=== PATIENT | male | born 1935 | race Caucasian/White ===

== ENCOUNTER 2017-04-24 14:58 | Inpatient (IN) ==
[2017-04-24 15:16] VITALS: BMI 31.1
[2017-04-24] MEDS ORDERED: ACETAMINOPHEN 500 MG TABLET PO PRN (16:05)
--- NOTE | 2017-04-24 16:39 | IRU History & Physical Report ---
[facility] IRU Date: [id number] Chief complaint: My arm hurts HPI: Mr. Mahajan underwent left reverse shoulder procedure at [facility] on 04/22/2017. He had severe degenerative arthritis resulting in the need for this procedure. At home he does typically walk with a 4 wheeled walker. However the present time he is nonweightbearing on the left shoulder because the recent surgery. The patient's cognition has transiently declined. He was confused in the immediate postoperative timeframe. When I evaluated him today he was more alert and seemed to be aware of his surroundings. He does have multiple comorbidities at home. He does have diabetes mellitus type 2 on oral agents only. He is monitoring his blood sugars twice daily. He reports that his fasting sugars typically are around 89-100. In addition he has hypertension, history of coronary artery disease status post myocardial infarction, osteoarthritis as well as depression. Patient states that he is very motivated to get back home. He lives with his . At home he is independent with activities. As noted, he does walk with a four-wheel walker which is not going to be feasible at this point because of his left reverse shoulder procedure. He has a ramp getting up into his home. He does have a basement but does not go down the stairs. Patient does have urinary incontinence. He is at risk for skin breakdown in this regard. He is also at risk for cellulitis and skin infection in view of his diabetes mellitus. Because of the reverse shoulder procedure, he will require occupational therapy to be trained how to cleanse himself and avoid skin breakdown. Patient has developed some postoperative anemia. This will need to be monitored as well and may impact his exercise tolerance. Finally, he does have recent use of supplemental oxygen via nasal cannula in the immediate postoperative timeframe. He does have some shortness of breath. The following medical conditions will impact his therapy: 1, dyspnea with activity and acute respiratory failure resulting in need for supplemental oxygen 2. Diabetes mellitus type 2 increasing his risk for skin breakdown 3. Urinary incontinence increasing his risk for skin breakdown. 4. Depression 5. Anemia which may result in further risk of hypotension and require blood transfusion. The following therapies will be needed: 1. Physical therapy: 90 minutes daily, 5 days weekly in order to improve ambulation and safety in 2. Occupational therapy: 90 minutes daily, 5 days weekly in order to teach and ensure safety with upper and lower extremity dressing in view of the reverse shoulder procedure. In addition personal hygiene will be addressed in view of his urinary incontinence in order to prevent skin breakdown. 3. Dietitian: Patient education will be provided with regard to 4. Medical management: He will require physician visit at least 3 days weekly in order to treat acute respiratory failure which has required oxygen therapy, postoperative anemia, diabetes mellitus, depression. 5. 24 hour Rehabilitation Nursing to monitor and address the following: Blood glucose monitoring for diabetes mellitus, oxygen saturations in view of recent anemia and hypoxemia, mental status changes in view of recent confusion which has improved. 6. Care Management to address the following: Home needs including assistive devices, Meals on Wheels etc. if needed. Review of Systems - Constitutional Constitutional: Present: daytime sleepiness, fatigue. Absent: fever(s) - EENMT Eyes: Absent: blurry vision, change in vision, diplopia Ears: Absent: ear discharge, ear pain Balance: Absent: vertigo Mouth/Throat: Absent: pain, sore throat, changes in swallowing - Cardiovascular Cardiovascular: Present: dyspnea on exertion. Absent: chest pain, palpitations Rhythm: Present: regular rhythm Vascular: Absent: intermittent claudication, pallor of an extermity, pedal edema - Respiratory Respiratory: Present: dyspnea. Absent: cough, hemoptysis, wheezing - Gastrointestinal Gastrointestinal: Absent: abdominal pain, change in bowel habits, change in stool character, constipation, diarrhea - Musculoskeletal Musculoskeletal: Present: limited range of motion (left reverse shoulder.) - Neurological Neurological: Present: confusion - Psychiatric Psychiatric: Present: depression. Absent: anxiety PFS Patient Stated Medical History Cerebrovascular Accident Yes: TIA Dementia Yes Transient Ischemic Attacks ( Yes: Age 76 TIA) Hearing Loss Yes Coronary Artery Disease Yes Hypertension Yes Myocardial Infarction Yes: 2015, stent placed Pneumonia Yes Sleep Apnea Yes Diabetes Mellitus Type 2 Yes Gastroesophageal Reflux Yes Disease Ulcer Yes Hx Incontinence Yes Anemia Yes Osteoarthritis Yes Anesthesia Reactions No Blood Transfusions No Chemotherapy No Malignant Hyperthermia No Other No Now No Clinic Medical History (Last Updated 04/24/17 @ 08:57 by AUTUMN Joyner) Anxiety (Chronic Medical) Coronary artery disease (Chronic Medical) Depression (Chronic Medical) Diabetes (Chronic Medical) Heart attack (Chronic Medical) High blood pressure (Chronic Medical) High cholesterol (Chronic Medical) Osteoarthritis (Chronic Medical) 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 Rt VAIBHAV Family History: Family History (Last Reviewed 03/27/17 @ 10:05 by Mateo Xavier MD) Mother Arthritis Sister High blood pressure High cholesterol - Social History Smoking status: Former smoker packs per day: 2 (From age [age]) Packs-years: 62 Substance use type: does not use Alcohol intake frequency: does not drink Current occupational status: retired Current residence: Apartment/Private Home Medications Home Medications Medication Instructions Recorded Confirmed Type Pravastatin Sodium [Pravachol] 40 mg PO HS #0 05/04/10 04/24/17 History raNITIdine HCl [Ranitidine HCl] 300 mg PO HS #0 05/04/10 04/24/17 History Sucralfate 1 gm PO HS #0 07/20/11 04/24/17 History Clopidogrel Bisulfate [Plavix] 75 mg PO DAILY #0 04/13/13 04/24/17 History Metformin HCl 1,000 mg PO BID #0 03/28/16 04/24/17 History Carvedilol 6.25 mg PO BID #0 11/11/16 04/24/17 History Escitalopram Oxalate 20 mg PO DAILY #0 11/11/16 04/24/17 History Quetiapine Fumarate 50 mg PO HS #0 11/11/16 04/24/17 History Acetaminophen [Acetaminophen Extra 500 mg PO Q4HPRN PRN 03/27/17 04/24/17 History Strength] Aspirin *EC* [Ecotrin] 1 tab PO DAILY 03/27/17 04/24/17 History Oxybutynin Chloride [Ditropan Xl] 10 mg PO DAILY 04/22/17 04/24/17 History Allergies Allergy/AdvReac Type Severity Reaction Status Date / Time aspirin AdvReac Unknown Bleeding Verified 04/22/17 15:43 hydrocodone AdvReac Unknown Confusion Verified 04/22/17 15:43 oxycodone AdvReac Unknown Confusion Verified 04/22/17 15:43 Exam Height: 1.85 m Weight: 106.9 kg Body Mass Index: 31.1 - Constitutional Present: no acute distress, cooperative (patient was initially somewhat somnolent but was easily awakened. Seems to be a bit depressed.) - Routine HEENT Exam Head: Present: normocephalic Eye: Present: EOMI, PERRL. Absent: conjunctival icterus, scleral injection ENT: Present: mucous membranes moist - Routine Neck Exam Present: supple, full ROM - Routine Chest/Breast/Axilla Exam Chest wall: Absent: tenderness - Routine Respiratory Exam Present: dyspnea, CTA bilaterally. Absent: accessory muscle use - Routine Cardiovascular Exam Present: RRR, S1, S2, no murmur - Routine Abdominal Exam Present: soft, normoactive bowel sounds, non distended, non tender - Routine Extremities Exam Present: non tender, pulses intact. Absent: edema Comments: Extremity examination demonstrates significant toe deformity which may be a factor in his ambulatory ability. Pulses are good. There is no edema. There is no cyanosis. - Routine Skin Exam Present: intact, dry. 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 He will require retraining and ambulation and transfers as well as addressing both upper and lower extremity. (2) S/p reverse total shoulder arthroplasty Qualifiers: Laterality: left Qualified Code(s): Z96.612 - Presence of left artificial shoulder joint Current visit: Yes Status: Acute See above. (3) Coronary artery disease Qualifiers: Coronary Disease-Associated Artery/Lesion type: [place] artery [place] vs. transplanted heart: [place] heart Associated angina: without angina Qualified Code(s): I25.10 - Atherosclerotic heart disease of [place] coronary artery without angina pectoris Current visit: No Status: Chronic (4) Depression Qualifiers: Depression Type: major depressive disorder Major depression recurrence: recurrent Active/Remission status: in partial remission Qualified Code(s): F33.41 - Major depressive disorder, recurrent, in partial remission Current visit: No Status: Chronic Patient has a diagnosis of depression. This will impact his recovery and will require 24 hour rehab nursing observation and management. (5) Diabetes Qualifiers: Diabetes mellitus type: type 2 Diabetes mellitus complication status: with circulatory complication Diabetes mellitus complication detail: with other circulatory complications Diabetes mellitus terminal manager insulin use: without terminal manager use Qualified Code(s): E11.59 - Type 2 diabetes mellitus with other circulatory complications Current visit: No Status: Chronic Patient monitors his sugars twice daily. He has a history of coronary artery disease likely impacted by the diabetes. He does not know what his A1c is running. However the presence of diabetes will require 24-hour nursing monitoring. In addition he is at risk for skin breakdown due to his incontinence and the diabetes. He will require occupational therapy for training on personal hygiene. (6) Urinary incontinence Qualifiers: Urinary Incontinence type: urinary incontinence without sensory awareness Qualified Code(s): N39.42 - Incontinence without sensory awareness Current visit: Yes Status: Chronic His urinary incontinence will increase his risk for skin breakdown and will require occupational therapy training for prevention of this. (7) Postoperative anemia Current visit: Yes Status: Acute He will require medical management and physician evaluation at least 3 days weekly to monitor his anemia and other medical issues. (8) Acute respiratory failure Qualifiers: Respiratory failure complication: hypoxia Qualified Code(s): J96.01 - Acute respiratory failure with hypoxia Current visit: Yes Status: Acute Patient required oxygen in the postoperative timeframe. Currently he is on room air but this will need to be monitored. DVT Prophylaxis: SCD's, Lovenox Resuscitation Status: Full Code - Course Hospital Course: Carrington Galaviz MD: - Interventions to Obtain Goals Goals Progress/Modifications: Patient's goals will include retraining in upper and lower extremity dressing in view of the reverse shoulder procedure, safety with transfers and ambulation to return him to an independent or modified independent level of functioning at his home with his . Barriers to progress will include pain control as well as the fact that he will not be able to utilize his left shoulder. In addition his depression may or may not be a factor in his progress.
--- NOTE | 2017-04-24 16:59 | IRU 24Hr Post Admit Eval ---
24 Hr Post Admission Physical - Relevant Changes Relevant Changes: No Reviewed: I have reviewed the patient's information and concur with the finding and results of the pre-admission screen. Certification: I certify the patient for rehabilitation. 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 Status: Chronic Code(s): M19.112 - Post-traumatic osteoarthritis, left shoulder; S46.002S - Unspecified injury of muscle(s) and tendon(s) of the rotator cuff of left shoulder, sequela Classification: Present on IRF Admission, IRF Tx That Should Address Diagnosis, Diagnosis Requiring Medical Follow Up (2) S/p reverse total shoulder arthroplasty Status: Acute Qualifiers: Laterality: left Qualified Code(s): Z96.612 - Presence of left artificial shoulder joint Code(s): Z96.619 - Presence of unspecified artificial shoulder joint Classification: Present on IRF Admission, IRF Tx That Should Address Diagnosis, Diagnosis Requiring Medical Follow Up (3) Coronary artery disease Status: Chronic Qualifiers: Coronary Disease-Associated Artery/Lesion type: [place] artery [place] vs. transplanted heart: [place] heart Associated angina: without angina Qualified Code(s): I25.10 - Atherosclerotic heart disease of [place] coronary artery without angina pectoris Code(s): I25.10 - Atherosclerotic heart disease of [place] coronary artery without angina pectoris (4) Depression Status: Chronic Qualifiers: Depression Type: major depressive disorder Major depression recurrence: recurrent Active/Remission status: in partial remission Qualified Code(s): F33.41 - Major depressive disorder, recurrent, in partial remission Code(s): F32.9 - Major depressive disorder, single episode, unspecified Classification: Present on IRF Admission, Diagnosis Requiring Medical Follow Up (5) Diabetes Status: Chronic Qualifiers: Diabetes mellitus type: type 2 Diabetes mellitus complication status: with circulatory complication Diabetes mellitus complication detail: with other circulatory complications Diabetes mellitus retirement insulin use: without retirement use Qualified Code(s): E11.59 - Type 2 diabetes mellitus with other circulatory complications Code(s): E11.9 - Type 2 diabetes mellitus without complications Classification: Present on IRF Admission, IRF Tx That Should Address Diagnosis, Diagnosis Requiring Medical Follow Up (6) Urinary incontinence Status: Chronic Qualifiers: Urinary Incontinence type: urinary incontinence without sensory awareness Qualified Code(s): N39.42 - Incontinence without sensory awareness Code(s): R32 - Unspecified urinary incontinence Classification: Present on IRF Admission, IRF Tx That Should Address Diagnosis, Diagnosis Requiring Medical Follow Up (7) Postoperative anemia Status: Acute Code(s): D64.9 - Anemia, unspecified Classification: Present on IRF Admission, IRF Tx That Should Address Diagnosis, Diagnosis Requiring Medical Follow Up (8) Acute respiratory failure Status: Acute Qualifiers: Respiratory failure complication: hypoxia Qualified Code(s): J96.01 - Acute respiratory failure with hypoxia Code(s): J96.00 - Acute respiratory failure, unspecified whether with hypoxia or hypercapnia Classification: Diagnosis Requiring Medical Follow Up - Prior Functional Status Lives With: Spouse Residence Type: Apartment/Private Home Assitive Devices: Four Wheeled Walker Prior Functional Status: Indep. at home or school, Used assistive device - Current Functional Status Failed Alternative Therapy: Arrived from Acute Care Patient Requirements: The patient requires oversight by rehabilitation physician to manage their rehabilitation treatment plan and multidisciplinary approach to care that can only be provided in an IRF and requires a multidisciplinary approach to care, provided by professional PTs, OTs, STs, dieticians, RTs, rehabilitation nurses and is not available in lesser levels of care. Limitiations Req: Mobility Impairment, ADL Impairment, Respiratory Impairment Physical Therapy Minutes: 90 Occupational Therapy Minutes: 90 Therapy: The patient is to receive therapy at least 5 days a week. ROM Deficit: Left Upper Extremity - Complications/Comorbidities Impact on Functional Outcomes: Patient's recent left reverse shoulder procedure has resulted in decreased ability for ADLs including upper and lower extremity dressing as well as ambulation. Barriers to Discharge: Weakness, Pain Control - Plan to Avoid Complications Plan to Avoid Complications: The patient cannot receive this care in a lesser intensive setting such as Retirement or Outpatient Therapy due to the patient requiring the following : Recent left reverse shoulder procedure resulting in markedly reduced ability for upper and lower extremity dressing as well as ambulation. He has diabetes mellitus type two and chronic urinary incontinence which place him at increased risk for skin breakdown. He will require intensive, individualized plan of care to involve physical therapy 90 minutes daily, 5 days weekly, occupational therapy, 90 minutes daily, 5 days weekly, dietitian, rehabilitation nursing on a 24-hour basis and physician management at least 3 days weekly to address these issues and to return him to his home and prior level of functioning.
[2017-04-24] MEDS: CARVEDILOL 6.25 MG TABLET PO SCH (17:59)
[2017-04-24] MEDS: METFORMIN 1,000 MG TABLET PO SCH (17:59)
--- NOTE | 2017-04-24 18:25 | Progress Note ---
Progress Note: I was going to start enoxeparin but noted the drop in hgb. Will hold off for now. SCD's are ordered.
[2017-04-24] MEDS ORDERED: ENOXAPARIN 40 MG/0.4 ML INJECTION SQ SCH (18:30)
[2017-04-24] MEDS ORDERED: NS FLUSH BAG 500ml IV PRN (19:11)
[2017-04-24] MEDS ORDERED: SALINE FLUSH 10ml SYRINGE IVF PRN (19:11)
[2017-04-24] MEDS: RANITIDINE 300 MG TABLET PO SCH (22:08)
[2017-04-24] MEDS: QUETIAPINE 50 MG TABLET PO SCH (22:09)
[2017-04-24] MEDS: PRAVASTATIN 40 MG TABLET PO SCH (22:09)
[2017-04-24] MEDS: SUCRALFATE 1 GM TABLET PO SCH (22:09)
[2017-04-25] MEDS: TRAMADOL 50 MG TABLET PO PRN ×2 (06:21→12:41)
[2017-04-25] MEDS ORDERED: FUROSEMIDE 20 MG/2 ML INJECTION IVP ONE (08:43)
[2017-04-25] MEDS: CARVEDILOL 6.25 MG TABLET PO SCH ×2 (09:43→18:14)
[2017-04-25] MEDS: METFORMIN 1,000 MG TABLET PO SCH ×2 (09:44→18:15)
[2017-04-25] MEDS: ESCITALOPRAM 20 MG TABLET PO SCH (09:45)
[2017-04-25] MEDS: POLYETHYL GLYCOL 3350 17gm PACKET PO SCH (09:45)
[2017-04-25] MEDS: CLOPIDOGREL 75 MG TABLET PO SCH (09:45)
[2017-04-25] MEDS: ASPIRIN *EC* 81 MG TABLET PO SCH (09:54)
--- NOTE | 2017-04-25 13:55 | IRU Progress Note ---
- Subjective/Serverity of Illness Mr. Mahajan states that he is tolerating therapy well. He arrived yesterday on the unit after a left reverse shoulder procedure. He does have a loose cough. He states he frequently has that. Lungs sound a bit wheezy at the present time. He denies any chest pain. Does have some dyspnea with exertion. He states that his bowels are moving. Nutritionally he states that he is eating adequately. The patient does have history of acute blood loss anemia/postoperative anemia. For that reason I held his Lovenox yesterday. His hemoglobin is actually up today so we will start Lovenox for DVT prophylaxis. Exam Vital Signs: Temperature 98.3 F 04/25/17 08:00 Pulse Rate 66 04/25/17 08:00 Respiratory Rate 20 04/25/17 08:00 Blood Pressure 146/67 H 04/25/17 08:00 Pulse Oximetry 95 04/25/17 08:00 Oxygen Delivery Method Room Air Height: 1.85 m Weight: 106.9 kg Body Mass Index: 31.1 - Constitutional Present: no acute distress Comments: The patient is awake, alert and oriented and in no acute distress. He reports that he frequently has a cough. Pupils are equal. The neck is supple. Chest: Has a few scattered wheezes bilaterally. No crackles noted. Cor: RR with no sunny, click nor murmur Abd: soft with normo-active bowel sounds. There are no masses, no tenderness and no guarding. Extremities: No edema is noted. There are good pulses in both ankles. No cyanosis is present. - Routine HEENT Exam Head: Present: normocephalic Eye: Present: EOMI, PERRL ENT: Present: mucous membranes moist - Routine Neck Exam Present: supple, full ROM - Routine Respiratory Exam Present: dyspnea, wheezes - Routine Cardiovascular Exam Present: RRR, S1, S2, no murmur - Routine Abdominal Exam Present: soft, normoactive bowel sounds, non distended, non tender - Routine Extremities Exam Absent: cyanosis, edema - Routine Skin Exam Present: intact. Absent: erythema - Routine Neurological Exam Present: alert, oriented X3, CN II-XII intact - Routine Psychiatric Exam Present: normal affect, normal thought process Results IRU - Labs Labs: Hemoglobin improved from 8.6-9.3. 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 (2) S/p reverse total shoulder arthroplasty Qualifiers: Laterality: left Qualified Code(s): Z96.612 - Presence of left artificial shoulder joint Current visit: Yes Status: Acute Seems to be stable status post shoulder arthroplasty. (3) Coronary artery disease Qualifiers: Coronary Disease-Associated Artery/Lesion type: [place] artery [place] vs. transplanted heart: [place] heart Associated angina: without angina Qualified Code(s): I25.10 - Atherosclerotic heart disease of [place] coronary artery without angina pectoris Current visit: No Status: Chronic Patient does have history of coronary artery disease. He denies any chest pain. He does have wheezes and some dyspnea however. (4) Depression Qualifiers: Depression Type: major depressive disorder Major depression recurrence: recurrent Active/Remission status: in partial remission Qualified Code(s): F33.41 - Major depressive disorder, recurrent, in partial remission Current visit: No Status: Chronic Patient does have history of depression. He is on Lexapro in this regard. Does tend to fall off to sleep occasionally. (5) Diabetes Qualifiers: Diabetes mellitus type: type 2 Diabetes mellitus complication status: with circulatory complication Diabetes mellitus complication detail: with other circulatory complications Diabetes mellitus prison insulin use: without terminal carman use Qualified Code(s): E11.59 - Type 2 diabetes mellitus with other circulatory complications Current visit: No Status: Chronic Blood sugars are stable at 114, 130, 174. No hypoglycemic spells are noted. He is on oral agents only. (6) Urinary incontinence Qualifiers: Urinary Incontinence type: urinary incontinence without sensory awareness Qualified Code(s): N39.42 - Incontinence without sensory awareness Current visit: Yes Status: Chronic Because the urinary incontinence, he is at risk of skin breakdown. Therapy will address personal hygiene as well. (7) Postoperative anemia Current visit: Yes Status: Acute Patient's hemoglobin did improve. We will start Lovenox at this point. (8) Acute respiratory failure Qualifiers: Respiratory failure complication: hypoxia Qualified Code(s): J96.01 - Acute respiratory failure with hypoxia Current visit: Yes Status: Acute He required oxygen in the immediate postoperative timeframe. Monitoring of saturations is occurring and he seems to be stable on room air at present. However does have a cough. (9) Acute bronchospasm Current visit: Yes Status: Acute Patient states that he is used to breathing treatments in the past. He does have wheezes bilaterally. He is coughing. There is no fever and he is not producing any sputum. We will utilize some albuterol and do a chest X-ray. DVT Prophylaxis: SCD's, Lovenox Resuscitation Status: Full Code - Course Hospital Course: Carrington Galaviz MD: 04/25/17 13:59 Tolerating therapy well. Chest exam shows some wheezes. Oxygen saturations are above 90% on room air however. We will check a chest x-ray, and initiate beta agonist therapy. Hemoglobin improved. Therefore we will start Lovenox for DVT prophylaxis. - Interventions to Obtain Goals PT Treatment Plan: Balance/Proprioception, Functional Activities, Gait Training , Patient/Family Education, Therapeutic Exercise OT Treatment Plan: ADL (Basic Care), Balance Training, Pt./Family Education Goals Progress/Modifications: Please note that the patient's individual plan of care was developed and documented today, requiring review of therapy notes, medical conditions and anticipated functional recovery. Please see separate document.
--- NOTE | 2017-04-25 14:04 | IRU Plan of Care ---
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 Code(s): M19.112 - Post-traumatic osteoarthritis, left shoulder; S46.002S - Unspecified injury of muscle(s) and tendon(s) of the rotator cuff of left shoulder, sequela Status: Chronic Classification: Present on IRF Admission, IRF Tx That Should Address Diagnosis, Diagnosis Requiring Medical Follow Up (2) S/p reverse total shoulder arthroplasty Qualifiers: Laterality: left Qualified Code(s): Z96.612 - Presence of left artificial shoulder joint Code(s): Z96.619 - Presence of unspecified artificial shoulder joint Status: Acute Classification: Present on IRF Admission, IRF Tx That Should Address Diagnosis, Diagnosis Requiring Medical Follow Up (3) Coronary artery disease Qualifiers: Coronary Disease-Associated Artery/Lesion type: [place] artery [place] vs. transplanted heart: [place] heart Associated angina: without angina Qualified Code(s): I25.10 - Atherosclerotic heart disease of [place] coronary artery without angina pectoris Code(s): I25.10 - Atherosclerotic heart disease of [place] coronary artery without angina pectoris Status: Chronic (4) Depression Qualifiers: Depression Type: major depressive disorder Major depression recurrence: recurrent Active/Remission status: in partial remission Qualified Code(s): F33.41 - Major depressive disorder, recurrent, in partial remission Code(s): F32.9 - Major depressive disorder, single episode, unspecified Status : Chronic Classification: Present on IRF Admission, Diagnosis Requiring Medical Follow Up (5) Diabetes Qualifiers: Diabetes mellitus type: type 2 Diabetes mellitus complication status: with circulatory complication Diabetes mellitus complication detail: with other circulatory complications Diabetes mellitus nursing home insulin use: without long term care social worker use Qualified Code(s): E11.59 - Type 2 diabetes mellitus with other circulatory complications Code(s): E11.9 - Type 2 diabetes mellitus without complications Status: Chronic Classification: Present on IRF Admission, IRF Tx That Should Address Diagnosis, Diagnosis Requiring Medical Follow Up (6) Urinary incontinence Qualifiers: Urinary Incontinence type: urinary incontinence without sensory awareness Qualified Code(s): N39.42 - Incontinence without sensory awareness Code(s): R32 - Unspecified urinary incontinence Status: Chronic Classification: Present on IRF Admission, IRF Tx That Should Address Diagnosis, Diagnosis Requiring Medical Follow Up (7) Postoperative anemia Code(s): D64.9 - Anemia, unspecified Status: Acute Classification: Present on IRF Admission, IRF Tx That Should Address Diagnosis, Diagnosis Requiring Medical Follow Up (8) Acute respiratory failure Qualifiers: Respiratory failure complication: hypoxia Qualified Code(s): J96.01 - Acute respiratory failure with hypoxia Code(s): J96.00 - Acute respiratory failure, unspecified whether with hypoxia or hypercapnia Status: Acute Classification: Diagnosis Requiring Medical Follow Up (9) Acute bronchospasm Code(s): J98.01 - Acute bronchospasm Status: Acute Classification: IRF Tx That Should Address Diagnosis, Complications Since IRF Admission - Relevant Changes Relevant Changes: No Reviewed: I have reviewed the patient's information and concur with the finding and results of the pre-admission screen. Certification: I certify the patient for rehabilitation. - Medical Prognosis Medical Prognosis: Good Vital Signs: Last Vital Signs Temp 98.3 F 04/25/17 08:00 Pulse 66 04/25/17 08:00 Resp 20 04/25/17 08:00 BP 146/67 H 04/25/17 08:00 Pulse Ox 95 04/25/17 08:00 - Anticipated Interventions Anticipated Interventions: The patient requires inpatient IRF care for PT, OT, and/or ST for residuals remaining from left reverse shoulder surgery resulting in muscular weakness and strength deficits. ROM Deficit: Left Upper Extremity - FIM Toileting Adaptive Equipment: Grab Bars Number of Incontinent Voids: 1 - Current Functional Status Failed Alternative Therapy: Arrived from Acute Care Patient Requires: The patient requires oversight by rehabilitation physician to manage their rehabilitation treatment plan and multidisciplinary approach to care that can only be provided in an IRF and requires a multidisciplinary approach to care, provided by professional PTs, OTs, STs, dieticians, RTs, rehabilitation nurses and is not available in lesser levels of care. Physical Therapy Minutes: 90 Occupational Therapy Minutes: 90 Therapy: The patient is to receive therapy at least 5 days a week. Plan of Care Comment: No significant modifications from initial plan of care are noted with the exception of the development of wheezes. - Anticipated LOS/Outcomes Anticipated Functional Outcome: It is anticipated Mr. Mahajan will be able to return home with his and be able to perform his activities of daily living including upper and lower extremity dressing and ambulation in a modified independent manner. Anticipated DC Destination: Home, Self Care, Home Health Service Home Safety Plan: The patient will be provided with the development of a Home Safety Plan for return to a home or home-like environment and and to ensure safety post discharge. - Plan to Avoid Complications Barriers to Attaining Goals: Weakness, Endurance, Medical Limitation Plan to Avoid Complications: The patient cannot receive this care in a lesser intensive setting such as [facility] or Outpatient Therapy due to the patient requiring the following : The patient has multiple medical problems including coronary artery disease, recent respiratory failure, recent acute postoperative anemia as well as new development of acute bronchospasm. He will require an individualized intensive program of physical therapy, occupational therapy, 24 rehabilitation nursing monitoring for his oxygen saturations and pulmonary status as well as medical supervision at least 3 days weekly for him to return home and avoid a readmission. .
[2017-04-25] MEDS: ENOXAPARIN 40 MG/0.4 ML INJECTION SQ SCH (14:40)
[2017-04-25] MEDS ORDERED: FUROSEMIDE 20 MG/2 ML INJECTION IVP STA (16:42)
--- NOTE | 2017-04-25 17:01 | Progress Note ---
Progress Note: Patient was noted to suddenly developed shortness of breath and hypoxemia. Oxygen saturations were initially in the 80s. Oxygen was applied by nasal cannula. This got the saturation up to over 90. However subsequently he went down into the 40s by report. Rapid response was called. I did go to evaluate the patient. He is awake, alert. He does feel short of breath. He denies any chest pain. His primary care physician Dr. Lewis has been contacted in this regard. He ordered a chest x-ray, breathing treatment and IV Lasix. In addition a Herman catheter is being placed.
--- NOTE | 2017-04-25 17:19 | Progress Note ---
Progress Note: Pt has had a good diuresis thus far. He is breathing better. There are a few wheezes still present on exam. He states that he feels much better. CXR reviewed and shows RLL fluffy infiltrate. Will defer to Dr. Lewis for further treatment; however, the patient is doing much better at present with sats 99- 100 on face mask at 5 liters.
[2017-04-25] MEDS: ALBUTEROL/IPRATROPIUM 2.5mg-0.5mg/3ml NEB AEROSOL SCH ×2 (17:21→18:59)
[2017-04-25] MEDS: RANITIDINE 300 MG TABLET PO SCH (22:39)
[2017-04-25] MEDS: SUCRALFATE 1 GM TABLET PO SCH (22:39)
[2017-04-25] MEDS: QUETIAPINE 50 MG TABLET PO SCH (22:39)
[2017-04-25] MEDS: PRAVASTATIN 40 MG TABLET PO SCH (22:39)
[2017-04-26] MEDS: ACETAMINOPHEN 500 MG TABLET PO PRN ×3 (04:26→19:16)
[2017-04-26] MEDS: TRAMADOL 50 MG TABLET PO PRN ×2 (06:51→13:30)
[2017-04-26] MEDS: ALBUTEROL/IPRATROPIUM 2.5mg-0.5mg/3ml NEB AEROSOL SCH ×5 (07:43→21:14)
--- NOTE | 2017-04-26 08:11 | XRay Report ---
Indication: SOA PROCEDURE: XR chest 1V: Encounter: Initial Comparison: April 05, 2016 Findings: Severe motion artifact limiting the quality the exam. Poor evaluation of the lung bases. Small areas of consolidation cannot be excluded nor can small pleural effusions. No gross pneumothorax. Upper lung evans are grossly clear and similar to the prior study. Cardiac silhouette remains enlarged. Mediastinal contours are grossly stable. Impression: Motion artifact limiting evaluation of the lung bases. I cannot exclude lower lobe infiltrates or small effusions. Repeat imaging is recommended. .
[2017-04-26] MEDS: METFORMIN 1,000 MG TABLET PO SCH ×2 (08:38→17:55)
[2017-04-26] MEDS: CARVEDILOL 6.25 MG TABLET PO SCH ×2 (08:38→17:55)
[2017-04-26] MEDS: ESCITALOPRAM 20 MG TABLET PO SCH (08:39)
[2017-04-26] MEDS: ASPIRIN *EC* 81 MG TABLET PO SCH (08:39)
[2017-04-26] MEDS: CLOPIDOGREL 75 MG TABLET PO SCH (08:39)
[2017-04-26] MEDS: ENOXAPARIN 40 MG/0.4 ML INJECTION SQ SCH (08:39)
[2017-04-26] MEDS: POLYETHYL GLYCOL 3350 17gm PACKET PO SCH (08:39)
[2017-04-26] MEDS: RANITIDINE 300 MG TABLET PO SCH (22:19)
[2017-04-26] MEDS: SUCRALFATE 1 GM TABLET PO SCH (22:19)
[2017-04-26] MEDS: PRAVASTATIN 40 MG TABLET PO SCH (22:19)
[2017-04-26] MEDS: QUETIAPINE 50 MG TABLET PO SCH (22:19)
[2017-04-27] MEDS: NALOXEGOL 12.5 MG TABLET PO SCH ×2 (05:23→07:13)
[2017-04-27] MEDS: ALBUTEROL/IPRATROPIUM 2.5mg-0.5mg/3ml NEB AEROSOL SCH ×6 (07:14→19:55)
[2017-04-27] MEDS: ESCITALOPRAM 20 MG TABLET PO SCH (09:03)
[2017-04-27] MEDS: METFORMIN 1,000 MG TABLET PO SCH ×2 (09:03→17:59)
[2017-04-27] MEDS: CLOPIDOGREL 75 MG TABLET PO SCH (09:03)
[2017-04-27] MEDS: CARVEDILOL 6.25 MG TABLET PO SCH ×2 (09:04→17:59)
[2017-04-27] MEDS: ASPIRIN *EC* 81 MG TABLET PO SCH (09:04)
[2017-04-27] MEDS: ENOXAPARIN 40 MG/0.4 ML INJECTION SQ SCH (09:04)
[2017-04-27] MEDS: POLYETHYL GLYCOL 3350 17gm PACKET PO SCH (09:05)
[2017-04-27] MEDS: TRAMADOL 50 MG TABLET PO PRN ×2 (10:06→16:13)
[2017-04-27] MEDS: ACETAMINOPHEN 500 MG TABLET PO PRN ×2 (12:27→20:40)
[2017-04-27] MEDS: QUETIAPINE 50 MG TABLET PO SCH (20:41)
[2017-04-27] MEDS: PRAVASTATIN 40 MG TABLET PO SCH (20:41)
[2017-04-27] MEDS: RANITIDINE 300 MG TABLET PO SCH (20:41)
[2017-04-27] MEDS: SUCRALFATE 1 GM TABLET PO SCH (20:41)
[2017-04-28] MEDS: TRAMADOL 50 MG TABLET PO PRN ×3 (00:19→15:52)
[2017-04-28] MEDS: SUCRALFATE 1 GM TABLET PO SCH ×2 (00:47→21:05)
[2017-04-28] MEDS: QUETIAPINE 50 MG TABLET PO SCH ×2 (00:48→21:05)
[2017-04-28] MEDS: RANITIDINE 300 MG TABLET PO SCH ×2 (00:48→21:05)
[2017-04-28] MEDS: PRAVASTATIN 40 MG TABLET PO SCH ×2 (00:48→21:05)
[2017-04-28] MEDS: NALOXEGOL 12.5 MG TABLET PO SCH (06:25)
[2017-04-28] MEDS: ALBUTEROL/IPRATROPIUM 2.5mg-0.5mg/3ml NEB AEROSOL SCH ×6 (07:18→17:35)
[2017-04-28] MEDS: ENOXAPARIN 40 MG/0.4 ML INJECTION SQ SCH (10:53)
[2017-04-28] MEDS: METFORMIN 1,000 MG TABLET PO SCH ×2 (10:53→17:36)
[2017-04-28] MEDS: CARVEDILOL 6.25 MG TABLET PO SCH ×2 (10:54→17:36)
[2017-04-28] MEDS: CLOPIDOGREL 75 MG TABLET PO SCH (10:54)
[2017-04-28] MEDS: ESCITALOPRAM 20 MG TABLET PO SCH (10:54)
[2017-04-28] MEDS: ASPIRIN *EC* 81 MG TABLET PO SCH (10:54)
[2017-04-28] MEDS: ACETAMINOPHEN 500 MG TABLET PO PRN (17:36)
[2017-04-29] MEDS: ALBUTEROL/IPRATROPIUM 2.5mg-0.5mg/3ml NEB AEROSOL SCH ×4 (01:43→19:24)
[2017-04-29] MEDS: NALOXEGOL 12.5 MG TABLET PO SCH (06:05)
[2017-04-29] MEDS: CARVEDILOL 6.25 MG TABLET PO SCH ×2 (08:39→17:47)
[2017-04-29] MEDS: METFORMIN 1,000 MG TABLET PO SCH ×2 (08:39→17:48)
[2017-04-29] MEDS: ESCITALOPRAM 20 MG TABLET PO SCH (08:40)
[2017-04-29] MEDS: TRAMADOL 50 MG TABLET PO PRN (08:40)
[2017-04-29] MEDS: ASPIRIN *EC* 81 MG TABLET PO SCH (08:40)
[2017-04-29] MEDS: ENOXAPARIN 40 MG/0.4 ML INJECTION SQ SCH (08:41)
[2017-04-29] MEDS: CLOPIDOGREL 75 MG TABLET PO SCH (08:45)
--- NOTE | 2017-04-29 10:31 | IRU Progress Note ---
- Subjective/Serverity of Illness Mr. Mahajan was evaluated in his room today. In addition, I visited with physical therapy regarding his situation. He is excessively sleepy this morning for some reason. He reports he did not sleep well last night. He is on Seroquel every night. He did not really want to talk to me much this morning although he is congenial. He states that his left shoulder continues to hurt. He is not supposed to be using a but occasionally does move the left arm. Continues to progress with physical therapy and occupational therapy. Medically he does have history of dyspnea with hypoxemia. Did have some fluid excess last week after blood transfusion. That was successfully treated with oxygen therapy and diuresis. Denies any dyspnea at the present time and denies cough or sputum. Chest x-ray was reviewed and appeared to possibly show some infiltrates. However this time his lungs are clear and he does not have any wheezing nor any evidence of infection. He does have underlying depression as well. He is on Lexapro. This could be a factor in his sleepiness. Exam Vital Signs: Temperature 98.6 F 04/29/17 07:23 Pulse Rate 66 04/29/17 07:23 Respiratory Rate 16 04/29/17 07:23 Blood Pressure 148/70 H 04/29/17 07:23 Pulse Oximetry 92 04/29/17 07:23 Oxygen Delivery Method Room Air Oxygen Flow Rate 1 Height: 1.85 m Weight: 106.9 kg Body Mass Index: 31.1 - Constitutional Present: no acute distress, somnolent (he is sleepy but easily awakened. He is upset that I did awaken him in fact.) Comments: The patient is sleepy but easily awakened. When he is awake he appears to be oriented and complains predominantly of left shoulder pain. Pupils are equal. The neck is supple. Chest: Clear to auscultation bilaterally. Cor: RR with no sunny, click nor murmur Abd: soft with normo-active bowel sounds. There are no masses, no tenderness and no guarding. Extremities: No edema is noted. No cyanosis is present. Left arm is in a sling. - Routine HEENT Exam Head: Present: normocephalic - Routine Neck Exam Present: supple - Routine Respiratory Exam Present: CTA bilaterally - Routine Cardiovascular Exam Present: RRR, S1, S2, no murmur - Routine Abdominal Exam Present: soft, normoactive bowel sounds, non distended, non tender - Routine Extremities Exam Present: no edema - Routine Skin Exam Present: intact - Routine Neurological Exam Present: oriented X3, CN II-XII intact (seems sleepy. Possibly secondary to not sleeping well at night although not certain. No focal neurologic signs.) - Routine Psychiatric Exam Present: normal affect, normal thought process, cooperative, depressed Results IRU - Labs Labs: Reviewed labs. Hemoglobin stable after transfusion. 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 He is progressing with therapy. Somnolence appears to be a barrier to his progress however. (2) S/p reverse total shoulder arthroplasty Qualifiers: Laterality: left Qualified Code(s): Z96.612 - Presence of left artificial shoulder joint Current visit: Yes Status: Acute Clinically he is stable after his arthroplasty. He is learning to find alternative ways to manage ADLs in view of his recent arthroplasty and immobility of the left shoulder. (3) Coronary artery disease Qualifiers: Coronary Disease-Associated Artery/Lesion type: [place] artery [place] vs. 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 I believe his depression probably plays a role in his sleepiness. He is fairly congenial when he awakens however. (5) Diabetes Qualifiers: Diabetes mellitus type: type 2 Diabetes mellitus complication status: with circulatory complication Diabetes mellitus complication detail: with other circulatory complications Diabetes mellitus prison insulin use: without prison use Qualified Code(s): E11.59 - Type 2 diabetes mellitus with other circulatory complications Current visit: No Status: Chronic (6) Urinary incontinence Qualifiers: Urinary Incontinence type: urinary incontinence without sensory awareness Qualified Code(s): N39.42 - Incontinence without sensory awareness Current visit: Yes Status: Chronic (7) Postoperative anemia Current visit: Yes Status: Acute (8) Acute respiratory failure Qualifiers: Respiratory failure complication: hypoxia Qualified Code(s): J96.01 - Acute respiratory failure with hypoxia Current visit: Yes Status: Acute Oxygen saturations are in the low 90s on room air. No cough and no sputum is noted. Follow-up chest x-ray will be indicated closer to the time of dismissal. (9) Acute bronchospasm Current visit: Yes Status: Acute DVT Prophylaxis: SCD's, Lovenox Resuscitation Status: Full Code - Course Hospital Course: Carrington Galaviz MD: 04/25/17 13:59 Tolerating therapy well. Chest exam shows some wheezes. Oxygen saturations are above 90% on room air however. We will check a chest x-ray, and initiate beta agonist therapy. Hemoglobin improved. Therefore we will start Lovenox for DVT prophylaxis. 04/29/17 10:36 Patient's somnolence and left shoulder pain are barriers to progress. He is progressing with therapy. Continue current plan. - Interventions to Obtain Goals PT Treatment Plan: Balance/Proprioception, Functional Activities, Gait Training , Patient/Family Education, Therapeutic Exercise OT Treatment Plan: ADL (Basic Care), Balance Training, Pt./Family Education
--- NOTE | 2017-04-29 10:58 | Progress Note ---
Progress Note: Please see previous note from today. Patient's is present subsequently and requested a family conference. She reviewed with me the fact that the patient had developed more and more dementia over the last several years. In addition he frequently has angry outbursts which have been occurring for a number of years. That was on display this morning as well. She also indicates that he sleeps quite a bit at home as well. He has been on Seroquel at home for some time. She will be able to assist him at home. Their son will also be available to assist him at the time of dismissal. I told her I appreciated her insight and observations. We will continue working with him and hope to contact her tomorrow or the next day with regard to our recommendations regarding dismissal.
[2017-04-29] MEDS: ACETAMINOPHEN 500 MG TABLET PO PRN ×2 (12:33→17:48)
[2017-04-29] MEDS: RANITIDINE 300 MG TABLET PO SCH (21:04)
[2017-04-29] MEDS: PRAVASTATIN 40 MG TABLET PO SCH (21:05)
[2017-04-29] MEDS: SUCRALFATE 1 GM TABLET PO SCH (21:05)
[2017-04-29] MEDS: QUETIAPINE 50 MG TABLET PO SCH (21:05)
[2017-04-30] MEDS: ALBUTEROL/IPRATROPIUM 2.5mg-0.5mg/3ml NEB AEROSOL SCH ×5 (04:00→16:39)
[2017-04-30] MEDS: NALOXEGOL 12.5 MG TABLET PO SCH (06:24)
[2017-04-30] MEDS: ENOXAPARIN 40 MG/0.4 ML INJECTION SQ SCH (08:52)
[2017-04-30] MEDS: ESCITALOPRAM 20 MG TABLET PO SCH (08:52)
[2017-04-30] MEDS: ASPIRIN *EC* 81 MG TABLET PO SCH (08:52)
[2017-04-30] MEDS: METFORMIN 1,000 MG TABLET PO SCH ×2 (08:52→18:06)
[2017-04-30] MEDS: CLOPIDOGREL 75 MG TABLET PO SCH (08:52)
[2017-04-30] MEDS: ACETAMINOPHEN 500 MG TABLET PO PRN ×2 (08:52→20:41)
[2017-04-30] MEDS: CARVEDILOL 6.25 MG TABLET PO SCH ×2 (08:52→18:06)
--- NOTE | 2017-04-30 09:52 | IRU Progress Note ---
- Subjective/Serverity of Illness Mr. Mahajan continues to have episodes of angry outbursts. His states that is fairly normal for him for the last number of years. In addition he does have worsening sundowners apparently. He is on Seroquel at bedtime. We will ask for psychiatry consultation to see if any medication adjustment might be beneficial in this regard. He is confused frequently. His reports worsening dementia over the past several months/years. He is working with therapy but it is slow progress. Does develop dyspnea with activity. When asked directly if he was having shortness of breath he states that he does not. Saturation with exertion is still 95% on room air. He states that he does not have any cough nor sputum. Does not have any chest discomfort. Exam Vital Signs: Temperature 97.8 F 04/29/17 19:42 Pulse Rate 67 04/30/17 08:00 Respiratory Rate 18 04/30/17 08:00 Blood Pressure 103/54 04/30/17 08:00 Pulse Oximetry 93 04/30/17 08:00 Oxygen Delivery Method Room Air Oxygen Flow Rate 1 Height: 1.85 m Weight: 107.8 kg Body Mass Index: 31.1 - Constitutional Present: mild distress Comments: The patient is awake, alert and able to answer questions. He denies problems, yet not walking very far. He states he can dress himself independently; however , OT indicates Mod/max assist for transfers. Pupils are equal. The neck is supple. Chest: Clear to auscultation bilaterally. Cor: RR with no sunny, click nor murmur Abd: soft with normo-active bowel sounds. There are no masses, no tenderness and no guarding. Extremities: No edema is noted. - Routine Neck Exam Present: supple - Routine Respiratory Exam Present: dyspnea, decreased breath sounds, CTA bilaterally - Routine Cardiovascular Exam Present: RRR, S1, S2, no murmur - Routine Abdominal Exam Present: soft, normoactive bowel sounds, non distended, non tender - Routine Extremities Exam Present: no edema - Routine Neurological Exam Present: alert, CN II-XII intact. Absent: oriented X3 - Routine Psychiatric Exam Present: depressed, anxious (Memory issues noted. ). 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 I will check with OT to see how he is doing this regard. It is noted that he requires moderate to maximal assist for transfers however. (3) Coronary artery disease Qualifiers: Coronary Disease-Associated Artery/Lesion type: [place] artery [place] vs. transplanted heart: [place] heart Associated angina: without angina Qualified Code(s): I25.10 - Atherosclerotic heart disease of [place] coronary artery without angina pectoris Current visit: No Status: Chronic He denies any chest discomfort. (4) Depression Qualifiers: Depression Type: major depressive disorder Major depression recurrence: recurrent Active/Remission status: in partial remission Qualified Code(s): F33.41 - Major depressive disorder, recurrent, in partial remission Current visit: No Status: Chronic Has fairly frequent angry outbursts and at times does not cooperate with therapy. He is reportedly having more "sundowners" syndrome and I will ask psychiatry to evaluate him in this regard to see if any medication changes might be appropriate. (5) Diabetes Qualifiers: Diabetes mellitus type: type 2 Diabetes mellitus complication status: with circulatory complication Diabetes mellitus complication detail: with other circulatory complications Diabetes mellitus alf insulin use: without alf use Qualified Code(s): E11.59 - Type 2 diabetes mellitus with other circulatory complications Current visit: No Status: Chronic His blood sugars are being monitored and reviewed. They are stable at this time. (6) Urinary incontinence Qualifiers: Urinary Incontinence type: urinary incontinence without sensory awareness Qualified Code(s): N39.42 - Incontinence without sensory awareness Current visit: Yes Status: Chronic (7) Postoperative anemia Current visit: Yes Status: Acute (8) Acute respiratory failure Qualifiers: Respiratory failure complication: hypoxia Qualified Code(s): J96.01 - Acute respiratory failure with hypoxia Current visit: Yes Status: Resolved Saturations with activity around 95% on room air. However he does get dyspneic with activity. Whether this is related to deconditioning or not is not clear. (9) Acute bronchospasm Current visit: Yes Status: Resolved (10) Dementia Qualifiers: Dementia type: vascular dementia Dementia behavioral disturbance: with behavioral disturbance Qualified Code(s): F01.51 - Vascular dementia with behavioral disturbance Current visit: Yes Status: Chronic According to his the patient has developed worsening memory loss over the past several months and years. He has worsening sundowner syndrome. The patient does display angry outbursts at times and refuses to cooperate with therapy. We will ask psychiatry to see if there is any medication changes that might be appropriate. DVT Prophylaxis: SCD's, Lovenox Resuscitation Status: Full Code - Course Hospital Course: Carrington Galaviz MD: 04/25/17 13:59 Tolerating therapy well. Chest exam shows some wheezes. Oxygen saturations are above 90% on room air however. We will check a chest x-ray, and initiate beta agonist therapy. Hemoglobin improved. Therefore we will start Lovenox for DVT prophylaxis. 04/29/17 10:36 Patient's somnolence and left shoulder pain are barriers to progress. He is progressing with therapy. Continue current plan. 04/30/17 09:57 Progress is slow related to his deconditioning as well as cognitive issues. Pain appears to be controlled Does get dyspneic with activity although saturations are in the mid 90s on room air. Worsening sundowners and angry outbursts noted. We will consult psychiatry. - Interventions to Obtain Goals PT Treatment Plan: Balance/Proprioception, Functional Activities, Gait Training , Patient/Family Education, Therapeutic Exercise OT Treatment Plan: ADL (Basic Care), Balance Training, Pt./Family Education Goals Progress/Modifications: Have discussed the case with the patient's . She states that she will be able to assist him with dressing etc. However he will need to have increased ability to ambulate etc.
--- NOTE | 2017-04-30 12:14 | IRU Team Meeting ---
IRU Team Meeting - Nursing Vital Signs: Vital Signs - 24 hr 04/29/17 13:49 04/29/17 15:06 04/29/17 19:42 Temperature 98.4 F 97.8 F Pulse Rate 67 72 Respiratory Rate 18 16 16 Blood Pressure 139/66 133/88 Pulse Oximetry 93 93 04/30/17 06:59 04/30/17 08:00 04/30/17 10:10 Temperature 98.2 F Pulse Rate 67 Respiratory Rate 24 18 Blood Pressure 103/54 Pulse Oximetry 96 93 04/30/17 11:11 Temperature Pulse Rate Respiratory Rate 20 Blood Pressure Pulse Oximetry 95 Current Medications: Acetaminophen (Tylenol) 500 mg PO Q4H PRN PRN Reason: Pain Last Admin: 04/30/17 08:52 Dose: 500 mg Albuterol/Ipratropium (Duoneb) 3 ml AEROSOL RTQID [facility] Last Admin: 04/29/17 19:24 Dose: Not Given Albuterol/Ipratropium (Duoneb) 3 ml AEROSOL Q6HR [facility] Last Admin: 04/30/17 11:14 Dose: 3 ml Aspirin (Ecotrin) 81 mg PO DAILY [facility] Last Admin: 04/30/17 08:52 Dose: 81 mg Carvedilol (Coreg) 6.25 mg PO BIDWM [facility] Last Admin: 04/30/17 08:52 Dose: 6.25 mg Clopidogrel Bisulfate (Plavix) 75 mg PO DAILY [facility] Last Admin: 04/30/17 08:52 Dose: 75 mg Enoxaparin Sodium (Lovenox) 40 mg SQ DAILY [facility] Last Admin: 04/30/17 08:52 Dose: 40 mg Escitalopram Oxalate (Lexapro) 20 mg PO DAILY [facility] Last Admin: 04/30/17 08:52 Dose: 20 mg Magnesium Hydroxide (Mom) 30 ml PO DAILY PRN PRN Reason: Constipation Last Admin: 04/30/17 11:05 Dose: 30 ml Metformin HCl (Glucophage) 1,000 mg PO BIDWM [facility] Last Admin: 04/30/17 08:52 Dose: 1,000 mg Naloxegol (Movantik) 25 mg PO ACB [facility] Last Admin: 04/30/17 06:24 Dose: 25 mg Oxybutynin Chloride (Ditropan Xl) 10 mg PO DAILY [facility] Last Admin: 04/30/17 08:52 Dose: 10 mg Polyethylene Glycol (Miralax) 17 gm PO DAILY [facility] Last Admin: 04/27/17 09:05 Dose: 17 gm Pravastatin Sodium (Pravachol) 40 mg PO [facility] Last Admin: 04/29/17 21:05 Dose: 40 mg Quetiapine Fumarate (Seroquel) 50 mg PO [facility] Last Admin: 04/29/17 21:05 Dose: 50 mg Ranitidine HCl (Zantac) 300 mg PO [facility] Last Admin: 04/29/17 21:04 Dose: 300 mg Sodium Chloride (Normal Saline) 500 ml IV PRN PRN Sodium Chloride (Iv Flush) 10 - 80 ml IVF PRN PRN PRN Reason: Flushing Last Admin: 04/25/17 14:40 Dose: 10 ml Sucralfate (Carafate) 1 gm PO [facility] Last Admin: 04/29/17 21:05 Dose: 1 gm Tramadol HCl (Ultram) 50 mg PO Q6H PRN PRN Reason: Pain Last Admin: 04/29/17 08:40 Dose: 50 mg Comments: He is having some sundowning and psychiatry is consulted. Had a spell of dyspnea and this responded to diuretic and breathing treatments. He is on ultram and tylenol prn for pain management for this reverse shoulder. notes chronic anger issues, progressive dementia. Today was very angry to staff and cursing. Constipation is still an issue. Hgb 9.3. Dietitian: 2000 consistent carb diet. BGM 98-124, on Metformin bid. Intake was down over the last 1 1/2 days. Confusion plays a role in his intake. Offered no sugar added Abebe Jasso and he accepted. - Physical Therapy Sit to Stand Chair Transfer Ability: Minimal Assistance Stand to Sit Chair Transfer Ability: Minimal Assistance Comments: Walking only 27 ft with CGA. Refuses car transfer. He is variable in his response and cooperating ability. Poor safety awareness. - Occupational Therapy Eating Ability: Modified Independent Upper Body Dressing Ability: Moderate Assistance Lower Body Dressing Ability: Maximal Assistance Lower Body Dressing Comment: He is max assist for toilet transfer. He is fluctuating on his ability. Progress is variable due to cooperation. - Care Plan Anticipated DC Destination: Home, Self Care Interventions/Goals: His progress is variable due to his confusion. customer operations manager has discussed with his . Plans are for him to go home with and grandson. They decline home health. requests outpt PT/OT. Barriers to discharge are his confusion and lack of cooperation. Goals: Safe dismissal and we recommend more assistance at home. Family training is recommended for dressing, etc. Reassess in one week.
--- NOTE | 2017-04-30 18:11 | Neuropsychiatric Consult ---
[facility] HPI Date: 04/30/17 Reason for Consultation: Agitation Start Time: 17:30 Stop Time: 18:00 History of Present Illness: HPI: 81 Y/O CM in rehab after shoulder surgery. Nursing reports pt's mood has been labile and he has had some increasing behaviors and confusion at night. On face to face the pt is pleasant and cooperative. He is oriented x 2. Believes he is in [place]. He states he feels his mood is stable but admits to some memory impairment and states he is some what frustrated by being in the hospital. He states he has been very active and independent all his life and feels that he is not able to do as much any more which is frustrating. He denies any S/I. STRESSORS: Pt states he does not have independence like he used to which is frustrating. PSYCH ROS: Pt denies feeling depressed although he reports he has been treated for depression in the past and is currently on lexapro. Pt states he does have some memory issues and is only oriented x 2. Nursing reports his mood has been very labile and he has had some increasing confusion at night. Denies hx of judith or psychosis. PAST PSYCH: Pt states he has been treated for depression in the past but is a poor historian and not able to give details. [facility] Patient Stated Medical History Cerebrovascular Accident Yes: TIA Dementia Yes Transient Ischemic Attacks ( Yes: Age 76 TIA) Hearing Loss Yes Coronary Artery Disease Yes Hypertension Yes Myocardial Infarction Yes: 2015, stent placed Pneumonia Yes Sleep Apnea Yes Diabetes Mellitus Type 2 Yes Constipation No Gastroesophageal Reflux Yes Disease Ulcer Yes Hx Incontinence Yes Anemia Yes Osteoarthritis Yes Anesthesia Reactions No Blood Transfusions No Chemotherapy No Malignant Hyperthermia No Other No Now No Clinic Medical History (Last Updated 04/30/17 @ 09:58 by Carrington Galaviz MD) Anxiety (Chronic Medical) Coronary artery disease (Chronic Medical) Depression (Chronic Medical) Diabetes (Chronic Medical) Heart attack (Chronic Medical) High blood pressure (Chronic Medical) High cholesterol (Chronic Medical) Osteoarthritis (Chronic Medical) 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 Rt VAIBHAV Family History: Family History (Last Reviewed 03/27/17 @ 10:05 by Mateo Xavier MD) Mother Arthritis Sister High blood pressure High cholesterol - Social History Substance use type: does not use Current residence: Apartment/Private Home Review of Systems - E[employer] Ears: Absent: ear discharge, ear pain Balance: Absent: vertigo Mouth/Throat: Absent: pain, sore throat, changes in swallowing - Cardiovascular Rhythm: Present: regular rhythm Vascular: Absent: intermittent claudication, pallor of an extermity, pedal edema Mental Status Exam Vitals: Last Vital Signs Temp 98.2 F 04/30/17 16:00 Pulse 73 04/30/17 16:00 Resp 18 04/30/17 16:41 BP 154/67 H 04/30/17 16:00 Pulse Ox 95 04/30/17 16:41 Height: 1.85 m Weight: 107.8 kg - Mental Status Exam Muscle Strength/Tone: Normal Dressing: Casual Grooming: Good Attitude: Cooperative Motor Activity: Normal Eye Contact: Fair Speech: Slowed Volume: Normal Rhythm: Appropriate Rhythm Orientation: Disoriented to place, Oriented to person, Oriented to time Mood: Neutral Affect: Relaxed Rate of Thoughts: Delayed Thought Organization: [place] Associations: Illogical Abstract Reasoning: Impaired, concrete Thought Content: Normal Perception/Psychotic: Perception Normal Fund of Knowledge: Poor fund of knowledge Memory: Poor-immediate Homicidal Ideation: None Insight: Fair Judgement: Fair Impulse Control: Poor - Laboratory Result Diagrams: 04/25/17 10:01 04/25/17 04:04 Laboratory Results - last 24 hr 04/29/17 04/30/17 04/30/17 19:45 06:18 11:40 Glucometer 170 109 103 04/30/17 17:08 Glucometer 101 Assessment and Plan (1) Major neurocognitive disorder due to Alzheimer's disease, possible Current visit: Yes Status: Acute (2) Delirium due to another medical condition Problem details: Rule out Current visit: Yes Status: Acute Continue medical management. Agree with use of Lexapro. Will continue Seroquel at this time but will monitor as it may make confusion slightly worse due to anticholinergic properties. Will order an EKG to check QT and if normal can order Haldol 0.5mg PO Q6 hours PRN for agitation due to delirium/ sundowning. Would consider starting Depakote 250mg PO BID if mood lability increases or is unmanageable.
[2017-04-30] MEDS: PRAVASTATIN 40 MG TABLET PO SCH (20:39)
[2017-04-30] MEDS: SUCRALFATE 1 GM TABLET PO SCH (20:39)
[2017-04-30] MEDS: RANITIDINE 300 MG TABLET PO SCH (20:39)
[2017-04-30] MEDS: QUETIAPINE 50 MG TABLET PO SCH (20:40)
[2017-05-01] MEDS: SUCRALFATE 1 GM TABLET PO SCH ×3 (00:08→23:51)
[2017-05-01] MEDS: PRAVASTATIN 40 MG TABLET PO SCH ×3 (00:08→23:52)
[2017-05-01] MEDS: QUETIAPINE 50 MG TABLET PO SCH ×3 (00:08→23:52)
[2017-05-01] MEDS: RANITIDINE 300 MG TABLET PO SCH ×3 (00:08→23:52)
[2017-05-01] MEDS: ALBUTEROL/IPRATROPIUM 2.5mg-0.5mg/3ml NEB AEROSOL SCH ×4 (05:19→20:59)
[2017-05-01] MEDS: NALOXEGOL 12.5 MG TABLET PO SCH (06:31)
[2017-05-01] MEDS ORDERED: BISACODYL 10 MG SUPPOSITORY RECTALLY PRN (07:20)
--- NOTE | 2017-05-01 07:58 | XRay Report ---
Indication: last BM unknown PROCEDURE: XR KUB: Encounter: Initial Comparison: April 17, 2010 Findings: Lung bases are clear. No gross free air on the supine views. Gas throughout small and large bowel. Moderate stool in the right colon. Prior vertebroplasties in the upper lumbar spine. Bowel gas pattern is nonobstructive. Severe degenerative change in the left hip. Right hip replacement. Impression: Nonobstructive bowel gas pattern. Possible mild ileus. .
[2017-05-01] MEDS: TRAMADOL 50 MG TABLET PO PRN (08:48)
[2017-05-01] MEDS: CARVEDILOL 6.25 MG TABLET PO SCH ×2 (08:48→17:43)
[2017-05-01] MEDS: CLOPIDOGREL 75 MG TABLET PO SCH (08:48)
[2017-05-01] MEDS: ESCITALOPRAM 20 MG TABLET PO SCH (08:48)
[2017-05-01] MEDS: ASPIRIN *EC* 81 MG TABLET PO SCH (08:48)
[2017-05-01] MEDS: METFORMIN 1,000 MG TABLET PO SCH ×2 (08:49→17:43)
[2017-05-01] MEDS: ENOXAPARIN 40 MG/0.4 ML INJECTION SQ SCH (08:50)
--- NOTE | 2017-05-01 11:14 | IRU Progress Note ---
- Subjective/Serverity of Illness Patient was evaluated in his room on the acute rehabilitation unit. He states that he is advancing with therapy. He would like to go home. He wondered when that could happen and I told him we were planning to continue to work with him for the time being. He is increasing his ambulatory ability although does have reduced endurance. We appreciate the assistance of Dr. Bennett regarding psychiatry. He feels as though he does have some Alzheimer's dementia with behavior issues and suggested the possibility of Haldol if the QT interval is not prolonged. He made other recommendations as well in the future if needed including Depakote. The patient has a Herman catheter in place which was ordered by Dr. Lewis during a time of diuresis. He does have chronic urinary incontinence however. At this time we will remove the catheter as he does not appear to have evidence of retention. The urine appears to be clear. Exam Vital Signs: Temperature 98.2 F 05/01/17 08:00 Pulse Rate 57 L 05/01/17 08:00 Respiratory Rate 20 05/01/17 08:09 Blood Pressure 124/66 05/01/17 08:00 Pulse Oximetry 95 05/01/17 08:09 Oxygen Delivery Method Room Air Oxygen Flow Rate 1 Height: 1.85 m Weight: 103.7 kg Body Mass Index: 31.1 - Constitutional Present: no acute distress Comments: The patient is awake, alert and oriented at least to person and in no acute distress. Pupils are equal. The neck is supple. Chest: Clear to auscultation bilaterally. Cor: RR with no sunny, click nor murmur Abd: soft with normo-active bowel sounds. There are no masses, no tenderness and no guarding. Extremities: No edema is noted. No cyanosis is present. Left arm in a sling. - Routine HEENT Exam Head: Present: normocephalic Eye: Present: EOMI ENT: Present: mucous membranes moist - Routine Neck Exam Present: supple, full ROM - Routine Respiratory Exam Present: CTA bilaterally - Routine Cardiovascular Exam Present: RRR, S1, S2, no murmur - Routine Abdominal Exam Present: soft, normoactive bowel sounds, non distended, non tender - Routine Extremities Exam Present: no edema. Absent: cyanosis - Routine Skin Exam Present: intact - Routine Neurological Exam Present: alert, CN II-XII intact - Routine Psychiatric Exam Present: depressed, anxious. 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 His cooperation is variable. (3) Coronary artery disease Qualifiers: Coronary Disease-Associated Artery/Lesion type: [place] artery [place] vs. transplanted heart: [place] heart Associated angina: without angina Qualified Code(s): I25.10 - Atherosclerotic heart disease of [place] coronary artery without angina pectoris Current visit: No Status: Chronic Denies any chest pain. (4) Depression Qualifiers: Depression Type: major depressive disorder Major depression recurrence: recurrent Active/Remission status: in partial remission Qualified Code(s): F33.41 - Major depressive disorder, recurrent, in partial remission Current visit: No Status: Chronic Appreciate input of Dr. Bennett. 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 I had considered removing it. However Dr. Lewis has indicated he would like to leave it in for the time being and we will do that. (7) Postoperative anemia Current visit: Yes Status: Acute (8) Acute respiratory failure Qualifiers: Respiratory failure complication: hypoxia Qualified Code(s): J96.01 - Acute respiratory failure with hypoxia Current visit: Yes Status: Resolved (9) Acute bronchospasm Current visit: Yes Status: Resolved (10) Dementia Qualifiers: Dementia type: vascular dementia Dementia behavioral disturbance: with behavioral disturbance Qualified Code(s): F01.51 - Vascular dementia with behavioral disturbance Current visit: Yes Status: Chronic Appreciate Dr. Bennett's input. DVT Prophylaxis: SCD's, Lovenox Resuscitation Status: Full Code - Course Hospital Course: Carrington Galaviz MD: 04/25/17 13:59 Tolerating therapy well. Chest exam shows some wheezes. Oxygen saturations are above 90% on room air however. We will check a chest x-ray, and initiate beta agonist therapy. Hemoglobin improved. Therefore we will start Lovenox for DVT prophylaxis. 04/29/17 10:36 Patient's somnolence and left shoulder pain are barriers to progress. He is progressing with therapy. Continue current plan. 04/30/17 09:57 Progress is slow related to his deconditioning as well as cognitive issues. Pain appears to be controlled Does get dyspneic with activity although saturations are in the mid 90s on room air. Worsening sundowners and angry outbursts noted. We will consult psychiatry. 05/01/17 11:20 Patient's progress is limited by his cooperation at times. Dr. Bennett has evaluated patient and we appreciate his input Continue working with patient over the next several days Dr. Lewis would like to leave the catheter in for now. - Interventions to Obtain Goals PT Treatment Plan: Balance/Proprioception, Functional Activities, Gait Training , Patient/Family Education, Therapeutic Exercise OT Treatment Plan: ADL (Basic Care), Balance Training, Pt./Family Education Goals Progress/Modifications: Patient is making progress but it is slow related to his cooperation ability or not. Appreciate input of Dr. Bennett.
[2017-05-01] MEDS: ACETAMINOPHEN 500 MG TABLET PO PRN (15:29)
[2017-05-02] MEDS: TRAMADOL 50 MG TABLET PO PRN ×3 (02:46→21:29)
[2017-05-02] MEDS: NALOXEGOL 12.5 MG TABLET PO SCH (05:55)
[2017-05-02] MEDS: ALBUTEROL/IPRATROPIUM 2.5mg-0.5mg/3ml NEB AEROSOL SCH ×4 (07:25→20:21)
[2017-05-02] MEDS: ENOXAPARIN 40 MG/0.4 ML INJECTION SQ SCH (08:46)
[2017-05-02] MEDS: ASPIRIN *EC* 81 MG TABLET PO SCH (08:46)
[2017-05-02] MEDS: CLOPIDOGREL 75 MG TABLET PO SCH (08:46)
[2017-05-02] MEDS: METFORMIN 1,000 MG TABLET PO SCH ×2 (08:46→17:53)
[2017-05-02] MEDS: ESCITALOPRAM 20 MG TABLET PO SCH (08:46)
[2017-05-02] MEDS: CARVEDILOL 6.25 MG TABLET PO SCH ×2 (08:46→17:52)
[2017-05-02] MEDS ORDERED: FALL RISK - PHARMACY CONSULT XX PRN (09:45)
[2017-05-02] MEDS: ACETAMINOPHEN 500 MG TABLET PO PRN (10:30)
[2017-05-02] MEDS: PRAVASTATIN 40 MG TABLET PO SCH (21:29)
[2017-05-02] MEDS: QUETIAPINE 50 MG TABLET PO SCH (21:29)
[2017-05-02] MEDS: RANITIDINE 300 MG TABLET PO SCH (21:29)
[2017-05-02] MEDS: SUCRALFATE 1 GM TABLET PO SCH (21:29)
[2017-05-03] MEDS: NALOXEGOL 12.5 MG TABLET PO SCH (06:29)
[2017-05-03] MEDS: CARVEDILOL 6.25 MG TABLET PO SCH ×2 (09:01→17:41)
[2017-05-03] MEDS: ESCITALOPRAM 20 MG TABLET PO SCH (09:01)
[2017-05-03] MEDS: METFORMIN 1,000 MG TABLET PO SCH ×2 (09:01→17:40)
[2017-05-03] MEDS: ASPIRIN *EC* 81 MG TABLET PO SCH (09:01)
[2017-05-03] MEDS: CLOPIDOGREL 75 MG TABLET PO SCH (09:01)
[2017-05-03] MEDS: ALBUTEROL/IPRATROPIUM 2.5mg-0.5mg/3ml NEB AEROSOL SCH ×4 (09:02→20:10)
[2017-05-03] MEDS: ENOXAPARIN 40 MG/0.4 ML INJECTION SQ SCH (09:02)
--- NOTE | 2017-05-03 11:17 | IRU Progress Note ---
- Subjective/Serverity of Illness Mr. Mahajan was evaluated while in his room. He seems to be awake and alert and oriented. Seems to be cooperative today. Continues to have slow progress regarding his ambulatory ability. His transfers are certainly improving. However ambulatory safety and endurance is low. Left shoulder pain is controlled he states. States that he has a good appetite. Denies any GI symptoms at present. He continues to have the Herman catheter in place. This is per Dr. Lewis and I will defer to his judgment as far as removal. Patient was asking when he can get it out. Exam Vital Signs: Temperature 98.1 F 05/03/17 08:00 Pulse Rate 64 05/03/17 08:00 Respiratory Rate 16 05/03/17 09:03 Blood Pressure 134/66 05/03/17 08:00 Pulse Oximetry 97 05/03/17 08:00 Oxygen Delivery Method Room Air Oxygen Flow Rate 1 Height: 1.85 m Weight: 104.3 kg Body Mass Index: 31.1 - Constitutional Present: no acute distress Comments: The patient is awake, alert and oriented and in no acute distress. Pupils are equal. The neck is supple. Chest: Clear to auscultation bilaterally. Cor: RR with no sunny, click nor murmur Abd: soft with normo-active bowel sounds. There are no masses, no tenderness and no guarding. Extremities: No edema is noted. Left shoulder appears to be stable although it was not directly evaluated today. - Routine HEENT Exam Head: Present: normocephalic Eye: Present: EOMI ENT: Present: mucous membranes moist - Routine Neck Exam Present: supple, full ROM - Routine Respiratory Exam Present: accessory muscle use, CTA bilaterally - Routine Cardiovascular Exam Present: RRR, S1, S2, no murmur - Routine Abdominal Exam Present: soft, normoactive bowel sounds, non distended, non tender - Routine Extremities Exam Present: no edema, non tender. Absent: cyanosis - Routine Skin Exam Present: intact. Absent: erythema - Routine Neurological Exam Present: alert, oriented X3, CN II-XII intact - Routine Psychiatric Exam Present: depressed, anxious. 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 Barriers to progress continue to be cooperation as well as endurance. (3) Coronary artery disease Qualifiers: Coronary Disease-Associated Artery/Lesion type: [place] artery [place] vs. transplanted heart: [place] heart Associated angina: without angina Qualified Code(s): I25.10 - Atherosclerotic heart disease of [place] coronary artery without angina pectoris Current visit: No Status: Chronic He denies any chest pain or shortness of breath. (4) Depression Qualifiers: Depression Type: major depressive disorder Major depression recurrence: recurrent Active/Remission status: in partial remission Qualified Code(s): F33.41 - Major depressive disorder, recurrent, in partial remission Current visit: No Status: Chronic Appreciate input of psychiatry. Seems to be more cooperative at present. (5) Diabetes Qualifiers: Diabetes mellitus type: type 2 Diabetes mellitus complication status: with circulatory complication Diabetes mellitus complication detail: with other circulatory complications Diabetes mellitus residential insulin use: without residential use Qualified Code(s): E11.59 - Type 2 diabetes mellitus with other circulatory complications Current visit: No Status: Chronic (6) Urinary incontinence Qualifiers: Urinary Incontinence type: urinary incontinence without sensory awareness Qualified Code(s): N39.42 - Incontinence without sensory awareness Current visit: Yes Status: Chronic Herman catheter remains in place. Removal of to Dr. Lewis. (7) Postoperative anemia Current visit: Yes Status: Acute (8) Acute respiratory failure Qualifiers: Respiratory failure complication: hypoxia Qualified Code(s): J96.01 - Acute respiratory failure with hypoxia Current visit: Yes Status: Resolved (9) Acute bronchospasm Current visit: Yes Status: Resolved (10) Dementia Qualifiers: Dementia type: vascular dementia Dementia behavioral disturbance: with behavioral disturbance Qualified Code(s): F01.51 - Vascular dementia with behavioral disturbance Current visit: Yes Status: Chronic DVT Prophylaxis: SCD's, Lovenox Resuscitation Status: Full Code - Course Hospital Course: Carrington Galaviz MD: 04/25/17 13:59 Tolerating therapy well. Chest exam shows some wheezes. Oxygen saturations are above 90% on room air however. We will check a chest x-ray, and initiate beta agonist therapy. Hemoglobin improved. Therefore we will start Lovenox for DVT prophylaxis. 04/29/17 10:36 Patient's somnolence and left shoulder pain are barriers to progress. He is progressing with therapy. Continue current plan. 04/30/17 09:57 Progress is slow related to his deconditioning as well as cognitive issues. Pain appears to be controlled Does get dyspneic with activity although saturations are in the mid 90s on room air. Worsening sundowners and angry outbursts noted. We will consult psychiatry. 05/01/17 11:20 Patient's progress is limited by his cooperation at times. Dr. Peters has evaluated patient and we appreciate his input Continue working with patient over the next several days Dr. Lewis would like to leave the catheter in for now. 05/03/17 11:18 Seems to be more cooperative at present. Chest exam is clear Herman catheter remains in place Slow progress but he is certainly improving regarding transfers area and Safety concerns remain along with endurance. - Interventions to Obtain Goals PT Treatment Plan: Balance/Proprioception, Functional Activities, Gait Training , Patient/Family Education, Therapeutic Exercise OT Treatment Plan: ADL (Basic Care), Balance Training, Pt./Family Education
[2017-05-03] MEDS: RANITIDINE 300 MG TABLET PO SCH (21:06)
[2017-05-03] MEDS: SUCRALFATE 1 GM TABLET PO SCH (21:06)
[2017-05-03] MEDS: PRAVASTATIN 40 MG TABLET PO SCH (21:06)
[2017-05-03] MEDS: QUETIAPINE 50 MG TABLET PO SCH (21:06)
[2017-05-03] MEDS: TRAMADOL 50 MG TABLET PO PRN (21:06)
[2017-05-04] MEDS: NALOXEGOL 12.5 MG TABLET PO SCH (06:11)
[2017-05-04] MEDS: CARVEDILOL 6.25 MG TABLET PO SCH ×2 (08:36→17:33)
[2017-05-04] MEDS: METFORMIN 1,000 MG TABLET PO SCH ×2 (08:37→17:34)
[2017-05-04] MEDS: ENOXAPARIN 40 MG/0.4 ML INJECTION SQ SCH (08:38)
[2017-05-04] MEDS: ESCITALOPRAM 20 MG TABLET PO SCH (08:38)
[2017-05-04] MEDS: ASPIRIN *EC* 81 MG TABLET PO SCH (08:38)
[2017-05-04] MEDS: CLOPIDOGREL 75 MG TABLET PO SCH (08:39)
[2017-05-04] MEDS: ALBUTEROL/IPRATROPIUM 2.5mg-0.5mg/3ml NEB AEROSOL SCH ×5 (09:42→20:25)
[2017-05-04] MEDS ORDERED: FALL RISK - PHARMACY CONSULT XX ONE (12:26)
[2017-05-04] MEDS: PRAVASTATIN 40 MG TABLET PO SCH (21:33)
[2017-05-04] MEDS: SUCRALFATE 1 GM TABLET PO SCH (21:33)
[2017-05-04] MEDS: QUETIAPINE 50 MG TABLET PO SCH (21:33)
[2017-05-04] MEDS: RANITIDINE 300 MG TABLET PO SCH (21:34)
[2017-05-04] MEDS: TRAMADOL 50 MG TABLET PO PRN (21:34)
[2017-05-05] MEDS: NALOXEGOL 12.5 MG TABLET PO SCH ×2 (04:52→06:33)
[2017-05-05] MEDS: ALBUTEROL/IPRATROPIUM 2.5mg-0.5mg/3ml NEB AEROSOL SCH ×3 (07:26→20:21)
[2017-05-05] MEDS: ENOXAPARIN 40 MG/0.4 ML INJECTION SQ SCH (08:46)
[2017-05-05] MEDS: TRAMADOL 50 MG TABLET PO PRN (08:47)
[2017-05-05] MEDS: CLOPIDOGREL 75 MG TABLET PO SCH (08:47)
[2017-05-05] MEDS: CARVEDILOL 6.25 MG TABLET PO SCH ×2 (08:47→16:58)
[2017-05-05] MEDS: ESCITALOPRAM 20 MG TABLET PO SCH (08:47)
[2017-05-05] MEDS: ASPIRIN *EC* 81 MG TABLET PO SCH (08:47)
[2017-05-05] MEDS: METFORMIN 1,000 MG TABLET PO SCH ×2 (08:47→16:58)
[2017-05-05] MEDS: ACETAMINOPHEN 500 MG TABLET PO PRN (16:58)
[2017-05-05] MEDS: RANITIDINE 300 MG TABLET PO SCH (21:06)
[2017-05-05] MEDS: SUCRALFATE 1 GM TABLET PO SCH (21:06)
[2017-05-05] MEDS: QUETIAPINE 50 MG TABLET PO SCH (21:06)
[2017-05-05] MEDS: PRAVASTATIN 40 MG TABLET PO SCH (21:06)
[2017-05-06] MEDS: NALOXEGOL 12.5 MG TABLET PO SCH (05:50)
[2017-05-06] MEDS: CARVEDILOL 6.25 MG TABLET PO SCH (08:07)
[2017-05-06] MEDS: ESCITALOPRAM 20 MG TABLET PO SCH (08:08)
[2017-05-06] MEDS: METFORMIN 1,000 MG TABLET PO SCH (08:08)
[2017-05-06] MEDS: CLOPIDOGREL 75 MG TABLET PO SCH (08:08)
[2017-05-06] MEDS: ASPIRIN *EC* 81 MG TABLET PO SCH (08:08)
[2017-05-06] MEDS: ENOXAPARIN 40 MG/0.4 ML INJECTION SQ SCH (08:09)
--- NOTE | 2017-05-06 11:07 | IRU Progress Note ---
- Subjective/Serverity of Illness Patient is anxious to get home. His pain is fairly well controlled with tramadol , used as needed. Appetite is fair. He is walking between 40 and 60 feet. He is using a large base quad cane and needs a prescription for that. He states that his breathing is doing well. Denies any cough or sputum and his lungs remain clear. His is with him this morning in the room and we discussed his going home. She is comfortable taking him home and will return this afternoon to do that. I will discuss his home medications with his personal physician Dr. Lewis. Exam Vital Signs: Temperature 98.2 F 05/06/17 07:00 Pulse Rate 65 05/06/17 07:00 Respiratory Rate 18 05/06/17 07:05 Blood Pressure 123/59 05/06/17 07:00 Pulse Oximetry 96 05/06/17 07:05 Oxygen Delivery Method Room Air Oxygen Flow Rate 1 Height: 1.85 m Weight: 104.3 kg Body Mass Index: 31.1 - Constitutional Present: no acute distress Comments: The patient is awake, alert and oriented and in no acute distress. Pupils are equal. The neck is supple. Chest: Clear to auscultation bilaterally. Cor: RR with no sunny, click nor murmur Abd: soft with normo-active bowel sounds. There are no masses, no tenderness and no guarding. Extremities: No edema is noted. - Routine HEENT Exam Head: Present: normocephalic Eye: Present: EOMI ENT: Present: mucous membranes moist - Routine Neck Exam Present: supple, full ROM - Routine Respiratory Exam Present: CTA bilaterally - Routine Cardiovascular Exam Present: RRR, S1, S2, no murmur - Routine Abdominal Exam Present: soft, normoactive bowel sounds, non distended, non tender - Routine Neurological Exam Present: alert, oriented X3, CN II-XII intact - Routine Psychiatric Exam Present: normal affect, cooperative. Absent: good insight, good judgment Results IRU - Labs Labs: Reviewed labs done a couple days ago. Hemoglobin 9.4. 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 He is aware of how to dress safely. He will use a quad cane for the right hand. He is limited on his ambulatory ability predominantly due to right hip osteoarthritis. Pain is controlled with Ultram. (3) Coronary artery disease Qualifiers: Coronary Disease-Associated Artery/Lesion type: [place] artery [place] vs. transplanted heart: [place] heart Associated angina: without angina Qualified Code(s): I25.10 - Atherosclerotic heart disease of [place] coronary artery without angina pectoris Current visit: No Status: Chronic Denies any chest pain or difficulty breathing at present. (4) Depression Qualifiers: Depression Type: major depressive disorder Major depression recurrence: recurrent Active/Remission status: in partial remission Qualified Code(s): F33.41 - Major depressive disorder, recurrent, in partial remission Current visit: No Status: Chronic (5) Diabetes Qualifiers: Diabetes mellitus type: type 2 Diabetes mellitus complication status: with circulatory complication Diabetes mellitus complication detail: with other circulatory complications Diabetes mellitus nursing home insulin use: without nursing home use Qualified Code(s): E11.59 - Type 2 diabetes mellitus with other circulatory complications Current visit: No Status: Chronic Sugars seem to be fairly well controlled. (6) Urinary incontinence Qualifiers: Urinary Incontinence type: urinary incontinence without sensory awareness Qualified Code(s): N39.42 - Incontinence without sensory awareness Current visit: Yes Status: Chronic I will discuss the case with his personal physician regarding removing the Herman catheter. (7) Postoperative anemia Current visit: Yes Status: Acute (8) Acute respiratory failure Qualifiers: Respiratory failure complication: hypoxia Qualified Code(s): J96.01 - Acute respiratory failure with hypoxia Current visit: Yes Status: Resolved (9) Acute bronchospasm Current visit: Yes Status: Resolved (10) Dementia Qualifiers: Dementia type: vascular dementia Dementia behavioral disturbance: with behavioral disturbance Qualified Code(s): F01.51 - Vascular dementia with behavioral disturbance Current visit: Yes Status: Chronic DVT Prophylaxis: SCD's, Lovenox Resuscitation Status: Full Code - Course Hospital Course: Carrington Galaviz MD: 04/25/17 13:59 Tolerating therapy well. Chest exam shows some wheezes. Oxygen saturations are above 90% on room air however. We will check a chest x-ray, and initiate beta agonist therapy. Hemoglobin improved. Therefore we will start Lovenox for DVT prophylaxis. 04/29/17 10:36 Patient's somnolence and left shoulder pain are barriers to progress. He is progressing with therapy. Continue current plan. 04/30/17 09:57 Progress is slow related to his deconditioning as well as cognitive issues. Pain appears to be controlled Does get dyspneic with activity although saturations are in the mid 90s on room air. Worsening sundowners and angry outbursts noted. We will consult psychiatry. 05/01/17 11:20 Patient's progress is limited by his cooperation at times. Dr. Peters has evaluated patient and we appreciate his input Continue working with patient over the next several days Dr. Lewis would like to leave the catheter in for now. 05/03/17 11:18 Seems to be more cooperative at present. Chest exam is clear Herman catheter remains in place Slow progress but he is certainly improving regarding transfers area and Safety concerns remain along with endurance. 05/06/17 11:08 Patient has progressed with physical therapy and occupational therapy. He is able to ambulate between 40 and 80 feet. Ambulatory ability is limited predominantly by right hip osteoarthritis. He has learned how to safely dress and can transfer with only standby assistance. Discussed case with the patient's and she is comfortable taking him home this afternoon. I will discuss the case with his personal physician regarding home medications. - Interventions to Obtain Goals PT Treatment Plan: Balance/Proprioception, Functional Activities, Gait Training , Patient/Family Education, Therapeutic Exercise OT Treatment Plan: ADL (Basic Care), Balance Training, Pt./Family Education
--- NOTE | 2017-05-06 11:17 | Discharge Instructions ---
Discharge Plan - Med Rec/Dispo Referrals/Follow Up: Filiberto Zarate PA [Physician Field Support Technician] - (AUTUMN Coley on 05/20/17 at 1:30 pm for Post-Op follow-up. [phone]. [address] [place] [address]) Jere Lewis, [Family Provider] - Additional Instructions: Please make appt to see Dr. Lewis in 10-14 days. Please make appt to see Dr. Xavier in 10-14 days Prescriptions: New Bisacodyl Supp [Dulcolax] 10 mg RECTALLY DAILY PRN supp PRN Reason: Constipation Milk of Magnesia [Mom] 30 ml PO DAILY PRN udc PRN Reason: Constipation Tramadol [Ultram] 50 mg PO Q6H PRN #30 tablet PRN Reason: Pain Quetiapine [Seroquel] 50 mg PO HS #30 tablet Continue Pravastatin Sodium [Pravachol] 40 mg PO HS #0 Sucralfate 1 gm PO HS #0 Metformin HCl 1,000 mg PO BID #0 Carvedilol 6.25 mg PO BID #0 Aspirin *EC* [Ecotrin] 1 tab PO DAILY Acetaminophen [Acetaminophen Extra Strength] 500 mg PO Q4HPRN PRN PRN Reason: Pain raNITIdine HCl [Ranitidine HCl] 300 mg PO HS #0 Clopidogrel Bisulfate [Plavix] 75 mg PO DAILY #0 Escitalopram Oxalate 20 mg PO DAILY #0 Oxybutynin Chloride [Ditropan Xl] 10 mg PO DAILY PEG 3350 17gm PACKET [Miralax] 17 gm PO DAILY packet Discontinued Quetiapine Fumarate 50 mg PO HS #0 Tramadol [Ultram] 50 - 100 mg PO Q6H PRN tablet PRN Reason: Pain Discharge Instructions/Outpatient Orders: Final Provider Discharge Instructions Location: Determined By Patient - Disposition 01 Discharged Home, Self-Care
--- NOTE | 2017-05-06 11:33 | Discharge Summary ---
Discharge Information Date of admission: 04/24/17 14:58 Anticipated date of discharge: 05/06/17 Attending Physician: Carrington Galaviz MD Primary care physician: Jere Lewis DO Consults: 04/24/17 16:04 Physician Consult [CONS] Routine Consulting Provider: Jere Lewis Reason For Exam: Medical Management Ordering Provider has Notified Investigation Officer: No 04/30/17 09:58 Physician Consult [CONS] Routine Consulting Provider: Lc Bennett Reason For Exam: "Sundowners", dementia, angry outbursts Ordering Provider has Notified Investigation Officer: No - Discharge Diagnosis Discharge Diagnosis: 1. s/p left reverse shoulder procedure 2. DJD left shoulder 3. DJD right hip 4. Dementia 5. ASHD 6. Acute respiratory failure, hypoxemic 7. Acute blood loss anemia 8. DM type II, without long-term use of insulin - Laboratory Labs: 05/04/17 04:26 05/04/17 04:26 History of Present Illness HPI: 05/06/17 11:31 Mr. Mahajan was hospitalized by Dr. Xavier, orthopedist, for severe pain in the left shoulder. Patient underwent reverse total shoulder procedure by Dr. Xavier on the acute inpatient unit. He tolerated the procedure well. However he did have some transient confusion in the postoperative timeframe. In addition he did develop acute hypoxemic respiratory failure resulting in the need for oxygen supplementation. Prior to admission to the hospital he had been fairly independent at home. He had been using a walker at home. After the surgery however he cannot use the left arm because of the recent procedure and for that reason required further training/retraining regarding transfers and ambulation and safety in dressing and mobility. He was felt to be a good candidate for acute rehabilitation. Hospital Course This is a general summary of the patient's hospital course. For more details refer to the complete medical record. Patient underwent left reverse total shoulder procedure by Dr. Xavier on the inpatient unit. Postoperatively he required oxygen supplementation for acute respiratory failure. He was transferred to the inpatient rehabilitation unit. Patient received occupational therapy and physical therapy at least 3 hours daily, 5 days weekly. He required medical management for his respiratory failure, diabetes, fluid excess as well as his dementia and delirium by a physician at least 3 days weekly and was seen 4 days weekly for this. The patient did develop acute blood loss anemia and he was given packed red blood cells. He subsequently developed worsening respiratory symptoms in terms of wheezing and shortness of breath. He required oxygen supplementation and diuresis. A Heramn catheter was placed. He was given breathing treatments as well in the form of DuoNeb. He improved with regard to this treatment. The patient's blood sugars were monitored frequently and his diabetes was felt to be reasonably well controlled. He did have angry outbursts. He was seen in consultation by psychiatry. His Seroquel was increased to 50 mg daily. Subsequently he did improve with regard to physical therapy and occupational therapy. His transfers were with standby assistance. Initially he was transferring with maximum assistance with physical therapy and this improved to contact-guard to standby assistance. His ambulatory ability improved as well and is mainly limited by pain in the right hip. He was instructed on use of a wide based quad cane and was able to utilize this well. His ambulatory distance improved up to 40 feet and sometimes further. His was present for several physical therapy and occupational therapy interactions. She felt comfortable taking him home today. The Herman catheter was removed on the day of dismissal. Dismissal medications are as noted in the chart. At the time of dismissal he is able to eat and drink adequately. His bowels are moving. He is more cooperative. He will follow-up with Dr. Lewis in 10-[address] Xavier or Filiberto Zarate at about the same time frame. (Total time spent with interviewing and examining the patient, discussing the case with the patient's and physical therapy, discussing the case with his personal physician, preparing discharge records etc. was from 11:05 AM until 11: 40 AM - 35 minutes). Discharge Plan - Med Rec/Dispo Referrals/Follow Up: Filiberto Zarate PA [Physician Poly Area Supervisor] - (AUTUMN Coley on 05/20/17 at 1:30 pm for Post-Op follow-up. [phone]. [address] [place] [address]) Jere Lewis DO [Family Provider] - Additional Instructions: Please make appt to see Dr. Lewis in 10-14 days. Please make appt to see Dr. Xavier in 10-14 days Prescriptions: New Bisacodyl Supp [Dulcolax] 10 mg RECTALLY DAILY PRN supp PRN Reason: Constipation Milk of Magnesia [Mom] 30 ml PO DAILY PRN udc PRN Reason: Constipation Tramadol [Ultram] 50 mg PO Q6H PRN #30 tablet PRN Reason: Pain Quetiapine [Seroquel] 50 mg PO HS #30 tablet Continue Pravastatin Sodium [Pravachol] 40 mg PO HS #0 Sucralfate 1 gm PO HS #0 Metformin HCl 1,000 mg PO BID #0 Carvedilol 6.25 mg PO BID #0 Aspirin *EC* [Ecotrin] 1 tab PO DAILY Acetaminophen [Acetaminophen Extra Strength] 500 mg PO Q4HPRN PRN PRN Reason: Pain raNITIdine HCl [Ranitidine HCl] 300 mg PO HS #0 Clopidogrel Bisulfate [Plavix] 75 mg PO DAILY #0 Escitalopram Oxalate 20 mg PO DAILY #0 Oxybutynin Chloride [Ditropan Xl] 10 mg PO DAILY PEG 3350 17gm PACKET [Miralax] 17 gm PO DAILY packet Discontinued Quetiapine Fumarate 50 mg PO HS #0 Tramadol [Ultram] 50 - 100 mg PO Q6H PRN tablet PRN Reason: Pain Discharge Instructions/Outpatient Orders: Final Provider Discharge Instructions Location: Determined By Patient - Disposition 01 Discharged Home, Self-Care
[2017-05-06] MEDS: ALBUTEROL/IPRATROPIUM 2.5mg-0.5mg/3ml NEB AEROSOL SCH ×3 (13:47→17:06)
[2017-05-06 15:46] VITALS: BP 148/59; PULSE 77; RESP 16; TEMP 98.1; O2SAT 97
== END 2017-05-06 16:05 | disposition home or self-care (01) | DRG 559 ==
PROVIDERS: ADMIT Internal Medicine; ATTEND Internal Medicine

== ENCOUNTER 2018-02-04 10:23 | Inpatient (IN) ==
--- NOTE | 2018-02-04 10:49 | Emergency Department Report ---
General Adult HPI - General Chief complaint: Extremity Problem,Nontraumatic Stated complaint: Hip out of place Time Seen by Provider: 02/04/18 10:35 Source: patient, family Mode of arrival: wheelchair Limitations: no limitations - History of Present Illness HPI narrative: 82-year-old male presents to the emergency department with the chief complaints of a possible dislocation of his right hip. Patient was at home when he noted onset of symptoms at approximately 7:00 this morning while getting up off the commode. Patient notes a moderate dull discomfort at site of possible dislocation. No radiation. He states he is unable to bear weight on the affected extremity. He denies striking his head, loss of consciousness, or neck pain. He denies any other injury. No other complaints or associated symptoms. He was at home when his symptoms began. Symptoms have been persistent in nature since onset. - Related Data Home Medications Medication Instructions Recorded Confirmed raNITIdine HCl [Ranitidine HCl] 300 mg PO HS #0 05/04/10 02/04/18 Metformin HCl 1,000 mg PO BID #0 03/28/16 02/04/18 Carvedilol 6.25 mg PO BID #0 11/11/16 02/04/18 Aspirin *EC* [Ecotrin] 81 mg PO DAILY 03/27/17 02/04/18 Oxybutynin Chloride [Ditropan Xl] 10 mg PO DAILY 04/22/17 02/04/18 Clopidogrel Bisulfate [Clopidogrel] 75 mg PO DAILY 02/04/18 02/04/18 Escitalopram [Lexapro] 20 mg PO DAILY 02/04/18 02/04/18 Naproxen Sodium [Aleve] 220 mg PO HS 02/04/18 02/04/18 Sucralfate [Carafate] 1 gm PO HS 02/04/18 02/04/18 Previous Rx's Medication Instructions Recorded Quetiapine [Seroquel] 50 mg PO HS #30 tab 05/06/17 Acetaminophen [Tylenol] 500 - 1,000 mg PO Q8H PRN #100 tab 02/04/18 Allergies Allergy/AdvReac Type Severity Reaction Status Date / Time hydrocodone AdvReac Unknown Confusion Verified 02/04/18 11:06 oxycodone AdvReac Unknown Confusion Verified 02/04/18 11:06 Review of Systems Constitutional: Denies: fever, chills Eyes: Denies: eye pain, vision change ENT: Denies: ear pain, throat pain Cardiovascular: Denies: chest pain, palpitations Respiratory: Denies: cough, dyspnea Gastrointestinal: Denies: abdominal pain, nausea, vomiting, diarrhea Genitourinary: Denies: urgency, dysuria Musculoskeletal: Reports: arthralgia. Denies: back pain Integumentary: Denies: erythema, rash Neurological: Denies: headache, numbness, paresthesias Psychiatric: Denies: anxiety, depression Endocrine: Denies: polydipsia, polyuria Hematological/Lymphatic: Denies: easy bruising, lymphadenopathy Allergic/Immunologic: Denies: facial swelling, urticaria PFSH Patient Stated Medical History Cerebrovascular Accident Yes: TIA Dementia Yes Transient Ischemic Attacks ( Yes: Age 76 TIA) Hearing Loss Yes: wears hearing aids Coronary Artery Disease Yes: s/p stent in 2014 Hypertension Yes Myocardial Infarction Yes: 2014, stent placed Valvular Heart Disease Yes Chronic Obstructive Pulmonary Yes: long history of tobacco abuse Disease (COPD) Pneumonia Yes Sleep Apnea Yes: cpap Diabetes Mellitus Type 2 Yes Constipation No Gastroesophageal Reflux Yes Disease Ulcer Yes Hx Incontinence Yes Anemia Yes Osteoarthritis Yes Other Musculoskeletal Yes: history of dimentia Anesthesia Reactions No Blood Transfusions No Chemotherapy No Malignant Hyperthermia No Other No Now No Clinic Medical History (Last Reviewed 08/13/17 @ 13:13 by Mateo Xavier MD) 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 Rt VAIBHAV Family History: Family History (Last Reviewed 08/13/17 @ 13:13 by Mateo Xavier MD) Mother Arthritis Sister High blood pressure High cholesterol - Social History Smoking status: Former smoker Packs-years: 62 second hand exposure: No Substance use type: does not use Alcohol intake frequency: does not drink Current occupational status: retired Does patient use chewing tobacco?: No Current residence: Apartment/Private Home Physical Exam - Limitations Limitations: no limitations - General General appearance: alert, in no apparent distress - Normal Exams: Head:: Normocephalic without trauma Eyes:: Pupils are PERRLA w/ EOMI, No scleral icterus, irritation, or foreign bodies noted ENMT:: No facial trauma, nasal exudates, pharyngeal erythema, or exudates are noted Dental: No fractured, loose, or missing teeth noted Neck:: Full range of motion, without adenopathy, JVD, bruits or thyromegaly Chest/Respirations:: Clear all evans, with good airflow, and symmetry bilaterally Cardiovascular:: Regular rate and rhythm, without murmur or gallop, Pulses 2+ all extremities, capillary refill, <2 seconds all extremities Abdomen:: Bowel sounds positive, soft, non-tender, non-distended, no hepatosplenomegaly, masses or bruits noted Lymphatic:: No lymphadenopathy, or lymphedema noted Musculoskeletal:: No tenderness (R Hip - decreased range of motion secondary to pain. Skin is intact. Pulses intact. Sensation intact. Capillary refill less than 2. Generalized tenderness to palpation but no other focal bony tenderness in the right lower extremity. + Shortening with external rotation of right lower extremity. No erythema or edema. All other extremities are unremarkable.), or deformity noted, good range of motion, all extremities Integumentary:: No rashes, hives, or bruising noted, hair and nails, without abnormality Neurological:: Patient is alert, and oriented, cranial nerves, motor/sensory/ cerebellar, exams w/o gross deficits, to observation Psychiatric:: Patient exhibits, appropriate attention, emotion and affect Course Vital Signs Temperature 97.6 F 02/04/18 10:28 Pulse Rate 66 02/04/18 10:28 Respiratory Rate 19 02/04/18 10:28 Blood Pressure 195/83 H 02/04/18 10:28 Pulse Oximetry 96 02/04/18 10:28 Temperature 96.0 F L 02/04/18 15:25 Pulse Rate 57 L 02/04/18 17:16 Respiratory Rate 14 02/04/18 17:16 Blood Pressure 128/55 02/04/18 17:10 Pulse Oximetry 96 02/04/18 17:16 Medical Decision Making - [facility] Narrative Medical decision making narrative: Imaging was reviewed in detail with the patient and family and questions are answered. Patient declines offered analgesic pain medication in the emergency department. Dr. Beckham was contacted for reduction of R hip dislocation in the emergency department. Dr. Beckham states that he will take the patient to the operating room for closed reduction of the right hip in the emergency department. Patient and family are in agreement with the current plan of management. Patient is admitted to the service of orthopedics in improved condition. No further orders from accepting physician who is in agreement with the current plan of management. - Differential Diagnosis sprain, strain, fracture, dislocation - Lab Data Result diagrams: 02/04/18 11:33 02/04/18 11:33 Lab Results 02/04/18 02/04/18 Range/Units 11:33 11:33 WBC 6.6 (4.5-11.0) T/MM3 RBC 3.97 L (4.50-5.90) M/MM3 Hgb 9.8 L (13.5-17.5) GM/DL Hct 31.2 L (41-53) % MCV 78.6 L (80-100) UM3 MCH 24.7 L (26-34) UUG MCHC 31.4 (31-37) GM/DL RDW Std Deviation 40.1 (36.9-50.2) FL Plt Count 170 (130-400) T/MM3 MPV 9.8 (9.4-12.4) UM3 Immature Gran % (Auto) 0.3 (0.0-0.5) % Neut % (Auto) 55.1 (33-66) % Lymph % (Auto) 33.1 (23-45) % [place] % (Auto) 8.4 (0-9.0) % Eos % (Auto) 2.9 (0-4) % Baso % (Auto) 0.2 (0-2) % Neut # (Auto) 3.6 (1.8-7.7) T/MM3 Lymph # (Auto) 2.2 (1-4.8) T/MM3 [place] # (Auto) 0.6 (0-0.8) T/MM3 Eos # (Auto) 0.2 (0-0.5) T/MM3 Baso # (Auto) 0.0 (0-0.2) T/MM3 Abs Immat Gran (auto) 0.02 (0.00-0.03) T/MM3 Turbidity < 20 (0-20) Sodium 140 (134-144) MEQ/L Potassium 4.5 (3.6-5) MEQ/L Chloride 104 (98-107) MEQ/L Carbon Dioxide 27 (22-30) MEQ/L Anion Gap 9 (5-15) meq/L BUN 23.0 H (9-20) MG/DL Creatinine 1.1 (0.8-1.5) mg/dL GFR Calculation 64 BUN/Creatinine Ratio 21 (6-26) RATIO Glucose 86 (75-110) MG/DL Calculated Osmolality 272 (261-280) MOSM/KG Calcium 9.3 (8.4-10.2) MG/DL Icterus Index < 2 (0-7) Specimen Hemolysis < 15 (0-25) - Radiology Data Right hip x-ray: + Right hip dislocation without fracture. Disposition Clinical Impression: Dislocation of right hip Qualifiers: Encounter type: initial encounter Qualified Code(s): S73.004A - Unspecified dislocation of right hip, initial encounter Disposition: To [facility] Condition: Stable Time of Disposition: 12:00 (Admit. Dr. Lott ) - Seen By: physician
--- NOTE | 2018-02-04 11:04 | XRay Report ---
Indication: Possible R Hip Dislocation. PROCEDURE: XR pelvis w/ 2 view RT hip: Encounter: Initial Comparison: June 19, 2017 Findings: There is posterior superior dislocation of the femoral component of the right total hip prosthesis. No acute fracture or dislocation seen. Bony demineralization. Moderate osteoarthritis in the left hip. Degenerative change in the lower lumbar spine. Impression: Right femoral component dislocation. .
[2018-02-04] MEDS ORDERED: MIDAZOLAM 2mg/2ml INJECTION IVP ONE (12:05)
[2018-02-04] MEDS ORDERED: FentaNYL 100 MCG/2 ML INJECTION IVP ONE (12:06)
--- NOTE | 2018-02-04 12:33 | Orthopedic History & Physical ---
Orthopedic HPI - HPI Comments Mr. Joyner is an 82 year old male who felt his right prosthetic hip slip out of socket 02/04/18 AM while arising off of the commode. He had his hip replaced years ago by Dr. Xavier. He denies any other associated trauma with this incident including head trauma. He denies paraesthesias. He was unable to bear weight following and thus presented to [facility]. Dr. Fuentes took X-rays which revealed a left hip dislocation. He last ate 02/03/18 PM, but did take his AM meds with a sip of water. He currently denies headache, change in vision , chest pain, shortness of breath, abdominal pain, open sores, dysuria. He does take Plavix for a stent placed in 2014 and is status post a previous TIA. His pain is presently on the right lateral hip, worse with activity, better with rest. Reduction attempt was made in the ER by myself and Dr. Beckham. No sedation, pain management or muscle relaxant was on board at that time. Plans were made for closed reduction in the OR later today. Basic labs were ordered [facility] Patient Stated Medical History Cerebrovascular Accident Yes: TIA Dementia Yes Transient Ischemic Attacks ( Yes: Age 76 TIA) Hearing Loss Yes Coronary Artery Disease Yes Hypertension Yes Myocardial Infarction Yes: 2015, stent placed Pneumonia Yes Sleep Apnea Yes Diabetes Mellitus Type 2 Yes Constipation No Gastroesophageal Reflux Yes Disease Ulcer Yes Hx Incontinence Yes Anemia Yes Osteoarthritis Yes Anesthesia Reactions No Blood Transfusions No Chemotherapy No Malignant Hyperthermia No Other No Now No Clinic Medical History (Last Reviewed 08/13/17 @ 13:13 by Mateo Xavier MD) 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 Rt VAIBHAV Family History: Family History (Last Reviewed 08/13/17 @ 13:13 by Mateo Xavier MD) Mother Arthritis Sister High blood pressure High cholesterol - Social History Smoking status: Former smoker Packs-years: 62 second hand exposure: No Substance use type: does not use Alcohol intake frequency: does not drink Current occupational status: retired Does patient use chewing tobacco?: No Current residence: Apartment/Private Home Review of Systems - Constitutional Constitutional: Absent: fatigue, headache(s) - EENT Eyes: Absent: blurry vision Ears, nose, mouth, throat: Absent: headaches - Cardiovascular Cardiovascular: Absent: chest pain - Respiratory Respiratory: Absent: cough - Gastrointestinal Gastrointestinal: Absent: abdominal pain - Genitourinary Genitourinary General: Absent: weakness - Musculoskeletal Musculoskeletal: Present: deformity (right hip shortened), limited range of motion, muscle weakness, joint pain - Integumentary/Breasts Integumentary: Absent: erythema - Neurological Neurological: Absent: focal weakness, numbness, paralysis/paresis - Psychiatric Psychiatric: Absent: difficulty concentrating - Hematologic/Lymphatic Hematologic/Lymphatic: Present: easy bleeding Medications Home Medications Medication Instructions Recorded Confirmed Type raNITIdine HCl [Ranitidine HCl] 300 mg PO HS #0 05/04/10 02/04/18 History Metformin HCl 1,000 mg PO BID #0 03/28/16 02/04/18 History Carvedilol 6.25 mg PO BID #0 11/11/16 02/04/18 History Aspirin *EC* [Ecotrin] 81 mg PO DAILY 03/27/17 02/04/18 History Oxybutynin Chloride [Ditropan Xl] 10 mg PO DAILY 04/22/17 02/04/18 History Quetiapine [Seroquel] 50 mg PO HS #30 tab 05/06/17 02/04/18 Rx Clopidogrel Bisulfate [Clopidogrel] 75 mg PO DAILY 02/04/18 02/04/18 History Escitalopram [Lexapro] 20 mg PO DAILY 02/04/18 02/04/18 History Naproxen Sodium [Aleve] 220 mg PO HS 02/04/18 02/04/18 History Sucralfate [Carafate] 1 gm PO HS 02/04/18 02/04/18 History Allergies Allergy/AdvReac Type Severity Reaction Status Date / Time hydrocodone AdvReac Unknown Confusion Verified 02/04/18 11:06 oxycodone AdvReac Unknown Confusion Verified 02/04/18 11:06 Exam - Constitutional Vital Signs: Temperature 97.6 F 02/04/18 10:28 Pulse Rate 63 02/04/18 11:24 Respiratory Rate 17 02/04/18 11:24 Blood Pressure 183/82 H 02/04/18 11:24 Pulse Oximetry 98 02/04/18 11:24 General: cooperative, healthy appearing, no acute distress, well developed, well groomed Nutritional Appearance: well nourished Orientation: alert, oriented x3 - Gait Gait: other (cannot bear weight right side) - Psych Mood: normal Affect: normal Attitude: cooperative - RLE General: other (right leg shortened) Postoperative Appearance: surgical incision well healed, extremity compartments are soft and nontender, neurovascullary intact to extremities Hip Palpation: Tender: lateral, buttock Skin: no rashes or lesions noted Hip Range of Motion: limited external and internal rotation Neurological: no deficits Vascular: dorsalis pedis pulse within normal limits, tibialis posterior pulse within normal limits, capillary refill <2 seconds - Respiratory Respiratory Exam: non-labored - Cardiac Cardiovascular exam: pedal pulses intact - Abdominal GI/Abdominal Exam: soft - Labs Result Diagrams: 02/04/18 11:33 02/04/18 11:33 Abnormal lab results 02/04/18 Range/Units 11:33 RBC 3.97 L (4.50-5.90) M/MM3 Hgb 9.8 L (13.5-17.5) GM/DL Hct 31.2 L (41-53) % MCV 78.6 L (80-100) UM3 MCH 24.7 L (26-34) UUG H & H 02/04/18 Range/Units 11:33 Hgb 9.8 L (13.5-17.5) GM/DL Hct 31.2 L (41-53) % - Diagnostic results Hip x-ray: image reviewed Orthopedic Assessment and Plan (1) Hip dislocation, right Status: Acute Qualifiers: Encounter type: initial encounter Qualified Code(s): S73.004A - Unspecified dislocation of right hip, initial encounter Assessment and Plan: NPO consent for closed reduction of right hip later today. Either Dr. Gaming or Dr. Beckham will perform the reduction, whoever is available first. basic labs CBC, BMP pain meds for comfort. It is anticipated the patient may be able to go home after reduction. Hospital Course Summary Disclaimer: The visit summary below is not to be considered part of the above Progress Note.
[2018-02-04] MEDS: SALINE FLUSH 10ml SYRINGE IVF PRN (12:37)
[2018-02-04] MEDS ORDERED: MORPHINE SULFATE 10mg/ml INJECTION IVP PRN (12:42)
[2018-02-04 13:35] VITALS: BMI 28.5
[2018-02-04] MEDS ORDERED: NS 1,000 ML IV SCH (13:45)
--- NOTE | 2018-02-04 14:13 | Anesthesia Preoperative Report ---
Anesthesia Preoperative Record - Date and Time Date: 02/04/18 Preoperative Diagnosis: Hip out of place NPO Since Date: 02/03/18 NPO Since Time: 18:00 Allergies/Adverse Reactions: Allergies Allergy/AdvReac Type Severity Reaction Status Date / Time hydrocodone AdvReac Unknown Confusion Verified 02/04/18 11:06 oxycodone AdvReac Unknown Confusion Verified 02/04/18 11:06 - Vital Signs Vital Signs: Temperature 97.5 F 02/04/18 13:28 Pulse Rate 57 L 02/04/18 13:28 Respiratory Rate 22 02/04/18 13:28 Blood Pressure 184/86 H 02/04/18 13:28 Pulse Oximetry 96 02/04/18 13:28 Height and Weight: Height 1.88 m Weight 100.9 kg Body Mass Index 28.5 - Medications Inpatient Medications: Current Medications Sodium Chloride (Normal Saline) 1,000 mls @ 50 mls/hr IV .Q20H KRISTOFER Last Admin: 02/04/18 13:47 Dose: 50 mls/hr Morphine Sulfate (Morphine Sulfate Inj) 1 - 5 mg IVP Q1H PRN PRN Reason: Pain Home Medications: Home Medications Medication Instructions Recorded Confirmed Type raNITIdine HCl [Ranitidine HCl] 300 mg PO HS #0 05/04/10 02/04/18 History Metformin HCl 1,000 mg PO BID #0 03/28/16 02/04/18 History Carvedilol 6.25 mg PO BID #0 11/11/16 02/04/18 History Aspirin *EC* [Ecotrin] 81 mg PO DAILY 03/27/17 02/04/18 History Oxybutynin Chloride [Ditropan Xl] 10 mg PO DAILY 04/22/17 02/04/18 History Quetiapine [Seroquel] 50 mg PO HS #30 tab 05/06/17 02/04/18 Rx Clopidogrel Bisulfate [Clopidogrel] 75 mg PO DAILY 02/04/18 02/04/18 History Escitalopram [Lexapro] 20 mg PO DAILY 02/04/18 02/04/18 History Naproxen Sodium [Aleve] 220 mg PO HS 02/04/18 02/04/18 History Sucralfate [Carafate] 1 gm PO HS 02/04/18 02/04/18 History Is Patient on Beta Yang?: Yes Beta Yang Last Dose Date/Time: 02/04/18 @ 0800 - Medical History Respiratory: Reports: Chronic Obstructive Pulmonary Disease (COPD) (long history of tobacco abuse), Dyspnea, Pneumonia, Sleep Apnea (cpap) Cardiovascular: Reports: Abnormal EKG, Coronary Artery Disease (s/p stent in 2014), Hypertension, Myocardial Infarction (2015, stent placed ), Valvular Heart Disease Gastrointestional: Reports: Gastroesophageal Reflux Disease, Ulcer Neuro/Musculoskeletal: Reports: Back Problems, Cerebrovascular Accident (TIA ), Muscle Weakness, Other (history of dimentia) Renal/Endocrine: Reports: Diabetes Mellitus Type 2 Other History: DENIES: Anesthesia Reactions, Now, Blood Transfusions, Chemotherapy , Cancer, Hemophilia, Malignant Hyperthermia, Sickle Cell Disease, Other - Surgical History Neurological Surgeries: Reports: Other (lumbar back surgery; vertebroplasty) HEENT Surgeries: Reports: Eye Surgery (Cataract OU) Cardiac Surgeries/Treatments: Reports: Cardiac Catheterization (with stent - ) Respiratory Surgery/Treatments: Reports: CPAP Use, Other (Thoracentesis) Musculoskeletal Surgery/Tx: Reports: Carpal Tunnel Release (Aamir), Joint Surgery , Shoulder Arthroscopy (Aamir RCR), Total Hip Replacement (Right), Total Knee Replacement Anesthesia Reactions: None Hx Family Anesthesia Reaction: No History of Motion Sickness: No - Social History Smoking Status: Former smoker Packs per day: 1.5 Pack-years: 62 Hx Chewing Tobacco Use: No Second Hand Exposure: No Substance Use Type: does not use Alcohol Intake Frequency: does not drink - Pertinent Findings Laboratory: CBC and BMP 02/04/18 11:33 02/04/18 11:33 BMP 02/04/18 11:33 Sodium 140 Potassium 4.5 Chloride 104 Carbon Dioxide 27 BUN 23.0 H Creatinine 1.1 Glucose 86 Calcium 9.3 EKG: Sinus Bradycardia - Physical Exam Respiratory Exam: Present: lungs clear, bilateral breath sounds equal Cardiovascular Exam: Present: regular rate and rhythm - Airway Assessment Mallampati Score: II TMD: 3 Fingerbreadths Neck Extension: fair Teeth: upper dentures, lower dentures Overall Assessment: no airway concerns - ASA ASA Score: 4, E - Plan Anesthesia: General TIVA, General Inhalation Gases - Discussion Discussion: Discussed risks/options/alternatives of anesthesia and questions answered. Patient consents. Nursing pain assessment noted. Attestation Statement: Prior to the delivery of any anesthetic medication, I examined the patient, developed the plan, obtained the patient's consent and discussed the risk and benefits of the procedure with the patient/guardian. - Additional Information Seen by Anesthesia: Yes
[2018-02-04] MEDS ORDERED: MIDAZOLAM 2mg/2ml INJECTION ONE (14:28)
[2018-02-04] MEDS ORDERED: FentaNYL 250 MCG/5 ML INJECTION ONE (14:28)
--- NOTE | 2018-02-04 15:10 | Anesthesia Postoperative Note ---
- Date and Time Date: 02/04/18 Time: 15:09 - Status Patient Participated in Evaluation: Patient Participated in Person Vital Signs: Temperature 97.2 F 02/04/18 15:06 Pulse Rate 63 02/04/18 15:05 Respiratory Rate 18 02/04/18 15:05 Blood Pressure 160/76 H 02/04/18 15:05 Pulse Oximetry 99 02/04/18 15:05 Respiratory Function: Airway Patent, Regular Respirations Cardiovascular Function: Regular Pulse Mental Status: Alert and Oriented Pain Intensity: 0 Hydration: IV Infusing Complications During Recover: None Apparent - Follow-Up Instructions Instructions: Per Surgeon
--- NOTE | 2018-02-04 15:46 | Remote Fluorsocopy Report ---
Indication: REDUCTION PROCEDURE: RF hip RT 1 view: Encounter: Initial Comparison: Radiographs from today Findings/ Impression: Single fluoroscopic spot image shows apparent interval reduction of the right femoral component dislocation. Fluoroscopy time is 12 seconds. Fluoroscopy dose is 558.2 mRad. .
[2018-02-04] MEDS: ACETAMINOPHEN 500 MG TABLET PO PRN (21:16)
[2018-02-05] MEDS: ACETAMINOPHEN 500 MG TABLET PO PRN (03:18)
[2018-02-05] MEDS: ASPIRIN *EC* 81 MG TABLET PO SCH (09:17)
[2018-02-05] MEDS: CARVEDILOL 6.25 MG TABLET PO SCH ×2 (09:17→17:22)
[2018-02-05] MEDS: ESCITALOPRAM 20 MG TABLET PO SCH (09:17)
[2018-02-05] MEDS: METFORMIN 1,000 MG TABLET PO SCH ×2 (09:17→17:22)
[2018-02-05] MEDS: CLOPIDOGREL 75 MG TABLET PO SCH (09:17)
--- NOTE | 2018-02-05 10:49 | Operative Note ---
DATE OF OPERATION 02/04/2018 PREOPERATIVE DIAGNOSIS Right hip prosthetic dislocation. POSTOPERATIVE DIAGNOSIS Right hip prosthetic dislocation. PROCEDURE Closed reduction of right hip prosthetic dislocation. SURGEON Dell Gaming MD DIRECTOR MEDICAL SCIENCE Isabela Benitez APRN COMPLICATIONS None ANESTHESIA TIVA DESCRIPTION OF PROCEDURE Mr. Joyner and his right hip were identified and marked in the preoperative holding area. He was brought back to the operating suite and placed supine on the operating table. He was placed under general anesthesia. Time-out was performed. I performed a reduction maneuver using the [place] technique, flexing his left hip and knee and then placing my arm under his right knee and then pulling traction with the hip flexed to about 45 degrees with some internal rotation, the hip did reduce. This was confirmed on x-ray. I then took the hip through a range of motion, up to 90 degrees flexion of the hip and probably about 15-20 degrees of internal rotation, he dislocated again. He was reduced again in a similar fashion and a knee immobilizer was placed. He was then allowed to awake from general anesthesia and taken to the recovery room under the care of Anesthesia. He tolerated the procedure well. There were no complications. ELI
[2018-02-05] MEDS ORDERED: PNEUMOCOCCAL 23 VACCINE 0.5ml INJECTION IM ONE (13:00)
--- NOTE | 2018-02-05 17:02 | Orthopedic Progress Note ---
Date: Date: 02/05/18 Time: 1658 Subjective/Severity of Illness: Mr Joyner was seen this AM on morning rounds. He is not having much pain and has been up with PT. Mr Joyner lives alone because his is hospitalized down in [place] and is not likely to be home soon, if ever, according to Mr Joyner. Jonathan has refused NH placement in the past and feels the same today. His family is not available to discuss his condition but ISA has been in touch with them. Pt has had confusion and there are concerns about his safety from both a physical and mental standpoint. Orthopedic Exam Vital signs: Temperature 95.9 F L 02/05/18 15:57 Pulse Rate 64 02/05/18 15:57 Respiratory Rate 18 02/05/18 15:57 Blood Pressure 149/69 H 02/05/18 15:57 Pulse Oximetry 97 02/05/18 15:57 - Constitutional General Appearance: Present: alert, no acute distress - Respiratory Exam Present: non-labored - Cardiovascular Exam Present: pedal pulses intact - Extremities Exam Present: pulses intact - Integumentary Exam Present: pink, warm, dry - Neurological Exam Present: intact to light touch, no deficits - Psychiatric Exam Present: alert - Labs Result Diagrams: 02/04/18 11:33 02/04/18 11:33 Orthopedic Assessment and Plan (1) Hip dislocation, right Status: Acute Qualifiers: Encounter type: initial encounter Qualified Code(s): S73.004A - Unspecified dislocation of right hip, initial encounter Assessment and Plan: Discharge disposition is becoming an issue. ISA is working with Jonathan and looking into our options. IRU has refused transfer. Will keep him tonight until discharge needs are sorted out. Hospital Course Summary Disclaimer: The visit summary below is not to be considered part of the above Progress Note.
[2018-02-05] MEDS: RANITIDINE 300 MG TABLET PO SCH (20:26)
[2018-02-05] MEDS: NAPROXEN 220 MG TABLET PO SCH (20:26)
[2018-02-05] MEDS: QUETIAPINE 50 MG TABLET PO SCH (20:26)
[2018-02-05] MEDS: SUCRALFATE 1 GM TABLET PO SCH (20:26)
[2018-02-05] MEDS: SALINE FLUSH 10ml SYRINGE IVF PRN (20:27)
[2018-02-06] MEDS: ESCITALOPRAM 20 MG TABLET PO SCH (08:27)
[2018-02-06] MEDS: CLOPIDOGREL 75 MG TABLET PO SCH (08:27)
[2018-02-06] MEDS: METFORMIN 1,000 MG TABLET PO SCH ×2 (08:27→17:49)
[2018-02-06] MEDS: ASPIRIN *EC* 81 MG TABLET PO SCH (08:28)
[2018-02-06] MEDS: CARVEDILOL 6.25 MG TABLET PO SCH ×2 (08:28→17:49)
--- NOTE | 2018-02-06 10:31 | Orthopedic Progress Note ---
Date: Date: 02/06/18 Time: 1030 Subjective/Severity of Illness: Mr Joyner was seen this AM on morning rounds. He is not having much pain and has been up with PT. Mr Joyner lives alone because his is hospitalized down in [place] and is not likely to be home soon, if ever, according to Mr Joyner. Jonathan has refused NH placement in the past and feels the same today. His family is not available to discuss his condition but ISA has been in touch with them. Pt has had confusion and there are concerns about his safety from both a physical and mental standpoint. Exam - Constitutional Vital Signs: Temperature 97.0 F 02/06/18 07:35 Pulse Rate 61 02/06/18 07:35 Respiratory Rate 16 02/06/18 07:35 Blood Pressure 161/85 H 02/06/18 07:35 Pulse Oximetry 96 02/06/18 07:35 General: cooperative, healthy appearing, no acute distress, well developed, well groomed Nutritional Appearance: well nourished Orientation: alert, oriented x3 - RLE Postoperative Appearance: surgical incision well healed, extremity compartments are soft and nontender, neurovascullary intact to extremities - Respiratory Respiratory Exam: non-labored - Cardiac Cardiovascular exam: pedal pulses intact - Abdominal GI/Abdominal Exam: soft - Labs Result Diagrams: 02/04/18 11:33 02/04/18 11:33 Orthopedic Assessment and Plan (1) Hip dislocation, right Status: Acute Qualifiers: Encounter type: initial encounter Qualified Code(s): S73.004A - Unspecified dislocation of right hip, initial encounter Assessment and Plan: Discharge disposition is becoming an issue. ISA is working with Jonathan and looking into our options. IRU has refused transfer. Will keep him tonight until discharge needs are sorted out. Hospital Course Summary Disclaimer: The visit summary below is not to be considered part of the above Progress Note.
[2018-02-06] MEDS: ACETAMINOPHEN 500 MG TABLET PO PRN (11:28)
--- NOTE | 2018-02-06 14:37 | XRay Report ---
Indication: possible dislocation PROCEDURE: XR pelvis w/ 1 view RT hip: Encounter: Initial Comparison: February 04, 2018 Findings: Posterior superior dislocation of the femoral component of the right total hip prosthesis is again noted in a similar position to the comparison. No acute fracture identified. Impression: Recurrent right femoral component dislocation. .
--- NOTE | 2018-02-06 14:55 | Neuropsychiatric Consult ---
[facility] Date: 02/06/18 Reason for Consultation: Capacity evaluation Start Time: 14:20 Stop Time: 15:00 History of Present Illness: Patient is an 82-year-old , retired male who was admitted to [facility] [place] 02[place]04 due to displacement of prosthetic hip joint needing repair. Patient to undergo surgery on 02/07 though primary team concerned with cognitive status and patient's ability to make his own medical decisions. Patient currently lives alone as his is hospitalized in [place] with serious chronic medical issues. Nursing staff reported increased confusion in patient and OT felt he was not remembering directions on how to care for himself after hip surgery. Patient was minimally cooperative during interview with encouragement and was irritable due to the fact that I was asking him these questions. He reports feeling that he can make his own decisions, but then also states, "I lost my memory." When asked to clarify, he states that "age is getting to him" and he can't remember things he used to. He says he can remember things that happened long ago, but not day-to-day. With further questioning, he tells me, "Woman, you 're just making things worse!" He is quite angry at [facility] staff for questioning his ability to care for himself. Attempted to review recommendations from OT in regards to his hip and safe movements. On his own, he tells me that he is not supposed to cross his legs or feet, and not supposed to put his feet "straight up and down." He then asks me for the instruction sheets on the counter and attempts to look at the pictures and describe them. Patient is fully oriented on interview. 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 Discussed concern with him and importance of participation if he has the goal/ desire of making his own medical decisions. In regards to SLUMS, patient would then only participate in about half the test. Out of 19 points, he scored a 12. He was able to name the week, year and state. He was able to answer the money questions. He was able to name only 2/5 objects after a short delay and name 12 animals in a minute. he was able to draw the numbers on the clock face but was not able to set the time correctly. Patient failed DAIN and 24-hour supervision for safety recommended. He states that his grandson's girlfriend helps him with his med environmental emergencies planner. When asked about a DPOA, he initially names her but then refuses to fill out the official paperwork when presented with it by CM. [facility] Patient Stated Medical History Cerebrovascular Accident Yes: TIA Hearing Loss Yes: wears hearing aids Coronary Artery Disease Yes: s/p stent in 2014 Hypertension Yes Myocardial Infarction Yes: 2015, stent placed Valvular Heart Disease Yes Chronic Obstructive Pulmonary Yes: long history of tobacco abuse Disease (COPD) Pneumonia Yes Sleep Apnea Yes: cpap Diabetes Mellitus Type 2 Yes Hx Incontinence Yes Anemia Yes Other Musculoskeletal Yes: history of dimentia Anesthesia Reactions No Blood Transfusions No Chemotherapy No Malignant Hyperthermia No Other No Now No Clinic Medical History (Last Reviewed 08/13/17 @ 13:13 by Mateo Xavier MD) 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 Rt VAIBHAV Family History: Family History (Last Reviewed 08/13/17 @ 13:13 by Mateo Xavier MD) Mother Arthritis Sister High blood pressure High cholesterol - Social History Smoking status: Former smoker Packs per day: 1.5 Packs-years: 62 second hand exposure: No Substance use type: does not use Alcohol intake frequency: does not drink Household members: none Current occupational status: retired Does patient use chewing tobacco?: No Current residence: Apartment/Private Home Mental Status Exam Vitals: Last Vital Signs Temp 96.2 F L 02/06/18 11:56 Pulse 59 L 02/06/18 11:56 Resp 14 02/06/18 11:56 BP 143/68 H 02/06/18 11:56 Pulse Ox 96 02/06/18 11:56 Height: 1.88 m Weight: 100.5 kg - Mental Status Exam Muscle Strength/Tone: Normal Dressing: Casual Grooming: Fair Attitude: Uncooperative, Defensive Motor Activity: Normal Eye Contact: Good Speech: Normal Volume: Normal Rhythm: Appropriate Rhythm Sensory: Alert Orientation: Oriented X4 Mood: Angry (affect irritable) Thought Organization: Organized, [place] Associations: Intact Abstract Reasoning: Poor abstract reasoning Computation: Appropriate for Education Level Thought Content: Other (Anger at hospital staff due to concern for cognition) Perception/Psychotic: Perception Normal Language: Other (Some decrease from baseline, not completely impaired) Memory: Poor-recent Suicidal Ideation: Denies Homicidal Ideation: Denies Insight: Limited Judgement: Limited Impulse Control: Other (Limited) - Laboratory Result Diagrams: 02/07/18 04:16 02/07/18 04:16 Laboratory Results - last 24 hr 02/06/18 02/06/18 06:08 10:08 Glucometer 98 153 Assessment and Plan (1) 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 He does have capacity to name DPOA if he were willing but he later refused when CM presented him with paperwork. ( Previous DPOA does not want to be involved at this time).
--- NOTE | 2018-02-06 16:20 | Progress Note ---
Progress Note: Patient seen by psych and full note will be added to chart. Patient does not have capacity to make all medical decisions due to short term memory loss, but he is willing to name alternate DPOA. Discussed with ISA Aguero and asked her to assist him in finalizing paperwork. Medical decisions re: placement can then be deferred to DPOA.
--- NOTE | 2018-02-06 17:03 | Anesthesia Preoperative Report ---
Anesthesia Preoperative Record - Date and Time Date: 02/06/18 Preoperative Diagnosis: Right Prosthetic Hip Dislocation NPO Since Date: 02/06/18 NPO Since Time: 12:00 (full meal) Allergies/Adverse Reactions: Allergies Allergy/AdvReac Type Severity Reaction Status Date / Time hydrocodone AdvReac Unknown Confusion Verified 02/04/18 11:06 oxycodone AdvReac Unknown Confusion Verified 02/04/18 11:06 - Vital Signs Vital Signs: Temperature 96.2 F L 02/06/18 11:56 Pulse Rate 59 L 02/06/18 11:56 Respiratory Rate 14 02/06/18 11:56 Blood Pressure 143/68 H 02/06/18 11:56 Pulse Oximetry 96 02/06/18 11:56 Height and Weight: Weight 100.6 kg - Medications Inpatient Medications: Current Medications Acetaminophen (Tylenol) 500 - 1,000 mg PO Q6H PRN PRN Reason: Pain Last Admin: 02/06/18 11:28 Dose: 1,000 mg Aspirin (Ecotrin) 81 mg PO DAILY [facility] Last Admin: 02/06/18 08:28 Dose: 81 mg Carvedilol (Coreg) 6.25 mg PO BIDWM [facility] Last Admin: 02/06/18 08:28 Dose: 6.25 mg Clopidogrel Bisulfate (Plavix) 75 mg PO DAILY [facility] Last Admin: 02/06/18 08:27 Dose: 75 mg Escitalopram Oxalate (Lexapro) 20 mg PO DAILY [facility] Last Admin: 02/06/18 08:27 Dose: 20 mg Metformin HCl (Glucophage) 1,000 mg PO BIDWM [facility] Last Admin: 02/06/18 08:27 Dose: 1,000 mg Naproxen (Aleve (Naproxen) 220 Mg) 220 mg PO [facility] Last Admin: 02/05/18 20:26 Dose: 220 mg Oxybutynin Chloride (Ditropan Xl) 10 mg PO DAILY [facility] Last Admin: 02/06/18 08:27 Dose: 10 mg Quetiapine Fumarate (Seroquel) 50 mg PO [facility] Last Admin: 02/05/18 20:26 Dose: 50 mg Ranitidine HCl (Zantac) 300 mg PO [facility] Last Admin: 02/05/18 20:26 Dose: 300 mg Sucralfate (Carafate) 1 gm PO [facility] Last Admin: 02/05/18 20:26 Dose: 1 gm Home Medications: Home Medications Medication Instructions Recorded Confirmed Type raNITIdine HCl [Ranitidine HCl] 300 mg PO HS #0 05/04/10 02/04/18 History Metformin HCl 1,000 mg PO BID #0 03/28/16 02/04/18 History Carvedilol 6.25 mg PO BID #0 11/11/16 02/04/18 History Aspirin *EC* [Ecotrin] 81 mg PO DAILY 03/27/17 02/04/18 History Oxybutynin Chloride [Ditropan Xl] 10 mg PO DAILY 04/22/17 02/04/18 History Quetiapine [Seroquel] 50 mg PO HS #30 tab 05/06/17 02/04/18 Rx Acetaminophen [Tylenol] 500 - 1,000 mg PO Q8H PRN #100 tab 02/04/18 Rx Clopidogrel Bisulfate [Clopidogrel] 75 mg PO DAILY 02/04/18 02/04/18 History Escitalopram [Lexapro] 20 mg PO DAILY 02/04/18 02/04/18 History Naproxen Sodium [Aleve] 220 mg PO HS 02/04/18 02/04/18 History Sucralfate [Carafate] 1 gm PO HS 02/04/18 02/04/18 History Is Patient on Beta Yang?: Yes Beta Yang Last Dose Date/Time: 02/04/18 @ 0800 - Medical History Respiratory: Reports: Chronic Obstructive Pulmonary Disease (COPD) (long history of tobacco abuse), Dyspnea, Pneumonia, Sleep Apnea (cpap) Cardiovascular: Reports: Abnormal EKG, Coronary Artery Disease (s/p stent in 2014, asymptomatic since), Hypertension, Myocardial Infarction (2014, stent placed ), Valvular Heart Disease Gastrointestional: Reports: Gastroesophageal Reflux Disease, Ulcer DENIES: Nausea or Vomiting Present Neuro/Musculoskeletal: Reports: Back Problems, Cerebrovascular Accident (TIA ), Muscle Weakness, Other (history of dimentia) Renal/Endocrine: Reports: Diabetes Mellitus Type 2 Other History: DENIES: Anesthesia Reactions, Now, Blood Transfusions, Chemotherapy , Cancer, Hemophilia, Malignant Hyperthermia, Sickle Cell Disease, Other - Surgical History Neurological Surgeries: Reports: Other (lumbar back surgery; vertebroplasty) HEENT Surgeries: Reports: Eye Surgery (Cataract OU) Cardiac Surgeries/Treatments: Reports: Cardiac Catheterization (with stent 11-15 ) Respiratory Surgery/Treatments: Reports: CPAP Use, Other (Thoracentesis) Musculoskeletal Surgery/Tx: Reports: Carpal Tunnel Release (Aamir), Joint Surgery , Shoulder Arthroscopy (Aamir RCR), Total Hip Replacement (Right), Total Knee Replacement Anesthesia Reactions: None Hx Family Anesthesia Reaction: No History of Motion Sickness: No - Social History Smoking Status: Former smoker Packs per day: 1.5 Pack-years: 62 Hx Chewing Tobacco Use: No Second Hand Exposure: No Substance Use Type: does not use Alcohol Intake Frequency: does not drink - Pertinent Findings EKG: Sinus Bradycardia - Physical Exam Respiratory Exam: Present: lungs clear, bilateral breath sounds equal Cardiovascular Exam: Present: regular rate and rhythm - Airway Assessment Mallampati Score: II TMD: 3 Fingerbreadths Neck Extension: fair Teeth: upper dentures, lower dentures Overall Assessment: no airway concerns - ASA ASA Score: 4, E - Plan Anesthesia: General TIVA, General Inhalation Gases, Other (RSI) - Discussion Discussion: Discussed risks/options/alternatives of anesthesia and questions answered. Patient consents. Nursing pain assessment noted. Attestation Statement: Prior to the delivery of any anesthetic medication, I examined the patient, developed the plan, obtained the patient's consent and discussed the risk and benefits of the procedure with the patient/guardian. - Additional Information Seen by Anesthesia: Yes
[2018-02-06] MEDS ORDERED: KETAMINE 500 MG/10 ML INJECTION ONE (17:47)
[2018-02-06] MEDS: NS 1,000 ML IV SCH (17:50)
[2018-02-06] MEDS ORDERED: PROPOFOL 60 ML ONE (17:52)
[2018-02-06] MEDS ORDERED: SUCCINYLCHOLINE 20mg/mL 10mL INJECTION ONE (17:53)
[2018-02-06] MEDS ORDERED: ROCURONIUM 50 MG/5 ML INJECTION IVP ONE (17:53)
--- NOTE | 2018-02-06 18:27 | Orthopedic Progress Note ---
Date: Date: 02/06/18 Time: 1822 Subjective/Severity of Illness: Case management has been working to find appropriate placement for Mr Joyner. Unfortunately, he was working with therapy today when he again dislocated his right total hip. He was wearing his brace when the hip dislocated. Attempts to reduce this at bedside by Dr Gaming was unsuccessful and pt was scheduled for closed reduction in the OR. Pt denies numbness or tingling in the leg or foot. He is only painful if he moves. Orthopedic Exam Vital signs: Temperature 95.9 F L 02/05/18 15:57 Pulse Rate 64 02/05/18 15:57 Respiratory Rate 18 02/05/18 15:57 Blood Pressure 149/69 H 02/05/18 15:57 Pulse Oximetry 97 02/05/18 15:57 - Constitutional General Appearance: Present: alert, cooperative, no acute distress - Respiratory Exam Present: non-labored - Cardiovascular Exam Present: pedal pulses intact - Abdominal Exam Present: soft. Absent: tenderness, distended - Extremities Exam Present: pulses intact. Absent: calf tenderness - Hip Exam right Hip Exam: Present: unequal leg length, abnormal rotation - Integumentary Exam Present: pink, warm, dry - Neurological Exam Present: intact to light touch, no deficits - Psychiatric Exam Present: alert - Labs Result Diagrams: 02/04/18 11:33 02/04/18 11:33 Orthopedic Assessment and Plan (1) Hip dislocation, right Status: Acute Qualifiers: Encounter type: initial encounter Qualified Code(s): S73.004A - Unspecified dislocation of right hip, initial encounter Assessment and Plan: Mr Foley was taken back to the OR on 02/06/18 for closed reduction of the right hip under anesthesia. We will put him in a wedge pillow tonight and consider placement in a hip brace tomorrow. Pt may eventually need hip revision to a constrained hip system. He is undergoing some testing for his cognitive status to see if he is safe to be at home independently. Dr Tejada (neuro-psych consult) has evaluated him and he feels pt is not able to make his own medical decisions due to short term memory loss. CM is attempting to work with family to develop a DPOA and find appropriate placement. Continue to monitor blood sugars and add bowel motivation meds. Home meds have been restarted. - Anticoagulation Therapy Anticoagulation: Resume home anticoagulant Hospital Course Summary Disclaimer: The visit summary below is not to be considered part of the above Progress Note.
--- NOTE | 2018-02-06 18:36 | Anesthesia Postoperative Note ---
- Date and Time Date: 02/06/18 Time: 18:35 - Status Patient Participated in Evaluation: Patient Participated in Person Vital Signs: Temperature 97.2 F 02/06/18 16:00 Pulse Rate 64 02/06/18 16:00 Respiratory Rate 16 02/06/18 16:00 Blood Pressure 158/72 H 02/06/18 16:00 Pulse Oximetry 95 02/06/18 16:00 Respiratory Function: Airway Patent Cardiovascular Function: Regular Pulse EKG: Sinus Rhythm Mental Status: Alert and Oriented Pain Intensity: 0 Hydration: IV Infusing Complications During Recover: None Apparent - Follow-Up Instructions Instructions: Per Surgeon
[2018-02-06] MEDS: RANITIDINE 300 MG TABLET PO SCH (20:48)
[2018-02-06] MEDS: QUETIAPINE 50 MG TABLET PO SCH (20:48)
[2018-02-06] MEDS: NAPROXEN 220 MG TABLET PO SCH (20:48)
[2018-02-06] MEDS: SUCRALFATE 1 GM TABLET PO SCH (20:49)
[2018-02-07] MEDS: NS 1,000 ML IV SCH ×2 (07:49→17:54)
[2018-02-07] MEDS: CARVEDILOL 6.25 MG TABLET PO SCH ×2 (07:50→17:53)
[2018-02-07] MEDS: ASPIRIN *EC* 81 MG TABLET PO SCH ×2 (07:50→10:48)
[2018-02-07] MEDS: METFORMIN 1,000 MG TABLET PO SCH ×2 (07:50→17:53)
[2018-02-07] MEDS: ESCITALOPRAM 20 MG TABLET PO SCH ×2 (07:51→10:48)
[2018-02-07] MEDS: CLOPIDOGREL 75 MG TABLET PO SCH ×2 (07:51→10:48)
[2018-02-07] MEDS: POLYETHYL GLYCOL 3350 17gm PACKET PO SCH ×2 (07:52→10:48)
--- NOTE | 2018-02-07 08:22 | Remote Fluorsocopy Report ---
Indication: Right hip closed reduction PROCEDURE: RF hip RT 1 view: Encounter: Initial Comparison: February 04, 2018 Findings: Single fluoroscopic spot image shows reduction of the right femoral component dislocation. Impression: Fluoroscopy as above. Fluoroscopy time is 20.5 seconds. Fluoroscopy dose is 621.5 mRad. .
--- NOTE | 2018-02-07 08:44 | Orthopedic Progress Note ---
Date: Date: 02/07/18 Time: 838 Subjective/Severity of Illness: Mr Joyner is seen on morning rounds. He had a closed reduction of the right total hip last evening (second event). Denies much pain, no numbness, tingling or weakness in the leg. Dr Gaming talked with him about following hip precautions closely or we will likely need to consider revision surgery. Pt expressed an understanding of this and will try to follow hip precautions. Orthopedic Exam Vital signs: Temperature 95.9 F L 02/05/18 15:57 Pulse Rate 64 02/05/18 15:57 Respiratory Rate 18 02/05/18 15:57 Blood Pressure 149/69 H 02/05/18 15:57 Pulse Oximetry 97 02/05/18 15:57 - Constitutional General Appearance: Present: alert, cooperative, no acute distress - Respiratory Exam Present: non-labored - Cardiovascular Exam Present: pedal pulses intact - Abdominal Exam Present: soft. Absent: tenderness, distended - Extremities Exam Present: pulses intact. Absent: calf tenderness - Hip Exam right Hip Exam: Present: alignment normal - Integumentary Exam Present: pink, warm, dry - Neurological Exam Present: intact to light touch, no deficits - Psychiatric Exam Present: alert - Labs Result Diagrams: 02/07/18 04:16 02/07/18 04:16 Abnormal lab results 02/07/18 Range/Units 04:16 RBC 3.77 L (4.50-5.90) M/MM3 Hgb 9.2 L (13.5-17.5) GM/DL Hct 29.4 L (41-53) % MCV 78.0 L (80-100) UM3 MCH 24.4 L (26-34) UUG H & H 02/07/18 Range/Units 04:16 Hgb 9.2 L (13.5-17.5) GM/DL Hct 29.4 L (41-53) % Orthopedic Assessment and Plan (1) Hip dislocation, right Status: Acute Qualifiers: Encounter type: initial encounter Qualified Code(s): S73.004A - Unspecified dislocation of right hip, initial encounter Assessment and Plan: Mr Foley was taken to the OR on 02/04/18 and 02/06/18 for closed reduction of the right hip under anesthesia. I talked with PT/OT. They will work with him on hip precautions and ambulation. Pt is not a good candidate for hip abduction brace due to cognitive issues. He is underwent testing of his cognitive status to see if he is safe to be at home independently. Dr Tejada (neuro-psych consult) has evaluated him and he feels pt is not able to make his own medical decisions due to short term memory loss. CM is working with the DPOA to find appropriate placement. Please see CM notes on this. Hopeful for discharge today if placement can be arranged. Continue to monitor blood sugars and monitor for constipation. Home meds have been restarted. His glucometer was 94 this AM. Hgb 9.2 BMP was normal. - Anticoagulation Therapy Anticoagulation: Resume home anticoagulant (Plavix and aspirin) Hospital Course Summary Disclaimer: The visit summary below is not to be considered part of the above Progress Note.
--- NOTE | 2018-02-07 12:13 | Operative Note ---
DATE OF OPERATION 02/06/2018 PREOPERATIVE DIAGNOSIS Right hip prosthetic dislocation. POSTOPERATIVE DIAGNOSIS Right hip prosthetic dislocation. PROCEDURE Reduction of right total hip arthroplasty dislocation. SURGEON Dell Gaming MD [employer] INVE[employer]IGATOR Isabela Benitez APRN COMPLICATIONS None ANESTHESIA General DESCRIPTION OF PROCEDURE Mr. Mahajan and his right hip were identified and marked in his hospital room bed. He was brought back to the operating suite and placed under general anesthesia. He was supine on the operating table. Time-out was performed. Reduction maneuver was performed to the right hip with traction, flexion and internal and external rotation until an audible clunk was noted. At that time, his leg length returned to normal and his foot externally rotated equal to the other side. Reduction was confirmed on x-ray. I then took him through a range of motion with the knee flexed to 90 and the hip flexed to about 80 degrees. He clunked out again. This again was easily reduced. I took him through a range of motion again this time with his knee extended and I could not flex his hip far enough for him to dislocate with his knee extended. Also with his hip in extension and internal and external rotation, I could not get the hip to dislocate. He was then placed into abduction wedge pillow and allowed to wake from general anesthesia and taken to the recovery room under the care of Anesthesia. He tolerated the procedure well and there were no complications. ELI
[2018-02-07] MEDS: ACETAMINOPHEN 500 MG TABLET PO PRN (15:15)
[2018-02-07] MEDS: NAPROXEN 220 MG TABLET PO SCH (20:31)
[2018-02-07] MEDS: RANITIDINE 300 MG TABLET PO SCH (20:31)
[2018-02-07] MEDS: SUCRALFATE 1 GM TABLET PO SCH (20:31)
[2018-02-07] MEDS: QUETIAPINE 50 MG TABLET PO SCH (20:31)
[2018-02-08] MEDS: NS 1,000 ML IV SCH ×3 (04:37→23:45)
--- NOTE | 2018-02-08 06:18 | Orthopedic Progress Note ---
Date: Date: 02/08/18 Time: 614 Subjective/Severity of Illness: Mr Joyner is seen on morning rounds. He had a closed reduction of the right total hip (second event). He is sleeping comfortably; abductor pillow in place. Leg lengths equal. Orthopedic Exam Vital signs: Temperature 95.9 F L 02/05/18 15:57 Pulse Rate 64 02/05/18 15:57 Respiratory Rate 18 02/05/18 15:57 Blood Pressure 149/69 H 02/05/18 15:57 Pulse Oximetry 97 02/05/18 15:57 - Constitutional General Appearance: Present: no acute distress - Respiratory Exam Present: non-labored - Cardiovascular Exam Present: pedal pulses intact - Abdominal Exam Present: soft. Absent: tenderness, distended - Extremities Exam Present: pulses intact. Absent: calf tenderness - Hip Exam right Hip Exam: Present: alignment normal - Integumentary Exam Present: pink, warm, dry - Neurological Exam Present: intact to light touch, no deficits - Psychiatric Exam Comments: sleeping - Labs Result Diagrams: 02/07/18 04:16 02/07/18 04:16 H & H 02/07/18 Range/Units 04:16 Hgb 9.2 L (13.5-17.5) GM/DL Hct 29.4 L (41-53) % Orthopedic Assessment and Plan (1) Hip dislocation, right Status: Acute Qualifiers: Encounter type: initial encounter Qualified Code(s): S73.004A - Unspecified dislocation of right hip, initial encounter Assessment and Plan: Mr Foley was taken to the OR on 02/04/18 and 02/06/18 for closed reduction of the right hip under anesthesia. PT/OT harrison work with him on hip precautions and ambulation. He is underwent testing of his cognitive status to see if he is safe to be at home independently. Dr Tejada (neuro-psych consult) has evaluated him and he feels pt is not able to make his own medical decisions due to short term memory loss. CM is working with the DPOA to find appropriate placement. Please see [facility]A notes on this. Hopeful for discharge today if placement can be arranged. Continue to monitor blood sugars and monitor for constipation. Home meds have been restarted. His glucometer was 94 this AM. Hgb 9.2 BMP was normal. Hospital Course Summary Disclaimer: The visit summary below is not to be considered part of the above Progress Note.
[2018-02-08] MEDS: ESCITALOPRAM 20 MG TABLET PO SCH (08:28)
[2018-02-08] MEDS: CARVEDILOL 6.25 MG TABLET PO SCH ×2 (08:28→17:23)
[2018-02-08] MEDS: ASPIRIN *EC* 81 MG TABLET PO SCH (08:28)
[2018-02-08] MEDS: CLOPIDOGREL 75 MG TABLET PO SCH (08:28)
[2018-02-08] MEDS: METFORMIN 1,000 MG TABLET PO SCH ×2 (08:28→17:23)
[2018-02-08] MEDS: POLYETHYL GLYCOL 3350 17gm PACKET PO SCH (08:29)
[2018-02-08] MEDS: SUCRALFATE 1 GM TABLET PO SCH (20:59)
[2018-02-08] MEDS: NAPROXEN 220 MG TABLET PO SCH (20:59)
[2018-02-08] MEDS: RANITIDINE 300 MG TABLET PO SCH (20:59)
[2018-02-08] MEDS: QUETIAPINE 50 MG TABLET PO SCH (20:59)
[2018-02-09] MEDS: NS 1,000 ML IV SCH ×2 (05:08→19:42)
[2018-02-09] MEDS: ESCITALOPRAM 20 MG TABLET PO SCH (09:01)
[2018-02-09] MEDS: CLOPIDOGREL 75 MG TABLET PO SCH (09:01)
[2018-02-09] MEDS: ASPIRIN *EC* 81 MG TABLET PO SCH (09:01)
[2018-02-09] MEDS: POLYETHYL GLYCOL 3350 17gm PACKET PO SCH (09:01)
[2018-02-09] MEDS: CARVEDILOL 6.25 MG TABLET PO SCH ×2 (09:01→17:15)
[2018-02-09] MEDS: METFORMIN 1,000 MG TABLET PO SCH ×2 (09:01→17:15)
--- NOTE | 2018-02-09 15:59 | Orthopedic Progress Note ---
Date: Date: 02/09/18 Time: 1555 Subjective/Severity of Illness: Mr Joyner is seen on morning rounds. He had a closed reduction of the right total hip (second event). He is comfortable; abductor pillow in place. Leg lengths equal. Awaiting placement. Orthopedic Exam Vital signs: Temperature 95.9 F L 02/05/18 15:57 Pulse Rate 64 02/05/18 15:57 Respiratory Rate 18 02/05/18 15:57 Blood Pressure 149/69 H 02/05/18 15:57 Pulse Oximetry 97 02/05/18 15:57 - Constitutional General Appearance: Present: alert, orientated x3, no acute distress - Respiratory Exam Present: non-labored - Cardiovascular Exam Present: pedal pulses intact - Abdominal Exam Present: soft. Absent: tenderness, distended - Extremities Exam Present: pulses intact. Absent: calf tenderness - Hip Exam right Hip Exam: Present: alignment normal - Integumentary Exam Present: pink, warm, dry - Neurological Exam Present: intact to light touch, no deficits - Psychiatric Exam Present: alert - Labs Result Diagrams: 02/07/18 04:16 02/07/18 04:16 H & H 02/07/18 Range/Units 04:16 Hgb 9.2 L (13.5-17.5) GM/DL Hct 29.4 L (41-53) % Orthopedic Assessment and Plan (1) Hip dislocation, right Status: Acute Qualifiers: Encounter type: initial encounter Qualified Code(s): S73.004A - Unspecified dislocation of right hip, initial encounter Assessment and Plan: Mr Foley was taken to the OR on 02/04/18 and 02/06/18 for closed reduction of the right hip under anesthesia. PT/OT harrison work with him on hip precautions and ambulation. He is underwent testing of his cognitive status to see if he is safe to be at home independently. Dr Tejada (neuro-psych consult) has evaluated him and he feels pt is not able to make his own medical decisions due to short term memory loss. CM is working with the [facility] to find appropriate placement. Please see [facility] notes on this. Hopeful for discharge if placement can be arranged. Continue to monitor blood sugars and monitor for constipation. Home meds have been restarted. Hospital Course Summary Disclaimer: The visit summary below is not to be considered part of the above Progress Note.
[2018-02-09] MEDS: NAPROXEN 220 MG TABLET PO SCH (21:32)
[2018-02-09] MEDS: SUCRALFATE 1 GM TABLET PO SCH (21:32)
[2018-02-09] MEDS: RANITIDINE 300 MG TABLET PO SCH (21:32)
[2018-02-09] MEDS: QUETIAPINE 50 MG TABLET PO SCH (21:32)
[2018-02-10] MEDS: NS 1,000 ML IV SCH ×2 (02:53→16:47)
--- NOTE | 2018-02-10 08:13 | Orthopedic Progress Note ---
Date: Date: 02/10/18 Time: 809 Subjective/Severity of Illness: Mr Joyner has no complaints today, but is ready to go home. Denies much pain. He has been mobile with therapy. We are still awaiting placement due to pts inability to make his own medical decisions. [facility]A is working with family. Orthopedic Exam Vital signs: Temperature 95.9 F L 02/05/18 15:57 Pulse Rate 64 02/05/18 15:57 Respiratory Rate 18 02/05/18 15:57 Blood Pressure 149/69 H 02/05/18 15:57 Pulse Oximetry 97 02/05/18 15:57 - Constitutional General Appearance: Present: alert, no acute distress - Respiratory Exam Present: non-labored - Cardiovascular Exam Present: pedal pulses intact - Extremities Exam Present: pulses intact. Absent: calf tenderness - Hip Exam right Hip Exam: Present: alignment normal - Integumentary Exam Present: pink, warm, dry - Neurological Exam Present: intact to light touch, no deficits - Psychiatric Exam Present: alert - Labs Result Diagrams: 02/07/18 04:16 02/07/18 04:16 H & H 02/07/18 Range/Units 04:16 Hgb 9.2 L (13.5-17.5) GM/DL Hct 29.4 L (41-53) % Orthopedic Assessment and Plan (1) Hip dislocation, right Status: Acute Qualifiers: Encounter type: initial encounter Qualified Code(s): S73.004A - Unspecified dislocation of right hip, initial encounter Assessment and Plan: Mr Foley was taken to the OR on 02/04/18 and 02/06/18 for closed reduction of the right hip under anesthesia. PT/OT harrison work with him on hip precautions and ambulation. He is underwent testing of his cognitive status to see if he is safe to be at home independently. Dr Tejada (neuro-psych consult) has evaluated him and he feels pt is not able to make his own medical decisions due to short term memory loss. [facility]. Please see [facility] notes on this. Hopeful for discharge soon if placement can be arranged. Continue to monitor blood sugars and monitor for constipation. Home meds have been restarted. - Anticoagulation Therapy Anticoagulation: Resume home anticoagulant - Additional Diagnoses Atrial Fibrillation: rate controlled Diabetes: resume oral medications, other (Has been under good control.) CAD: no active chest pain Anemia: no intervention required Hospital Course Summary Disclaimer: The visit summary below is not to be considered part of the above Progress Note.
[2018-02-10] MEDS: ESCITALOPRAM 20 MG TABLET PO SCH (08:28)
[2018-02-10] MEDS: CARVEDILOL 6.25 MG TABLET PO SCH ×2 (08:28→16:59)
[2018-02-10] MEDS: ASPIRIN *EC* 81 MG TABLET PO SCH (08:28)
[2018-02-10] MEDS: POLYETHYL GLYCOL 3350 17gm PACKET PO SCH (08:28)
[2018-02-10] MEDS: CLOPIDOGREL 75 MG TABLET PO SCH (08:28)
[2018-02-10] MEDS: METFORMIN 1,000 MG TABLET PO SCH ×2 (08:28→16:59)
[2018-02-10] MEDS ORDERED: FALL RISK - PHARMACY CONSULT MC ONE (13:05)
[2018-02-10] MEDS: NAPROXEN 220 MG TABLET PO SCH (22:05)
[2018-02-10] MEDS: QUETIAPINE 50 MG TABLET PO SCH (22:05)
[2018-02-10] MEDS: SUCRALFATE 1 GM TABLET PO SCH (22:05)
[2018-02-10] MEDS: RANITIDINE 300 MG TABLET PO SCH (22:05)
[2018-02-11] MEDS: NS 1,000 ML IV SCH (02:16)
--- NOTE | 2018-02-11 08:49 | Orthopedic Progress Note ---
Date: Date: 02/11/18 Time: 845 Subjective/Severity of Illness: Mr. Joyner is lying in bed this morning. He denies any right hip pain. He is eager to go home, though discussed safety concerns. CM currently working on providing patient with guardianship. He is tolerating PO well, currently has maintenance NS. Reports BMs. No CP, SOA , nausea. Orthopedic Exam Vital signs: Temperature 95.9 F L 02/05/18 15:57 Pulse Rate 64 02/05/18 15:57 Respiratory Rate 18 02/05/18 15:57 Blood Pressure 149/69 H 02/05/18 15:57 Pulse Oximetry 97 02/05/18 15:57 - Constitutional General Appearance: Present: alert, no acute distress - Respiratory Exam Present: CTA bilaterally, non-labored - Cardiovascular Exam Present: Regular Rate/Rhythm, pedal pulses intact - Abdominal Exam Present: soft, normoactive BS x4. Absent: tenderness, distended - Extremities Exam Present: pulses intact. Absent: calf tenderness - Hip Exam right Hip Exam: Present: alignment normal - Integumentary Exam Present: pink, warm, dry - Neurological Exam Present: intact to light touch, no deficits - Psychiatric Exam Present: alert - Labs Result Diagrams: 02/07/18 04:16 02/07/18 04:16 H & H 02/07/18 Range/Units 04:16 Hgb 9.2 L (13.5-17.5) GM/DL Hct 29.4 L (41-53) % Orthopedic Assessment and Plan (1) Hip dislocation, right Status: Acute Qualifiers: Encounter type: initial encounter Qualified Code(s): S73.004A - Unspecified dislocation of right hip, initial encounter Assessment and Plan: Mr Foley was taken to the OR on 02/04/18 and 02/06/18 for closed reduction of the right hip under anesthesia. PT/OT harrison work with him on hip precautions and ambulation. He is underwent testing of his cognitive status to see if he is safe to be at home independently. Dr Tejada (neuro-psych consult) has evaluated him and he feels pt is not able to make his own medical decisions due to short term memory loss. CMnotes state he does not want DPOA contacting CM. They are working on obtaining guardianship. Please see CM notes on this. Hopeful for discharge soon if placement can be arranged. Continue to monitor blood sugars and monitor for constipation. Home meds have been restarted. DC NS- tolerating PO well. - Additional Diagnoses Atrial Fibrillation: rate controlled Diabetes: resume oral medications, other (Has been under good control.) CAD: no active chest pain Anemia: no intervention required Hospital Course Summary Disclaimer: The visit summary below is not to be considered part of the above Progress Note.
[2018-02-11] MEDS: ASPIRIN *EC* 81 MG TABLET PO SCH (09:25)
[2018-02-11] MEDS: POLYETHYL GLYCOL 3350 17gm PACKET PO SCH (09:25)
[2018-02-11] MEDS: METFORMIN 1,000 MG TABLET PO SCH ×2 (09:25→18:21)
[2018-02-11] MEDS: CARVEDILOL 6.25 MG TABLET PO SCH ×2 (09:25→18:21)
[2018-02-11] MEDS: CLOPIDOGREL 75 MG TABLET PO SCH (09:25)
[2018-02-11] MEDS: ESCITALOPRAM 20 MG TABLET PO SCH (09:25)
--- NOTE | 2018-02-11 17:05 | Internal Medicine Consult Note ---
Internal Medicine HPI - Data of Consult Patient: known to practice within the last 3 years Consult date: 02/11/18 Requesting Physician: Dell Gaming MD Primary Care Provider: Jere Lewis DO - Consult Narrative Reason for consult: anemia History of present illness: Mr. Mahajan is a patient well-known to me from my clinical practice at [facility]. He was admitted recently by or so due to a dislocated right hip. This is a prosthetic right hip that he states became dislocated upon rising from a commode. While in the hospital, he was working with physical therapy when he had a recurrence of the dislocation. His hemoglobin is 9.2. He has also recently been seen for a neuropsych eval. Patient denies any bright red blood per rectum or melena further denies any epigastric pain or chronic use of NSAIDs. Review of Systems - Constitutional Constitutional: Present: lethargy, weakness. Absent: chills, fever(s), night sweats - Cardiovascular Cardiovascular: Present: dyspnea on exertion, edema. Absent: chest pain, palpitations, syncope - Respiratory Respiratory: Present: dyspnea on exertion - Gastrointestinal Gastrointestinal: Absent: abdominal pain, change in bowel habits, change in stool character, coffee ground emesis, hematemesis, hematochezia, melena, nausea , vomiting - Genitourinary Genitourinary: Absent: hematuria - Musculoskeletal Musculoskeletal: Present: limited range of motion - Integumentary/Breasts Integumentary: Absent: erythema, pruritus, wounds, jaundice - Neurological Neurological: Present: confusion, memory loss, weakness - Psychiatric Psychiatric: Present: depression. Absent: anxiety, panic attacks - Endocrine Endocrine: Absent: cold intolerance, excessive sweating - Hematologic/Lymphatic Hematologic/Lymphatic: Absent: easy bleeding, easy bruising, lymphadenopathy FOR[facility]LY [facility] Patient Stated Medical History Cerebrovascular Accident Yes: TIA Hearing Loss Yes: wears hearing aids Coronary Artery Disease Yes: s/p stent in 2014, asymptomatic since Hypertension Yes Myocardial Infarction Yes: 2015, stent placed Valvular Heart Disease Yes Chronic Obstructive Pulmonary Yes: long history of tobacco abuse Disease (COPD) Pneumonia Yes Sleep Apnea Yes: cpap Diabetes Mellitus Type 2 Yes Gastroesophageal Reflux Yes Disease Ulcer Yes Hx Incontinence Yes Anemia Yes Other Musculoskeletal Yes: history of dimentia Anesthesia Reactions No Blood Transfusions No Chemotherapy No Malignant Hyperthermia No Other No Now No Clinic Medical History (Last Reviewed 08/13/17 @ 13:13 by Mateo Xavier MD) 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 Rt VAIBHAV Family History: Family History (Last Reviewed 08/13/17 @ 13:13 by Mateo Xavier MD) Mother Arthritis Sister High blood pressure High cholesterol - Social History Smoking status: Former smoker Packs per day: 1.5 Packs-years: 62 second hand exposure: No Substance use type: does not use Alcohol intake frequency: does not drink Housing: house Household members: none Current occupational status: retired Does patient use chewing tobacco?: No Current residence: Apartment/Private Home Medications Home Medications Medication Instructions Recorded Confirmed Type raNITIdine HCl [Ranitidine HCl] 300 mg PO HS #0 05/04/10 02/04/18 History Metformin HCl 1,000 mg PO BID #0 03/28/16 02/04/18 History Carvedilol 6.25 mg PO BID #0 11/11/16 02/04/18 History Aspirin *EC* [Ecotrin] 81 mg PO DAILY 03/27/17 02/04/18 History Oxybutynin Chloride [Ditropan Xl] 10 mg PO DAILY 04/22/17 02/04/18 History Quetiapine [Seroquel] 50 mg PO HS #30 tab 05/06/17 02/04/18 Rx Acetaminophen [Tylenol] 500 - 1,000 mg PO Q8H PRN #100 tab 02/04/18 Rx Clopidogrel Bisulfate [Clopidogrel] 75 mg PO DAILY 02/04/18 02/04/18 History Escitalopram [Lexapro] 20 mg PO DAILY 02/04/18 02/04/18 History Naproxen Sodium [Aleve] 220 mg PO HS 02/04/18 02/04/18 History Sucralfate [Carafate] 1 gm PO HS 02/04/18 02/04/18 History Allergies Allergy/AdvReac Type Severity Reaction Status Date / Time hydrocodone AdvReac Unknown Confusion Verified 02/04/18 11:06 oxycodone AdvReac Unknown Confusion Verified 02/04/18 11:06 Exam Vital signs: Temperature 96.3 F L 02/11/18 16:32 Pulse Rate 65 02/11/18 16:32 Respiratory Rate 20 02/11/18 16:32 Blood Pressure 149/71 H 02/11/18 16:32 Pulse Oximetry 98 02/11/18 16:32 - Constitutional no acute distress, cooperative - Routine HEENT Exam Head: Present: normocephalic, atraumatic Eye: Present: EOMI, PERRL. Absent: conjunctival icterus, scleral injection, conjunctivae pink ENT: Present: mucous membranes moist, oropharynx clear Throat: normal inspection - Routine Neck Exam Present: supple. Absent: JVD, carotid bruit - Routine Chest/Breast/Axilla Exam Chest wall: Absent: tenderness Axillae: Absent: lymphadenopathy - Routine Respiratory Exam Present: CTA bilaterally. Absent: accessory muscle use - Routine Cardiovascular Exam Present: RRR, no murmur. Absent: S3, S4 - Routine Abdominal Exam Present: soft, normoactive bowel sounds, non distended, non tender - Routine Extremities Exam Present: edema, tenderness (right hip). Absent: clubbing - Routine Skin Exam Present: intact, pallor. Absent: cyanosis, mottling, petechiae, urticaria, jaundice - Routine Neurological Exam Present: oriented X3, CN II-XII intact. Absent: alert - Routine Psychiatric Exam Present: cooperative, depressed. Absent: good insight, good judgment Internal Medicine Results - Labs CBC & Chem 7: 02/07/18 04:16 02/07/18 04:16 Assessment and Plan - Assessment and Plan (1) Anemia Current visit: Yes Status: Acute Microcytic anemia. Most likely etiology is iron deficiency versus anemia of chronic disease. I will check his iron studies including ferritin level and a peripheral smear. (2) Dementia Current visit: No Status: Chronic (3) Hip dislocation, right Current visit: Yes Status: Acute (4) Instability of hip joint Problem details: Right Current visit: No Status: Chronic (5) Status post total hip replacement, right Problem details: symptoms of subluxation or dislocation Current visit: No Status: Chronic (6) Depression Current visit: No Status: Chronic (7) Diabetes Current visit: No Status: Chronic (8) H/O heart artery stent Current visit: No Status: Chronic (9) Coronary artery disease Current visit: No Status: Chronic
[2018-02-11] MEDS: SUCRALFATE 1 GM TABLET PO SCH (21:27)
[2018-02-11] MEDS: RANITIDINE 300 MG TABLET PO SCH (21:27)
[2018-02-11] MEDS: NAPROXEN 220 MG TABLET PO SCH (21:27)
[2018-02-11] MEDS: QUETIAPINE 50 MG TABLET PO SCH (21:27)
--- NOTE | 2018-02-12 08:36 | Orthopedic Progress Note ---
Date: Date: 02/12/18 Time: 832 Subjective/Severity of Illness: Jonathan is laying in bed this morning. He is eager for discharge, and states he "wants to go home, I will be fine". Discussed concerns for safety and CM continues to work on [employer]. Discussed with CM, patient ambulated in halls yesterday but requires a lot of assistance to stand from the chair. Denies any hip pain, soa, cp, nausea. Is having BMs, no abdominal pain. Orthopedic Exam Vital signs: Temperature 95.9 F L 02/05/18 15:57 Pulse Rate 64 02/05/18 15:57 Respiratory Rate 18 02/05/18 15:57 Blood Pressure 149/69 H 02/05/18 15:57 Pulse Oximetry 97 02/05/18 15:57 - Constitutional General Appearance: Present: alert, no acute distress - Respiratory Exam Present: CTA bilaterally, non-labored - Cardiovascular Exam Present: Regular Rate/Rhythm, pedal pulses intact - Abdominal Exam Present: soft, normoactive BS x4. Absent: tenderness, distended - Extremities Exam Present: clubbing - Hip Exam right Hip Exam: Present: alignment normal - Integumentary Exam Present: pink, warm, dry - Neurological Exam Present: intact to light touch, no deficits - Psychiatric Exam Present: alert - Labs Result Diagrams: 02/11/18 17:57 02/07/18 04:16 Abnormal lab results 02/11/18 02/11/18 Range/Units 17:57 17:57 RBC 3.95 L (4.50-5.90) M/MM3 Hgb 9.6 L (13.5-17.5) GM/DL Hct 30.6 L (41-53) % MCV 77.5 L (80-100) UM3 MCH 24.3 L (26-34) UUG MPV 9.0 L (9.4-12.4) UM3 Mccracken % (Auto) 9.2 H (0-9.0) % Eos % (Auto) 4.2 H (0-4) % Retic Hgb Content CHr 26.0 L (30.8-36.6) PG Iron 34 L (49-181) ug/dL % Saturation 9 L (13-59) % H & H 02/07/18 02/11/18 Range/Units 04:16 17:57 Hgb 9.2 L 9.6 L (13.5-17.5) GM/DL Hct 29.4 L 30.6 L (41-53) % Orthopedic Assessment and Plan (1) Hip dislocation, right Status: Acute Qualifiers: Encounter type: initial encounter Qualified Code(s): S73.004A - Unspecified dislocation of right hip, initial encounter Assessment and Plan: Mr Foley was taken to the OR on 02/04/18 and 02/06/18 for closed reduction of the right hip under anesthesia. PT/OT harrison work with him on hip precautions and ambulation. He is underwent testing of his cognitive status to see if he is safe to be at home independently. Dr Tejada (neuro-psych consult) has evaluated him and he feels pt is not able to make his own medical decisions due to short term memory loss. Refer to CM notes, attempting to obtain guardianship. Hopeful for discharge soon if placement can be arranged. Dr. James (PCP) consulted yesterday, managing medically. - Additional Diagnoses Atrial Fibrillation: rate controlled Diabetes: resume oral medications, other (Has been under good control.) CAD: no active chest pain Anemia: no intervention required Hospital Course Summary Disclaimer: The visit summary below is not to be considered part of the above Progress Note.
[2018-02-12] MEDS: ASPIRIN *EC* 81 MG TABLET PO SCH (10:23)
[2018-02-12] MEDS: ACETAMINOPHEN 500 MG TABLET PO PRN (10:24)
[2018-02-12] MEDS: CLOPIDOGREL 75 MG TABLET PO SCH (10:24)
[2018-02-12] MEDS: METFORMIN 1,000 MG TABLET PO SCH ×2 (10:24→17:54)
[2018-02-12] MEDS: CARVEDILOL 6.25 MG TABLET PO SCH ×2 (10:25→17:54)
[2018-02-12] MEDS: ESCITALOPRAM 20 MG TABLET PO SCH (10:25)
[2018-02-12] MEDS: POLYETHYL GLYCOL 3350 17gm PACKET PO SCH (10:26)
[2018-02-12] MEDS ORDERED: FERRIC CARBOXYMALTOSE IV ONE (13:40)
[2018-02-12] MEDS ORDERED: NS IV ONE (13:40)
[2018-02-12] MEDS ORDERED: FERRIC CARBOXYMALTOSE 750 MG in NS 250ml 250 ML IV ONE (14:00)
--- NOTE | 2018-02-12 14:50 | XRay Report ---
Indication: Increased pain in hip PROCEDURE: XR pelvis w/ 2 view RT hip: Encounter: Initial Comparison: February 06, 2018 Findings: Recurrent dislocation of the femoral component of the right total hip prosthesis. No acute fracture seen. The femoral component is dislocated superiorly and posteriorly. Impression: Recurrent dislocation of the right femoral component. .
--- NOTE | 2018-02-12 15:44 | Anesthesia Preoperative Report ---
Anesthesia Preoperative Record - Date and Time Date: 02/12/18 Preoperative Diagnosis: Right Prosthetic Hip Dislocation Proposed Procedure: closed reduction of hip NPO Since Date: 02/12/18 NPO Since Time: 13:30 Allergies/Adverse Reactions: Allergies Allergy/AdvReac Type Severity Reaction Status Date / Time hydrocodone AdvReac Unknown Confusion Verified 02/04/18 11:06 oxycodone AdvReac Unknown Confusion Verified 02/04/18 11:06 - Vital Signs Vital Signs: Temperature 96.2 F L 02/12/18 15:16 Pulse Rate 61 02/12/18 15:16 Respiratory Rate 18 02/12/18 15:16 Blood Pressure 159/71 H 02/12/18 15:16 Pulse Oximetry 95 02/12/18 15:16 Height and Weight: Weight 104 kg - Medications Inpatient Medications: Current Medications Acetaminophen (Tylenol) 500 - 1,000 mg PO Q6H PRN PRN Reason: Pain Last Admin: 02/12/18 10:24 Dose: 1,000 mg Aspirin (Ecotrin) 81 mg PO DAILY [facility] Last Admin: 02/12/18 10:23 Dose: 81 mg Carvedilol (Coreg) 6.25 mg PO BIDWM [facility] Last Admin: 02/12/18 10:25 Dose: 6.25 mg Clopidogrel Bisulfate (Plavix) 75 mg PO DAILY [facility] Last Admin: 02/12/18 10:24 Dose: 75 mg Escitalopram Oxalate (Lexapro) 20 mg PO DAILY [facility] Last Admin: 02/12/18 10:25 Dose: 20 mg Magnesium Hydroxide (Mom) 30 ml PO DAILY PRN PRN Reason: Constipation Metformin HCl (Glucophage) 1,000 mg PO BIDWM [facility] Last Admin: 02/12/18 10:24 Dose: 1,000 mg Naproxen (Aleve (Naproxen) 220 Mg) 220 mg PO [facility] Last Admin: 02/11/18 21:27 Dose: 220 mg Oxybutynin Chloride (Ditropan Xl) 10 mg PO DAILY [facility] Last Admin: 02/12/18 10:25 Dose: 10 mg Polyethylene Glycol (Miralax) 17 gm PO DAILY [facility] Last Admin: 02/12/18 10:26 Dose: Not Given Quetiapine Fumarate (Seroquel) 50 mg PO [facility] Last Admin: 02/11/18 21:27 Dose: 50 mg Ranitidine HCl (Zantac) 300 mg PO [facility] Last Admin: 02/11/18 21:27 Dose: 300 mg Sucralfate (Carafate) 1 gm PO [facility] Last Admin: 02/11/18 21:27 Dose: 1 gm Home Medications: Home Medications Medication Instructions Recorded Confirmed Type raNITIdine HCl [Ranitidine HCl] 300 mg PO HS #0 05/04/10 02/04/18 History Metformin HCl 1,000 mg PO BID #0 03/28/16 02/04/18 History Carvedilol 6.25 mg PO BID #0 11/11/16 02/04/18 History Aspirin *EC* [Ecotrin] 81 mg PO DAILY 03/27/17 02/04/18 History Oxybutynin Chloride [Ditropan Xl] 10 mg PO DAILY 04/22/17 02/04/18 History Quetiapine [Seroquel] 50 mg PO HS #30 tab 05/06/17 02/04/18 Rx Acetaminophen [Tylenol] 500 - 1,000 mg PO Q8H PRN #100 tab 02/04/18 Rx Clopidogrel Bisulfate [Clopidogrel] 75 mg PO DAILY 02/04/18 02/04/18 History Escitalopram [Lexapro] 20 mg PO DAILY 02/04/18 02/04/18 History Naproxen Sodium [Aleve] 220 mg PO HS 02/04/18 02/04/18 History Sucralfate [Carafate] 1 gm PO HS 02/04/18 02/04/18 History Is Patient on Beta Yang?: Yes Beta Yang Last Dose Date/Time: 02/04/18 @ 0800 - Medical History Respiratory: Reports: Chronic Obstructive Pulmonary Disease (COPD) (long history of tobacco abuse), Dyspnea, Pneumonia, Sleep Apnea (cpap) Cardiovascular: Reports: Abnormal EKG, Coronary Artery Disease (s/p stent in 2014, asymptomatic since), Hypertension, Myocardial Infarction (2014, stent placed ), Valvular Heart Disease Gastrointestional: Reports: Gastroesophageal Reflux Disease, Ulcer DENIES: Nausea or Vomiting Present Neuro/Musculoskeletal: Reports: Back Problems, Cerebrovascular Accident (TIA ), Muscle Weakness, Other (history of dimentia) Renal/Endocrine: Reports: Diabetes Mellitus Type 2 Other History: DENIES: Anesthesia Reactions, Now, Blood Transfusions, Chemotherapy , Cancer, Hemophilia, Malignant Hyperthermia, Sickle Cell Disease, Other - Surgical History Neurological Surgeries: Reports: Other (lumbar back surgery; vertebroplasty) HEENT Surgeries: Reports: Eye Surgery (Cataract OU) Cardiac Surgeries/Treatments: Reports: Cardiac Catheterization (with stent 08-14 ) Respiratory Surgery/Treatments: Reports: CPAP Use, Other (Thoracentesis) Musculoskeletal Surgery/Tx: Reports: Carpal Tunnel Release (Aamir), Joint Surgery , Shoulder Arthroscopy (Aamir RCR), Total Hip Replacement (Right), Total Knee Replacement Anesthesia Reactions: None Hx Family Anesthesia Reaction: No History of Motion Sickness: No - Social History Smoking Status: Former smoker Packs per day: 1.5 Pack-years: 62 Hx Chewing Tobacco Use: No Second Hand Exposure: No Substance Use Type: does not use Alcohol Intake Frequency: does not drink - Pertinent Findings Laboratory: CBC and BMP 02/11/18 17:57 02/07/18 04:16 EKG: Sinus Rhythm EKG Ectopy: Bundle Branch Block - Physical Exam Respiratory Exam: Present: lungs clear, bilateral breath sounds equal Cardiovascular Exam: Present: regular rate and rhythm - Airway Assessment Mallampati Score: II TMD: 3 Fingerbreadths Neck Extension: fair Teeth: upper dentures, lower dentures Overall Assessment: no airway concerns - ASA ASA Score: 4, E - Plan Anesthesia: General Inhalation Gases, Other (RSI) - Discussion Discussion: Discussed risks/options/alternatives of anesthesia and questions answered. Patient consents. Nursing pain assessment noted. Attestation Statement: Prior to the delivery of any anesthetic medication, I examined the patient, developed the plan, obtained the patient's consent and discussed the risk and benefits of the procedure with the patient/guardian. - Additional Information Comments: Dr. Gaming declaring procedure and emergency. Dr. Gaming and patient aware of high risk of aspiration which could lead to . Both patient and Dr. Gaming aware of risk and would like to proceed now. Unable to do spinal due to plavix use.
[2018-02-12] MEDS ORDERED: FentaNYL 250 MCG/5 ML INJECTION ONE (15:54)
[2018-02-12] MEDS ORDERED: SUCCINYLCHOLINE 20mg/mL 10mL INJECTION ONE (15:55)
[2018-02-12] MEDS ORDERED: PROPOFOL 20 ML ONE (15:55)
[2018-02-12] MEDS ORDERED: LIDOCAINE 2% (100mg/5mL) 5ml PF SDV ONE (15:55)
[2018-02-12] MEDS ORDERED: ROCURONIUM 50 MG/5 ML INJECTION IVP ONE (15:55)
[2018-02-12] MEDS ORDERED: NS 1,000 ML IV SCH (16:00)
--- NOTE | 2018-02-12 16:18 | Anesthesia Postoperative Note ---
- Date and Time Date: 02/12/18 Time: 16:25 - Status Patient Participated in Evaluation: Patient Participated in Person Vital Signs: Temperature 96.2 F L 02/12/18 15:16 Pulse Rate 61 02/12/18 15:35 Respiratory Rate 16 02/12/18 15:35 Blood Pressure 177/74 H 02/12/18 15:35 Pulse Oximetry 95 02/12/18 15:16 Respiratory Function: Airway Patent Cardiovascular Function: Regular Pulse EKG: Sinus Rhythm EKG Ectopy: Bundle Branch Block Mental Status: Alert and Oriented Pain Intensity: 0 Hydration: IV Infusing Complications During Recover: None Apparent - Follow-Up Instructions Instructions: Per Surgeon
--- NOTE | 2018-02-12 17:57 | Remote Fluorsocopy Report ---
Indication: Closed reduction right hip PROCEDURE: RF hip RT 1 view: Encounter: Initial Comparison: Radiographs from today Findings: Single fluoroscopic spot image shows reduction of the right femoral component dislocation. Impression: Fluoroscopy as above. Fluoroscopy time is 24 seconds. Fluoroscopy dose is 684.4 mRad. .
[2018-02-12] MEDS: SUCRALFATE 1 GM TABLET PO SCH (20:22)
[2018-02-12] MEDS: RANITIDINE 300 MG TABLET PO SCH (20:22)
[2018-02-12] MEDS: QUETIAPINE 50 MG TABLET PO SCH (20:22)
[2018-02-12] MEDS: NAPROXEN 220 MG TABLET PO SCH (20:22)
[2018-02-12] MEDS: SALINE FLUSH 10ml SYRINGE IV PRN (23:15)
--- NOTE | 2018-02-13 08:00 | Operative Note ---
DATE OF PROCEDURE 02/12/2018 PREOPERATIVE DIAGNOSIS Right hip prosthetic dislocation. POSTOPERATIVE DIAGNOSIS Right hip prosthetic dislocation. PROCEDURE Closed reduction of right hip prosthetic dislocation. SURGEON Dell Gaming MD ANESTHESIA General endotracheal tube anesthetic. DESCRIPTION OF PROCEDURE Mr. Mahajan and his right hip were identified and marked in the preoperative holding area. He was brought back to the operating suite and he was placed under general anesthesia. He was intubated. He was then moved to the OR table. Time-out was performed and I performed a reduction maneuver to the right hip with traction, flexion of the hip and internal rotation in which I was able to reduce the hip. This was confirmed on fluoroscopic imaging. He was then placed in a knee immobilizer and allowed to awaken from general anesthesia and extubated. He tolerated the procedure well. There were no complications. ELI
--- NOTE | 2018-02-13 08:04 | Orthopedic Progress Note ---
Date: Date: 02/13/18 Time: 801 Subjective/Severity of Illness: Mr. Joyner is doing well this morning, underwent closed reduction of right total hip (3rd event) yesterday afternoon. Abductor pillow in place, denies any pain. No CP, SOA, nausea. Reports BMs. continues to work on guardianship. Orthopedic Exam Vital signs: Temperature 95.9 F L 02/05/18 15:57 Pulse Rate 64 02/05/18 15:57 Respiratory Rate 18 02/05/18 15:57 Blood Pressure 149/69 H 02/05/18 15:57 Pulse Oximetry 97 02/05/18 15:57 - Constitutional General Appearance: Present: alert, no acute distress - Respiratory Exam Present: non-labored - Cardiovascular Exam Present: pedal pulses intact - Abdominal Exam Present: soft. Absent: tenderness, distended - Extremities Exam Present: pulses intact - Dressing Dressing: dry, intact, no drainage - Hip Exam right Hip Exam: Present: alignment normal - Integumentary Exam Present: pink, warm, dry - Neurological Exam Present: intact to light touch, no deficits - Psychiatric Exam Present: alert - Labs Result Diagrams: 02/11/18 17:57 02/07/18 04:16 H & H 02/07/18 02/11/18 Range/Units 04:16 17:57 Hgb 9.2 L 9.6 L (13.5-17.5) GM/DL Hct 29.4 L 30.6 L (41-53) % Orthopedic Assessment and Plan (1) Hip dislocation, right Status: Acute Qualifiers: Encounter type: initial encounter Qualified Code(s): S73.004A - Unspecified dislocation of right hip, initial encounter Assessment and Plan: Mr Foley was taken to the OR on 02/04/18, 02/06/18, 02/12/18 for closed reduction of the right hip under anesthesia. Dr. Gaming is out of town for next couple of days, need time for surgical planning and transportation of implants to our facility for revision of right VAIBHAV. He is not safe to leave hospital due to high risk of recurring dislocations. PT/OT continue to work with him on hip precautions and ambulation. Refer to notes, attempting to obtain guardianship. Hopeful for discharge soon if placement can be arranged. Dr. James (PCP) consulted yesterday, managing medically. - Additional Diagnoses Atrial Fibrillation: rate controlled Diabetes: resume oral medications, other (Has been under good control.) CAD: no active chest pain Anemia: no intervention required Hospital Course Summary Disclaimer: The visit summary below is not to be considered part of the above Progress Note.
[2018-02-13] MEDS: CLOPIDOGREL 75 MG TABLET PO SCH (08:06)
[2018-02-13] MEDS: ASPIRIN *EC* 81 MG TABLET PO SCH (08:06)
[2018-02-13] MEDS: METFORMIN 1,000 MG TABLET PO SCH ×2 (08:06→18:44)
[2018-02-13] MEDS: CARVEDILOL 6.25 MG TABLET PO SCH ×2 (08:07→18:44)
[2018-02-13] MEDS: ESCITALOPRAM 20 MG TABLET PO SCH (08:07)
[2018-02-13] MEDS: POLYETHYL GLYCOL 3350 17gm PACKET PO SCH (08:07)
[2018-02-13] MEDS: NAPROXEN 220 MG TABLET PO SCH (20:47)
[2018-02-13] MEDS: QUETIAPINE 50 MG TABLET PO SCH (20:47)
[2018-02-13] MEDS: SUCRALFATE 1 GM TABLET PO SCH (20:47)
[2018-02-13] MEDS: RANITIDINE 300 MG TABLET PO SCH (20:48)
[2018-02-14] MEDS: POLYETHYL GLYCOL 3350 17gm PACKET PO SCH (08:18)
[2018-02-14] MEDS: METFORMIN 1,000 MG TABLET PO SCH ×2 (08:18→17:35)
[2018-02-14] MEDS: CARVEDILOL 6.25 MG TABLET PO SCH ×2 (08:18→17:35)
[2018-02-14] MEDS: ASPIRIN *EC* 81 MG TABLET PO SCH (08:19)
[2018-02-14] MEDS: ESCITALOPRAM 20 MG TABLET PO SCH (08:19)
[2018-02-14] MEDS: CLOPIDOGREL 75 MG TABLET PO SCH (08:19)
[2018-02-14] MEDS ORDERED: FUROSEMIDE 20 MG/2 ML INJECTION IVP ONE (12:58)
[2018-02-14] MEDS ORDERED: NS FLUSH BAG 500ml IV PRN (12:58)
--- NOTE | 2018-02-14 14:26 | Orthopedic Progress Note ---
Date: Date: 02/14/18 Time: 1420 Subjective/Severity of Illness: Jonathan is seen on morning rounds. He is not having much pain. Discussed options of bracing vs surgical revision. He doesn't know what he wants to do. Psych eval suggested he is not competent to make his own medical decisions. CM is looking into our options on this. No new complaints or concerns. Orthopedic Exam Vital signs: Temperature 95.9 F L 02/05/18 15:57 Pulse Rate 64 02/05/18 15:57 Respiratory Rate 18 02/05/18 15:57 Blood Pressure 149/69 H 02/05/18 15:57 Pulse Oximetry 97 02/05/18 15:57 - Constitutional General Appearance: Present: alert, no acute distress - Respiratory Exam Present: non-labored - Cardiovascular Exam Present: pedal pulses intact - Extremities Exam Present: pulses intact. Absent: calf tenderness - Hip Exam right Hip Exam: Present: alignment normal, other (Leg length looks normal.) - Integumentary Exam Present: pink, warm, dry - Neurological Exam Present: intact to light touch, no deficits - Psychiatric Exam Present: alert, oriented - Labs Result Diagrams: 02/14/18 13:13 02/07/18 04:16 Abnormal lab results 02/14/18 02/14/18 02/14/18 Range/Units 04:09 13:13 13:13 RBC 3.57 L 4.02 L (4.50-5.90) M/MM3 Hgb 8.7 L 9.8 L D (13.5-17.5) GM/DL Hct 27.9 L 31.5 L D (41-53) % MCV 78.2 L 78.4 L (80-100) UM3 MCH 24.4 L 24.4 L (26-34) UUG Immature Gran % (Auto) 0.6 H (0.0-0.5) % Davis % (Auto) 9.8 H (0-9.0) % Abs Immat Gran (auto) 0.04 H (0.00-0.03) T/MM3 Retic Hgb Content CHr 27.4 L (30.8-36.6) PG Crossmatch (AHG) See Detail H & H 02/14/18 02/14/18 Range/Units 04:09 13:13 Hgb 8.7 L 9.8 L D (13.5-17.5) GM/DL Hct 27.9 L 31.5 L D (41-53) % Orthopedic Assessment and Plan (1) Hip dislocation, right Status: Acute Qualifiers: Encounter type: initial encounter Qualified Code(s): S73.004A - Unspecified dislocation of right hip, initial encounter Assessment and Plan: Mr Foley was taken to the OR on 02/04/18, 02/06/18 & 02/12/18 for closed reduction of the right hip under anesthesia. Dr. Gaming is out of town for next couple of days. CM is looking into appropriate way to get consent for hip revision. Pt is not able to make the decision for himself. We need time for surgical planning and transportation of implants to our facility if revision of right VAIBHAV is going to take place. He is not safe to leave hospital due to high risk of recurring dislocations. Current staff is well educated on precautions and txfr to a NH would just increase his risk of another dislocation. Will continue the wedge pillow and straight leg immobilizer to minimize his risk. PT/OT continue to work with him on hip precautions and ambulation. Refer to CM notes, attempting to obtain guardianship. Dr. James (PCP) consulted yesterday, managing medically. I have ask the nurse to contact Dr Lewis to evaluate Mr Folye for surgical clearance. I will stop the Plavix for now with anticipation of surgical revision on Saturday , 02/25/18. - Additional Diagnoses Atrial Fibrillation: rate controlled Diabetes: resume oral medications, other (Has been under good control.) CAD: no active chest pain Anemia: no intervention required Hospital Course Summary Disclaimer: The visit summary below is not to be considered part of the above Progress Note.
[2018-02-14] MEDS: AMLODIPINE 5 MG TABLET PO SCH (18:18)
[2018-02-14] MEDS: NAPROXEN 220 MG TABLET PO SCH (21:48)
[2018-02-14] MEDS: QUETIAPINE 50 MG TABLET PO SCH (21:49)
[2018-02-14] MEDS: SUCRALFATE 1 GM TABLET PO SCH (21:49)
[2018-02-14] MEDS: RANITIDINE 300 MG TABLET PO SCH (21:49)
[2018-02-15] MEDS: ESCITALOPRAM 20 MG TABLET PO SCH (10:07)
[2018-02-15] MEDS: AMLODIPINE 5 MG TABLET PO SCH (10:08)
[2018-02-15] MEDS: METFORMIN 1,000 MG TABLET PO SCH ×2 (10:08→19:34)
[2018-02-15] MEDS: CARVEDILOL 6.25 MG TABLET PO SCH ×2 (10:08→19:34)
[2018-02-15] MEDS: ASPIRIN *EC* 81 MG TABLET PO SCH (10:08)
[2018-02-15] MEDS: POLYETHYL GLYCOL 3350 17gm PACKET PO SCH (10:10)
--- NOTE | 2018-02-15 17:26 | Progress Note ---
- Date 02/15/18 Subjective: Patient seen in coverage for Dr Lewis. Jonathan is seen while sitting in his recliner, watching TV. He denies any complaints or concerns. No chest pain, shortness of breath, abdominal pain, nausea, vomiting or diarrhea. He admits that he hasn't had much of an appetite today and does not believe he has had a BM in several days. Nursing notes indicate that he had a BM 2 days ago. 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 He was seen and evaluated by Dr. Tejada ( psych) who did not feel that Jonathan is competent to make his own medical decisions, thus prolonging the plan of care as case management looks into options for a guardian or DPOA. Case management is working on an appropriate way to gain consent for a hip revision. He is not safe to leave the hospital due to high risk of recurring dislocations and increased risk if he were to be transferred to a shelter as the nursing staff at [facility] is well educated on the precautions needed. Objective Vital signs: Temperature 96.6 F L 02/15/18 16:36 Pulse Rate 65 02/15/18 16:36 Respiratory Rate 16 02/15/18 16:36 Blood Pressure 144/67 H 02/15/18 16:36 Pulse Oximetry 95 02/15/18 16:36 Height/Weight/BMI: Weight 221 lb 1.978 oz Comments: Sitting in recliner, watching TV. - Constitutional Present: no acute distress, well nourished, well developed, cooperative - Routine HEENT Exam Head: Present: normocephalic, atraumatic Eye: Present: PERRL. Absent: conjunctival icterus ENT: Present: mucous membranes moist, oropharynx clear - Routine Respiratory Exam Present: CTA bilaterally. Absent: respiratory distress, wheezes - Routine Cardiovascular Exam Present: RRR, S1, S2 - Routine Abdominal Exam Present: soft, normoactive bowel sounds, non tender - Routine Extremities Exam Present: no edema, pulses intact - Routine Back/Spine/Pelvis Exam Comments: Limited exam. - Routine Musculoskeletal Exam Musculoskeletal: Present: no clubbing or cyanosis - Routine Skin Exam Present: dry, warm Comments: Afebrile. 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 Anemia. Dementia. Osteoarthritis. Depression and anxiety. Diabetes. Hypertension. Hyperlipidemia. History of [place] with stent placement. CAD. Plan - Covering for Dr Lewis Recurrent dislocations to right hip despite being taken to the OR on 02/04, 02/06 and 02/12 for close reductions - unsuccessful. Psychiatric evaluation suggested that the patient is not competent to make his own medication decisions. Case management is working on obtaining a guardian for the patient for consent to do a hip revision. Patient remains at high risk for recurrent dislocation, especially if transferred to shelter as [facility] nursing staff is well educated on precautions. Continue with current cares. Continue wedge pillow and straight leg immobilizer to minimize risk. Plan to stop Plavix on 02/24 in anticipation of surgery for 02/24 assuming consent can be obtained. Encourage participation in therapies to work with him on precautions and ambulation. Continue with bowel motivation. Recheck labs in AM to monitor blood counts, electrolytes and renal function. DVT Prophylaxis: SCD's GI Prophylaxis: Rantidine Resuscitation Status: Full Code - Time spent with patient Time with patient PN: 30 minutes - Physician Narrative Physician: Chalino Puckett MD Narrative: Date: 02/15/18 Time: 1957 Have independently interviewed and examined pt. Chart reviewed. Case discussed with my PA. Care plan developed with my supervision; agree with above. Doing well today. No new concerns. Breathing well. No nausea. Pain controlled. Lungs: clear bilaterally CV: regular AB: soft nt/nd MSE: awake alert Plan: Continue wit supportive care. Medically doing well. Hospital Course Summary Disclaimer: The visit summary below is not to be considered part of the above Progress Note. 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 Psychiatric evaluation suggested that the patient is not competent to make his own medication decisions. Case management is working on obtaining a guardian for the patient for consent to do a hip revision. Patient remains at high risk for recurrent dislocation, especially if transferred to shelter as [facility] nursing staff is well educated on precautions. Continue with current cares. Continue wedge pillow and straight leg immobilizer to minimize risk. Plan to stop Plavix on 02/24 in anticipation of surgery for 02/24 assuming consent can be obtained. Encourage participation in therapies to work with him on precautions and ambulation. Continue with bowel motivation. Recheck labs in AM to monitor blood counts, electrolytes and renal function.
[2018-02-15] MEDS: RANITIDINE 300 MG TABLET PO SCH (20:43)
[2018-02-15] MEDS: QUETIAPINE 50 MG TABLET PO SCH (20:43)
[2018-02-15] MEDS: NAPROXEN 220 MG TABLET PO SCH (20:43)
[2018-02-15] MEDS: SENNA + DOCUSATE TABLET PO SCH (20:44)
[2018-02-15] MEDS: SUCRALFATE 1 GM TABLET PO SCH (20:44)
[2018-02-16] MEDS ORDERED: IRON - PHARMACY CONSULT MC ONE (08:00)
[2018-02-16] MEDS ORDERED: FERRIC CARBOXYMALTOSE 750 MG in NS 250ml 250 ML IV ONE (08:15)
[2018-02-16] MEDS: METFORMIN 1,000 MG TABLET PO SCH ×2 (08:35→17:06)
[2018-02-16] MEDS: CARVEDILOL 6.25 MG TABLET PO SCH ×2 (08:35→17:06)
[2018-02-16] MEDS: POLYETHYL GLYCOL 3350 17gm PACKET PO SCH (08:35)
[2018-02-16] MEDS: AMLODIPINE 5 MG TABLET PO SCH (08:35)
[2018-02-16] MEDS: ESCITALOPRAM 20 MG TABLET PO SCH (08:35)
[2018-02-16] MEDS: ASPIRIN *EC* 81 MG TABLET PO SCH (08:35)
[2018-02-16] MEDS: SENNA + DOCUSATE TABLET PO SCH ×2 (08:38→21:01)
--- NOTE | 2018-02-16 08:46 | Pharmacy Consult ---
Pharmacy Consult-[facility] - Laboratory Information [facility] 02/14/18 02/14/18 02/14/18 04:09 13:13 17:37 Hgb 8.7 L 9.8 L D 10.6 L Hct 27.9 L 31.5 L D 02/14/18 02/16/18 21:43 04:34 Hgb 10.9 L 10.7 L Hct 33.3 L - Consult Information [facility] consult noted by Karmen LEYVA for Mr DeepClementePiotr. Injectafer was given on . The soonest we can repeat a dose is 02/19/18. A repeat dose was ordered today for that date. Thank you.
--- NOTE | 2018-02-16 10:37 | Orthopedic Progress Note ---
Date: Date: 02/16/18 Time: 1024 Subjective/Severity of Illness: Jonathan is seen on morning rounds sitting in the chair with his knee immobilizer in place. Remains confused and thinks he is in [place]. He is not having much pain, but reports he feels his hip "slide out and pop back into place" if he isn't careful or following instructions. Discussed options of bracing vs surgical revision. He doesn't know what he wants to do. Psych eval suggested he is not competent to make his own medical decisions. CM is looking into our options on this. No new complaints or concerns. Orthopedic Exam Vital signs: Temperature 95.9 F L 02/05/18 15:57 Pulse Rate 64 02/05/18 15:57 Respiratory Rate 18 02/05/18 15:57 Blood Pressure 149/69 H 02/05/18 15:57 Pulse Oximetry 97 02/05/18 15:57 Vital Signs Temp Pulse Resp BP Pulse Ox 02/16/18 07:34 97.2 F 61 16 165/73 H 96 02/16/18 04:00 97.4 F 59 L 16 164/72 H 92 02/16/18 00:00 97.2 F 65 16 140/71 H 94 02/15/18 20:00 96.7 F L 66 20 106/56 93 02/15/18 16:36 96.6 F L 65 16 144/67 H 95 02/15/18 12:00 96.5 F L 61 16 159/71 H 94 Intake and Output 02/15/18 02/16/18 02/16/18 22:59 06:59 14:59 Intake Total 240 / 240 Output Total 200 / 200 350 / 350 Balance -200 / -200 -350 / -350 240 / 240 Intake: Oral 240 / 240 Output: Urine 200 / 200 350 / 350 Other: Urine Appearance Clear Clear Urine Color Yellow Yellow Stool Color Brown Stool Consistency Soft Size of Bowel Movement Smear # Voids 1 Weight 229 lb 11.547 oz Patient Weight 02/17/18 06:59 Weight 229 lb 11.547 oz - Constitutional General Appearance: Present: alert, no acute distress - Respiratory Exam Present: non-labored - Cardiovascular Exam Present: pedal pulses intact Capillary Refill: < 2-3 Seconds - Abdominal Exam Present: soft. Absent: tenderness, distended - Extremities Exam Present: no edema, pulses intact - Dressing Dressing: dry, intact, no drainage - Hip Exam right Hip Exam: Present: alignment normal, other (Leg length looks normal.) - Integumentary Exam Present: pink, warm, dry - Lymphatic Lymphatic: Absent: lymphedema - Neurological Exam Present: intact to light touch, no deficits - Psychiatric Exam Present: alert, normal affect, attentive. Absent: oriented - Labs Result Diagrams: 02/16/18 04:34 02/16/18 04:34 Abnormal lab results 02/16/18 02/16/18 Range/Units 04:34 04:34 RBC 4.19 L (4.50-5.90) M/MM3 Hgb 10.7 L (13.5-17.5) GM/DL Hct 33.3 L (41-53) % MCV 79.5 L (80-100) UM3 MCH 25.5 L (26-34) UUG Immature Gran % (Auto) 0.6 H (0.0-0.5) % [place] % (Auto) 9.8 H (0-9.0) % Abs Immat Gran (auto) 0.05 H (0.00-0.03) T/MM3 BUN 27.0 H (9-20) MG/DL BUN/Creatinine Ratio 30 H (6-26) RATIO H & H 02/14/18 02/14/18 02/14/18 Range/Units 04:09 13:13 17:37 Hgb 8.7 L 9.8 L D 10.6 L (13.5-17.5) GM/DL Hct 27.9 L 31.5 L D (41-53) % 02/14/18 02/16/18 Range/Units 21:43 04:34 Hgb 10.9 L 10.7 L (13.5-17.5) GM/DL Hct 33.3 L (41-53) % Orthopedic Assessment and Plan (1) Hip dislocation, right Status: Acute Qualifiers: Encounter type: initial encounter Qualified Code(s): S73.004A - Unspecified dislocation of right hip, initial encounter Assessment and Plan: Mr Foley was taken to the OR on 02/04/18, 02/06/18 & 02/12/18 for closed reduction of the right hip under anesthesia. Dr. Gaming is out of town until tomorrow. CM is looking into appropriate way to get consent for hip revision. Pt is not able to make the decision for himself. Need time for surgical planning and transportation of implants to our facility if revision of right VAIBHAV is going to take place. He is not safe to leave hospital due to high risk of recurring dislocations. Current staff is well educated on precautions and txfr to a NH would just increase his risk of another dislocation. Will continue the wedge pillow and straight leg immobilizer to minimize his risk. PT/OT continue to work with him on hip precautions and ambulation. Refer to CM notes, attempting to obtain guardianship. Dr. James (PCP) consulted yesterday, managing medically. I have ask the nurse to contact Dr Lewis to evaluate Mr Foley for surgical clearance. I will stop the Plavix for now with anticipation of surgical revision on Saturday , 02/25/18. - Additional Diagnoses Atrial Fibrillation: rate controlled Diabetes: resume oral medications, other (Has been under good control.) CAD: no active chest pain Anemia: no intervention required Hospital Course Summary Disclaimer: The visit summary below is not to be considered part of the above Progress Note. 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 Psychiatric evaluation suggested that the patient is not competent to make his own medication decisions. Case management is working on obtaining a guardian for the patient for consent to do a hip revision. Patient remains at high risk for recurrent dislocation, especially if transferred to assisted as [facility] [place] staff is well educated on precautions. Continue with current cares. Continue wedge pillow and straight leg immobilizer to minimize risk. Plan to stop Plavix on 02/24 in anticipation of surgery for 02/24 assuming consent can be obtained. Encourage participation in therapies to work with him on precautions and ambulation. Continue with bowel motivation. Recheck labs in AM to monitor blood counts, electrolytes and renal function.
--- NOTE | 2018-02-16 16:03 | Progress Note ---
- Date 02/16/18 Subjective: F/U: Anemia, Diabetes, Hypertension, Hyperlipidemia Covering for Dr Tavarez Resting in bed this afternoon. Feeling okay. Not having pains or discomfort. Breathing well without SOA or congestion. No chest pain. Eating well. Bowels stable-Miralax really helping. Objective Vital signs: Temperature 96.8 F 02/16/18 12:00 Pulse Rate 60 02/16/18 12:00 Respiratory Rate 16 02/16/18 12:00 Blood Pressure 143/69 H 02/16/18 12:00 Pulse Oximetry 97 02/16/18 12:00 Height/Weight/BMI: Weight 104.2 kg - Constitutional Present: well nourished, well developed, average body habitus, cooperative - Routine HEENT Exam Head: Present: normocephalic, atraumatic Eye: Present: EOMI, PERRL ENT: Present: mucous membranes moist - Routine Respiratory Exam Present: decreased breath sounds. Absent: rales, respiratory distress, rhonchi , wheezes, crackles - Routine Cardiovascular Exam Present: RRR, no murmur - Routine Abdominal Exam Present: soft, normoactive bowel sounds, non distended, non tender. Absent: guarding - Routine Extremities Exam Present: pulses intact. Absent: cyanosis, clubbing - Routine Musculoskeletal Exam Musculoskeletal: Present: no clubbing or cyanosis - Routine Skin Exam Present: dry, warm - Routine Neurological Exam Present: alert, moving all extremities, vision grossly intact, hearing grossly intact, normal speech. Absent: motor deficit, altered mental status - Routine Psychiatric Exam Present: normal affect, cooperative. 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 Will start SCD for DVT prevention. Blood pressure and blood sugars stable - continue with current treatment. Encourage participation in therapies to work with him on precautions and ambulation. Patient remains at high risk for recurrent dislocation, especially if transferred to senior living as [facility] nursing staff is well educated on precautions. Anticipate Dr Lewis's return tomorrow. Resuscitation Status: Full Code - Time spent with patient Time with patient PN: 15 minutes - Physician Narrative Physician: Chalino Puckett MD Narrative: Date: 02/16/18 Time: 1600 Hospital Course Summary Disclaimer: The visit summary below is not to be considered part of the above Progress Note. 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 Psychiatric evaluation suggested that the patient is not competent to make his own medication decisions. Case management is working on obtaining a guardian for the patient for consent to do a hip revision. Patient remains at high risk for recurrent dislocation, especially if transferred to senior living as [facility] nursing staff is well educated on precautions. Continue with current cares. Continue wedge pillow and straight leg immobilizer to minimize risk. Encourage participation in therapies to work with him on precautions and ambulation. Continue with bowel motivation. Recheck labs in AM to monitor blood counts, electrolytes and renal function. 02/16/18 [place] - Covering for Dr Lewis Clinically doing well. Forgetful about hip precautions. Plavix on hold for upcoming surgical procedure. Will start SCD for DVT prevention. Blood pressure and blood sugars stable - continue with current treatment. Encourage participation in therapies to work with him on precautions and ambulation. Patient remains at high risk for recurrent dislocation, especially if transferred to senior living as [facility] nursing staff is well educated on precautions. Anticipate Dr Lewis's return tomorrow.
[2018-02-16] MEDS: SALINE FLUSH 10ml SYRINGE IV PRN (21:00)
[2018-02-16] MEDS: NAPROXEN 220 MG TABLET PO SCH (21:00)
[2018-02-16] MEDS: SUCRALFATE 1 GM TABLET PO SCH (21:01)
[2018-02-16] MEDS: QUETIAPINE 50 MG TABLET PO SCH (21:01)
[2018-02-16] MEDS: RANITIDINE 300 MG TABLET PO SCH (21:01)
[2018-02-17] MEDS: CARVEDILOL 6.25 MG TABLET PO SCH ×2 (08:40→17:56)
[2018-02-17] MEDS: ASPIRIN *EC* 81 MG TABLET PO SCH (08:40)
[2018-02-17] MEDS: METFORMIN 1,000 MG TABLET PO SCH ×2 (08:40→17:56)
[2018-02-17] MEDS: AMLODIPINE 5 MG TABLET PO SCH (08:40)
[2018-02-17] MEDS: POLYETHYL GLYCOL 3350 17gm PACKET PO SCH (08:41)
[2018-02-17] MEDS: ESCITALOPRAM 20 MG TABLET PO SCH (08:41)
[2018-02-17] MEDS: SENNA + DOCUSATE TABLET PO SCH ×2 (08:41→21:57)
--- NOTE | 2018-02-17 12:42 | Orthopedic Progress Note ---
Date: Date: 02/17/18 Time: 1238 Subjective/Severity of Illness: Jonathan is sleeping in bed this AM. He had an uneventful weekend and was followed medically by the hospitalist. He received 2u PRBCs and hgb is > 10. No new concerns at this time. Orthopedic Exam Vital signs: Temperature 95.9 F L 02/05/18 15:57 Pulse Rate 64 02/05/18 15:57 Respiratory Rate 18 02/05/18 15:57 Blood Pressure 149/69 H 02/05/18 15:57 Pulse Oximetry 97 02/05/18 15:57 Vital Signs Temp Pulse Resp BP Pulse Ox 02/16/18 07:34 97.2 F 61 16 165/73 H 96 02/16/18 04:00 97.4 F 59 L 16 164/72 H 92 02/16/18 00:00 97.2 F 65 16 140/71 H 94 02/15/18 20:00 96.7 F L 66 20 106/56 93 02/15/18 16:36 96.6 F L 65 16 144/67 H 95 02/15/18 12:00 96.5 F L 61 16 159/71 H 94 Intake and Output 02/15/18 02/16/18 02/16/18 22:59 06:59 14:59 Intake Total 240 / 240 Output Total 200 / 200 350 / 350 Balance -200 / -200 -350 / -350 240 / 240 Intake: Oral 240 / 240 Output: Urine 200 / 200 350 / 350 Other: Urine Appearance Clear Clear Urine Color Yellow Yellow Stool Color Brown Stool Consistency Soft Size of Bowel Movement Smear # Voids 1 Weight 229 lb 11.547 oz Patient Weight 02/17/18 06:59 Weight 229 lb 11.547 oz - Constitutional General Appearance: Present: no acute distress - Respiratory Exam Present: non-labored - Cardiovascular Exam Present: pedal pulses intact - Extremities Exam Present: pulses intact - Hip Exam right Hip Exam: Present: alignment normal - Integumentary Exam Present: pink, warm, dry - Neurological Exam Present: intact to light touch, no deficits - Psychiatric Exam Present: other (Sleeping.) - Labs Result Diagrams: 02/16/18 04:34 02/16/18 04:34 H & H 02/14/18 02/14/18 02/14/18 Range/Units 04:09 13:13 17:37 Hgb 8.7 L 9.8 L D 10.6 L (13.5-17.5) GM/DL Hct 27.9 L 31.5 L D (41-53) % 02/14/18 02/16/18 Range/Units 21:43 04:34 Hgb 10.9 L 10.7 L (13.5-17.5) GM/DL Hct 33.3 L (41-53) % Orthopedic Assessment and Plan (1) Hip dislocation, right Status: Acute Qualifiers: Encounter type: initial encounter Qualified Code(s): S73.004A - Unspecified dislocation of right hip, initial encounter Assessment and Plan: Mr Foley was taken to the OR on 02/04/18, 02/06/18 & 02/12/18 for closed reduction of the right hip under anesthesia. CM is looking into appropriate way to get consent for hip revision. Pt is not able to make the decision for himself. He is not safe to leave hospital due to high risk of recurring dislocations. Current staff is well educated on precautions and txfr to a NH would just increase his risk of another dislocation. Will continue the wedge pillow and straight leg immobilizer to minimize his risk. PT/OT continue to work with him on hip precautions and ambulation. Refer to CM notes, attempting to obtain guardianship. Dr. Lewis (PCP) consulted for medical mgmt. I have ask the nurse to contact Dr Lewis to evaluate Mr Foley for surgical clearance. Plavix on hold for now with anticipation of surgical revision on Saturday, . - Additional Diagnoses Atrial Fibrillation: rate controlled Diabetes: resume oral medications, other (Has been under good control.) CAD: no active chest pain Anemia: no intervention required Hospital Course Summary Disclaimer: The visit summary below is not to be considered part of the above Progress Note. 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 Psychiatric evaluation suggested that the patient is not competent to make his own medication decisions. Case management is working on obtaining a guardian for the patient for consent to do a hip revision. Patient remains at high risk for recurrent dislocation, especially if transferred to long term as [facility] nursing staff is well educated on precautions. Continue with current cares. Continue wedge pillow and straight leg immobilizer to minimize risk. Encourage participation in therapies to work with him on precautions and ambulation. Continue with bowel motivation. Recheck labs in AM to monitor blood counts, electrolytes and renal function. 02/16/18 [place] - Covering for Dr Lewis Clinically doing well. Forgetful about hip precautions. Plavix on hold for upcoming surgical procedure. Will start SCD for DVT prevention. Blood pressure and blood sugars stable - continue with current treatment. Encourage participation in therapies to work with him on precautions and ambulation. Patient remains at high risk for recurrent dislocation, especially if transferred to long term as [facility] nursing staff is well educated on precautions. Anticipate Dr Lewis's return tomorrow.
--- NOTE | 2018-02-17 17:02 | XRay Report ---
Indication: PRE-SURGERY PROCEDURE: XR chest 1V: Encounter: Initial Comparison: 04/25/2017 Findings: The examination is slightly expiratory in nature. There is been some interval clearing of the right lung base there may be persistent slight elevation of the left diaphragm with some left basilar atelectasis. There is prominence of the cardiac silhouette which is probably accentuated by the AP portable technique. Impression: Interval clearing of the right lung base with possible left basilar atelectasis and/or pneumonia. View might be of benefit. .
[2018-02-17] MEDS: NAPROXEN 220 MG TABLET PO SCH (21:56)
[2018-02-17] MEDS: SUCRALFATE 1 GM TABLET PO SCH (21:56)
[2018-02-17] MEDS: RANITIDINE 300 MG TABLET PO SCH (21:56)
[2018-02-17] MEDS: QUETIAPINE 50 MG TABLET PO SCH (21:57)
[2018-02-18] MEDS: NS 1,000 ML IV SCH ×5 (10:50→21:59)
[2018-02-18] MEDS ORDERED: CEFAZOLIN 1 G INJECTION IVP ONE ×2 (11:03→15:31)
[2018-02-18] MEDS ORDERED: TRANEXAMIC ACID 1,000 MG/10 ML VIAL TOP ONE (11:05)
[2018-02-18] MEDS ORDERED: FAMOTIDINE PB 20 MG/50 ML BAG IV ONE (11:05)
[2018-02-18] MEDS ORDERED: METOCLOPRAMIDE 10mg/2ml INJECTION IVP ONE (11:06)
[2018-02-18] MEDS: AMLODIPINE 5 MG TABLET PO SCH (11:07)
[2018-02-18] MEDS ORDERED: ACETAMINOPHEN 500 MG TABLET PO ONE (11:07)
[2018-02-18] MEDS: METFORMIN 1,000 MG TABLET PO SCH ×2 (11:07→19:47)
[2018-02-18] MEDS: ESCITALOPRAM 20 MG TABLET PO SCH (11:07)
[2018-02-18] MEDS: ASPIRIN *EC* 81 MG TABLET PO SCH (11:07)
[2018-02-18] MEDS: CARVEDILOL 6.25 MG TABLET PO SCH ×2 (11:07→18:25)
[2018-02-18] MEDS: SENNA + DOCUSATE TABLET PO SCH ×2 (11:08→20:33)
[2018-02-18] MEDS: POLYETHYL GLYCOL 3350 17gm PACKET PO SCH (11:08)
[2018-02-18] MEDS ORDERED: NOZIN NASAL SWAB NAS SCH (11:15)
--- NOTE | 2018-02-18 12:15 | Anesthesia Preoperative Report ---
Anesthesia Preoperative Record - Date and Time Date: 02/18/18 Preoperative Diagnosis: Right Prosthetic Hip Dislocation Proposed Procedure: revision right VAIBHAV NPO Since Date: 02/18/18 NPO Since Time: 05:00 Allergies/Adverse Reactions: Allergies Allergy/AdvReac Type Severity Reaction Status Date / Time hydrocodone AdvReac Unknown Confusion Verified 02/04/18 11:06 oxycodone AdvReac Unknown Confusion Verified 02/04/18 11:06 - Vital Signs Vital Signs: Temperature 97.7 F 02/18/18 10:46 Pulse Rate 58 L 02/18/18 10:46 Respiratory Rate 14 02/18/18 10:46 Blood Pressure 136/64 02/18/18 10:46 Pulse Oximetry 94 02/18/18 10:46 Height and Weight: Weight 102.7 kg - Medications Inpatient Medications: Current Medications Acetaminophen (Tylenol) 500 - 1,000 mg PO Q6H PRN PRN Reason: Pain Last Admin: 02/12/18 10:24 Dose: 1,000 mg Amlodipine Besylate (Norvasc) 5 mg PO DAILY [facility] Last Admin: 02/18/18 11:07 Dose: Not Given Aspirin (Ecotrin) 81 mg PO DAILY [facility] Last Admin: 02/18/18 11:07 Dose: Not Given Carvedilol (Coreg) 6.25 mg PO BIDWM [facility] Last Admin: 02/18/18 11:07 Dose: Not Given Escitalopram Oxalate (Lexapro) 20 mg PO DAILY [facility] Last Admin: 02/18/18 11:07 Dose: Not Given Ferric Carboxymaltose 750 mg/ (Sodium Chloride) 265 mls @ 200 mls/hr IV 1000 KRISTOFER Stop: 02/19/18 11:20 Sodium Chloride (Normal Saline) 1,000 mls @ 50 mls/hr IV .Q20H [facility] Last Admin: 02/18/18 10:50 Dose: 50 mls/hr Isopropyl Alcohol (Nozin Nasal Swab) 3 each GREGORY O [facility] Last Admin: 02/18/18 11:13 Dose: 3 each Magnesium Hydroxide (Mom) 30 ml PO DAILY PRN PRN Reason: Constipation Metformin HCl (Glucophage) 1,000 mg PO BIDWM [facility] Last Admin: 02/18/18 11:07 Dose: Not Given Naproxen (Aleve (Naproxen) 220 Mg) 220 mg PO HS [facility] Last Admin: 02/17/18 21:56 Dose: 220 mg Oxybutynin Chloride (Ditropan Xl) 10 mg PO DAILY [facility] Last Admin: 02/18/18 11:08 Dose: Not Given Polyethylene Glycol (Miralax) 17 gm PO DAILY [facility] Last Admin: 02/18/18 11:08 Dose: Not Given Quetiapine Fumarate (Seroquel) 50 mg PO [facility] Last Admin: 02/17/18 21:57 Dose: 50 mg Ranitidine HCl (Zantac) 300 mg PO HS [facility] Last Admin: 02/17/18 21:56 Dose: 300 mg Senna/Docusate Sodium (Senna Plus Tablet) 1 tab PO BID [facility] Last Admin: 02/18/18 11:08 Dose: Not Given Sodium Chloride (Iv Flush) 10 ml IV PRN PRN PRN Reason: Flushing Last Admin: 02/16/18 21:00 Dose: 10 ml Sodium Chloride (Normal Saline) 500 ml IV PRN PRN Last Admin: 02/14/18 14:54 Dose: 500 ml Sucralfate (Carafate) 1 gm PO [facility] Last Admin: 02/17/18 21:56 Dose: 1 gm Home Medications: Home Medications Medication Instructions Recorded Confirmed Type raNITIdine HCl [Ranitidine HCl] 300 mg PO HS #0 05/04/10 02/04/18 History Metformin HCl 1,000 mg PO BID #0 03/28/16 02/04/18 History Carvedilol 6.25 mg PO BID #0 11/11/16 02/04/18 History Aspirin *EC* [Ecotrin] 81 mg PO DAILY 03/27/17 02/04/18 History Oxybutynin Chloride [Ditropan Xl] 10 mg PO DAILY 04/22/17 02/04/18 History Quetiapine [Seroquel] 50 mg PO HS #30 tab 05/06/17 02/04/18 Rx Acetaminophen [Tylenol] 500 - 1,000 mg PO Q8H PRN #100 tab 02/04/18 Rx Clopidogrel Bisulfate [Clopidogrel] 75 mg PO DAILY 02/04/18 02/04/18 History Escitalopram [Lexapro] 20 mg PO DAILY 02/04/18 02/04/18 History Naproxen Sodium [Aleve] 220 mg PO HS 02/04/18 02/04/18 History Sucralfate [Carafate] 1 gm PO HS 02/04/18 02/04/18 History Is Patient on Beta Yang?: Yes Beta Yang Last Dose Date/Time: 02/04/18 @ 0800 - Medical History Respiratory: Reports: Chronic Obstructive Pulmonary Disease (COPD) (long history of tobacco abuse), Dyspnea, Pneumonia, Sleep Apnea Cardiovascular: Reports: Abnormal EKG, Coronary Artery Disease (s/p stent in 2014, asymptomatic since), Hypertension, Myocardial Infarction (2014, stent placed ), Valvular Heart Disease Gastrointestional: Reports: Gastroesophageal Reflux Disease, Ulcer DENIES: Nausea or Vomiting Present Neuro/Musculoskeletal: Reports: Back Problems, Cerebrovascular Accident (TIA ), Muscle Weakness, Other (history of dimentia) Renal/Endocrine: Reports: Diabetes Mellitus Type 2 Other History: DENIES: Anesthesia Reactions, Now, Blood Transfusions, Chemotherapy , Cancer, Hemophilia, Malignant Hyperthermia, Sickle Cell Disease, Other - Surgical History Neurological Surgeries: Reports: Other (lumbar back surgery; vertebroplasty) HEENT Surgeries: Reports: Eye Surgery (Cataract OU) Cardiac Surgeries/Treatments: Reports: Cardiac Catheterization (with stent 08-14 ) Respiratory Surgery/Treatments: Reports: CPAP Use, Other (Thoracentesis) Musculoskeletal Surgery/Tx: Reports: Carpal Tunnel Release (Aamir), Joint Surgery , Shoulder Arthroscopy (Aamir RCR), Total Hip Replacement (Right), Total Knee Replacement Anesthesia Reactions: None Hx Family Anesthesia Reaction: No History of Motion Sickness: No - Social History Smoking Status: Former smoker Packs per day: 1.5 Pack-years: 62 Hx Chewing Tobacco Use: No Second Hand Exposure: No Substance Use Type: does not use Alcohol Intake Frequency: does not drink - Pertinent Findings Laboratory: CBC and BMP 02/18/18 03:56 02/18/18 03:56 BMP 02/18/18 03:56 Sodium 133 L Potassium 4.2 Chloride 98 Carbon Dioxide 25 BUN 23.0 H Creatinine 1.0 Glucose 77 Calcium 9.1 EKG: Sinus Bradycardia - Physical Exam Respiratory Exam: Present: lungs clear, bilateral breath sounds equal Cardiovascular Exam: Present: regular rate and rhythm, systolic murmur - Airway Assessment Mallampati Score: II TMD: 3 Fingerbreadths Neck Extension: fair Teeth: upper dentures, lower dentures Overall Assessment: no airway concerns - ASA ASA Score: 4, E - Plan Regional/Trunk Block: Spinal - Discussion Discussion: Discussed risks/options/alternatives of anesthesia and questions answered. Patient consents. Nursing pain assessment noted. Attestation Statement: Prior to the delivery of any anesthetic medication, I examined the patient, developed the plan, obtained the patient's consent and discussed the risk and benefits of the procedure with the patient/guardian. - Additional Information Seen by Anesthesia: Yes
[2018-02-18] MEDS ORDERED: VANCOMYCIN 1,000 MG INJECTION ONE (12:19)
[2018-02-18] MEDS ORDERED: MIDAZOLAM 2mg/2ml INJECTION ONE (12:26)
[2018-02-18] MEDS ORDERED: PROPOFOL 500 MG/50 ML VIAL ONE (12:27)
[2018-02-18] MEDS ORDERED: EPINEPHrine 1mg/ml PRESERVATIVE-FREE INJ AMP ONE (12:44)
[2018-02-18] MEDS ORDERED: BUPIVACAINE 0.75%/DEXTROSE 8.5% SPINAL 2 ML AMPULE IJ ONE (12:44)
[2018-02-18] MEDS ORDERED: NS OPSITE ONE (12:45)
[2018-02-18] MEDS ORDERED: KETOROLAC OPSITE ONE (12:45)
[2018-02-18] MEDS ORDERED: BUPIVACAINE 0.25% OPSITE ONE (12:45)
[2018-02-18] MEDS ORDERED: EPINEPHRINE OPSITE ONE (12:45)
[2018-02-18] MEDS ORDERED: ROCURONIUM 50 MG/5 ML INJECTION IVP ONE ×2 (13:08→13:40)
[2018-02-18] MEDS ORDERED: FentaNYL 250 MCG/5 ML INJECTION ONE (13:17)
[2018-02-18] MEDS ORDERED: PROPOFOL 20 ML ONE ×4 (13:21→16:31)
[2018-02-18] MEDS ORDERED: KETAMINE 500 MG/10 ML INJECTION ONE (13:26)
[2018-02-18] MEDS ORDERED: SALINE FLUSH 10ml SYRINGE ONE ×2 (13:41→16:14)
[2018-02-18] MEDS ORDERED: EPHEDRINE 50mg/ml INJECTION ONE (13:41)
[2018-02-18] MEDS ORDERED: CEFAZOLIN 1 G INJECTION ONE (15:24)
[2018-02-18] MEDS ORDERED: VANCOMYCIN 1,000 MG INJECTION IAR ONE (15:29)
[2018-02-18] MEDS ORDERED: CEFAZOLIN 2 G in NS 100 ML IV ONE (15:30)
[2018-02-18] MEDS ORDERED: PHENYLEPHRINE INJ 10 MG/ML VIAL IV ONE (16:15)
[2018-02-18] MEDS ORDERED: SUGAMMADEX 200mg/2ml INJECTION IVP ONE (16:56)
[2018-02-18] MEDS ORDERED: GLYCOPYRROLATE 0.4 MG/2 ML INJECTION ONE (17:03)
--- NOTE | 2018-02-18 17:59 | Anesthesia Postoperative Note ---
- Date and Time Date: 02/18/18 Time: 17:58 - Status Patient Participated in Evaluation: Patient Participated in Person Vital Signs: Temperature 96.8 F 02/18/18 17:45 Pulse Rate 73 02/18/18 17:55 Respiratory Rate 14 02/18/18 17:55 Blood Pressure 137/61 02/18/18 17:55 Pulse Oximetry 100 02/18/18 17:55 Respiratory Function: Airway Patent Cardiovascular Function: Regular Pulse EKG Ectopy: Bundle Branch Block Mental Status: Alert and Oriented Pain Intensity: 0 Hydration: Taking PO Fluids, IV Infusing Complications During Recover: None Apparent - Follow-Up Instructions Instructions: Per Surgeon
[2018-02-18] MEDS ORDERED: NOZIN NASAL SWAB NAS ONE (18:15)
[2018-02-18] MEDS ORDERED: LORazepam 1 MG TABLET PO PRN (18:15)
[2018-02-18] MEDS ORDERED: ONDANSETRON 4 MG/2 ML INJECTION IVP PRN (18:15)
[2018-02-18] MEDS ORDERED: DiphenhydrAMINE 25 MG CAPSULE PO PRN (18:15)
[2018-02-18] MEDS ORDERED: DiphenhydrAMINE 50 MG/ML INJECTION IVP PRN (18:15)
[2018-02-18] MEDS: TRAMADOL 50 MG TABLET PO PRN (18:39)
[2018-02-18] MEDS: RANITIDINE 300 MG TABLET PO SCH (20:33)
[2018-02-18] MEDS: NAPROXEN 220 MG TABLET PO SCH (20:34)
[2018-02-18] MEDS: QUETIAPINE 50 MG TABLET PO SCH (20:34)
[2018-02-18] MEDS: ACETAMINOPHEN 325 MG TABLET PO SCH (20:34)
[2018-02-18] MEDS: SUCRALFATE 1 GM TABLET PO SCH (20:34)
[2018-02-18] MEDS ORDERED: ASPIRIN *EC* 81 MG TABLET PO SCH (21:00)
[2018-02-18] MEDS ORDERED: FALL RISK - PHARMACY CONSULT MC ONE (22:49)
[2018-02-18] MEDS: NOZIN NASAL SWAB NAS SCH (23:57)
[2018-02-19] MEDS: TRAMADOL 50 MG TABLET PO PRN ×2 (01:45→07:49)
[2018-02-19] MEDS: CEFAZOLIN 2 G in NS 100 ML IV SCH ×2 (01:45→08:51)
[2018-02-19] MEDS: NOZIN NASAL SWAB NAS SCH ×4 (05:14→21:38)
--- NOTE | 2018-02-19 08:17 | XRay Report ---
Indication: RT HIP REVISION PROCEDURE: XR pelvis 1-2V: Encounter: Initial Comparison: None Findings/ Impression: Intraoperative image. There is an intramedullary loretta seen in the proximal portion of the right femur. Acetabular cup is noted. No acute fracture seen. .
--- NOTE | 2018-02-19 08:19 | Remote Fluorsocopy Report ---
Indication: RT HIP REVISION PROCEDURE: RF hip RT 1 view: Encounter: Initial Comparison: February 12, 2018 Findings: Seven fluoroscopic spot images are submitted for interpretation. Images show placement of a new femoral component of the total hip prosthesis. Impression: Fluoroscopy as above. Fluoroscopy time is 92.3 seconds. Fluoroscopy dose is 1300 mRad. .
--- NOTE | 2018-02-19 08:25 | Orthopedic Progress Note ---
Date: Date: 02/19/18 Time: 820 Subjective/Severity of Illness: Mr. Palafox is lying in bed during rounds this morning. He reports right hip pain this morning, nursing report last dose of Tramadol at 0100 this morning. He is alert and oriented x3 this morning. Denies CP, SOA, nausea. Hgb 8.5, preop 10.8. Orthopedic Exam Vital signs: Temperature 95.9 F L 02/05/18 15:57 Pulse Rate 64 02/05/18 15:57 Respiratory Rate 18 02/05/18 15:57 Blood Pressure 149/69 H 02/05/18 15:57 Pulse Oximetry 97 02/05/18 15:57 Vital Signs Temp Pulse Resp BP Pulse Ox 02/16/18 07:34 97.2 F 61 16 165/73 H 96 02/16/18 04:00 97.4 F 59 L 16 164/72 H 92 02/16/18 00:00 97.2 F 65 16 140/71 H 94 02/15/18 20:00 96.7 F L 66 20 106/56 93 02/15/18 16:36 96.6 F L 65 16 144/67 H 95 02/15/18 12:00 96.5 F L 61 16 159/71 H 94 Intake and Output 02/15/18 02/16/18 02/16/18 22:59 06:59 14:59 Intake Total 240 / 240 Output Total 200 / 200 350 / 350 Balance -200 / -200 -350 / -350 240 / 240 Intake: Oral 240 / 240 Output: Urine 200 / 200 350 / 350 Other: Urine Appearance Clear Clear Urine Color Yellow Yellow Stool Color Brown Stool Consistency Soft Size of Bowel Movement Smear # Voids 1 Weight 229 lb 11.547 oz Patient Weight 02/17/18 06:59 Weight 229 lb 11.547 oz - Constitutional General Appearance: Present: alert, orientated x3, no acute distress - Respiratory Exam Present: CTA bilaterally, non-labored - Cardiovascular Exam Present: Regular Rate/Rhythm, pedal pulses intact - Extremities Exam Present: pulses intact. Absent: calf tenderness - Dressing Dressing: dry, intact, no drainage Comments: right hip mepilex - Hip Exam right Hip Exam: Present: alignment normal - Integumentary Exam Present: pink, warm, dry - Lymphatic Lymphatic: Present: lymphedema - Neurological Exam Present: intact to light touch, no deficits - Psychiatric Exam Present: alert, oriented - Labs Result Diagrams: 02/19/18 04:47 02/19/18 04:47 Abnormal lab results 02/18/18 02/19/18 02/19/18 Range/Units 21:15 04:47 04:47 Hgb 9.3 L D 8.5 L (13.5-17.5) GM/DL Hct 28.4 L D 26.5 L (41-53) % BUN 24.0 H (9-20) MG/DL Calcium 8.1 L D (8.4-10.2) MG/DL H & H 02/14/18 02/14/18 02/14/18 Range/Units 04:09 13:13 17:37 Hgb 8.7 L 9.8 L D 10.6 L (13.5-17.5) GM/DL Hct 27.9 L 31.5 L D (41-53) % 02/14/18 02/16/18 02/18/18 Range/Units 21:43 04:34 03:56 Hgb 10.9 L 10.7 L 10.8 L (13.5-17.5) GM/DL Hct 33.3 L 33.4 L (41-53) % 02/18/18 02/19/18 Range/Units 21:15 04:47 Hgb 9.3 L D 8.5 L (13.5-17.5) GM/DL Hct 28.4 L D 26.5 L (41-53) % Orthopedic Assessment and Plan (1) Hip dislocation, right Status: Acute Qualifiers: Encounter type: initial encounter Qualified Code(s): S73.004A - Unspecified dislocation of right hip, initial encounter Assessment and Plan: Mr Foley was taken to the OR on 02/04/18, 02/06/18 & 02/12/18 for closed reduction of the right hip under anesthesia. 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 Gaming Current anti-coagulation protocol- will restart Plavix 75mg daily and ASA 81mg daily for VTE prophylaxis. SCD's for added protection PT/OT services to improve independent function. Discharge Planning per Case Management- still waiting guardianship paperwork. - Additional Diagnoses Atrial Fibrillation: rate controlled Diabetes: resume oral medications, other (Has been under good control.) CAD: no active chest pain Anemia: no intervention required Hospital Course Summary Disclaimer: The visit summary below is not to be considered part of the above Progress Note. 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 Psychiatric evaluation suggested that the patient is not competent to make his own medication decisions. Case management is working on obtaining a guardian for the patient for consent to do a hip revision. Patient remains at high risk for recurrent dislocation, especially if transferred to prison [place] [facility] [place] precautions. Continue with current cares. Continue wedge pillow and straight leg immobilizer to minimize risk. Encourage participation in therapies to work with him on precautions and ambulation. Continue with bowel motivation. Recheck labs in AM to monitor blood counts, electrolytes and renal function. 02/16/18 [place] - Covering for Dr Lewis Clinically doing well. Forgetful about hip precautions. Plavix on hold for upcoming surgical procedure. Will start SCD for DVT prevention. Blood pressure and blood sugars stable - continue with current treatment. Encourage participation in therapies to work with him on precautions and ambulation. Patient remains at high risk for recurrent dislocation, especially if transferred to prison as [facility] [place] well educated on precautions. Anticipate Dr Lewis's return tomorrow.
--- NOTE | 2018-02-19 08:27 | XRay Report ---
Indication: postoperative image PROCEDURE: XR pelvis w/ 1 view RT hip: Encounter: Initial Comparison: February 12, 2018 Findings: Postoperative changes of right hip revision are seen. There is expected postoperative subcutaneous gas. No evidence of hardware failure or acute fracture. No retained radiopaque surgical instruments or sponges seen. Impression: Revision right total hip prosthesis without evidence of immediate complication. .
[2018-02-19] MEDS: SENNA + DOCUSATE TABLET PO SCH ×2 (08:42→20:57)
[2018-02-19] MEDS: CARVEDILOL 6.25 MG TABLET PO SCH ×2 (08:43→16:56)
[2018-02-19] MEDS: AMLODIPINE 5 MG TABLET PO SCH (08:43)
[2018-02-19] MEDS: ASPIRIN *EC* 81 MG TABLET PO SCH (08:43)
[2018-02-19] MEDS: ACETAMINOPHEN 325 MG TABLET PO SCH ×4 (08:43→20:56)
[2018-02-19] MEDS: ESCITALOPRAM 20 MG TABLET PO SCH (08:43)
[2018-02-19] MEDS: POLYETHYL GLYCOL 3350 17gm PACKET PO SCH (08:43)
[2018-02-19] MEDS: NS 1,000 ML IV SCH ×2 (08:44→13:23)
[2018-02-19] MEDS: CLOPIDOGREL 75 MG TABLET PO SCH (08:51)
--- NOTE | 2018-02-19 09:47 | Operative Note ---
DATE OF OPERATION 02/18/2018 PREOPERATIVE DIAGNOSIS Right total hip arthroplasty instability. 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 PROCEDURE Revision right total hip arthroplasty. SURGEON Dell Gaming MD FOUNDATION COORDINATOR Isabela Benitez APRN COMPLICATIONS None ANESTHESIA General EBL 500 mL FLUIDS See Anesthetic records. DESCRIPTION OF PROCEDURE Mr. Mahajan and his right hip were identified and marked in the preoperative holding area. He was brought back to the operating suite. Spinal anesthetic was attempted but was unsuccessful, and he was placed in a supine position, placed under general anesthesia and intubated. He was then placed in a lateral decubitus position with the right side up on a well-padded table. Axillary roll was placed. The right lower extremity was prepped and draped in my normal sterile fashion. Time-out was performed. I utilized his previous posterior incision. Local anesthetic was injected at the incision site and sharp dissection was carried down to the muscle fascia which was then split in line with the skin incision. Charnley retractor was placed. There was abundant scar tissue as expected. This was taken down and capsulotomy performed with rotation of the hip to evaluate the replacement. It was obvious that the femoral component was loose. It was changing its anteversion freely. The hip was then dislocated and the femoral component removed with a back slap hammer. We then prepared the canal using a series of high speed bur and cement removal instruments to remove as much cement as possible. I was never able to completely remove the previous cement restrictor but it was pushed down the canal far enough to place a new stem. It did bring in fluoroscopic imaging to ensure our canal was reamed centrally. We then placed a 15 mm Schofield trial with a 0 head and reduced the hip. With this, he was stable throughout range of motion up to about 45 degrees of internal rotation with the hip flexed at 90 degrees. Leg length was felt good. The trials were then removed and the femoral canal was prepared for cementing first by using a wire brush followed by drying with a sponge and suction. A size 14 Schofield stem was then cemented into place at the proper anteversion. Cement was allowed to cure and once cured we then re-trialed with the 0 head. The 14 stem did fit a little bit further distal, so I ended up using a +4 head. This again gave good leg length and good stability throughout range of motion. The wound was thoroughly irrigated before the final +4 head was placed. Joint cocktail was injected throughout the soft tissue. One gram of vancomycin powder was placed into the hip joint before closure of the capsule. Betadine solution was used throughout the case. The capsulotomy was closed with #1 Ethibond. The muscle fascia was closed with #1 Vicryl. Subcutaneous tissue was closed with 2-0 Vicryl and the skin was closed with running 2-0 Monoderm. Sterile dressing will then be placed and the patient will be placed back into supine position. He will be allowed to awake from general anesthesia and extubated and taken to the recovery room under the care of Anesthesia. He tolerated the procedure well. There were no complications. ELI
--- NOTE | 2018-02-19 09:56 | XRay Report ---
Indication: post op PROCEDURE: XR hip RT 1V: Encounter: Initial Comparison: February 18, 2018 Findings: Stable appearance of the right total hip prosthesis. No acute fracture or evidence of hardware failure. Postoperative subcutaneous gas. Impression: Findings as above. .
[2018-02-19] MEDS ORDERED: FERRIC CARBOXYMALTOSE 750 MG in NS 250ml 250 ML IV SCH (10:00)
--- NOTE | 2018-02-19 14:52 | Progress Note ---
- Date 02/19/18 Subjective: F/U: Anemia, Diabetes, Hypertension, Hyperlipidemia Covering for Dr Tavarez Sitting in bed. Converses, but with more psychomotor slowing than over the weekend. Does not post op pain. Reports appetite decrease-feel full in abdomen. Did have some stool yesterday. Breathing stable. Sugars stable. Objective Vital signs: Temperature 97.6 F 02/19/18 11:23 Pulse Rate 68 02/19/18 11:23 Respiratory Rate 16 02/19/18 11:23 Blood Pressure 142/63 H 02/19/18 11:23 Pulse Oximetry 93 02/19/18 11:23 Height/Weight/BMI: Weight 101.3 kg - Constitutional Present: well nourished, well developed, average body habitus, cooperative - Routine HEENT Exam Head: Present: normocephalic, atraumatic Eye: Present: EOMI, PERRL ENT: Present: mucous membranes moist - Routine Respiratory Exam Present: decreased breath sounds. Absent: respiratory distress - Routine Cardiovascular Exam Present: RRR, no murmur - Routine Abdominal Exam Present: soft, non distended, non tender. Absent: normoactive bowel sounds ( decreased) - Routine Extremities Exam Present: no edema, pulses intact. Absent: cyanosis, clubbing - Routine Musculoskeletal Exam Musculoskeletal: Present: no clubbing or cyanosis - Routine Skin Exam Present: dry, warm - Routine Neurological Exam Present: alert, CN II-XII intact, vision grossly intact, hearing grossly intact - Routine Psychiatric Exam Present: cooperative. Absent: normal affect (Blunted affect) Comments: Psychomotor slowing. 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 Encourage nursing to give Dulcolax to help with bowel function. Urine output slow-will place Herman, start bladder retraining, and initiate Flomax. Continue with post op pain control and therapy. Blood sugars and pressure stable with current regimen. Lab ordered for tomorrow. DVT Prophylaxis: SCD's Resuscitation Status: Full Code - Time spent with patient Time with patient PN: 25 minutes - Physician Narrative Physician: Chalino Puckett MD Narrative: Date: 02/19/18 Time: [id number] Hospital Course Summary Disclaimer: The visit summary below is not to be considered part of the above Progress Note. 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 Psychiatric evaluation suggested that the patient is not competent to make his own medication decisions. Case management is working on obtaining a guardian for the patient for consent to do a hip revision. Patient remains at high risk for recurrent dislocation, especially if transferred to skilled nursing as [facility] nursing staff is well educated on precautions. Continue with current cares. Continue wedge pillow and straight leg immobilizer to minimize risk. Encourage participation in therapies to work with him on precautions and ambulation. Continue with bowel motivation. Recheck labs in AM to monitor blood counts, electrolytes and renal function. 02/16/18 [place] - Covering for Dr Lewis Clinically doing well. Forgetful about hip precautions. Plavix on hold for upcoming surgical procedure. Will start SCD for DVT prevention. Blood pressure and blood sugars stable - continue with current treatment. Encourage participation in therapies to work with him on precautions and ambulation. Patient remains at high risk for recurrent dislocation, especially if transferred to skilled nursing as [facility] nursing staff is well educated on precautions. Anticipate Dr Lewis's return tomorrow. 02/19/18 [place] - Covering for Dr Lewis Will decrease IVF to 50cc/hr - oral drive with decrease. Encourage nursing to give Dulcolax to help with bowel function. Urine output slow-will place Herman, start bladder retraining, and initiate Flomax. Continue with post op pain control and therapy. Blood sugars and pressure stable with current regimen. Lab ordered for tomorrow.
[2018-02-19] MEDS ORDERED: NS 1,000 ML IV SCH (15:00)
[2018-02-19] MEDS: QUETIAPINE 50 MG TABLET PO SCH (20:56)
[2018-02-19] MEDS: SUCRALFATE 1 GM TABLET PO SCH (20:56)
[2018-02-19] MEDS: NAPROXEN 220 MG TABLET PO SCH (20:56)
[2018-02-19] MEDS: TAMSULOSIN 0.4 MG CAPSULE PO SCH (20:56)
[2018-02-19] MEDS: RANITIDINE 300 MG TABLET PO SCH (20:56)
[2018-02-20] MEDS: TRAMADOL 50 MG TABLET PO PRN (03:15)
[2018-02-20] MEDS: NOZIN NASAL SWAB NAS SCH ×3 (06:27→22:33)
[2018-02-20] MEDS ORDERED: NS FLUSH BAG 500ml IV PRN (08:18)
[2018-02-20] MEDS ORDERED: FUROSEMIDE 20 MG/2 ML INJECTION IVP ONE (08:19)
[2018-02-20] MEDS: ASPIRIN *EC* 81 MG TABLET PO SCH (08:20)
[2018-02-20] MEDS: POLYETHYL GLYCOL 3350 17gm PACKET PO SCH (08:20)
[2018-02-20] MEDS: AMLODIPINE 5 MG TABLET PO SCH (08:20)
[2018-02-20] MEDS: ACETAMINOPHEN 325 MG TABLET PO SCH ×4 (08:20→20:05)
[2018-02-20] MEDS: CLOPIDOGREL 75 MG TABLET PO SCH (08:20)
[2018-02-20] MEDS: SENNA + DOCUSATE TABLET PO SCH ×2 (08:21→20:05)
[2018-02-20] MEDS: CARVEDILOL 6.25 MG TABLET PO SCH ×2 (08:21→17:39)
[2018-02-20] MEDS: ESCITALOPRAM 20 MG TABLET PO SCH (08:21)
--- NOTE | 2018-02-20 09:33 | Progress Note ---
- Date 02/20/18 Subjective: Jonathan was belligerent and resistive to nursing cares this am. By the time I arrived, he was pleasant and talkative. His left leg was internally rotated but he denied pain. He mentioned that he's unable to lift his right leg up off the bed. He c/o abdominal pain but denies n/v or tenderness. He denied feeling weak , dizzy, or short of breath. No chest pain. Objective Vital signs: Temperature 97.1 F 02/20/18 07:11 Pulse Rate 69 02/20/18 07:11 Respiratory Rate 18 02/20/18 07:11 Blood Pressure 138/78 02/20/18 07:11 Pulse Oximetry 97 02/20/18 07:11 Height/Weight/BMI: Weight 104.1 kg - Constitutional Present: no acute distress, well nourished, well developed - Routine HEENT Exam Head: Present: normocephalic Eye: Present: PERRL. 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 With weight trending up give Lasix post-transfusion. DC IVF. Oral intake starting to improve today. Start tracking I/O - if UO does not improve may need to restart IVF. Renal function is stable. Constipation - BM on 02/18 Postop cares per ortho D/W nursing and with Dr. Puckett GI Prophylaxis: Rantidine Resuscitation Status: Full Code - Time spent with patient Time with patient PN: 25 minutes - Physician Narrative Physician: Chalino Puckett MD Narrative: Date: 02/20/18 Time: 1710 Have independently interviewed and examined pt. Chart reviewed. Case discussed with my WET MACHINE OPERATOR. Above care plan developed with my supervision; agree with above. Doing better this afternoon-not restless/agitated. Does note post op hip pain, worse with movements. Appetite decreased. Not reporting flatus or stools. No stool charted since 02/17. No ab pain. Breathing feels okay-no increased SOA or congestion. Denies pain with breathing. Lungs: decreased bilaterally, no distress CV: regular AB: soft nt/nd MSE: awake alert, psychomotor slowing (but less pronounced that yesterday). Plan: IVF stopped. 1 unit given for anemia. Work on bowel function - encourage nursing to use prn medications. Therapy as able. Continue supportive care. Hospital Course Summary Disclaimer: The visit summary below is not to be considered part of the above Progress Note. 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 Psychiatric evaluation suggested that the patient is not competent to make his own medication decisions. Case management is working on obtaining a guardian for the patient for consent to do a hip revision. Patient remains at high risk for recurrent dislocation, especially if transferred to senior care as [facility] nursing staff is well educated on precautions. Continue with current cares. Continue wedge pillow and straight leg immobilizer to minimize risk. Encourage participation in therapies to work with him on precautions and ambulation. Continue with bowel motivation. Recheck labs in AM to monitor blood counts, electrolytes and renal function. 02/16/18 [place] - Covering for Dr Lewis Clinically doing well. Forgetful about hip precautions. Plavix on hold for upcoming surgical procedure. Will start SCD for DVT prevention. Blood pressure and blood sugars stable - continue with current treatment. Encourage participation in therapies to work with him on precautions and ambulation. Patient remains at high risk for recurrent dislocation, especially if transferred to senior care as [facility] nursing staff is well educated on precautions. Anticipate Dr Lewis's return tomorrow. 02/19/18 [place] - Covering for Dr Lewis Will decrease IVF to 50cc/hr - oral drive with decrease. Encourage nursing to give Dulcolax to help with bowel function. Urine output slow-will place Herman, start bladder retraining, and initiate Flomax. Nursing not able to place Herman as pt very resistant to that intervention. Will hold on Herman, but continue Flomax. Continue with post op pain control and therapy. Blood sugars and pressure stable with current regimen. Lab ordered for tomorrow. 02/20/18 [place] - covering for Dr Lewis Hgb down to 7.0; will type and cross for 1 unit PRBC. With weight trending up give Lasix post-transfusion. DC IVF. Oral intake starting to improve today. Start tracking I/O - if UO does not improve may need to restart IVF. Renal function is stable. Constipation - BM on 02/18 Addendum entered and electronically signed by Yani Fung APRN 02/20/18 09: 57: During breakfast, he aspirated while drinking apple juice. He required suctioning and then disregarded his meal after this episode. Sats dropped to 87 % and he was placed on 1L of O2. Will check CXR and consult speech therapy.
--- NOTE | 2018-02-20 10:31 | XRay Report ---
Indication: aspiration, hypoxia PROCEDURE: XR chest 1V: Encounter: Initial Comparison: February 17, 2018 Findings: Motion artifact. Lungs appear stable. No new or worsening airspace disease. No pneumothorax or effusion. Continued enlargement of the cardiac silhouette. Mediastinal contours and pulmonary vascularity are grossly stable. Impression: Stable appearance of the chest. .
--- NOTE | 2018-02-20 11:37 | Orthopedic Progress Note ---
Date: Date: 02/20/18 Time: 113 Subjective/Severity of Illness: Mr. Palafox is resting in bed during rounds and is drowsy and confused, states he is in [place]. Nursing reports patient refused PT yesterday, but did work with PT at bedside this morning due to his Hgb 7.0. He is receiving PRBC at this time. Nursing reports patient was combative but shortly after was pleasant. He also had choking episode this morning with breakfast, and required oxygen afterwards. Now is back on RA. ST consulted to eval and treat. C-xray ordered by hospitalist, normal. Patient denies any pain with right hip when I visit. Orthopedic Exam Vital signs: Temperature 95.9 F L 02/05/18 15:57 Pulse Rate 64 02/05/18 15:57 Respiratory Rate 18 02/05/18 15:57 Blood Pressure 149/69 H 02/05/18 15:57 Pulse Oximetry 97 02/05/18 15:57 Vital Signs Temp Pulse Resp BP Pulse Ox 02/16/18 07:34 97.2 F 61 16 165/73 H 96 02/16/18 04:00 97.4 F 59 L 16 164/72 H 92 02/16/18 00:00 97.2 F 65 16 140/71 H 94 02/15/18 20:00 96.7 F L 66 20 106/56 93 02/15/18 16:36 96.6 F L 65 16 144/67 H 95 02/15/18 12:00 96.5 F L 61 16 159/71 H 94 Intake and Output 02/15/18 02/16/18 02/16/18 22:59 06:59 14:59 Intake Total 240 / 240 Output Total 200 / 200 350 / 350 Balance -200 / -200 -350 / -350 240 / 240 Intake: Oral 240 / 240 Output: Urine 200 / 200 350 / 350 Other: Urine Appearance Clear Clear Urine Color Yellow Yellow Stool Color Brown Stool Consistency Soft Size of Bowel Movement Smear # Voids 1 Weight 229 lb 11.547 oz Patient Weight 02/17/18 06:59 Weight 229 lb 11.547 oz - Constitutional General Appearance: Present: alert, orientated x3, cooperative, no acute distress - Respiratory Exam Present: CTA bilaterally, non-labored - Cardiovascular Exam Present: Regular Rate/Rhythm, pedal pulses intact - Abdominal Exam Present: tenderness, distended - Extremities Exam Present: no edema, pulses intact - Dressing Dressing: dry, intact, no drainage Comments: mepilex right hip - Hip Exam right Hip Exam: Present: alignment normal - Integumentary Exam Present: pink, warm, dry - Neurological Exam Present: intact to light touch, no deficits - Labs Result Diagrams: 02/20/18 04:18 02/20/18 04:18 Abnormal lab results 02/20/18 02/20/18 02/20/18 Range/Units 04:18 04:18 08:34 Hgb 7.0 L D (13.5-17.5) GM/DL Hct 21.9 L D (41-53) % Calcium 8.2 L (8.4-10.2) MG/DL Crossmatch (AHG) See Detail H & H 02/14/18 02/14/18 02/14/18 Range/Units 04:09 13:13 17:37 Hgb 8.7 L 9.8 L D 10.6 L (13.5-17.5) GM/DL Hct 27.9 L 31.5 L D (41-53) % 02/14/18 02/16/18 02/18/18 Range/Units 21:43 04:34 03:56 Hgb 10.9 L 10.7 L 10.8 L (13.5-17.5) GM/DL Hct 33.3 L 33.4 L (41-53) % 02/18/18 02/19/18 02/20/18 Range/Units 21:15 04:47 04:18 Hgb 9.3 L D 8.5 L 7.0 L D (13.5-17.5) GM/DL Hct 28.4 L D 26.5 L 21.9 L D (41-53) % Orthopedic Assessment and Plan (1) Hip dislocation, right Status: Acute Qualifiers: Encounter type: initial encounter Qualified Code(s): S73.004A - Unspecified dislocation of right hip, initial encounter Assessment and Plan: Mr Foley was taken to the OR on 02/04/18, 02/06/18 & 02/12/18 for closed reduction of the right hip under anesthesia. 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 Gaming Current anti-coagulation protocol- will restart Plavix 75mg daily and ASA 81mg daily for VTE prophylaxis. SCD's for added protection PT/OT services to improve independent function. Discharge Planning per Case Management- still waiting guardianship paperwork. Medical Management per hospitalist. Hospital Course Summary Disclaimer: The visit summary below is not to be considered part of the above Progress Note. 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 Psychiatric evaluation suggested that the patient is not competent to make his own medication decisions. Case management is working on obtaining a guardian for the patient for consent to do a hip revision. Patient remains at high risk for recurrent dislocation, especially if transferred to [facility] as [facility] nursing staff is well educated on precautions. Continue with current cares. Continue wedge pillow and straight leg immobilizer to minimize risk. Encourage participation in therapies to work with him on precautions and ambulation. Continue with bowel motivation. Recheck labs in AM to monitor blood counts, electrolytes and renal function. 02/16/18 [place] - Covering for Dr Lewis Clinically doing well. Forgetful about hip precautions. Plavix on hold for upcoming surgical procedure. Will start SCD for DVT prevention. Blood pressure and blood sugars stable - continue with current treatment. Encourage participation in therapies to work with him on precautions and ambulation. Patient remains at high risk for recurrent dislocation, especially if transferred to [facility] as [facility] nursing staff is well educated on precautions. Anticipate Dr Lewis's return tomorrow. 02/19/18 [place] - Covering for Dr Lewis Will decrease IVF to 50cc/hr - oral drive with decrease. Encourage nursing to give Dulcolax to help with bowel function. Urine output slow-will place Heramn, start bladder retraining, and initiate Flomax. Continue with post op pain control and therapy. Blood sugars and pressure stable with current regimen. Lab ordered for tomorrow. 02/20/18 Hgb down to 7.0; will type and cross for 1 unit PRBC. With weight trending up give Lasix post-transfusion. DC IVF. Oral intake starting to improve today. Start tracking I/O - if UO does not improve may need to restart IVF. Renal function is stable. Constipation - BM on 02/18
[2018-02-20] MEDS ORDERED: BISACODYL 10 MG SUPPOSITORY RECTALLY SCH (20:00)
[2018-02-20] MEDS: QUETIAPINE 50 MG TABLET PO SCH (20:05)
[2018-02-20] MEDS: NAPROXEN 220 MG TABLET PO SCH (20:05)
[2018-02-20] MEDS: SUCRALFATE 1 GM TABLET PO SCH (20:05)
[2018-02-20] MEDS: TAMSULOSIN 0.4 MG CAPSULE PO SCH (20:05)
[2018-02-20] MEDS: RANITIDINE 300 MG TABLET PO SCH (20:05)
[2018-02-20] MEDS: SALINE FLUSH 10ml SYRINGE IV PRN (22:36)
[2018-02-21] MEDS: NOZIN NASAL SWAB NAS SCH ×5 (06:26→21:07)
[2018-02-21] MEDS: POLYETHYL GLYCOL 3350 17gm PACKET PO SCH (08:31)
[2018-02-21] MEDS: SENNA + DOCUSATE TABLET PO SCH ×2 (08:33→20:28)
[2018-02-21] MEDS: CARVEDILOL 6.25 MG TABLET PO SCH ×2 (08:33→17:03)
[2018-02-21] MEDS: ASPIRIN *EC* 81 MG TABLET PO SCH (08:33)
[2018-02-21] MEDS: AMLODIPINE 5 MG TABLET PO SCH (08:33)
[2018-02-21] MEDS: ESCITALOPRAM 20 MG TABLET PO SCH (08:34)
[2018-02-21] MEDS: CLOPIDOGREL 75 MG TABLET PO SCH (08:34)
[2018-02-21] MEDS: ACETAMINOPHEN 325 MG TABLET PO SCH ×4 (08:37→20:28)
[2018-02-21] MEDS: SALINE FLUSH 10ml SYRINGE IV PRN (08:38)
--- NOTE | 2018-02-21 08:44 | XRay Report ---
Indication: S/P R VAIBHAV revision, internally rotation right foot PROCEDURE: XR pelvis w/ 1 view RT hip: Encounter: Initial Comparison: February 19, 2018 Findings/ Impression: Right total hip replacement appears stable in position. No acute fracture or dislocation. .
--- NOTE | 2018-02-21 09:51 | Progress Note ---
- Date 02/21/18 Subjective: Jonathan was seen during breakfast. He didn't remember me from yesterday. He reports right leg pain. He denies abdominal pain today. He denies any other new symptoms ie chest pain or SOA. Nursing staff report that he has not had any behaviors this am. Overnight he was confused but not combative. Objective Vital signs: Temperature 96.2 F L 02/21/18 07:25 Pulse Rate 72 02/21/18 07:25 Respiratory Rate 18 02/21/18 07:25 Blood Pressure 143/63 H 02/21/18 07:25 Pulse Oximetry 94 02/21/18 07:25 Height/Weight/BMI: Weight 106.1 kg - Constitutional Present: no acute distress, well nourished, well developed - Routine HEENT Exam Head: Present: normocephalic Eye: Present: PERRL. Absent: conjunctival icterus, scleral injection - Routine Respiratory Exam Present: CTA bilaterally - Routine Cardiovascular Exam Present: RRR, S1, S2 - Routine Abdominal Exam Present: soft, normoactive bowel sounds, non distended, non tender - Routine Extremities Exam Present: no edema, pulses intact - Routine Musculoskeletal Exam Musculoskeletal: Present: other (right leg is internally rotated) - Routine Skin Exam Present: intact, dry, warm - Routine Neurological Exam Present: alert, normal speech - Routine Psychiatric Exam Present: cooperative Results - Labs CBC & Chem 7: 02/21/18 04:31 02/21/18 04:31 Assessment and Plan Assessment and Plan: Assessment: 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 Dressing is reportedly c/d/i without drainage. Check stool for occult blood. Iron level was low at 34 on on 02/11. Platelets also showing downward trend: Hold naproxen & ASA. He is hemodynamically stable. Weight continues to trend up; he is up 6 kg from date of admission. Anemia could be partly dilutional in nature. Unable to calculate I/O d/t urinary incontinence. He is maintaining saturations on room air. CXR yesterday was negative. Electrolytes/renal function stable. Constipation improved. Discussed with RN & with Dr. Lopez. DVT Prophylaxis: SCD's GI Prophylaxis: Rantidine Resuscitation Status: Full Code - Physician Narrative Physician: Flora Lopez MD Narrative: Date: 02/21/18 Time: 1640 I have independently evaluated and examined this patient. I reviewed the chart, the patient's history, and the SECURITIES SETTLEMENT PROCESSOR/PA's documented findings as above. We discussed and formulated the assessment and plan as above with additions as below: Mr. Mahajan was resting when seen earlier this afternoon. He denied pain in his hip and reported that he is voiding frequently and has been doing so for the past 6 months. Nursing notes indicate urinary incontinence with large volumes; notes also indicate patient has been resistant to care and agitated overnight. NAD, pleasant and cooperative when seen; generalized pallor. Respirations nonlabored with good airflow, breath sounds clear. Chest x-ray reviewed by myself revealing cardiomegaly, prior left reverse shoulder arthroplasty, clear lung evans. X-ray of the right hip also reviewed by myself demonstrating prosthesis to be in good position. Check UA. Further evaluation of anemia as outlined above. Iron deficient-has received IV iron 3. Nursing notes suggest patient is sundowning. Discussed with case management-temporary guardian being appointed due to 's [place]. Blood sugars stable off metformin. Hospital Course Summary Disclaimer: The visit summary below is not to be considered part of the above Progress Note. 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 Psychiatric evaluation suggested that the patient is not competent to make his own medication decisions. Case management is working on obtaining a guardian for the patient for consent to do a hip revision. Patient remains at high risk for recurrent dislocation, especially if transferred to intermediate as [facility] nursing staff is well educated on precautions. Continue with current cares. Continue wedge pillow and straight leg immobilizer to minimize risk. Encourage participation in therapies to work with him on precautions and ambulation. Continue with bowel motivation. Recheck labs in AM to monitor blood counts, electrolytes and renal function. 02/16/18 [place] - Covering for Dr Lewis Clinically doing well. Forgetful about hip precautions. Plavix on hold for upcoming surgical procedure. Will start SCD for DVT prevention. Blood pressure and blood sugars stable - continue with current treatment. Encourage participation in therapies to work with him on precautions and ambulation. Patient remains at high risk for recurrent dislocation, especially if transferred to intermediate as [facility] nursing staff is well educated on precautions. Anticipate Dr Lewis's return tomorrow. 02/19/18 [place] - Covering for Dr Lewis Will decrease IVF to 50cc/hr - oral drive with decrease. Encourage nursing to give Dulcolax to help with bowel function. Urine output slow-will place Herman, start bladder retraining, and initiate Flomax. Nursing not able to place Herman as pt very resistant to that intervention. Will hold on Herman, but continue Flomax. Continue with post op pain control and therapy. Blood sugars and pressure stable with current regimen. Lab ordered for tomorrow. 02/20/18 [place] - covering for Dr Lewis Hgb down to 7.0; will type and cross for 1 unit PRBC. With weight trending up give Lasix post-transfusion. DC IVF. Oral intake starting to improve today. Start tracking I/O - if UO does not improve may need to restart IVF. Renal function is stable. Constipation - BM on 02/1802/21/[address] Lewis Hgb 7.4, s/p 1 unit PRBC transfusion yesterday (and 2 units on 02/14). Dressing is reportedly c/d/i without drainage. Check stool for occult blood. Iron level was low at 34 on on 02/11. Platelets also showing downward trend: Hold naproxen & ASA. He is hemodynamically stable. Weight continues to trend up; he is up 6 kg from date of admission. Anemia could be partly dilutional in nature. Unable to calculate I/O d/t urinary incontinence. He is maintaining saturations on room air. CXR yesterday was negative. Electrolytes/renal function stable.
--- NOTE | 2018-02-21 10:36 | Orthopedic Progress Note ---
Date: Date: 02/21/18 Time: 1022 Subjective/Severity of Illness: Mr. Palafox is lying in bed this morning with wedge in place, right leg internally rotated. Patient is alert and oriented this morning. Nursing reports patient has been agitated and not wanting to keep right leg straight. Did work with PT in bed yesterday. Denies right hip pain. Hgb 7.4 this morning, received 1 unit PRBC yesterday. Orthopedic Exam Vital signs: Temperature 95.9 F L 02/05/18 15:57 Pulse Rate 64 02/05/18 15:57 Respiratory Rate 18 02/05/18 15:57 Blood Pressure 149/69 H 02/05/18 15:57 Pulse Oximetry 97 02/05/18 15:57 Vital Signs Temp Pulse Resp BP Pulse Ox 02/16/18 07:34 97.2 F 61 16 165/73 H 96 02/16/18 04:00 97.4 F 59 L 16 164/72 H 92 02/16/18 00:00 97.2 F 65 16 140/71 H 94 02/15/18 20:00 96.7 F L 66 20 106/56 93 02/15/18 16:36 96.6 F L 65 16 144/67 H 95 02/15/18 12:00 96.5 F L 61 16 159/71 H 94 Intake and Output 02/15/18 02/16/18 02/16/18 22:59 06:59 14:59 Intake Total 240 / 240 Output Total 200 / 200 350 / 350 Balance -200 / -200 -350 / -350 240 / 240 Intake: Oral 240 / 240 Output: Urine 200 / 200 350 / 350 Other: Urine Appearance Clear Clear Urine Color Yellow Yellow Stool Color Brown Stool Consistency Soft Size of Bowel Movement Smear # Voids 1 Weight 229 lb 11.547 oz Patient Weight 02/17/18 06:59 Weight 229 lb 11.547 oz - Constitutional General Appearance: Present: alert, orientated x3, no acute distress - Respiratory Exam Present: CTA bilaterally, non-labored - Cardiovascular Exam Present: Regular Rate/Rhythm, pedal pulses intact - Extremities Exam Present: no edema, pulses intact - Dressing Dressing: dry, intact, no drainage - Integumentary Exam Present: pink, warm, dry - Neurological Exam Present: intact to light touch, no deficits - Psychiatric Exam Present: alert, oriented - Labs Result Diagrams: 02/21/18 04:31 02/21/18 04:31 Abnormal lab results 02/20/18 02/20/18 02/21/18 Range/Units 08:34 12:49 04:31 RBC 2.81 L (4.50-5.90) M/MM3 Hgb 7.9 L D 7.4 L (13.5-17.5) GM/DL Hct 23.2 L (41-53) % Neut % (Auto) 71.9 H (33-66) % Lymph % (Auto) 16.6 L (23-45) % [place] % (Auto) 9.6 H (0-9.0) % [place] # (Auto) 0.9 H (0-0.8) T/MM3 Total Protein (6.3-8.2) g/dL Albumin (3.5-5.0) g/dL Crossmatch (AHG) See Detail 02/21/18 Range/Units 04:31 RBC (4.50-5.90) M/MM3 Hgb (13.5-17.5) GM/DL Hct (41-53) % Neut % (Auto) (33-66) % Lymph % (Auto) (23-45) % [place] % (Auto) (0-9.0) % [place] # (Auto) (0-0.8) T/MM3 Total Protein 6.0 L (6.3-8.2) g/dL Albumin 3.1 L (3.5-5.0) g/dL Crossmatch (AHG) H & H 02/14/18 02/14/18 02/14/18 Range/Units 04:09 13:13 17:37 Hgb 8.7 L 9.8 L D 10.6 L (13.5-17.5) GM/DL Hct 27.9 L 31.5 L D (41-53) % 02/14/18 02/16/18 02/18/18 Range/Units 21:43 04:34 03:56 Hgb 10.9 L 10.7 L 10.8 L (13.5-17.5) GM/DL Hct 33.3 L 33.4 L (41-53) % 02/18/18 02/19/18 02/20/18 Range/Units 21:15 04:47 04:18 Hgb 9.3 L D 8.5 L 7.0 L D (13.5-17.5) GM/DL Hct 28.4 L D 26.5 L 21.9 L D (41-53) % 02/20/18 02/21/18 Range/Units 12:49 04:31 Hgb 7.9 L D 7.4 L (13.5-17.5) GM/DL Hct 23.2 L (41-53) % Orthopedic Assessment and Plan (1) Hip dislocation, right Status: Acute Qualifiers: Encounter type: initial encounter Qualified Code(s): S73.004A - Unspecified dislocation of right hip, initial encounter Assessment and Plan: Mr Foley was taken to the OR on 02/04/18, 02/06/18 & 02/12/18 for closed reduction of the right hip under anesthesia. 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 Gaming Will repeat xray this morning due to rotation of right hip- no dislocation. Reviewed hip precautions and strongly encouraged patient to work with Nursing and PT for mobility. Current anti-coagulation protocol- will restart Plavix 75mg daily and ASA 81mg daily for VTE prophylaxis. SCD's for added protection PT/OT services to improve independent function. Discharge Planning per Case Management- still waiting guardianship paperwork. - Additional Diagnoses Atrial Fibrillation: rate controlled Diabetes: resume oral medications, other (Has been under good control.) CAD: no active chest pain Anemia: no intervention required Hospital Course Summary Disclaimer: The visit summary below is not to be considered part of the above Progress Note. 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 Psychiatric evaluation suggested that the patient is not competent to make his own medication decisions. Case management is working on obtaining a guardian for the patient for consent to do a hip revision. Patient remains at high risk for recurrent dislocation, especially if [place] [facility] is well educated on precautions. Continue with current cares. Continue wedge pillow and straight leg immobilizer to minimize risk. Encourage participation in therapies to work with him on precautions and ambulation. Continue with bowel motivation. Recheck labs in AM to monitor blood counts, electrolytes and renal function. 02/16/18 [place] - Covering for Dr Lewis Clinically doing well. Forgetful about hip precautions. Plavix on hold for upcoming surgical procedure. Will start SCD for DVT prevention. Blood pressure and blood sugars stable - continue with current treatment. Encourage participation in therapies to work with him on precautions and ambulation. Patient remains at high risk for recurrent dislocation, especially if transferred [place] [facility] [place] staff is well educated on precautions. Anticipate Dr Lewis's return tomorrow. 02/19/18 [place] - Covering for Dr Lewis Will decrease IVF to 50cc/hr - oral drive with decrease. Encourage nursing to give Dulcolax to help with bowel function. Urine output slow-will place Herman, start bladder retraining, and initiate Flomax. Nursing not able to place Herman as pt very resistant to that intervention. Will hold on Herman, but continue Flomax. Continue with post op pain control and therapy. Blood sugars and pressure stable with current regimen. Lab ordered for tomorrow. 02/20/18 [place] - covering for Dr Lewis Hgb down to 7.0; will type and cross for 1 unit PRBC. With weight trending up give Lasix post-transfusion. DC IVF. Oral intake starting to improve today. Start tracking I/O - if UO does not improve may need to restart IVF. Renal function is stable. Constipation - BM on 02/1802/21/[address] Lewis Hgb 7.4, s/p 1 unit PRBC transfusion yesterday (and 2 units on 02/14). Dressing is reportedly c/d/i without drainage. Check stool for occult blood. Iron level was low at 34 on on 02/11. Platelets also showing downward trend: Hold naproxen & ASA. He is hemodynamically stable. Weight continues to trend up; he is up 6 kg from date of admission. Anemia could be partly dilutional in nature. Unable to calculate I/O d/t urinary incontinence. He is maintaining saturations on room air. CXR yesterday was negative. Electrolytes/renal function stable.
[2018-02-21] MEDS: QUETIAPINE 50 MG TABLET PO SCH (20:28)
[2018-02-21] MEDS: RANITIDINE 300 MG TABLET PO SCH (20:28)
[2018-02-21] MEDS: TAMSULOSIN 0.4 MG CAPSULE PO SCH (20:28)
[2018-02-21] MEDS: SUCRALFATE 1 GM TABLET PO SCH (20:28)
[2018-02-22] MEDS: NOZIN NASAL SWAB NAS SCH ×4 (05:51→23:22)
--- NOTE | 2018-02-22 09:16 | Orthopedic Progress Note ---
Date: Date: 02/22/18 Time: 912 Subjective/Severity of Illness: Jonathan is resting this AM. Still awaiting directions regarding placement. Pt had some confusion post op but was better yesterday. No new complaints reported by staff. Orthopedic Exam Vital signs: Temperature 95.9 F L 02/05/18 15:57 Pulse Rate 64 02/05/18 15:57 Respiratory Rate 18 02/05/18 15:57 Blood Pressure 149/69 H 02/05/18 15:57 Pulse Oximetry 97 02/05/18 15:57 Vital Signs Temp Pulse Resp BP Pulse Ox 02/16/18 07:34 97.2 F 61 16 165/73 H 96 02/16/18 04:00 97.4 F 59 L 16 164/72 H 92 02/16/18 00:00 97.2 F 65 16 140/71 H 94 02/15/18 20:00 96.7 F L 66 20 106/56 93 02/15/18 16:36 96.6 F L 65 16 144/67 H 95 02/15/18 12:00 96.5 F L 61 16 159/71 H 94 Intake and Output 02/15/18 02/16/18 02/16/18 22:59 06:59 14:59 Intake Total 240 / 240 Output Total 200 / 200 350 / 350 Balance -200 / -200 -350 / -350 240 / 240 Intake: Oral 240 / 240 Output: Urine 200 / 200 350 / 350 Other: Urine Appearance Clear Clear Urine Color Yellow Yellow Stool Color Brown Stool Consistency Soft Size of Bowel Movement Smear # Voids 1 Weight 229 lb 11.547 oz Patient Weight 02/17/18 06:59 Weight 229 lb 11.547 oz - Constitutional General Appearance: Present: no acute distress, other (Sleeping.) - Respiratory Exam Present: non-labored - Cardiovascular Exam Present: pedal pulses intact - Dressing Dressing: no drainage - Hip Exam right Hip Exam: Present: alignment normal - Labs Result Diagrams: 02/22/18 04:09 02/22/18 04:09 Abnormal lab results 02/22/18 Range/Units 04:09 RBC 2.71 L (4.50-5.90) M/MM3 Hgb 7.2 L (13.5-17.5) GM/DL Hct 22.7 L (41-53) % RDW Std Deviation 50.3 H (36.9-50.2) FL Immature Gran % (Auto) 0.6 H (0.0-0.5) % Lymph % (Auto) 21.1 L (23-45) % [place] % (Auto) 10.1 H (0-9.0) % Eos % (Auto) 4.2 H (0-4) % [place] # (Auto) 0.9 H (0-0.8) T/MM3 Abs Immat Gran (auto) 0.05 H (0.00-0.03) T/MM3 H & H 02/14/18 02/14/18 02/14/18 Range/Units 04:09 13:13 17:37 Hgb 8.7 L 9.8 L D 10.6 L (13.5-17.5) GM/DL Hct 27.9 L 31.5 L D (41-53) % 02/14/18 02/16/18 02/18/18 Range/Units 21:43 04:34 03:56 Hgb 10.9 L 10.7 L 10.8 L (13.5-17.5) GM/DL Hct 33.3 L 33.4 L (41-53) % 02/18/18 02/19/18 02/20/18 Range/Units 21:15 04:47 04:18 Hgb 9.3 L D 8.5 L 7.0 L D (13.5-17.5) GM/DL Hct 28.4 L D 26.5 L 21.9 L D (41-53) % 02/20/18 02/21/18 02/22/18 Range/Units 12:49 04:31 04:09 Hgb 7.9 L D 7.4 L 7.2 L (13.5-17.5) GM/DL Hct 23.2 L 22.7 L (41-53) % Orthopedic Assessment and Plan (1) Hip dislocation, right Status: Acute Qualifiers: Encounter type: initial encounter Qualified Code(s): S73.004A - Unspecified dislocation of right hip, initial encounter Assessment and Plan: Mr Foley was taken to the OR on 02/04/18, 02/06/18 & 02/12/18 for closed reduction of the right hip under anesthesia. He underwent revision of the right hip on 02/18/18. Continue hip precautions. Awaiting placement instructions. 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 Gaming Will repeat xray this morning due to rotation of right hip- no dislocation. Reviewed hip precautions and strongly encouraged patient to work with Nursing and PT for mobility. Current anti-coagulation protocol- will restart Plavix 75mg daily and ASA 81mg daily for VTE prophylaxis. SCD's for added protection PT/OT services to improve independent function. Discharge Planning per Case Management- still waiting guardianship paperwork. - Additional Diagnoses Atrial Fibrillation: rate controlled Diabetes: resume oral medications, other (Has been under good control.) CAD: no active chest pain Anemia: no intervention required Hospital Course Summary Disclaimer: The visit summary below is not to be considered part of the above Progress Note. 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 Psychiatric evaluation suggested that the patient is not competent to make his own medication decisions. Case management is working on obtaining a guardian for the patient for consent to do a hip revision. Patient remains at high risk for recurrent dislocation, especially if transferred [place] [facility] [place] staff is well educated on precautions. Continue with current cares. Continue wedge pillow and straight leg immobilizer to minimize risk. Encourage participation in therapies to work with him on precautions and ambulation. Continue with bowel motivation. Recheck labs in AM to monitor blood counts, electrolytes and renal function. 02/16/18 [place] - Covering for Dr Lewis Clinically doing well. Forgetful about hip precautions. Plavix on hold for upcoming surgical procedure. Will start SCD for DVT prevention. Blood pressure and blood sugars stable - continue with current treatment. Encourage participation in therapies to work with him on precautions and ambulation. Patient remains at high risk for recurrent dislocation, especially if transferred to [facility] [place] [facility] nursing staff is well educated on precautions. Anticipate Dr Lewis's return tomorrow. 02/19/18 [place] - Covering for Dr Lewis Will decrease IVF to 50cc/hr - oral drive with decrease. Encourage nursing to give Dulcolax to help with bowel function. Urine output slow-will place Herman, start bladder retraining, and initiate Flomax. Nursing not able to place Herman as pt very resistant to that intervention. Will hold on Herman, but continue Flomax. Continue with post op pain control and therapy. Blood sugars and pressure stable with current regimen. Lab ordered for tomorrow. 02/20/18 [place] - covering for Dr Lewis Hgb down to 7.0; will type and cross for 1 unit PRBC. With weight trending up give Lasix post-transfusion. DC IVF. Oral intake starting to improve today. Start tracking I/O - if UO does not improve may need to restart IVF. Renal function is stable. Constipation - BM on 02/1802/21/[address] Lewis Hgb 7.4, s/p 1 unit PRBC transfusion yesterday (and 2 units on 02/14). Dressing is reportedly c/d/i without drainage. Check stool for occult blood. Iron level was low at 34 on on 02/11. Platelets also showing downward trend: Hold naproxen & ASA. He is hemodynamically stable. Weight continues to trend up; he is up 6 kg from date of admission. Anemia could be partly dilutional in nature. Unable to calculate I/O d/t urinary incontinence. He is maintaining saturations on room air. CXR yesterday was negative. Electrolytes/renal function stable.
[2018-02-22] MEDS: AMLODIPINE 5 MG TABLET PO SCH (10:18)
[2018-02-22] MEDS: SALINE FLUSH 10ml SYRINGE IV PRN (10:18)
[2018-02-22] MEDS: POLYETHYL GLYCOL 3350 17gm PACKET PO SCH (10:18)
[2018-02-22] MEDS: ACETAMINOPHEN 325 MG TABLET PO SCH ×4 (10:19→20:51)
[2018-02-22] MEDS: SENNA + DOCUSATE TABLET PO SCH ×2 (10:19→20:53)
[2018-02-22] MEDS: ESCITALOPRAM 20 MG TABLET PO SCH (10:20)
[2018-02-22] MEDS: CARVEDILOL 6.25 MG TABLET PO SCH ×2 (10:20→16:50)
[2018-02-22] MEDS: CLOPIDOGREL 75 MG TABLET PO SCH (10:20)
--- NOTE | 2018-02-22 14:16 | Progress Note ---
- Date 02/22/18 Subjective: Mr. Mahajan was resting in bed when seen this morning. He reported minimal pain in his right hip and indicated that he would try to do some exercises with staff later today. He denied dyspnea, cough, chest pain, nausea, or dizziness. His appetite is good and is having bowel movements regularly. He denied any concerns. Nursing reports patient voiding well and intermittently incontinent. Objective Vital signs: Temperature 97.3 F 02/22/18 12:00 Pulse Rate 58 L 02/22/18 12:00 Respiratory Rate 14 02/22/18 12:00 Blood Pressure 112/63 02/22/18 12:00 Pulse Oximetry 96 -RA 02/22/18 12:00 I/O-incomplete, weight down 3 kg NAD, alert, more talkative today than when seen yesterday Conjunctiva clear, sclera anicteric, conjugate gaze Respirations nonlabored, anterior breath sounds clear Regular rhythm, [id number] heart tones Abdomen soft, nontender, bowel sounds present Extremities without edema, internal rotation of the right foot. 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 Oral iron initiated. Hemoccult pending. Anticipate probable need for additional blood tomorrow, type and screen in a.m. Iron level was low at 34 on on 02/11. Hold naproxen & ASA. May be hemolyzing blood previously transfused, bilirubin normal yesterday-Check haptoglobin/LDH with labs tomorrow. Weight down 3 kg from yesterday but remains positive through the hospitalization and hemoglobin down slightly despite negative fluid balance yesterday. Patient describe dysuria yesterday and urinary frequency which he indicated has been present for about 6 months, UA negative. Urine volumes improving since Flomax initiated. Constipation resolved. Limited activity with physical therapy; guardianship pending to permit placement. Discussed with nursing. DVT Prophylaxis: SCD's, other (aspirin Plavix) GI Prophylaxis: Rantidine Resuscitation Status: Full Code - Physician Narrative Narrative: Date: 02/22/18 Time: 1411 Hospital Course Summary Disclaimer: The visit summary below is not to be considered part of the above Progress Note. 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 Psychiatric evaluation suggested that the patient is not competent to make his own medication decisions. Case management is working on obtaining a guardian for the patient for consent to do a hip revision. Patient remains at high risk for recurrent dislocation, especially if transferred to [facility] [place] nursing staff is well educated on precautions. Continue with current cares. Continue wedge pillow and straight leg immobilizer to minimize risk. Encourage participation in therapies to work with him on precautions and ambulation. Continue with bowel motivation. Recheck labs in AM to monitor blood counts, electrolytes and renal function. 02/16/18 [place] - Covering for Dr Lewis Clinically doing well. Forgetful about hip precautions. Plavix on hold for upcoming surgical procedure. Will start SCD for DVT prevention. Blood pressure and blood sugars stable - continue with current treatment. Encourage participation in therapies to work with him on precautions and ambulation. Patient remains at high risk for recurrent dislocation, especially if transferred to [facility] [place] nursing staff is well educated on precautions. Anticipate Dr Lewis's return tomorrow. 02/19/18 [place] - Covering for Dr Lewis Will decrease IVF to 50cc/hr - oral drive with decrease. Encourage nursing to give Dulcolax to help with bowel function. Urine output slow-will place Herman, start bladder retraining, and initiate Flomax. Nursing not able to place Herman as pt very resistant to that intervention. Will hold on Herman, but continue Flomax. Continue with post op pain control and therapy. Blood sugars and pressure stable with current regimen. Lab ordered for tomorrow. 02/20/18 [place] - covering for Dr Lewis Hgb down to 7.0; will type and cross for 1 unit PRBC. With weight trending up give Lasix post-transfusion. DC IVF. Oral intake starting to improve today. Start tracking I/O - if UO does not improve may need to restart IVF. Renal function is stable. Constipation - BM on 02/1802/21/[address] Lewis Hgb 7.4, s/p 1 unit PRBC transfusion yesterday (and 2 units on 02/14). Dressing is reportedly c/d/i without drainage. Check stool for occult blood. Iron level was low at 34 on on 02/11. Platelets also showing downward trend: Hold naproxen & ASA. He is hemodynamically stable. Weight continues to trend up; he is up 6 kg from date of admission. Anemia could be partly dilutional in nature. Unable to calculate I/O d/t urinary incontinence. He is maintaining saturations on room air. CXR yesterday was negative. Electrolytes/renal function stable. 02/22/18 Hgb 7.2, s/p 3 unit PRBC during hospital course and has been treated with IV iron. Oral iron initiated. Hemoccult pending. Anticipate probable need for additional blood tomorrow, type and screen in a.m. Iron level was low at 34 on on 02/11. Hold naproxen & ASA. May be hemolyzing blood previously transfused, bilirubin normal yesterday-Check haptoglobin/LDH with labs tomorrow. Weight down 3 kg from yesterday but remains positive through the hospitalization and hemoglobin down slightly despite negative fluid balance yesterday. Patient describe dysuria yesterday and urinary frequency which he indicated has been present for about 6 months, UA negative. Urine volumes improving since Flomax initiated. Constipation resolved. Limited activity with physical therapy; guardianship pending to permit placement.
[2018-02-22] MEDS: QUETIAPINE 50 MG TABLET PO SCH (20:51)
[2018-02-22] MEDS: TAMSULOSIN 0.4 MG CAPSULE PO SCH (20:53)
[2018-02-22] MEDS: RANITIDINE 300 MG TABLET PO SCH (20:53)
[2018-02-22] MEDS: SUCRALFATE 1 GM TABLET PO SCH (20:53)
[2018-02-23] MEDS: TRAMADOL 50 MG TABLET PO PRN ×2 (02:09→04:24)
[2018-02-23] MEDS: NOZIN NASAL SWAB NAS SCH ×3 (05:50→21:11)
[2018-02-23] MEDS: ACETAMINOPHEN 325 MG TABLET PO SCH ×4 (11:01→21:12)
[2018-02-23] MEDS: CARVEDILOL 6.25 MG TABLET PO SCH ×2 (11:01→17:37)
[2018-02-23] MEDS: CLOPIDOGREL 75 MG TABLET PO SCH (11:01)
[2018-02-23] MEDS: FERROUS GLUCONATE 324 MG TABLET PO SCH (11:01)
[2018-02-23] MEDS: ESCITALOPRAM 20 MG TABLET PO SCH (11:02)
[2018-02-23] MEDS: SENNA + DOCUSATE TABLET PO SCH ×2 (11:02→21:12)
[2018-02-23] MEDS: POLYETHYL GLYCOL 3350 17gm PACKET PO SCH ×2 (11:02→21:11)
[2018-02-23] MEDS: AMLODIPINE 5 MG TABLET PO SCH (11:02)
--- NOTE | 2018-02-23 12:30 | Progress Note ---
- Date 02/23/18 Subjective: Mr. Mahajan resting in bed when seen. He appeared comfortable and described his right hip as "aching" indicating that he takes pain medication about every other day. Nursing reports he's been using Tylenol today and review of medications administered suggest taking Tylenol 3-4 times daily although he had tramadol twice overnight. The patient denies any other pain, he denies dyspnea, palpitations, nausea, or lightheadedness. No urinary symptoms described today. He indicated he has not yet been out of bed or side at the bedside today. He is unsure when his last bowel movement is but reports MiraLAX was given earlier today. Objective Vital signs: Temperature 98 F 02/23/18 08:00 Pulse Rate 68 02/23/18 08:00 Respiratory Rate 16 02/23/18 08:00 Blood Pressure 124/65 02/23/18 08:00 Pulse Oximetry 97 - RA 02/23/18 08:00 I/O 1590/90 NAD, alert-recognizes me from prior days, oriented to [facility], 02/23/18. Can correctly identify indication for hospitalization and told me about his 's hospitalization in [place]. 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 Oral iron initiated. Hemoccult pending. Continue iron therapy; no clear evidence of hemolysis thus far. Continue to monitor hemoglobin daily until above 8. Last bowel movement at least 4-5 days ago-MiraLAX/Senokot doses increased; may require milk of magnesia or alternate stimulant. Much more interactive/appropriate responses today. Will discuss with case management tomorrow, may benefit from repeat psychiatric assessment of competency. Limited activity with physical therapy; guardianship pending to permit placement. Discussed with nursing. - Physician Narrative Narrative: Date: 02/23/18 Time: 1214 Hospital Course Summary Disclaimer: The visit summary below is not to be considered part of the above Progress Note. 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 Psychiatric evaluation suggested that the patient is not competent to make his own medication decisions. Case management is working on obtaining a guardian for the patient for consent to do a hip revision. Patient remains at high risk for recurrent dislocation, especially if transferred to jail as [facility] nursing staff is well educated on precautions. Continue with current cares. Continue wedge pillow and straight leg immobilizer to minimize risk. Encourage participation in therapies to work with him on precautions and ambulation. Continue with bowel motivation. Recheck labs in AM to monitor blood counts, electrolytes and renal function. 02/16/18 [place] - Covering for Dr Lewis Clinically doing well. Forgetful about hip precautions. Plavix on hold for upcoming surgical procedure. Will start SCD for DVT prevention. Blood pressure and blood sugars stable - continue with current treatment. Encourage participation in therapies to work with him on precautions and ambulation. Patient remains at high risk for recurrent dislocation, especially if transferred to jail as [facility] nursing staff is well educated on precautions. Anticipate Dr Lewis's return tomorrow. 02/19/18 [place] - Covering for Dr Lewis Will decrease IVF to 50cc/hr - oral drive with decrease. Encourage nursing to give Dulcolax to help with bowel function. Urine output slow-will place Herman, start bladder retraining, and initiate Flomax. Nursing not able to place Herman as pt very resistant to that intervention. Will hold on Herman, but continue Flomax. Continue with post op pain control and therapy. Blood sugars and pressure stable with current regimen. Lab ordered for tomorrow. 02/20/18 [place] - covering for Dr Lewis Hgb down to 7.0; will type and cross for 1 unit PRBC. With weight trending up give Lasix post-transfusion. DC IVF. Oral intake starting to improve today. Start tracking I/O - if UO does not improve may need to restart IVF. Renal function is stable. Constipation - BM on 02/1802/21/[address] Lewis Hgb 7.4, s/p 1 unit PRBC transfusion yesterday (and 2 units on 02/14). Dressing is reportedly c/d/i without drainage. Check stool for occult blood. Iron level was low at 34 on on 02/11. Platelets also showing downward trend: Hold naproxen & ASA. He is hemodynamically stable. Weight continues to trend up; he is up 6 kg from date of admission. Anemia could be partly dilutional in nature. Unable to calculate I/O d/t urinary incontinence. He is maintaining saturations on room air. CXR yesterday was negative. Electrolytes/renal function stable. 02/22/18 Hgb 7.2, s/p 3 unit PRBC during hospital course and has been treated with IV iron. Oral iron initiated. Hemoccult pending. Anticipate probable need for additional blood tomorrow, type and screen in a.m. Iron level was low at 34 on on 02/11. Hold naproxen & ASA. May be hemolyzing blood previously transfused, bilirubin normal yesterday-Check haptoglobin/LDH with labs tomorrow. Weight down 3 kg from yesterday but remains positive through the hospitalization and hemoglobin down slightly despite negative fluid balance yesterday. Patient describe dysuria yesterday and urinary frequency which he indicated has been present for about 6 months, UA negative. Urine volumes improving since Flomax initiated. Constipation resolved. Limited activity with physical therapy; guardianship pending to permit placement. 02/23/18 Hgb 7.6-slightly improved today, s/p 3 unit PRBC during hospital course and (2 units preceded VAIBHAV) and has been treated with IV iron. Oral iron initiated. Hemoccult pending. Continue iron therapy; no clear evidence of hemolysis thus far. Continue to monitor hemoglobin daily until above 8. Last bowel movement at least 4-5 days ago-MiraLAX/Senokot doses increased; may require milk of magnesia or alternate stimulant. Much more interactive/appropriate responses today. Will discuss with case management tomorrow, may benefit from repeat psychiatric assessment of competency.
[2018-02-23] MEDS: RANITIDINE 300 MG TABLET PO SCH (21:11)
[2018-02-23] MEDS: QUETIAPINE 50 MG TABLET PO SCH (21:12)
[2018-02-23] MEDS: SUCRALFATE 1 GM TABLET PO SCH (21:12)
[2018-02-23] MEDS: TAMSULOSIN 0.4 MG CAPSULE PO SCH (21:12)
[2018-02-24] MEDS: NOZIN NASAL SWAB NAS SCH ×3 (06:10→21:11)
[2018-02-24] MEDS: ACETAMINOPHEN 325 MG TABLET PO SCH ×4 (09:06→21:11)
[2018-02-24] MEDS: AMLODIPINE 5 MG TABLET PO SCH (09:06)
[2018-02-24] MEDS: POLYETHYL GLYCOL 3350 17gm PACKET PO SCH ×2 (09:06→20:22)
[2018-02-24] MEDS: FERROUS GLUCONATE 324 MG TABLET PO SCH (09:07)
[2018-02-24] MEDS: CLOPIDOGREL 75 MG TABLET PO SCH (09:07)
[2018-02-24] MEDS: CARVEDILOL 6.25 MG TABLET PO SCH ×2 (09:07→17:03)
[2018-02-24] MEDS: ESCITALOPRAM 20 MG TABLET PO SCH (09:07)
[2018-02-24] MEDS: SENNA + DOCUSATE TABLET PO SCH ×2 (09:09→21:11)
--- NOTE | 2018-02-24 09:29 | Progress Note ---
- Date 02/24/18 Subjective: Jonathan was still in bed - I stopped by just before 0800. He was awake but drowsy and didn't answer all questions as readily as he previously had. He didn' t remember meeting me earlier in his hospitalization. He reported that his leg hurts but denied chest pain, SOA, or abdominal pain. Nursing staff reported that he's been pleasant and cooperative. Objective Vital signs: Temperature 98.7 F 02/24/18 07:51 Pulse Rate 66 02/24/18 07:51 Respiratory Rate 18 02/24/18 07:51 Blood Pressure 135/69 02/24/18 07:51 Pulse Oximetry 96 02/24/18 07:51 Height/Weight/BMI: Weight 103 kg - Constitutional Present: no acute distress, well nourished, well developed - Routine HEENT Exam Head: Present: normocephalic Eye: Present: PERRL. Absent: conjunctival icterus, scleral injection - Routine Respiratory Exam Present: CTA bilaterally (anteriorly) - Routine Cardiovascular Exam Present: RRR, S1, S2 - Routine Abdominal Exam Present: soft, normoactive bowel sounds, non distended, non tender - Routine Extremities Exam Present: no edema - Routine Musculoskeletal Exam Musculoskeletal: Present: other (right leg internally rotated) - Routine Skin Exam Present: intact, dry, warm Comments: dressing to right hip c/d/i - Routine Neurological Exam Present: alert (drowsy but appropriate) - Routine Psychiatric Exam Present: cooperative Results - Labs CBC & Chem 7: 02/24/18 04:12 02/22/18 04:09 Assessment and Plan (1) Hip dislocation, right Problem details: Recurrent, closed reduction in OR 02/04/18, 02/06/18, 02/12/18--> VAIBHAV 02/18/18 Current visit: Yes Status: Acute Assessment and Plan: Assessment: 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 Stool for occult blood is pending. B12 also pending. Continue iron. ASA and Naproxen are on hold. Constipation - last BM 5/25 per RN. Will give Dulcolax today if no results. Good oral intake. VSS; hemodynamically stable. Repeat BMP and CBC in am. Discussed with nursing staff. GI Prophylaxis: Rantidine Resuscitation Status: Full Code - Physician Narrative Physician: Flora Lopez MD Narrative: Date: 02/24/18 Time: 1405 SI have independently evaluated and examined this patient. I reviewed the chart , the patient's history, and the ENROLLED AGENT/PA's documented findings as above. We discussed and formulated the assessment and plan as above with additions as below: Mr. Chatterjee was up in a chair when seen late this morning. He reported that he had mild discomfort in his right hip when he stood to transfer into the chair but feels fine now that he seated. He otherwise denied any concerns. When asked if he has been doing exercises he began flexing and extending both feet at the ankles. NAD, alert, cooperative Respirations nonlabored, abdomen soft, nontender, bowel sounds present Haptoglobin/B-12 pending. Hemoglobin relatively stable. Discussed with nursing and case management. Hospital Course Summary Disclaimer: The visit summary below is not to be considered part of the above Progress Note. 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 Psychiatric evaluation suggested that the patient is not competent to make his own medication decisions. Case management is working on obtaining a guardian for the patient for consent to do a hip revision. Patient remains at high risk for recurrent dislocation, especially if transferred to half-way as [facility] nursing staff is well educated on precautions. Continue with current cares. Continue wedge pillow and straight leg immobilizer to minimize risk. Encourage participation in therapies to work with him on precautions and ambulation. Continue with bowel motivation. Recheck labs in AM to monitor blood counts, electrolytes and renal function. 02/16/18 [place] - Covering for Dr Lewis Clinically doing well. Forgetful about hip precautions. Plavix on hold for upcoming surgical procedure. Will start SCD for DVT prevention. Blood pressure and blood sugars stable - continue with current treatment. Encourage participation in therapies to work with him on precautions and ambulation. Patient remains at high risk for recurrent dislocation, especially if transferred to half-way as [facility] nursing staff is well educated on precautions. Anticipate Dr Lewis's return tomorrow. 02/19/18 [place] - Covering for Dr Lewis Will decrease IVF to 50cc/hr - oral drive with decrease. Encourage nursing to give Dulcolax to help with bowel function. Urine output slow-will place Herman, start bladder retraining, and initiate Flomax. Nursing not able to place Herman as pt very resistant to that intervention. Will hold on Herman, but continue Flomax. Continue with post op pain control and therapy. Blood sugars and pressure stable with current regimen. Lab ordered for tomorrow. 02/20/18 [place] - covering for Dr Lewis Hgb down to 7.0; will type and cross for 1 unit PRBC. With weight trending up give Lasix post-transfusion. DC IVF. Oral intake starting to improve today. Start tracking I/O - if UO does not improve may need to restart IVF. Renal function is stable. Constipation - BM on 02/1802/21/[address] Lewis Hgb 7.4, s/p 1 unit PRBC transfusion yesterday (and 2 units on 02/14). Dressing is reportedly c/d/i without drainage. Check stool for occult blood. Iron level was low at 34 on on 02/11. Platelets also showing downward trend: Hold naproxen & ASA. He is hemodynamically stable. Weight continues to trend up; he is up 6 kg from date of admission. Anemia could be partly dilutional in nature. Unable to calculate I/O d/t urinary incontinence. He is maintaining saturations on room air. CXR yesterday was negative. Electrolytes/renal function stable. 02/22/18 Hgb 7.2, s/p 3 unit PRBC during hospital course and has been treated with IV iron. Oral iron initiated. Hemoccult pending. Anticipate probable need for additional blood tomorrow, type and screen in a.m. Iron level was low at 34 on on 02/11. Hold naproxen & ASA. May be hemolyzing blood previously transfused, bilirubin normal yesterday-Check haptoglobin/LDH with labs tomorrow. Weight down 3 kg from yesterday but remains positive through the hospitalization and hemoglobin down slightly despite negative fluid balance yesterday. Patient describe dysuria yesterday and urinary frequency which he indicated has been present for about 6 months, UA negative. Urine volumes improving since Flomax initiated. Constipation resolved. Limited activity with physical therapy; guardianship pending to permit placement. 02/23/18 Hgb 7.6-slightly improved today, s/p 3 unit PRBC during hospital course and (2 units preceded VAIBHAV) and has been treated with IV iron. Oral iron initiated. Hemoccult pending. Continue iron therapy; no clear evidence of hemolysis thus far. Continue to monitor hemoglobin daily until above 8. Last bowel movement at least 4-5 days ago-MiraLAX/Senokot doses increased; may require milk of magnesia or alternate stimulant. Much more interactive/appropriate responses today. Will discuss with case management tomorrow, may benefit from repeat psychiatric assessment of competency. 02/24/18 Hgb 7.4. Stool for occult blood is pending. B12 also pending. Continue iron. ASA and Naproxen are on hold. Constipation - last BM 02/21 per RN. Will give Dulcolax today if no results. Good oral intake. VSS; hemodynamically stable.
[2018-02-24] MEDS ORDERED: BISACODYL 10 MG SUPPOSITORY RECTALLY PRN (09:33)
--- NOTE | 2018-02-24 17:44 | Orthopedic Progress Note ---
Date: Date: 02/24/18 Time: 1739 Subjective/Severity of Illness: Jonathan is seen after working with PT this AM. He reports pain laterally over the surgical site but not in the leg or groin. Mentation seems to be improving some. PT notes he walked 6 feet today. Orthopedic Exam Vital signs: Temperature 95.9 F L 02/05/18 15:57 Pulse Rate 64 02/05/18 15:57 Respiratory Rate 18 02/05/18 15:57 Blood Pressure 149/69 H 02/05/18 15:57 Pulse Oximetry 97 02/05/18 15:57 Vital Signs Temp Pulse Resp BP Pulse Ox 02/16/18 07:34 97.2 F 61 16 165/73 H 96 02/16/18 04:00 97.4 F 59 L 16 164/72 H 92 02/16/18 00:00 97.2 F 65 16 140/71 H 94 02/15/18 20:00 96.7 F L 66 20 106/56 93 02/15/18 16:36 96.6 F L 65 16 144/67 H 95 02/15/18 12:00 96.5 F L 61 16 159/71 H 94 Intake and Output 02/15/18 02/16/18 02/16/18 22:59 06:59 14:59 Intake Total 240 / 240 Output Total 200 / 200 350 / 350 Balance -200 / -200 -350 / -350 240 / 240 Intake: Oral 240 / 240 Output: Urine 200 / 200 350 / 350 Other: Urine Appearance Clear Clear Urine Color Yellow Yellow Stool Color Brown Stool Consistency Soft Size of Bowel Movement Smear # Voids 1 Weight 229 lb 11.547 oz Patient Weight 02/17/18 06:59 Weight 229 lb 11.547 oz - Constitutional General Appearance: Present: alert, no acute distress - Respiratory Exam Present: non-labored - Cardiovascular Exam Present: pedal pulses intact - Extremities Exam Present: no edema - Dressing Dressing: no drainage - Hip Exam right Hip Exam: Present: alignment normal (He has a tendency to internally rotate the leg but this is unchanged since surgery.) - Integumentary Exam Present: pink, warm, dry - Neurological Exam Present: no deficits - Psychiatric Exam Present: alert - Labs Result Diagrams: 02/24/18 04:12 02/22/18 04:09 Abnormal lab results 02/24/18 Range/Units 04:12 Hgb 7.4 L (13.5-17.5) GM/DL Hct 23.0 L (41-53) % H & H 02/14/18 02/14/18 02/14/18 Range/Units 04:09 13:13 17:37 Hgb 8.7 L 9.8 L D 10.6 L (13.5-17.5) GM/DL Hct 27.9 L 31.5 L D (41-53) % 02/14/18 02/16/18 02/18/18 Range/Units 21:43 04:34 03:56 Hgb 10.9 L 10.7 L 10.8 L (13.5-17.5) GM/DL Hct 33.3 L 33.4 L (41-53) % 02/18/18 02/19/18 02/20/18 Range/Units 21:15 04:47 04:18 Hgb 9.3 L D 8.5 L 7.0 L D (13.5-17.5) GM/DL Hct 28.4 L D 26.5 L 21.9 L D (41-53) % 02/20/18 02/21/18 02/22/18 Range/Units 12:49 04:31 04:09 Hgb 7.9 L D 7.4 L 7.2 L (13.5-17.5) GM/DL Hct 23.2 L 22.7 L (41-53) % 02/23/18 02/24/18 Range/Units 03:57 04:12 Hgb 7.6 L 7.4 L (13.5-17.5) GM/DL Hct 23.6 L 23.0 L (41-53) % Orthopedic Assessment and Plan (1) Hip dislocation, right Status: Acute Qualifiers: Encounter type: initial encounter Qualified Code(s): S73.004A - Unspecified dislocation of right hip, initial encounter Problem Details: Recurrent, closed reduction in OR 02/04/18, 02/06/18, 02/12/18--> VAIBHAV 02/18/18 Assessment and Plan: Mr Foley was taken to the OR on 02/04/18, 02/06/18 & 02/12/18 for closed reduction of the right hip under anesthesia. He underwent revision of the right hip on 02/18/18. Labs are stable today. Continue hip precautions. Awaiting placement instructions. 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 Gaming Will repeat xray this morning due to rotation of right hip- no dislocation. Reviewed hip precautions and strongly encouraged patient to work with Nursing and PT for mobility. Current anti-coagulation protocol- will restart Plavix 75mg daily and ASA 81mg daily for VTE prophylaxis. SCD's for added protection PT/OT services to improve independent function. Discharge Planning per Case Management- still waiting guardianship paperwork. - Additional Diagnoses Atrial Fibrillation: rate controlled Diabetes: resume oral medications, other (Has been under good control.) CAD: no active chest pain Anemia: no intervention required Hospital Course Summary Disclaimer: The visit summary below is not to be considered part of the above Progress Note. 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 Psychiatric evaluation suggested that the patient is not competent to make his own medication decisions. Case management is working on obtaining a guardian for the patient for consent to do a hip revision. Patient remains at high risk for recurrent dislocation, especially if transferred [place] alf as [facility] [place] staff is well educated on precautions. Continue with current cares. Continue wedge pillow and straight leg immobilizer to minimize risk. Encourage participation in therapies to work with him on precautions and ambulation. Continue with bowel motivation. Recheck labs in AM to monitor blood counts, electrolytes and renal function. 02/16/18 [place] - Covering for Dr Lewis Clinically doing well. Forgetful about hip precautions. Plavix on hold for upcoming surgical procedure. Will start SCD for DVT prevention. Blood pressure and blood sugars stable - continue with current treatment. Encourage participation in therapies to work with him on precautions and ambulation. Patient remains at high risk for recurrent dislocation, especially if transferred to alf as [facility] nursing staff is well educated on precautions. Anticipate Dr Lewis's return tomorrow. 02/19/18 [place] - Covering for Dr Lewis Will decrease IVF to 50cc/hr - oral drive with decrease. Encourage nursing to give Dulcolax to help with bowel function. Urine output slow-will place Herman, start bladder retraining, and initiate Flomax. Nursing not able to place Herman as pt very resistant to that intervention. Will hold on Herman, but continue Flomax. Continue with post op pain control and therapy. Blood sugars and pressure stable with current regimen. Lab ordered for tomorrow. 02/20/18 [place] - covering for Dr Lewis Hgb down to 7.0; will type and cross for 1 unit PRBC. With weight trending up give Lasix post-transfusion. DC IVF. Oral intake starting to improve today. Start tracking I/O - if UO does not improve may need to restart IVF. Renal function is stable. Constipation - BM on 02/1802/21/[address] Lewis Hgb 7.4, s/p 1 unit PRBC transfusion yesterday (and 2 units on 02/14). Dressing is reportedly c/d/i without drainage. Check stool for occult blood. Iron level was low at 34 on on 02/11. Platelets also showing downward trend: Hold naproxen & ASA. He is hemodynamically stable. Weight continues to trend up; he is up 6 kg from date of admission. Anemia could be partly dilutional in nature. Unable to calculate I/O d/t urinary incontinence. He is maintaining saturations on room air. CXR yesterday was negative. Electrolytes/renal function stable. 02/22/18 Hgb 7.2, s/p 3 unit PRBC during hospital course and has been treated with IV iron. Oral iron initiated. Hemoccult pending. Anticipate probable need for additional blood tomorrow, type and screen in a.m. Iron level was low at 34 on on 02/11. Hold naproxen & ASA. May be hemolyzing blood previously transfused, bilirubin normal yesterday-Check haptoglobin/LDH with labs tomorrow. Weight down 3 kg from yesterday but remains positive through the hospitalization and hemoglobin down slightly despite negative fluid balance yesterday. Patient describe dysuria yesterday and urinary frequency which he indicated has been present for about 6 months, UA negative. Urine volumes improving since Flomax initiated. Constipation resolved. Limited activity with physical therapy; guardianship pending to permit placement. 02/23/18 Hgb 7.6-slightly improved today, s/p 3 unit PRBC during hospital course and (2 units preceded VAIBHAV) and has been treated with IV iron. Oral iron initiated. Hemoccult pending. Continue iron therapy; no clear evidence of hemolysis thus far. Continue to monitor hemoglobin daily until above 8. Last bowel movement at least 4-5 days ago-MiraLAX/Senokot doses increased; may require milk of magnesia or alternate stimulant. Much more interactive/appropriate responses today. Will discuss with case management tomorrow, may benefit from repeat psychiatric assessment of competency. 02/24/18 Hgb 7.4. Stool for occult blood is pending. B12 also pending. Continue iron. ASA and Naproxen are on hold. Constipation - last BM 02/21 per RN. Will give Dulcolax today if no results. Good oral intake. VSS; hemodynamically stable.
[2018-02-24] MEDS: TRAMADOL 50 MG TABLET PO PRN (19:21)
[2018-02-24] MEDS: RANITIDINE 300 MG TABLET PO SCH (21:11)
[2018-02-24] MEDS: QUETIAPINE 50 MG TABLET PO SCH (21:11)
[2018-02-24] MEDS: SUCRALFATE 1 GM TABLET PO SCH (21:11)
[2018-02-24] MEDS: TAMSULOSIN 0.4 MG CAPSULE PO SCH (21:12)
[2018-02-25] MEDS: NOZIN NASAL SWAB NAS SCH ×3 (06:19→21:30)
--- NOTE | 2018-02-25 08:00 | Orthopedic Progress Note ---
Date: Date: 02/25/18 Time: 755 Subjective/Severity of Illness: Mr. Palafox complains of mild right lateral hip pain at incision site. Reportedly has walked 6ft with PT. He is oriented to person and place this morning, however reports he has had surgery to have his "bowels removed". Nurses report BM last night, patient denies abdominal pain, nausea. ASA and naproxen on hold due to anemia. Hgb 7.3 this morning. Denies CP, SOA. Orthopedic Exam Vital signs: Temperature 95.9 F L 02/05/18 15:57 Pulse Rate 64 02/05/18 15:57 Respiratory Rate 18 02/05/18 15:57 Blood Pressure 149/69 H 02/05/18 15:57 Pulse Oximetry 97 02/05/18 15:57 Vital Signs Temp Pulse Resp BP Pulse Ox 02/16/18 07:34 97.2 F 61 16 165/73 H 96 02/16/18 04:00 97.4 F 59 L 16 164/72 H 92 02/16/18 00:00 97.2 F 65 16 140/71 H 94 02/15/18 20:00 96.7 F L 66 20 106/56 93 02/15/18 16:36 96.6 F L 65 16 144/67 H 95 02/15/18 12:00 96.5 F L 61 16 159/71 H 94 Intake and Output 02/15/18 02/16/18 02/16/18 22:59 06:59 14:59 Intake Total 240 / 240 Output Total 200 / 200 350 / 350 Balance -200 / -200 -350 / -350 240 / 240 Intake: Oral 240 / 240 Output: Urine 200 / 200 350 / 350 Other: Urine Appearance Clear Clear Urine Color Yellow Yellow Stool Color Brown Stool Consistency Soft Size of Bowel Movement Smear # Voids 1 Weight 229 lb 11.547 oz Patient Weight 02/17/18 06:59 Weight 229 lb 11.547 oz - Constitutional General Appearance: Present: alert, orientated x2, no acute distress, well nourished - Respiratory Exam Present: CTA bilaterally, non-labored - Cardiovascular Exam Present: Regular Rate/Rhythm, pedal pulses intact - Abdominal Exam Present: soft, normoactive BS x4 - Extremities Exam Present: no edema - Dressing Dressing: no drainage - Hip Exam right Hip Exam: Present: alignment normal (He has a tendency to internally rotate the leg but this is unchanged since surgery.) - Integumentary Exam Present: pink, warm, dry - Neurological Exam Present: no deficits - Psychiatric Exam Present: alert - Labs Result Diagrams: 02/25/18 04:11 02/25/18 04:11 Abnormal lab results 02/25/18 Range/Units 04:11 RBC 2.73 L (4.50-5.90) M/MM3 Hgb 7.3 L (13.5-17.5) GM/DL Hct 23.2 L (41-53) % RDW Std Deviation 51.0 H (36.9-50.2) FL MPV 9.0 L (9.4-12.4) UM3 Immature Gran % (Auto) 2.2 H (0.0-0.5) % [place] % (Auto) 13.2 H (0-9.0) % Eos % (Auto) 4.7 H (0-4) % [place] # (Auto) 1.0 H (0-0.8) T/MM3 Abs Immat Gran (auto) 0.17 H (0.00-0.03) T/MM3 H & H 02/14/18 02/14/18 02/14/18 Range/Units 04:09 13:13 17:37 Hgb 8.7 L 9.8 L D 10.6 L (13.5-17.5) GM/DL Hct 27.9 L 31.5 L D (41-53) % 02/14/18 02/16/18 02/18/18 Range/Units 21:43 04:34 03:56 Hgb 10.9 L 10.7 L 10.8 L (13.5-17.5) GM/DL Hct 33.3 L 33.4 L (41-53) % 02/18/18 02/19/18 02/20/18 Range/Units 21:15 04:47 04:18 Hgb 9.3 L D 8.5 L 7.0 L D (13.5-17.5) GM/DL Hct 28.4 L D 26.5 L 21.9 L D (41-53) % 02/20/18 02/21/18 02/22/18 Range/Units 12:49 04:31 04:09 Hgb 7.9 L D 7.4 L 7.2 L (13.5-17.5) GM/DL Hct 23.2 L 22.7 L (41-53) % 02/23/18 02/24/18 02/25/18 Range/Units 03:57 04:12 04:11 Hgb 7.6 L 7.4 L 7.3 L (13.5-17.5) GM/DL Hct 23.6 L 23.0 L 23.2 L (41-53) % Orthopedic Assessment and Plan (1) Hip dislocation, right Status: Acute Qualifiers: Encounter type: initial encounter Qualified Code(s): S73.004A - Unspecified dislocation of right hip, initial encounter Problem Details: Recurrent, closed reduction in OR 02/04/18, 02/06/18, 02/12/18--> VAIBHAV 02/18/18 Assessment and Plan: Mr Foley was taken to the OR on 02/04/18, 02/06/18 & 02/12/18 for closed reduction of the right hip under anesthesia. He underwent revision of the right hip on 02/18/18. Continue hip precautions. Awaiting placement instructions. 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 Gaming Current anti-coagulation protocol- Plavix 75mg daily. ASA 81mg on hold due to continued anemia. SCD's for added protection Dr. James managing medically - hospitalist covering at this time. PT/OT services to improve independent function. Discharge Planning per Case Management- still waiting guardianship. - Additional Diagnoses Atrial Fibrillation: rate controlled Diabetes: resume oral medications, other (Has been under good control.) CAD: no active chest pain Anemia: no intervention required Hospital Course Summary Disclaimer: The visit summary below is not to be considered part of the above Progress Note. 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 Psychiatric evaluation suggested that the patient is not competent to make his own medication decisions. Case management is working on obtaining a guardian for the patient for consent to do a hip revision. Patient remains at high risk for recurrent dislocation, especially if transferred to [place] [facility] nursing staff is well educated on precautions. Continue with current cares. Continue wedge pillow and straight leg immobilizer to minimize risk. Encourage participation in therapies to work with him on precautions and ambulation. Continue with bowel motivation. Recheck labs in AM to monitor blood counts, electrolytes and renal function. 02/16/18 [place] - Covering for Dr Lewis Clinically doing well. Forgetful about hip precautions. Plavix on hold for upcoming surgical procedure. Will start SCD for DVT prevention. Blood pressure and blood sugars stable - continue with current treatment. Encourage participation in therapies to work with him on precautions and ambulation. Patient remains at high risk for recurrent dislocation, especially if transferred to [place] [facility] nursing staff is well educated on precautions. Anticipate Dr Lewis's return tomorrow. 02/19/18 [place] - Covering for Dr Lewis Will decrease IVF to 50cc/hr - oral drive with decrease. Encourage nursing to give Dulcolax to help with bowel function. Urine output slow-will place Herman, start bladder retraining, and initiate Flomax. Nursing not able to place Herman as pt very resistant to that intervention. Will hold on Herman, but continue Flomax. Continue with post op pain control and therapy. Blood sugars and pressure stable with current regimen. Lab ordered for tomorrow. 02/20/18 [place] - covering for Dr Lewis Hgb down to 7.0; will type and cross for 1 unit PRBC. With weight trending up give Lasix post-transfusion. DC IVF. Oral intake starting to improve today. Start tracking I/O - if UO does not improve may need to restart IVF. Renal function is stable. Constipation - BM on 02/1802/21/[address] Lewis Hgb 7.4, s/p 1 unit PRBC transfusion yesterday (and 2 units on 02/14). Dressing is reportedly c/d/i without drainage. Check stool for occult blood. Iron level was low at 34 on on 02/11. Platelets also showing downward trend: Hold naproxen & ASA. He is hemodynamically stable. Weight continues to trend up; he is up 6 kg from date of admission. Anemia could be partly dilutional in nature. Unable to calculate I/O d/t urinary incontinence. He is maintaining saturations on room air. CXR yesterday was negative. Electrolytes/renal function stable. 02/22/18 Hgb 7.2, s/p 3 unit PRBC during hospital course and has been treated with IV iron. Oral iron initiated. Hemoccult pending. Anticipate probable need for additional blood tomorrow, type and screen in a.m. Iron level was low at 34 on on 02/11. Hold naproxen & ASA. May be hemolyzing blood previously transfused, bilirubin normal yesterday-Check haptoglobin/LDH with labs tomorrow. Weight down 3 kg from yesterday but remains positive through the hospitalization and hemoglobin down slightly despite negative fluid balance yesterday. Patient describe dysuria yesterday and urinary frequency which he indicated has been present for about 6 months, UA negative. Urine volumes improving since Flomax initiated. Constipation resolved. Limited activity with physical therapy; guardianship pending to permit placement. 02/23/18 Hgb 7.6-slightly improved today, s/p 3 unit PRBC during hospital course and (2 units preceded VAIBHAV) and has been treated with IV iron. Oral iron initiated. Hemoccult pending. Continue iron therapy; no clear evidence of hemolysis thus far. Continue to monitor hemoglobin daily until above 8. Last bowel movement at least 4-5 days ago-MiraLAX/Senokot doses increased; may require milk of magnesia or alternate stimulant. Much more interactive/appropriate responses today. Will discuss with case management tomorrow, may benefit from repeat psychiatric assessment of competency. 02/24/18 Hgb 7.4. Stool for occult blood is pending. B12 also pending. Continue iron. ASA and Naproxen are on hold. Constipation - last BM 02/21 per RN. Will give Dulcolax today if no results. Good oral intake. VSS; hemodynamically stable.
[2018-02-25] MEDS: POLYETHYL GLYCOL 3350 17gm PACKET PO SCH ×3 (08:48→21:43)
[2018-02-25] MEDS: FERROUS GLUCONATE 324 MG TABLET PO SCH (08:48)
[2018-02-25] MEDS: ESCITALOPRAM 20 MG TABLET PO SCH (08:48)
[2018-02-25] MEDS: TRAMADOL 50 MG TABLET PO PRN ×2 (08:48→16:44)
[2018-02-25] MEDS: CARVEDILOL 6.25 MG TABLET PO SCH ×2 (08:48→16:42)
[2018-02-25] MEDS: AMLODIPINE 5 MG TABLET PO SCH (08:49)
[2018-02-25] MEDS: ACETAMINOPHEN 325 MG TABLET PO SCH ×5 (08:49→21:43)
[2018-02-25] MEDS: SENNA + DOCUSATE TABLET PO SCH ×3 (08:49→21:43)
[2018-02-25] MEDS: CLOPIDOGREL 75 MG TABLET PO SCH (08:49)
--- NOTE | 2018-02-25 09:11 | Progress Note ---
- Date 02/25/18 Subjective: Jonathan was resting in bed, waiting for breakfast. He complains of right hip pain but denies pain elsewhere. He reports having a restful night. He denies feeling short of breath. He states that his appetite has been adequate and he had a recent bowel movement (RN reported a large BM last night). He was oriented x3, knew he was in [facility] and knew the month/year. Earlier this morning he was irritable with nursing staff (with repositioning). He denies weakness/ dizziness/lightheadedness. Objective Vital signs: Temperature 97.2 F 02/25/18 07:48 Pulse Rate 67 02/25/18 07:48 Respiratory Rate 16 02/25/18 08:48 Blood Pressure 138/69 02/25/18 07:48 Pulse Oximetry 98 02/25/18 07:48 Height/Weight/BMI: Weight 104.6 kg - Constitutional Present: no acute distress, well nourished, well developed - Routine HEENT Exam Head: Present: normocephalic Eye: Present: PERRL. Absent: conjunctival icterus, scleral injection ENT: Present: mucous membranes moist, oropharynx clear - Routine Respiratory Exam Present: CTA bilaterally - Routine Cardiovascular Exam Present: RRR, S1, S2 - Routine Abdominal Exam Present: soft, normoactive bowel sounds, non distended, non tender - Routine Extremities Exam Present: no edema, pulses intact - Routine Musculoskeletal Exam Musculoskeletal: Present: other (right leg internally rotated) - Routine Skin Exam Present: intact, dry, warm, wounds (mepilex dsg to right hip c/d/i) - Routine Neurological Exam Present: alert, oriented X3, CN II-XII intact, normal speech - Routine Psychiatric Exam Present: normal affect, normal thought process, cooperative Results - Labs CBC & Chem 7: 02/25/18 04:11 02/25/18 04:11 Assessment and Plan (1) Hip dislocation, right Problem details: Recurrent, closed reduction in OR 02/04/18, 02/06/18, 02/12/18--> VAIBHAV 02/18/18 Current visit: Yes Status: Acute Assessment and Plan: Assessment: 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 Lewis Hgb 7.3. Stool for occult blood is pending (had BM last night but Hemoccult was not sent). B12 low normal at 272 - methylmalonic acid level ordered. Haptoglobin pending. Continue iron. ASA and Naproxen are on hold. Continues on Plavix. VSS; hemodynamically stable. Largely asymptomatic in regards to persistent anemia. Discussed with nursing staff. Continue PT/OT. DVT Prophylaxis: SCD's GI Prophylaxis: Rantidine Resuscitation Status: Full Code - Physician Narrative Physician: Flora Lopez MD Narrative: Date: 02/25/18 Time: 1345 I have independently evaluated and examined this patient. I reviewed the chart, the patient's history, and the [employer]/PA's documented findings as above. We discussed and formulated the assessment and plan as above with additions as below: Mr. Mahajan is reports he had a bowel movement; he denies dyspnea or pain. NAD, resting in bed comfortably, respirations nonlabored with good airflow, breath sounds clear anteriorly. Weight is up 2 kg over the past 48 hours-Lasix to be given again today. Methylmalonic acid drawn, initiate oral B-12 supplementation. Case management clarifying guardianship versus 's ability to function as DPOA at this time. Hospital Course Summary Disclaimer: The visit summary below is not to be considered part of the above Progress Note. 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 Psychiatric evaluation suggested that the patient is not competent to make his own medication decisions. Case management is working on obtaining a guardian for the patient for consent to do a hip revision. Patient remains at high risk for recurrent dislocation, especially if transferred [facility] as [facility] nursing staff is well educated on precautions. Continue with current cares. Continue wedge pillow and straight leg immobilizer to minimize risk. Encourage participation in therapies to work with him on precautions and ambulation. Continue with bowel motivation. Recheck labs in AM to monitor blood counts, electrolytes and renal function. 02/16/18 [place] - Covering for Dr Lewis Clinically doing well. Forgetful about hip precautions. Plavix on hold for upcoming surgical procedure. Will start SCD for DVT prevention. Blood pressure and blood sugars stable - continue with current treatment. Encourage participation in therapies to work with him on precautions and ambulation. Patient remains at high risk for recurrent dislocation, especially if transferred to jail as [facility] nursing staff is well educated on precautions. Anticipate Dr Lewis's return tomorrow. 02/19/18 [place] - Covering for Dr Lewis Will decrease IVF to 50cc/hr - oral drive with decrease. Encourage nursing to give Dulcolax to help with bowel function. Urine output slow-will place Herman, start bladder retraining, and initiate Flomax. Nursing not able to place Ehrman as pt very resistant to that intervention. Will hold on Herman, but continue Flomax. Continue with post op pain control and therapy. Blood sugars and pressure stable with current regimen. Lab ordered for tomorrow. 02/20/18 [place] - covering for Dr Lewis Hgb down to 7.0; will type and cross for 1 unit PRBC. With weight trending up give Lasix post-transfusion. DC IVF. Oral intake starting to improve today. Start tracking I/O - if UO does not improve may need to restart IVF. Renal function is stable. Constipation - BM on 02/1802/21/[address] Lewis Hgb 7.4, s/p 1 unit PRBC transfusion yesterday (and 2 units on 02/14). Dressing is reportedly c/d/i without drainage. Check stool for occult blood. Iron level was low at 34 on on 02/11. Platelets also showing downward trend: Hold naproxen & ASA. He is hemodynamically stable. Weight continues to trend up; he is up 6 kg from date of admission. Anemia could be partly dilutional in nature. Unable to calculate I/O d/t urinary incontinence. He is maintaining saturations on room air. CXR yesterday was negative. Electrolytes/renal function stable. 02/22/18 Hgb 7.2, s/p 3 unit PRBC during hospital course and has been treated with IV iron. Oral iron initiated. Hemoccult pending. Anticipate probable need for additional blood tomorrow, type and screen in a.m. Iron level was low at 34 on on 02/11. Hold naproxen & ASA. May be hemolyzing blood previously transfused, bilirubin normal yesterday-Check haptoglobin/LDH with labs tomorrow. Weight down 3 kg from yesterday but remains positive through the hospitalization and hemoglobin down slightly despite negative fluid balance yesterday. Patient describe dysuria yesterday and urinary frequency which he indicated has been present for about 6 months, UA negative. Urine volumes improving since Flomax initiated. Constipation resolved. Limited activity with physical therapy; guardianship pending to permit placement. 02/23/18 Hgb 7.6-slightly improved today, s/p 3 unit PRBC during hospital course and (2 units preceded VAIBHAV) and has been treated with IV iron. Oral iron initiated. Hemoccult pending. Continue iron therapy; no clear evidence of hemolysis thus far. Continue to monitor hemoglobin daily until above 8. Last bowel movement at least 4-5 days ago-MiraLAX/Senokot doses increased; may require milk of magnesia or alternate stimulant. Much more interactive/appropriate responses today. Will discuss with case management tomorrow, may benefit from repeat psychiatric assessment of competency. 02/24/18 Hgb 7.4. Stool for occult blood is pending. B12 also pending. Continue iron. ASA and Naproxen are on hold. Constipation - last BM 02/21 per RN. Will give Dulcolax today if no results. Good oral intake. VSS; hemodynamically stable. 02/25/18 Hgb 7.3. Stool for occult blood is pending (had BM last night but Hemoccult was not sent). B12 low normal at 272 - methylmalonic acid level ordered. Continues on Plavix. VSS; hemodynamically stable. Largely asymptomatic in regards to persistent anemia.
[2018-02-25] MEDS ORDERED: FUROSEMIDE 20 MG/2 ML INJECTION IVP ONE (09:15)
[2018-02-25] MEDS: CYANOCOBALAMIN (B-12) 500mcg TABLET PO SCH (10:31)
[2018-02-25] MEDS: SUCRALFATE 1 GM TABLET PO SCH ×2 (19:48→21:44)
[2018-02-25] MEDS: RANITIDINE 300 MG TABLET PO SCH ×2 (19:48→21:43)
[2018-02-25] MEDS: TAMSULOSIN 0.4 MG CAPSULE PO SCH ×2 (19:48→21:44)
[2018-02-25] MEDS: QUETIAPINE 50 MG TABLET PO SCH ×2 (19:48→21:43)
[2018-02-26] MEDS: NOZIN NASAL SWAB NAS SCH ×3 (06:05→21:24)
--- NOTE | 2018-02-26 08:07 | Orthopedic Progress Note ---
Date: Date: 02/26/18 Time: 804 Subjective/Severity of Illness: Mr Palafox knew me immediately. He was oriented x 3. Has incisional pain in the hip. Mobility has been slow. No other complaints. Orthopedic Exam Vital signs: Temperature 95.9 F L 02/05/18 15:57 Pulse Rate 64 02/05/18 15:57 Respiratory Rate 18 02/05/18 15:57 Blood Pressure 149/69 H 02/05/18 15:57 Pulse Oximetry 97 02/05/18 15:57 Vital Signs Temp Pulse Resp BP Pulse Ox 02/16/18 07:34 97.2 F 61 16 165/73 H 96 02/16/18 04:00 97.4 F 59 L 16 164/72 H 92 02/16/18 00:00 97.2 F 65 16 140/71 H 94 02/15/18 20:00 96.7 F L 66 20 106/56 93 02/15/18 16:36 96.6 F L 65 16 144/67 H 95 02/15/18 12:00 96.5 F L 61 16 159/71 H 94 Intake and Output 02/15/18 02/16/18 02/16/18 22:59 06:59 14:59 Intake Total 240 / 240 Output Total 200 / 200 350 / 350 Balance -200 / -200 -350 / -350 240 / 240 Intake: Oral 240 / 240 Output: Urine 200 / 200 350 / 350 Other: Urine Appearance Clear Clear Urine Color Yellow Yellow Stool Color Brown Stool Consistency Soft Size of Bowel Movement Smear # Voids 1 Weight 229 lb 11.547 oz Patient Weight 02/17/18 06:59 Weight 229 lb 11.547 oz - Constitutional General Appearance: Present: alert, orientated x3, no acute distress - Respiratory Exam Present: non-labored - Cardiovascular Exam Present: pedal pulses intact - Extremities Exam Present: no edema, pulses intact - Dressing Dressing: no drainage - Hip Exam right Hip Exam: Present: alignment normal (He has a tendency to internally rotate the leg but this is unchanged since surgery.) - Integumentary Exam Present: pink, warm, dry - Neurological Exam Present: no deficits - Psychiatric Exam Present: alert - Labs Result Diagrams: 02/26/18 03:58 02/25/18 04:11 Abnormal lab results 02/23/18 02/26/18 Range/Units 03:57 03:58 Hgb 7.5 L (13.5-17.5) GM/DL Hct 23.8 L (41-53) % Haptoglobin 296 H (36-195) mg/dL H & H 02/14/18 02/14/18 02/14/18 Range/Units 04:09 13:13 17:37 Hgb 8.7 L 9.8 L D 10.6 L (13.5-17.5) GM/DL Hct 27.9 L 31.5 L D (41-53) % 02/14/18 02/16/18 02/18/18 Range/Units 21:43 04:34 03:56 Hgb 10.9 L 10.7 L 10.8 L (13.5-17.5) GM/DL Hct 33.3 L 33.4 L (41-53) % 02/18/18 02/19/18 02/20/18 Range/Units 21:15 04:47 04:18 Hgb 9.3 L D 8.5 L 7.0 L D (13.5-17.5) GM/DL Hct 28.4 L D 26.5 L 21.9 L D (41-53) % 02/20/18 02/21/18 02/22/18 Range/Units 12:49 04:31 04:09 Hgb 7.9 L D 7.4 L 7.2 L (13.5-17.5) GM/DL Hct 23.2 L 22.7 L (41-53) % 02/23/18 02/24/18 02/25/18 Range/Units 03:57 04:12 04:11 Hgb 7.6 L 7.4 L 7.3 L (13.5-17.5) GM/DL Hct 23.6 L 23.0 L 23.2 L (41-53) % 02/26/18 Range/Units 03:58 Hgb 7.5 L (13.5-17.5) GM/DL Hct 23.8 L (41-53) % Orthopedic Assessment and Plan (1) Hip dislocation, right Status: Acute Qualifiers: Encounter type: initial encounter Qualified Code(s): S73.004A - Unspecified dislocation of right hip, initial encounter Problem Details: Recurrent, closed reduction in OR 02/04/18, 02/06/18, 02/12/18--> VAIBHAV 02/18/18 Assessment and Plan: Mr Foley was taken to the OR on 02/04/18, 02/06/18 & 02/12/18 for closed reduction of the right hip under anesthesia. He underwent revision of the right hip on 02/18/18. Continue hip precautions. Awaiting placement instructions. 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 Gaming Current anti-coagulation protocol- Plavix 75mg daily. ASA 81mg on hold due to continued anemia. SCD's for added protection Dr. James managing medically - hospitalist covering at this time. PT/OT services to improve independent function. Discharge Planning per Case Management- still waiting guardianship. - Additional Diagnoses Atrial Fibrillation: rate controlled Diabetes: resume oral medications, other (Has been under good control.) CAD: no active chest pain Anemia: no intervention required Hospital Course Summary Disclaimer: The visit summary below is not to be considered part of the above Progress Note. 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 Psychiatric evaluation suggested that the patient is not competent to make his own medication decisions. Case management is working on obtaining a guardian for the patient for consent to do a hip revision. Patient remains at high risk for recurrent dislocation, especially if transferred to penitentiary as [facility] [place] is well educated on precautions. Continue with current cares. Continue wedge pillow and straight leg immobilizer to minimize risk. Encourage participation in therapies to work with him on precautions and ambulation. Continue with bowel motivation. Recheck labs in AM to monitor blood counts, electrolytes and renal function. 02/16/18 [place] - Covering for Dr Lewis Clinically doing well. Forgetful about hip precautions. Plavix on hold for upcoming surgical procedure. Will start SCD for DVT prevention. Blood pressure and blood sugars stable - continue with current treatment. Encourage participation in therapies to work with him on precautions and ambulation. Patient remains at high risk for recurrent dislocation, especially if transferred to penitentiary as [facility] nursing staff is well educated on precautions. Anticipate Dr Lewis's return tomorrow. 02/19/18 [place] - Covering for Dr Lewis Will decrease IVF to 50cc/hr - oral drive with decrease. Encourage nursing to give Dulcolax to help with bowel function. Urine output slow-will place Herman, start bladder retraining, and initiate Flomax. Nursing not able to place Herman as pt very resistant to that intervention. Will hold on Herman, but continue Flomax. Continue with post op pain control and therapy. Blood sugars and pressure stable with current regimen. Lab ordered for tomorrow. 02/20/18 [place] - covering for Dr Lewis Hgb down to 7.0; will type and cross for 1 unit PRBC. With weight trending up give Lasix post-transfusion. DC IVF. Oral intake starting to improve today. Start tracking I/O - if UO does not improve may need to restart IVF. Renal function is stable. Constipation - BM on 02/1802/21/[address] Lewis Hgb 7.4, s/p 1 unit PRBC transfusion yesterday (and 2 units on 02/14). Dressing is reportedly c/d/i without drainage. Check stool for occult blood. Iron level was low at 34 on on 02/11. Platelets also showing downward trend: Hold naproxen & ASA. He is hemodynamically stable. Weight continues to trend up; he is up 6 kg from date of admission. Anemia could be partly dilutional in nature. Unable to calculate I/O d/t urinary incontinence. He is maintaining saturations on room air. CXR yesterday was negative. Electrolytes/renal function stable. 02/22/18 Hgb 7.2, s/p 3 unit PRBC during hospital course and has been treated with IV iron. Oral iron initiated. Hemoccult pending. Anticipate probable need for additional blood tomorrow, type and screen in a.m. Iron level was low at 34 on on 02/11. Hold naproxen & ASA. May be hemolyzing blood previously transfused, bilirubin normal yesterday-Check haptoglobin/LDH with labs tomorrow. Weight down 3 kg from yesterday but remains positive through the hospitalization and hemoglobin down slightly despite negative fluid balance yesterday. Patient describe dysuria yesterday and urinary frequency which he indicated has been present for about 6 months, UA negative. Urine volumes improving since Flomax initiated. Constipation resolved. Limited activity with physical therapy; guardianship pending to permit placement. 02/23/18 Hgb 7.6-slightly improved today, s/p 3 unit PRBC during hospital course and (2 units preceded VAIBHAV) and has been treated with IV iron. Oral iron initiated. Hemoccult pending. Continue iron therapy; no clear evidence of hemolysis thus far. Continue to monitor hemoglobin daily until above 8. Last bowel movement at least 4-5 days ago-MiraLAX/Senokot doses increased; may require milk of magnesia or alternate stimulant. Much more interactive/appropriate responses today. Will discuss with case management tomorrow, may benefit from repeat psychiatric assessment of competency. 02/24/18 Hgb 7.4. Stool for occult blood is pending. B12 also pending. Continue iron. ASA and Naproxen are on hold. Constipation - last BM 02/21 per RN. Will give Dulcolax today if no results. Good oral intake. VSS; hemodynamically stable. 02/25/18 Hgb 7.3. Stool for occult blood is pending (had BM last night but Hemoccult was not sent). B12 low normal at 272 - methylmalonic acid level ordered. Continues on Plavix. VSS; hemodynamically stable. Largely asymptomatic in regards to persistent anemia.
[2018-02-26] MEDS: POLYETHYL GLYCOL 3350 17gm PACKET PO SCH ×2 (09:22→20:42)
[2018-02-26] MEDS: CYANOCOBALAMIN (B-12) 500mcg TABLET PO SCH (09:23)
[2018-02-26] MEDS: SENNA + DOCUSATE TABLET PO SCH ×2 (09:23→20:42)
[2018-02-26] MEDS: ACETAMINOPHEN 325 MG TABLET PO SCH ×4 (09:24→21:25)
[2018-02-26] MEDS: AMLODIPINE 5 MG TABLET PO SCH (09:24)
[2018-02-26] MEDS: CARVEDILOL 6.25 MG TABLET PO SCH ×2 (09:24→17:12)
[2018-02-26] MEDS: FERROUS GLUCONATE 324 MG TABLET PO SCH (09:24)
[2018-02-26] MEDS: CLOPIDOGREL 75 MG TABLET PO SCH (09:24)
[2018-02-26] MEDS: ESCITALOPRAM 20 MG TABLET PO SCH (09:24)
[2018-02-26] MEDS: SALINE FLUSH 10ml SYRINGE IV PRN (09:25)
[2018-02-26] MEDS ORDERED: NS 1,000 ML IV ONE (10:48)
--- NOTE | 2018-02-26 16:07 | Progress Note ---
- Date 02/26/18 Subjective: F/U: Anemia, Diabetes, Hypertension, Hyperlipidemia Covering for Dr Tavarez Doing okay today. Reports pain controlled. Working with therapy. Eating well. Bowels feel like they are moving (last charted stool 02/26). Not having ab pain or bloating. No nausea. Breathing well. No chest pain or pressure. Looks much more alert than my last visit on 02/20. Objective Vital signs: Temperature 96.5 F L 02/26/18 15:28 Pulse Rate 61 02/26/18 15:28 Respiratory Rate 14 02/26/18 15:28 Blood Pressure 142/66 H 02/26/18 15:28 Pulse Oximetry 95 02/26/18 15:28 Height/Weight/BMI: Weight 103.8 kg - Constitutional Present: average body habitus, cooperative - Routine HEENT Exam Head: Present: normocephalic, atraumatic Eye: Present: EOMI, PERRL ENT: Present: mucous membranes moist - Routine Respiratory Exam Present: decreased breath sounds. Absent: rales, respiratory distress, rhonchi , wheezes, crackles - Routine Cardiovascular Exam Present: RRR, no murmur - Routine Abdominal Exam Present: soft, normoactive bowel sounds, non distended, non tender. Absent: guarding - Routine Extremities Exam Present: no edema, pulses intact. Absent: cyanosis, clubbing - Routine Musculoskeletal Exam Musculoskeletal: Present: no clubbing or cyanosis - Routine Skin Exam Present: dry, warm - Routine Neurological Exam Present: alert, CN II-XII intact, vision grossly intact, hearing grossly intact , normal speech. Absent: altered mental status - Routine Psychiatric Exam Present: normal affect, cooperative. 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 Lewis Hemoglobin largely stable at 7.5 this am. Pain controlled. Tolerating therapy. Blood pressure and blood sugars stable - continue treatments. Continue with supportive care, support, and therapy. Anticipate Dr Lewis's return tomorrow. Resuscitation Status: Full Code - Time spent with patient Time with patient PN: 25 minutes - Physician Narrative Physician: Chalino Puckett MD Narrative: Date: 02/26/18 Time: 1604 Hospital Course Summary Disclaimer: The visit summary below is not to be considered part of the above Progress Note. 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 Psychiatric evaluation suggested that the patient is not competent to make his own medication decisions. Case management is working on obtaining a guardian for the patient for consent to do a hip revision. Patient remains at high risk for recurrent dislocation, especially if transferred to half-way as [facility] nursing staff is well educated on precautions. Continue with current cares. Continue wedge pillow and straight leg immobilizer to minimize risk. Encourage participation in therapies to work with him on precautions and ambulation. Continue with bowel motivation. Recheck labs in AM to monitor blood counts, electrolytes and renal function. 02/16/18 [place] - Covering for Dr Lewis Clinically doing well. Forgetful about hip precautions. Plavix on hold for upcoming surgical procedure. Will start SCD for DVT prevention. Blood pressure and blood sugars stable - continue with current treatment. Encourage participation in therapies to work with him on precautions and ambulation. Patient remains at high risk for recurrent dislocation, especially if transferred to half-way as [facility] nursing staff is well educated on precautions. Anticipate Dr Lewis's return tomorrow. 02/19/18 [place] - Covering for Dr Lewis Will decrease IVF to 50cc/hr - oral drive with decrease. Encourage nursing to give Dulcolax to help with bowel function. Urine output slow-will place Herman, start bladder retraining, and initiate Flomax. Nursing not able to place Herman as pt very resistant to that intervention. Will hold on Herman, but continue Flomax. Continue with post op pain control and therapy. Blood sugars and pressure stable with current regimen. Lab ordered for tomorrow. 02/20/18 [place] - covering for Dr Lewis Hgb down to 7.0; will type and cross for 1 unit PRBC. With weight trending up give Lasix post-transfusion. DC IVF. Oral intake starting to improve today. Start tracking I/O - if UO does not improve may need to restart IVF. Renal function is stable. Constipation - BM on 02/1802/21/[address] Lewis Hgb 7.4, s/p 1 unit PRBC transfusion yesterday (and 2 units on 02/14). Dressing is reportedly c/d/i without drainage. Check stool for occult blood. Iron level was low at 34 on on 02/11. Platelets also showing downward trend: Hold naproxen & ASA. He is hemodynamically stable. Weight continues to trend up; he is up 6 kg from date of admission. Anemia could be partly dilutional in nature. Unable to calculate I/O d/t urinary incontinence. He is maintaining saturations on room air. CXR yesterday was negative. Electrolytes/renal function stable. 02/22/18 Hgb 7.2, s/p 3 unit PRBC during hospital course and has been treated with IV iron. Oral iron initiated. Hemoccult pending. Anticipate probable need for additional blood tomorrow, type and screen in a.m. Iron level was low at 34 on on 02/11. Hold naproxen & ASA. May be hemolyzing blood previously transfused, bilirubin normal yesterday-Check haptoglobin/LDH with labs tomorrow. Weight down 3 kg from yesterday but remains positive through the hospitalization and hemoglobin down slightly despite negative fluid balance yesterday. Patient describe dysuria yesterday and urinary frequency which he indicated has been present for about 6 months, UA negative. Urine volumes improving since Flomax initiated. Constipation resolved. Limited activity with physical therapy; guardianship pending to permit placement. 02/23/18 Hgb 7.6-slightly improved today, s/p 3 unit PRBC during hospital course and (2 units preceded VAIBHAV) and has been treated with IV iron. Oral iron initiated. Hemoccult pending. Continue iron therapy; no clear evidence of hemolysis thus far. Continue to monitor hemoglobin daily until above 8. Last bowel movement at least 4-5 days ago-MiraLAX/Senokot doses increased; may require milk of magnesia or alternate stimulant. Much more interactive/appropriate responses today. Will discuss with case management tomorrow, may benefit from repeat psychiatric assessment of competency. 02/24/18 Hgb 7.4. Stool for occult blood is pending. B12 also pending. Continue iron. ASA and Naproxen are on hold. Constipation - last BM 02/21 per RN. Will give Dulcolax today if no results. Good oral intake. VSS; hemodynamically stable. 02/25/18 Hgb 7.3. Stool for occult blood is pending (had BM last night but Hemoccult was not sent). B12 low normal at 272 - methylmalonic acid level ordered; initiate oral B-12 supplementation. Haptoglobin pending. Continue iron. ASA and Naproxen are on hold. Continues on Plavix. VSS; hemodynamically stable. Largely asymptomatic in regards to persistent anemia. Weight is up 2 kg over the past 48 hours-Lasix to be given again today. 02/26/18 [place] - Covering for Dr. Lewis Hemoglobin largely stable at 7.5 this am. Pain controlled. Tolerating therapy. Blood pressure and blood sugars stable - continue treatments. Continue with supportive care, support, and therapy. Anticipate Dr Lewis's return tomorrow.
--- NOTE | 2018-02-26 16:39 | Wound Care Progress Note ---
Wound Center Progress Note: Pt seen for wound consultation r/t blister on R heel. Seen with Ugo PARRY. Pt resting in bed, no complaints of pain. Pt states he has had this blister on his R heel "for awhile." Pt recently had surgery for R hip closed reduction/ revision. R heel: unroofed blister. Wound bed: pink shiny, no active drainage. Periwound: blanchable erythema. L lateral heel: purple discoloration, blanchable, skin intact. R heel: skin removed, saline moistened promogran applied to wound bed to promote healing, mepilex applied to heel, and foam boot placed on R foot. L heel: foam boot placed. Change dressing to R heel q 3 days. Float heels.
--- NOTE | 2018-02-26 16:43 | Wound Care Progress Note ---
Wound Management - Patient Status Premedicated Prior to Dressing Change: No - Wound Right Heel Wound Type: Pressure Injury Wound Staging: Stage II Length: 3 Width: 5 Depth: 0.1 Wound Bed Appearance: [place], Shiny Mary Kay Wound Appearance: Blanched/Dull Tunneling: No Undermining: No Drainage Amount: None Drainage Odor: No Odor Dressing Status: Changed Primary Dressing: Promogran Secondary Dressing: Foam Dressing Dressing Change Date: 02/26/18 Dressing Change Time: 15:30 Dressing Change Patient Tolerance: Tolerated Well Left Lateral Heel Wound Type: Pressure Injury Wound Present on Admission?: Yes Length: 1 Width: 1 Wound Bed Appearance: [place] Mary Kay Wound Appearance: Blanched/Dull Tunneling: No Undermining: No Drainage Amount: None Drainage Odor: No Odor Dressing Status: Open to Air Dressing Change Patient Tolerance: Tolerated Well (Apply bilateral foam boot to heels, float heels.)
[2018-02-26] MEDS: TAMSULOSIN 0.4 MG CAPSULE PO SCH (21:25)
[2018-02-26] MEDS: QUETIAPINE 50 MG TABLET PO SCH (21:25)
[2018-02-26] MEDS: RANITIDINE 300 MG TABLET PO SCH (21:25)
[2018-02-26] MEDS: SUCRALFATE 1 GM TABLET PO SCH (21:27)
[2018-02-27] MEDS: NOZIN NASAL SWAB NAS SCH ×3 (05:18→22:27)
[2018-02-27] MEDS: ACETAMINOPHEN 325 MG TABLET PO SCH ×4 (08:04→20:07)
[2018-02-27] MEDS: POLYETHYL GLYCOL 3350 17gm PACKET PO SCH ×2 (08:04→20:12)
[2018-02-27] MEDS: CLOPIDOGREL 75 MG TABLET PO SCH (08:05)
[2018-02-27] MEDS: AMLODIPINE 5 MG TABLET PO SCH (08:05)
[2018-02-27] MEDS: SENNA + DOCUSATE TABLET PO SCH ×2 (08:05→20:08)
[2018-02-27] MEDS: ESCITALOPRAM 20 MG TABLET PO SCH (08:06)
[2018-02-27] MEDS: FERROUS GLUCONATE 324 MG TABLET PO SCH (08:06)
[2018-02-27] MEDS: CARVEDILOL 6.25 MG TABLET PO SCH ×2 (08:06→17:49)
[2018-02-27] MEDS: CYANOCOBALAMIN (B-12) 500mcg TABLET PO SCH (08:06)
--- NOTE | 2018-02-27 11:11 | Orthopedic Progress Note ---
Date: Date: 02/27/18 Time: 1108 Subjective/Severity of Illness: Mr. Palafox is sitting up in the chair this morning on rounds. He is alert and oriented today. States he has been ambulating with walker. Reports intermittent right incision hip pain that is well controlled with medications. Denies CP, SOA, nausea. Orthopedic Exam Vital signs: Temperature 95.9 F L 02/05/18 15:57 Pulse Rate 64 02/05/18 15:57 Respiratory Rate 18 02/05/18 15:57 Blood Pressure 149/69 H 02/05/18 15:57 Pulse Oximetry 97 02/05/18 15:57 Vital Signs Temp Pulse Resp BP Pulse Ox 02/16/18 07:34 97.2 F 61 16 165/73 H 96 02/16/18 04:00 97.4 F 59 L 16 164/72 H 92 02/16/18 00:00 97.2 F 65 16 140/71 H 94 02/15/18 20:00 96.7 F L 66 20 106/56 93 02/15/18 16:36 96.6 F L 65 16 144/67 H 95 02/15/18 12:00 96.5 F L 61 16 159/71 H 94 Intake and Output 02/15/18 02/16/18 02/16/18 22:59 06:59 14:59 Intake Total 240 / 240 Output Total 200 / 200 350 / 350 Balance -200 / -200 -350 / -350 240 / 240 Intake: Oral 240 / 240 Output: Urine 200 / 200 350 / 350 Other: Urine Appearance Clear Clear Urine Color Yellow Yellow Stool Color Brown Stool Consistency Soft Size of Bowel Movement Smear # Voids 1 Weight 229 lb 11.547 oz Patient Weight 02/17/18 06:59 Weight 229 lb 11.547 oz - Constitutional General Appearance: Present: alert, orientated x3, no acute distress, well nourished - Respiratory Exam Present: non-labored - Cardiovascular Exam Present: pedal pulses intact - Abdominal Exam Present: soft - Extremities Exam Present: no edema, pulses intact. Absent: cyanosis, clubbing, calf tenderness - Dressing Dressing: dry, intact, no drainage Comments: mepilex right hip - Hip Exam right Hip Exam: Present: alignment normal (He has a tendency to internally rotate the leg but this is unchanged since surgery.) - Integumentary Exam Present: pink, warm, dry - Neurological Exam Present: intact to light touch, no deficits - Psychiatric Exam Present: alert, oriented, normal affect - Labs Result Diagrams: 02/26/18 03:58 02/25/18 04:11 H & H 02/14/18 02/14/18 02/14/18 Range/Units 04:09 13:13 17:37 Hgb 8.7 L 9.8 L D 10.6 L (13.5-17.5) GM/DL Hct 27.9 L 31.5 L D (41-53) % 02/14/18 02/16/18 02/18/18 Range/Units 21:43 04:34 03:56 Hgb 10.9 L 10.7 L 10.8 L (13.5-17.5) GM/DL Hct 33.3 L 33.4 L (41-53) % 02/18/18 02/19/18 02/20/18 Range/Units 21:15 04:47 04:18 Hgb 9.3 L D 8.5 L 7.0 L D (13.5-17.5) GM/DL Hct 28.4 L D 26.5 L 21.9 L D (41-53) % 02/20/18 02/21/18 02/22/18 Range/Units 12:49 04:31 04:09 Hgb 7.9 L D 7.4 L 7.2 L (13.5-17.5) GM/DL Hct 23.2 L 22.7 L (41-53) % 02/23/18 02/24/18 02/25/18 Range/Units 03:57 04:12 04:11 Hgb 7.6 L 7.4 L 7.3 L (13.5-17.5) GM/DL Hct 23.6 L 23.0 L 23.2 L (41-53) % 02/26/18 Range/Units 03:58 Hgb 7.5 L (13.5-17.5) GM/DL Hct 23.8 L (41-53) % Orthopedic Assessment and Plan (1) Hip dislocation, right Status: Acute Qualifiers: Encounter type: initial encounter Qualified Code(s): S73.004A - Unspecified dislocation of right hip, initial encounter Problem Details: Recurrent, closed reduction in OR 02/04/18, 02/06/18, 02/12/18--> VAIBHAV 02/18/18 Assessment and Plan: Mr Foley was taken to the OR on 02/04/18, 02/06/18 & 02/12/18 for closed reduction of the right hip under anesthesia. 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 Continue hip precautions. Awaiting placement instructions. 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 Gaming Current anti-coagulation protocol- Plavix 75mg daily. ASA 81mg on hold due to continued anemia. SCD's for added protection Dr. James managing medically - hospitalist covering at this time. PT/OT services to improve independent function. Discharge Planning per Case Management- still waiting guardianship. - Additional Diagnoses Atrial Fibrillation: rate controlled Diabetes: resume oral medications, other (Has been under good control.) CAD: no active chest pain Anemia: no intervention required Hospital Course Summary Disclaimer: The visit summary below is not to be considered part of the above Progress Note. 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 Psychiatric evaluation suggested that the patient is not competent to make his own medication decisions. Case management is working on obtaining a guardian for the patient for consent to do a hip revision. Patient remains at high risk for recurrent dislocation, especially if transferred [place] [facility] [place] is well educated on precautions. Continue with current cares. Continue wedge pillow and straight leg immobilizer to minimize risk. Encourage participation in therapies to work with him on precautions and ambulation. Continue with bowel motivation. Recheck labs in AM to monitor blood counts, electrolytes and renal function. 02/16/18 [place] - Covering for Dr Lewis Clinically doing well. Forgetful about hip precautions. Plavix on hold for upcoming surgical procedure. Will start SCD for DVT prevention. Blood pressure and blood sugars stable - continue with current treatment. Encourage participation in therapies to work with him on precautions and ambulation. Patient remains at high risk for recurrent dislocation, especially if transferred to [facility] [place] staff is well educated on precautions. Anticipate Dr Lewis's return tomorrow. 02/19/18 [place] - Covering for Dr Lewis Will decrease IVF to 50cc/hr - oral drive with decrease. Encourage nursing to give Dulcolax to help with bowel function. Urine output slow-will place Herman, start bladder retraining, and initiate Flomax. Nursing not able to place Herman as pt very resistant to that intervention. Will hold on Herman, but continue Flomax. Continue with post op pain control and therapy. Blood sugars and pressure stable with current regimen. Lab ordered for tomorrow. 02/20/18 [place] - covering for Dr Lewis Hgb down to 7.0; will type and cross for 1 unit PRBC. With weight trending up give Lasix post-transfusion. DC IVF. Oral intake starting to improve today. Start tracking I/O - if UO does not improve may need to restart IVF. Renal function is stable. Constipation - BM on 02/1802/21/[address] Lewis Hgb 7.4, s/p 1 unit PRBC transfusion yesterday (and 2 units on 02/14). Dressing is reportedly c/d/i without drainage. Check stool for occult blood. Iron level was low at 34 on on 02/11. Platelets also showing downward trend: Hold naproxen & ASA. He is hemodynamically stable. Weight continues to trend up; he is up 6 kg from date of admission. Anemia could be partly dilutional in nature. Unable to calculate I/O d/t urinary incontinence. He is maintaining saturations on room air. CXR yesterday was negative. Electrolytes/renal function stable. 02/22/18 Hgb 7.2, s/p 3 unit PRBC during hospital course and has been treated with IV iron. Oral iron initiated. Hemoccult pending. Anticipate probable need for additional blood tomorrow, type and screen in a.m. Iron level was low at 34 on on 02/11. Hold naproxen & ASA. May be hemolyzing blood previously transfused, bilirubin normal yesterday-Check haptoglobin/LDH with labs tomorrow. Weight down 3 kg from yesterday but remains positive through the hospitalization and hemoglobin down slightly despite negative fluid balance yesterday. Patient describe dysuria yesterday and urinary frequency which he indicated has been present for about 6 months, UA negative. Urine volumes improving since Flomax initiated. Constipation resolved. Limited activity with physical therapy; guardianship pending to permit placement. 02/23/18 Hgb 7.6-slightly improved today, s/p 3 unit PRBC during hospital course and (2 units preceded VAIBHAV) and has been treated with IV iron. Oral iron initiated. Hemoccult pending. Continue iron therapy; no clear evidence of hemolysis thus far. Continue to monitor hemoglobin daily until above 8. Last bowel movement at least 4-5 days ago-MiraLAX/Senokot doses increased; may require milk of magnesia or alternate stimulant. Much more interactive/appropriate responses today. Will discuss with case management tomorrow, may benefit from repeat psychiatric assessment of competency. 02/24/18 Hgb 7.4. Stool for occult blood is pending. B12 also pending. Continue iron. ASA and Naproxen are on hold. Constipation - last BM 02/21 per RN. Will give Dulcolax today if no results. Good oral intake. VSS; hemodynamically stable. 02/25/18 Hgb 7.3. Stool for occult blood is pending (had BM last night but Hemoccult was not sent). B12 low normal at 272 - methylmalonic acid level ordered; initiate oral B-12 supplementation. Haptoglobin pending. Continue iron. ASA and Naproxen are on hold. Continues on Plavix. VSS; hemodynamically stable. Largely asymptomatic in regards to persistent anemia. Weight is up 2 kg over the past 48 hours-Lasix to be given again today. 02/26/18 [place] - Covering for Dr. Lewis Hemoglobin largely stable at 7.5 this am. Pain controlled. Tolerating therapy. Blood pressure and blood sugars stable - continue treatments. Continue with supportive care, support, and therapy. Anticipate Dr Lewis's return tomorrow.
[2018-02-27] MEDS: SALINE FLUSH 10ml SYRINGE IV PRN (13:39)
[2018-02-27] MEDS: QUETIAPINE 50 MG TABLET PO SCH (20:07)
[2018-02-27] MEDS: SUCRALFATE 1 GM TABLET PO SCH (20:07)
[2018-02-27] MEDS: TAMSULOSIN 0.4 MG CAPSULE PO SCH (20:07)
[2018-02-27] MEDS: RANITIDINE 300 MG TABLET PO SCH (20:08)
[2018-02-28] MEDS: NOZIN NASAL SWAB NAS SCH ×3 (05:36→21:00)
[2018-02-28] MEDS: POLYETHYL GLYCOL 3350 17gm PACKET PO SCH ×2 (08:53→20:58)
[2018-02-28] MEDS: CLOPIDOGREL 75 MG TABLET PO SCH (08:53)
[2018-02-28] MEDS: FERROUS GLUCONATE 324 MG TABLET PO SCH (08:53)
[2018-02-28] MEDS: AMLODIPINE 5 MG TABLET PO SCH (08:53)
[2018-02-28] MEDS: CARVEDILOL 6.25 MG TABLET PO SCH ×2 (08:53→17:53)
[2018-02-28] MEDS: CYANOCOBALAMIN (B-12) 500mcg TABLET PO SCH (08:53)
[2018-02-28] MEDS: ESCITALOPRAM 20 MG TABLET PO SCH (08:53)
[2018-02-28] MEDS: SENNA + DOCUSATE TABLET PO SCH ×2 (08:53→20:58)
[2018-02-28] MEDS: ACETAMINOPHEN 325 MG TABLET PO SCH ×4 (08:53→20:57)
[2018-02-28] MEDS: RANITIDINE 300 MG TABLET PO SCH (20:57)
[2018-02-28] MEDS: SUCRALFATE 1 GM TABLET PO SCH (20:57)
[2018-02-28] MEDS: QUETIAPINE 50 MG TABLET PO SCH (20:58)
[2018-02-28] MEDS: TAMSULOSIN 0.4 MG CAPSULE PO SCH (20:58)
[2018-02-28] MEDS: SALINE FLUSH 10ml SYRINGE IV PRN (21:05)
[2018-03-01] MEDS: NOZIN NASAL SWAB NAS SCH ×3 (07:27→22:12)
--- NOTE | 2018-03-01 09:37 | Orthopedic Progress Note ---
Date: Date: 03/01/18 Time: 933 Subjective/Severity of Illness: Mr. Palafox is sitting up in the chair this morning when rounding. He reports pain along surgical incision, which is managed well with pain medications. He is alert and oriented x 2 this morning. He reports his grandson informed him his and is on Saturday. He would like to attend. Will have to confirm with family members, CM had confirmed spouse was hospitalized in [place] earlier this week. Still awaiting temporary guardianship paperwork. Denies any CP, SOA, nausea. Orthopedic Exam Vital signs: Temperature 95.9 F L 02/05/18 15:57 Pulse Rate 64 02/05/18 15:57 Respiratory Rate 18 02/05/18 15:57 Blood Pressure 149/69 H 02/05/18 15:57 Pulse Oximetry 97 02/05/18 15:57 Vital Signs Temp Pulse Resp BP Pulse Ox 02/16/18 07:34 97.2 F 61 16 165/73 H 96 02/16/18 04:00 97.4 F 59 L 16 164/72 H 92 02/16/18 00:00 97.2 F 65 16 140/71 H 94 02/15/18 20:00 96.7 F L 66 20 106/56 93 02/15/18 16:36 96.6 F L 65 16 144/67 H 95 02/15/18 12:00 96.5 F L 61 16 159/71 H 94 Intake and Output 02/15/18 02/16/18 02/16/18 22:59 06:59 14:59 Intake Total 240 / 240 Output Total 200 / 200 350 / 350 Balance -200 / -200 -350 / -350 240 / 240 Intake: Oral 240 / 240 Output: Urine 200 / 200 350 / 350 Other: Urine Appearance Clear Clear Urine Color Yellow Yellow Stool Color Brown Stool Consistency Soft Size of Bowel Movement Smear # Voids 1 Weight 229 lb 11.547 oz Patient Weight 02/17/18 06:59 Weight 229 lb 11.547 oz - Constitutional General Appearance: Present: alert, orientated x2, no acute distress, well nourished - Respiratory Exam Present: CTA bilaterally, non-labored - Cardiovascular Exam Present: Regular Rate/Rhythm, pedal pulses intact - Abdominal Exam Present: soft - Extremities Exam Present: pulses intact. Absent: calf tenderness - Dressing Dressing: dry, intact, no drainage Comments: mepilex right hip - Hip Exam right Hip Exam: Present: alignment normal (He has a tendency to internally rotate the leg but this is unchanged since surgery.) - Integumentary Exam Present: pink, warm, dry - Neurological Exam Present: intact to light touch, no deficits - Psychiatric Exam Present: alert, oriented, normal affect - Labs Result Diagrams: 02/26/18 03:58 02/25/18 04:11 Abnormal lab results 03/01/18 Range/Units 04:26 Absolute Retic 0.1378 H (0.0300-0.0900) T/MM3 Percent Retic 4.8 H (0.6-1.7) % Retic Hgb Content CHr 27.5 L (30.8-36.6) PG H & H 02/14/18 02/14/18 02/14/18 Range/Units 04:09 13:13 17:37 Hgb 8.7 L 9.8 L D 10.6 L (13.5-17.5) GM/DL Hct 27.9 L 31.5 L D (41-53) % 02/14/18 02/16/18 02/18/18 Range/Units 21:43 04:34 03:56 Hgb 10.9 L 10.7 L 10.8 L (13.5-17.5) GM/DL Hct 33.3 L 33.4 L (41-53) % 02/18/18 02/19/18 02/20/18 Range/Units 21:15 04:47 04:18 Hgb 9.3 L D 8.5 L 7.0 L D (13.5-17.5) GM/DL Hct 28.4 L D 26.5 L 21.9 L D (41-53) % 02/20/18 02/21/18 02/22/18 Range/Units 12:49 04:31 04:09 Hgb 7.9 L D 7.4 L 7.2 L (13.5-17.5) GM/DL Hct 23.2 L 22.7 L (41-53) % 02/23/18 02/24/18 02/25/18 Range/Units 03:57 04:12 04:11 Hgb 7.6 L 7.4 L 7.3 L (13.5-17.5) GM/DL Hct 23.6 L 23.0 L 23.2 L (41-53) % 02/26/18 Range/Units 03:58 Hgb 7.5 L (13.5-17.5) GM/DL Hct 23.8 L (41-53) % Orthopedic Assessment and Plan (1) Hip dislocation, right Status: Acute Qualifiers: Encounter type: initial encounter Qualified Code(s): S73.004A - Unspecified dislocation of right hip, initial encounter Problem Details: Recurrent, closed reduction in OR 02/04/18, 02/06/18, 02/12/18--> VAIBHAV 02/18/18 Assessment and Plan: Mr Foley was taken to the OR on 02/04/18, 02/06/18 & 02/12/18 for closed reduction of the right hip under anesthesia. 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 Continue hip precautions. Awaiting placement instructions. 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 Gaming Continues to do well from orthopedic standpoint, still awaiting temporary guardianship for placement. Current anti-coagulation protocol- Plavix 75mg daily. ASA 81mg on hold due to continued anemia- per hospitalist. SCD's for added protection Dr. James managing medically - hospitalist covering at this time. PT/OT services to improve independent function. - Additional Diagnoses Atrial Fibrillation: rate controlled Diabetes: resume oral medications, other (Has been under good control.) CAD: no active chest pain Anemia: no intervention required Hospital Course Summary Disclaimer: The visit summary below is not to be considered part of the above Progress Note. 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 Psychiatric evaluation suggested that the patient is not competent to make his own medication decisions. Case management is working on obtaining a guardian for the patient for consent to do a hip revision. Patient remains at high risk for recurrent dislocation, especially if transferred [place] [place] [facility] [place] is well educated on precautions. Continue with current cares. Continue wedge pillow and straight leg immobilizer to minimize risk. Encourage participation in therapies to work with him on precautions and ambulation. Continue with bowel motivation. Recheck labs in AM to monitor blood counts, electrolytes and renal function. 02/16/18 [place] - Covering for Dr Lewis Clinically doing well. Forgetful about hip precautions. Plavix on hold for upcoming surgical procedure. Will start SCD for DVT prevention. Blood pressure and blood sugars stable - continue with current treatment. Encourage participation in therapies to work with him on precautions and ambulation. Patient remains at high risk for recurrent dislocation, especially if transferred to custodial as [facility] [place] is well educated on precautions. Anticipate Dr Lewis's return tomorrow. 02/19/18 [place] - Covering for Dr Lewis Will decrease IVF to 50cc/hr - oral drive with decrease. Encourage nursing to give Dulcolax to help with bowel function. Urine output slow-will place Herman, start bladder retraining, and initiate Flomax. Nursing not able to place Herman as pt very resistant to that intervention. Will hold on Herman, but continue Flomax. Continue with post op pain control and therapy. Blood sugars and pressure stable with current regimen. Lab ordered for tomorrow. 02/20/18 [place] - covering for Dr Lewis Hgb down to 7.0; will type and cross for 1 unit PRBC. With weight trending up give Lasix post-transfusion. DC IVF. Oral intake starting to improve today. Start tracking I/O - if UO does not improve may need to restart IVF. Renal function is stable. Constipation - BM on 02/1802/21/[address] Lewis Hgb 7.4, s/p 1 unit PRBC transfusion yesterday (and 2 units on 02/14). Dressing is reportedly c/d/i without drainage. Check stool for occult blood. Iron level was low at 34 on on 02/11. Platelets also showing downward trend: Hold naproxen & ASA. He is hemodynamically stable. Weight continues to trend up; he is up 6 kg from date of admission. Anemia could be partly dilutional in nature. Unable to calculate I/O d/t urinary incontinence. He is maintaining saturations on room air. CXR yesterday was negative. Electrolytes/renal function stable. 02/22/18 Hgb 7.2, s/p 3 unit PRBC during hospital course and has been treated with IV iron. Oral iron initiated. Hemoccult pending. Anticipate probable need for additional blood tomorrow, type and screen in a.m. Iron level was low at 34 on on 02/11. Hold naproxen & ASA. May be hemolyzing blood previously transfused, bilirubin normal yesterday-Check haptoglobin/LDH with labs tomorrow. Weight down 3 kg from yesterday but remains positive through the hospitalization and hemoglobin down slightly despite negative fluid balance yesterday. Patient describe dysuria yesterday and urinary frequency which he indicated has been present for about 6 months, UA negative. Urine volumes improving since Flomax initiated. Constipation resolved. Limited activity with physical therapy; guardianship pending to permit placement. 02/23/18 Hgb 7.6-slightly improved today, s/p 3 unit PRBC during hospital course and (2 units preceded VAIBHAV) and has been treated with IV iron. Oral iron initiated. Hemoccult pending. Continue iron therapy; no clear evidence of hemolysis thus far. Continue to monitor hemoglobin daily until above 8. Last bowel movement at least 4-5 days ago-MiraLAX/Senokot doses increased; may require milk of magnesia or alternate stimulant. Much more interactive/appropriate responses today. Will discuss with case management tomorrow, may benefit from repeat psychiatric assessment of competency. 02/24/18 Hgb 7.4. Stool for occult blood is pending. B12 also pending. Continue iron. ASA and Naproxen are on hold. Constipation - last BM 02/21 per RN. Will give Dulcolax today if no results. Good oral intake. VSS; hemodynamically stable. 02/25/18 Hgb 7.3. Stool for occult blood is pending (had BM last night but Hemoccult was not sent). B12 low normal at 272 - methylmalonic acid level ordered; initiate oral B-12 supplementation. Haptoglobin pending. Continue iron. ASA and Naproxen are on hold. Continues on Plavix. VSS; hemodynamically stable. Largely asymptomatic in regards to persistent anemia. Weight is up 2 kg over the past 48 hours-Lasix to be given again today. 02/26/18 [place] - Covering for Dr. Lewis Hemoglobin largely stable at 7.5 this am. Pain controlled. Tolerating therapy. Blood pressure and blood sugars stable - continue treatments. Continue with supportive care, support, and therapy. Anticipate Dr Lewis's return tomorrow.
[2018-03-01] MEDS: CYANOCOBALAMIN (B-12) 500mcg TABLET PO SCH (09:49)
[2018-03-01] MEDS: ESCITALOPRAM 20 MG TABLET PO SCH (09:50)
[2018-03-01] MEDS: SENNA + DOCUSATE TABLET PO SCH ×2 (09:50→20:46)
[2018-03-01] MEDS: ACETAMINOPHEN 325 MG TABLET PO SCH ×4 (09:51→20:45)
[2018-03-01] MEDS: CLOPIDOGREL 75 MG TABLET PO SCH (09:51)
[2018-03-01] MEDS: AMLODIPINE 5 MG TABLET PO SCH (09:51)
[2018-03-01] MEDS: FERROUS GLUCONATE 324 MG TABLET PO SCH (09:52)
[2018-03-01] MEDS: CARVEDILOL 6.25 MG TABLET PO SCH ×2 (09:52→17:20)
[2018-03-01] MEDS: POLYETHYL GLYCOL 3350 17gm PACKET PO SCH ×2 (10:03→20:39)
[2018-03-01] MEDS: SALINE FLUSH 10ml SYRINGE IV PRN (13:28)
--- NOTE | 2018-03-01 17:46 | Progress Note ---
- Date 03/01/18 Subjective: F/U: Anemia, Diabetes, Hypertension, Hyperlipidemia Covering for Dr Tavarez Very shaken from loss of his . Hard to sleep; reports crying himself to sleep every night since her passing. Emotionally rough. Medically, doing okay. Reports hip pain controlled-not hurting. Breathing well. No ab pain or nausea. Objective Vital signs: Temperature 97.7 F 03/01/18 13:28 Pulse Rate 62 03/01/18 17:19 Respiratory Rate 14 03/01/18 13:28 Blood Pressure 139/68 03/01/18 17:19 Pulse Oximetry 96 03/01/18 13:28 Height/Weight/BMI: Weight 100.3 kg - Constitutional Present: well nourished, well developed, average body habitus, cooperative - Routine HEENT Exam Head: Present: normocephalic, atraumatic Eye: Present: EOMI, PERRL ENT: Present: mucous membranes moist - Routine Respiratory Exam Present: decreased breath sounds. Absent: rales, respiratory distress, wheezes , crackles - Routine Cardiovascular Exam Present: RRR, no murmur - Routine Abdominal Exam Present: soft, normoactive bowel sounds, non distended, non tender - Routine Extremities Exam Present: no edema, pulses intact. Absent: cyanosis, clubbing - Routine Musculoskeletal Exam Musculoskeletal: Present: no clubbing or cyanosis - Routine Skin Exam Present: dry, warm - Routine Neurological Exam Present: alert, CN II-XII intact, moving all extremities, vision grossly intact , hearing grossly intact. 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 Lewis Medically doing well-BP, sugars, vitals stable. Emotional support for loss of spouse - very difficult transition for him. Continue with supportive care. Resuscitation Status: Full Code - Time spent with patient Time with patient PN: 15 minutes - Physician Narrative Physician: Chalino Puckett MD Narrative: Date: 03/01/18 Time: 2692 Hospital Course Summary Disclaimer: The visit summary below is not to be considered part of the above Progress Note. 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 Psychiatric evaluation suggested that the patient is not competent to make his own medication decisions. Case management is working on obtaining a guardian for the patient for consent to do a hip revision. Patient remains at high risk for recurrent dislocation, especially if transferred to [place] [facility] nursing staff is well educated on precautions. Continue with current cares. Continue wedge pillow and straight leg immobilizer to minimize risk. Encourage participation in therapies to work with him on precautions and ambulation. Continue with bowel motivation. Recheck labs in AM to monitor blood counts, electrolytes and renal function. 02/16/18 [place] - Covering for Dr Lewis Clinically doing well. Forgetful about hip precautions. Plavix on hold for upcoming surgical procedure. Will start SCD for DVT prevention. Blood pressure and blood sugars stable - continue with current treatment. Encourage participation in therapies to work with him on precautions and ambulation. Patient remains at high risk for recurrent dislocation, especially if transferred to [place] [facility] nursing staff is well educated on precautions. Anticipate Dr Lewis's return tomorrow. 02/19/18 [place] - Covering for Dr Lewis Will decrease IVF to 50cc/hr - oral drive with decrease. Encourage nursing to give Dulcolax to help with bowel function. Urine output slow-will place Herman, start bladder retraining, and initiate Flomax. Nursing not able to place Herman as pt very resistant to that intervention. Will hold on Herman, but continue Flomax. Continue with post op pain control and therapy. Blood sugars and pressure stable with current regimen. Lab ordered for tomorrow. 02/20/18 [place] - covering for Dr Lewis Hgb down to 7.0; will type and cross for 1 unit PRBC. With weight trending up give Lasix post-transfusion. DC IVF. Oral intake starting to improve today. Start tracking I/O - if UO does not improve may need to restart IVF. Renal function is stable. Constipation - BM on 02/1802/21/[address] Lewis Hgb 7.4, s/p 1 unit PRBC transfusion yesterday (and 2 units on 02/14). Dressing is reportedly c/d/i without drainage. Check stool for occult blood. Iron level was low at 34 on on 02/11. Platelets also showing downward trend: Hold naproxen & ASA. He is hemodynamically stable. Weight continues to trend up; he is up 6 kg from date of admission. Anemia could be partly dilutional in nature. Unable to calculate I/O d/t urinary incontinence. He is maintaining saturations on room air. CXR yesterday was negative. Electrolytes/renal function stable. 02/22/18 Hgb 7.2, s/p 3 unit PRBC during hospital course and has been treated with IV iron. Oral iron initiated. Hemoccult pending. Anticipate probable need for additional blood tomorrow, type and screen in a.m. Iron level was low at 34 on on 02/11. Hold naproxen & ASA. May be hemolyzing blood previously transfused, bilirubin normal yesterday-Check haptoglobin/LDH with labs tomorrow. Weight down 3 kg from yesterday but remains positive through the hospitalization and hemoglobin down slightly despite negative fluid balance yesterday. Patient describe dysuria yesterday and urinary frequency which he indicated has been present for about 6 months, UA negative. Urine volumes improving since Flomax initiated. Constipation resolved. Limited activity with physical therapy; guardianship pending to permit placement. 02/23/18 Hgb 7.6-slightly improved today, s/p 3 unit PRBC during hospital course and (2 units preceded VAIBHAV) and has been treated with IV iron. Oral iron initiated. Hemoccult pending. Continue iron therapy; no clear evidence of hemolysis thus far. Continue to monitor hemoglobin daily until above 8. Last bowel movement at least 4-5 days ago-MiraLAX/Senokot doses increased; may require milk of magnesia or alternate stimulant. Much more interactive/appropriate responses today. Will discuss with case management tomorrow, may benefit from repeat psychiatric assessment of competency. 02/24/18 Hgb 7.4. Stool for occult blood is pending. B12 also pending. Continue iron. ASA and Naproxen are on hold. Constipation - last BM 02/21 per RN. Will give Dulcolax today if no results. Good oral intake. VSS; hemodynamically stable. 02/25/18 Hgb 7.3. Stool for occult blood is pending (had BM last night but Hemoccult was not sent). B12 low normal at 272 - methylmalonic acid level ordered; initiate oral B-12 supplementation. Haptoglobin pending. Continue iron. ASA and Naproxen are on hold. Continues on Plavix. VSS; hemodynamically stable. Largely asymptomatic in regards to persistent anemia. Weight is up 2 kg over the past 48 hours-Lasix to be given again today. 02/26/18 [place] - Covering for Dr. Lewis Hemoglobin largely stable at 7.5 this am. Pain controlled. Tolerating therapy. Blood pressure and blood sugars stable - continue treatments. Continue with supportive care, support, and therapy. Anticipate Dr Lewis's return tomorrow. 03/01/18 [place] - Covering for Dr. Lewis Medically doing well-BP, sugars, vitals stable. Emotional support for loss of spouse - very difficult transition for him. Continue with supportive care.
[2018-03-01] MEDS: TAMSULOSIN 0.4 MG CAPSULE PO SCH (20:46)
[2018-03-01] MEDS: RANITIDINE 300 MG TABLET PO SCH (20:46)
[2018-03-01] MEDS: SUCRALFATE 1 GM TABLET PO SCH (20:46)
[2018-03-01] MEDS: QUETIAPINE 50 MG TABLET PO SCH (20:46)
[2018-03-02] MEDS: NOZIN NASAL SWAB NAS SCH ×2 (06:05→13:23)
[2018-03-02] MEDS: CARVEDILOL 6.25 MG TABLET PO SCH ×2 (08:03→17:12)
[2018-03-02] MEDS: FERROUS GLUCONATE 324 MG TABLET PO SCH (08:03)
[2018-03-02] MEDS: ACETAMINOPHEN 325 MG TABLET PO SCH ×4 (08:03→20:33)
[2018-03-02] MEDS: CLOPIDOGREL 75 MG TABLET PO SCH (08:04)
[2018-03-02] MEDS: CYANOCOBALAMIN (B-12) 500mcg TABLET PO SCH (08:04)
[2018-03-02] MEDS: AMLODIPINE 5 MG TABLET PO SCH (08:04)
[2018-03-02] MEDS: POLYETHYL GLYCOL 3350 17gm PACKET PO SCH ×2 (08:05→20:22)
[2018-03-02] MEDS: ESCITALOPRAM 20 MG TABLET PO SCH (08:05)
[2018-03-02] MEDS: SENNA + DOCUSATE TABLET PO SCH ×2 (08:05→20:23)
[2018-03-02] MEDS: SALINE FLUSH 10ml SYRINGE IV PRN (12:19)
--- NOTE | 2018-03-02 13:57 | Progress Note ---
- Date 03/02/18 Subjective: F/U: Anemia, Diabetes, Hypertension, Hyperlipidemia Covering for Dr Daysi Castillo is seen today while sitting up in his recliner, watching TV, having just finished all of his lunch. He reports that he is feeling "great" and denies any complaints or concerns. No chest pain, shortness of breath, abdominal pain, nausea, vomiting or diarrhea. He does become tearful after he mentioned that his passed, reporting that he has been crying himself to sleep each night. He denies any dizziness, lightheadedness or near syncope. No recent labs. Vital stable. Objective Vital signs: Temperature 96.5 F L 03/02/18 07:47 Pulse Rate 65 03/02/18 07:47 Respiratory Rate 18 03/02/18 07:47 Blood Pressure 132/57 03/02/18 07:47 Pulse Oximetry 97 03/02/18 07:47 Height/Weight/BMI: Weight 224 lb 13.944 oz Comments: Sitting in his recliner, watching TV. - Constitutional Present: no acute distress, well nourished, well developed, cooperative - Routine HEENT Exam Head: Present: normocephalic, atraumatic Eye: Present: PERRL. Absent: conjunctival icterus ENT: Present: mucous membranes moist, oropharynx clear - Routine Respiratory Exam Present: CTA bilaterally. Absent: respiratory distress, wheezes - Routine Cardiovascular Exam Present: RRR, S1, S2 - Routine Abdominal Exam Present: soft, normoactive bowel sounds, non distended - Routine Extremities Exam Present: no edema, full ROM, pulses intact - Routine Back/Spine/Pelvis Exam Back/Spine: Present: full ROM. Absent: vertebral tenderness - Routine Musculoskeletal Exam Musculoskeletal: Present: no clubbing or cyanosis, moving extremities well - Routine Skin Exam Present: intact, dry, warm Comments: Afebrile. - Routine Neurological Exam Present: alert, moving all extremities, hearing grossly intact, normal speech - Routine Lymphatic Exam Lymphatic: Absent: lymphedema - Routine Psychiatric Exam Present: cooperative Comments: tearful at time. 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 Lewis Medically doing well-BP, sugars, vitals stable. Emotional support for loss of spouse - very difficult transition for him. May consider psychiatric consult for acute grief and treatment recommendations. Continue with supportive care. Will recheck labs in AM to monitor blood counts, electrolytes and renal function. Case management assisting with discharge planning. Dr. Lewis to assume care on 03/03/18. Resuscitation Status: Full Code - Time spent with patient Time with patient PN: 25 minutes - Physician Narrative Physician: Chalino Puckett MD Narrative: Date: 03/02/18 Time: 1827 Have independently interviewed and examined pt. Chart reviewed. Cased discussed with my PA. Care plan developed with my supervision; agree with above. Doing well. Pain controlled. Breathing well. Eating well. Misses . Lungs: clear CV: regular Ab: soft nt/nd MSE: awake alert appropriate Plan: continue with supportive care, medically doing well. Hospital Course Summary Disclaimer: The visit summary below is not to be considered part of the above Progress Note. 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 Psychiatric evaluation suggested that the patient is not competent to make his own medication decisions. Case management is working on obtaining a guardian for the patient for consent to do a hip revision. Patient remains at high risk for recurrent dislocation, especially if transferred to [facility] nursing staff is well educated on precautions. Continue with current cares. Continue wedge pillow and straight leg immobilizer to minimize risk. Encourage participation in therapies to work with him on precautions and ambulation. Continue with bowel motivation. Recheck labs in AM to monitor blood counts, electrolytes and renal function. 02/16/18 [place] - Covering for Dr Lewis Clinically doing well. Forgetful about hip precautions. Plavix on hold for upcoming surgical procedure. Will start SCD for DVT prevention. Blood pressure and blood sugars stable - continue with current treatment. Encourage participation in therapies to work with him on precautions and ambulation. Patient remains at high risk for recurrent dislocation, especially if transferred to [facility] nursing staff is well educated on precautions. Anticipate Dr Lewis's return tomorrow. 02/19/18 [place] - Covering for Dr Lewis Will decrease IVF to 50cc/hr - oral drive with decrease. Encourage nursing to give Dulcolax to help with bowel function. Urine output slow-will place Herman, start bladder retraining, and initiate Flomax. Nursing not able to place Herman as pt very resistant to that intervention. Will hold on Herman, but continue Flomax. Continue with post op pain control and therapy. Blood sugars and pressure stable with current regimen. Lab ordered for tomorrow. 02/20/18 [place] - covering for Dr Lewis Hgb down to 7.0; will type and cross for 1 unit PRBC. With weight trending up give Lasix post-transfusion. DC IVF. Oral intake starting to improve today. Start tracking I/O - if UO does not improve may need to restart IVF. Renal function is stable. Constipation - BM on 02/1802/21/[address] Lewis Hgb 7.4, s/p 1 unit PRBC transfusion yesterday (and 2 units on 02/14). Dressing is reportedly c/d/i without drainage. Check stool for occult blood. Iron level was low at 34 on on 02/11. Platelets also showing downward trend: Hold naproxen & ASA. He is hemodynamically stable. Weight continues to trend up; he is up 6 kg from date of admission. Anemia could be partly dilutional in nature. Unable to calculate I/O d/t urinary incontinence. He is maintaining saturations on room air. CXR yesterday was negative. Electrolytes/renal function stable. 02/22/18 Hgb 7.2, s/p 3 unit PRBC during hospital course and has been treated with IV iron. Oral iron initiated. Hemoccult pending. Anticipate probable need for additional blood tomorrow, type and screen in a.m. Iron level was low at 34 on on 02/11. Hold naproxen & ASA. May be hemolyzing blood previously transfused, bilirubin normal yesterday-Check haptoglobin/LDH with labs tomorrow. Weight down 3 kg from yesterday but remains positive through the hospitalization and hemoglobin down slightly despite negative fluid balance yesterday. Patient describe dysuria yesterday and urinary frequency which he indicated has been present for about 6 months, UA negative. Urine volumes improving since Flomax initiated. Constipation resolved. Limited activity with physical therapy; guardianship pending to permit placement. 02/23/18 Hgb 7.6-slightly improved today, s/p 3 unit PRBC during hospital course and (2 units preceded VAIBHAV) and has been treated with IV iron. Oral iron initiated. Hemoccult pending. Continue iron therapy; no clear evidence of hemolysis thus far. Continue to monitor hemoglobin daily until above 8. Last bowel movement at least 4-5 days ago-MiraLAX/Senokot doses increased; may require milk of magnesia or alternate stimulant. Much more interactive/appropriate responses today. Will discuss with case management tomorrow, may benefit from repeat psychiatric assessment of competency. 02/24/18 Hgb 7.4. Stool for occult blood is pending. B12 also pending. Continue iron. ASA and Naproxen are on hold. Constipation - last BM 02/21 per RN. Will give Dulcolax today if no results. Good oral intake. VSS; hemodynamically stable. 02/25/18 Hgb 7.3. Stool for occult blood is pending (had BM last night but Hemoccult was not sent). B12 low normal at 272 - methylmalonic acid level ordered; initiate oral B-12 supplementation. Haptoglobin pending. Continue iron. ASA and Naproxen are on hold. Continues on Plavix. VSS; hemodynamically stable. Largely asymptomatic in regards to persistent anemia. Weight is up 2 kg over the past 48 hours-Lasix to be given again today. 02/26/18 [place] - Covering for Dr. Lewis Hemoglobin largely stable at 7.5 this am. Pain controlled. Tolerating therapy. Blood pressure and blood sugars stable - continue treatments. Continue with supportive care, support, and therapy. Anticipate Dr Lewis's return tomorrow. 03/01/18 [place] - Covering for Dr. Lewis Medically doing well-BP, sugars, vitals stable. Emotional support for loss of spouse - very difficult transition for him. Continue with supportive care. Plan - 03/02/18: Covering for Dr. Lewis Medically doing well-BP, sugars, vitals stable. Emotional support for loss of spouse - very difficult transition for him. May consider psychiatric consult for acute grief and treatment recommendations. Continue with supportive care. Will recheck labs in AM to monitor blood counts, electrolytes and renal function. Case management assisting with discharge planning. Dr. Lewis to assume care on 03/03/18.
[2018-03-02] MEDS: TAMSULOSIN 0.4 MG CAPSULE PO SCH (20:33)
[2018-03-02] MEDS: QUETIAPINE 50 MG TABLET PO SCH (20:33)
[2018-03-02] MEDS: SUCRALFATE 1 GM TABLET PO SCH (20:33)
[2018-03-02] MEDS: RANITIDINE 300 MG TABLET PO SCH (20:33)
[2018-03-03] MEDS: NOZIN NASAL SWAB NAS SCH ×4 (03:21→21:32)
[2018-03-03] MEDS: SALINE FLUSH 10ml SYRINGE IV PRN (06:25)
--- NOTE | 2018-03-03 08:22 | Orthopedic Progress Note ---
Date: Date: 03/03/18 Time: 818 Subjective/Severity of Illness: Mr Javy is sitting up in his chair. Reports his incisional pain is improving. His last week and is tomorrow in [place]. Pt wants to go but will have to be dependent on family to transport him. Pt is tearful this AM when talking about his . We are still awaiting guardianship from the State which may take quite some time. Orthopedic Exam Vital signs: Temperature 95.9 F L 02/05/18 15:57 Pulse Rate 64 02/05/18 15:57 Respiratory Rate 18 02/05/18 15:57 Blood Pressure 149/69 H 02/05/18 15:57 Pulse Oximetry 97 02/05/18 15:57 Vital Signs Temp Pulse Resp BP Pulse Ox 02/16/18 07:34 97.2 F 61 16 165/73 H 96 02/16/18 04:00 97.4 F 59 L 16 164/72 H 92 02/16/18 00:00 97.2 F 65 16 140/71 H 94 02/15/18 20:00 96.7 F L 66 20 106/56 93 02/15/18 16:36 96.6 F L 65 16 144/67 H 95 02/15/18 12:00 96.5 F L 61 16 159/71 H 94 Intake and Output 02/15/18 02/16/18 02/16/18 22:59 06:59 14:59 Intake Total 240 / 240 Output Total 200 / 200 350 / 350 Balance -200 / -200 -350 / -350 240 / 240 Intake: Oral 240 / 240 Output: Urine 200 / 200 350 / 350 Other: Urine Appearance Clear Clear Urine Color Yellow Yellow Stool Color Brown Stool Consistency Soft Size of Bowel Movement Smear # Voids 1 Weight 229 lb 11.547 oz Patient Weight 02/17/18 06:59 Weight 229 lb 11.547 oz - Constitutional General Appearance: Present: alert, no acute distress, well nourished, other ( Tearful at times today.) - Respiratory Exam Present: non-labored - Cardiovascular Exam Present: pedal pulses intact - Extremities Exam Present: pulses intact - Dressing Dressing: dry, intact, no drainage - Integumentary Exam Present: pink, warm, dry - Neurological Exam Present: intact to light touch, no deficits - Psychiatric Exam Present: alert - Labs Result Diagrams: 03/03/18 04:03 03/03/18 04:03 Abnormal lab results 03/03/18 Range/Units 04:03 RBC 2.92 L (4.50-5.90) M/MM3 Hgb 7.8 L (13.5-17.5) GM/DL Hct 25.0 L (41-53) % RDW Std Deviation 51.5 H (36.9-50.2) FL MPV 8.2 L (9.4-12.4) UM3 Immature Gran % (Auto) 1.7 H (0.0-0.5) % Abs Immat Gran (auto) 0.13 H (0.00-0.03) T/MM3 H & H 02/14/18 02/14/18 02/14/18 Range/Units 04:09 13:13 17:37 Hgb 8.7 L 9.8 L D 10.6 L (13.5-17.5) GM/DL Hct 27.9 L 31.5 L D (41-53) % 02/14/18 02/16/18 02/18/18 Range/Units 21:43 04:34 03:56 Hgb 10.9 L 10.7 L 10.8 L (13.5-17.5) GM/DL Hct 33.3 L 33.4 L (41-53) % 02/18/18 02/19/18 02/20/18 Range/Units 21:15 04:47 04:18 Hgb 9.3 L D 8.5 L 7.0 L D (13.5-17.5) GM/DL Hct 28.4 L D 26.5 L 21.9 L D (41-53) % 02/20/18 02/21/18 02/22/18 Range/Units 12:49 04:31 04:09 Hgb 7.9 L D 7.4 L 7.2 L (13.5-17.5) GM/DL Hct 23.2 L 22.7 L (41-53) % 02/23/18 02/24/18 02/25/18 Range/Units 03:57 04:12 04:11 Hgb 7.6 L 7.4 L 7.3 L (13.5-17.5) GM/DL Hct 23.6 L 23.0 L 23.2 L (41-53) % 02/26/18 03/03/18 Range/Units 03:58 04:03 Hgb 7.5 L 7.8 L (13.5-17.5) GM/DL Hct 23.8 L 25.0 L (41-53) % Orthopedic Assessment and Plan (1) Hip dislocation, right Status: Acute Qualifiers: Encounter type: initial encounter Qualified Code(s): S73.004A - Unspecified dislocation of right hip, initial encounter Problem Details: Recurrent, closed reduction in OR 02/04/18, 02/06/18, 02/12/18--> VAIBHAV 02/18/18 Assessment and Plan: Mr Foley was taken to the OR on 02/04/18, 02/06/18 & 02/12/18 for closed reduction of the right hip under anesthesia. 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 Continue hip precautions. Awaiting placement instructions. 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 Gaming Continues to do well from orthopedic standpoint, still awaiting guardianship for placement. Current anti-coagulation protocol- Plavix 75mg daily. ASA 81mg on hold due to continued anemia- per hospitalist. SCD's for added protection Dr. James managing medically - hospitalist covering at this time. PT/OT services to improve independent function. - Additional Diagnoses Atrial Fibrillation: rate controlled Diabetes: resume oral medications, other (Has been under good control.) CAD: no active chest pain Anemia: no intervention required Hospital Course Summary Disclaimer: The visit summary below is not to be considered part of the above Progress Note. 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 Psychiatric evaluation suggested that the patient is not competent to make his own medication decisions. Case management is working on obtaining a guardian for the patient for consent to do a hip revision. Patient remains at high risk for recurrent dislocation, especially if transferred to alf as [facility] nursing staff is well educated on precautions. Continue with current cares. Continue wedge pillow and straight leg immobilizer to minimize risk. Encourage participation in therapies to work with him on precautions and ambulation. Continue with bowel motivation. Recheck labs in AM to monitor blood counts, electrolytes and renal function. 02/16/18 [place] - Covering for Dr Lewis Clinically doing well. Forgetful about hip precautions. Plavix on hold for upcoming surgical procedure. Will start SCD for DVT prevention. Blood pressure and blood sugars stable - continue with current treatment. Encourage participation in therapies to work with him on precautions and ambulation. Patient remains at high risk for recurrent dislocation, especially if transferred to alf as [facility] nursing staff is well educated on precautions. Anticipate Dr Lewis's return tomorrow. 02/19/18 [place] - Covering for Dr Lewis Will decrease IVF to 50cc/hr - oral drive with decrease. Encourage nursing to give Dulcolax to help with bowel function. Urine output slow-will place Herman, start bladder retraining, and initiate Flomax. Nursing not able to place Herman as pt very resistant to that intervention. Will hold on Herman, but continue Flomax. Continue with post op pain control and therapy. Blood sugars and pressure stable with current regimen. Lab ordered for tomorrow. 02/20/18 [place] - covering for Dr Lewis Hgb down to 7.0; will type and cross for 1 unit PRBC. With weight trending up give Lasix post-transfusion. DC IVF. Oral intake starting to improve today. Start tracking I/O - if UO does not improve may need to restart IVF. Renal function is stable. Constipation - BM on 02/1802/21/[address] Lewis Hgb 7.4, s/p 1 unit PRBC transfusion yesterday (and 2 units on 02/14). Dressing is reportedly c/d/i without drainage. Check stool for occult blood. Iron level was low at 34 on on 02/11. Platelets also showing downward trend: Hold naproxen & ASA. He is hemodynamically stable. Weight continues to trend up; he is up 6 kg from date of admission. Anemia could be partly dilutional in nature. Unable to calculate I/O d/t urinary incontinence. He is maintaining saturations on room air. CXR yesterday was negative. Electrolytes/renal function stable. 02/22/18 Hgb 7.2, s/p 3 unit PRBC during hospital course and has been treated with IV iron. Oral iron initiated. Hemoccult pending. Anticipate probable need for additional blood tomorrow, type and screen in a.m. Iron level was low at 34 on on 02/11. Hold naproxen & ASA. May be hemolyzing blood previously transfused, bilirubin normal yesterday-Check haptoglobin/LDH with labs tomorrow. Weight down 3 kg from yesterday but remains positive through the hospitalization and hemoglobin down slightly despite negative fluid balance yesterday. Patient describe dysuria yesterday and urinary frequency which he indicated has been present for about 6 months, UA negative. Urine volumes improving since Flomax initiated. Constipation resolved. Limited activity with physical therapy; guardianship pending to permit placement. 02/23/18 Hgb 7.6-slightly improved today, s/p 3 unit PRBC during hospital course and (2 units preceded VAIBHAV) and has been treated with IV iron. Oral iron initiated. Hemoccult pending. Continue iron therapy; no clear evidence of hemolysis thus far. Continue to monitor hemoglobin daily until above 8. Last bowel movement at least 4-5 days ago-MiraLAX/Senokot doses increased; may require milk of magnesia or alternate stimulant. Much more interactive/appropriate responses today. Will discuss with case management tomorrow, may benefit from repeat psychiatric assessment of competency. 02/24/18 Hgb 7.4. Stool for occult blood is pending. B12 also pending. Continue iron. ASA and Naproxen are on hold. Constipation - last BM 02/21 per RN. Will give Dulcolax today if no results. Good oral intake. VSS; hemodynamically stable. 02/25/18 Hgb 7.3. Stool for occult blood is pending (had BM last night but Hemoccult was not sent). B12 low normal at 272 - methylmalonic acid level ordered; initiate oral B-12 supplementation. Haptoglobin pending. Continue iron. ASA and Naproxen are on hold. Continues on Plavix. VSS; hemodynamically stable. Largely asymptomatic in regards to persistent anemia. Weight is up 2 kg over the past 48 hours-Lasix to be given again today. 02/26/18 [place] - Covering for Dr. Lewis Hemoglobin largely stable at 7.5 this am. Pain controlled. Tolerating therapy. Blood pressure and blood sugars stable - continue treatments. Continue with supportive care, support, and therapy. Anticipate Dr Lewis's return tomorrow. 03/01/18 [place] - Covering for Dr. Lewis Medically doing well-BP, sugars, vitals stable. Emotional support for loss of spouse - very difficult transition for him. Continue with supportive care. Plan - 03/02/18: Covering for Dr. Lewis Medically doing well-BP, sugars, vitals stable. Emotional support for loss of spouse - very difficult transition for him. May consider psychiatric consult for acute grief and treatment recommendations. Continue with supportive care. Will recheck labs in AM to monitor blood counts, electrolytes and renal function. Case management assisting with discharge planning. Dr. Lewis to assume care on 03/03/18.
[2018-03-03] MEDS: FERROUS GLUCONATE 324 MG TABLET PO SCH (09:06)
[2018-03-03] MEDS: CYANOCOBALAMIN (B-12) 500mcg TABLET PO SCH (09:06)
[2018-03-03] MEDS: CLOPIDOGREL 75 MG TABLET PO SCH (09:06)
[2018-03-03] MEDS: ESCITALOPRAM 20 MG TABLET PO SCH (09:06)
[2018-03-03] MEDS: AMLODIPINE 5 MG TABLET PO SCH (09:06)
[2018-03-03] MEDS: ACETAMINOPHEN 325 MG TABLET PO SCH ×4 (09:06→21:29)
[2018-03-03] MEDS: POLYETHYL GLYCOL 3350 17gm PACKET PO SCH (09:07)
[2018-03-03] MEDS: SENNA + DOCUSATE TABLET PO SCH (09:07)
[2018-03-03] MEDS: CARVEDILOL 6.25 MG TABLET PO SCH ×2 (09:07→17:01)
--- NOTE | 2018-03-03 15:25 | Wound Care Progress Note ---
Wound Center Progress Note: Pt seen for wound consult r/t open lesion in R axillary region. Pt seen 02/26/18 for bilateral heel wounds. Pt resting in chair watching TV, heels resting on floor, no complaints of pain. "Are you here to get me out?" R axilla: raised, indurated lesion, middle of lesion has small area of slough, no drainage with manipulation. Periwound: bright pink, no pain. R heel: Stage 2 PI/blister, scant sanguineous drainage. Periwound: blanchable erythema. L lateral heel: purple area appears smaller, skin intact. Periwound: blanchable erythema. To R axilla: Apply Aquacel Ag, cover with mepilex, change q 3 days. R heel: Apply Aquacel Ag, cover with mepilex, change q 3 days, float heel, apply foam boot while in chair/bed. L heel: Continue to monitor, float heel, apply foam boot while in chair/bed. R axilla and R heel: cleaned, re-dressed, bilateral foam boots applied.
--- NOTE | 2018-03-03 15:29 | Wound Care Progress Note ---
Wound Management - Patient Status Premedicated Prior to Dressing Change: No - Wound Right Axilla Wound Type: raised lesion Length: 0.3 Width: 0.2 Depth: 0 (area is raised) Wound Bed Appearance: Slough [place] Wound Appearance: [place], Indurated, Well Defined Tunneling: No Undermining: No Drainage Amount: None Drainage Odor: No Odor Dressing Status: Changed Primary Dressing: Silver Dressing Secondary Dressing: Foam Dressing Dressing Change Date: 03/03/18 Dressing Change Time: 15:15 Dressing Change Patient Tolerance: Tolerated Well (To R axilla: Aquacel Ag/ mepilex, change q 3 days.)
[2018-03-03] MEDS: TRAMADOL 50 MG TABLET PO PRN (17:00)
[2018-03-03] MEDS: SUCRALFATE 1 GM TABLET PO SCH (21:30)
[2018-03-03] MEDS: TAMSULOSIN 0.4 MG CAPSULE PO SCH (21:30)
[2018-03-03] MEDS: QUETIAPINE 50 MG TABLET PO SCH (21:30)
[2018-03-03] MEDS: RANITIDINE 300 MG TABLET PO SCH (21:31)
[2018-03-04] MEDS: POLYETHYL GLYCOL 3350 17gm PACKET PO SCH ×3 (01:43→20:28)
[2018-03-04] MEDS: SENNA + DOCUSATE TABLET PO SCH ×3 (01:44→20:26)
[2018-03-04] MEDS: NOZIN NASAL SWAB NAS SCH ×2 (05:17→14:09)
--- NOTE | 2018-03-04 06:50 | Progress Note ---
DATE 03/03/2018 Jonathan Mahajan has been a patient under my care for some time now. He and his Jie have been patients of ours at [facility] for probably 15 years. Jie, unfortunately, recently on February 27 of this year and her is tomorrow morning. Jonathan was initially admitted for a hip dislocation which subsequently dislocated a second time and needed to be surgically repaired. Additionally, he has suffered from anemia and has received transfusions and iron replacement. Along with these multiple medical problems, also including hypertension and diabetes, he has been deemed unfit to make his own medical decisions. After interviewing and examining him today, it is quite clear that he fully understands the of his and its impact on him is great. It seems that Roya of Case Management has made multiple attempts to have family members come pick him up for the under a temporary patient pass and they have been refusing. I believe that it is in his best interest and, especially from a medical perspective, to have grieving and closure to his 's after 58 years of marriage and I am encouraging the patient and staff to make it possible for him to attend her . He states to me that he has a friend that was very close to he and Jie in their zoroastrianism that is willing and able to pick him up from the hospital and take him to the [facility] at 10:30 and then the mass which is to follow and then a graveside which is actually not in [place] as the other two but in [place] and then back to the hospital. He also states that she is willing to do so. It is my medical opinion that this is in his best interest and that he should attend that and so I am completing a temporary absence release on behalf of him and if indeed this zoroastrianism family friend is willing to pick him up and take him to the I would be agreeable. ELI
[2018-03-04] MEDS: CYANOCOBALAMIN (B-12) 500mcg TABLET PO SCH ×2 (07:38→09:43)
[2018-03-04] MEDS: CARVEDILOL 6.25 MG TABLET PO SCH ×2 (07:38→16:31)
[2018-03-04] MEDS: CLOPIDOGREL 75 MG TABLET PO SCH ×2 (07:38→09:43)
[2018-03-04] MEDS: ACETAMINOPHEN 325 MG TABLET PO SCH ×5 (07:39→20:25)
[2018-03-04] MEDS: ESCITALOPRAM 20 MG TABLET PO SCH ×2 (07:39→09:43)
[2018-03-04] MEDS: FERROUS GLUCONATE 324 MG TABLET PO SCH (07:39)
[2018-03-04] MEDS: AMLODIPINE 5 MG TABLET PO SCH ×2 (07:40→09:43)
[2018-03-04] MEDS: TAMSULOSIN 0.4 MG CAPSULE PO SCH (20:26)
[2018-03-04] MEDS: RANITIDINE 150 MG TABLET PO SCH (20:26)
[2018-03-04] MEDS: SUCRALFATE 1 GM TABLET PO SCH (20:26)
[2018-03-04] MEDS: QUETIAPINE 50 MG TABLET PO SCH (20:27)
[2018-03-05] MEDS: AMLODIPINE 5 MG TABLET PO SCH (08:33)
[2018-03-05] MEDS: CYANOCOBALAMIN (B-12) 500mcg TABLET PO SCH (08:33)
[2018-03-05] MEDS: ACETAMINOPHEN 325 MG TABLET PO SCH ×4 (08:33→22:19)
[2018-03-05] MEDS: ESCITALOPRAM 20 MG TABLET PO SCH (08:33)
[2018-03-05] MEDS: CLOPIDOGREL 75 MG TABLET PO SCH (08:33)
[2018-03-05] MEDS: POLYETHYL GLYCOL 3350 17gm PACKET PO SCH ×2 (08:34→20:25)
[2018-03-05] MEDS: FERROUS GLUCONATE 324 MG TABLET PO SCH (08:34)
[2018-03-05] MEDS: SENNA + DOCUSATE TABLET PO SCH ×2 (08:34→20:24)
[2018-03-05] MEDS: CARVEDILOL 6.25 MG TABLET PO SCH ×2 (08:34→18:10)
[2018-03-05] MEDS: RANITIDINE 150 MG TABLET PO SCH (20:24)
[2018-03-05] MEDS: TAMSULOSIN 0.4 MG CAPSULE PO SCH (20:24)
[2018-03-05] MEDS: SUCRALFATE 1 GM TABLET PO SCH (20:24)
[2018-03-05] MEDS: QUETIAPINE 50 MG TABLET PO SCH (20:25)
[2018-03-06] MEDS: CARVEDILOL 6.25 MG TABLET PO SCH ×2 (08:27→16:31)
[2018-03-06] MEDS: ACETAMINOPHEN 325 MG TABLET PO SCH ×4 (08:28→20:30)
[2018-03-06] MEDS: AMLODIPINE 5 MG TABLET PO SCH (08:28)
[2018-03-06] MEDS: CLOPIDOGREL 75 MG TABLET PO SCH (08:28)
[2018-03-06] MEDS: CYANOCOBALAMIN (B-12) 500mcg TABLET PO SCH (08:28)
[2018-03-06] MEDS: ESCITALOPRAM 20 MG TABLET PO SCH (08:28)
[2018-03-06] MEDS: FERROUS GLUCONATE 324 MG TABLET PO SCH (08:29)
[2018-03-06] MEDS: SENNA + DOCUSATE TABLET PO SCH ×2 (08:29→20:30)
[2018-03-06] MEDS: POLYETHYL GLYCOL 3350 17gm PACKET PO SCH ×2 (08:29→20:30)
--- NOTE | 2018-03-06 13:07 | Orthopedic Progress Note ---
Date: Date: 03/06/18 Time: 1304 Subjective/Severity of Illness: Jonathan is sitting up in the bed this morning on rounds. He denies any complaints with right hip. He states he is depressed, he wants to go home and is having difficult with passing of his . Denies SI. Denies CP, SOA, nausea. Exam - Constitutional Vital Signs: Temperature 97.1 F 03/06/18 07:48 Pulse Rate 62 03/06/18 07:48 Respiratory Rate 18 03/06/18 07:48 Blood Pressure 146/79 H 03/06/18 07:48 Pulse Oximetry 97 03/06/18 07:48 General: cooperative, healthy appearing, no acute distress, well developed, well groomed Nutritional Appearance: well nourished Orientation: alert, oriented x3 - RLE Postoperative Appearance: extremity compartments are soft and nontender, neurovascullary intact to extremities Neurological: no deficits, normal to light touch Vascular: dorsalis pedis pulse within normal limits Right Lower Extremity comments: Mepilex right hip. - Respiratory Respiratory Exam: non-labored - Cardiac Cardiovascular exam: pedal pulses intact - Abdominal GI/Abdominal Exam: soft - Labs Result Diagrams: 03/03/18 04:03 03/03/18 04:03 H & H 02/14/18 02/14/18 02/14/18 Range/Units 04:09 13:13 17:37 Hgb 8.7 L 9.8 L D 10.6 L (13.5-17.5) GM/DL Hct 27.9 L 31.5 L D (41-53) % 02/14/18 02/16/18 02/18/18 Range/Units 21:43 04:34 03:56 Hgb 10.9 L 10.7 L 10.8 L (13.5-17.5) GM/DL Hct 33.3 L 33.4 L (41-53) % 02/18/18 02/19/18 02/20/18 Range/Units 21:15 04:47 04:18 Hgb 9.3 L D 8.5 L 7.0 L D (13.5-17.5) GM/DL Hct 28.4 L D 26.5 L 21.9 L D (41-53) % 02/20/18 02/21/18 02/22/18 Range/Units 12:49 04:31 04:09 Hgb 7.9 L D 7.4 L 7.2 L (13.5-17.5) GM/DL Hct 23.2 L 22.7 L (41-53) % 02/23/18 02/24/18 02/25/18 Range/Units 03:57 04:12 04:11 Hgb 7.6 L 7.4 L 7.3 L (13.5-17.5) GM/DL Hct 23.6 L 23.0 L 23.2 L (41-53) % 02/26/18 03/03/18 Range/Units 03:58 04:03 Hgb 7.5 L 7.8 L (13.5-17.5) GM/DL Hct 23.8 L 25.0 L (41-53) % Orthopedic Assessment and Plan (1) Hip dislocation, right Status: Acute Qualifiers: Encounter type: initial encounter Qualified Code(s): S73.004A - Unspecified dislocation of right hip, initial encounter Problem Details: Recurrent, closed reduction in OR 02/04/18, 02/06/18, 02/12/18--> VAIBHAV 02/18/18 Assessment and Plan: Mr Foley was taken to the OR on 02/04/18, 02/06/18 & 02/12/18 for closed reduction of the right hip under anesthesia. 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 Continue hip precautions. Awaiting placement instructions. 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 Gaming Continues to do well from orthopedic standpoint, still awaiting guardianship for placement. Current anti-coagulation protocol- Plavix 75mg daily. ASA 81mg on hold due to continued anemia- per hospitalist. SCD's for added protection Dr. James managing medically, will defer depression medication management to Dr. Lewis. PT/OT services to improve independent function. - Additional Diagnoses Atrial Fibrillation: rate controlled Diabetes: resume oral medications, other (Has been under good control.) CAD: no active chest pain Anemia: no intervention required Hospital Course Summary Disclaimer: The visit summary below is not to be considered part of the above Progress Note. 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 Psychiatric evaluation suggested that the patient is not competent to make his own medication decisions. Case management is working on obtaining a guardian for the patient for consent to do a hip revision. Patient remains at high risk for recurrent dislocation, especially if transferred to long term as [facility] nursing staff is well educated on precautions. Continue with current cares. Continue wedge pillow and straight leg immobilizer to minimize risk. Encourage participation in therapies to work with him on precautions and ambulation. Continue with bowel motivation. Recheck labs in AM to monitor blood counts, electrolytes and renal function. 02/16/18 [place] - Covering for Dr Lewis Clinically doing well. Forgetful about hip precautions. Plavix on hold for upcoming surgical procedure. Will start SCD for DVT prevention. Blood pressure and blood sugars stable - continue with current treatment. Encourage participation in therapies to work with him on precautions and ambulation. Patient remains at high risk for recurrent dislocation, especially if transferred to long term as [facility] nursing staff is well educated on precautions. Anticipate Dr Lewis's return tomorrow. 02/19/18 [place] - Covering for Dr Lewis Will decrease IVF to 50cc/hr - oral drive with decrease. Encourage nursing to give Dulcolax to help with bowel function. Urine output slow-will place Herman, start bladder retraining, and initiate Flomax. Nursing not able to place Herman as pt very resistant to that intervention. Will hold on Herman, but continue Flomax. Continue with post op pain control and therapy. Blood sugars and pressure stable with current regimen. Lab ordered for tomorrow. 02/20/18 [place] - covering for Dr Lewis Hgb down to 7.0; will type and cross for 1 unit PRBC. With weight trending up give Lasix post-transfusion. DC IVF. Oral intake starting to improve today. Start tracking I/O - if UO does not improve may need to restart IVF. Renal function is stable. Constipation - BM on 02/1802/21/[address] Lewis Hgb 7.4, s/p 1 unit PRBC transfusion yesterday (and 2 units on 02/14). Dressing is reportedly c/d/i without drainage. Check stool for occult blood. Iron level was low at 34 on on 02/11. Platelets also showing downward trend: Hold naproxen & ASA. He is hemodynamically stable. Weight continues to trend up; he is up 6 kg from date of admission. Anemia could be partly dilutional in nature. Unable to calculate I/O d/t urinary incontinence. He is maintaining saturations on room air. CXR yesterday was negative. Electrolytes/renal function stable. 02/22/18 Hgb 7.2, s/p 3 unit PRBC during hospital course and has been treated with IV iron. Oral iron initiated. Hemoccult pending. Anticipate probable need for additional blood tomorrow, type and screen in a.m. Iron level was low at 34 on on 02/11. Hold naproxen & ASA. May be hemolyzing blood previously transfused, bilirubin normal yesterday-Check haptoglobin/LDH with labs tomorrow. Weight down 3 kg from yesterday but remains positive through the hospitalization and hemoglobin down slightly despite negative fluid balance yesterday. Patient describe dysuria yesterday and urinary frequency which he indicated has been present for about 6 months, UA negative. Urine volumes improving since Flomax initiated. Constipation resolved. Limited activity with physical therapy; guardianship pending to permit placement. 02/23/18 Hgb 7.6-slightly improved today, s/p 3 unit PRBC during hospital course and (2 units preceded VAIBHAV) and has been treated with IV iron. Oral iron initiated. Hemoccult pending. Continue iron therapy; no clear evidence of hemolysis thus far. Continue to monitor hemoglobin daily until above 8. Last bowel movement at least 4-5 days ago-MiraLAX/Senokot doses increased; may require milk of magnesia or alternate stimulant. Much more interactive/appropriate responses today. Will discuss with case management tomorrow, may benefit from repeat psychiatric assessment of competency. 02/24/18 Hgb 7.4. Stool for occult blood is pending. B12 also pending. Continue iron. ASA and Naproxen are on hold. Constipation - last BM 02/21 per RN. Will give Dulcolax today if no results. Good oral intake. VSS; hemodynamically stable. 02/25/18 Hgb 7.3. Stool for occult blood is pending (had BM last night but Hemoccult was not sent). B12 low normal at 272 - methylmalonic acid level ordered; initiate oral B-12 supplementation. Haptoglobin pending. Continue iron. ASA and Naproxen are on hold. Continues on Plavix. VSS; hemodynamically stable. Largely asymptomatic in regards to persistent anemia. Weight is up 2 kg over the past 48 hours-Lasix to be given again today. 02/26/18 [place] - Covering for Dr. Lewis Hemoglobin largely stable at 7.5 this am. Pain controlled. Tolerating therapy. Blood pressure and blood sugars stable - continue treatments. Continue with supportive care, support, and therapy. Anticipate Dr Lewis's return tomorrow. 03/01/18 [place] - Covering for Dr. Lewis Medically doing well-BP, sugars, vitals stable. Emotional support for loss of spouse - very difficult transition for him. Continue with supportive care. Plan - 03/02/18: Covering for Dr. Lewis Medically doing well-BP, sugars, vitals stable. Emotional support for loss of spouse - very difficult transition for him. May consider psychiatric consult for acute grief and treatment recommendations. Continue with supportive care. Will recheck labs in AM to monitor blood counts, electrolytes and renal function. Case management assisting with discharge planning. Dr. Lewis to assume care on 03/03/18.
[2018-03-06] MEDS: QUETIAPINE 50 MG TABLET PO SCH (20:31)
[2018-03-06] MEDS: RANITIDINE 150 MG TABLET PO SCH (20:31)
[2018-03-06] MEDS: SUCRALFATE 1 GM TABLET PO SCH (20:31)
[2018-03-06] MEDS: SALINE FLUSH 10ml SYRINGE IV PRN (20:31)
[2018-03-06] MEDS: TAMSULOSIN 0.4 MG CAPSULE PO SCH (20:31)
[2018-03-07] MEDS: SALINE FLUSH 10ml SYRINGE IV PRN ×2 (06:33→20:13)
[2018-03-07] MEDS: FERROUS GLUCONATE 324 MG TABLET PO SCH (08:11)
[2018-03-07] MEDS: ACETAMINOPHEN 325 MG TABLET PO SCH ×4 (08:11→20:12)
[2018-03-07] MEDS: CARVEDILOL 6.25 MG TABLET PO SCH ×2 (08:11→17:21)
[2018-03-07] MEDS: SENNA + DOCUSATE TABLET PO SCH ×2 (08:12→20:11)
[2018-03-07] MEDS: AMLODIPINE 5 MG TABLET PO SCH (08:12)
[2018-03-07] MEDS: ESCITALOPRAM 20 MG TABLET PO SCH (08:12)
[2018-03-07] MEDS: CYANOCOBALAMIN (B-12) 500mcg TABLET PO SCH (08:12)
[2018-03-07] MEDS: CLOPIDOGREL 75 MG TABLET PO SCH (08:12)
[2018-03-07] MEDS: POLYETHYL GLYCOL 3350 17gm PACKET PO SCH ×2 (08:13→20:13)
--- NOTE | 2018-03-07 12:47 | Orthopedic Progress Note ---
Date: Date: 03/07/18 Time: 1244 Subjective/Severity of Illness: Jonathan is feeling good this am. This is the first morning in quite a while that he did not break down crying. He is on Lexapro. Pain is controlled. Dressing is off and wound looks good. Orthopedic Exam Vital signs: Temperature 95.9 F L 02/05/18 15:57 Pulse Rate 64 02/05/18 15:57 Respiratory Rate 18 02/05/18 15:57 Blood Pressure 149/69 H 02/05/18 15:57 Pulse Oximetry 97 02/05/18 15:57 Vital Signs Temp Pulse Resp BP Pulse Ox 02/16/18 07:34 97.2 F 61 16 165/73 H 96 02/16/18 04:00 97.4 F 59 L 16 164/72 H 92 02/16/18 00:00 97.2 F 65 16 140/71 H 94 02/15/18 20:00 96.7 F L 66 20 106/56 93 02/15/18 16:36 96.6 F L 65 16 144/67 H 95 02/15/18 12:00 96.5 F L 61 16 159/71 H 94 Intake and Output 02/15/18 02/16/18 02/16/18 22:59 06:59 14:59 Intake Total 240 / 240 Output Total 200 / 200 350 / 350 Balance -200 / -200 -350 / -350 240 / 240 Intake: Oral 240 / 240 Output: Urine 200 / 200 350 / 350 Other: Urine Appearance Clear Clear Urine Color Yellow Yellow Stool Color Brown Stool Consistency Soft Size of Bowel Movement Smear # Voids 1 Weight 229 lb 11.547 oz Patient Weight 02/17/18 06:59 Weight 229 lb 11.547 oz - Constitutional General Appearance: Present: alert, no acute distress, well nourished, other ( Tearful at times today.) - Respiratory Exam Present: non-labored - Cardiovascular Exam Present: pedal pulses intact - Abdominal Exam Present: soft - Extremities Exam Present: pulses intact - Dressing Dressing: no drainage - Hip Exam right Hip Exam: Present: alignment normal - Integumentary Exam Present: pink, warm, dry - Lymphatic Lymphatic: Absent: lymphedema - Neurological Exam Present: intact to light touch, no deficits - Psychiatric Exam Present: alert - Labs Result Diagrams: 03/03/18 04:03 03/03/18 04:03 H & H 02/14/18 02/14/18 02/14/18 Range/Units 04:09 13:13 17:37 Hgb 8.7 L 9.8 L D 10.6 L (13.5-17.5) GM/DL Hct 27.9 L 31.5 L D (41-53) % 02/14/18 02/16/18 02/18/18 Range/Units 21:43 04:34 03:56 Hgb 10.9 L 10.7 L 10.8 L (13.5-17.5) GM/DL Hct 33.3 L 33.4 L (41-53) % 02/18/18 02/19/18 02/20/18 Range/Units 21:15 04:47 04:18 Hgb 9.3 L D 8.5 L 7.0 L D (13.5-17.5) GM/DL Hct 28.4 L D 26.5 L 21.9 L D (41-53) % 02/20/18 02/21/18 02/22/18 Range/Units 12:49 04:31 04:09 Hgb 7.9 L D 7.4 L 7.2 L (13.5-17.5) GM/DL Hct 23.2 L 22.7 L (41-53) % 02/23/18 02/24/18 02/25/18 Range/Units 03:57 04:12 04:11 Hgb 7.6 L 7.4 L 7.3 L (13.5-17.5) GM/DL Hct 23.6 L 23.0 L 23.2 L (41-53) % 02/26/18 03/03/18 Range/Units 03:58 04:03 Hgb 7.5 L 7.8 L (13.5-17.5) GM/DL Hct 23.8 L 25.0 L (41-53) % Orthopedic Assessment and Plan (1) Hip dislocation, right Status: Acute Qualifiers: Encounter type: initial encounter Qualified Code(s): S73.004A - Unspecified dislocation of right hip, initial encounter Problem Details: Recurrent, closed reduction in OR 02/04/18, 02/06/18, 02/12/18--> VAIBHAV 02/18/18 Assessment and Plan: Mr Foley was taken to the OR on 02/04/18, 02/06/18 & 02/12/18 for closed reduction of the right hip under anesthesia. 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 Continue hip precautions. Awaiting placement instructions. 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 Gaming Continues to do well from orthopedic standpoint, still awaiting guardianship for placement. Current anti-coagulation protocol- Plavix 75mg daily. ASA 81mg on hold due to continued anemia- per hospitalist. SCD's for added protection Dr. James managing medically, will defer depression medication management to Dr. Lewis. Pt currently on Lexapro and seems better today. Pt is diabetic and getting daily blood sugars checked. He has not been restarted on his Metformin. Dr Gaming wants Dr Lewis or Hospitalist to manage this. PT/OT services to improve independent function. - Additional Diagnoses Atrial Fibrillation: rate controlled CAD: no active chest pain Anemia: no intervention required Hospital Course Summary Disclaimer: The visit summary below is not to be considered part of the above Progress Note. 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 Psychiatric evaluation suggested that the patient is not competent to make his own medication decisions. Case management is working on obtaining a guardian for the patient for consent to do a hip revision. Patient remains at high risk for recurrent dislocation, especially if transferred to intermediate as [facility] nursing staff is well educated on precautions. Continue with current cares. Continue wedge pillow and straight leg immobilizer to minimize risk. Encourage participation in therapies to work with him on precautions and ambulation. Continue with bowel motivation. Recheck labs in AM to monitor blood counts, electrolytes and renal function. 02/16/18 [place] - Covering for Dr Lewis Clinically doing well. Forgetful about hip precautions. Plavix on hold for upcoming surgical procedure. Will start SCD for DVT prevention. Blood pressure and blood sugars stable - continue with current treatment. Encourage participation in therapies to work with him on precautions and ambulation. Patient remains at high risk for recurrent dislocation, especially if transferred to intermediate as [facility] nursing staff is well educated on precautions. Anticipate Dr Lewis's return tomorrow. 02/19/18 [place] - Covering for Dr Lewis Will decrease IVF to 50cc/hr - oral drive with decrease. Encourage nursing to give Dulcolax to help with bowel function. Urine output slow-will place Herman, start bladder retraining, and initiate Flomax. Nursing not able to place Herman as pt very resistant to that intervention. Will hold on Herman, but continue Flomax. Continue with post op pain control and therapy. Blood sugars and pressure stable with current regimen. Lab ordered for tomorrow. 02/20/18 [place] - covering for Dr Lewis Hgb down to 7.0; will type and cross for 1 unit PRBC. With weight trending up give Lasix post-transfusion. DC IVF. Oral intake starting to improve today. Start tracking I/O - if UO does not improve may need to restart IVF. Renal function is stable. Constipation - BM on 02/1802/21/[address] Lewis Hgb 7.4, s/p 1 unit PRBC transfusion yesterday (and 2 units on 02/14). Dressing is reportedly c/d/i without drainage. Check stool for occult blood. Iron level was low at 34 on on 02/11. Platelets also showing downward trend: Hold naproxen & ASA. He is hemodynamically stable. Weight continues to trend up; he is up 6 kg from date of admission. Anemia could be partly dilutional in nature. Unable to calculate I/O d/t urinary incontinence. He is maintaining saturations on room air. CXR yesterday was negative. Electrolytes/renal function stable. 02/22/18 Hgb 7.2, s/p 3 unit PRBC during hospital course and has been treated with IV iron. Oral iron initiated. Hemoccult pending. Anticipate probable need for additional blood tomorrow, type and screen in a.m. Iron level was low at 34 on on 02/11. Hold naproxen & ASA. May be hemolyzing blood previously transfused, bilirubin normal yesterday-Check haptoglobin/LDH with labs tomorrow. Weight down 3 kg from yesterday but remains positive through the hospitalization and hemoglobin down slightly despite negative fluid balance yesterday. Patient describe dysuria yesterday and urinary frequency which he indicated has been present for about 6 months, UA negative. Urine volumes improving since Flomax initiated. Constipation resolved. Limited activity with physical therapy; guardianship pending to permit placement. 02/23/18 Hgb 7.6-slightly improved today, s/p 3 unit PRBC during hospital course and (2 units preceded VAIBHAV) and has been treated with IV iron. Oral iron initiated. Hemoccult pending. Continue iron therapy; no clear evidence of hemolysis thus far. Continue to monitor hemoglobin daily until above 8. Last bowel movement at least 4-5 days ago-MiraLAX/Senokot doses increased; may require milk of magnesia or alternate stimulant. Much more interactive/appropriate responses today. Will discuss with case management tomorrow, may benefit from repeat psychiatric assessment of competency. 02/24/18 Hgb 7.4. Stool for occult blood is pending. B12 also pending. Continue iron. ASA and Naproxen are on hold. Constipation - last BM 02/21 per RN. Will give Dulcolax today if no results. Good oral intake. VSS; hemodynamically stable. 02/25/18 Hgb 7.3. Stool for occult blood is pending (had BM last night but Hemoccult was not sent). B12 low normal at 272 - methylmalonic acid level ordered; initiate oral B-12 supplementation. Haptoglobin pending. Continue iron. ASA and Naproxen are on hold. Continues on Plavix. VSS; hemodynamically stable. Largely asymptomatic in regards to persistent anemia. Weight is up 2 kg over the past 48 hours-Lasix to be given again today. 02/26/18 [place] - Covering for Dr. Lewis Hemoglobin largely stable at 7.5 this am. Pain controlled. Tolerating therapy. Blood pressure and blood sugars stable - continue treatments. Continue with supportive care, support, and therapy. Anticipate Dr Lewis's return tomorrow. 03/01/18 [place] - Covering for Dr. Lewis Medically doing well-BP, sugars, vitals stable. Emotional support for loss of spouse - very difficult transition for him. Continue with supportive care. Plan - 03/02/18: Covering for Dr. Lewis Medically doing well-BP, sugars, vitals stable. Emotional support for loss of spouse - very difficult transition for him. May consider psychiatric consult for acute grief and treatment recommendations. Continue with supportive care. Will recheck labs in AM to monitor blood counts, electrolytes and renal function. Case management assisting with discharge planning. Dr. Lewis to assume care on 03/03/18.
[2018-03-07] MEDS: METFORMIN 1,000 MG TABLET PO SCH (17:21)
[2018-03-07] MEDS: TAMSULOSIN 0.4 MG CAPSULE PO SCH (20:12)
[2018-03-07] MEDS: RANITIDINE 150 MG TABLET PO SCH (20:12)
[2018-03-07] MEDS: QUETIAPINE 50 MG TABLET PO SCH (20:12)
[2018-03-07] MEDS: SUCRALFATE 1 GM TABLET PO SCH (20:13)
[2018-03-08] MEDS: CYANOCOBALAMIN (B-12) 500mcg TABLET PO SCH (09:01)
[2018-03-08] MEDS: CARVEDILOL 6.25 MG TABLET PO SCH ×2 (09:01→17:33)
[2018-03-08] MEDS: AMLODIPINE 5 MG TABLET PO SCH (09:01)
[2018-03-08] MEDS: ESCITALOPRAM 20 MG TABLET PO SCH (09:01)
[2018-03-08] MEDS: METFORMIN 1,000 MG TABLET PO SCH ×2 (09:01→17:33)
[2018-03-08] MEDS: CLOPIDOGREL 75 MG TABLET PO SCH (09:02)
[2018-03-08] MEDS: SENNA + DOCUSATE TABLET PO SCH ×2 (09:02→20:58)
[2018-03-08] MEDS: ACETAMINOPHEN 325 MG TABLET PO SCH ×4 (09:03→20:58)
[2018-03-08] MEDS: POLYETHYL GLYCOL 3350 17gm PACKET PO SCH ×2 (09:03→20:58)
[2018-03-08] MEDS: FERROUS GLUCONATE 324 MG TABLET PO SCH (09:03)
--- NOTE | 2018-03-08 18:19 | Orthopedic Progress Note ---
Date: Date: 03/08/18 Time: 1816 Subjective/Severity of Illness: Doing well. No complaints today. Labs show hgb is improving. Orthopedic Exam Vital signs: Temperature 95.9 F L 02/05/18 15:57 Pulse Rate 64 02/05/18 15:57 Respiratory Rate 18 02/05/18 15:57 Blood Pressure 149/69 H 02/05/18 15:57 Pulse Oximetry 97 02/05/18 15:57 Vital Signs Temp Pulse Resp BP Pulse Ox 02/16/18 07:34 97.2 F 61 16 165/73 H 96 02/16/18 04:00 97.4 F 59 L 16 164/72 H 92 02/16/18 00:00 97.2 F 65 16 140/71 H 94 02/15/18 20:00 96.7 F L 66 20 106/56 93 02/15/18 16:36 96.6 F L 65 16 144/67 H 95 02/15/18 12:00 96.5 F L 61 16 159/71 H 94 Intake and Output 02/15/18 02/16/18 02/16/18 22:59 06:59 14:59 Intake Total 240 / 240 Output Total 200 / 200 350 / 350 Balance -200 / -200 -350 / -350 240 / 240 Intake: Oral 240 / 240 Output: Urine 200 / 200 350 / 350 Other: Urine Appearance Clear Clear Urine Color Yellow Yellow Stool Color Brown Stool Consistency Soft Size of Bowel Movement Smear # Voids 1 Weight 229 lb 11.547 oz Patient Weight 02/17/18 06:59 Weight 229 lb 11.547 oz - Constitutional General Appearance: Present: alert, no acute distress, well nourished - Respiratory Exam Present: non-labored - Cardiovascular Exam Present: pedal pulses intact - Abdominal Exam Present: soft - Extremities Exam Present: pulses intact - Dressing Dressing: no drainage - Hip Exam right Hip Exam: Present: alignment normal - Integumentary Exam Present: pink, warm, dry - Neurological Exam Present: intact to light touch, no deficits - Psychiatric Exam Present: alert - Labs Result Diagrams: 03/08/18 04:49 03/03/18 04:03 Abnormal lab results 03/08/18 Range/Units 04:49 RBC 3.43 L (4.50-5.90) M/MM3 Hgb 9.1 L (13.5-17.5) GM/DL Hct 29.4 L (41-53) % RDW Std Deviation 51.9 H (36.9-50.2) FL MPV 8.6 L (9.4-12.4) UM3 H & H 02/14/18 02/14/18 02/14/18 Range/Units 04:09 13:13 17:37 Hgb 8.7 L 9.8 L D 10.6 L (13.5-17.5) GM/DL Hct 27.9 L 31.5 L D (41-53) % 02/14/18 02/16/18 02/18/18 Range/Units 21:43 04:34 03:56 Hgb 10.9 L 10.7 L 10.8 L (13.5-17.5) GM/DL Hct 33.3 L 33.4 L (41-53) % 02/18/18 02/19/18 02/20/18 Range/Units 21:15 04:47 04:18 Hgb 9.3 L D 8.5 L 7.0 L D (13.5-17.5) GM/DL Hct 28.4 L D 26.5 L 21.9 L D (41-53) % 02/20/18 02/21/18 02/22/18 Range/Units 12:49 04:31 04:09 Hgb 7.9 L D 7.4 L 7.2 L (13.5-17.5) GM/DL Hct 23.2 L 22.7 L (41-53) % 02/23/18 02/24/18 02/25/18 Range/Units 03:57 04:12 04:11 Hgb 7.6 L 7.4 L 7.3 L (13.5-17.5) GM/DL Hct 23.6 L 23.0 L 23.2 L (41-53) % 02/26/18 03/03/18 03/08/18 Range/Units 03:58 04:03 04:49 Hgb 7.5 L 7.8 L 9.1 L (13.5-17.5) GM/DL Hct 23.8 L 25.0 L 29.4 L (41-53) % Orthopedic Assessment and Plan (1) Hip dislocation, right Status: Acute Qualifiers: Encounter type: initial encounter Qualified Code(s): S73.004A - Unspecified dislocation of right hip, initial encounter Problem Details: Recurrent, closed reduction in OR 02/04/18, 02/06/18, 02/12/18--> VAIBHAV 02/18/18 Assessment and Plan: Mr Foley was taken to the OR on 02/04/18, 02/06/18 & 02/12/18 for closed reduction of the right hip under anesthesia. 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 Continue hip precautions. Awaiting placement instructions. 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 Gaming Continues to do well from orthopedic standpoint, still awaiting guardianship for placement. Current anti-coagulation protocol- Plavix 75mg daily. ASA 81mg. SCD's for added protection Dr. James managing medically, will defer depression medication management to Dr. Lewis. Pt currently on Lexapro and seems better today. monitoring blood sugars PRN. PT/OT services to improve independent function. - Additional Diagnoses Atrial Fibrillation: rate controlled Diabetes: resume oral medications, other (Has been under good control.) CAD: no active chest pain Anemia: no intervention required Hospital Course Summary Disclaimer: The visit summary below is not to be considered part of the above Progress Note. 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 Psychiatric evaluation suggested that the patient is not competent to make his own medication decisions. Case management is working on obtaining a guardian for the patient for consent to do a hip revision. Patient remains at high risk for recurrent dislocation, especially if transferred to skilled nursing as [facility] nursing staff is well educated on precautions. Continue with current cares. Continue wedge pillow and straight leg immobilizer to minimize risk. Encourage participation in therapies to work with him on precautions and ambulation. Continue with bowel motivation. Recheck labs in AM to monitor blood counts, electrolytes and renal function. 02/16/18 [place] - Covering for Dr Lewis Clinically doing well. Forgetful about hip precautions. Plavix on hold for upcoming surgical procedure. Will start SCD for DVT prevention. Blood pressure and blood sugars stable - continue with current treatment. Encourage participation in therapies to work with him on precautions and ambulation. Patient remains at high risk for recurrent dislocation, especially if transferred to skilled nursing as [facility] nursing staff is well educated on precautions. Anticipate Dr Lewis's return tomorrow. 02/19/18 [place] - Covering for Dr Lewis Will decrease IVF to 50cc/hr - oral drive with decrease. Encourage nursing to give Dulcolax to help with bowel function. Urine output slow-will place Herman, start bladder retraining, and initiate Flomax. Nursing not able to place Herman as pt very resistant to that intervention. Will hold on Herman, but continue Flomax. Continue with post op pain control and therapy. Blood sugars and pressure stable with current regimen. Lab ordered for tomorrow. 02/20/18 [place] - covering for Dr Lewis Hgb down to 7.0; will type and cross for 1 unit PRBC. With weight trending up give Lasix post-transfusion. DC IVF. Oral intake starting to improve today. Start tracking I/O - if UO does not improve may need to restart IVF. Renal function is stable. Constipation - BM on 02/1802/21/[address] Lewis Hgb 7.4, s/p 1 unit PRBC transfusion yesterday (and 2 units on 02/14). Dressing is reportedly c/d/i without drainage. Check stool for occult blood. Iron level was low at 34 on on 02/11. Platelets also showing downward trend: Hold naproxen & ASA. He is hemodynamically stable. Weight continues to trend up; he is up 6 kg from date of admission. Anemia could be partly dilutional in nature. Unable to calculate I/O d/t urinary incontinence. He is maintaining saturations on room air. CXR yesterday was negative. Electrolytes/renal function stable. 02/22/18 Hgb 7.2, s/p 3 unit PRBC during hospital course and has been treated with IV iron. Oral iron initiated. Hemoccult pending. Anticipate probable need for additional blood tomorrow, type and screen in a.m. Iron level was low at 34 on on 02/11. Hold naproxen & ASA. May be hemolyzing blood previously transfused, bilirubin normal yesterday-Check haptoglobin/LDH with labs tomorrow. Weight down 3 kg from yesterday but remains positive through the hospitalization and hemoglobin down slightly despite negative fluid balance yesterday. Patient describe dysuria yesterday and urinary frequency which he indicated has been present for about 6 months, UA negative. Urine volumes improving since Flomax initiated. Constipation resolved. Limited activity with physical therapy; guardianship pending to permit placement. 02/23/18 Hgb 7.6-slightly improved today, s/p 3 unit PRBC during hospital course and (2 units preceded VAIBHAV) and has been treated with IV iron. Oral iron initiated. Hemoccult pending. Continue iron therapy; no clear evidence of hemolysis thus far. Continue to monitor hemoglobin daily until above 8. Last bowel movement at least 4-5 days ago-MiraLAX/Senokot doses increased; may require milk of magnesia or alternate stimulant. Much more interactive/appropriate responses today. Will discuss with case management tomorrow, may benefit from repeat psychiatric assessment of competency. 02/24/18 Hgb 7.4. Stool for occult blood is pending. B12 also pending. Continue iron. ASA and Naproxen are on hold. Constipation - last BM 02/21 per RN. Will give Dulcolax today if no results. Good oral intake. VSS; hemodynamically stable. 02/25/18 Hgb 7.3. Stool for occult blood is pending (had BM last night but Hemoccult was not sent). B12 low normal at 272 - methylmalonic acid level ordered; initiate oral B-12 supplementation. Haptoglobin pending. Continue iron. ASA and Naproxen are on hold. Continues on Plavix. VSS; hemodynamically stable. Largely asymptomatic in regards to persistent anemia. Weight is up 2 kg over the past 48 hours-Lasix to be given again today. 02/26/18 [place] - Covering for Dr. Lewis Hemoglobin largely stable at 7.5 this am. Pain controlled. Tolerating therapy. Blood pressure and blood sugars stable - continue treatments. Continue with supportive care, support, and therapy. Anticipate Dr Lewis's return tomorrow. 03/01/18 [place] - Covering for Dr. Lewis Medically doing well-BP, sugars, vitals stable. Emotional support for loss of spouse - very difficult transition for him. Continue with supportive care. Plan - 03/02/18: Covering for Dr. Lewis Medically doing well-BP, sugars, vitals stable. Emotional support for loss of spouse - very difficult transition for him. May consider psychiatric consult for acute grief and treatment recommendations. Continue with supportive care. Will recheck labs in AM to monitor blood counts, electrolytes and renal function. Case management assisting with discharge planning. Dr. Lewis to assume care on 03/03/18.
[2018-03-08] MEDS: QUETIAPINE 50 MG TABLET PO SCH (20:57)
[2018-03-08] MEDS: RANITIDINE 150 MG TABLET PO SCH (20:58)
[2018-03-08] MEDS: TAMSULOSIN 0.4 MG CAPSULE PO SCH (20:58)
[2018-03-08] MEDS: SUCRALFATE 1 GM TABLET PO SCH (20:58)
[2018-03-09] MEDS: AMLODIPINE 5 MG TABLET PO SCH (08:40)
[2018-03-09] MEDS: CYANOCOBALAMIN (B-12) 500mcg TABLET PO SCH (08:40)
[2018-03-09] MEDS: CARVEDILOL 6.25 MG TABLET PO SCH ×2 (08:40→17:31)
[2018-03-09] MEDS: ESCITALOPRAM 20 MG TABLET PO SCH (08:40)
[2018-03-09] MEDS: CLOPIDOGREL 75 MG TABLET PO SCH (08:40)
[2018-03-09] MEDS: METFORMIN 1,000 MG TABLET PO SCH ×2 (08:40→17:31)
[2018-03-09] MEDS: SENNA + DOCUSATE TABLET PO SCH ×2 (08:41→20:49)
[2018-03-09] MEDS: ACETAMINOPHEN 325 MG TABLET PO SCH ×4 (08:41→20:48)
[2018-03-09] MEDS: POLYETHYL GLYCOL 3350 17gm PACKET PO SCH ×2 (08:41→20:48)
[2018-03-09] MEDS: FERROUS GLUCONATE 324 MG TABLET PO SCH (08:41)
[2018-03-09] MEDS: SUCRALFATE 1 GM TABLET PO SCH (20:48)
[2018-03-09] MEDS: RANITIDINE 150 MG TABLET PO SCH (20:48)
[2018-03-09] MEDS: QUETIAPINE 50 MG TABLET PO SCH (20:48)
[2018-03-09] MEDS: TAMSULOSIN 0.4 MG CAPSULE PO SCH (20:48)
[2018-03-10] MEDS: SENNA + DOCUSATE TABLET PO SCH ×2 (08:19→20:15)
[2018-03-10] MEDS: POLYETHYL GLYCOL 3350 17gm PACKET PO SCH ×2 (08:19→20:15)
[2018-03-10] MEDS: AMLODIPINE 5 MG TABLET PO SCH (08:36)
[2018-03-10] MEDS: CLOPIDOGREL 75 MG TABLET PO SCH (08:36)
[2018-03-10] MEDS: ESCITALOPRAM 20 MG TABLET PO SCH (08:36)
[2018-03-10] MEDS: CARVEDILOL 6.25 MG TABLET PO SCH ×2 (08:36→17:14)
[2018-03-10] MEDS: FERROUS GLUCONATE 324 MG TABLET PO SCH (08:37)
[2018-03-10] MEDS: ACETAMINOPHEN 325 MG TABLET PO SCH ×4 (08:37→20:16)
[2018-03-10] MEDS: CYANOCOBALAMIN (B-12) 500mcg TABLET PO SCH (08:37)
[2018-03-10] MEDS: METFORMIN 1,000 MG TABLET PO SCH ×2 (08:38→17:14)
[2018-03-10] MEDS: SUCRALFATE 1 GM TABLET PO SCH (20:15)
[2018-03-10] MEDS: TAMSULOSIN 0.4 MG CAPSULE PO SCH (20:16)
[2018-03-10] MEDS: QUETIAPINE 50 MG TABLET PO SCH (20:16)
[2018-03-10] MEDS: RANITIDINE 150 MG TABLET PO SCH (20:16)
[2018-03-11] MEDS: ACETAMINOPHEN 325 MG TABLET PO SCH ×4 (08:57→20:11)
[2018-03-11] MEDS: CARVEDILOL 6.25 MG TABLET PO SCH ×2 (08:57→17:08)
[2018-03-11] MEDS: FERROUS GLUCONATE 324 MG TABLET PO SCH (08:57)
[2018-03-11] MEDS: METFORMIN 1,000 MG TABLET PO SCH ×2 (08:57→17:09)
[2018-03-11] MEDS: AMLODIPINE 5 MG TABLET PO SCH (08:57)
[2018-03-11] MEDS: CYANOCOBALAMIN (B-12) 500mcg TABLET PO SCH (08:58)
[2018-03-11] MEDS: SENNA + DOCUSATE TABLET PO SCH ×2 (08:58→20:10)
[2018-03-11] MEDS: POLYETHYL GLYCOL 3350 17gm PACKET PO SCH ×2 (08:58→20:10)
[2018-03-11] MEDS: ESCITALOPRAM 20 MG TABLET PO SCH (08:58)
[2018-03-11] MEDS: CLOPIDOGREL 75 MG TABLET PO SCH (08:58)
--- NOTE | 2018-03-11 10:28 | Orthopedic Progress Note ---
Date: Date: 03/11/18 Time: 1026 Subjective/Severity of Illness: Jonathan is sitting up this morning in the chair. Denies any complaints or concerns. Denies any pain with right hip. Eager for discharge. CM notes state they left message with APS yesterday for guardianship update. Orthopedic Exam Vital signs: Temperature 95.9 F L 02/05/18 15:57 Pulse Rate 64 02/05/18 15:57 Respiratory Rate 18 02/05/18 15:57 Blood Pressure 149/69 H 02/05/18 15:57 Pulse Oximetry 97 02/05/18 15:57 Vital Signs Temp Pulse Resp BP Pulse Ox 02/16/18 07:34 97.2 F 61 16 165/73 H 96 02/16/18 04:00 97.4 F 59 L 16 164/72 H 92 02/16/18 00:00 97.2 F 65 16 140/71 H 94 02/15/18 20:00 96.7 F L 66 20 106/56 93 02/15/18 16:36 96.6 F L 65 16 144/67 H 95 02/15/18 12:00 96.5 F L 61 16 159/71 H 94 Intake and Output 02/15/18 02/16/18 02/16/18 22:59 06:59 14:59 Intake Total 240 / 240 Output Total 200 / 200 350 / 350 Balance -200 / -200 -350 / -350 240 / 240 Intake: Oral 240 / 240 Output: Urine 200 / 200 350 / 350 Other: Urine Appearance Clear Clear Urine Color Yellow Yellow Stool Color Brown Stool Consistency Soft Size of Bowel Movement Smear # Voids 1 Weight 229 lb 11.547 oz Patient Weight 02/17/18 06:59 Weight 229 lb 11.547 oz - Constitutional General Appearance: Present: alert, no acute distress, well nourished - Respiratory Exam Present: non-labored - Cardiovascular Exam Present: pedal pulses intact - Abdominal Exam Present: soft - Extremities Exam Present: pulses intact - Dressing Dressing: no drainage - Hip Exam right Hip Exam: Present: alignment normal - Integumentary Exam Present: pink, warm, dry - Lymphatic Lymphatic: Absent: lymphedema - Neurological Exam Present: intact to light touch, no deficits - Psychiatric Exam Present: alert - Labs Result Diagrams: 03/08/18 04:49 03/03/18 04:03 H & H 02/14/18 02/14/18 02/14/18 Range/Units 04:09 13:13 17:37 Hgb 8.7 L 9.8 L D 10.6 L (13.5-17.5) GM/DL Hct 27.9 L 31.5 L D (41-53) % 02/14/18 02/16/18 02/18/18 Range/Units 21:43 04:34 03:56 Hgb 10.9 L 10.7 L 10.8 L (13.5-17.5) GM/DL Hct 33.3 L 33.4 L (41-53) % 02/18/18 02/19/18 02/20/18 Range/Units 21:15 04:47 04:18 Hgb 9.3 L D 8.5 L 7.0 L D (13.5-17.5) GM/DL Hct 28.4 L D 26.5 L 21.9 L D (41-53) % 02/20/18 02/21/18 02/22/18 Range/Units 12:49 04:31 04:09 Hgb 7.9 L D 7.4 L 7.2 L (13.5-17.5) GM/DL Hct 23.2 L 22.7 L (41-53) % 02/23/18 02/24/18 02/25/18 Range/Units 03:57 04:12 04:11 Hgb 7.6 L 7.4 L 7.3 L (13.5-17.5) GM/DL Hct 23.6 L 23.0 L 23.2 L (41-53) % 02/26/18 03/03/18 03/08/18 Range/Units 03:58 04:03 04:49 Hgb 7.5 L 7.8 L 9.1 L (13.5-17.5) GM/DL Hct 23.8 L 25.0 L 29.4 L (41-53) % Orthopedic Assessment and Plan (1) Hip dislocation, right Status: Acute Qualifiers: Encounter type: initial encounter Qualified Code(s): S73.004A - Unspecified dislocation of right hip, initial encounter Problem Details: Recurrent, closed reduction in OR 02/04/18, 02/06/18, 02/12/18--> VAIBHAV 02/18/18 Assessment and Plan: Mr Foley was taken to the OR on 02/04/18, 02/06/18 & 02/12/18 for closed reduction of the right hip under anesthesia. 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 Continue hip precautions. Awaiting placement instructions. 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 Gaming Continues to do well from orthopedic standpoint, still awaiting guardianship for placement. Current anti-coagulation protocol- Plavix 75mg daily. ASA 81mg. SCD's for added protection Dr. James managing medically monitoring blood sugars PRN. PT/OT services to improve independent function. - Additional Diagnoses Atrial Fibrillation: rate controlled Diabetes: resume oral medications, other (Has been under good control.) CAD: no active chest pain Anemia: no intervention required Hospital Course Summary Disclaimer: The visit summary below is not to be considered part of the above Progress Note. 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 Psychiatric evaluation suggested that the patient is not competent to make his own medication decisions. Case management is working on obtaining a guardian for the patient for consent to do a hip revision. Patient remains at high risk for recurrent dislocation, especially if transferred to senior living as [facility] nursing staff is well educated on precautions. Continue with current cares. Continue wedge pillow and straight leg immobilizer to minimize risk. Encourage participation in therapies to work with him on precautions and ambulation. Continue with bowel motivation. Recheck labs in AM to monitor blood counts, electrolytes and renal function. 02/16/18 [place] - Covering for Dr Leiws Clinically doing well. Forgetful about hip precautions. Plavix on hold for upcoming surgical procedure. Will start SCD for DVT prevention. Blood pressure and blood sugars stable - continue with current treatment. Encourage participation in therapies to work with him on precautions and ambulation. Patient remains at high risk for recurrent dislocation, especially if transferred to senior living as [facility] nursing staff is well educated on precautions. Anticipate Dr Lewis's return tomorrow. 02/19/18 [place] - Covering for Dr Lewis Will decrease IVF to 50cc/hr - oral drive with decrease. Encourage nursing to give Dulcolax to help with bowel function. Urine output slow-will place Herman, start bladder retraining, and initiate Flomax. Nursing not able to place Herman as pt very resistant to that intervention. Will hold on Herman, but continue Flomax. Continue with post op pain control and therapy. Blood sugars and pressure stable with current regimen. Lab ordered for tomorrow. 02/20/18 [place] - covering for Dr Lewis Hgb down to 7.0; will type and cross for 1 unit PRBC. With weight trending up give Lasix post-transfusion. DC IVF. Oral intake starting to improve today. Start tracking I/O - if UO does not improve may need to restart IVF. Renal function is stable. Constipation - BM on 02/1802/21/[address] Lewis Hgb 7.4, s/p 1 unit PRBC transfusion yesterday (and 2 units on 02/14). Dressing is reportedly c/d/i without drainage. Check stool for occult blood. Iron level was low at 34 on on 02/11. Platelets also showing downward trend: Hold naproxen & ASA. He is hemodynamically stable. Weight continues to trend up; he is up 6 kg from date of admission. Anemia could be partly dilutional in nature. Unable to calculate I/O d/t urinary incontinence. He is maintaining saturations on room air. CXR yesterday was negative. Electrolytes/renal function stable. 02/22/18 Hgb 7.2, s/p 3 unit PRBC during hospital course and has been treated with IV iron. Oral iron initiated. Hemoccult pending. Anticipate probable need for additional blood tomorrow, type and screen in a.m. Iron level was low at 34 on on 02/11. Hold naproxen & ASA. May be hemolyzing blood previously transfused, bilirubin normal yesterday-Check haptoglobin/LDH with labs tomorrow. Weight down 3 kg from yesterday but remains positive through the hospitalization and hemoglobin down slightly despite negative fluid balance yesterday. Patient describe dysuria yesterday and urinary frequency which he indicated has been present for about 6 months, UA negative. Urine volumes improving since Flomax initiated. Constipation resolved. Limited activity with physical therapy; guardianship pending to permit placement. 02/23/18 Hgb 7.6-slightly improved today, s/p 3 unit PRBC during hospital course and (2 units preceded VAIBHAV) and has been treated with IV iron. Oral iron initiated. Hemoccult pending. Continue iron therapy; no clear evidence of hemolysis thus far. Continue to monitor hemoglobin daily until above 8. Last bowel movement at least 4-5 days ago-MiraLAX/Senokot doses increased; may require milk of magnesia or alternate stimulant. Much more interactive/appropriate responses today. Will discuss with case management tomorrow, may benefit from repeat psychiatric assessment of competency. 02/24/18 Hgb 7.4. Stool for occult blood is pending. B12 also pending. Continue iron. ASA and Naproxen are on hold. Constipation - last BM 02/21 per RN. Will give Dulcolax today if no results. Good oral intake. VSS; hemodynamically stable. 02/25/18 Hgb 7.3. Stool for occult blood is pending (had BM last night but Hemoccult was not sent). B12 low normal at 272 - methylmalonic acid level ordered; initiate oral B-12 supplementation. Haptoglobin pending. Continue iron. ASA and Naproxen are on hold. Continues on Plavix. VSS; hemodynamically stable. Largely asymptomatic in regards to persistent anemia. Weight is up 2 kg over the past 48 hours-Lasix to be given again today. 02/26/18 [place] - Covering for Dr. Lewis Hemoglobin largely stable at 7.5 this am. Pain controlled. Tolerating therapy. Blood pressure and blood sugars stable - continue treatments. Continue with supportive care, support, and therapy. Anticipate Dr Lewis's return tomorrow. 03/01/18 [place] - Covering for Dr. Lewis Medically doing well-BP, sugars, vitals stable. Emotional support for loss of spouse - very difficult transition for him. Continue with supportive care. Plan - 03/02/18: Covering for Dr. Lewis Medically doing well-BP, sugars, vitals stable. Emotional support for loss of spouse - very difficult transition for him. May consider psychiatric consult for acute grief and treatment recommendations. Continue with supportive care. Will recheck labs in AM to monitor blood counts, electrolytes and renal function. Case management assisting with discharge planning. Dr. Lewis to assume care on 03/03/18.
[2018-03-11] MEDS: SUCRALFATE 1 GM TABLET PO SCH (20:10)
[2018-03-11] MEDS: QUETIAPINE 50 MG TABLET PO SCH (20:10)
[2018-03-11] MEDS: TAMSULOSIN 0.4 MG CAPSULE PO SCH (20:10)
[2018-03-11] MEDS: RANITIDINE 150 MG TABLET PO SCH (20:10)
[2018-03-12] MEDS: CLOPIDOGREL 75 MG TABLET PO SCH (09:23)
[2018-03-12] MEDS: METFORMIN 1,000 MG TABLET PO SCH ×2 (09:23→17:11)
[2018-03-12] MEDS: AMLODIPINE 5 MG TABLET PO SCH (09:23)
[2018-03-12] MEDS: FERROUS GLUCONATE 324 MG TABLET PO SCH (09:23)
[2018-03-12] MEDS: ACETAMINOPHEN 325 MG TABLET PO SCH ×4 (09:23→21:25)
[2018-03-12] MEDS: ESCITALOPRAM 20 MG TABLET PO SCH (09:23)
[2018-03-12] MEDS: CARVEDILOL 6.25 MG TABLET PO SCH ×2 (09:24→17:11)
[2018-03-12] MEDS: CYANOCOBALAMIN (B-12) 500mcg TABLET PO SCH (09:24)
[2018-03-12] MEDS: POLYETHYL GLYCOL 3350 17gm PACKET PO SCH ×2 (09:26→21:25)
[2018-03-12] MEDS: SENNA + DOCUSATE TABLET PO SCH ×2 (09:26→21:25)
[2018-03-12] MEDS: TAMSULOSIN 0.4 MG CAPSULE PO SCH (21:25)
[2018-03-12] MEDS: SUCRALFATE 1 GM TABLET PO SCH (21:25)
[2018-03-12] MEDS: QUETIAPINE 50 MG TABLET PO SCH (21:25)
[2018-03-12] MEDS: RANITIDINE 150 MG TABLET PO SCH (21:25)
[2018-03-13] MEDS: ACETAMINOPHEN 325 MG TABLET PO SCH ×5 (07:37→23:51)
[2018-03-13] MEDS: AMLODIPINE 5 MG TABLET PO SCH (08:25)
[2018-03-13] MEDS: METFORMIN 1,000 MG TABLET PO SCH ×2 (08:25→17:59)
[2018-03-13] MEDS: CYANOCOBALAMIN (B-12) 500mcg TABLET PO SCH (08:25)
[2018-03-13] MEDS: ESCITALOPRAM 20 MG TABLET PO SCH (08:25)
[2018-03-13] MEDS: CLOPIDOGREL 75 MG TABLET PO SCH (08:25)
[2018-03-13] MEDS: FERROUS GLUCONATE 324 MG TABLET PO SCH (08:26)
[2018-03-13] MEDS: CARVEDILOL 6.25 MG TABLET PO SCH ×2 (08:26→17:59)
[2018-03-13] MEDS: POLYETHYL GLYCOL 3350 17gm PACKET PO SCH ×2 (08:28→20:31)
[2018-03-13] MEDS: SENNA + DOCUSATE TABLET PO SCH ×2 (08:29→20:31)
--- NOTE | 2018-03-13 11:22 | Orthopedic Progress Note ---
Date: Date: 03/13/18 Time: 1120 Subjective/Severity of Illness: Jonathan is doing well. No complaints or concerns. Still no response from APS on guardianship update per CM notes. Exam - Constitutional Vital Signs: Temperature 98.3 F 03/13/18 07:19 Pulse Rate 70 03/13/18 07:19 Respiratory Rate 16 03/13/18 07:19 Blood Pressure 142/66 H 03/13/18 07:19 Pulse Oximetry 94 03/13/18 07:19 General: cooperative, healthy appearing, no acute distress, well developed, well groomed Nutritional Appearance: well nourished Orientation: alert, oriented x3 - RLE Postoperative Appearance: extremity compartments are soft and nontender, neurovascullary intact to extremities - Respiratory Respiratory Exam: non-labored - Cardiac Cardiovascular exam: pedal pulses intact - Abdominal GI/Abdominal Exam: soft - Labs Result Diagrams: 03/08/18 04:49 03/03/18 04:03 H & H 02/14/18 02/14/18 02/14/18 Range/Units 04:09 13:13 17:37 Hgb 8.7 L 9.8 L D 10.6 L (13.5-17.5) GM/DL Hct 27.9 L 31.5 L D (41-53) % 02/14/18 02/16/18 02/18/18 Range/Units 21:43 04:34 03:56 Hgb 10.9 L 10.7 L 10.8 L (13.5-17.5) GM/DL Hct 33.3 L 33.4 L (41-53) % 02/18/18 02/19/18 02/20/18 Range/Units 21:15 04:47 04:18 Hgb 9.3 L D 8.5 L 7.0 L D (13.5-17.5) GM/DL Hct 28.4 L D 26.5 L 21.9 L D (41-53) % 02/20/18 02/21/18 02/22/18 Range/Units 12:49 04:31 04:09 Hgb 7.9 L D 7.4 L 7.2 L (13.5-17.5) GM/DL Hct 23.2 L 22.7 L (41-53) % 05/02/24/18 02/25/18 Range/Units 03:57 04:12 04:11 Hgb 7.6 L 7.4 L 7.3 L (13.5-17.5) GM/DL Hct 23.6 L 23.0 L 23.2 L (41-53) % 02/26/18 03/03/18 03/08/18 Range/Units 03:58 04:03 04:49 Hgb 7.5 L 7.8 L 9.1 L (13.5-17.5) GM/DL Hct 23.8 L 25.0 L 29.4 L (41-53) % Orthopedic Assessment and Plan (1) Hip dislocation, right Status: Acute Qualifiers: Encounter type: initial encounter Qualified Code(s): S73.004A - Unspecified dislocation of right hip, initial encounter Problem Details: Recurrent, closed reduction in OR 02/04/18, 02/06/18, 02/12/18--> VAIBHAV 02/18/18 Assessment and Plan: Mr Foley was taken to the OR on 02/04/18, 02/06/18 & 02/12/18 for closed reduction of the right hip under anesthesia. 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 Continue hip precautions. Awaiting placement instructions. 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 Gaming Continues to do well from orthopedic standpoint, still awaiting guardianship for placement. Current anti-coagulation protocol- Plavix 75mg daily. ASA 81mg. SCD's for added protection Dr. James managing medically monitoring blood sugars PRN. PT/OT services to improve independent function. - Additional Diagnoses Atrial Fibrillation: rate controlled Diabetes: resume oral medications, other (Has been under good control.) CAD: no active chest pain Anemia: no intervention required Hospital Course Summary Disclaimer: The visit summary below is not to be considered part of the above Progress Note. 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 Psychiatric evaluation suggested that the patient is not competent to make his own medication decisions. Case management is working on obtaining a guardian for the patient for consent to do a hip revision. Patient remains at high risk for recurrent dislocation, especially if transferred to snf as [facility] nursing staff is well educated on precautions. Continue with current cares. Continue wedge pillow and straight leg immobilizer to minimize risk. Encourage participation in therapies to work with him on precautions and ambulation. Continue with bowel motivation. Recheck labs in AM to monitor blood counts, electrolytes and renal function. 02/16/18 [place] - Covering for Dr Lewis Clinically doing well. Forgetful about hip precautions. Plavix on hold for upcoming surgical procedure. Will start SCD for DVT prevention. Blood pressure and blood sugars stable - continue with current treatment. Encourage participation in therapies to work with him on precautions and ambulation. Patient remains at high risk for recurrent dislocation, especially if transferred to snf as [facility] nursing staff is well educated on precautions. Anticipate Dr Lewis's return tomorrow. 02/19/18 [place] - Covering for Dr Lewis Will decrease IVF to 50cc/hr - oral drive with decrease. Encourage nursing to give Dulcolax to help with bowel function. Urine output slow-will place Herman, start bladder retraining, and initiate Flomax. Nursing not able to place Herman as pt very resistant to that intervention. Will hold on Herman, but continue Flomax. Continue with post op pain control and therapy. Blood sugars and pressure stable with current regimen. Lab ordered for tomorrow. 02/20/18 [place] - covering for Dr Lewis Hgb down to 7.0; will type and cross for 1 unit PRBC. With weight trending up give Lasix post-transfusion. DC IVF. Oral intake starting to improve today. Start tracking I/O - if UO does not improve may need to restart IVF. Renal function is stable. Constipation - BM on 02/1802/21/[address] Lewis Hgb 7.4, s/p 1 unit PRBC transfusion yesterday (and 2 units on 02/14). Dressing is reportedly c/d/i without drainage. Check stool for occult blood. Iron level was low at 34 on on 02/11. Platelets also showing downward trend: Hold naproxen & ASA. He is hemodynamically stable. Weight continues to trend up; he is up 6 kg from date of admission. Anemia could be partly dilutional in nature. Unable to calculate I/O d/t urinary incontinence. He is maintaining saturations on room air. CXR yesterday was negative. Electrolytes/renal function stable. 02/22/18 Hgb 7.2, s/p 3 unit PRBC during hospital course and has been treated with IV iron. Oral iron initiated. Hemoccult pending. Anticipate probable need for additional blood tomorrow, type and screen in a.m. Iron level was low at 34 on on 02/11. Hold naproxen & ASA. May be hemolyzing blood previously transfused, bilirubin normal yesterday-Check haptoglobin/LDH with labs tomorrow. Weight down 3 kg from yesterday but remains positive through the hospitalization and hemoglobin down slightly despite negative fluid balance yesterday. Patient describe dysuria yesterday and urinary frequency which he indicated has been present for about 6 months, UA negative. Urine volumes improving since Flomax initiated. Constipation resolved. Limited activity with physical therapy; guardianship pending to permit placement. 02/23/18 Hgb 7.6-slightly improved today, s/p 3 unit PRBC during hospital course and (2 units preceded VAIBHAV) and has been treated with IV iron. Oral iron initiated. Hemoccult pending. Continue iron therapy; no clear evidence of hemolysis thus far. Continue to monitor hemoglobin daily until above 8. Last bowel movement at least 4-5 days ago-MiraLAX/Senokot doses increased; may require milk of magnesia or alternate stimulant. Much more interactive/appropriate responses today. Will discuss with case management tomorrow, may benefit from repeat psychiatric assessment of competency. 02/24/18 Hgb 7.4. Stool for occult blood is pending. B12 also pending. Continue iron. ASA and Naproxen are on hold. Constipation - last BM 02/21 per RN. Will give Dulcolax today if no results. Good oral intake. VSS; hemodynamically stable. 02/25/18 Hgb 7.3. Stool for occult blood is pending (had BM last night but Hemoccult was not sent). B12 low normal at 272 - methylmalonic acid level ordered; initiate oral B-12 supplementation. Haptoglobin pending. Continue iron. ASA and Naproxen are on hold. Continues on Plavix. VSS; hemodynamically stable. Largely asymptomatic in regards to persistent anemia. Weight is up 2 kg over the past 48 hours-Lasix to be given again today. 02/26/18 [place] - Covering for Dr. Lewis Hemoglobin largely stable at 7.5 this am. Pain controlled. Tolerating therapy. Blood pressure and blood sugars stable - continue treatments. Continue with supportive care, support, and therapy. Anticipate Dr Lewis's return tomorrow. 03/01/18 [place] - Covering for Dr. Lewis Medically doing well-BP, sugars, vitals stable. Emotional support for loss of spouse - very difficult transition for him. Continue with supportive care. Plan - 03/02/18: Covering for Dr. Lewis Medically doing well-BP, sugars, vitals stable. Emotional support for loss of spouse - very difficult transition for him. May consider psychiatric consult for acute grief and treatment recommendations. Continue with supportive care. Will recheck labs in AM to monitor blood counts, electrolytes and renal function. Case management assisting with discharge planning. Dr. Lewis to assume care on 03/03/18.
[2018-03-13] MEDS: SUCRALFATE 1 GM TABLET PO SCH (20:32)
[2018-03-13] MEDS: RANITIDINE 150 MG TABLET PO SCH (20:32)
[2018-03-13] MEDS: TAMSULOSIN 0.4 MG CAPSULE PO SCH (20:32)
[2018-03-13] MEDS: QUETIAPINE 50 MG TABLET PO SCH (20:32)
[2018-03-14] MEDS: ACETAMINOPHEN 325 MG TABLET PO SCH ×4 (08:43→21:15)
[2018-03-14] MEDS: METFORMIN 1,000 MG TABLET PO SCH ×2 (08:44→17:14)
[2018-03-14] MEDS: CARVEDILOL 6.25 MG TABLET PO SCH ×2 (08:44→17:14)
[2018-03-14] MEDS: ESCITALOPRAM 20 MG TABLET PO SCH (08:44)
[2018-03-14] MEDS: FERROUS GLUCONATE 324 MG TABLET PO SCH (08:44)
[2018-03-14] MEDS: CYANOCOBALAMIN (B-12) 500mcg TABLET PO SCH (08:44)
[2018-03-14] MEDS: CLOPIDOGREL 75 MG TABLET PO SCH (08:44)
[2018-03-14] MEDS: AMLODIPINE 5 MG TABLET PO SCH (08:44)
[2018-03-14] MEDS: SENNA + DOCUSATE TABLET PO SCH ×2 (08:48→21:16)
[2018-03-14] MEDS: POLYETHYL GLYCOL 3350 17gm PACKET PO SCH ×2 (08:48→21:15)
[2018-03-14] MEDS: QUETIAPINE 50 MG TABLET PO SCH (21:16)
[2018-03-14] MEDS: SUCRALFATE 1 GM TABLET PO SCH (21:16)
[2018-03-14] MEDS: TAMSULOSIN 0.4 MG CAPSULE PO SCH (21:16)
[2018-03-14] MEDS: RANITIDINE 150 MG TABLET PO SCH (21:16)
[2018-03-15] MEDS: METFORMIN 1,000 MG TABLET PO SCH ×2 (08:26→17:17)
[2018-03-15] MEDS: FERROUS GLUCONATE 324 MG TABLET PO SCH (08:26)
[2018-03-15] MEDS: AMLODIPINE 5 MG TABLET PO SCH (08:26)
[2018-03-15] MEDS: CLOPIDOGREL 75 MG TABLET PO SCH (08:26)
[2018-03-15] MEDS: CYANOCOBALAMIN (B-12) 500mcg TABLET PO SCH (08:26)
[2018-03-15] MEDS: CARVEDILOL 6.25 MG TABLET PO SCH ×2 (08:26→17:18)
[2018-03-15] MEDS: ESCITALOPRAM 20 MG TABLET PO SCH (08:26)
[2018-03-15] MEDS: SENNA + DOCUSATE TABLET PO SCH ×2 (08:29→21:38)
[2018-03-15] MEDS: POLYETHYL GLYCOL 3350 17gm PACKET PO SCH ×2 (08:29→21:38)
[2018-03-15] MEDS: ACETAMINOPHEN 325 MG TABLET PO SCH ×4 (08:38→21:37)
[2018-03-15] MEDS: QUETIAPINE 50 MG TABLET PO SCH (21:38)
[2018-03-15] MEDS: TAMSULOSIN 0.4 MG CAPSULE PO SCH (21:38)
[2018-03-15] MEDS: RANITIDINE 150 MG TABLET PO SCH (21:38)
[2018-03-15] MEDS: SUCRALFATE 1 GM TABLET PO SCH (21:38)
[2018-03-15] MEDS ORDERED: FALL RISK - PHARMACY CONSULT MC ONE (22:37)
[2018-03-16] MEDS: METFORMIN 1,000 MG TABLET PO SCH ×2 (08:01→17:29)
[2018-03-16] MEDS: ACETAMINOPHEN 325 MG TABLET PO SCH ×4 (08:01→20:05)
[2018-03-16] MEDS: CARVEDILOL 6.25 MG TABLET PO SCH ×2 (08:01→17:29)
[2018-03-16] MEDS: CYANOCOBALAMIN (B-12) 500mcg TABLET PO SCH (08:01)
[2018-03-16] MEDS: CLOPIDOGREL 75 MG TABLET PO SCH (08:01)
[2018-03-16] MEDS: AMLODIPINE 5 MG TABLET PO SCH (08:01)
[2018-03-16] MEDS: FERROUS GLUCONATE 324 MG TABLET PO SCH (08:01)
[2018-03-16] MEDS: ESCITALOPRAM 20 MG TABLET PO SCH (08:01)
[2018-03-16] MEDS: POLYETHYL GLYCOL 3350 17gm PACKET PO SCH ×2 (08:02→20:05)
[2018-03-16] MEDS: SENNA + DOCUSATE TABLET PO SCH ×2 (08:02→20:05)
[2018-03-16] MEDS: TAMSULOSIN 0.4 MG CAPSULE PO SCH (20:05)
[2018-03-16] MEDS: RANITIDINE 150 MG TABLET PO SCH (20:05)
[2018-03-16] MEDS: QUETIAPINE 50 MG TABLET PO SCH (20:05)
[2018-03-16] MEDS: SUCRALFATE 1 GM TABLET PO SCH (20:06)
--- NOTE | 2018-03-17 08:13 | Orthopedic Progress Note ---
Date: Date: 03/17/18 Time: 811 Subjective/Severity of Illness: Jonathan is doing well. He is not painful. Walking good distances. Sleeps okay. No specific complaints. Orthopedic Exam Vital signs: Temperature 95.9 F L 02/05/18 15:57 Pulse Rate 64 02/05/18 15:57 Respiratory Rate 18 02/05/18 15:57 Blood Pressure 149/69 H 02/05/18 15:57 Pulse Oximetry 97 02/05/18 15:57 Vital Signs Temp Pulse Resp BP Pulse Ox 02/16/18 07:34 97.2 F 61 16 165/73 H 96 02/16/18 04:00 97.4 F 59 L 16 164/72 H 92 02/16/18 00:00 97.2 F 65 16 140/71 H 94 02/15/18 20:00 96.7 F L 66 20 106/56 93 02/15/18 16:36 96.6 F L 65 16 144/67 H 95 02/15/18 12:00 96.5 F L 61 16 159/71 H 94 Intake and Output 02/15/18 02/16/18 02/16/18 22:59 06:59 14:59 Intake Total 240 / 240 Output Total 200 / 200 350 / 350 Balance -200 / -200 -350 / -350 240 / 240 Intake: Oral 240 / 240 Output: Urine 200 / 200 350 / 350 Other: Urine Appearance Clear Clear Urine Color Yellow Yellow Stool Color Brown Stool Consistency Soft Size of Bowel Movement Smear # Voids 1 Weight 229 lb 11.547 oz Patient Weight 02/17/18 06:59 Weight 229 lb 11.547 oz - Constitutional General Appearance: Present: alert, no acute distress, well developed, well nourished - Respiratory Exam Present: non-labored - Cardiovascular Exam Present: pedal pulses intact - Abdominal Exam Present: soft - Extremities Exam Present: pulses intact - Dressing Dressing: no drainage - Hip Exam right Hip Exam: Present: alignment normal - Integumentary Exam Present: pink, warm, dry - Neurological Exam Present: intact to light touch, no deficits - Psychiatric Exam Present: alert - Labs Result Diagrams: 03/08/18 04:49 03/03/18 04:03 H & H 02/14/18 02/14/18 02/14/18 Range/Units 04:09 13:13 17:37 Hgb 8.7 L 9.8 L D 10.6 L (13.5-17.5) GM/DL Hct 27.9 L 31.5 L D (41-53) % 02/14/18 02/16/18 02/18/18 Range/Units 21:43 04:34 03:56 Hgb 10.9 L 10.7 L 10.8 L (13.5-17.5) GM/DL Hct 33.3 L 33.4 L (41-53) % 02/18/18 02/19/18 02/20/18 Range/Units 21:15 04:47 04:18 Hgb 9.3 L D 8.5 L 7.0 L D (13.5-17.5) GM/DL Hct 28.4 L D 26.5 L 21.9 L D (41-53) % 02/20/18 02/21/18 02/22/18 Range/Units 12:49 04:31 04:09 Hgb 7.9 L D 7.4 L 7.2 L (13.5-17.5) GM/DL Hct 23.2 L 22.7 L (41-53) % 02/23/18 02/24/18 02/25/18 Range/Units 03:57 04:12 04:11 Hgb 7.6 L 7.4 L 7.3 L (13.5-17.5) GM/DL Hct 23.6 L 23.0 L 23.2 L (41-53) % 02/26/18 03/03/18 03/08/18 Range/Units 03:58 04:03 04:49 Hgb 7.5 L 7.8 L 9.1 L (13.5-17.5) GM/DL Hct 23.8 L 25.0 L 29.4 L (41-53) % Orthopedic Assessment and Plan (1) Hip dislocation, right Status: Acute Qualifiers: Encounter type: initial encounter Qualified Code(s): S73.004A - Unspecified dislocation of right hip, initial encounter Problem Details: Recurrent, closed reduction in OR 02/04/18, 02/06/18, 02/12/18--> VAIBHAV 02/18/18 Assessment and Plan: Mr Foley was taken to the OR on 02/04/18, 02/06/18 & 02/12/18 for closed reduction of the right hip under anesthesia. 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 Continue hip precautions. Awaiting placement instructions. 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 Gaming Continues to do well from orthopedic standpoint, still awaiting guardianship for placement. Current anti-coagulation protocol- Plavix 75mg daily. ASA 81mg. SCD's for added protection Dr. James managing medically monitoring blood sugars PRN. PT/OT services to improve independent function. - Additional Diagnoses Atrial Fibrillation: rate controlled Diabetes: resume oral medications, other (Has been under good control.) CAD: no active chest pain Anemia: no intervention required Hospital Course Summary Disclaimer: The visit summary below is not to be considered part of the above Progress Note. 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 Psychiatric evaluation suggested that the patient is not competent to make his own medication decisions. Case management is working on obtaining a guardian for the patient for consent to do a hip revision. Patient remains at high risk for recurrent dislocation, especially if transferred to intermediate as [facility] nursing staff is well educated on precautions. Continue with current cares. Continue wedge pillow and straight leg immobilizer to minimize risk. Encourage participation in therapies to work with him on precautions and ambulation. Continue with bowel motivation. Recheck labs in AM to monitor blood counts, electrolytes and renal function. 02/16/18 [place] - Covering for Dr Lewis Clinically doing well. Forgetful about hip precautions. Plavix on hold for upcoming surgical procedure. Will start SCD for DVT prevention. Blood pressure and blood sugars stable - continue with current treatment. Encourage participation in therapies to work with him on precautions and ambulation. Patient remains at high risk for recurrent dislocation, especially if transferred to intermediate as [facility] nursing staff is well educated on precautions. Anticipate Dr Lewis's return tomorrow. 02/19/18 [place] - Covering for Dr Lewis Will decrease IVF to 50cc/hr - oral drive with decrease. Encourage nursing to give Dulcolax to help with bowel function. Urine output slow-will place Ehrman, start bladder retraining, and initiate Flomax. Nursing not able to place Herman as pt very resistant to that intervention. Will hold on Herman, but continue Flomax. Continue with post op pain control and therapy. Blood sugars and pressure stable with current regimen. Lab ordered for tomorrow. 02/20/18 [place] - covering for Dr Lewis Hgb down to 7.0; will type and cross for 1 unit PRBC. With weight trending up give Lasix post-transfusion. DC IVF. Oral intake starting to improve today. Start tracking I/O - if UO does not improve may need to restart IVF. Renal function is stable. Constipation - BM on 02/1802/21/[address] Lewis Hgb 7.4, s/p 1 unit PRBC transfusion yesterday (and 2 units on 02/14). Dressing is reportedly c/d/i without drainage. Check stool for occult blood. Iron level was low at 34 on on 02/11. Platelets also showing downward trend: Hold naproxen & ASA. He is hemodynamically stable. Weight continues to trend up; he is up 6 kg from date of admission. Anemia could be partly dilutional in nature. Unable to calculate I/O d/t urinary incontinence. He is maintaining saturations on room air. CXR yesterday was negative. Electrolytes/renal function stable. 02/22/18 Hgb 7.2, s/p 3 unit PRBC during hospital course and has been treated with IV iron. Oral iron initiated. Hemoccult pending. Anticipate probable need for additional blood tomorrow, type and screen in a.m. Iron level was low at 34 on on 02/11. Hold naproxen & ASA. May be hemolyzing blood previously transfused, bilirubin normal yesterday-Check haptoglobin/LDH with labs tomorrow. Weight down 3 kg from yesterday but remains positive through the hospitalization and hemoglobin down slightly despite negative fluid balance yesterday. Patient describe dysuria yesterday and urinary frequency which he indicated has been present for about 6 months, UA negative. Urine volumes improving since Flomax initiated. Constipation resolved. Limited activity with physical therapy; guardianship pending to permit placement. 02/23/18 Hgb 7.6-slightly improved today, s/p 3 unit PRBC during hospital course and (2 units preceded VAIBHAV) and has been treated with IV iron. Oral iron initiated. Hemoccult pending. Continue iron therapy; no clear evidence of hemolysis thus far. Continue to monitor hemoglobin daily until above 8. Last bowel movement at least 4-5 days ago-MiraLAX/Senokot doses increased; may require milk of magnesia or alternate stimulant. Much more interactive/appropriate responses today. Will discuss with case management tomorrow, may benefit from repeat psychiatric assessment of competency. 02/24/18 Hgb 7.4. Stool for occult blood is pending. B12 also pending. Continue iron. ASA and Naproxen are on hold. Constipation - last BM 02/21 per RN. Will give Dulcolax today if no results. Good oral intake. VSS; hemodynamically stable. 02/25/18 Hgb 7.3. Stool for occult blood is pending (had BM last night but Hemoccult was not sent). B12 low normal at 272 - methylmalonic acid level ordered; initiate oral B-12 supplementation. Haptoglobin pending. Continue iron. ASA and Naproxen are on hold. Continues on Plavix. VSS; hemodynamically stable. Largely asymptomatic in regards to persistent anemia. Weight is up 2 kg over the past 48 hours-Lasix to be given again today. 02/26/18 [place] - Covering for Dr. Lewis Hemoglobin largely stable at 7.5 this am. Pain controlled. Tolerating therapy. Blood pressure and blood sugars stable - continue treatments. Continue with supportive care, support, and therapy. Anticipate Dr Lewis's return tomorrow. 03/01/18 [place] - Covering for Dr. Lewis Medically doing well-BP, sugars, vitals stable. Emotional support for loss of spouse - very difficult transition for him. Continue with supportive care. Plan - 03/02/18: Covering for Dr. Lewis Medically doing well-BP, sugars, vitals stable. Emotional support for loss of spouse - very difficult transition for him. May consider psychiatric consult for acute grief and treatment recommendations. Continue with supportive care. Will recheck labs in AM to monitor blood counts, electrolytes and renal function. Case management assisting with discharge planning. Dr. Lewis to assume care on 03/03/18.
[2018-03-17] MEDS: CARVEDILOL 6.25 MG TABLET PO SCH ×2 (08:19→17:43)
[2018-03-17] MEDS: AMLODIPINE 5 MG TABLET PO SCH (08:20)
[2018-03-17] MEDS: FERROUS GLUCONATE 324 MG TABLET PO SCH (08:20)
[2018-03-17] MEDS: ACETAMINOPHEN 325 MG TABLET PO SCH ×4 (08:20→21:10)
[2018-03-17] MEDS: CYANOCOBALAMIN (B-12) 500mcg TABLET PO SCH (08:20)
[2018-03-17] MEDS: POLYETHYL GLYCOL 3350 17gm PACKET PO SCH ×2 (08:21→21:11)
[2018-03-17] MEDS: ESCITALOPRAM 20 MG TABLET PO SCH (08:21)
[2018-03-17] MEDS: METFORMIN 1,000 MG TABLET PO SCH ×2 (08:21→17:57)
[2018-03-17] MEDS: SENNA + DOCUSATE TABLET PO SCH ×2 (08:21→21:11)
[2018-03-17] MEDS: CLOPIDOGREL 75 MG TABLET PO SCH (08:21)
[2018-03-17] MEDS: RANITIDINE 150 MG TABLET PO SCH (21:10)
[2018-03-17] MEDS: QUETIAPINE 50 MG TABLET PO SCH (21:10)
[2018-03-17] MEDS: SUCRALFATE 1 GM TABLET PO SCH (21:10)
[2018-03-17] MEDS: TAMSULOSIN 0.4 MG CAPSULE PO SCH (21:10)
[2018-03-18] MEDS: CARVEDILOL 6.25 MG TABLET PO SCH ×2 (07:46→17:45)
[2018-03-18] MEDS: METFORMIN 1,000 MG TABLET PO SCH ×2 (07:46→17:46)
[2018-03-18] MEDS: FERROUS GLUCONATE 324 MG TABLET PO SCH (07:46)
[2018-03-18] MEDS: SENNA + DOCUSATE TABLET PO SCH ×2 (08:23→21:02)
[2018-03-18] MEDS: ACETAMINOPHEN 325 MG TABLET PO SCH ×4 (08:23→21:01)
[2018-03-18] MEDS: CLOPIDOGREL 75 MG TABLET PO SCH (08:23)
[2018-03-18] MEDS: AMLODIPINE 5 MG TABLET PO SCH (08:23)
[2018-03-18] MEDS: ESCITALOPRAM 20 MG TABLET PO SCH (08:23)
[2018-03-18] MEDS: POLYETHYL GLYCOL 3350 17gm PACKET PO SCH ×2 (08:23→21:02)
[2018-03-18] MEDS: CYANOCOBALAMIN (B-12) 500mcg TABLET PO SCH (08:23)
--- NOTE | 2018-03-18 15:21 | Wound Care Progress Note ---
Wound Management - Patient Status Premedicated Prior to Dressing Change: No - Wound Right Heel Wound Type: Pressure Injury Wound Present on Admission?: Yes Wound Staging: Stage II Length: 2.8 Width: 4 Depth: 0.1 Wound Bed Appearance: Beefy Red Tunneling: No Undermining: No Drainage Description: Sanguineous Drainage Amount: Small Drainage Odor: No Odor Dressing Status: Changed Primary Dressing: Silver Dressing Secondary Dressing: Foam Dressing Dressing Change Date: 03/18/18 Dressing Change Time: 15:20
[2018-03-18] MEDS: QUETIAPINE 50 MG TABLET PO SCH (21:02)
[2018-03-18] MEDS: RANITIDINE 150 MG TABLET PO SCH (21:02)
[2018-03-18] MEDS: SUCRALFATE 1 GM TABLET PO SCH (21:02)
[2018-03-18] MEDS: TAMSULOSIN 0.4 MG CAPSULE PO SCH (21:02)
[2018-03-19] MEDS: METFORMIN 1,000 MG TABLET PO SCH ×2 (08:49→16:58)
[2018-03-19] MEDS: FERROUS GLUCONATE 324 MG TABLET PO SCH (08:49)
[2018-03-19] MEDS: ACETAMINOPHEN 325 MG TABLET PO SCH ×4 (08:49→21:21)
[2018-03-19] MEDS: ESCITALOPRAM 20 MG TABLET PO SCH (08:49)
[2018-03-19] MEDS: CLOPIDOGREL 75 MG TABLET PO SCH (08:49)
[2018-03-19] MEDS: CARVEDILOL 6.25 MG TABLET PO SCH ×2 (08:49→16:58)
[2018-03-19] MEDS: CYANOCOBALAMIN (B-12) 500mcg TABLET PO SCH (08:50)
[2018-03-19] MEDS: SENNA + DOCUSATE TABLET PO SCH ×2 (08:51→21:22)
[2018-03-19] MEDS: AMLODIPINE 5 MG TABLET PO SCH (08:51)
[2018-03-19] MEDS: POLYETHYL GLYCOL 3350 17gm PACKET PO SCH ×2 (08:51→21:22)
[2018-03-19] MEDS: RANITIDINE 150 MG TABLET PO SCH (21:21)
[2018-03-19] MEDS: TAMSULOSIN 0.4 MG CAPSULE PO SCH (21:22)
[2018-03-19] MEDS: QUETIAPINE 50 MG TABLET PO SCH (21:22)
[2018-03-19] MEDS: SUCRALFATE 1 GM TABLET PO SCH (21:22)
[2018-03-20] MEDS: AMLODIPINE 5 MG TABLET PO SCH (08:43)
[2018-03-20] MEDS: FERROUS GLUCONATE 324 MG TABLET PO SCH (08:43)
[2018-03-20] MEDS: CARVEDILOL 6.25 MG TABLET PO SCH ×2 (08:43→16:51)
[2018-03-20] MEDS: ESCITALOPRAM 20 MG TABLET PO SCH (08:43)
[2018-03-20] MEDS: CYANOCOBALAMIN (B-12) 500mcg TABLET PO SCH (08:43)
[2018-03-20] MEDS: CLOPIDOGREL 75 MG TABLET PO SCH (08:43)
[2018-03-20] MEDS: METFORMIN 1,000 MG TABLET PO SCH ×2 (08:44→16:51)
[2018-03-20] MEDS: ACETAMINOPHEN 325 MG TABLET PO SCH ×4 (08:44→20:19)
[2018-03-20] MEDS: SENNA + DOCUSATE TABLET PO SCH ×2 (08:45→20:19)
[2018-03-20] MEDS: POLYETHYL GLYCOL 3350 17gm PACKET PO SCH ×2 (08:45→20:19)
--- NOTE | 2018-03-20 12:13 | Orthopedic Progress Note ---
Date: Date: 03/20/18 Time: 1208 Subjective/Severity of Illness: Jonathan expresses his frustrations waiting on state to appoint guardianship. No new concerns or complaints. Doing well otherwise. Exam - Constitutional Vital Signs: Temperature 97.6 F 03/20/18 07:19 Pulse Rate 64 03/20/18 07:19 Respiratory Rate 14 03/20/18 07:19 Blood Pressure 136/61 03/20/18 07:19 Pulse Oximetry 96 03/20/18 07:19 General: cooperative, healthy appearing, no acute distress, well developed, well groomed Nutritional Appearance: well nourished Orientation: alert, oriented x3 - RLE Postoperative Appearance: extremity compartments are soft and nontender, neurovascullary intact to extremities - Respiratory Respiratory Exam: non-labored - Cardiac Cardiovascular exam: pedal pulses intact - Abdominal GI/Abdominal Exam: soft - Wound Right Heel Wound Bed Appearance: Beefy Red - Labs Result Diagrams: 03/08/18 04:49 03/03/18 04:03 H & H 02/14/18 02/14/18 02/14/18 Range/Units 04:09 13:13 17:37 Hgb 8.7 L 9.8 L D 10.6 L (13.5-17.5) GM/DL Hct 27.9 L 31.5 L D (41-53) % 02/14/18 02/16/18 02/18/18 Range/Units 21:43 04:34 03:56 Hgb 10.9 L 10.7 L 10.8 L (13.5-17.5) GM/DL Hct 33.3 L 33.4 L (41-53) % 02/18/18 02/19/18 02/20/18 Range/Units 21:15 04:47 04:18 Hgb 9.3 L D 8.5 L 7.0 L D (13.5-17.5) GM/DL Hct 28.4 L D 26.5 L 21.9 L D (41-53) % 02/20/18 02/21/18 02/22/18 Range/Units 12:49 04:31 04:09 Hgb 7.9 L D 7.4 L 7.2 L (13.5-17.5) GM/DL Hct 23.2 L 22.7 L (41-53) % 02/23/18 02/24/18 02/25/18 Range/Units 03:57 04:12 04:11 Hgb 7.6 L 7.4 L 7.3 L (13.5-17.5) GM/DL Hct 23.6 L 23.0 L 23.2 L (41-53) % 02/26/18 03/03/18 03/08/18 Range/Units 03:58 04:03 04:49 Hgb 7.5 L 7.8 L 9.1 L (13.5-17.5) GM/DL Hct 23.8 L 25.0 L 29.4 L (41-53) % Orthopedic Assessment and Plan (1) Hip dislocation, right Status: Acute Qualifiers: Encounter type: initial encounter Qualified Code(s): S73.004A - Unspecified dislocation of right hip, initial encounter Problem Details: Recurrent, closed reduction in OR 02/04/18, 02/06/18, 02/12/18--> VAIBHAV 02/18/18 Assessment and Plan: Mr Foley was taken to the OR on 02/04/18, 02/06/18 & 02/12/18 for closed reduction of the right hip under anesthesia. 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 Continue hip precautions. Awaiting placement instructions. 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 Gaming Guardianship still pending, see CM notes for details. Wound consult- for pressure ulcers on heels. Current anti-coagulation protocol- Plavix 75mg daily. ASA 81mg. SCD's for added protection Dr. James managing medically. monitoring blood sugars PRN. PT/OT services to improve independent function. - Additional Diagnoses Atrial Fibrillation: rate controlled Diabetes: resume oral medications, other (Has been under good control.) CAD: no active chest pain Anemia: no intervention required Hospital Course Summary Disclaimer: The visit summary below is not to be considered part of the above Progress Note. 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 Psychiatric evaluation suggested that the patient is not competent to make his own medication decisions. Case management is working on obtaining a guardian for the patient for consent to do a hip revision. Patient remains at high risk for recurrent dislocation, especially if transferred to halfway as [facility] [place] staff is well educated on precautions. Continue with current cares. Continue wedge pillow and straight leg immobilizer to minimize risk. Encourage participation in therapies to work with him on precautions and ambulation. Continue with bowel motivation. Recheck labs in AM to monitor blood counts, electrolytes and renal function. 02/16/18 [place] - Covering for Dr Lewis Clinically doing well. Forgetful about hip precautions. Plavix on hold for upcoming surgical procedure. Will start SCD for DVT prevention. Blood pressure and blood sugars stable - continue with current treatment. Encourage participation in therapies to work with him on precautions and ambulation. Patient remains at high risk for recurrent dislocation, especially if transferred to halfway as [facility] nursing staff is well educated on precautions. Anticipate Dr Lewis's return tomorrow. 02/19/18 [place] - Covering for Dr Lewis Will decrease IVF to 50cc/hr - oral drive with decrease. Encourage nursing to give Dulcolax to help with bowel function. Urine output slow-will place Herman, start bladder retraining, and initiate Flomax. Nursing not able to place Herman as pt very resistant to that intervention. Will hold on Herman, but continue Flomax. Continue with post op pain control and therapy. Blood sugars and pressure stable with current regimen. Lab ordered for tomorrow. 02/20/18 [place] - covering for Dr Lewis Hgb down to 7.0; will type and cross for 1 unit PRBC. With weight trending up give Lasix post-transfusion. DC IVF. Oral intake starting to improve today. Start tracking I/O - if UO does not improve may need to restart IVF. Renal function is stable. Constipation - BM on 02/1802/21/[address] Lewis Hgb 7.4, s/p 1 unit PRBC transfusion yesterday (and 2 units on 02/14). Dressing is reportedly c/d/i without drainage. Check stool for occult blood. Iron level was low at 34 on on 02/11. Platelets also showing downward trend: Hold naproxen & ASA. He is hemodynamically stable. Weight continues to trend up; he is up 6 kg from date of admission. Anemia could be partly dilutional in nature. Unable to calculate I/O d/t urinary incontinence. He is maintaining saturations on room air. CXR yesterday was negative. Electrolytes/renal function stable. 02/22/18 Hgb 7.2, s/p 3 unit PRBC during hospital course and has been treated with IV iron. Oral iron initiated. Hemoccult pending. Anticipate probable need for additional blood tomorrow, type and screen in a.m. Iron level was low at 34 on on 02/11. Hold naproxen & ASA. May be hemolyzing blood previously transfused, bilirubin normal yesterday-Check haptoglobin/LDH with labs tomorrow. Weight down 3 kg from yesterday but remains positive through the hospitalization and hemoglobin down slightly despite negative fluid balance yesterday. Patient describe dysuria yesterday and urinary frequency which he indicated has been present for about 6 months, UA negative. Urine volumes improving since Flomax initiated. Constipation resolved. Limited activity with physical therapy; guardianship pending to permit placement. 02/23/18 Hgb 7.6-slightly improved today, s/p 3 unit PRBC during hospital course and (2 units preceded VAIBHAV) and has been treated with IV iron. Oral iron initiated. Hemoccult pending. Continue iron therapy; no clear evidence of hemolysis thus far. Continue to monitor hemoglobin daily until above 8. Last bowel movement at least 4-5 days ago-MiraLAX/Senokot doses increased; may require milk of magnesia or alternate stimulant. Much more interactive/appropriate responses today. Will discuss with case management tomorrow, may benefit from repeat psychiatric assessment of competency. 02/24/18 Hgb 7.4. Stool for occult blood is pending. B12 also pending. Continue iron. ASA and Naproxen are on hold. Constipation - last BM 02/21 per RN. Will give Dulcolax today if no results. Good oral intake. VSS; hemodynamically stable. 02/25/18 Hgb 7.3. Stool for occult blood is pending (had BM last night but Hemoccult was not sent). B12 low normal at 272 - methylmalonic acid level ordered; initiate oral B-12 supplementation. Haptoglobin pending. Continue iron. ASA and Naproxen are on hold. Continues on Plavix. VSS; hemodynamically stable. Largely asymptomatic in regards to persistent anemia. Weight is up 2 kg over the past 48 hours-Lasix to be given again today. 02/26/18 [place] - Covering for Dr. Lewis Hemoglobin largely stable at 7.5 this am. Pain controlled. Tolerating therapy. Blood pressure and blood sugars stable - continue treatments. Continue with supportive care, support, and therapy. Anticipate Dr Lewis's return tomorrow. 03/01/18 [place] - Covering for Dr. Lewis Medically doing well-BP, sugars, vitals stable. Emotional support for loss of spouse - very difficult transition for him. Continue with supportive care. Plan - 03/02/18: Covering for Dr. Lewis Medically doing well-BP, sugars, vitals stable. Emotional support for loss of spouse - very difficult transition for him. May consider psychiatric consult for acute grief and treatment recommendations. Continue with supportive care. Will recheck labs in AM to monitor blood counts, electrolytes and renal function. Case management assisting with discharge planning. Dr. Lewis to assume care on 03/03/18.
[2018-03-20] MEDS: QUETIAPINE 50 MG TABLET PO SCH (20:18)
[2018-03-20] MEDS: RANITIDINE 150 MG TABLET PO SCH (20:19)
[2018-03-20] MEDS: TAMSULOSIN 0.4 MG CAPSULE PO SCH (20:19)
[2018-03-20] MEDS: SUCRALFATE 1 GM TABLET PO SCH (20:19)
[2018-03-21] MEDS: CLOPIDOGREL 75 MG TABLET PO SCH (08:37)
[2018-03-21] MEDS: METFORMIN 1,000 MG TABLET PO SCH ×2 (08:38→17:04)
[2018-03-21] MEDS: CARVEDILOL 6.25 MG TABLET PO SCH ×2 (08:38→17:05)
[2018-03-21] MEDS: AMLODIPINE 5 MG TABLET PO SCH (08:38)
[2018-03-21] MEDS: FERROUS GLUCONATE 324 MG TABLET PO SCH (08:38)
[2018-03-21] MEDS: CYANOCOBALAMIN (B-12) 500mcg TABLET PO SCH (08:38)
[2018-03-21] MEDS: ACETAMINOPHEN 325 MG TABLET PO SCH ×4 (08:38→20:28)
[2018-03-21] MEDS: SENNA + DOCUSATE TABLET PO SCH ×2 (08:39→20:25)
[2018-03-21] MEDS: ESCITALOPRAM 20 MG TABLET PO SCH (08:39)
[2018-03-21] MEDS: POLYETHYL GLYCOL 3350 17gm PACKET PO SCH ×2 (08:39→20:25)
--- NOTE | 2018-03-21 10:45 | Orthopedic Progress Note ---
Date: Date: 03/21/18 Time: 102 Subjective/Severity of Illness: Jonathan had a near syncope event approximately 10 min prior to rounding this morning. Nursing report he was walking patient and he has changed of LOC and nearly falls. Did not fall to ground, was assisted back to bed. Rapid Response was called. Jonathan is alert and oriented x3, denies any dizziness or feeling lightheaded, CP, SOA, headaches, weakness. He thinks his "leg tried to give out". Exam - Constitutional Vital Signs: Temperature 97 F 03/21/18 08:00 Pulse Rate 61 03/21/18 09:47 Respiratory Rate 18 03/21/18 08:00 Blood Pressure 111/62 03/21/18 10:23 Pulse Oximetry 97 03/21/18 10:23 General: cooperative, healthy appearing, no acute distress, well developed, well groomed Nutritional Appearance: well nourished Orientation: alert, oriented x3 Constitutional Comments: Neuro grossly intact CN II-XII. - RLE Postoperative Appearance: extremity compartments are soft and nontender, neurovascullary intact to extremities - Respiratory Respiratory Exam: CTA bilaterally, non-labored - Cardiac Cardiovascular exam: Regular Rate/Rhythm, pedal pulses intact - Abdominal GI/Abdominal Exam: soft, normoactive BS x4 - Wound Right Heel Wound Drainage Amount: Small Wound Drainage Description: Sanguineous Wound Drainage Odor: No Odor Wound Bed Appearance: Beefy Red Left Lateral Heel Wound Drainage Amount: None Wound Drainage Odor: No Odor Wound Bed Appearance: [place] Right Axilla Wound Drainage Amount: None Wound Drainage Odor: No Odor Wound Bed Appearance: [place] - Labs Result Diagrams: 03/21/18 10:00 03/21/18 10:00 Abnormal lab results 03/21/18 Range/Units 10:00 RBC 3.61 L (4.50-5.90) M/MM3 Hgb 9.7 L (13.5-17.5) GM/DL Hct 30.1 L (41-53) % MPV 8.7 L (9.4-12.4) UM3 [place] % (Auto) 9.9 H (0-9.0) % H & H 02/14/18 02/14/18 02/14/18 Range/Units 04:09 13:13 17:37 Hgb 8.7 L 9.8 L D 10.6 L (13.5-17.5) GM/DL Hct 27.9 L 31.5 L D (41-53) % 02/14/18 02/16/18 02/18/18 Range/Units 21:43 04:34 03:56 Hgb 10.9 L 10.7 L 10.8 L (13.5-17.5) GM/DL Hct 33.3 L 33.4 L (41-53) % 02/18/18 02/19/18 02/20/18 Range/Units 21:15 04:47 04:18 Hgb 9.3 L D 8.5 L 7.0 L D (13.5-17.5) GM/DL Hct 28.4 L D 26.5 L 21.9 L D (41-53) % 02/20/18 02/21/18 02/22/18 Range/Units 12:49 04:31 04:09 Hgb 7.9 L D 7.4 L 7.2 L (13.5-17.5) GM/DL Hct 23.2 L 22.7 L (41-53) % 02/23/18 02/24/18 02/25/18 Range/Units 03:57 04:12 04:11 Hgb 7.6 L 7.4 L 7.3 L (13.5-17.5) GM/DL Hct 23.6 L 23.0 L 23.2 L (41-53) % 02/26/18 03/03/18 03/08/18 Range/Units 03:58 04:03 04:49 Hgb 7.5 L 7.8 L 9.1 L (13.5-17.5) GM/DL Hct 23.8 L 25.0 L 29.4 L (41-53) % 03/21/18 Range/Units 10:00 Hgb 9.7 L (13.5-17.5) GM/DL Hct 30.1 L (41-53) % Orthopedic Assessment and Plan (1) Hip dislocation, right Status: Acute Qualifiers: Encounter type: initial encounter Qualified Code(s): S73.004A - Unspecified dislocation of right hip, initial encounter Problem Details: Recurrent, closed reduction in OR 02/04/18, 02/06/18, 02/12/18--> VAIBHAV 02/18/18 Assessment and Plan: Mr Foley was taken to the OR on 02/04/18, 02/06/18 & 02/12/18 for closed reduction of the right hip under anesthesia. 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 Continue hip precautions. Awaiting placement instructions. 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 Gaming Guardianship still pending, see CM notes for details. Wound consult- for pressure ulcers on heels. Current anti-coagulation protocol- Plavix 75mg daily. ASA 81mg. SCD's for added protection Dr. James managing medically. monitoring blood sugars PRN. PT/OT services to improve independent function. Near syncope- Appears orthostatic hypotension vs vasovagal. EKG- SR with LBBB, no ST elevation. Dr. James paged by nursing for further management. - Additional Diagnoses Atrial Fibrillation: rate controlled Diabetes: resume oral medications, other (Has been under good control.) CAD: no active chest pain Anemia: no intervention required Hospital Course Summary Disclaimer: The visit summary below is not to be considered part of the above Progress Note. 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 Psychiatric evaluation suggested that the patient is not competent to make his own medication decisions. Case management is working on obtaining a guardian for the patient for consent to do a hip revision. Patient remains at high risk for recurrent dislocation, especially if transferred to [facility]ci as [facility] nursing staff is well educated on precautions. Continue with current cares. Continue wedge pillow and straight leg immobilizer to minimize risk. Encourage participation in therapies to work with him on precautions and ambulation. Continue with bowel motivation. Recheck labs in AM to monitor blood counts, electrolytes and renal function. 02/16/18 [place] - Covering for Dr Lewis Clinically doing well. Forgetful about hip precautions. Plavix on hold for upcoming surgical procedure. Will start SCD for DVT prevention. Blood pressure and blood sugars stable - continue with current treatment. Encourage participation in therapies to work with him on precautions and ambulation. Patient remains at high risk for recurrent dislocation, especially if transferred to fci as [facility] nursing staff is well educated on precautions. Anticipate Dr Lewis's return tomorrow. 02/19/18 [place] - Covering for Dr Lewis Will decrease IVF to 50cc/hr - oral drive with decrease. Encourage nursing to give Dulcolax to help with bowel function. Urine output slow-will place Herman, start bladder retraining, and initiate Flomax. Nursing not able to place Herman as pt very resistant to that intervention. Will hold on Herman, but continue Flomax. Continue with post op pain control and therapy. Blood sugars and pressure stable with current regimen. Lab ordered for tomorrow. 02/20/18 [place] - covering for Dr Lewis Hgb down to 7.0; will type and cross for 1 unit PRBC. With weight trending up give Lasix post-transfusion. DC IVF. Oral intake starting to improve today. Start tracking I/O - if UO does not improve may need to restart IVF. Renal function is stable. Constipation - BM on 02/1802/21/[address] Lewis Hgb 7.4, s/p 1 unit PRBC transfusion yesterday (and 2 units on 02/14). Dressing is reportedly c/d/i without drainage. Check stool for occult blood. Iron level was low at 34 on on 02/11. Platelets also showing downward trend: Hold naproxen & ASA. He is hemodynamically stable. Weight continues to trend up; he is up 6 kg from date of admission. Anemia could be partly dilutional in nature. Unable to calculate I/O d/t urinary incontinence. He is maintaining saturations on room air. CXR yesterday was negative. Electrolytes/renal function stable. 02/22/18 Hgb 7.2, s/p 3 unit PRBC during hospital course and has been treated with IV iron. Oral iron initiated. Hemoccult pending. Anticipate probable need for additional blood tomorrow, type and screen in a.m. Iron level was low at 34 on on 02/11. Hold naproxen & ASA. May be hemolyzing blood previously transfused, bilirubin normal yesterday-Check haptoglobin/LDH with labs tomorrow. Weight down 3 kg from yesterday but remains positive through the hospitalization and hemoglobin down slightly despite negative fluid balance yesterday. Patient describe dysuria yesterday and urinary frequency which he indicated has been present for about 6 months, UA negative. Urine volumes improving since Flomax initiated. Constipation resolved. Limited activity with physical therapy; guardianship pending to permit placement. 02/23/18 Hgb 7.6-slightly improved today, s/p 3 unit PRBC during hospital course and (2 units preceded VAIBHAV) and has been treated with IV iron. Oral iron initiated. Hemoccult pending. Continue iron therapy; no clear evidence of hemolysis thus far. Continue to monitor hemoglobin daily until above 8. Last bowel movement at least 4-5 days ago-MiraLAX/Senokot doses increased; may require milk of magnesia or alternate stimulant. Much more interactive/appropriate responses today. Will discuss with case management tomorrow, may benefit from repeat psychiatric assessment of competency. 02/24/18 Hgb 7.4. Stool for occult blood is pending. B12 also pending. Continue iron. ASA and Naproxen are on hold. Constipation - last BM 02/21 per RN. Will give Dulcolax today if no results. Good oral intake. VSS; hemodynamically stable. 02/25/18 Hgb 7.3. Stool for occult blood is pending (had BM last night but Hemoccult was not sent). B12 low normal at 272 - methylmalonic acid level ordered; initiate oral B-12 supplementation. Haptoglobin pending. Continue iron. ASA and Naproxen are on hold. Continues on Plavix. VSS; hemodynamically stable. Largely asymptomatic in regards to persistent anemia. Weight is up 2 kg over the past 48 hours-Lasix to be given again today. 02/26/18 [place] - Covering for Dr. Lewis Hemoglobin largely stable at 7.5 this am. Pain controlled. Tolerating therapy. Blood pressure and blood sugars stable - continue treatments. Continue with supportive care, support, and therapy. Anticipate Dr Lewis's return tomorrow. 03/01/18 [place] - Covering for Dr. Lewis Medically doing well-BP, sugars, vitals stable. Emotional support for loss of spouse - very difficult transition for him. Continue with supportive care. Plan - 03/02/18: Covering for Dr. Lewis Medically doing well-BP, sugars, vitals stable. Emotional support for loss of spouse - very difficult transition for him. May consider psychiatric consult for acute grief and treatment recommendations. Continue with supportive care. Will recheck labs in AM to monitor blood counts, electrolytes and renal function. Case management assisting with discharge planning. Dr. Lewis to assume care on 03/03/18.
[2018-03-21] MEDS: RANITIDINE 150 MG TABLET PO SCH (20:28)
[2018-03-21] MEDS: QUETIAPINE 50 MG TABLET PO SCH (20:28)
[2018-03-21] MEDS: SUCRALFATE 1 GM TABLET PO SCH (20:29)
[2018-03-21] MEDS: TAMSULOSIN 0.4 MG CAPSULE PO SCH (20:29)
[2018-03-22] MEDS: FERROUS GLUCONATE 324 MG TABLET PO SCH (08:01)
[2018-03-22] MEDS: CARVEDILOL 6.25 MG TABLET PO SCH ×2 (08:01→17:26)
[2018-03-22] MEDS: CYANOCOBALAMIN (B-12) 500mcg TABLET PO SCH (08:01)
[2018-03-22] MEDS: ACETAMINOPHEN 325 MG TABLET PO SCH ×4 (08:01→20:11)
[2018-03-22] MEDS: METFORMIN 1,000 MG TABLET PO SCH ×2 (08:01→17:27)
[2018-03-22] MEDS: CLOPIDOGREL 75 MG TABLET PO SCH (08:01)
[2018-03-22] MEDS: POLYETHYL GLYCOL 3350 17gm PACKET PO SCH ×2 (08:02→20:12)
[2018-03-22] MEDS: AMLODIPINE 5 MG TABLET PO SCH (08:02)
[2018-03-22] MEDS: ESCITALOPRAM 20 MG TABLET PO SCH (08:02)
[2018-03-22] MEDS: SENNA + DOCUSATE TABLET PO SCH ×2 (08:02→20:12)
[2018-03-22] MEDS: SUCRALFATE 1 GM TABLET PO SCH (20:11)
[2018-03-22] MEDS: QUETIAPINE 50 MG TABLET PO SCH (20:11)
[2018-03-22] MEDS: TAMSULOSIN 0.4 MG CAPSULE PO SCH (20:12)
[2018-03-22] MEDS: RANITIDINE 150 MG TABLET PO SCH (20:12)
[2018-03-23] MEDS: METFORMIN 1,000 MG TABLET PO SCH ×2 (09:40→17:29)
[2018-03-23] MEDS: CYANOCOBALAMIN (B-12) 500mcg TABLET PO SCH (09:40)
[2018-03-23] MEDS: CLOPIDOGREL 75 MG TABLET PO SCH (09:40)
[2018-03-23] MEDS: ESCITALOPRAM 20 MG TABLET PO SCH (09:40)
[2018-03-23] MEDS: AMLODIPINE 5 MG TABLET PO SCH (09:41)
[2018-03-23] MEDS: CARVEDILOL 6.25 MG TABLET PO SCH ×2 (09:41→17:29)
[2018-03-23] MEDS: ACETAMINOPHEN 325 MG TABLET PO SCH ×4 (09:41→20:59)
[2018-03-23] MEDS: FERROUS GLUCONATE 324 MG TABLET PO SCH (09:41)
[2018-03-23] MEDS: POLYETHYL GLYCOL 3350 17gm PACKET PO SCH ×2 (09:42→20:58)
[2018-03-23] MEDS: SENNA + DOCUSATE TABLET PO SCH ×2 (09:42→20:58)
[2018-03-23] MEDS: TAMSULOSIN 0.4 MG CAPSULE PO SCH (20:59)
[2018-03-23] MEDS: QUETIAPINE 50 MG TABLET PO SCH (21:00)
[2018-03-23] MEDS: SUCRALFATE 1 GM TABLET PO SCH (21:00)
[2018-03-23] MEDS: RANITIDINE 150 MG TABLET PO SCH (21:00)
[2018-03-24] MEDS: METFORMIN 1,000 MG TABLET PO SCH ×2 (09:06→17:27)
[2018-03-24] MEDS: FERROUS GLUCONATE 324 MG TABLET PO SCH (09:06)
[2018-03-24] MEDS: ESCITALOPRAM 20 MG TABLET PO SCH (09:06)
[2018-03-24] MEDS: CYANOCOBALAMIN (B-12) 500mcg TABLET PO SCH (09:06)
[2018-03-24] MEDS: CLOPIDOGREL 75 MG TABLET PO SCH (09:06)
[2018-03-24] MEDS: ACETAMINOPHEN 325 MG TABLET PO SCH ×4 (09:07→21:08)
[2018-03-24] MEDS: CARVEDILOL 6.25 MG TABLET PO SCH ×2 (09:07→17:27)
[2018-03-24] MEDS: SENNA + DOCUSATE TABLET PO SCH (09:07)
[2018-03-24] MEDS: AMLODIPINE 5 MG TABLET PO SCH (09:07)
[2018-03-24] MEDS: POLYETHYL GLYCOL 3350 17gm PACKET PO SCH (09:07)
--- NOTE | 2018-03-24 09:54 | Orthopedic Progress Note ---
Date: Date: 03/24/18 Time: 951 Subjective/Severity of Illness: Jonathan is doing well, no concerns. No symptoms of dizziness, lightheadedness, CP, SOA. Had near syncope episode on Saturday, no issues since. Exam - Constitutional Vital Signs: Temperature 98 F 03/24/18 08:00 Pulse Rate 61 03/24/18 08:00 Respiratory Rate 16 03/24/18 08:00 Blood Pressure 145/71 H 03/24/18 08:00 Pulse Oximetry 96 03/24/18 08:00 General: cooperative, healthy appearing, no acute distress, well developed, well groomed Nutritional Appearance: well nourished Orientation: alert, oriented x3 - RLE Postoperative Appearance: surgical incision healing without complication, extremity compartments are soft and nontender, neurovascullary intact to extremities - Respiratory Respiratory Exam: non-labored - Cardiac Cardiovascular exam: pedal pulses intact - Abdominal GI/Abdominal Exam: soft - Wound Right Axilla Wound Bed Appearance: [place] - Labs Result Diagrams: 03/21/18 10:00 03/21/18 10:00 H & H 02/14/18 02/14/18 02/14/18 Range/Units 04:09 13:13 17:37 Hgb 8.7 L 9.8 L D 10.6 L (13.5-17.5) GM/DL Hct 27.9 L 31.5 L D (41-53) % 02/14/18 02/16/18 02/18/18 Range/Units 21:43 04:34 03:56 Hgb 10.9 L 10.7 L 10.8 L (13.5-17.5) GM/DL Hct 33.3 L 33.4 L (41-53) % 02/18/18 02/19/18 02/20/18 Range/Units 21:15 04:47 04:18 Hgb 9.3 L D 8.5 L 7.0 L D (13.5-17.5) GM/DL Hct 28.4 L D 26.5 L 21.9 L D (41-53) % 02/20/18 02/21/18 02/22/18 Range/Units 12:49 04:31 04:09 Hgb 7.9 L D 7.4 L 7.2 L (13.5-17.5) GM/DL Hct 23.2 L 22.7 L (41-53) % 02/23/18 02/24/18 02/25/18 Range/Units 03:57 04:12 04:11 Hgb 7.6 L 7.4 L 7.3 L (13.5-17.5) GM/DL Hct 23.6 L 23.0 L 23.2 L (41-53) % 02/26/18 03/03/18 03/08/18 Range/Units 03:58 04:03 04:49 Hgb 7.5 L 7.8 L 9.1 L (13.5-17.5) GM/DL Hct 23.8 L 25.0 L 29.4 L (41-53) % 03/21/18 Range/Units 10:00 Hgb 9.7 L (13.5-17.5) GM/DL Hct 30.1 L (41-53) % Orthopedic Assessment and Plan (1) Hip dislocation, right Status: Acute Qualifiers: Encounter type: initial encounter Qualified Code(s): S73.004A - Unspecified dislocation of right hip, initial encounter Problem Details: Recurrent, closed reduction in OR 02/04/18, 02/06/18, 02/12/18--> VAIBHAV 02/18/18 Assessment and Plan: Mr Foley was taken to the OR on 02/04/18, 02/06/18 & 02/12/18 for closed reduction of the right hip under anesthesia. 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 Continue hip precautions. Awaiting placement instructions. 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 Gaming Guardianship still pending, see CM notes for details. Wound consult- for pressure ulcers on heels. Current anti-coagulation protocol- Plavix 75mg daily. ASA 81mg. SCD's for added protection Dr. James managing medically. monitoring blood sugars PRN. PT/OT services to improve independent function. - Additional Diagnoses Atrial Fibrillation: rate controlled Diabetes: resume oral medications, other (Has been under good control.) CAD: no active chest pain Anemia: no intervention required Hospital Course Summary Disclaimer: The visit summary below is not to be considered part of the above Progress Note. 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 Psychiatric evaluation suggested that the patient is not competent to make his own medication decisions. Case management is working on obtaining a guardian for the patient for consent to do a hip revision. Patient remains at high risk for recurrent dislocation, especially if transferred to residential as [facility] nursing staff is well educated on precautions. Continue with current cares. Continue wedge pillow and straight leg immobilizer to minimize risk. Encourage participation in therapies to work with him on precautions and ambulation. Continue with bowel motivation. Recheck labs in AM to monitor blood counts, electrolytes and renal function. 02/16/18 [place] - Covering for Dr Lewis Clinically doing well. Forgetful about hip precautions. Plavix on hold for upcoming surgical procedure. Will start SCD for DVT prevention. Blood pressure and blood sugars stable - continue with current treatment. Encourage participation in therapies to work with him on precautions and ambulation. Patient remains at high risk for recurrent dislocation, especially if transferred to residential as [facility] nursing staff is well educated on precautions. Anticipate Dr Lewis's return tomorrow. 02/19/18 [place] - Covering for Dr Lewis Will decrease IVF to 50cc/hr - oral drive with decrease. Encourage nursing to give Dulcolax to help with bowel function. Urine output slow-will place Herman, start bladder retraining, and initiate Flomax. Nursing not able to place Herman as pt very resistant to that intervention. Will hold on Herman, but continue Flomax. Continue with post op pain control and therapy. Blood sugars and pressure stable with current regimen. Lab ordered for tomorrow. 02/20/18 [place] - covering for Dr Lewis Hgb down to 7.0; will type and cross for 1 unit PRBC. With weight trending up give Lasix post-transfusion. DC IVF. Oral intake starting to improve today. Start tracking I/O - if UO does not improve may need to restart IVF. Renal function is stable. Constipation - BM on 02/1802/21/[address] Lewis Hgb 7.4, s/p 1 unit PRBC transfusion yesterday (and 2 units on 02/14). Dressing is reportedly c/d/i without drainage. Check stool for occult blood. Iron level was low at 34 on on 02/11. Platelets also showing downward trend: Hold naproxen & ASA. He is hemodynamically stable. Weight continues to trend up; he is up 6 kg from date of admission. Anemia could be partly dilutional in nature. Unable to calculate I/O d/t urinary incontinence. He is maintaining saturations on room air. CXR yesterday was negative. Electrolytes/renal function stable. 02/22/18 Hgb 7.2, s/p 3 unit PRBC during hospital course and has been treated with IV iron. Oral iron initiated. Hemoccult pending. Anticipate probable need for additional blood tomorrow, type and screen in a.m. Iron level was low at 34 on on 02/11. Hold naproxen & ASA. May be hemolyzing blood previously transfused, bilirubin normal yesterday-Check haptoglobin/LDH with labs tomorrow. Weight down 3 kg from yesterday but remains positive through the hospitalization and hemoglobin down slightly despite negative fluid balance yesterday. Patient describe dysuria yesterday and urinary frequency which he indicated has been present for about 6 months, UA negative. Urine volumes improving since Flomax initiated. Constipation resolved. Limited activity with physical therapy; guardianship pending to permit placement. 02/23/18 Hgb 7.6-slightly improved today, s/p 3 unit PRBC during hospital course and (2 units preceded VAIBHAV) and has been treated with IV iron. Oral iron initiated. Hemoccult pending. Continue iron therapy; no clear evidence of hemolysis thus far. Continue to monitor hemoglobin daily until above 8. Last bowel movement at least 4-5 days ago-MiraLAX/Senokot doses increased; may require milk of magnesia or alternate stimulant. Much more interactive/appropriate responses today. Will discuss with case management tomorrow, may benefit from repeat psychiatric assessment of competency. 02/24/18 Hgb 7.4. Stool for occult blood is pending. B12 also pending. Continue iron. ASA and Naproxen are on hold. Constipation - last BM 02/21 per RN. Will give Dulcolax today if no results. Good oral intake. VSS; hemodynamically stable. 02/25/18 Hgb 7.3. Stool for occult blood is pending (had BM last night but Hemoccult was not sent). B12 low normal at 272 - methylmalonic acid level ordered; initiate oral B-12 supplementation. Haptoglobin pending. Continue iron. ASA and Naproxen are on hold. Continues on Plavix. VSS; hemodynamically stable. Largely asymptomatic in regards to persistent anemia. Weight is up 2 kg over the past 48 hours-Lasix to be given again today. 02/26/18 [place] - Covering for Dr. Lewis Hemoglobin largely stable at 7.5 this am. Pain controlled. Tolerating therapy. Blood pressure and blood sugars stable - continue treatments. Continue with supportive care, support, and therapy. Anticipate Dr Lewis's return tomorrow. 03/01/18 [place] - Covering for Dr. Lewis Medically doing well-BP, sugars, vitals stable. Emotional support for loss of spouse - very difficult transition for him. Continue with supportive care. Plan - 03/02/18: Covering for Dr. Lewis Medically doing well-BP, sugars, vitals stable. Emotional support for loss of spouse - very difficult transition for him. May consider psychiatric consult for acute grief and treatment recommendations. Continue with supportive care. Will recheck labs in AM to monitor blood counts, electrolytes and renal function. Case management assisting with discharge planning. Dr. Lewis to assume care on 03/03/18.
--- NOTE | 2018-03-24 11:18 | Neuropsych Progress Note ---
[facility] Subjective Date: 03/24/18 - Sujective/Severity of Illness Medications: Acetaminophen (Tylenol) 650 mg PO QID [facility] Last Admin: 03/24/18 09:07 Dose: 650 mg Amlodipine Besylate (Norvasc) 5 mg PO DAILY [facility] Last Admin: 03/24/18 09:07 Dose: 5 mg Aspirin (Ecotrin) 81 mg PO DAILY [facility] Last Admin: 02/21/18 08:33 Dose: 81 mg Bisacodyl (Dulcolax) 10 mg RECTALLY DAILY PRN PRN Reason: Constipation Last Admin: 02/24/18 17:00 Dose: 10 mg Carvedilol (Coreg) 6.25 mg PO BIDWM [facility] Last Admin: 03/24/18 09:07 Dose: 6.25 mg Clopidogrel Bisulfate (Plavix) 75 mg PO DAILY [facility] Last Admin: 03/24/18 09:06 Dose: 75 mg Cyanocobalamin (Vit. B-12) 1,000 mcg PO DAILY [facility] Last Admin: 03/24/18 09:06 Dose: 1,000 mcg Diphenhydramine HCl (Benadryl) 25 mg PO Q6H PRN PRN Reason: Itching Diphenhydramine HCl (Benadryl) 25 mg IVP Q6HR PRN PRN Reason: Itching Escitalopram Oxalate (Lexapro) 20 mg PO DAILY [facility] Last Admin: 03/24/18 09:06 Dose: 20 mg Ferrous Gluconate (Fergon) 324 mg PO WB [facility] Last Admin: 03/24/18 09:06 Dose: 324 mg Lorazepam (Ativan) 1 mg PO HS PRN PRN Reason: Sleep Magnesium Hydroxide (Mom) 30 ml PO DAILY PRN PRN Reason: Constipation Metformin HCl (Glucophage) 1,000 mg PO BIDWM [facility] Last Admin: 03/24/18 09:06 Dose: 1,000 mg Naproxen (Aleve (Naproxen) 220 Mg) 220 mg PO HS [facility] Last Admin: 02/20/18 20:05 Dose: 220 mg Ondansetron HCl (Zofran) 4 mg IVP Q4H PRN PRN Reason: Nausea &/or vomiting Oxybutynin Chloride (Ditropan Xl) 10 mg PO DAILY [facility] Last Admin: 03/24/18 09:06 Dose: 10 mg Polyethylene Glycol (Miralax) 17 gm PO BID [facility] Last Admin: 03/24/18 09:07 Dose: Not Given Quetiapine Fumarate (Seroquel) 50 mg PO [facility] Last Admin: 03/23/18 21:00 Dose: 50 mg Ranitidine HCl (Zantac) 300 mg PO [facility] Last Admin: 03/23/18 21:00 Dose: 300 mg Senna/Docusate Sodium (Senna Plus Tablet) 2 tab PO BID [facility] Last Admin: 03/24/18 09:07 Dose: Not Given Sodium Chloride (Normal Saline) 500 ml IV PRN PRN Last Admin: 02/20/18 08:48 Dose: 500 ml Sodium Chloride (Iv Flush) 10 ml IV PRN PRN PRN Reason: Flushing Last Admin: 03/07/18 20:13 Dose: 10 ml Sucralfate (Carafate) 1 gm PO [facility] Last Admin: 03/23/18 21:00 Dose: 1 gm Tamsulosin HCl (Flomax) 0.4 mg PO [facility] Last Admin: 03/23/18 20:59 Dose: 0.4 mg Tramadol HCl (Ultram) 50 - 100 mg PO Q6H PRN PRN Reason: Pain Last Admin: 03/03/18 17:00 Dose: 50 mg Subjective: Patient seen for concern re: worsening depressive symptoms as he has now been in the hospital for weeks awaiting guardianship and patient's recently . Patient is pleasant during interview and does report feeling that he is having a harder time due to the above 2 issues. He is future-oriented overall and is looking forward to life outside of the hospital. He denies any change in appetite or energy level. He does feel he is having difficulty sleeping due to anxiety. He denies SI, HI, or AVH. He is working with OT when requested. Reassurance provided in regards to feelings given his current situation. He is open to trial of mirtazapine to target mood, sleep. Start Time: 11:40 Stop Time: 12:00 Mental Status Exam Vitals: Last Vital Signs Temp 98 F 03/24/18 08:00 Pulse 61 03/24/18 08:00 Resp 16 03/24/18 08:00 BP 145/71 H 03/24/18 08:00 Pulse Ox 96 03/24/18 08:00 Height: 1.88 m Weight: 99.8 kg - Mental Status Exam Muscle Strength/Tone: Normal Dressing: Casual Grooming: Fair Attitude: Cooperative Motor Activity: Retardation Eye Contact: Good Speech: Normal Volume: Normal Rhythm: Appropriate Rhythm Sensory: Alert Orientation: Oriented X4 Mood: Depressed Affect: Sad Rate of Thoughts: Appropriate Rate Thought Organization: Organized, [place] Associations: Intact Abstract Reasoning: Poor abstract reasoning Thought Content: Ruminations Perception/Psychotic: Perception Normal Language: Other (Some decrease from baseline, not completely impaired) Fund of Knowledge: Other (decreased from premorbid baseline) Memory: Poor-recent Suicidal Ideation: Denies Homicidal Ideation: Denies Insight: Limited Judgement: Limited Impulse Control: Fair - Laboratory Result Diagrams: 03/21/18 10:00 03/21/18 10:00 Assessment and Plan (1) 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 May increase to 15mg PO q HS in near future. Hospital Course Summary Disclaimer: The visit summary below is not to be considered part of the above Progress Note. 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 Psychiatric evaluation suggested that the patient is not competent to make his own medication decisions. Case management is working on obtaining a guardian for the patient for consent to do a hip revision. Patient remains at high risk for recurrent dislocation, especially if transferred to senior care as [facility] nursing staff is well educated on precautions. Continue with current cares. Continue wedge pillow and straight leg immobilizer to minimize risk. Encourage participation in therapies to work with him on precautions and ambulation. Continue with bowel motivation. Recheck labs in AM to monitor blood counts, electrolytes and renal function. 02/16/18 [place] - Covering for Dr Lewis Clinically doing well. Forgetful about hip precautions. Plavix on hold for upcoming surgical procedure. Will start SCD for DVT prevention. Blood pressure and blood sugars stable - continue with current treatment. Encourage participation in therapies to work with him on precautions and ambulation. Patient remains at high risk for recurrent dislocation, especially if transferred to senior care as [facility] nursing staff is well educated on precautions. Anticipate Dr Lewis's return tomorrow. 02/19/18 [place] - Covering for Dr Lewis Will decrease IVF to 50cc/hr - oral drive with decrease. Encourage nursing to give Dulcolax to help with bowel function. Urine output slow-will place Herman, start bladder retraining, and initiate Flomax. Nursing not able to place Herman as pt very resistant to that intervention. Will hold on Herman, but continue Flomax. Continue with post op pain control and therapy. Blood sugars and pressure stable with current regimen. Lab ordered for tomorrow. 02/20/18 [place] - covering for Dr Lewis Hgb down to 7.0; will type and cross for 1 unit PRBC. With weight trending up give Lasix post-transfusion. DC IVF. Oral intake starting to improve today. Start tracking I/O - if UO does not improve may need to restart IVF. Renal function is stable. Constipation - BM on 02/1802/21/[address] Lewis Hgb 7.4, s/p 1 unit PRBC transfusion yesterday (and 2 units on 02/14). Dressing is reportedly c/d/i without drainage. Check stool for occult blood. Iron level was low at 34 on on 02/11. Platelets also showing downward trend: Hold naproxen & ASA. He is hemodynamically stable. Weight continues to trend up; he is up 6 kg from date of admission. Anemia could be partly dilutional in nature. Unable to calculate I/O d/t urinary incontinence. He is maintaining saturations on room air. CXR yesterday was negative. Electrolytes/renal function stable. 02/22/18 Hgb 7.2, s/p 3 unit PRBC during hospital course and has been treated with IV iron. Oral iron initiated. Hemoccult pending. Anticipate probable need for additional blood tomorrow, type and screen in a.m. Iron level was low at 34 on on 02/11. Hold naproxen & ASA. May be hemolyzing blood previously transfused, bilirubin normal yesterday-Check haptoglobin/LDH with labs tomorrow. Weight down 3 kg from yesterday but remains positive through the hospitalization and hemoglobin down slightly despite negative fluid balance yesterday. Patient describe dysuria yesterday and urinary frequency which he indicated has been present for about 6 months, UA negative. Urine volumes improving since Flomax initiated. Constipation resolved. Limited activity with physical therapy; guardianship pending to permit placement. 02/23/18 Hgb 7.6-slightly improved today, s/p 3 unit PRBC during hospital course and (2 units preceded VAIBHAV) and has been treated with IV iron. Oral iron initiated. Hemoccult pending. Continue iron therapy; no clear evidence of hemolysis thus far. Continue to monitor hemoglobin daily until above 8. Last bowel movement at least 4-5 days ago-MiraLAX/Senokot doses increased; may require milk of magnesia or alternate stimulant. Much more interactive/appropriate responses today. Will discuss with case management tomorrow, may benefit from repeat psychiatric assessment of competency. 02/24/18 Hgb 7.4. Stool for occult blood is pending. B12 also pending. Continue iron. ASA and Naproxen are on hold. Constipation - last BM 02/21 per RN. Will give Dulcolax today if no results. Good oral intake. VSS; hemodynamically stable. 02/25/18 Hgb 7.3. Stool for occult blood is pending (had BM last night but Hemoccult was not sent). B12 low normal at 272 - methylmalonic acid level ordered; initiate oral B-12 supplementation. Haptoglobin pending. Continue iron. ASA and Naproxen are on hold. Continues on Plavix. VSS; hemodynamically stable. Largely asymptomatic in regards to persistent anemia. Weight is up 2 kg over the past 48 hours-Lasix to be given again today. 02/26/18 [place] - Covering for Dr. Lewis Hemoglobin largely stable at 7.5 this am. Pain controlled. Tolerating therapy. Blood pressure and blood sugars stable - continue treatments. Continue with supportive care, support, and therapy. Anticipate Dr Lewis's return tomorrow. 03/01/18 [place] - Covering for Dr. Lewis Medically doing well-BP, sugars, vitals stable. Emotional support for loss of spouse - very difficult transition for him. Continue with supportive care. Plan - 03/02/18: Covering for Dr. Lewis Medically doing well-BP, sugars, vitals stable. Emotional support for loss of spouse - very difficult transition for him. May consider psychiatric consult for acute grief and treatment recommendations. Continue with supportive care. Will recheck labs in AM to monitor blood counts, electrolytes and renal function. Case management assisting with discharge planning. Dr. Lewis to assume care on 03/03/18.
[2018-03-24] MEDS ORDERED: POLYETHYL GLYCOL 3350 17gm PACKET PO PRN (12:46)
[2018-03-24] MEDS ORDERED: SENNA + DOCUSATE TABLET PO PRN (12:46)
[2018-03-24] MEDS: MIRTAZAPINE 15 MG TABLET PO SCH (21:08)
[2018-03-24] MEDS: RANITIDINE 150 MG TABLET PO SCH (21:09)
[2018-03-24] MEDS: QUETIAPINE 50 MG TABLET PO SCH (21:09)
[2018-03-24] MEDS: SUCRALFATE 1 GM TABLET PO SCH (21:10)
[2018-03-24] MEDS: TAMSULOSIN 0.4 MG CAPSULE PO SCH (21:10)
[2018-03-24] MEDS ORDERED: FALL RISK - PHARMACY CONSULT MC ONE (21:58)
[2018-03-25] MEDS: CARVEDILOL 6.25 MG TABLET PO SCH ×2 (08:50→17:35)
[2018-03-25] MEDS: FERROUS GLUCONATE 324 MG TABLET PO SCH (08:50)
[2018-03-25] MEDS: CYANOCOBALAMIN (B-12) 500mcg TABLET PO SCH (08:51)
[2018-03-25] MEDS: METFORMIN 1,000 MG TABLET PO SCH ×2 (08:51→17:35)
[2018-03-25] MEDS: AMLODIPINE 5 MG TABLET PO SCH (08:51)
[2018-03-25] MEDS: CLOPIDOGREL 75 MG TABLET PO SCH (08:51)
[2018-03-25] MEDS: ESCITALOPRAM 20 MG TABLET PO SCH (08:52)
[2018-03-25] MEDS: ACETAMINOPHEN 325 MG TABLET PO SCH ×4 (08:52→20:16)
--- NOTE | 2018-03-25 08:58 | Orthopedic Progress Note ---
Date: Date: 03/25/18 Time: 855 Subjective/Severity of Illness: Jonathan is up in the chair this morning. No new concerns, or complaints. Was seen by Dr. Tejada yesterday. Started on Mirtazapine for his anxiety/ depression. Denies CP, SOA, dizziness, nausea. Exam - Constitutional Vital Signs: Temperature 96.7 F L 03/25/18 07:01 Pulse Rate 58 L 03/25/18 07:01 Respiratory Rate 16 03/24/18 23:46 Blood Pressure 133/65 03/25/18 07:01 Pulse Oximetry 94 03/25/18 07:01 General: cooperative, healthy appearing, no acute distress, well developed, well groomed Nutritional Appearance: well nourished Orientation: alert, oriented x3 - RLE Postoperative Appearance: surgical incision healing without complication, extremity compartments are soft and nontender, neurovascullary intact to extremities Neurological: no deficits Vascular: dorsalis pedis pulse within normal limits - Respiratory Respiratory Exam: CTA bilaterally, non-labored - Cardiac Cardiovascular exam: Regular Rate/Rhythm, pedal pulses intact - Abdominal GI/Abdominal Exam: soft, normoactive BS x4 - Wound Right Heel Wound Drainage Amount: Small Wound Drainage Description: Sanguineous Wound Drainage Odor: No Odor Wound Bed Appearance: Beefy Red Left Lateral Heel Wound Drainage Amount: None Wound Drainage Odor: No Odor Wound Bed Appearance: [place] Right Axilla Wound Drainage Amount: None Wound Drainage Odor: No Odor Wound Bed Appearance: [place] - Labs Result Diagrams: 03/21/18 10:00 03/21/18 10:00 H & H 02/14/18 02/14/18 02/14/18 Range/Units 04:09 13:13 17:37 Hgb 8.7 L 9.8 L D 10.6 L (13.5-17.5) GM/DL Hct 27.9 L 31.5 L D (41-53) % 02/14/18 02/16/18 02/18/18 Range/Units 21:43 04:34 03:56 Hgb 10.9 L 10.7 L 10.8 L (13.5-17.5) GM/DL Hct 33.3 L 33.4 L (41-53) % 02/18/18 02/19/18 02/20/18 Range/Units 21:15 04:47 04:18 Hgb 9.3 L D 8.5 L 7.0 L D (13.5-17.5) GM/DL Hct 28.4 L D 26.5 L 21.9 L D (41-53) % 02/20/18 02/21/18 02/22/18 Range/Units 12:49 04:31 04:09 Hgb 7.9 L D 7.4 L 7.2 L (13.5-17.5) GM/DL Hct 23.2 L 22.7 L (41-53) % 02/23/18 02/24/18 02/25/18 Range/Units 03:57 04:12 04:11 Hgb 7.6 L 7.4 L 7.3 L (13.5-17.5) GM/DL Hct 23.6 L 23.0 L 23.2 L (41-53) % 02/26/18 03/03/18 03/08/18 Range/Units 03:58 04:03 04:49 Hgb 7.5 L 7.8 L 9.1 L (13.5-17.5) GM/DL Hct 23.8 L 25.0 L 29.4 L (41-53) % 03/21/18 Range/Units 10:00 Hgb 9.7 L (13.5-17.5) GM/DL Hct 30.1 L (41-53) % Orthopedic Assessment and Plan (1) Hip dislocation, right Status: Acute Qualifiers: Encounter type: initial encounter Qualified Code(s): S73.004A - Unspecified dislocation of right hip, initial encounter Problem Details: Recurrent, closed reduction in OR 02/04/18, 02/06/18, 02/12/18--> VAIBHAV 02/18/18 Assessment and Plan: Mr Foley was taken to the OR on 02/04/18, 02/06/18 & 02/12/18 for closed reduction of the right hip under anesthesia. 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 Continue hip precautions. Awaiting placement instructions. 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 Gaming Guardianship still pending, see CM notes for details. Wound consult- for pressure ulcers on heels. Current anti-coagulation protocol- Plavix 75mg daily. ASA 81mg. SCD's for added protection Dr. James managing medically. monitoring blood sugars PRN. PT/OT services to improve independent function. - Additional Diagnoses Atrial Fibrillation: rate controlled Diabetes: resume oral medications, other (Has been under good control.) CAD: no active chest pain Anemia: no intervention required Hospital Course Summary Disclaimer: The visit summary below is not to be considered part of the above Progress Note. 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 Psychiatric evaluation suggested that the patient is not competent to make his own medication decisions. Case management is working on obtaining a guardian for the patient for consent to do a hip revision. Patient remains at high risk for recurrent dislocation, especially if transferred to [facility]ci as [facility] nursing staff is well educated on precautions. Continue with current cares. Continue wedge pillow and straight leg immobilizer to minimize risk. Encourage participation in therapies to work with him on precautions and ambulation. Continue with bowel motivation. Recheck labs in AM to monitor blood counts, electrolytes and renal function. 02/16/18 [place] - Covering for Dr Lewis Clinically doing well. Forgetful about hip precautions. Plavix on hold for upcoming surgical procedure. Will start SCD for DVT prevention. Blood pressure and blood sugars stable - continue with current treatment. Encourage participation in therapies to work with him on precautions and ambulation. Patient remains at high risk for recurrent dislocation, especially if transferred to [facility] as [facility] nursing staff is well educated on precautions. Anticipate Dr Lewis's return tomorrow. 02/19/18 [place] - Covering for Dr Lewis Will decrease IVF to 50cc/hr - oral drive with decrease. Encourage nursing to give Dulcolax to help with bowel function. Urine output slow-will place Herman, start bladder retraining, and initiate Flomax. Nursing not able to place Herman as pt very resistant to that intervention. Will hold on Herman, but continue Flomax. Continue with post op pain control and therapy. Blood sugars and pressure stable with current regimen. Lab ordered for tomorrow. 02/20/18 [place] - covering for Dr Lewis Hgb down to 7.0; will type and cross for 1 unit PRBC. With weight trending up give Lasix post-transfusion. DC IVF. Oral intake starting to improve today. Start tracking I/O - if UO does not improve may need to restart IVF. Renal function is stable. Constipation - BM on 02/1802/21/[address] Lewis Hgb 7.4, s/p 1 unit PRBC transfusion yesterday (and 2 units on 02/14). Dressing is reportedly c/d/i without drainage. Check stool for occult blood. Iron level was low at 34 on on 02/11. Platelets also showing downward trend: Hold naproxen & ASA. He is hemodynamically stable. Weight continues to trend up; he is up 6 kg from date of admission. Anemia could be partly dilutional in nature. Unable to calculate I/O d/t urinary incontinence. He is maintaining saturations on room air. CXR yesterday was negative. Electrolytes/renal function stable. 02/22/18 Hgb 7.2, s/p 3 unit PRBC during hospital course and has been treated with IV iron. Oral iron initiated. Hemoccult pending. Anticipate probable need for additional blood tomorrow, type and screen in a.m. Iron level was low at 34 on on 02/11. Hold naproxen & ASA. May be hemolyzing blood previously transfused, bilirubin normal yesterday-Check haptoglobin/LDH with labs tomorrow. Weight down 3 kg from yesterday but remains positive through the hospitalization and hemoglobin down slightly despite negative fluid balance yesterday. Patient describe dysuria yesterday and urinary frequency which he indicated has been present for about 6 months, UA negative. Urine volumes improving since Flomax initiated. Constipation resolved. Limited activity with physical therapy; guardianship pending to permit placement. 02/23/18 Hgb 7.6-slightly improved today, s/p 3 unit PRBC during hospital course and (2 units preceded VAIBHAV) and has been treated with IV iron. Oral iron initiated. Hemoccult pending. Continue iron therapy; no clear evidence of hemolysis thus far. Continue to monitor hemoglobin daily until above 8. Last bowel movement at least 4-5 days ago-MiraLAX/Senokot doses increased; may require milk of magnesia or alternate stimulant. Much more interactive/appropriate responses today. Will discuss with case management tomorrow, may benefit from repeat psychiatric assessment of competency. 02/24/18 Hgb 7.4. Stool for occult blood is pending. B12 also pending. Continue iron. ASA and Naproxen are on hold. Constipation - last BM 02/21 per RN. Will give Dulcolax today if no results. Good oral intake. VSS; hemodynamically stable. 02/25/18 Hgb 7.3. Stool for occult blood is pending (had BM last night but Hemoccult was not sent). B12 low normal at 272 - methylmalonic acid level ordered; initiate oral B-12 supplementation. Haptoglobin pending. Continue iron. ASA and Naproxen are on hold. Continues on Plavix. VSS; hemodynamically stable. Largely asymptomatic in regards to persistent anemia. Weight is up 2 kg over the past 48 hours-Lasix to be given again today. 02/26/18 [place] - Covering for Dr. Lewis Hemoglobin largely stable at 7.5 this am. Pain controlled. Tolerating therapy. Blood pressure and blood sugars stable - continue treatments. Continue with supportive care, support, and therapy. Anticipate Dr Lewis's return tomorrow. 03/01/18 [place] - Covering for Dr. Lewis Medically doing well-BP, sugars, vitals stable. Emotional support for loss of spouse - very difficult transition for him. Continue with supportive care. Plan - 03/02/18: Covering for Dr. Lewis Medically doing well-BP, sugars, vitals stable. Emotional support for loss of spouse - very difficult transition for him. May consider psychiatric consult for acute grief and treatment recommendations. Continue with supportive care. Will recheck labs in AM to monitor blood counts, electrolytes and renal function. Case management assisting with discharge planning. Dr. Lewis to assume care on 03/03/18.
[2018-03-25] MEDS: TAMSULOSIN 0.4 MG CAPSULE PO SCH (20:15)
[2018-03-25] MEDS: RANITIDINE 150 MG TABLET PO SCH (20:15)
[2018-03-25] MEDS: MIRTAZAPINE 15 MG TABLET PO SCH (20:15)
[2018-03-25] MEDS: SUCRALFATE 1 GM TABLET PO SCH (20:16)
[2018-03-25] MEDS: QUETIAPINE 50 MG TABLET PO SCH (20:16)
[2018-03-26] MEDS: CARVEDILOL 6.25 MG TABLET PO SCH ×2 (09:00→17:16)
[2018-03-26] MEDS: ESCITALOPRAM 20 MG TABLET PO SCH (09:00)
[2018-03-26] MEDS: AMLODIPINE 5 MG TABLET PO SCH (09:00)
[2018-03-26] MEDS: FERROUS GLUCONATE 324 MG TABLET PO SCH (09:01)
[2018-03-26] MEDS: CLOPIDOGREL 75 MG TABLET PO SCH (09:01)
[2018-03-26] MEDS: ACETAMINOPHEN 325 MG TABLET PO SCH ×4 (09:01→20:12)
[2018-03-26] MEDS: METFORMIN 1,000 MG TABLET PO SCH ×2 (09:01→17:16)
[2018-03-26] MEDS: CYANOCOBALAMIN (B-12) 500mcg TABLET PO SCH (09:02)
--- NOTE | 2018-03-26 09:26 | Orthopedic Progress Note ---
Date: Date: 03/26/18 Time: 923 Subjective/Severity of Illness: Jonathan is doing well. He is hopeful to hear from the State regarding discharge plans. No new complaints. Orthopedic Exam Vital signs: Temperature 95.9 F L 02/05/18 15:57 Pulse Rate 64 02/05/18 15:57 Respiratory Rate 18 02/05/18 15:57 Blood Pressure 149/69 H 02/05/18 15:57 Pulse Oximetry 97 02/05/18 15:57 Vital Signs Temp Pulse Resp BP Pulse Ox 02/16/18 07:34 97.2 F 61 16 165/73 H 96 02/16/18 04:00 97.4 F 59 L 16 164/72 H 92 02/16/18 00:00 97.2 F 65 16 140/71 H 94 02/15/18 20:00 96.7 F L 66 20 106/56 93 02/15/18 16:36 96.6 F L 65 16 144/67 H 95 02/15/18 12:00 96.5 F L 61 16 159/71 H 94 Intake and Output 02/15/18 02/16/18 02/16/18 22:59 06:59 14:59 Intake Total 240 / 240 Output Total 200 / 200 350 / 350 Balance -200 / -200 -350 / -350 240 / 240 Intake: Oral 240 / 240 Output: Urine 200 / 200 350 / 350 Other: Urine Appearance Clear Clear Urine Color Yellow Yellow Stool Color Brown Stool Consistency Soft Size of Bowel Movement Smear # Voids 1 Weight 229 lb 11.547 oz Patient Weight 02/17/18 06:59 Weight 229 lb 11.547 oz - Constitutional General Appearance: Present: alert, no acute distress, well developed, well nourished - Respiratory Exam Present: non-labored - Cardiovascular Exam Present: pedal pulses intact - Dressing Dressing: no drainage - Hip Exam right Hip Exam: Present: alignment normal - Integumentary Exam Present: pink, warm, dry - Neurological Exam Present: no deficits - Psychiatric Exam Present: alert - Labs Result Diagrams: 03/21/18 10:00 03/21/18 10:00 H & H 02/14/18 02/14/18 02/14/18 Range/Units 04:09 13:13 17:37 Hgb 8.7 L 9.8 L D 10.6 L (13.5-17.5) GM/DL Hct 27.9 L 31.5 L D (41-53) % 02/14/18 02/16/18 02/18/18 Range/Units 21:43 04:34 03:56 Hgb 10.9 L 10.7 L 10.8 L (13.5-17.5) GM/DL Hct 33.3 L 33.4 L (41-53) % 02/18/18 02/19/18 02/20/18 Range/Units 21:15 04:47 04:18 Hgb 9.3 L D 8.5 L 7.0 L D (13.5-17.5) GM/DL Hct 28.4 L D 26.5 L 21.9 L D (41-53) % 02/20/18 02/21/18 02/22/18 Range/Units 12:49 04:31 04:09 Hgb 7.9 L D 7.4 L 7.2 L (13.5-17.5) GM/DL Hct 23.2 L 22.7 L (41-53) % 02/23/18 02/24/18 02/25/18 Range/Units 03:57 04:12 04:11 Hgb 7.6 L 7.4 L 7.3 L (13.5-17.5) GM/DL Hct 23.6 L 23.0 L 23.2 L (41-53) % 02/26/18 03/03/18 03/08/18 Range/Units 03:58 04:03 04:49 Hgb 7.5 L 7.8 L 9.1 L (13.5-17.5) GM/DL Hct 23.8 L 25.0 L 29.4 L (41-53) % 03/21/18 Range/Units 10:00 Hgb 9.7 L (13.5-17.5) GM/DL Hct 30.1 L (41-53) % Orthopedic Assessment and Plan (1) Hip dislocation, right Status: Acute Qualifiers: Encounter type: initial encounter Qualified Code(s): S73.004A - Unspecified dislocation of right hip, initial encounter Problem Details: Recurrent, closed reduction in OR 02/04/18, 02/06/18, 02/12/18--> VAIBHAV 02/18/18 Assessment and Plan: Mr Foley was taken to the OR on 02/04/18, 02/06/18 & 02/12/18 for closed reduction of the right hip under anesthesia. 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 Continue hip precautions. Awaiting placement instructions. 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 Gaming Guardianship still pending, see CM notes for details. Wound consult- for pressure ulcers on heels. Current anti-coagulation protocol- Plavix 75mg daily. ASA 81mg. SCD's for added protection Dr. James managing medically. monitoring blood sugars PRN. PT/OT services to improve independent function. - Additional Diagnoses Atrial Fibrillation: rate controlled Diabetes: resume oral medications, other (Has been under good control.) CAD: no active chest pain Anemia: no intervention required Hospital Course Summary Disclaimer: The visit summary below is not to be considered part of the above Progress Note. 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 Psychiatric evaluation suggested that the patient is not competent to make his own medication decisions. Case management is working on obtaining a guardian for the patient for consent to do a hip revision. Patient remains at high risk for recurrent dislocation, especially if transferred to senior living as [facility] nursing staff is well educated on precautions. Continue with current cares. Continue wedge pillow and straight leg immobilizer to minimize risk. Encourage participation in therapies to work with him on precautions and ambulation. Continue with bowel motivation. Recheck labs in AM to monitor blood counts, electrolytes and renal function. 02/16/18 [place] - Covering for Dr Lewis Clinically doing well. Forgetful about hip precautions. Plavix on hold for upcoming surgical procedure. Will start SCD for DVT prevention. Blood pressure and blood sugars stable - continue with current treatment. Encourage participation in therapies to work with him on precautions and ambulation. Patient remains at high risk for recurrent dislocation, especially if transferred to senior living as [facility] nursing staff is well educated on precautions. Anticipate Dr Lewis's return tomorrow. 02/19/18 [place] - Covering for Dr Lewis Will decrease IVF to 50cc/hr - oral drive with decrease. Encourage nursing to give Dulcolax to help with bowel function. Urine output slow-will place Herman, start bladder retraining, and initiate Flomax. Nursing not able to place Herman as pt very resistant to that intervention. Will hold on Herman, but continue Flomax. Continue with post op pain control and therapy. Blood sugars and pressure stable with current regimen. Lab ordered for tomorrow. 02/20/18 [place] - covering for Dr Lewis Hgb down to 7.0; will type and cross for 1 unit PRBC. With weight trending up give Lasix post-transfusion. DC IVF. Oral intake starting to improve today. Start tracking I/O - if UO does not improve may need to restart IVF. Renal function is stable. Constipation - BM on 02/1802/21/[address] Lewis Hgb 7.4, s/p 1 unit PRBC transfusion yesterday (and 2 units on 02/14). Dressing is reportedly c/d/i without drainage. Check stool for occult blood. Iron level was low at 34 on on 02/11. Platelets also showing downward trend: Hold naproxen & ASA. He is hemodynamically stable. Weight continues to trend up; he is up 6 kg from date of admission. Anemia could be partly dilutional in nature. Unable to calculate I/O d/t urinary incontinence. He is maintaining saturations on room air. CXR yesterday was negative. Electrolytes/renal function stable. 02/22/18 Hgb 7.2, s/p 3 unit PRBC during hospital course and has been treated with IV iron. Oral iron initiated. Hemoccult pending. Anticipate probable need for additional blood tomorrow, type and screen in a.m. Iron level was low at 34 on on 02/11. Hold naproxen & ASA. May be hemolyzing blood previously transfused, bilirubin normal yesterday-Check haptoglobin/LDH with labs tomorrow. Weight down 3 kg from yesterday but remains positive through the hospitalization and hemoglobin down slightly despite negative fluid balance yesterday. Patient describe dysuria yesterday and urinary frequency which he indicated has been present for about 6 months, UA negative. Urine volumes improving since Flomax initiated. Constipation resolved. Limited activity with physical therapy; guardianship pending to permit placement. 02/23/18 Hgb 7.6-slightly improved today, s/p 3 unit PRBC during hospital course and (2 units preceded VAIBHAV) and has been treated with IV iron. Oral iron initiated. Hemoccult pending. Continue iron therapy; no clear evidence of hemolysis thus far. Continue to monitor hemoglobin daily until above 8. Last bowel movement at least 4-5 days ago-MiraLAX/Senokot doses increased; may require milk of magnesia or alternate stimulant. Much more interactive/appropriate responses today. Will discuss with case management tomorrow, may benefit from repeat psychiatric assessment of competency. 02/24/18 Hgb 7.4. Stool for occult blood is pending. B12 also pending. Continue iron. ASA and Naproxen are on hold. Constipation - last BM 02/21 per RN. Will give Dulcolax today if no results. Good oral intake. VSS; hemodynamically stable. 02/25/18 Hgb 7.3. Stool for occult blood is pending (had BM last night but Hemoccult was not sent). B12 low normal at 272 - methylmalonic acid level ordered; initiate oral B-12 supplementation. Haptoglobin pending. Continue iron. ASA and Naproxen are on hold. Continues on Plavix. VSS; hemodynamically stable. Largely asymptomatic in regards to persistent anemia. Weight is up 2 kg over the past 48 hours-Lasix to be given again today. 02/26/18 [place] - Covering for Dr. Lewis Hemoglobin largely stable at 7.5 this am. Pain controlled. Tolerating therapy. Blood pressure and blood sugars stable - continue treatments. Continue with supportive care, support, and therapy. Anticipate Dr Lewis's return tomorrow. 03/01/18 [place] - Covering for Dr. Lewis Medically doing well-BP, sugars, vitals stable. Emotional support for loss of spouse - very difficult transition for him. Continue with supportive care. Plan - 03/02/18: Covering for Dr. Lewis Medically doing well-BP, sugars, vitals stable. Emotional support for loss of spouse - very difficult transition for him. May consider psychiatric consult for acute grief and treatment recommendations. Continue with supportive care. Will recheck labs in AM to monitor blood counts, electrolytes and renal function. Case management assisting with discharge planning. Dr. Lewis to assume care on 03/03/18.
--- NOTE | 2018-03-26 14:47 | Neuropsych Progress Note ---
[facility] Subjective Date: 03/27/18 - Sujective/Severity of Illness Medications: Acetaminophen (Tylenol) 650 mg PO QID [facility] Last Admin: 03/26/18 13:47 Dose: 650 mg Amlodipine Besylate (Norvasc) 5 mg PO DAILY [facility] Last Admin: 03/26/18 09:00 Dose: 5 mg Aspirin (Ecotrin) 81 mg PO DAILY [facility] Last Admin: 02/21/18 08:33 Dose: 81 mg Bisacodyl (Dulcolax) 10 mg RECTALLY DAILY PRN PRN Reason: Constipation Last Admin: 02/24/18 17:00 Dose: 10 mg Carvedilol (Coreg) 6.25 mg PO BIDWM [facility] Last Admin: 03/26/18 09:00 Dose: 6.25 mg Clopidogrel Bisulfate (Plavix) 75 mg PO DAILY [facility] Last Admin: 03/26/18 09:01 Dose: 75 mg Cyanocobalamin (Vit. B-12) 1,000 mcg PO DAILY [facility] Last Admin: 03/26/18 09:02 Dose: 1,000 mcg Diphenhydramine HCl (Benadryl) 25 mg PO Q6H PRN PRN Reason: Itching Diphenhydramine HCl (Benadryl) 25 mg IVP Q6HR PRN PRN Reason: Itching Escitalopram Oxalate (Lexapro) 20 mg PO DAILY [facility] Last Admin: 03/26/18 09:00 Dose: 20 mg Ferrous Gluconate (Fergon) 324 mg PO WB [facility] Last Admin: 03/26/18 09:01 Dose: 324 mg Lorazepam (Ativan) 1 mg PO HS PRN PRN Reason: Sleep Magnesium Hydroxide (Mom) 30 ml PO DAILY PRN PRN Reason: Constipation Metformin HCl (Glucophage) 1,000 mg PO BIDWM [facility] Last Admin: 03/26/18 09:01 Dose: 1,000 mg Mirtazapine (Remeron) 7.5 mg PO HS [facility] Last Admin: 03/25/18 20:15 Dose: 7.5 mg Naproxen (Aleve (Naproxen) 220 Mg) 220 mg PO HS [facility] Last Admin: 02/20/18 20:05 Dose: 220 mg Ondansetron HCl (Zofran) 4 mg IVP Q4H PRN PRN Reason: Nausea &/or vomiting Oxybutynin Chloride (Ditropan Xl) 10 mg PO DAILY [facility] Last Admin: 03/26/18 09:02 Dose: 10 mg Polyethylene Glycol (Miralax) 17 gm PO BID PRN PRN Reason: Constipation Quetiapine Fumarate (Seroquel) 50 mg PO [facility] Last Admin: 03/25/18 20:16 Dose: 50 mg Ranitidine HCl (Zantac) 300 mg PO [facility] Last Admin: 03/25/18 20:15 Dose: 300 mg Senna/Docusate Sodium (Senna Plus Tablet) 2 tab PO BID PRN PRN Reason: Constipation /Stool softening Sodium Chloride (Normal Saline) 500 ml IV PRN PRN Last Admin: 02/20/18 08:48 Dose: 500 ml Sodium Chloride (Iv Flush) 10 ml IV PRN PRN PRN Reason: Flushing Last Admin: 03/07/18 20:13 Dose: 10 ml Sucralfate (Carafate) 1 gm PO [facility] Last Admin: 03/25/18 20:16 Dose: 1 gm Tamsulosin HCl (Flomax) 0.4 mg PO [facility] Last Admin: 03/25/18 20:15 Dose: 0.4 mg Tramadol HCl (Ultram) 50 - 100 mg PO Q6H PRN PRN Reason: Pain Last Admin: 03/03/18 17:00 Dose: 50 mg Subjective: Patient seen for f/u after starting mirtazapine. He has now been in the hospital for weeks awaiting guardianship and patient's recently . Patient is pleasant during interview and does report feeling that he is having a harder time due to the above 2 issues. He is future-oriented overall and is looking forward to life outside of the hospital. He particularly enjoys talking about his earlier life with his . Responded well to reassurance about the normal grief process. He denies any change in appetite or energy level. He does feel he is having difficulty sleeping due to waking up and thinking about his through the night. He denies SI, HI, or AVH. He is agreeable to increase in mirtazapine. Start Time: 11:00 Stop Time: 11:20 Mental Status Exam Vitals: Last Vital Signs Temp 97.9 F 03/26/18 07:21 Pulse 63 03/26/18 07:21 Resp 12 03/26/18 07:21 BP 149/69 H 03/26/18 07:21 Pulse Ox 98 03/26/18 07:21 Height: 1.88 m Weight: 99.6 kg - Mental Status Exam Muscle Strength/Tone: Normal Dressing: Casual Grooming: Fair Attitude: Cooperative Motor Activity: Retardation Eye Contact: Good Speech: Normal Volume: Normal Rhythm: Appropriate Rhythm Orientation: Oriented X4 Mood: Other ("sad") Affect: Sad Rate of Thoughts: Appropriate Rate Thought Organization: Organized, [place] Associations: Intact Abstract Reasoning: Poor abstract reasoning Computation: Appropriate for Education Level Thought Content: Ruminations Perception/Psychotic: Perception Normal Language: Other (Some decrease from baseline, not completely impaired) Fund of Knowledge: Other (decreased from premorbid baseline) Memory: Poor-recent Suicidal Ideation: Denies Homicidal Ideation: Denies Insight: Limited Judgement: Limited Impulse Control: Fair - Laboratory Result Diagrams: 03/21/18 10:00 03/21/18 10:00 Assessment and Plan (1) 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 Hospital Course Summary Disclaimer: The visit summary below is not to be considered part of the above Progress Note. 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 Psychiatric evaluation suggested that the patient is not competent to make his own medication decisions. Case management is working on obtaining a guardian for the patient for consent to do a hip revision. Patient remains at high risk for recurrent dislocation, especially if transferred to longterm as [facility] nursing staff is well educated on precautions. Continue with current cares. Continue wedge pillow and straight leg immobilizer to minimize risk. Encourage participation in therapies to work with him on precautions and ambulation. Continue with bowel motivation. Recheck labs in AM to monitor blood counts, electrolytes and renal function. 02/16/18 [place] - Covering for Dr Lewis Clinically doing well. Forgetful about hip precautions. Plavix on hold for upcoming surgical procedure. Will start SCD for DVT prevention. Blood pressure and blood sugars stable - continue with current treatment. Encourage participation in therapies to work with him on precautions and ambulation. Patient remains at high risk for recurrent dislocation, especially if transferred to longterm as [facility] nursing staff is well educated on precautions. Anticipate Dr Lewis's return tomorrow. 02/19/18 [place] - Covering for Dr Lewis Will decrease IVF to 50cc/hr - oral drive with decrease. Encourage nursing to give Dulcolax to help with bowel function. Urine output slow-will place Herman, start bladder retraining, and initiate Flomax. Nursing not able to place Herman as pt very resistant to that intervention. Will hold on Herman, but continue Flomax. Continue with post op pain control and therapy. Blood sugars and pressure stable with current regimen. Lab ordered for tomorrow. 02/20/18 [place] - covering for Dr Lewis Hgb down to 7.0; will type and cross for 1 unit PRBC. With weight trending up give Lasix post-transfusion. DC IVF. Oral intake starting to improve today. Start tracking I/O - if UO does not improve may need to restart IVF. Renal function is stable. Constipation - BM on 02/1802/21/[address] Lewis Hgb 7.4, s/p 1 unit PRBC transfusion yesterday (and 2 units on 02/14). Dressing is reportedly c/d/i without drainage. Check stool for occult blood. Iron level was low at 34 on on 02/11. Platelets also showing downward trend: Hold naproxen & ASA. He is hemodynamically stable. Weight continues to trend up; he is up 6 kg from date of admission. Anemia could be partly dilutional in nature. Unable to calculate I/O d/t urinary incontinence. He is maintaining saturations on room air. CXR yesterday was negative. Electrolytes/renal function stable. 02/22/18 Hgb 7.2, s/p 3 unit PRBC during hospital course and has been treated with IV iron. Oral iron initiated. Hemoccult pending. Anticipate probable need for additional blood tomorrow, type and screen in a.m. Iron level was low at 34 on on 02/11. Hold naproxen & ASA. May be hemolyzing blood previously transfused, bilirubin normal yesterday-Check haptoglobin/LDH with labs tomorrow. Weight down 3 kg from yesterday but remains positive through the hospitalization and hemoglobin down slightly despite negative fluid balance yesterday. Patient describe dysuria yesterday and urinary frequency which he indicated has been present for about 6 months, UA negative. Urine volumes improving since Flomax initiated. Constipation resolved. Limited activity with physical therapy; guardianship pending to permit placement. 02/23/18 Hgb 7.6-slightly improved today, s/p 3 unit PRBC during hospital course and (2 units preceded VAIBHAV) and has been treated with IV iron. Oral iron initiated. Hemoccult pending. Continue iron therapy; no clear evidence of hemolysis thus far. Continue to monitor hemoglobin daily until above 8. Last bowel movement at least 4-5 days ago-MiraLAX/Senokot doses increased; may require milk of magnesia or alternate stimulant. Much more interactive/appropriate responses today. Will discuss with case management tomorrow, may benefit from repeat psychiatric assessment of competency. 02/24/18 Hgb 7.4. Stool for occult blood is pending. B12 also pending. Continue iron. ASA and Naproxen are on hold. Constipation - last BM 02/21 per RN. Will give Dulcolax today if no results. Good oral intake. VSS; hemodynamically stable. 02/25/18 Hgb 7.3. Stool for occult blood is pending (had BM last night but Hemoccult was not sent). B12 low normal at 272 - methylmalonic acid level ordered; initiate oral B-12 supplementation. Haptoglobin pending. Continue iron. ASA and Naproxen are on hold. Continues on Plavix. VSS; hemodynamically stable. Largely asymptomatic in regards to persistent anemia. Weight is up 2 kg over the past 48 hours-Lasix to be given again today. 02/26/18 [place] - Covering for Dr. Lewis Hemoglobin largely stable at 7.5 this am. Pain controlled. Tolerating therapy. Blood pressure and blood sugars stable - continue treatments. Continue with supportive care, support, and therapy. Anticipate Dr Lewis's return tomorrow. 03/01/18 [place] - Covering for Dr. Lewis Medically doing well-BP, sugars, vitals stable. Emotional support for loss of spouse - very difficult transition for him. Continue with supportive care. Plan - 03/02/18: Covering for Dr. Lewis Medically doing well-BP, sugars, vitals stable. Emotional support for loss of spouse - very difficult transition for him. May consider psychiatric consult for acute grief and treatment recommendations. Continue with supportive care. Will recheck labs in AM to monitor blood counts, electrolytes and renal function. Case management assisting with discharge planning. Dr. Lewis to assume care on 03/03/18.
[2018-03-26] MEDS: SUCRALFATE 1 GM TABLET PO SCH (20:12)
[2018-03-26] MEDS: RANITIDINE 150 MG TABLET PO SCH (20:12)
[2018-03-26] MEDS: TAMSULOSIN 0.4 MG CAPSULE PO SCH (20:12)
[2018-03-26] MEDS: MIRTAZAPINE 15 MG TABLET PO SCH (20:12)
[2018-03-26] MEDS: QUETIAPINE 50 MG TABLET PO SCH (20:12)
[2018-03-27] MEDS: ACETAMINOPHEN 325 MG TABLET PO SCH ×4 (09:01→22:01)
[2018-03-27] MEDS: CYANOCOBALAMIN (B-12) 500mcg TABLET PO SCH (09:01)
[2018-03-27] MEDS: CLOPIDOGREL 75 MG TABLET PO SCH (09:01)
[2018-03-27] MEDS: METFORMIN 1,000 MG TABLET PO SCH ×2 (09:01→17:18)
[2018-03-27] MEDS: AMLODIPINE 5 MG TABLET PO SCH (09:02)
[2018-03-27] MEDS: CARVEDILOL 6.25 MG TABLET PO SCH ×2 (09:02→17:18)
[2018-03-27] MEDS: FERROUS GLUCONATE 324 MG TABLET PO SCH (09:02)
[2018-03-27] MEDS: ESCITALOPRAM 20 MG TABLET PO SCH (09:03)
--- NOTE | 2018-03-27 12:44 | Orthopedic Progress Note ---
Date: Date: 03/27/18 Time: 1243 Subjective/Severity of Illness: Jonathan is sitting up in the chair. No change, or new concerns. He is eager for discharge. CM notes- appears will be a couple more weeks before guardianship/conservator is obtained. Exam - Constitutional Vital Signs: Temperature 97.7 F 03/27/18 08:02 Pulse Rate 64 03/27/18 08:02 Respiratory Rate 16 03/27/18 08:02 Blood Pressure 147/61 H 03/27/18 08:02 Pulse Oximetry 99 03/27/18 08:02 General: cooperative, healthy appearing, no acute distress, well developed, well groomed Nutritional Appearance: well nourished Orientation: alert, oriented x3 - RLE General: normal to inspection Postoperative Appearance: surgical incision healing without complication, extremity compartments are soft and nontender, neurovascullary intact to extremities Neurological: no deficits, normal to light touch Vascular: dorsalis pedis pulse within normal limits - LLE General: normal to inspection Neurological: no deficits, normal to light touch Vascular: dorsalis pedis pulse within normal limits - Respiratory Respiratory Exam: non-labored - Cardiac Cardiovascular exam: pedal pulses intact - Abdominal GI/Abdominal Exam: soft - Labs Result Diagrams: 03/21/18 10:00 03/21/18 10:00 H & H 02/14/18 02/14/18 02/14/18 Range/Units 04:09 13:13 17:37 Hgb 8.7 L 9.8 L D 10.6 L (13.5-17.5) GM/DL Hct 27.9 L 31.5 L D (41-53) % 02/14/18 02/16/18 02/18/18 Range/Units 21:43 04:34 03:56 Hgb 10.9 L 10.7 L 10.8 L (13.5-17.5) GM/DL Hct 33.3 L 33.4 L (41-53) % 02/18/18 02/19/18 02/20/18 Range/Units 21:15 04:47 04:18 Hgb 9.3 L D 8.5 L 7.0 L D (13.5-17.5) GM/DL Hct 28.4 L D 26.5 L 21.9 L D (41-53) % 02/20/18 02/21/18 02/22/18 Range/Units 12:49 04:31 04:09 Hgb 7.9 L D 7.4 L 7.2 L (13.5-17.5) GM/DL Hct 23.2 L 22.7 L (41-53) % 02/23/18 02/24/18 02/25/18 Range/Units 03:57 04:12 04:11 Hgb 7.6 L 7.4 L 7.3 L (13.5-17.5) GM/DL Hct 23.6 L 23.0 L 23.2 L (41-53) % 02/26/18 03/03/18 03/08/18 Range/Units 03:58 04:03 04:49 Hgb 7.5 L 7.8 L 9.1 L (13.5-17.5) GM/DL Hct 23.8 L 25.0 L 29.4 L (41-53) % 03/21/18 Range/Units 10:00 Hgb 9.7 L (13.5-17.5) GM/DL Hct 30.1 L (41-53) % Orthopedic Assessment and Plan (1) Hip dislocation, right Status: Acute Qualifiers: Encounter type: initial encounter Qualified Code(s): S73.004A - Unspecified dislocation of right hip, initial encounter Problem Details: Recurrent, closed reduction in OR 02/04/18, 02/06/18, 02/12/18--> VAIBHAV 02/18/18 Assessment and Plan: Mr Foley was taken to the OR on 02/04/18, 02/06/18 & 02/12/18 for closed reduction of the right hip under anesthesia. 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 Continue hip precautions. 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 Gaming Guardianship/conservator still pending, see CM notes for details. Wound consult- managing pressure ulcers on bilateral heels. Dr. Tejada managing depression, Mirtazepine increased. Current anti-coagulation protocol- Plavix 75mg daily. ASA 81mg. SCD's for added protection Dr. James managing medically. monitoring blood sugars PRN. PT/OT services to improve independent function. - Additional Diagnoses Atrial Fibrillation: rate controlled Diabetes: resume oral medications, other (Has been under good control.) CAD: no active chest pain Anemia: no intervention required Hospital Course Summary Disclaimer: The visit summary below is not to be considered part of the above Progress Note. 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 Psychiatric evaluation suggested that the patient is not competent to make his own medication decisions. Case management is working on obtaining a guardian for the patient for consent to do a hip revision. Patient remains at high risk for recurrent dislocation, especially if transferred to [facility] as [facility] [place] staff is well educated on precautions. Continue with current cares. Continue wedge pillow and straight leg immobilizer to minimize risk. Encourage participation in therapies to work with him on precautions and ambulation. Continue with bowel motivation. Recheck labs in AM to monitor blood counts, electrolytes and renal function. 02/16/18 [place] - Covering for Dr Lewis Clinically doing well. Forgetful about hip precautions. Plavix on hold for upcoming surgical procedure. Will start SCD for DVT prevention. Blood pressure and blood sugars stable - continue with current treatment. Encourage participation in therapies to work with him on precautions and ambulation. Patient remains at high risk for recurrent dislocation, especially if transferred to [facility]ci as [facility] [place] nursing staff is well educated on precautions. Anticipate Dr Lewis's return tomorrow. 02/19/18 [place] - Covering for Dr Lewis Will decrease IVF to 50cc/hr - oral drive with decrease. Encourage nursing to give Dulcolax to help with bowel function. Urine output slow-will place Herman, start bladder retraining, and initiate Flomax. Nursing not able to place Herman as pt very resistant to that intervention. Will hold on Herman, but continue Flomax. Continue with post op pain control and therapy. Blood sugars and pressure stable with current regimen. Lab ordered for tomorrow. 02/20/18 [place] - covering for Dr Lewis Hgb down to 7.0; will type and cross for 1 unit PRBC. With weight trending up give Lasix post-transfusion. DC IVF. Oral intake starting to improve today. Start tracking I/O - if UO does not improve may need to restart IVF. Renal function is stable. Constipation - BM on 02/1802/21/[address] Lewis Hgb 7.4, s/p 1 unit PRBC transfusion yesterday (and 2 units on 02/14). Dressing is reportedly c/d/i without drainage. Check stool for occult blood. Iron level was low at 34 on on 02/11. Platelets also showing downward trend: Hold naproxen & ASA. He is hemodynamically stable. Weight continues to trend up; he is up 6 kg from date of admission. Anemia could be partly dilutional in nature. Unable to calculate I/O d/t urinary incontinence. He is maintaining saturations on room air. CXR yesterday was negative. Electrolytes/renal function stable. 02/22/18 Hgb 7.2, s/p 3 unit PRBC during hospital course and has been treated with IV iron. Oral iron initiated. Hemoccult pending. Anticipate probable need for additional blood tomorrow, type and screen in a.m. Iron level was low at 34 on on 02/11. Hold naproxen & ASA. May be hemolyzing blood previously transfused, bilirubin normal yesterday-Check haptoglobin/LDH with labs tomorrow. Weight down 3 kg from yesterday but remains positive through the hospitalization and hemoglobin down slightly despite negative fluid balance yesterday. Patient describe dysuria yesterday and urinary frequency which he indicated has been present for about 6 months, UA negative. Urine volumes improving since Flomax initiated. Constipation resolved. Limited activity with physical therapy; guardianship pending to permit placement. 02/23/18 Hgb 7.6-slightly improved today, s/p 3 unit PRBC during hospital course and (2 units preceded VAIBHAV) and has been treated with IV iron. Oral iron initiated. Hemoccult pending. Continue iron therapy; no clear evidence of hemolysis thus far. Continue to monitor hemoglobin daily until above 8. Last bowel movement at least 4-5 days ago-MiraLAX/Senokot doses increased; may require milk of magnesia or alternate stimulant. Much more interactive/appropriate responses today. Will discuss with case management tomorrow, may benefit from repeat psychiatric assessment of competency. 02/24/18 Hgb 7.4. Stool for occult blood is pending. B12 also pending. Continue iron. ASA and Naproxen are on hold. Constipation - last BM 02/21 per RN. Will give Dulcolax today if no results. Good oral intake. VSS; hemodynamically stable. 02/25/18 Hgb 7.3. Stool for occult blood is pending (had BM last night but Hemoccult was not sent). B12 low normal at 272 - methylmalonic acid level ordered; initiate oral B-12 supplementation. Haptoglobin pending. Continue iron. ASA and Naproxen are on hold. Continues on Plavix. VSS; hemodynamically stable. Largely asymptomatic in regards to persistent anemia. Weight is up 2 kg over the past 48 hours-Lasix to be given again today. 02/26/18 [place] - Covering for Dr. Lewis Hemoglobin largely stable at 7.5 this am. Pain controlled. Tolerating therapy. Blood pressure and blood sugars stable - continue treatments. Continue with supportive care, support, and therapy. Anticipate Dr Lewis's return tomorrow. 03/01/18 [place] - Covering for Dr. Lewis Medically doing well-BP, sugars, vitals stable. Emotional support for loss of spouse - very difficult transition for him. Continue with supportive care. Plan - 03/02/18: Covering for Dr. Lewis Medically doing well-BP, sugars, vitals stable. Emotional support for loss of spouse - very difficult transition for him. May consider psychiatric consult for acute grief and treatment recommendations. Continue with supportive care. Will recheck labs in AM to monitor blood counts, electrolytes and renal function. Case management assisting with discharge planning. Dr. Lewis to assume care on 03/03/18.
[2018-03-27] MEDS ORDERED: QUETIAPINE 50 MG TABLET PO ONE (17:22)
[2018-03-27] MEDS: MIRTAZAPINE 15 MG TABLET PO SCH (20:51)
[2018-03-27] MEDS: TAMSULOSIN 0.4 MG CAPSULE PO SCH (20:51)
[2018-03-27] MEDS: QUETIAPINE 50 MG TABLET PO SCH (20:51)
[2018-03-27] MEDS: SUCRALFATE 1 GM TABLET PO SCH (20:51)
[2018-03-27] MEDS: RANITIDINE 150 MG TABLET PO SCH (20:52)
[2018-03-28] MEDS: CLOPIDOGREL 75 MG TABLET PO SCH ×2 (07:58→12:52)
[2018-03-28] MEDS: CYANOCOBALAMIN (B-12) 500mcg TABLET PO SCH ×2 (07:58→12:52)
[2018-03-28] MEDS: ACETAMINOPHEN 325 MG TABLET PO SCH ×5 (07:58→20:07)
[2018-03-28] MEDS: METFORMIN 1,000 MG TABLET PO SCH ×2 (07:59→17:40)
[2018-03-28] MEDS: CARVEDILOL 6.25 MG TABLET PO SCH ×2 (07:59→17:40)
[2018-03-28] MEDS: ESCITALOPRAM 20 MG TABLET PO SCH (07:59)
[2018-03-28] MEDS: FERROUS GLUCONATE 324 MG TABLET PO SCH (07:59)
[2018-03-28] MEDS ORDERED: QUETIAPINE 50 MG TABLET PO PRN (09:09)
[2018-03-28] MEDS: AMLODIPINE 5 MG TABLET PO SCH (12:51)
--- NOTE | 2018-03-28 13:10 | Orthopedic Progress Note ---
Date: Date: 03/28/18 Time: 1307 Subjective/Severity of Illness: Jonathan is sitting up in the chair during rounds. He is agitated today, he has all his belongings packed and sitting on the bed. States he is "leaving today and waiting on his ride". Patient is still awaiting guardianship/conservator. Per nursing Dr. James also visited patient last night and this morning due to increase agitation and patient wanting to leave. He denies any CP, SOA, nausea. Exam - Constitutional Vital Signs: Temperature 95.6 F L 03/28/18 07:14 Pulse Rate 61 03/28/18 07:14 Respiratory Rate 16 03/28/18 07:14 Blood Pressure 151/70 H 03/28/18 07:14 Pulse Oximetry 96 03/28/18 07:14 General: healthy appearing, no acute distress, well developed, well groomed, other (agitated) Nutritional Appearance: well nourished Orientation: alert, oriented x3 - RLE Postoperative Appearance: surgical incision healing without complication, extremity compartments are soft and nontender, neurovascullary intact to extremities - Respiratory Respiratory Exam: non-labored - Cardiac Cardiovascular exam: pedal pulses intact - Abdominal GI/Abdominal Exam: soft - Wound Right Axilla Wound Bed Appearance: Slough - Labs Result Diagrams: 03/21/18 10:00 03/21/18 10:00 H & H 02/14/18 02/14/18 02/14/18 Range/Units 04:09 13:13 17:37 Hgb 8.7 L 9.8 L D 10.6 L (13.5-17.5) GM/DL Hct 27.9 L 31.5 L D (41-53) % 02/14/18 02/16/18 02/18/18 Range/Units 21:43 04:34 03:56 Hgb 10.9 L 10.7 L 10.8 L (13.5-17.5) GM/DL Hct 33.3 L 33.4 L (41-53) % 02/18/18 02/19/18 02/20/18 Range/Units 21:15 04:47 04:18 Hgb 9.3 L D 8.5 L 7.0 L D (13.5-17.5) GM/DL Hct 28.4 L D 26.5 L 21.9 L D (41-53) % 02/20/18 02/21/18 02/22/18 Range/Units 12:49 04:31 04:09 Hgb 7.9 L D 7.4 L 7.2 L (13.5-17.5) GM/DL Hct 23.2 L 22.7 L (41-53) % 02/23/18 02/24/18 02/25/18 Range/Units 03:57 04:12 04:11 Hgb 7.6 L 7.4 L 7.3 L (13.5-17.5) GM/DL Hct 23.6 L 23.0 L 23.2 L (41-53) % 02/26/18 03/03/18 03/08/18 Range/Units 03:58 04:03 04:49 Hgb 7.5 L 7.8 L 9.1 L (13.5-17.5) GM/DL Hct 23.8 L 25.0 L 29.4 L (41-53) % 03/21/18 Range/Units 10:00 Hgb 9.7 L (13.5-17.5) GM/DL Hct 30.1 L (41-53) % Orthopedic Assessment and Plan (1) Hip dislocation, right Status: Acute Qualifiers: Encounter type: initial encounter Qualified Code(s): S73.004A - Unspecified dislocation of right hip, initial encounter Problem Details: Recurrent, closed reduction in OR 02/04/18, 02/06/18, 02/12/18--> VAIBHAV 02/18/18 Assessment and Plan: Mr Foley was taken to the OR on 02/04/18, 02/06/18 & 02/12/18 for closed reduction of the right hip under anesthesia. 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 Continue hip precautions. 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 Gaming Guardianship/conservator still pending, see CM notes for details. Wound consult- managing pressure ulcers on bilateral heels. Dr. Tejada managing depression, Mirtazepine increased. Seroquel was added prn for agitation. Current anti-coagulation protocol- Plavix 75mg daily. ASA 81mg. SCD's for added protection Dr. James managing medically. monitoring blood sugars PRN. PT/OT services to improve independent function. - Additional Diagnoses Atrial Fibrillation: rate controlled Diabetes: resume oral medications, other (Has been under good control.) CAD: no active chest pain Anemia: no intervention required Hospital Course Summary Disclaimer: The visit summary below is not to be considered part of the above Progress Note. 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 Psychiatric evaluation suggested that the patient is not competent to make his own medication decisions. Case management is working on obtaining a guardian for the patient for consent to do a hip revision. Patient remains at high risk for recurrent dislocation, especially if [place] [facility] is well educated on precautions. Continue with current cares. Continue wedge pillow and straight leg immobilizer to minimize risk. Encourage participation in therapies to work with him on precautions and ambulation. Continue with bowel motivation. Recheck labs in AM to monitor blood counts, electrolytes and renal function. 02/16/18 [place] - Covering for Dr Lewis Clinically doing well. Forgetful about hip precautions. Plavix on hold for upcoming surgical procedure. Will start SCD for DVT prevention. Blood pressure and blood sugars stable - continue with current treatment. Encourage participation in therapies to work with him on precautions and ambulation. Patient remains at high risk for recurrent dislocation, especially if transferred to long[place]term [place] [facility] [place] is well educated on precautions. Anticipate Dr Lewis's return tomorrow. 02/19/18 [place] - Covering for Dr Lewis Will decrease IVF to 50cc/hr - oral drive with decrease. Encourage nursing to give Dulcolax to help with bowel function. Urine output slow-will place Herman, start bladder retraining, and initiate Flomax. Nursing not able to place Herman as pt very resistant to that intervention. Will hold on Herman, but continue Flomax. Continue with post op pain control and therapy. Blood sugars and pressure stable with current regimen. Lab ordered for tomorrow. 02/20/18 [place] - covering for Dr Lewis Hgb down to 7.0; will type and cross for 1 unit PRBC. With weight trending up give Lasix post-transfusion. DC IVF. Oral intake starting to improve today. Start tracking I/O - if UO does not improve may need to restart IVF. Renal function is stable. Constipation - BM on 02/1802/21/[address] Lewis Hgb 7.4, s/p 1 unit PRBC transfusion yesterday (and 2 units on 02/14). Dressing is reportedly c/d/i without drainage. Check stool for occult blood. Iron level was low at 34 on on 02/11. Platelets also showing downward trend: Hold naproxen & ASA. He is hemodynamically stable. Weight continues to trend up; he is up 6 kg from date of admission. Anemia could be partly dilutional in nature. Unable to calculate I/O d/t urinary incontinence. He is maintaining saturations on room air. CXR yesterday was negative. Electrolytes/renal function stable. 02/22/18 Hgb 7.2, s/p 3 unit PRBC during hospital course and has been treated with IV iron. Oral iron initiated. Hemoccult pending. Anticipate probable need for additional blood tomorrow, type and screen in a.m. Iron level was low at 34 on on 02/11. Hold naproxen & ASA. May be hemolyzing blood previously transfused, bilirubin normal yesterday-Check haptoglobin/LDH with labs tomorrow. Weight down 3 kg from yesterday but remains positive through the hospitalization and hemoglobin down slightly despite negative fluid balance yesterday. Patient describe dysuria yesterday and urinary frequency which he indicated has been present for about 6 months, UA negative. Urine volumes improving since Flomax initiated. Constipation resolved. Limited activity with physical therapy; guardianship pending to permit placement. 02/23/18 Hgb 7.6-slightly improved today, s/p 3 unit PRBC during hospital course and (2 units preceded VAIBHAV) and has been treated with IV iron. Oral iron initiated. Hemoccult pending. Continue iron therapy; no clear evidence of hemolysis thus far. Continue to monitor hemoglobin daily until above 8. Last bowel movement at least 4-5 days ago-MiraLAX/Senokot doses increased; may require milk of magnesia or alternate stimulant. Much more interactive/appropriate responses today. Will discuss with case management tomorrow, may benefit from repeat psychiatric assessment of competency. 02/24/18 Hgb 7.4. Stool for occult blood is pending. B12 also pending. Continue iron. ASA and Naproxen are on hold. Constipation - last BM 02/21 per RN. Will give Dulcolax today if no results. Good oral intake. VSS; hemodynamically stable. 02/25/18 Hgb 7.3. Stool for occult blood is pending (had BM last night but Hemoccult was not sent). B12 low normal at 272 - methylmalonic acid level ordered; initiate oral B-12 supplementation. Haptoglobin pending. Continue iron. ASA and Naproxen are on hold. Continues on Plavix. VSS; hemodynamically stable. Largely asymptomatic in regards to persistent anemia. Weight is up 2 kg over the past 48 hours-Lasix to be given again today. 02/26/18 [place] - Covering for Dr. Lewis Hemoglobin largely stable at 7.5 this am. Pain controlled. Tolerating therapy. Blood pressure and blood sugars stable - continue treatments. Continue with supportive care, support, and therapy. Anticipate Dr Lewis's return tomorrow. 03/01/18 [place] - Covering for Dr. Lewis Medically doing well-BP, sugars, vitals stable. Emotional support for loss of spouse - very difficult transition for him. Continue with supportive care. Plan - 03/02/18: Covering for Dr. Lewis Medically doing well-BP, sugars, vitals stable. Emotional support for loss of spouse - very difficult transition for him. May consider psychiatric consult for acute grief and treatment recommendations. Continue with supportive care. Will recheck labs in AM to monitor blood counts, electrolytes and renal function. Case management assisting with discharge planning. Dr. Lewis to assume care on 03/03/18.
[2018-03-28] MEDS: MIRTAZAPINE 15 MG TABLET PO SCH (20:07)
[2018-03-28] MEDS: SUCRALFATE 1 GM TABLET PO SCH (20:08)
[2018-03-28] MEDS: QUETIAPINE 50 MG TABLET PO SCH (20:08)
[2018-03-28] MEDS: RANITIDINE 150 MG TABLET PO SCH (20:08)
[2018-03-28] MEDS: TAMSULOSIN 0.4 MG CAPSULE PO SCH (20:08)
[2018-03-29] MEDS: METFORMIN 1,000 MG TABLET PO SCH ×2 (09:53→17:24)
[2018-03-29] MEDS: AMLODIPINE 5 MG TABLET PO SCH (09:53)
[2018-03-29] MEDS: FERROUS GLUCONATE 324 MG TABLET PO SCH (09:53)
[2018-03-29] MEDS: CARVEDILOL 6.25 MG TABLET PO SCH ×2 (09:53→17:24)
[2018-03-29] MEDS: CLOPIDOGREL 75 MG TABLET PO SCH (09:53)
[2018-03-29] MEDS: CYANOCOBALAMIN (B-12) 500mcg TABLET PO SCH (09:53)
[2018-03-29] MEDS: ESCITALOPRAM 20 MG TABLET PO SCH (09:54)
[2018-03-29] MEDS: ACETAMINOPHEN 325 MG TABLET PO SCH ×4 (09:54→21:49)
--- NOTE | 2018-03-29 15:10 | Progress Note ---
Progress Note: Attempted to see patient for psychiatric f/u but he was sleeping soundly at time of attempted interview. Will see on 03/30.
[2018-03-29] MEDS: RANITIDINE 150 MG TABLET PO SCH (21:49)
[2018-03-29] MEDS: TAMSULOSIN 0.4 MG CAPSULE PO SCH (21:49)
[2018-03-29] MEDS: MIRTAZAPINE 15 MG TABLET PO SCH (21:50)
[2018-03-29] MEDS: QUETIAPINE 50 MG TABLET PO SCH (21:50)
[2018-03-30] MEDS: SUCRALFATE 1 GM TABLET PO SCH ×2 (06:51→20:08)
[2018-03-30] MEDS: AMLODIPINE 5 MG TABLET PO SCH (09:12)
[2018-03-30] MEDS: ACETAMINOPHEN 325 MG TABLET PO SCH ×4 (09:12→20:08)
[2018-03-30] MEDS: FERROUS GLUCONATE 324 MG TABLET PO SCH (09:13)
[2018-03-30] MEDS: ESCITALOPRAM 20 MG TABLET PO SCH (09:13)
[2018-03-30] MEDS: CYANOCOBALAMIN (B-12) 500mcg TABLET PO SCH (09:13)
[2018-03-30] MEDS: METFORMIN 1,000 MG TABLET PO SCH ×2 (09:13→16:56)
[2018-03-30] MEDS: CARVEDILOL 6.25 MG TABLET PO SCH ×2 (09:13→16:57)
[2018-03-30] MEDS: CLOPIDOGREL 75 MG TABLET PO SCH (09:13)
[2018-03-30] MEDS: MIRTAZAPINE 15 MG TABLET PO SCH (20:07)
[2018-03-30] MEDS: RANITIDINE 150 MG TABLET PO SCH (20:07)
[2018-03-30] MEDS: TAMSULOSIN 0.4 MG CAPSULE PO SCH (20:08)
[2018-03-30] MEDS: QUETIAPINE 50 MG TABLET PO SCH (20:08)
--- NOTE | 2018-03-31 08:41 | XRay Report ---
Indication: PAIN PROCEDURE: XR hip RT min 2V: Encounter: Initial Comparison: February 21, 2018 Findings/ Impression: No acute fracture or dislocation. Unchanged appearance of the right total hip prosthesis. .
[2018-03-31] MEDS: METFORMIN 1,000 MG TABLET PO SCH ×2 (08:56→17:34)
[2018-03-31] MEDS: FERROUS GLUCONATE 324 MG TABLET PO SCH (08:56)
[2018-03-31] MEDS: AMLODIPINE 5 MG TABLET PO SCH (08:56)
[2018-03-31] MEDS: ACETAMINOPHEN 325 MG TABLET PO SCH ×4 (08:56→21:09)
[2018-03-31] MEDS: CARVEDILOL 6.25 MG TABLET PO SCH ×2 (08:56→17:34)
[2018-03-31] MEDS: CLOPIDOGREL 75 MG TABLET PO SCH (08:57)
[2018-03-31] MEDS: CYANOCOBALAMIN (B-12) 500mcg TABLET PO SCH (08:57)
[2018-03-31] MEDS: ESCITALOPRAM 20 MG TABLET PO SCH (08:58)
--- NOTE | 2018-03-31 20:54 | Neuropsych Progress Note ---
[facility] Subjective Date: 04/01/18 - Sujective/Severity of Illness Medications: Acetaminophen (Tylenol) 650 mg PO QID [facility] Last Admin: 03/31/18 17:34 Dose: 650 mg Amlodipine Besylate (Norvasc) 5 mg PO DAILY [facility] Last Admin: 03/31/18 08:56 Dose: 5 mg Aspirin (Ecotrin) 81 mg PO DAILY [facility] Last Admin: 02/21/18 08:33 Dose: 81 mg Bisacodyl (Dulcolax) 10 mg RECTALLY DAILY PRN PRN Reason: Constipation Last Admin: 02/24/18 17:00 Dose: 10 mg Carvedilol (Coreg) 6.25 mg PO BIDWM [facility] Last Admin: 03/31/18 17:34 Dose: 6.25 mg Clopidogrel Bisulfate (Plavix) 75 mg PO DAILY [facility] Last Admin: 03/31/18 08:57 Dose: 75 mg Cyanocobalamin (Vit. B-12) 1,000 mcg PO DAILY [facility] Last Admin: 03/31/18 08:57 Dose: 1,000 mcg Diphenhydramine HCl (Benadryl) 25 mg PO Q6H PRN PRN Reason: Itching Diphenhydramine HCl (Benadryl) 25 mg IVP Q6HR PRN PRN Reason: Itching Escitalopram Oxalate (Lexapro) 20 mg PO DAILY [facility] Last Admin: 03/31/18 08:58 Dose: 20 mg Ferrous Gluconate (Fergon) 324 mg PO WB [facility] Last Admin: 03/31/18 08:56 Dose: 324 mg Lorazepam (Ativan) 1 mg PO HS PRN PRN Reason: Sleep Magnesium Hydroxide (Mom) 30 ml PO DAILY PRN PRN Reason: Constipation Metformin HCl (Glucophage) 1,000 mg PO BIDWM [facility] Last Admin: 03/31/18 17:34 Dose: 1,000 mg Mirtazapine (Remeron) 15 mg PO HS [facility] Last Admin: 03/30/18 20:07 Dose: 15 mg Naproxen (Aleve (Naproxen) 220 Mg) 220 mg PO HS [facility] Last Admin: 02/20/18 20:05 Dose: 220 mg Ondansetron HCl (Zofran) 4 mg IVP Q4H PRN PRN Reason: Nausea &/or vomiting Oxybutynin Chloride (Ditropan Xl) 10 mg PO DAILY [facility] Last Admin: 03/31/18 08:58 Dose: 10 mg Polyethylene Glycol (Miralax) 17 gm PO BID PRN PRN Reason: Constipation Quetiapine Fumarate (Seroquel) 50 mg PO [facility] Last Admin: 03/30/18 20:08 Dose: 50 mg Quetiapine Fumarate (Seroquel) 50 mg PO Q6H PRN PRN Reason: Agitation Ranitidine HCl (Zantac) 300 mg PO [facility] Last Admin: 03/30/18 20:07 Dose: 300 mg Senna/Docusate Sodium (Senna Plus Tablet) 2 tab PO BID PRN PRN Reason: Constipation /Stool softening Sodium Chloride (Normal Saline) 500 ml IV PRN PRN Last Admin: 02/20/18 08:48 Dose: 500 ml Sodium Chloride (Iv Flush) 10 ml IV PRN PRN PRN Reason: Flushing Last Admin: 03/07/18 20:13 Dose: 10 ml Sucralfate (Carafate) 1 gm PO [facility] Last Admin: 03/30/18 20:08 Dose: 1 gm Tamsulosin HCl (Flomax) 0.4 mg PO [facility] Last Admin: 03/30/18 20:08 Dose: 0.4 mg Tramadol HCl (Ultram) 50 - 100 mg PO Q6H PRN PRN Reason: Pain Last Admin: 03/03/18 17:00 Dose: 50 mg Subjective: Patient seen for f/u after starting mirtazapine. He has now been in the hospital for weeks awaiting guardianship and patient's recently . Patient is pleasant during interview and does report feeling that he is having a harder time due to the above 2 issues. He thinks phone calls to his family would be helpful but reportedly was misusing the phone earlier in the day. He does have strained relationships with his family members. Responded well to reassurance about the normal grief process. He denies any change in appetite or energy level. He does feel he is having difficulty sleeping due to waking up and thinking about his through the night. He denies SI, HI, or AVH. He does not want to increase mirtazapine further at this time. Start Time: 19:00 Stop Time: 19:20 Mental Status Exam Vitals: Last Vital Signs Temp 97.6 F 07/02/18 00:05 Pulse 96 03/31/18 16:47 Resp 20 03/31/18 16:47 BP 167/88 H 03/31/18 16:47 Pulse Ox 93 03/31/18 16:47 Height: 1.88 m Weight: 102.6 kg - Mental Status Exam Muscle Strength/Tone: Normal Dressing: Casual Grooming: Fair Attitude: Cooperative Motor Activity: Retardation Eye Contact: Good Speech: Normal Volume: Normal Rhythm: Appropriate Rhythm Orientation: Oriented X4 Mood: Other ("sad") Rate of Thoughts: Appropriate Rate Thought Organization: Organized, [place] Associations: Intact Abstract Reasoning: Poor abstract reasoning Computation: Appropriate for Education Level Thought Content: Ruminations Perception/Psychotic: Perception Normal Language: Other (Some decrease from baseline, not completely impaired) Fund of Knowledge: Other (decreased from premorbid baseline) Memory: Poor-recent Suicidal Ideation: Denies Homicidal Ideation: Denies Insight: Limited Judgement: Limited Impulse Control: Fair - Laboratory Result Diagrams: 03/21/18 10:00 03/21/18 10:00 Assessment and Plan (1) Major neurocognitive disorder 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 Continue current care otherwise. May help to schedule daily phone calls with family. Hospital Course Summary Disclaimer: The visit summary below is not to be considered part of the above Progress Note. 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 Psychiatric evaluation suggested that the patient is not competent to make his own medication decisions. Case management is working on obtaining a guardian for the patient for consent to do a hip revision. Patient remains at high risk for recurrent dislocation, especially if transferred to retirement as [facility] nursing staff is well educated on precautions. Continue with current cares. Continue wedge pillow and straight leg immobilizer to minimize risk. Encourage participation in therapies to work with him on precautions and ambulation. Continue with bowel motivation. Recheck labs in AM to monitor blood counts, electrolytes and renal function. 02/16/18 [place] - Covering for Dr Lewis Clinically doing well. Forgetful about hip precautions. Plavix on hold for upcoming surgical procedure. Will start SCD for DVT prevention. Blood pressure and blood sugars stable - continue with current treatment. Encourage participation in therapies to work with him on precautions and ambulation. Patient remains at high risk for recurrent dislocation, especially if transferred to retirement as [facility] nursing staff is well educated on precautions. Anticipate Dr Lewis's return tomorrow. 02/19/18 [place] - Covering for Dr Lewis Will decrease IVF to 50cc/hr - oral drive with decrease. Encourage nursing to give Dulcolax to help with bowel function. Urine output slow-will place Herman, start bladder retraining, and initiate Flomax. Nursing not able to place Herman as pt very resistant to that intervention. Will hold on Herman, but continue Flomax. Continue with post op pain control and therapy. Blood sugars and pressure stable with current regimen. Lab ordered for tomorrow. 02/20/18 [place] - covering for Dr Lewis Hgb down to 7.0; will type and cross for 1 unit PRBC. With weight trending up give Lasix post-transfusion. DC IVF. Oral intake starting to improve today. Start tracking I/O - if UO does not improve may need to restart IVF. Renal function is stable. Constipation - BM on 02/1802/21/[address] Lewis Hgb 7.4, s/p 1 unit PRBC transfusion yesterday (and 2 units on 02/14). Dressing is reportedly c/d/i without drainage. Check stool for occult blood. Iron level was low at 34 on on 02/11. Platelets also showing downward trend: Hold naproxen & ASA. He is hemodynamically stable. Weight continues to trend up; he is up 6 kg from date of admission. Anemia could be partly dilutional in nature. Unable to calculate I/O d/t urinary incontinence. He is maintaining saturations on room air. CXR yesterday was negative. Electrolytes/renal function stable. 02/22/18 Hgb 7.2, s/p 3 unit PRBC during hospital course and has been treated with IV iron. Oral iron initiated. Hemoccult pending. Anticipate probable need for additional blood tomorrow, type and screen in a.m. Iron level was low at 34 on on 02/11. Hold naproxen & ASA. May be hemolyzing blood previously transfused, bilirubin normal yesterday-Check haptoglobin/LDH with labs tomorrow. Weight down 3 kg from yesterday but remains positive through the hospitalization and hemoglobin down slightly despite negative fluid balance yesterday. Patient describe dysuria yesterday and urinary frequency which he indicated has been present for about 6 months, UA negative. Urine volumes improving since Flomax initiated. Constipation resolved. Limited activity with physical therapy; guardianship pending to permit placement. 02/23/18 Hgb 7.6-slightly improved today, s/p 3 unit PRBC during hospital course and (2 units preceded VAIBHAV) and has been treated with IV iron. Oral iron initiated. Hemoccult pending. Continue iron therapy; no clear evidence of hemolysis thus far. Continue to monitor hemoglobin daily until above 8. Last bowel movement at least 4-5 days ago-MiraLAX/Senokot doses increased; may require milk of magnesia or alternate stimulant. Much more interactive/appropriate responses today. Will discuss with case management tomorrow, may benefit from repeat psychiatric assessment of competency. 02/24/18 Hgb 7.4. Stool for occult blood is pending. B12 also pending. Continue iron. ASA and Naproxen are on hold. Constipation - last BM 02/21 per RN. Will give Dulcolax today if no results. Good oral intake. VSS; hemodynamically stable. 02/25/18 Hgb 7.3. Stool for occult blood is pending (had BM last night but Hemoccult was not sent). B12 low normal at 272 - methylmalonic acid level ordered; initiate oral B-12 supplementation. Haptoglobin pending. Continue iron. ASA and Naproxen are on hold. Continues on Plavix. VSS; hemodynamically stable. Largely asymptomatic in regards to persistent anemia. Weight is up 2 kg over the past 48 hours-Lasix to be given again today. 02/26/18 [place] - Covering for Dr. Lewis Hemoglobin largely stable at 7.5 this am. Pain controlled. Tolerating therapy. Blood pressure and blood sugars stable - continue treatments. Continue with supportive care, support, and therapy. Anticipate Dr Lewis's return tomorrow. 03/01/18 [place] - Covering for Dr. Lewis Medically doing well-BP, sugars, vitals stable. Emotional support for loss of spouse - very difficult transition for him. Continue with supportive care. Plan - 03/02/18: Covering for Dr. Lewis Medically doing well-BP, sugars, vitals stable. Emotional support for loss of spouse - very difficult transition for him. May consider psychiatric consult for acute grief and treatment recommendations. Continue with supportive care. Will recheck labs in AM to monitor blood counts, electrolytes and renal function. Case management assisting with discharge planning. Dr. Lewis to assume care on 03/03/18.
[2018-03-31] MEDS: RANITIDINE 150 MG TABLET PO SCH (21:09)
[2018-03-31] MEDS: MIRTAZAPINE 15 MG TABLET PO SCH (21:09)
[2018-03-31] MEDS: QUETIAPINE 50 MG TABLET PO SCH (21:10)
[2018-03-31] MEDS: SUCRALFATE 1 GM TABLET PO SCH (21:10)
[2018-03-31] MEDS: TAMSULOSIN 0.4 MG CAPSULE PO SCH (21:10)
[2018-04-01] MEDS: ACETAMINOPHEN 325 MG TABLET PO SCH ×4 (09:03→21:29)
[2018-04-01] MEDS: FERROUS GLUCONATE 324 MG TABLET PO SCH (09:03)
[2018-04-01] MEDS: CLOPIDOGREL 75 MG TABLET PO SCH (09:03)
[2018-04-01] MEDS: CARVEDILOL 6.25 MG TABLET PO SCH ×2 (09:04→17:32)
[2018-04-01] MEDS: CYANOCOBALAMIN (B-12) 500mcg TABLET PO SCH (09:04)
[2018-04-01] MEDS: METFORMIN 1,000 MG TABLET PO SCH ×2 (09:04→17:32)
[2018-04-01] MEDS: AMLODIPINE 5 MG TABLET PO SCH (09:04)
[2018-04-01] MEDS: ESCITALOPRAM 20 MG TABLET PO SCH (09:04)
--- NOTE | 2018-04-01 11:49 | Orthopedic Progress Note ---
Date: Date: 04/01/18 Time: 1146 Subjective/Severity of Illness: Jonathan is sitting up in the chair for lunch when I visit. He denies any new concerns or complaints. Denies CP, SOA, nausea. Reports regular BMs. Exam - Constitutional Vital Signs: Temperature 96.5 F L 04/01/18 09:02 Pulse Rate 61 04/01/18 09:02 Respiratory Rate 18 04/01/18 09:02 Blood Pressure 155/72 H 04/01/18 09:02 Pulse Oximetry 95 04/01/18 09:02 General: healthy appearing, no acute distress, well developed, well groomed Nutritional Appearance: well nourished Orientation: alert, oriented x3 - Respiratory Respiratory Exam: non-labored - Cardiac Cardiovascular exam: pedal pulses intact - Abdominal GI/Abdominal Exam: soft - Labs Result Diagrams: 03/21/18 10:00 03/21/18 10:00 H & H 02/14/18 02/14/18 02/14/18 Range/Units 04:09 13:13 17:37 Hgb 8.7 L 9.8 L D 10.6 L (13.5-17.5) GM/DL Hct 27.9 L 31.5 L D (41-53) % 02/14/18 02/16/18 02/18/18 Range/Units 21:43 04:34 03:56 Hgb 10.9 L 10.7 L 10.8 L (13.5-17.5) GM/DL Hct 33.3 L 33.4 L (41-53) % 02/18/18 02/19/18 02/20/18 Range/Units 21:15 04:47 04:18 Hgb 9.3 L D 8.5 L 7.0 L D (13.5-17.5) GM/DL Hct 28.4 L D 26.5 L 21.9 L D (41-53) % 02/20/18 02/21/18 02/22/18 Range/Units 12:49 04:31 04:09 Hgb 7.9 L D 7.4 L 7.2 L (13.5-17.5) GM/DL Hct 23.2 L 22.7 L (41-53) % 02/23/18 02/24/18 02/25/18 Range/Units 03:57 04:12 04:11 Hgb 7.6 L 7.4 L 7.3 L (13.5-17.5) GM/DL Hct 23.6 L 23.0 L 23.2 L (41-53) % 02/26/1818 03/08/18 Range/Units 03:58 04:03 04:49 Hgb 7.5 L 7.8 L 9.1 L (13.5-17.5) GM/DL Hct 23.8 L 25.0 L 29.4 L (41-53) % 03/21/18 Range/Units 10:00 Hgb 9.7 L (13.5-17.5) GM/DL Hct 30.1 L (41-53) % Orthopedic Assessment and Plan (1) Hip dislocation, right Status: Acute Qualifiers: Encounter type: initial encounter Qualified Code(s): S73.004A - Unspecified dislocation of right hip, initial encounter Problem Details: Recurrent, closed reduction in OR 02/04/18, 02/06/18, 02/12/18--> VAIBHAV 02/18/18 Assessment and Plan: Mr Foley was taken to the OR on 02/04/18, 02/06/18 & 02/12/18 for closed reduction of the right hip under anesthesia. 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 Continue hip precautions. 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 Gaming Guardianship/conservator still pending, see CM notes for details. Wound consult- managing pressure ulcers on bilateral heels. Dr. Tejada managing depression. Current anti-coagulation protocol- Plavix 75mg daily. ASA 81mg. SCD's for added protection Dr. James managing medically. monitoring blood sugars PRN. PT/OT services to improve independent function. - Additional Diagnoses Atrial Fibrillation: rate controlled Diabetes: resume oral medications, other (Has been under good control.) CAD: no active chest pain Anemia: no intervention required Hospital Course Summary Disclaimer: The visit summary below is not to be considered part of the above Progress Note. 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 Psychiatric evaluation suggested that the patient is not competent to make his own medication decisions. Case management is working on obtaining a guardian for the patient for consent to do a hip revision. Patient remains at high risk for recurrent dislocation, especially if transferred to long term as [facility] nursing staff is well educated on precautions. Continue with current cares. Continue wedge pillow and straight leg immobilizer to minimize risk. Encourage participation in therapies to work with him on precautions and ambulation. Continue with bowel motivation. Recheck labs in AM to monitor blood counts, electrolytes and renal function. 02/16/18 [place] - Covering for Dr Lewis Clinically doing well. Forgetful about hip precautions. Plavix on hold for upcoming surgical procedure. Will start SCD for DVT prevention. Blood pressure and blood sugars stable - continue with current treatment. Encourage participation in therapies to work with him on precautions and ambulation. Patient remains at high risk for recurrent dislocation, especially if transferred to long term as [facility] nursing staff is well educated on precautions. Anticipate Dr Lewis's return tomorrow. 02/19/18 [place] - Covering for Dr Lewis Will decrease IVF to 50cc/hr - oral drive with decrease. Encourage nursing to give Dulcolax to help with bowel function. Urine output slow-will place Herman, start bladder retraining, and initiate Flomax. Nursing not able to place Herman as pt very resistant to that intervention. Will hold on Herman, but continue Flomax. Continue with post op pain control and therapy. Blood sugars and pressure stable with current regimen. Lab ordered for tomorrow. 02/20/18 [place] - covering for Dr Lewis Hgb down to 7.0; will type and cross for 1 unit PRBC. With weight trending up give Lasix post-transfusion. DC IVF. Oral intake starting to improve today. Start tracking I/O - if UO does not improve may need to restart IVF. Renal function is stable. Constipation - BM on 02/1802/21/[address] Lewis Hgb 7.4, s/p 1 unit PRBC transfusion yesterday (and 2 units on 02/14). Dressing is reportedly c/d/i without drainage. Check stool for occult blood. Iron level was low at 34 on on 02/11. Platelets also showing downward trend: Hold naproxen & ASA. He is hemodynamically stable. Weight continues to trend up; he is up 6 kg from date of admission. Anemia could be partly dilutional in nature. Unable to calculate I/O d/t urinary incontinence. He is maintaining saturations on room air. CXR yesterday was negative. Electrolytes/renal function stable. 02/22/18 Hgb 7.2, s/p 3 unit PRBC during hospital course and has been treated with IV iron. Oral iron initiated. Hemoccult pending. Anticipate probable need for additional blood tomorrow, type and screen in a.m. Iron level was low at 34 on on 02/11. Hold naproxen & ASA. May be hemolyzing blood previously transfused, bilirubin normal yesterday-Check haptoglobin/LDH with labs tomorrow. Weight down 3 kg from yesterday but remains positive through the hospitalization and hemoglobin down slightly despite negative fluid balance yesterday. Patient describe dysuria yesterday and urinary frequency which he indicated has been present for about 6 months, UA negative. Urine volumes improving since Flomax initiated. Constipation resolved. Limited activity with physical therapy; guardianship pending to permit placement. 02/23/18 Hgb 7.6-slightly improved today, s/p 3 unit PRBC during hospital course and (2 units preceded VAIBHAV) and has been treated with IV iron. Oral iron initiated. Hemoccult pending. Continue iron therapy; no clear evidence of hemolysis thus far. Continue to monitor hemoglobin daily until above 8. Last bowel movement at least 4-5 days ago-MiraLAX/Senokot doses increased; may require milk of magnesia or alternate stimulant. Much more interactive/appropriate responses today. Will discuss with case management tomorrow, may benefit from repeat psychiatric assessment of competency. 02/24/18 Hgb 7.4. Stool for occult blood is pending. B12 also pending. Continue iron. ASA and Naproxen are on hold. Constipation - last BM 02/21 per RN. Will give Dulcolax today if no results. Good oral intake. VSS; hemodynamically stable. 02/25/18 Hgb 7.3. Stool for occult blood is pending (had BM last night but Hemoccult was not sent). B12 low normal at 272 - methylmalonic acid level ordered; initiate oral B-12 supplementation. Haptoglobin pending. Continue iron. ASA and Naproxen are on hold. Continues on Plavix. VSS; hemodynamically stable. Largely asymptomatic in regards to persistent anemia. Weight is up 2 kg over the past 48 hours-Lasix to be given again today. 02/26/18 [place] - Covering for Dr. eLwis Hemoglobin largely stable at 7.5 this am. Pain controlled. Tolerating therapy. Blood pressure and blood sugars stable - continue treatments. Continue with supportive care, support, and therapy. Anticipate Dr Lewis's return tomorrow. 03/01/18 [place] - Covering for Dr. Lewis Medically doing well-BP, sugars, vitals stable. Emotional support for loss of spouse - very difficult transition for him. Continue with supportive care. Plan - 03/02/18: Covering for Dr. Lewis Medically doing well-BP, sugars, vitals stable. Emotional support for loss of spouse - very difficult transition for him. May consider psychiatric consult for acute grief and treatment recommendations. Continue with supportive care. Will recheck labs in AM to monitor blood counts, electrolytes and renal function. Case management assisting with discharge planning. Dr. Lewis to assume care on 03/03/18.
[2018-04-01] MEDS: MIRTAZAPINE 15 MG TABLET PO SCH (21:20)
[2018-04-01] MEDS: RANITIDINE 150 MG TABLET PO SCH (21:21)
[2018-04-01] MEDS: QUETIAPINE 50 MG TABLET PO SCH (21:21)
[2018-04-01] MEDS: SUCRALFATE 1 GM TABLET PO SCH (21:21)
[2018-04-01] MEDS: TAMSULOSIN 0.4 MG CAPSULE PO SCH (21:22)
[2018-04-02] MEDS: CARVEDILOL 6.25 MG TABLET PO SCH ×2 (09:37→17:20)
[2018-04-02] MEDS: CLOPIDOGREL 75 MG TABLET PO SCH (09:37)
[2018-04-02] MEDS: CYANOCOBALAMIN (B-12) 500mcg TABLET PO SCH (09:37)
[2018-04-02] MEDS: ESCITALOPRAM 20 MG TABLET PO SCH (09:38)
[2018-04-02] MEDS: AMLODIPINE 5 MG TABLET PO SCH (09:38)
[2018-04-02] MEDS: METFORMIN 1,000 MG TABLET PO SCH ×2 (09:38→17:20)
[2018-04-02] MEDS: ACETAMINOPHEN 325 MG TABLET PO SCH ×4 (09:38→20:51)
[2018-04-02] MEDS: FERROUS GLUCONATE 324 MG TABLET PO SCH (09:38)
[2018-04-02] MEDS: MIRTAZAPINE 15 MG TABLET PO SCH (20:52)
[2018-04-02] MEDS: QUETIAPINE 50 MG TABLET PO SCH (20:52)
[2018-04-02] MEDS: TAMSULOSIN 0.4 MG CAPSULE PO SCH (20:53)
[2018-04-02] MEDS: RANITIDINE 150 MG TABLET PO SCH (20:53)
[2018-04-02] MEDS: SUCRALFATE 1 GM TABLET PO SCH (20:53)
[2018-04-03] MEDS: CLOPIDOGREL 75 MG TABLET PO SCH (09:01)
[2018-04-03] MEDS: ACETAMINOPHEN 325 MG TABLET PO SCH ×4 (09:02→20:28)
[2018-04-03] MEDS: CYANOCOBALAMIN (B-12) 500mcg TABLET PO SCH (09:02)
[2018-04-03] MEDS: METFORMIN 1,000 MG TABLET PO SCH ×2 (09:02→17:54)
[2018-04-03] MEDS: FERROUS GLUCONATE 324 MG TABLET PO SCH (09:02)
[2018-04-03] MEDS: AMLODIPINE 5 MG TABLET PO SCH (09:03)
[2018-04-03] MEDS: ESCITALOPRAM 20 MG TABLET PO SCH (09:03)
[2018-04-03] MEDS: CARVEDILOL 6.25 MG TABLET PO SCH ×2 (09:03→17:54)
--- NOTE | 2018-04-03 14:03 | Orthopedic Progress Note ---
Date: Date: 04/03/18 Time: 1400 Subjective/Severity of Illness: Mr. Palafox is sitting up in the chair eating lunch. Has been doing well with right hip. Denies any concerns besides awaiting discharge placement. Denies CP, SOA, nausea, dizziness. Exam - Constitutional Vital Signs: Temperature 97.9 F 04/03/18 07:00 Pulse Rate 74 04/03/18 07:00 Respiratory Rate 20 04/03/18 07:00 Blood Pressure 162/75 H 04/03/18 07:00 Pulse Oximetry 96 04/03/18 07:00 General: healthy appearing, no acute distress, well developed, well groomed Nutritional Appearance: well nourished Orientation: alert, oriented x3 - RUE Neurological: no deficits Vascular: radial pulse within normal limits - LUE Neurological: no deficits Vascular: radial pulse within normal limits - RLE Postoperative Appearance: surgical incision healing without complication, extremity compartments are soft and nontender, neurovascullary intact to extremities Vascular: dorsalis pedis pulse within normal limits - LLE Neurological: no deficits Vascular: dorsalis pedis pulse within normal limits - Respiratory Respiratory Exam: non-labored - Cardiac Cardiovascular exam: pedal pulses intact - Abdominal GI/Abdominal Exam: soft - Wound Right Heel Wound Drainage Amount: Small Wound Drainage Description: Sanguineous Wound Drainage Odor: No Odor Wound Bed Appearance: Beefy Red Left Lateral Heel Wound Drainage Amount: None Wound Drainage Odor: No Odor Wound Bed Appearance: [place] Right Axilla Wound Drainage Amount: None Wound Drainage Odor: No Odor Wound Bed Appearance: Sl[place] - Labs Result Diagrams: 03/21/18 10:00 03/21/18 10:00 H & H 02/14/18 02/14/18 02/14/18 Range/Units 04:09 13:13 17:37 Hgb 8.7 L 9.8 L D 10.6 L (13.5-17.5) GM/DL Hct 27.9 L 31.5 L D (41-53) % 02/14/18 02/16/18 02/18/18 Range/Units 21:43 04:34 03:56 Hgb 10.9 L 10.7 L 10.8 L (13.5-17.5) GM/DL Hct 33.3 L 33.4 L (41-53) % 02/18/18 02/19/18 02/20/18 Range/Units 21:15 04:47 04:18 Hgb 9.3 L D 8.5 L 7.0 L D (13.5-17.5) GM/DL Hct 28.4 L D 26.5 L 21.9 L D (41-53) % 02/20/18 02/21/18 02/22/18 Range/Units 12:49 04:31 04:09 Hgb 7.9 L D 7.4 L 7.2 L (13.5-17.5) GM/DL Hct 23.2 L 22.7 L (41-53) % 02/23/18 02/24/18 02/25/18 Range/Units 03:57 04:12 04:11 Hgb 7.6 L 7.4 L 7.3 L (13.5-17.5) GM/DL Hct 23.6 L 23.0 L 23.2 L (41-53) % 02/26/18 03/03/18 03/08/18 Range/Units 03:58 04:03 04:49 Hgb 7.5 L 7.8 L 9.1 L (13.5-17.5) GM/DL Hct 23.8 L 25.0 L 29.4 L (41-53) % 03/21/18 Range/Units 10:00 Hgb 9.7 L (13.5-17.5) GM/DL Hct 30.1 L (41-53) % Orthopedic Assessment and Plan (1) Hip dislocation, right Status: Acute Qualifiers: Encounter type: initial encounter Qualified Code(s): S73.004A - Unspecified dislocation of right hip, initial encounter Problem Details: Recurrent, closed reduction in OR 02/04/18, 02/06/18, 02/12/18--> VAIBHAV 02/18/18 Assessment and Plan: Mr Foley was taken to the OR on 02/04/18, 02/06/18 & 02/12/18 for closed reduction of the right hip under anesthesia. 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 Continue hip precautions. 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 Amberly Guardianship/conservator still pending, see CM notes for details. Wound consult- managing pressure ulcers on bilateral heels. Dr. Tejada managing depression. Current anti-coagulation protocol- Plavix 75mg daily. ASA 81mg. SCD's for added protection Dr. James managing medically. monitoring blood sugars PRN. PT/OT services to improve independent function. - Additional Diagnoses Atrial Fibrillation: rate controlled Diabetes: resume oral medications, other (Has been under good control.) CAD: no active chest pain Anemia: no intervention required Hospital Course Summary Disclaimer: The visit summary below is not to be considered part of the above Progress Note. 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 Psychiatric evaluation suggested that the patient is not competent to make his own medication decisions. Case management is working on obtaining a guardian for the patient for consent to do a hip revision. Patient remains at high risk for recurrent dislocation, especially [place] [facility] well educated on precautions. Continue with current cares. Continue wedge pillow and straight leg immobilizer to minimize risk. Encourage participation in therapies to work with him on precautions and ambulation. Continue with bowel motivation. Recheck labs in AM to monitor blood counts, electrolytes and renal function. 02/16/18 [place] - Covering for Dr Lewis Clinically doing well. Forgetful about hip precautions. Plavix on hold for upcoming surgical procedure. Will start SCD for DVT prevention. Blood pressure and blood sugars stable - continue with current treatment. Encourage participation in therapies to work with him on precautions and ambulation. Patient remains at high risk for recurrent dislocation, especially if [place] [facility] is well educated on precautions. Anticipate Dr Lewis's return tomorrow. 02/19/18 [place] - Covering for Dr Lewis Will decrease IVF to 50cc/hr - oral drive with decrease. Encourage nursing to give Dulcolax to help with bowel function. Urine output slow-will place Herman, start bladder retraining, and initiate Flomax. Nursing not able to place Herman as pt very resistant to that intervention. Will hold on Herman, but continue Flomax. Continue with post op pain control and therapy. Blood sugars and pressure stable with current regimen. Lab ordered for tomorrow. 02/20/18 [place] - covering for Dr Lewis Hgb down to 7.0; will type and cross for 1 unit PRBC. With weight trending up give Lasix post-transfusion. DC IVF. Oral intake starting to improve today. Start tracking I/O - if UO does not improve may need to restart IVF. Renal function is stable. Constipation - BM on 02/1802/21/[address] Lewis Hgb 7.4, s/p 1 unit PRBC transfusion yesterday (and 2 units on 02/14). Dressing is reportedly c/d/i without drainage. Check stool for occult blood. Iron level was low at 34 on on 02/11. Platelets also showing downward trend: Hold naproxen & ASA. He is hemodynamically stable. Weight continues to trend up; he is up 6 kg from date of admission. Anemia could be partly dilutional in nature. Unable to calculate I/O d/t urinary incontinence. He is maintaining saturations on room air. CXR yesterday was negative. Electrolytes/renal function stable. 02/22/18 Hgb 7.2, s/p 3 unit PRBC during hospital course and has been treated with IV iron. Oral iron initiated. Hemoccult pending. Anticipate probable need for additional blood tomorrow, type and screen in a.m. Iron level was low at 34 on on 02/11. Hold naproxen & ASA. May be hemolyzing blood previously transfused, bilirubin normal yesterday-Check haptoglobin/LDH with labs tomorrow. Weight down 3 kg from yesterday but remains positive through the hospitalization and hemoglobin down slightly despite negative fluid balance yesterday. Patient describe dysuria yesterday and urinary frequency which he indicated has been present for about 6 months, UA negative. Urine volumes improving since Flomax initiated. Constipation resolved. Limited activity with physical therapy; guardianship pending to permit placement. 02/23/18 Hgb 7.6-slightly improved today, s/p 3 unit PRBC during hospital course and (2 units preceded VAIBHAV) and has been treated with IV iron. Oral iron initiated. Hemoccult pending. Continue iron therapy; no clear evidence of hemolysis thus far. Continue to monitor hemoglobin daily until above 8. Last bowel movement at least 4-5 days ago-MiraLAX/Senokot doses increased; may require milk of magnesia or alternate stimulant. Much more interactive/appropriate responses today. Will discuss with case management tomorrow, may benefit from repeat psychiatric assessment of competency. 02/24/18 Hgb 7.4. Stool for occult blood is pending. B12 also pending. Continue iron. ASA and Naproxen are on hold. Constipation - last BM 02/21 per RN. Will give Dulcolax today if no results. Good oral intake. VSS; hemodynamically stable. 02/25/18 Hgb 7.3. Stool for occult blood is pending (had BM last night but Hemoccult was not sent). B12 low normal at 272 - methylmalonic acid level ordered; initiate oral B-12 supplementation. Haptoglobin pending. Continue iron. ASA and Naproxen are on hold. Continues on Plavix. VSS; hemodynamically stable. Largely asymptomatic in regards to persistent anemia. Weight is up 2 kg over the past 48 hours-Lasix to be given again today. 02/26/18 [place] - Covering for Dr. Lewis Hemoglobin largely stable at 7.5 this am. Pain controlled. Tolerating therapy. Blood pressure and blood sugars stable - continue treatments. Continue with supportive care, support, and therapy. Anticipate Dr Lewis's return tomorrow. 03/01/18 [place] - Covering for Dr. Lewis Medically doing well-BP, sugars, vitals stable. Emotional support for loss of spouse - very difficult transition for him. Continue with supportive care. Plan - 03/02/18: Covering for Dr. Lewis Medically doing well-BP, sugars, vitals stable. Emotional support for loss of spouse - very difficult transition for him. May consider psychiatric consult for acute grief and treatment recommendations. Continue with supportive care. Will recheck labs in AM to monitor blood counts, electrolytes and renal function. Case management assisting with discharge planning. Dr. Lewis to assume care on 03/03/18.
[2018-04-03] MEDS: RANITIDINE 150 MG TABLET PO SCH (20:28)
[2018-04-03] MEDS: QUETIAPINE 50 MG TABLET PO SCH (20:28)
[2018-04-03] MEDS: SUCRALFATE 1 GM TABLET PO SCH (20:28)
[2018-04-03] MEDS: MIRTAZAPINE 15 MG TABLET PO SCH (20:29)
[2018-04-03] MEDS: TAMSULOSIN 0.4 MG CAPSULE PO SCH (20:29)
[2018-04-04] MEDS: METFORMIN 1,000 MG TABLET PO SCH ×2 (09:05→17:10)
[2018-04-04] MEDS: FERROUS GLUCONATE 324 MG TABLET PO SCH (09:06)
[2018-04-04] MEDS: CYANOCOBALAMIN (B-12) 500mcg TABLET PO SCH (09:06)
[2018-04-04] MEDS: ESCITALOPRAM 20 MG TABLET PO SCH (09:06)
[2018-04-04] MEDS: CLOPIDOGREL 75 MG TABLET PO SCH (09:06)
[2018-04-04] MEDS: ACETAMINOPHEN 325 MG TABLET PO SCH ×4 (09:06→20:55)
[2018-04-04] MEDS: CARVEDILOL 6.25 MG TABLET PO SCH ×2 (09:07→17:11)
[2018-04-04] MEDS: AMLODIPINE 5 MG TABLET PO SCH (09:29)
[2018-04-04] MEDS: TAMSULOSIN 0.4 MG CAPSULE PO SCH (20:55)
[2018-04-04] MEDS: MIRTAZAPINE 15 MG TABLET PO SCH (20:55)
[2018-04-04] MEDS: QUETIAPINE 50 MG TABLET PO SCH (20:56)
[2018-04-04] MEDS: RANITIDINE 150 MG TABLET PO SCH (20:56)
[2018-04-04] MEDS: SUCRALFATE 1 GM TABLET PO SCH (20:56)
[2018-04-05] MEDS: ACETAMINOPHEN 325 MG TABLET PO SCH ×4 (08:56→21:51)
[2018-04-05] MEDS: CYANOCOBALAMIN (B-12) 500mcg TABLET PO SCH (08:57)
[2018-04-05] MEDS: CLOPIDOGREL 75 MG TABLET PO SCH (08:57)
[2018-04-05] MEDS: AMLODIPINE 5 MG TABLET PO SCH (08:57)
[2018-04-05] MEDS: CARVEDILOL 6.25 MG TABLET PO SCH ×2 (08:57→17:23)
[2018-04-05] MEDS: ESCITALOPRAM 20 MG TABLET PO SCH (08:57)
[2018-04-05] MEDS: FERROUS GLUCONATE 324 MG TABLET PO SCH (08:58)
[2018-04-05] MEDS: METFORMIN 1,000 MG TABLET PO SCH ×2 (08:58→17:23)
--- NOTE | 2018-04-05 10:31 | Orthopedic Progress Note ---
Date: Date: 04/05/18 Time: 1028 Subjective/Severity of Illness: Mr. Palafox is sitting up in the chair this morning. Has been doing well. He denies any new complaints or concerns. Exam - Constitutional Vital Signs: Temperature 97.4 F 04/05/18 09:23 Pulse Rate 67 04/05/18 09:23 Respiratory Rate 16 04/05/18 09:23 Blood Pressure 122/67 04/05/18 09:23 Pulse Oximetry 93 04/05/18 09:23 General: healthy appearing, no acute distress, well developed, well groomed Nutritional Appearance: well nourished Orientation: alert, oriented x3 - Psych Mood: normal Attitude: cooperative - RUE Vascular: radial pulse within normal limits - LUE Vascular: radial pulse within normal limits - RLE Postoperative Appearance: surgical incision healing without complication, extremity compartments are soft and nontender, neurovascullary intact to extremities - LLE Neurological: no deficits Vascular: dorsalis pedis pulse within normal limits - Respiratory Respiratory Exam: non-labored - Cardiac Cardiovascular exam: pedal pulses intact - Abdominal GI/Abdominal Exam: soft - Labs Result Diagrams: 03/21/18 10:00 03/21/18 10:00 H & H 02/14/18 02/14/18 02/14/18 Range/Units 04:09 13:13 17:37 Hgb 8.7 L 9.8 L D 10.6 L (13.5-17.5) GM/DL Hct 27.9 L 31.5 L D (41-53) % 02/14/18 02/16/18 02/18/18 Range/Units 21:43 04:34 03:56 Hgb 10.9 L 10.7 L 10.8 L (13.5-17.5) GM/DL Hct 33.3 L 33.4 L (41-53) % 02/18/18 02/19/18 02/20/18 Range/Units 21:15 04:47 04:18 Hgb 9.3 L D 8.5 L 7.0 L D (13.5-17.5) GM/DL Hct 28.4 L D 26.5 L 21.9 L D (41-53) % 02/20/18 02/21/18 02/22/18 Range/Units 12:49 04:31 04:09 Hgb 7.9 L D 7.4 L 7.2 L (13.5-17.5) GM/DL Hct 23.2 L 22.7 L (41-53) % 02/23/18 02/24/18 02/25/18 Range/Units 03:57 04:12 04:11 Hgb 7.6 L 7.4 L 7.3 L (13.5-17.5) GM/DL Hct 23.6 L 23.0 L 23.2 L (41-53) % 02/26/18 03/03/18 03/08/18 Range/Units 03:58 04:03 04:49 Hgb 7.5 L 7.8 L 9.1 L (13.5-17.5) GM/DL Hct 23.8 L 25.0 L 29.4 L (41-53) % 03/21/18 Range/Units 10:00 Hgb 9.7 L (13.5-17.5) GM/DL Hct 30.1 L (41-53) % Orthopedic Assessment and Plan (1) Hip dislocation, right Status: Acute Qualifiers: Encounter type: initial encounter Qualified Code(s): S73.004A - Unspecified dislocation of right hip, initial encounter Problem Details: Recurrent, closed reduction in OR 02/04/18, 02/06/18, 02/12/18--> VAIBHAV 02/18/18 Assessment and Plan: Mr Foley was taken to the OR on 02/04/18, 02/06/18 & 02/12/18 for closed reduction of the right hip under anesthesia. 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 Continue hip precautions. 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 Gaming Guardianship/conservator still pending, see CM notes for details. Wound consult- managing pressure ulcers on bilateral heels. Dr. Tejada managing depression. Current anti-coagulation protocol- Plavix 75mg daily. ASA 81mg. SCD's for added protection Dr. James managing medically. monitoring blood sugars PRN. PT/OT services to improve independent function. - Additional Diagnoses Atrial Fibrillation: rate controlled Diabetes: resume oral medications, other (Has been under good control.) CAD: no active chest pain Anemia: no intervention required Hospital Course Summary Disclaimer: The visit summary below is not to be considered part of the above Progress Note. 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 Psychiatric evaluation suggested that the patient is not competent to make his own medication decisions. Case management is working on obtaining a guardian for the patient for consent to do a hip revision. Patient remains at high risk for recurrent dislocation, especially if [place] [facility] [place] [facility] [place] staff is well educated on precautions. Continue with current cares. Continue wedge pillow and straight leg immobilizer to minimize risk. Encourage participation in therapies to work with him on precautions and ambulation. Continue with bowel motivation. Recheck labs in AM to monitor blood counts, electrolytes and renal function. 02/16/18 [place] - Covering for Dr Lewis Clinically doing well. Forgetful about hip precautions. Plavix on hold for upcoming surgical procedure. Will start SCD for DVT prevention. Blood pressure and blood sugars stable - continue with current treatment. Encourage participation in therapies to work with him on precautions and ambulation. Patient remains at high risk for recurrent dislocation, especially if transferred [place] [facility] [place] [facility] [place] staff is well educated on precautions. Anticipate Dr Lewis's return tomorrow. 02/19/18 [place] - Covering for Dr Lewis Will decrease IVF to 50cc/hr - oral drive with decrease. Encourage nursing to give Dulcolax to help with bowel function. Urine output slow-will place Herman, start bladder retraining, and initiate Flomax. Nursing not able to place Herman as pt very resistant to that intervention. Will hold on Herman, but continue Flomax. Continue with post op pain control and therapy. Blood sugars and pressure stable with current regimen. Lab ordered for tomorrow. 02/20/18 [place] - covering for Dr Lewis Hgb down to 7.0; will type and cross for 1 unit PRBC. With weight trending up give Lasix post-transfusion. DC IVF. Oral intake starting to improve today. Start tracking I/O - if UO does not improve may need to restart IVF. Renal function is stable. Constipation - BM on 02/1802/21/[address] Lewis Hgb 7.4, s/p 1 unit PRBC transfusion yesterday (and 2 units on 02/14). Dressing is reportedly c/d/i without drainage. Check stool for occult blood. Iron level was low at 34 on on 02/11. Platelets also showing downward trend: Hold naproxen & ASA. He is hemodynamically stable. Weight continues to trend up; he is up 6 kg from date of admission. Anemia could be partly dilutional in nature. Unable to calculate I/O d/t urinary incontinence. He is maintaining saturations on room air. CXR yesterday was negative. Electrolytes/renal function stable. 02/22/18 Hgb 7.2, s/p 3 unit PRBC during hospital course and has been treated with IV iron. Oral iron initiated. Hemoccult pending. Anticipate probable need for additional blood tomorrow, type and screen in a.m. Iron level was low at 34 on on 02/11. Hold naproxen & ASA. May be hemolyzing blood previously transfused, bilirubin normal yesterday-Check haptoglobin/LDH with labs tomorrow. Weight down 3 kg from yesterday but remains positive through the hospitalization and hemoglobin down slightly despite negative fluid balance yesterday. Patient describe dysuria yesterday and urinary frequency which he indicated has been present for about 6 months, UA negative. Urine volumes improving since Flomax initiated. Constipation resolved. Limited activity with physical therapy; guardianship pending to permit placement. 02/23/18 Hgb 7.6-slightly improved today, s/p 3 unit PRBC during hospital course and (2 units preceded VAIBHAV) and has been treated with IV iron. Oral iron initiated. Hemoccult pending. Continue iron therapy; no clear evidence of hemolysis thus far. Continue to monitor hemoglobin daily until above 8. Last bowel movement at least 4-5 days ago-MiraLAX/Senokot doses increased; may require milk of magnesia or alternate stimulant. Much more interactive/appropriate responses today. Will discuss with case management tomorrow, may benefit from repeat psychiatric assessment of competency. 02/24/18 Hgb 7.4. Stool for occult blood is pending. B12 also pending. Continue iron. ASA and Naproxen are on hold. Constipation - last BM 02/21 per RN. Will give Dulcolax today if no results. Good oral intake. VSS; hemodynamically stable. 02/25/18 Hgb 7.3. Stool for occult blood is pending (had BM last night but Hemoccult was not sent). B12 low normal at 272 - methylmalonic acid level ordered; initiate oral B-12 supplementation. Haptoglobin pending. Continue iron. ASA and Naproxen are on hold. Continues on Plavix. VSS; hemodynamically stable. Largely asymptomatic in regards to persistent anemia. Weight is up 2 kg over the past 48 hours-Lasix to be given again today. 02/26/18 [place] - Covering for Dr. Lewis Hemoglobin largely stable at 7.5 this am. Pain controlled. Tolerating therapy. Blood pressure and blood sugars stable - continue treatments. Continue with supportive care, support, and therapy. Anticipate Dr Lewis's return tomorrow. 03/01/18 [place] - Covering for Dr. Lewis Medically doing well-BP, sugars, vitals stable. Emotional support for loss of spouse - very difficult transition for him. Continue with supportive care. Plan - 03/02/18: Covering for Dr. Lewis Medically doing well-BP, sugars, vitals stable. Emotional support for loss of spouse - very difficult transition for him. May consider psychiatric consult for acute grief and treatment recommendations. Continue with supportive care. Will recheck labs in AM to monitor blood counts, electrolytes and renal function. Case management assisting with discharge planning. Dr. Lewis to assume care on 03/03/18.
[2018-04-05] MEDS: QUETIAPINE 50 MG TABLET PO SCH (21:51)
[2018-04-05] MEDS: MIRTAZAPINE 15 MG TABLET PO SCH (21:51)
[2018-04-05] MEDS: SUCRALFATE 1 GM TABLET PO SCH (21:51)
[2018-04-05] MEDS: RANITIDINE 150 MG TABLET PO SCH (21:52)
[2018-04-05] MEDS: TAMSULOSIN 0.4 MG CAPSULE PO SCH (21:52)
--- NOTE | 2018-04-06 08:57 | Orthopedic Progress Note ---
Date: Date: 04/06/18 Time: 855 Subjective/Severity of Illness: Jonathan is sitting up in bed this morning. Pleasant this morning, denies any new concerns. Reports BMs, denies CP, SOA, nausea. Has been ambulating with walker. Exam - Constitutional Vital Signs: Temperature 95.9 F L 04/06/18 00:47 Pulse Rate 65 04/06/18 00:47 Respiratory Rate 18 04/06/18 00:47 Blood Pressure 129/58 04/06/18 00:47 Pulse Oximetry 95 04/06/18 00:47 General: healthy appearing, no acute distress, well developed, well groomed Nutritional Appearance: well nourished Orientation: alert, oriented x3 - RUE Vascular: radial pulse within normal limits - LUE Vascular: radial pulse within normal limits - RLE Postoperative Appearance: surgical incision healing without complication, extremity compartments are soft and nontender, neurovascullary intact to extremities Neurological: no deficits Vascular: dorsalis pedis pulse within normal limits - LLE Neurological: no deficits Vascular: dorsalis pedis pulse within normal limits - Respiratory Respiratory Exam: CTA bilaterally, non-labored - Cardiac Cardiovascular exam: Regular Rate/Rhythm, pedal pulses intact - Abdominal GI/Abdominal Exam: soft, normoactive BS x4 - Wound Right Axilla Wound Bed Appearance: Slough - Labs Result Diagrams: 03/21/18 10:00 03/21/18 10:00 H & H 02/14/18 02/14/18 02/14/18 Range/Units 04:09 13:13 17:37 Hgb 8.7 L 9.8 L D 10.6 L (13.5-17.5) GM/DL Hct 27.9 L 31.5 L D (41-53) % 02/14/18 02/16/18 02/18/18 Range/Units 21:43 04:34 03:56 Hgb 10.9 L 10.7 L 10.8 L (13.5-17.5) GM/DL Hct 33.3 L 33.4 L (41-53) % 02/18/18 02/19/18 02/20/18 Range/Units 21:15 04:47 04:18 Hgb 9.3 L D 8.5 L 7.0 L D (13.5-17.5) GM/DL Hct 28.4 L D 26.5 L 21.9 L D (41-53) % 02/20/18 02/21/18 02/22/18 Range/Units 12:49 04:31 04:09 Hgb 7.9 L D 7.4 L 7.2 L (13.5-17.5) GM/DL Hct 23.2 L 22.7 L (41-53) % 02/23/18 02/24/18 02/25/18 Range/Units 03:57 04:12 04:11 Hgb 7.6 L 7.4 L 7.3 L (13.5-17.5) GM/DL Hct 23.6 L 23.0 L 23.2 L (41-53) % 02/26/18 03/03/18 03/08/18 Range/Units 03:58 04:03 04:49 Hgb 7.5 L 7.8 L 9.1 L (13.5-17.5) GM/DL Hct 23.8 L 25.0 L 29.4 L (41-53) % 03/21/18 Range/Units 10:00 Hgb 9.7 L (13.5-17.5) GM/DL Hct 30.1 L (41-53) % Orthopedic Assessment and Plan (1) Hip dislocation, right Status: Acute Qualifiers: Encounter type: initial encounter Qualified Code(s): S73.004A - Unspecified dislocation of right hip, initial encounter Problem Details: Recurrent, closed reduction in OR 02/04/18, 02/06/18, 02/12/18--> VAIBHAV 02/18/18 Assessment and Plan: Mr Foley was taken to the OR on 02/04/18, 02/06/18 & 02/12/18 for closed reduction of the right hip under anesthesia. 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 Continue hip precautions. 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 Gaming Guardianship/conservator still pending, see CM notes for details. Wound consult- managing pressure ulcers on bilateral heels. Dr. Tejada managing depression. Current anti-coagulation protocol- Plavix 75mg daily. ASA 81mg. SCD's for added protection Dr. James managing medically. monitoring blood sugars PRN. PT/OT services to improve independent function. - Additional Diagnoses Atrial Fibrillation: rate controlled Diabetes: resume oral medications, other (Has been under good control.) CAD: no active chest pain Anemia: no intervention required Hospital Course Summary Disclaimer: The visit summary below is not to be considered part of the above Progress Note. 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 Psychiatric evaluation suggested that the patient is not competent to make his own medication decisions. Case management is working on obtaining a guardian for the patient for consent to do a hip revision. Patient remains at high risk for recurrent dislocation, especially if transferred to skilled nursing as [facility] nursing staff is well educated on precautions. Continue with current cares. Continue wedge pillow and straight leg immobilizer to minimize risk. Encourage participation in therapies to work with him on precautions and ambulation. Continue with bowel motivation. Recheck labs in AM to monitor blood counts, electrolytes and renal function. 02/16/18 [place] - Covering for Dr Lewis Clinically doing well. Forgetful about hip precautions. Plavix on hold for upcoming surgical procedure. Will start SCD for DVT prevention. Blood pressure and blood sugars stable - continue with current treatment. Encourage participation in therapies to work with him on precautions and ambulation. Patient remains at high risk for recurrent dislocation, especially if transferred to skilled nursing as [facility] nursing staff is well educated on precautions. Anticipate Dr Lewis's return tomorrow. 02/19/18 [place] - Covering for Dr Lewis Will decrease IVF to 50cc/hr - oral drive with decrease. Encourage nursing to give Dulcolax to help with bowel function. Urine output slow-will place Herman, start bladder retraining, and initiate Flomax. Nursing not able to place Herman as pt very resistant to that intervention. Will hold on Herman, but continue Flomax. Continue with post op pain control and therapy. Blood sugars and pressure stable with current regimen. Lab ordered for tomorrow. 02/20/18 [place] - covering for Dr Lewis Hgb down to 7.0; will type and cross for 1 unit PRBC. With weight trending up give Lasix post-transfusion. DC IVF. Oral intake starting to improve today. Start tracking I/O - if UO does not improve may need to restart IVF. Renal function is stable. Constipation - BM on 02/1802/21/[address] Lewis Hgb 7.4, s/p 1 unit PRBC transfusion yesterday (and 2 units on 02/14). Dressing is reportedly c/d/i without drainage. Check stool for occult blood. Iron level was low at 34 on on 02/11. Platelets also showing downward trend: Hold naproxen & ASA. He is hemodynamically stable. Weight continues to trend up; he is up 6 kg from date of admission. Anemia could be partly dilutional in nature. Unable to calculate I/O d/t urinary incontinence. He is maintaining saturations on room air. CXR yesterday was negative. Electrolytes/renal function stable. 02/22/18 Hgb 7.2, s/p 3 unit PRBC during hospital course and has been treated with IV iron. Oral iron initiated. Hemoccult pending. Anticipate probable need for additional blood tomorrow, type and screen in a.m. Iron level was low at 34 on on 02/11. Hold naproxen & ASA. May be hemolyzing blood previously transfused, bilirubin normal yesterday-Check haptoglobin/LDH with labs tomorrow. Weight down 3 kg from yesterday but remains positive through the hospitalization and hemoglobin down slightly despite negative fluid balance yesterday. Patient describe dysuria yesterday and urinary frequency which he indicated has been present for about 6 months, UA negative. Urine volumes improving since Flomax initiated. Constipation resolved. Limited activity with physical therapy; guardianship pending to permit placement. 02/23/18 Hgb 7.6-slightly improved today, s/p 3 unit PRBC during hospital course and (2 units preceded VAIBHAV) and has been treated with IV iron. Oral iron initiated. Hemoccult pending. Continue iron therapy; no clear evidence of hemolysis thus far. Continue to monitor hemoglobin daily until above 8. Last bowel movement at least 4-5 days ago-MiraLAX/Senokot doses increased; may require milk of magnesia or alternate stimulant. Much more interactive/appropriate responses today. Will discuss with case management tomorrow, may benefit from repeat psychiatric assessment of competency. 02/24/18 Hgb 7.4. Stool for occult blood is pending. B12 also pending. Continue iron. ASA and Naproxen are on hold. Constipation - last BM 02/21 per RN. Will give Dulcolax today if no results. Good oral intake. VSS; hemodynamically stable. 02/25/18 Hgb 7.3. Stool for occult blood is pending (had BM last night but Hemoccult was not sent). B12 low normal at 272 - methylmalonic acid level ordered; initiate oral B-12 supplementation. Haptoglobin pending. Continue iron. ASA and Naproxen are on hold. Continues on Plavix. VSS; hemodynamically stable. Largely asymptomatic in regards to persistent anemia. Weight is up 2 kg over the past 48 hours-Lasix to be given again today. 02/26/18 [place] - Covering for Dr. Lewis Hemoglobin largely stable at 7.5 this am. Pain controlled. Tolerating therapy. Blood pressure and blood sugars stable - continue treatments. Continue with supportive care, support, and therapy. Anticipate Dr Lewis's return tomorrow. 03/01/18 [place] - Covering for Dr. Lewis Medically doing well-BP, sugars, vitals stable. Emotional support for loss of spouse - very difficult transition for him. Continue with supportive care. Plan - 03/02/18: Covering for Dr. Lewis Medically doing well-BP, sugars, vitals stable. Emotional support for loss of spouse - very difficult transition for him. May consider psychiatric consult for acute grief and treatment recommendations. Continue with supportive care. Will recheck labs in AM to monitor blood counts, electrolytes and renal function. Case management assisting with discharge planning. Dr. Lewis to assume care on 03/03/18.
[2018-04-06] MEDS: ESCITALOPRAM 20 MG TABLET PO SCH (09:03)
[2018-04-06] MEDS: CARVEDILOL 6.25 MG TABLET PO SCH ×2 (09:03→17:44)
[2018-04-06] MEDS: CYANOCOBALAMIN (B-12) 500mcg TABLET PO SCH (09:03)
[2018-04-06] MEDS: CLOPIDOGREL 75 MG TABLET PO SCH (09:03)
[2018-04-06] MEDS: METFORMIN 1,000 MG TABLET PO SCH ×2 (09:03→17:45)
[2018-04-06] MEDS: FERROUS GLUCONATE 324 MG TABLET PO SCH (09:03)
[2018-04-06] MEDS: AMLODIPINE 5 MG TABLET PO SCH (09:03)
[2018-04-06] MEDS: ACETAMINOPHEN 325 MG TABLET PO SCH ×4 (09:04→20:56)
[2018-04-06] MEDS: RANITIDINE 150 MG TABLET PO SCH (20:56)
[2018-04-06] MEDS: TAMSULOSIN 0.4 MG CAPSULE PO SCH (20:56)
[2018-04-06] MEDS: SUCRALFATE 1 GM TABLET PO SCH (20:57)
[2018-04-06] MEDS: MIRTAZAPINE 15 MG TABLET PO SCH (20:57)
[2018-04-06] MEDS: QUETIAPINE 50 MG TABLET PO SCH (20:57)
[2018-04-07] MEDS: CARVEDILOL 6.25 MG TABLET PO SCH ×2 (08:54→17:37)
[2018-04-07] MEDS: ACETAMINOPHEN 325 MG TABLET PO SCH ×4 (08:54→20:26)
[2018-04-07] MEDS: METFORMIN 1,000 MG TABLET PO SCH ×2 (08:55→17:38)
[2018-04-07] MEDS: CYANOCOBALAMIN (B-12) 500mcg TABLET PO SCH (08:55)
[2018-04-07] MEDS: AMLODIPINE 5 MG TABLET PO SCH (08:55)
[2018-04-07] MEDS: CLOPIDOGREL 75 MG TABLET PO SCH (08:55)
[2018-04-07] MEDS: FERROUS GLUCONATE 324 MG TABLET PO SCH (08:55)
[2018-04-07] MEDS: ESCITALOPRAM 20 MG TABLET PO SCH (08:55)
--- NOTE | 2018-04-07 12:17 | Orthopedic Progress Note ---
Date: Date: 04/07/18 Time: 1216 Subjective/Severity of Illness: No change. Pt doing well. Awaiting for the State to make a decision. Orthopedic Exam Vital signs: Temperature 95.9 F L 02/05/18 15:57 Pulse Rate 64 02/05/18 15:57 Respiratory Rate 18 02/05/18 15:57 Blood Pressure 149/69 H 02/05/18 15:57 Pulse Oximetry 97 02/05/18 15:57 Vital Signs Temp Pulse Resp BP Pulse Ox 02/16/18 07:34 97.2 F 61 16 165/73 H 96 02/16/18 04:00 97.4 F 59 L 16 164/72 H 92 02/16/18 00:00 97.2 F 65 16 140/71 H 94 02/15/18 20:00 96.7 F L 66 20 106/56 93 02/15/18 16:36 96.6 F L 65 16 144/67 H 95 02/15/18 12:00 96.5 F L 61 16 159/71 H 94 Intake and Output 02/15/18 02/16/18 02/16/18 22:59 06:59 14:59 Intake Total 240 / 240 Output Total 200 / 200 350 / 350 Balance -200 / -200 -350 / -350 240 / 240 Intake: Oral 240 / 240 Output: Urine 200 / 200 350 / 350 Other: Urine Appearance Clear Clear Urine Color Yellow Yellow Stool Color Brown Stool Consistency Soft Size of Bowel Movement Smear # Voids 1 Weight 229 lb 11.547 oz Patient Weight 02/17/18 06:59 Weight 229 lb 11.547 oz - Constitutional General Appearance: Present: alert, no acute distress, well developed, well nourished - Respiratory Exam Present: non-labored - Dressing Dressing: no drainage - Hip Exam right Hip Exam: Present: alignment normal - Neurological Exam Present: no deficits - Psychiatric Exam Present: alert - Labs Result Diagrams: 03/21/18 10:00 03/21/18 10:00 H & H 02/14/18 02/14/18 02/14/18 Range/Units 04:09 13:13 17:37 Hgb 8.7 L 9.8 L D 10.6 L (13.5-17.5) GM/DL Hct 27.9 L 31.5 L D (41-53) % 02/14/18 02/16/18 02/18/18 Range/Units 21:43 04:34 03:56 Hgb 10.9 L 10.7 L 10.8 L (13.5-17.5) GM/DL Hct 33.3 L 33.4 L (41-53) % 02/18/18 02/19/18 02/20/18 Range/Units 21:15 04:47 04:18 Hgb 9.3 L D 8.5 L 7.0 L D (13.5-17.5) GM/DL Hct 28.4 L D 26.5 L 21.9 L D (41-53) % 02/20/18 02/21/18 02/22/18 Range/Units 12:49 04:31 04:09 Hgb 7.9 L D 7.4 L 7.2 L (13.5-17.5) GM/DL Hct 23.2 L 22.7 L (41-53) % 02/23/18 02/24/18 02/25/18 Range/Units 03:57 04:12 04:11 Hgb 7.6 L 7.4 L 7.3 L (13.5-17.5) GM/DL Hct 23.6 L 23.0 L 23.2 L (41-53) % 02/26/18 03/03/18 03/08/18 Range/Units 03:58 04:03 04:49 Hgb 7.5 L 7.8 L 9.1 L (13.5-17.5) GM/DL Hct 23.8 L 25.0 L 29.4 L (41-53) % 03/21/18 Range/Units 10:00 Hgb 9.7 L (13.5-17.5) GM/DL Hct 30.1 L (41-53) % Orthopedic Assessment and Plan (1) Hip dislocation, right Status: Acute Qualifiers: Encounter type: initial encounter Qualified Code(s): S73.004A - Unspecified dislocation of right hip, initial encounter Problem Details: Recurrent, closed reduction in OR 02/04/18, 02/06/18, 02/12/18--> VAIBHAV 02/18/18 Assessment and Plan: Mr Foley was taken to the OR on 02/04/18, 02/06/18 & 02/12/18 for closed reduction of the right hip under anesthesia. 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 Continue hip precautions. 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 Gaming Guardianship/conservator still pending, see CM notes for details. Wound consult- managing pressure ulcers on bilateral heels. Dr. Tejada managing depression. Current anti-coagulation protocol- Plavix 75mg daily. ASA 81mg. SCD's for added protection Dr. James managing medically. monitoring blood sugars PRN. PT/OT services to improve independent function. - Additional Diagnoses Atrial Fibrillation: rate controlled Diabetes: resume oral medications, other (Has been under good control.) CAD: no active chest pain Anemia: no intervention required Hospital Course Summary Disclaimer: The visit summary below is not to be considered part of the above Progress Note. 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 Psychiatric evaluation suggested that the patient is not competent to make his own medication decisions. Case management is working on obtaining a guardian for the patient for consent to do a hip revision. Patient remains at high risk for recurrent dislocation, especially if transferred to assisted as [facility] nursing staff is well educated on precautions. Continue with current cares. Continue wedge pillow and straight leg immobilizer to minimize risk. Encourage participation in therapies to work with him on precautions and ambulation. Continue with bowel motivation. Recheck labs in AM to monitor blood counts, electrolytes and renal function. 02/16/18 [place] - Covering for Dr Lewis Clinically doing well. Forgetful about hip precautions. Plavix on hold for upcoming surgical procedure. Will start SCD for DVT prevention. Blood pressure and blood sugars stable - continue with current treatment. Encourage participation in therapies to work with him on precautions and ambulation. Patient remains at high risk for recurrent dislocation, especially if transferred to assisted as [facility] nursing staff is well educated on precautions. Anticipate Dr Lewis's return tomorrow. 02/19/18 [place] - Covering for Dr Lewis Will decrease IVF to 50cc/hr - oral drive with decrease. Encourage nursing to give Dulcolax to help with bowel function. Urine output slow-will place Herman, start bladder retraining, and initiate Flomax. Nursing not able to place Herman as pt very resistant to that intervention. Will hold on Herman, but continue Flomax. Continue with post op pain control and therapy. Blood sugars and pressure stable with current regimen. Lab ordered for tomorrow. 02/20/18 [place] - covering for Dr Lewis Hgb down to 7.0; will type and cross for 1 unit PRBC. With weight trending up give Lasix post-transfusion. DC IVF. Oral intake starting to improve today. Start tracking I/O - if UO does not improve may need to restart IVF. Renal function is stable. Constipation - BM on 02/1802/21/[address] Lewis Hgb 7.4, s/p 1 unit PRBC transfusion yesterday (and 2 units on 02/14). Dressing is reportedly c/d/i without drainage. Check stool for occult blood. Iron level was low at 34 on on 02/11. Platelets also showing downward trend: Hold naproxen & ASA. He is hemodynamically stable. Weight continues to trend up; he is up 6 kg from date of admission. Anemia could be partly dilutional in nature. Unable to calculate I/O d/t urinary incontinence. He is maintaining saturations on room air. CXR yesterday was negative. Electrolytes/renal function stable. 02/22/18 Hgb 7.2, s/p 3 unit PRBC during hospital course and has been treated with IV iron. Oral iron initiated. Hemoccult pending. Anticipate probable need for additional blood tomorrow, type and screen in a.m. Iron level was low at 34 on on 02/11. Hold naproxen & ASA. May be hemolyzing blood previously transfused, bilirubin normal yesterday-Check haptoglobin/LDH with labs tomorrow. Weight down 3 kg from yesterday but remains positive through the hospitalization and hemoglobin down slightly despite negative fluid balance yesterday. Patient describe dysuria yesterday and urinary frequency which he indicated has been present for about 6 months, UA negative. Urine volumes improving since Flomax initiated. Constipation resolved. Limited activity with physical therapy; guardianship pending to permit placement. 02/23/18 Hgb 7.6-slightly improved today, s/p 3 unit PRBC during hospital course and (2 units preceded VAIBHAV) and has been treated with IV iron. Oral iron initiated. Hemoccult pending. Continue iron therapy; no clear evidence of hemolysis thus far. Continue to monitor hemoglobin daily until above 8. Last bowel movement at least 4-5 days ago-MiraLAX/Senokot doses increased; may require milk of magnesia or alternate stimulant. Much more interactive/appropriate responses today. Will discuss with case management tomorrow, may benefit from repeat psychiatric assessment of competency. 02/24/18 Hgb 7.4. Stool for occult blood is pending. B12 also pending. Continue iron. ASA and Naproxen are on hold. Constipation - last BM 02/21 per RN. Will give Dulcolax today if no results. Good oral intake. VSS; hemodynamically stable. 02/25/18 Hgb 7.3. Stool for occult blood is pending (had BM last night but Hemoccult was not sent). B12 low normal at 272 - methylmalonic acid level ordered; initiate oral B-12 supplementation. Haptoglobin pending. Continue iron. ASA and Naproxen are on hold. Continues on Plavix. VSS; hemodynamically stable. Largely asymptomatic in regards to persistent anemia. Weight is up 2 kg over the past 48 hours-Lasix to be given again today. 02/26/18 [place] - Covering for Dr. Lewis Hemoglobin largely stable at 7.5 this am. Pain controlled. Tolerating therapy. Blood pressure and blood sugars stable - continue treatments. Continue with supportive care, support, and therapy. Anticipate Dr Lewis's return tomorrow. 03/01/18 [place] - Covering for Dr. Lewis Medically doing well-BP, sugars, vitals stable. Emotional support for loss of spouse - very difficult transition for him. Continue with supportive care. Plan - 03/02/18: Covering for Dr. Lewis Medically doing well-BP, sugars, vitals stable. Emotional support for loss of spouse - very difficult transition for him. May consider psychiatric consult for acute grief and treatment recommendations. Continue with supportive care. Will recheck labs in AM to monitor blood counts, electrolytes and renal function. Case management assisting with discharge planning. Dr. Lewis to assume care on 03/03/18.
[2018-04-07] MEDS: MIRTAZAPINE 15 MG TABLET PO SCH (20:25)
[2018-04-07] MEDS: QUETIAPINE 50 MG TABLET PO SCH (20:25)
[2018-04-07] MEDS: RANITIDINE 150 MG TABLET PO SCH (20:25)
[2018-04-07] MEDS: TAMSULOSIN 0.4 MG CAPSULE PO SCH (20:26)
[2018-04-07] MEDS: SUCRALFATE 1 GM TABLET PO SCH (20:27)
[2018-04-08] MEDS: AMLODIPINE 5 MG TABLET PO SCH (08:51)
[2018-04-08] MEDS: ACETAMINOPHEN 325 MG TABLET PO SCH ×4 (08:51→20:04)
[2018-04-08] MEDS: ESCITALOPRAM 20 MG TABLET PO SCH (08:52)
[2018-04-08] MEDS: CARVEDILOL 6.25 MG TABLET PO SCH ×2 (08:52→18:27)
[2018-04-08] MEDS: METFORMIN 1,000 MG TABLET PO SCH ×2 (08:52→18:27)
[2018-04-08] MEDS: CYANOCOBALAMIN (B-12) 500mcg TABLET PO SCH (08:52)
[2018-04-08] MEDS: FERROUS GLUCONATE 324 MG TABLET PO SCH (08:52)
[2018-04-08] MEDS: CLOPIDOGREL 75 MG TABLET PO SCH (08:53)
--- NOTE | 2018-04-08 13:30 | Orthopedic Progress Note ---
Date: Date: 04/08/18 Time: 1327 Subjective/Severity of Illness: Jonathan is doing well. Denies pain and overall is doing quite well. His bowels are working, urinating without problems. No CP or breathing issues. Ambulating with PT and nursing. Orthopedic Exam Vital signs: Temperature 95.9 F L 02/05/18 15:57 Pulse Rate 64 02/05/18 15:57 Respiratory Rate 18 02/05/18 15:57 Blood Pressure 149/69 H 02/05/18 15:57 Pulse Oximetry 97 02/05/18 15:57 Vital Signs Temp Pulse Resp BP Pulse Ox 02/16/18 07:34 97.2 F 61 16 165/73 H 96 02/16/18 04:00 97.4 F 59 L 16 164/72 H 92 02/16/18 00:00 97.2 F 65 16 140/71 H 94 02/15/18 20:00 96.7 F L 66 20 106/56 93 02/15/18 16:36 96.6 F L 65 16 144/67 H 95 02/15/18 12:00 96.5 F L 61 16 159/71 H 94 Intake and Output 02/15/18 02/16/18 02/16/18 22:59 06:59 14:59 Intake Total 240 / 240 Output Total 200 / 200 350 / 350 Balance -200 / -200 -350 / -350 240 / 240 Intake: Oral 240 / 240 Output: Urine 200 / 200 350 / 350 Other: Urine Appearance Clear Clear Urine Color Yellow Yellow Stool Color Brown Stool Consistency Soft Size of Bowel Movement Smear # Voids 1 Weight 229 lb 11.547 oz Patient Weight 02/17/18 06:59 Weight 229 lb 11.547 oz - Constitutional General Appearance: Present: alert, no acute distress, well developed, well nourished - Respiratory Exam Present: non-labored - Cardiovascular Exam Present: pedal pulses intact - Abdominal Exam Present: soft, normoactive BS x4 - Extremities Exam Present: pulses intact - Hip Exam right Hip Exam: Present: alignment normal - Integumentary Exam Present: pink, warm, dry - Neurological Exam Present: no deficits - Psychiatric Exam Present: alert - Labs Result Diagrams: 03/21/18 10:00 03/21/18 10:00 H & H 02/04/18 02/07/18 02/11/18 Range/Units 11:33 04:16 17:57 Hgb 9.8 L 9.2 L 9.6 L (13.5-17.5) GM/DL Hct 31.2 L 29.4 L 30.6 L (41-53) % 02/14/18 02/14/18 02/14/18 Range/Units 04:09 13:13 17:37 Hgb 8.7 L 9.8 L D 10.6 L (13.5-17.5) GM/DL Hct 27.9 L 31.5 L D (41-53) % 02/14/18 02/16/18 02/18/18 Range/Units 21:43 04:34 03:56 Hgb 10.9 L 10.7 L 10.8 L (13.5-17.5) GM/DL Hct 33.3 L 33.4 L (41-53) % 02/18/18 02/19/18 02/20/18 Range/Units 21:15 04:47 04:18 Hgb 9.3 L D 8.5 L 7.0 L D (13.5-17.5) GM/DL Hct 28.4 L D 26.5 L 21.9 L D (41-53) % 02/20/18 02/21/18 02/22/18 Range/Units 12:49 04:31 04:09 Hgb 7.9 L D 7.4 L 7.2 L (13.5-17.5) GM/DL Hct 23.2 L 22.7 L (41-53) % 02/23/18 02/24/18 02/25/18 Range/Units 03:57 04:12 04:11 Hgb 7.6 L 7.4 L 7.3 L (13.5-17.5) GM/DL Hct 23.6 L 23.0 L 23.2 L (41-53) % 02/26/18 03/03/18 03/08/18 Range/Units 03:58 04:03 04:49 Hgb 7.5 L 7.8 L 9.1 L (13.5-17.5) GM/DL Hct 23.8 L 25.0 L 29.4 L (41-53) % 03/21/18 Range/Units 10:00 Hgb 9.7 L (13.5-17.5) GM/DL Hct 30.1 L (41-53) % Orthopedic Assessment and Plan (1) Hip dislocation, right Status: Acute Qualifiers: Encounter type: initial encounter Qualified Code(s): S73.004A - Unspecified dislocation of right hip, initial encounter Problem Details: Recurrent, closed reduction in OR 02/04/18, 02/06/18, 02/12/18--> VAIBHAV 02/18/18 Assessment and Plan: Mr Foley was taken to the OR on 02/04/18, 02/06/18 & 02/12/18 for closed reduction of the right hip under anesthesia. 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 Continue hip precautions. Await placement. 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 Gaming Guardianship/conservator still pending, see CM notes for details. Wound consult- managing pressure ulcers on bilateral heels. Dr. Tejada managing depression. Current anti-coagulation protocol- Plavix 75mg daily. ASA 81mg. SCD's for added protection - Additional Diagnoses Atrial Fibrillation: rate controlled Diabetes: resume oral medications, other (Has been under good control.) CAD: no active chest pain Anemia: no intervention required Hospital Course Summary Disclaimer: The visit summary below is not to be considered part of the above Progress Note. 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 Psychiatric evaluation suggested that the patient is not competent to make his own medication decisions. Case management is working on obtaining a guardian for the patient for consent to do a hip revision. Patient remains at high risk for recurrent dislocation, especially if transferred to shelter as [facility] nursing staff is well educated on precautions. Continue with current cares. Continue wedge pillow and straight leg immobilizer to minimize risk. Encourage participation in therapies to work with him on precautions and ambulation. Continue with bowel motivation. Recheck labs in AM to monitor blood counts, electrolytes and renal function. 02/16/18 [place] - Covering for Dr Lewis Clinically doing well. Forgetful about hip precautions. Plavix on hold for upcoming surgical procedure. Will start SCD for DVT prevention. Blood pressure and blood sugars stable - continue with current treatment. Encourage participation in therapies to work with him on precautions and ambulation. Patient remains at high risk for recurrent dislocation, especially if transferred to shelter as [facility] nursing staff is well educated on precautions. Anticipate Dr Lewis's return tomorrow. 02/19/18 [place] - Covering for Dr Lewis Will decrease IVF to 50cc/hr - oral drive with decrease. Encourage nursing to give Dulcolax to help with bowel function. Urine output slow-will place Herman, start bladder retraining, and initiate Flomax. Nursing not able to place Herman as pt very resistant to that intervention. Will hold on Herman, but continue Flomax. Continue with post op pain control and therapy. Blood sugars and pressure stable with current regimen. Lab ordered for tomorrow. 02/20/18 [place] - covering for Dr Lewis Hgb down to 7.0; will type and cross for 1 unit PRBC. With weight trending up give Lasix post-transfusion. DC IVF. Oral intake starting to improve today. Start tracking I/O - if UO does not improve may need to restart IVF. Renal function is stable. Constipation - BM on 02/1802/21/[address] Lewis Hgb 7.4, s/p 1 unit PRBC transfusion yesterday (and 2 units on 02/14). Dressing is reportedly c/d/i without drainage. Check stool for occult blood. Iron level was low at 34 on on 02/11. Platelets also showing downward trend: Hold naproxen & ASA. He is hemodynamically stable. Weight continues to trend up; he is up 6 kg from date of admission. Anemia could be partly dilutional in nature. Unable to calculate I/O d/t urinary incontinence. He is maintaining saturations on room air. CXR yesterday was negative. Electrolytes/renal function stable. 02/22/18 Hgb 7.2, s/p 3 unit PRBC during hospital course and has been treated with IV iron. Oral iron initiated. Hemoccult pending. Anticipate probable need for additional blood tomorrow, type and screen in a.m. Iron level was low at 34 on on 02/11. Hold naproxen & ASA. May be hemolyzing blood previously transfused, bilirubin normal yesterday-Check haptoglobin/LDH with labs tomorrow. Weight down 3 kg from yesterday but remains positive through the hospitalization and hemoglobin down slightly despite negative fluid balance yesterday. Patient describe dysuria yesterday and urinary frequency which he indicated has been present for about 6 months, UA negative. Urine volumes improving since Flomax initiated. Constipation resolved. Limited activity with physical therapy; guardianship pending to permit placement. 02/23/18 Hgb 7.6-slightly improved today, s/p 3 unit PRBC during hospital course and (2 units preceded VAIBHAV) and has been treated with IV iron. Oral iron initiated. Hemoccult pending. Continue iron therapy; no clear evidence of hemolysis thus far. Continue to monitor hemoglobin daily until above 8. Last bowel movement at least 4-5 days ago-MiraLAX/Senokot doses increased; may require milk of magnesia or alternate stimulant. Much more interactive/appropriate responses today. Will discuss with case management tomorrow, may benefit from repeat psychiatric assessment of competency. 02/24/18 Hgb 7.4. Stool for occult blood is pending. B12 also pending. Continue iron. ASA and Naproxen are on hold. Constipation - last BM 02/21 per RN. Will give Dulcolax today if no results. Good oral intake. VSS; hemodynamically stable. 02/25/18 Hgb 7.3. Stool for occult blood is pending (had BM last night but Hemoccult was not sent). B12 low normal at 272 - methylmalonic acid level ordered; initiate oral B-12 supplementation. Haptoglobin pending. Continue iron. ASA and Naproxen are on hold. Continues on Plavix. VSS; hemodynamically stable. Largely asymptomatic in regards to persistent anemia. Weight is up 2 kg over the past 48 hours-Lasix to be given again today. 02/26/18 [place] - Covering for Dr. Lewis Hemoglobin largely stable at 7.5 this am. Pain controlled. Tolerating therapy. Blood pressure and blood sugars stable - continue treatments. Continue with supportive care, support, and therapy. Anticipate Dr Lewis's return tomorrow. 03/01/18 [place] - Covering for Dr. Roeser Medically doing well-BP, sugars, vitals stable. Emotional support for loss of spouse - very difficult transition for him. Continue with supportive care. Plan - 03/02/18: Covering for Dr. Lewis Medically doing well-BP, sugars, vitals stable. Emotional support for loss of spouse - very difficult transition for him. May consider psychiatric consult for acute grief and treatment recommendations. Continue with supportive care. Will recheck labs in AM to monitor blood counts, electrolytes and renal function. Case management assisting with discharge planning. Dr. Lewis to assume care on 03/03/18.
[2018-04-08] MEDS: MIRTAZAPINE 15 MG TABLET PO SCH (20:04)
[2018-04-08] MEDS: SUCRALFATE 1 GM TABLET PO SCH (20:05)
[2018-04-08] MEDS: RANITIDINE 150 MG TABLET PO SCH (20:05)
[2018-04-08] MEDS: QUETIAPINE 50 MG TABLET PO SCH (20:05)
[2018-04-08] MEDS: TAMSULOSIN 0.4 MG CAPSULE PO SCH (20:05)
--- NOTE | 2018-04-09 08:37 | Orthopedic Progress Note ---
Date: Date: 04/09/18 Time: 834 Subjective/Severity of Illness: Jonathan is doing well this morning on rounds. Denies any new complaints or concerns. Has been ambulating the halls, denies any issues with right hip. Denies CP, SOA, nausea. Reports regular BMs, no difficulty with urination. Exam - Constitutional Vital Signs: Temperature 96.4 F L 04/09/18 07:00 Pulse Rate 80 04/09/18 07:00 Respiratory Rate 12 04/09/18 07:00 Blood Pressure 168/71 H 04/09/18 07:00 Pulse Oximetry 96 04/09/18 07:00 General: healthy appearing, no acute distress, well developed, well groomed Nutritional Appearance: well nourished Orientation: alert, oriented x3 - RLE Postoperative Appearance: extremity compartments are soft and nontender, neurovascullary intact to extremities - Respiratory Respiratory Exam: CTA bilaterally, non-labored - Cardiac Cardiovascular exam: Regular Rate/Rhythm, pedal pulses intact - Abdominal GI/Abdominal Exam: soft, normoactive BS x4 - Labs Result Diagrams: 03/21/18 10:00 03/21/18 10:00 H & H 02/04/18 02/07/18 02/11/18 Range/Units 11:33 04:16 17:57 Hgb 9.8 L 9.2 L 9.6 L (13.5-17.5) GM/DL Hct 31.2 L 29.4 L 30.6 L (41-53) % 02/14/18 02/14/18 02/14/18 Range/Units 04:09 13:13 17:37 Hgb 8.7 L 9.8 L D 10.6 L (13.5-17.5) GM/DL Hct 27.9 L 31.5 L D (41-53) % 02/14/18 02/16/18 02/18/18 Range/Units 21:43 04:34 03:56 Hgb 10.9 L 10.7 L 10.8 L (13.5-17.5) GM/DL Hct 33.3 L 33.4 L (41-53) % 02/18/18 02/19/18 02/20/18 Range/Units 21:15 04:47 04:18 Hgb 9.3 L D 8.5 L 7.0 L D (13.5-17.5) GM/DL Hct 28.4 L D 26.5 L 21.9 L D (41-53) % 02/20/18 02/21/18 02/22/18 Range/Units 12:49 04:31 04:09 Hgb 7.9 L D 7.4 L 7.2 L (13.5-17.5) GM/DL Hct 23.2 L 22.7 L (41-53) % 02/23/18 02/24/18 02/25/18 Range/Units 03:57 04:12 04:11 Hgb 7.6 L 7.4 L 7.3 L (13.5-17.5) GM/DL Hct 23.6 L 23.0 L 23.2 L (41-53) % 02/26/18 03/03/18 03/08/18 Range/Units 03:58 04:03 04:49 Hgb 7.5 L 7.8 L 9.1 L (13.5-17.5) GM/DL Hct 23.8 L 25.0 L 29.4 L (41-53) % 03/21/18 Range/Units 10:00 Hgb 9.7 L (13.5-17.5) GM/DL Hct 30.1 L (41-53) % Orthopedic Assessment and Plan (1) Hip dislocation, right Status: Acute Qualifiers: Encounter type: initial encounter Qualified Code(s): S73.004A - Unspecified dislocation of right hip, initial encounter Problem Details: Recurrent, closed reduction in OR 02/04/18, 02/06/18, 02/12/18--> VAIBHAV 02/18/18 Assessment and Plan: Mr Foley was taken to the OR on 02/04/18, 02/06/18 & 02/12/18 for closed reduction of the right hip under anesthesia. 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 Continue hip precautions. Await placement. 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 Gaming Guardianship/conservator still pending, see CM notes for details. Wound consult- managing pressure ulcers on bilateral heels. Dr. Tejada managing depression. Current anti-coagulation protocol- Plavix 75mg daily. ASA 81mg. SCD's for added protection - Additional Diagnoses Atrial Fibrillation: rate controlled Diabetes: resume oral medications, other (Has been under good control.) CAD: no active chest pain Anemia: no intervention required Hospital Course Summary Disclaimer: The visit summary below is not to be considered part of the above Progress Note. 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 Psychiatric evaluation suggested that the patient is not competent to make his own medication decisions. Case management is working on obtaining a guardian for the patient for consent to do a hip revision. Patient remains at high risk for recurrent dislocation, especially if transferred to [place] [facility] as [facility] nursing staff is well educated on precautions. Continue with current cares. Continue wedge pillow and straight leg immobilizer to minimize risk. Encourage participation in therapies to work with him on precautions and ambulation. Continue with bowel motivation. Recheck labs in AM to monitor blood counts, electrolytes and renal function. 02/16/18 [place] - Covering for Dr Leiws Clinically doing well. Forgetful about hip precautions. Plavix on hold for upcoming surgical procedure. Will start SCD for DVT prevention. Blood pressure and blood sugars stable - continue with current treatment. Encourage participation in therapies to work with him on precautions and ambulation. Patient remains at high risk for recurrent dislocation, especially if transferred to [place] [facility] as [facility] nursing staff is well educated on precautions. Anticipate Dr Lewis's return tomorrow. 02/19/18 [place] - Covering for Dr Lewis Will decrease IVF to 50cc/hr - oral drive with decrease. Encourage nursing to give Dulcolax to help with bowel function. Urine output slow-will place Herman, start bladder retraining, and initiate Flomax. Nursing not able to place Herman as pt very resistant to that intervention. Will hold on Herman, but continue Flomax. Continue with post op pain control and therapy. Blood sugars and pressure stable with current regimen. Lab ordered for tomorrow. 02/20/18 [place] - covering for Dr Lewis Hgb down to 7.0; will type and cross for 1 unit PRBC. With weight trending up give Lasix post-transfusion. DC IVF. Oral intake starting to improve today. Start tracking I/O - if UO does not improve may need to restart IVF. Renal function is stable. Constipation - BM on 02/1802/21/[address] Lewis Hgb 7.4, s/p 1 unit PRBC transfusion yesterday (and 2 units on 02/14). Dressing is reportedly c/d/i without drainage. Check stool for occult blood. Iron level was low at 34 on on 02/11. Platelets also showing downward trend: Hold naproxen & ASA. He is hemodynamically stable. Weight continues to trend up; he is up 6 kg from date of admission. Anemia could be partly dilutional in nature. Unable to calculate I/O d/t urinary incontinence. He is maintaining saturations on room air. CXR yesterday was negative. Electrolytes/renal function stable. 02/22/18 Hgb 7.2, s/p 3 unit PRBC during hospital course and has been treated with IV iron. Oral iron initiated. Hemoccult pending. Anticipate probable need for additional blood tomorrow, type and screen in a.m. Iron level was low at 34 on on 02/11. Hold naproxen & ASA. May be hemolyzing blood previously transfused, bilirubin normal yesterday-Check haptoglobin/LDH with labs tomorrow. Weight down 3 kg from yesterday but remains positive through the hospitalization and hemoglobin down slightly despite negative fluid balance yesterday. Patient describe dysuria yesterday and urinary frequency which he indicated has been present for about 6 months, UA negative. Urine volumes improving since Flomax initiated. Constipation resolved. Limited activity with physical therapy; guardianship pending to permit placement. 02/23/18 Hgb 7.6-slightly improved today, s/p 3 unit PRBC during hospital course and (2 units preceded VAIBHAV) and has been treated with IV iron. Oral iron initiated. Hemoccult pending. Continue iron therapy; no clear evidence of hemolysis thus far. Continue to monitor hemoglobin daily until above 8. Last bowel movement at least 4-5 days ago-MiraLAX/Senokot doses increased; may require milk of magnesia or alternate stimulant. Much more interactive/appropriate responses today. Will discuss with case management tomorrow, may benefit from repeat psychiatric assessment of competency. 02/24/18 Hgb 7.4. Stool for occult blood is pending. B12 also pending. Continue iron. ASA and Naproxen are on hold. Constipation - last BM 02/21 per RN. Will give Dulcolax today if no results. Good oral intake. VSS; hemodynamically stable. 02/25/18 Hgb 7.3. Stool for occult blood is pending (had BM last night but Hemoccult was not sent). B12 low normal at 272 - methylmalonic acid level ordered; initiate oral B-12 supplementation. Haptoglobin pending. Continue iron. ASA and Naproxen are on hold. Continues on Plavix. VSS; hemodynamically stable. Largely asymptomatic in regards to persistent anemia. Weight is up 2 kg over the past 48 hours-Lasix to be given again today. 02/26/18 [place] - Covering for Dr. Lewis Hemoglobin largely stable at 7.5 this am. Pain controlled. Tolerating therapy. Blood pressure and blood sugars stable - continue treatments. Continue with supportive care, support, and therapy. Anticipate Dr Lewis's return tomorrow. 03/01/18 [place] - Covering for Dr. Lewis Medically doing well-BP, sugars, vitals stable. Emotional support for loss of spouse - very difficult transition for him. Continue with supportive care. Plan - 03/02/18: Covering for Dr. Lewis Medically doing well-BP, sugars, vitals stable. Emotional support for loss of spouse - very difficult transition for him. May consider psychiatric consult for acute grief and treatment recommendations. Continue with supportive care. Will recheck labs in AM to monitor blood counts, electrolytes and renal function. Case management assisting with discharge planning. Dr. Lewis to assume care on 03/03/18.
[2018-04-09] MEDS: ACETAMINOPHEN 325 MG TABLET PO SCH ×4 (09:42→20:59)
[2018-04-09] MEDS: CLOPIDOGREL 75 MG TABLET PO SCH (09:42)
[2018-04-09] MEDS: CYANOCOBALAMIN (B-12) 500mcg TABLET PO SCH (09:42)
[2018-04-09] MEDS: METFORMIN 1,000 MG TABLET PO SCH ×2 (09:43→18:21)
[2018-04-09] MEDS: FERROUS GLUCONATE 324 MG TABLET PO SCH (09:43)
[2018-04-09] MEDS: AMLODIPINE 5 MG TABLET PO SCH (09:43)
[2018-04-09] MEDS: ESCITALOPRAM 20 MG TABLET PO SCH (09:43)
[2018-04-09] MEDS: CARVEDILOL 6.25 MG TABLET PO SCH ×2 (09:43→18:21)
[2018-04-09] MEDS: SUCRALFATE 1 GM TABLET PO SCH (20:59)
[2018-04-09] MEDS: QUETIAPINE 50 MG TABLET PO SCH (21:00)
[2018-04-09] MEDS: TAMSULOSIN 0.4 MG CAPSULE PO SCH (21:00)
[2018-04-09] MEDS: MIRTAZAPINE 15 MG TABLET PO SCH (21:00)
[2018-04-09] MEDS: RANITIDINE 150 MG TABLET PO SCH (21:00)
--- NOTE | 2018-04-10 07:48 | Orthopedic Progress Note ---
Date: Date: 04/10/18 Time: 744 Subjective/Severity of Illness: Pt is reporting that his youngest son is meeting with the State today to discuss his situation. Pt denies any pain and is getting along fine. No complaints. Orthopedic Exam Vital signs: Temperature 95.9 F L 02/05/18 15:57 Pulse Rate 64 02/05/18 15:57 Respiratory Rate 18 02/05/18 15:57 Blood Pressure 149/69 H 02/05/18 15:57 Pulse Oximetry 97 02/05/18 15:57 Vital Signs Temp Pulse Resp BP Pulse Ox 02/16/18 07:34 97.2 F 61 16 165/73 H 96 02/16/18 04:00 97.4 F 59 L 16 164/72 H 92 02/16/18 00:00 97.2 F 65 16 140/71 H 94 02/15/18 20:00 96.7 F L 66 20 106/56 93 02/15/18 16:36 96.6 F L 65 16 144/67 H 95 02/15/18 12:00 96.5 F L 61 16 159/71 H 94 Intake and Output 02/15/18 02/16/18 02/16/18 22:59 06:59 14:59 Intake Total 240 / 240 Output Total 200 / 200 350 / 350 Balance -200 / -200 -350 / -350 240 / 240 Intake: Oral 240 / 240 Output: Urine 200 / 200 350 / 350 Other: Urine Appearance Clear Clear Urine Color Yellow Yellow Stool Color Brown Stool Consistency Soft Size of Bowel Movement Smear # Voids 1 Weight 229 lb 11.547 oz Patient Weight 02/17/18 06:59 Weight 229 lb 11.547 oz - Constitutional General Appearance: Present: alert, no acute distress, well developed, well nourished - Respiratory Exam Present: non-labored - Cardiovascular Exam Present: pedal pulses intact - Extremities Exam Present: pulses intact - Dressing Dressing: other (No dressing. Wound is healed.) - Hip Exam right Hip Exam: Present: alignment normal - Integumentary Exam Present: pink, warm, dry - Lymphatic Lymphatic: Present: lymphedema - Neurological Exam Present: no deficits - Psychiatric Exam Present: alert - Labs Result Diagrams: 03/21/18 10:00 03/21/18 10:00 H & H 02/04/18 02/07/1818 Range/Units 11:33 04:16 17:57 Hgb 9.8 L 9.2 L 9.6 L (13.5-17.5) GM/DL Hct 31.2 L 29.4 L 30.6 L (41-53) % 02/14/18 02/14/18 02/14/18 Range/Units 04:09 13:13 17:37 Hgb 8.7 L 9.8 L D 10.6 L (13.5-17.5) GM/DL Hct 27.9 L 31.5 L D (41-53) % 02/14/18 02/16/18 02/18/18 Range/Units 21:43 04:34 03:56 Hgb 10.9 L 10.7 L 10.8 L (13.5-17.5) GM/DL Hct 33.3 L 33.4 L (41-53) % 02/18/18 02/19/18 02/20/18 Range/Units 21:15 04:47 04:18 Hgb 9.3 L D 8.5 L 7.0 L D (13.5-17.5) GM/DL Hct 28.4 L D 26.5 L 21.9 L D (41-53) % 02/20/18 02/21/18 02/22/18 Range/Units 12:49 04:31 04:09 Hgb 7.9 L D 7.4 L 7.2 L (13.5-17.5) GM/DL Hct 23.2 L 22.7 L (41-53) % 02/23/18 02/24/18 02/25/18 Range/Units 03:57 04:12 04:11 Hgb 7.6 L 7.4 L 7.3 L (13.5-17.5) GM/DL Hct 23.6 L 23.0 L 23.2 L (41-53) % 02/26/18 03/03/18 03/08/18 Range/Units 03:58 04:03 04:49 Hgb 7.5 L 7.8 L 9.1 L (13.5-17.5) GM/DL Hct 23.8 L 25.0 L 29.4 L (41-53) % 03/21/18 Range/Units 10:00 Hgb 9.7 L (13.5-17.5) GM/DL Hct 30.1 L (41-53) % Orthopedic Assessment and Plan (1) Hip dislocation, right Status: Acute Qualifiers: Encounter type: initial encounter Qualified Code(s): S73.004A - Unspecified dislocation of right hip, initial encounter Problem Details: Recurrent, closed reduction in OR 02/04/18, 02/06/18, 02/12/18--> VAIBHAV 02/18/18 Assessment and Plan: Mr Foley was taken to the OR on 02/04/18, 02/06/18 & 02/12/18 for closed reduction of the right hip under anesthesia. 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 Continue hip precautions. Await placement. 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 Gaming Guardianship/conservator still pending, see CM notes for details. Wound consult- managing pressure ulcers on bilateral heels. Dr. Tejada managing depression. Current anti-coagulation protocol- Plavix 75mg daily. ASA 81mg. SCD's for added protection - Anticoagulation Therapy Anticoagulation: Resume home anticoagulant (Plavix and Aspirin.) - Additional Diagnoses Atrial Fibrillation: rate controlled Diabetes: resume oral medications, other (Has been under good control.) CAD: no active chest pain Anemia: no intervention required Hospital Course Summary Disclaimer: The visit summary below is not to be considered part of the above Progress Note. 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 Psychiatric evaluation suggested that the patient is not competent to make his own medication decisions. Case management is working on obtaining a guardian for the patient for consent to do a hip revision. Patient remains at high risk for recurrent dislocation, especially if transferred to retirement as [facility] nursing staff is well educated on precautions. Continue with current cares. Continue wedge pillow and straight leg immobilizer to minimize risk. Encourage participation in therapies to work with him on precautions and ambulation. Continue with bowel motivation. Recheck labs in AM to monitor blood counts, electrolytes and renal function. 02/16/18 [place] - Covering for Dr Lewis Clinically doing well. Forgetful about hip precautions. Plavix on hold for upcoming surgical procedure. Will start SCD for DVT prevention. Blood pressure and blood sugars stable - continue with current treatment. Encourage participation in therapies to work with him on precautions and ambulation. Patient remains at high risk for recurrent dislocation, especially if transferred to retirement as [facility] nursing staff is well educated on precautions. Anticipate Dr Lewis's return tomorrow. 02/19/18 [place] - Covering for Dr Lewis Will decrease IVF to 50cc/hr - oral drive with decrease. Encourage nursing to give Dulcolax to help with bowel function. Urine output slow-will place Herman, start bladder retraining, and initiate Flomax. Nursing not able to place Herman as pt very resistant to that intervention. Will hold on Herman, but continue Flomax. Continue with post op pain control and therapy. Blood sugars and pressure stable with current regimen. Lab ordered for tomorrow. 02/20/18 [place] - covering for Dr Lewis Hgb down to 7.0; will type and cross for 1 unit PRBC. With weight trending up give Lasix post-transfusion. DC IVF. Oral intake starting to improve today. Start tracking I/O - if UO does not improve may need to restart IVF. Renal function is stable. Constipation - BM on 02/1802/21/[address] Lewis Hgb 7.4, s/p 1 unit PRBC transfusion yesterday (and 2 units on 02/14). Dressing is reportedly c/d/i without drainage. Check stool for occult blood. Iron level was low at 34 on on 02/11. Platelets also showing downward trend: Hold naproxen & ASA. He is hemodynamically stable. Weight continues to trend up; he is up 6 kg from date of admission. Anemia could be partly dilutional in nature. Unable to calculate I/O d/t urinary incontinence. He is maintaining saturations on room air. CXR yesterday was negative. Electrolytes/renal function stable. 02/22/18 Hgb 7.2, s/p 3 unit PRBC during hospital course and has been treated with IV iron. Oral iron initiated. Hemoccult pending. Anticipate probable need for additional blood tomorrow, type and screen in a.m. Iron level was low at 34 on on 02/11. Hold naproxen & ASA. May be hemolyzing blood previously transfused, bilirubin normal yesterday-Check haptoglobin/LDH with labs tomorrow. Weight down 3 kg from yesterday but remains positive through the hospitalization and hemoglobin down slightly despite negative fluid balance yesterday. Patient describe dysuria yesterday and urinary frequency which he indicated has been present for about 6 months, UA negative. Urine volumes improving since Flomax initiated. Constipation resolved. Limited activity with physical therapy; guardianship pending to permit placement. 02/23/18 Hgb 7.6-slightly improved today, s/p 3 unit PRBC during hospital course and (2 units preceded VAIBHAV) and has been treated with IV iron. Oral iron initiated. Hemoccult pending. Continue iron therapy; no clear evidence of hemolysis thus far. Continue to monitor hemoglobin daily until above 8. Last bowel movement at least 4-5 days ago-MiraLAX/Senokot doses increased; may require milk of magnesia or alternate stimulant. Much more interactive/appropriate responses today. Will discuss with case management tomorrow, may benefit from repeat psychiatric assessment of competency. 02/24/18 Hgb 7.4. Stool for occult blood is pending. B12 also pending. Continue iron. ASA and Naproxen are on hold. Constipation - last BM 02/21 per RN. Will give Dulcolax today if no results. Good oral intake. VSS; hemodynamically stable. 02/25/18 Hgb 7.3. Stool for occult blood is pending (had BM last night but Hemoccult was not sent). B12 low normal at 272 - methylmalonic acid level ordered; initiate oral B-12 supplementation. Haptoglobin pending. Continue iron. ASA and Naproxen are on hold. Continues on Plavix. VSS; hemodynamically stable. Largely asymptomatic in regards to persistent anemia. Weight is up 2 kg over the past 48 hours-Lasix to be given again today. 02/26/18 [place] - Covering for Dr. Lewis Hemoglobin largely stable at 7.5 this am. Pain controlled. Tolerating therapy. Blood pressure and blood sugars stable - continue treatments. Continue with supportive care, support, and therapy. Anticipate Dr Lewis's return tomorrow. 03/01/18 [place] - Covering for Dr. Lewis Medically doing well-BP, sugars, vitals stable. Emotional support for loss of spouse - very difficult transition for him. Continue with supportive care. Plan - 03/02/18: Covering for Dr. Lewis Medically doing well-BP, sugars, vitals stable. Emotional support for loss of spouse - very difficult transition for him. May consider psychiatric consult for acute grief and treatment recommendations. Continue with supportive care. Will recheck labs in AM to monitor blood counts, electrolytes and renal function. Case management assisting with discharge planning. Dr. Lewis to assume care on 03/03/18.
[2018-04-10] MEDS: ACETAMINOPHEN 325 MG TABLET PO SCH ×4 (08:55→21:58)
[2018-04-10] MEDS: AMLODIPINE 5 MG TABLET PO SCH (08:56)
[2018-04-10] MEDS: METFORMIN 1,000 MG TABLET PO SCH ×2 (08:56→17:38)
[2018-04-10] MEDS: ESCITALOPRAM 20 MG TABLET PO SCH (08:56)
[2018-04-10] MEDS: FERROUS GLUCONATE 324 MG TABLET PO SCH (08:56)
[2018-04-10] MEDS: CARVEDILOL 6.25 MG TABLET PO SCH ×2 (08:56→17:38)
[2018-04-10] MEDS: CYANOCOBALAMIN (B-12) 500mcg TABLET PO SCH (08:56)
[2018-04-10] MEDS: CLOPIDOGREL 75 MG TABLET PO SCH (08:56)
[2018-04-10] MEDS: MIRTAZAPINE 15 MG TABLET PO SCH (22:02)
[2018-04-10] MEDS: RANITIDINE 150 MG TABLET PO SCH (22:02)
[2018-04-10] MEDS: QUETIAPINE 50 MG TABLET PO SCH (22:02)
[2018-04-10] MEDS: TAMSULOSIN 0.4 MG CAPSULE PO SCH (22:03)
[2018-04-10] MEDS: SUCRALFATE 1 GM TABLET PO SCH (22:03)
[2018-04-11] MEDS: METFORMIN 1,000 MG TABLET PO SCH ×2 (08:47→16:42)
[2018-04-11] MEDS: ESCITALOPRAM 20 MG TABLET PO SCH (08:48)
[2018-04-11] MEDS: CARVEDILOL 6.25 MG TABLET PO SCH ×2 (08:48→16:43)
[2018-04-11] MEDS: CYANOCOBALAMIN (B-12) 500mcg TABLET PO SCH (08:48)
[2018-04-11] MEDS: FERROUS GLUCONATE 324 MG TABLET PO SCH (08:48)
[2018-04-11] MEDS: ACETAMINOPHEN 325 MG TABLET PO SCH ×4 (09:09→21:20)
[2018-04-11] MEDS: CLOPIDOGREL 75 MG TABLET PO SCH (09:09)
[2018-04-11] MEDS: AMLODIPINE 5 MG TABLET PO SCH (09:09)
--- NOTE | 2018-04-11 09:22 | Orthopedic Progress Note ---
Date: Date: 04/11/18 Time: 920 Subjective/Severity of Illness: Jonathan was resting this AM and therefore I did not wake him. Orthopedic Exam Vital signs: Temperature 95.9 F L 02/05/18 15:57 Pulse Rate 64 02/05/18 15:57 Respiratory Rate 18 02/05/18 15:57 Blood Pressure 149/69 H 02/05/18 15:57 Pulse Oximetry 97 02/05/18 15:57 Vital Signs Temp Pulse Resp BP Pulse Ox 02/16/18 07:34 97.2 F 61 16 165/73 H 96 02/16/18 04:00 97.4 F 59 L 16 164/72 H 92 02/16/18 00:00 97.2 F 65 16 140/71 H 94 02/15/18 20:00 96.7 F L 66 20 106/56 93 02/15/18 16:36 96.6 F L 65 16 144/67 H 95 02/15/18 12:00 96.5 F L 61 16 159/71 H 94 Intake and Output 02/15/18 02/16/18 02/16/18 22:59 06:59 14:59 Intake Total 240 / 240 Output Total 200 / 200 350 / 350 Balance -200 / -200 -350 / -350 240 / 240 Intake: Oral 240 / 240 Output: Urine 200 / 200 350 / 350 Other: Urine Appearance Clear Clear Urine Color Yellow Yellow Stool Color Brown Stool Consistency Soft Size of Bowel Movement Smear # Voids 1 Weight 229 lb 11.547 oz Patient Weight 02/17/18 06:59 Weight 229 lb 11.547 oz - Constitutional General Appearance: Present: well developed, well nourished - Respiratory Exam Present: non-labored - Dressing Dressing: other (No dressing. Wound is healed.) - Hip Exam right Hip Exam: Present: alignment normal - Labs Result Diagrams: 03/21/18 10:00 03/21/18 10:00 H & H 02/04/18 02/07/18 02/11/18 Range/Units 11:33 04:16 17:57 Hgb 9.8 L 9.2 L 9.6 L (13.5-17.5) GM/DL Hct 31.2 L 29.4 L 30.6 L (41-53) % 02/14/18 02/14/18 02/14/18 Range/Units 04:09 13:13 17:37 Hgb 8.7 L 9.8 L D 10.6 L (13.5-17.5) GM/DL Hct 27.9 L 31.5 L D (41-53) % 02/14/18 02/16/18 02/18/18 Range/Units 21:43 04:34 03:56 Hgb 10.9 L 10.7 L 10.8 L (13.5-17.5) GM/DL Hct 33.3 L 33.4 L (41-53) % 02/18/18 02/19/18 02/20/18 Range/Units 21:15 04:47 04:18 Hgb 9.3 L D 8.5 L 7.0 L D (13.5-17.5) GM/DL Hct 28.4 L D 26.5 L 21.9 L D (41-53) % 02/20/18 02/21/18 02/22/18 Range/Units 12:49 04:31 04:09 Hgb 7.9 L D 7.4 L 7.2 L (13.5-17.5) GM/DL Hct 23.2 L 22.7 L (41-53) % 02/23/18 02/24/18 02/25/18 Range/Units 03:57 04:12 04:11 Hgb 7.6 L 7.4 L 7.3 L (13.5-17.5) GM/DL Hct 23.6 L 23.0 L 23.2 L (41-53) % 02/26/18 03/03/18 03/08/18 Range/Units 03:58 04:03 04:49 Hgb 7.5 L 7.8 L 9.1 L (13.5-17.5) GM/DL Hct 23.8 L 25.0 L 29.4 L (41-53) % 03/21/18 Range/Units 10:00 Hgb 9.7 L (13.5-17.5) GM/DL Hct 30.1 L (41-53) % Orthopedic Assessment and Plan (1) Hip dislocation, right Status: Acute Qualifiers: Encounter type: initial encounter Qualified Code(s): S73.004A - Unspecified dislocation of right hip, initial encounter Problem Details: Recurrent, closed reduction in OR 02/04/18, 02/06/18, 02/12/18--> VAIBHAV 02/18/18 Assessment and Plan: Mr Foley was taken to the OR on 02/04/18, 02/06/18 & 02/12/18 for closed reduction of the right hip under anesthesia. 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 Continue hip precautions. Await placement. 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 Gaming Guardianship/conservator still pending, see CM notes for details. Wound consult- managing pressure ulcers on bilateral heels. Dr. Tejada managing depression. Current anti-coagulation protocol- Plavix 75mg daily. ASA 81mg. SCD's for added protection - Additional Diagnoses Atrial Fibrillation: rate controlled Diabetes: resume oral medications, other (Has been under good control.) CAD: no active chest pain Anemia: no intervention required Hospital Course Summary Disclaimer: The visit summary below is not to be considered part of the above Progress Note. 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 Psychiatric evaluation suggested that the patient is not competent to make his own medication decisions. Case management is working on obtaining a guardian for the patient for consent to do a hip revision. Patient remains at high risk for recurrent dislocation, especially if transferred to penitentiary as [facility] nursing staff is well educated on precautions. Continue with current cares. Continue wedge pillow and straight leg immobilizer to minimize risk. Encourage participation in therapies to work with him on precautions and ambulation. Continue with bowel motivation. Recheck labs in AM to monitor blood counts, electrolytes and renal function. 02/16/18 [place] - Covering for Dr Lewis Clinically doing well. Forgetful about hip precautions. Plavix on hold for upcoming surgical procedure. Will start SCD for DVT prevention. Blood pressure and blood sugars stable - continue with current treatment. Encourage participation in therapies to work with him on precautions and ambulation. Patient remains at high risk for recurrent dislocation, especially if transferred to penitentiary as [facility] nursing staff is well educated on precautions. Anticipate Dr Lewis's return tomorrow. 02/19/18 [place] - Covering for Dr eLwis Will decrease IVF to 50cc/hr - oral drive with decrease. Encourage nursing to give Dulcolax to help with bowel function. Urine output slow-will place Herman, start bladder retraining, and initiate Flomax. Nursing not able to place Herman as pt very resistant to that intervention. Will hold on Herman, but continue Flomax. Continue with post op pain control and therapy. Blood sugars and pressure stable with current regimen. Lab ordered for tomorrow. 02/20/18 [place] - covering for Dr Lewis Hgb down to 7.0; will type and cross for 1 unit PRBC. With weight trending up give Lasix post-transfusion. DC IVF. Oral intake starting to improve today. Start tracking I/O - if UO does not improve may need to restart IVF. Renal function is stable. Constipation - BM on 02/1802/21/[address] Lewis Hgb 7.4, s/p 1 unit PRBC transfusion yesterday (and 2 units on 02/14). Dressing is reportedly c/d/i without drainage. Check stool for occult blood. Iron level was low at 34 on on 02/11. Platelets also showing downward trend: Hold naproxen & ASA. He is hemodynamically stable. Weight continues to trend up; he is up 6 kg from date of admission. Anemia could be partly dilutional in nature. Unable to calculate I/O d/t urinary incontinence. He is maintaining saturations on room air. CXR yesterday was negative. Electrolytes/renal function stable. 02/22/18 Hgb 7.2, s/p 3 unit PRBC during hospital course and has been treated with IV iron. Oral iron initiated. Hemoccult pending. Anticipate probable need for additional blood tomorrow, type and screen in a.m. Iron level was low at 34 on on 02/11. Hold naproxen & ASA. May be hemolyzing blood previously transfused, bilirubin normal yesterday-Check haptoglobin/LDH with labs tomorrow. Weight down 3 kg from yesterday but remains positive through the hospitalization and hemoglobin down slightly despite negative fluid balance yesterday. Patient describe dysuria yesterday and urinary frequency which he indicated has been present for about 6 months, UA negative. Urine volumes improving since Flomax initiated. Constipation resolved. Limited activity with physical therapy; guardianship pending to permit placement. 02/23/18 Hgb 7.6-slightly improved today, s/p 3 unit PRBC during hospital course and (2 units preceded VAIBHAV) and has been treated with IV iron. Oral iron initiated. Hemoccult pending. Continue iron therapy; no clear evidence of hemolysis thus far. Continue to monitor hemoglobin daily until above 8. Last bowel movement at least 4-5 days ago-MiraLAX/Senokot doses increased; may require milk of magnesia or alternate stimulant. Much more interactive/appropriate responses today. Will discuss with case management tomorrow, may benefit from repeat psychiatric assessment of competency. 02/24/18 Hgb 7.4. Stool for occult blood is pending. B12 also pending. Continue iron. ASA and Naproxen are on hold. Constipation - last BM 02/21 per RN. Will give Dulcolax today if no results. Good oral intake. VSS; hemodynamically stable. 02/25/18 Hgb 7.3. Stool for occult blood is pending (had BM last night but Hemoccult was not sent). B12 low normal at 272 - methylmalonic acid level ordered; initiate oral B-12 supplementation. Haptoglobin pending. Continue iron. ASA and Naproxen are on hold. Continues on Plavix. VSS; hemodynamically stable. Largely asymptomatic in regards to persistent anemia. Weight is up 2 kg over the past 48 hours-Lasix to be given again today. 02/26/18 [place] - Covering for Dr. Lewis Hemoglobin largely stable at 7.5 this am. Pain controlled. Tolerating therapy. Blood pressure and blood sugars stable - continue treatments. Continue with supportive care, support, and therapy. Anticipate Dr Lewis's return tomorrow. 03/01/18 [place] - Covering for Dr. Lewis Medically doing well-BP, sugars, vitals stable. Emotional support for loss of spouse - very difficult transition for him. Continue with supportive care. Plan - 03/02/18: Covering for Dr. Lewis Medically doing well-BP, sugars, vitals stable. Emotional support for loss of spouse - very difficult transition for him. May consider psychiatric consult for acute grief and treatment recommendations. Continue with supportive care. Will recheck labs in AM to monitor blood counts, electrolytes and renal function. Case management assisting with discharge planning. Dr. Lewis to assume care on 03/03/18.
[2018-04-11] MEDS: RANITIDINE 150 MG TABLET PO SCH (21:20)
[2018-04-11] MEDS: TAMSULOSIN 0.4 MG CAPSULE PO SCH (21:20)
[2018-04-11] MEDS: SUCRALFATE 1 GM TABLET PO SCH (21:21)
[2018-04-11] MEDS: MIRTAZAPINE 15 MG TABLET PO SCH (21:21)
[2018-04-11] MEDS: QUETIAPINE 50 MG TABLET PO SCH (21:22)
[2018-04-12] MEDS: CLOPIDOGREL 75 MG TABLET PO SCH (08:57)
[2018-04-12] MEDS: ACETAMINOPHEN 325 MG TABLET PO SCH ×4 (08:57→20:42)
[2018-04-12] MEDS: CARVEDILOL 6.25 MG TABLET PO SCH ×2 (08:58→17:10)
[2018-04-12] MEDS: CYANOCOBALAMIN (B-12) 500mcg TABLET PO SCH (08:58)
[2018-04-12] MEDS: FERROUS GLUCONATE 324 MG TABLET PO SCH (08:58)
[2018-04-12] MEDS: ESCITALOPRAM 20 MG TABLET PO SCH (08:58)
[2018-04-12] MEDS: AMLODIPINE 5 MG TABLET PO SCH (08:58)
[2018-04-12] MEDS: METFORMIN 1,000 MG TABLET PO SCH ×2 (08:58→17:10)
[2018-04-12] MEDS: RANITIDINE 150 MG TABLET PO SCH (20:42)
[2018-04-12] MEDS: MIRTAZAPINE 15 MG TABLET PO SCH (20:42)
[2018-04-12] MEDS: QUETIAPINE 50 MG TABLET PO SCH (20:42)
[2018-04-12] MEDS: SUCRALFATE 1 GM TABLET PO SCH (20:42)
[2018-04-12] MEDS: TAMSULOSIN 0.4 MG CAPSULE PO SCH (20:42)
[2018-04-12] MEDS ORDERED: FALL RISK - PHARMACY CONSULT MC ONE (20:46)
[2018-04-13] MEDS: CYANOCOBALAMIN (B-12) 500mcg TABLET PO SCH (09:54)
[2018-04-13] MEDS: AMLODIPINE 5 MG TABLET PO SCH (09:55)
[2018-04-13] MEDS: FERROUS GLUCONATE 324 MG TABLET PO SCH (09:55)
[2018-04-13] MEDS: ACETAMINOPHEN 325 MG TABLET PO SCH ×4 (09:55→20:23)
[2018-04-13] MEDS: METFORMIN 1,000 MG TABLET PO SCH ×2 (09:55→17:16)
[2018-04-13] MEDS: CLOPIDOGREL 75 MG TABLET PO SCH (09:55)
[2018-04-13] MEDS: CARVEDILOL 6.25 MG TABLET PO SCH ×2 (09:55→17:17)
[2018-04-13] MEDS: ESCITALOPRAM 20 MG TABLET PO SCH (09:56)
[2018-04-13] MEDS: RANITIDINE 150 MG TABLET PO SCH (20:23)
[2018-04-13] MEDS: QUETIAPINE 50 MG TABLET PO SCH (20:23)
[2018-04-13] MEDS: TAMSULOSIN 0.4 MG CAPSULE PO SCH (20:23)
[2018-04-13] MEDS: MIRTAZAPINE 15 MG TABLET PO SCH (20:23)
[2018-04-13] MEDS: SUCRALFATE 1 GM TABLET PO SCH (20:23)
[2018-04-14] MEDS: CYANOCOBALAMIN (B-12) 500mcg TABLET PO SCH (08:52)
[2018-04-14] MEDS: CARVEDILOL 6.25 MG TABLET PO SCH ×2 (08:53→17:29)
[2018-04-14] MEDS: FERROUS GLUCONATE 324 MG TABLET PO SCH (08:53)
[2018-04-14] MEDS: ESCITALOPRAM 20 MG TABLET PO SCH (08:53)
[2018-04-14] MEDS: CLOPIDOGREL 75 MG TABLET PO SCH (08:53)
[2018-04-14] MEDS: AMLODIPINE 5 MG TABLET PO SCH (08:53)
[2018-04-14] MEDS: METFORMIN 1,000 MG TABLET PO SCH ×2 (08:53→17:29)
[2018-04-14] MEDS: SUCRALFATE 1 GM TABLET PO SCH (20:09)
[2018-04-14] MEDS: TAMSULOSIN 0.4 MG CAPSULE PO SCH (20:09)
[2018-04-14] MEDS: QUETIAPINE 50 MG TABLET PO SCH (20:09)
[2018-04-14] MEDS: MIRTAZAPINE 15 MG TABLET PO SCH (20:09)
[2018-04-14] MEDS: RANITIDINE 150 MG TABLET PO SCH (20:09)
[2018-04-15] MEDS: CARVEDILOL 6.25 MG TABLET PO SCH ×2 (09:37→16:40)
[2018-04-15] MEDS: FERROUS GLUCONATE 324 MG TABLET PO SCH (09:37)
[2018-04-15] MEDS: ESCITALOPRAM 20 MG TABLET PO SCH (09:37)
[2018-04-15] MEDS: CYANOCOBALAMIN (B-12) 500mcg TABLET PO SCH (09:37)
[2018-04-15] MEDS: METFORMIN 1,000 MG TABLET PO SCH ×2 (09:37→16:40)
[2018-04-15] MEDS: AMLODIPINE 5 MG TABLET PO SCH (09:37)
[2018-04-15] MEDS: CLOPIDOGREL 75 MG TABLET PO SCH (09:38)
--- NOTE | 2018-04-15 10:19 | Orthopedic Progress Note ---
Date: Date: 04/15/18 Time: 1017 Subjective/Severity of Illness: Mr. Foley is doing well sitting up in his chair this morning. He is getting ready to go ride stationary bike with PT. He is pleasant this morning and appears in good spirit. Denies any concerns or complaints. Exam - Constitutional Vital Signs: Temperature 96.1 F L 04/15/18 07:00 Pulse Rate 72 04/15/18 07:00 Respiratory Rate 16 04/15/18 07:00 Blood Pressure 141/69 H 04/15/18 07:00 Pulse Oximetry 95 04/15/18 07:00 General: healthy appearing, no acute distress, well developed, well groomed Nutritional Appearance: well nourished Orientation: alert, oriented x3 - RLE Neurological: no deficits Vascular: dorsalis pedis pulse within normal limits - LLE Neurological: no deficits Vascular: dorsalis pedis pulse within normal limits - Respiratory Respiratory Exam: non-labored - Cardiac Cardiovascular exam: pedal pulses intact - Abdominal GI/Abdominal Exam: soft - Wound Right Heel Wound Drainage Odor: No Odor - Labs Result Diagrams: 03/21/18 10:00 03/21/18 10:00 H & H 02/04/18 02/07/18 02/11/18 Range/Units 11:33 04:16 17:57 Hgb 9.8 L 9.2 L 9.6 L (13.5-17.5) GM/DL Hct 31.2 L 29.4 L 30.6 L (41-53) % 02/14/18 02/14/18 02/14/18 Range/Units 04:09 13:13 17:37 Hgb 8.7 L 9.8 L D 10.6 L (13.5-17.5) GM/DL Hct 27.9 L 31.5 L D (41-53) % 02/14/18 02/16/18 02/18/18 Range/Units 21:43 04:34 03:56 Hgb 10.9 L 10.7 L 10.8 L (13.5-17.5) GM/DL Hct 33.3 L 33.4 L (41-53) % 02/18/18 02/19/18 02/20/18 Range/Units 21:15 04:47 04:18 Hgb 9.3 L D 8.5 L 7.0 L D (13.5-17.5) GM/DL Hct 28.4 L D 26.5 L 21.9 L D (41-53) % 02/20/18 02/21/18 02/22/18 Range/Units 12:49 04:31 04:09 Hgb 7.9 L D 7.4 L 7.2 L (13.5-17.5) GM/DL Hct 23.2 L 22.7 L (41-53) % 02/23/18 02/24/18 02/25/18 Range/Units 03:57 04:12 04:11 Hgb 7.6 L 7.4 L 7.3 L (13.5-17.5) GM/DL Hct 23.6 L 23.0 L 23.2 L (41-53) % 02/26/18 03/03/18 03/08/18 Range/Units 03:58 04:03 04:49 Hgb 7.5 L 7.8 L 9.1 L (13.5-17.5) GM/DL Hct 23.8 L 25.0 L 29.4 L (41-53) % 03/21/18 Range/Units 10:00 Hgb 9.7 L (13.5-17.5) GM/DL Hct 30.1 L (41-53) % Orthopedic Assessment and Plan (1) Hip dislocation, right Status: Acute Qualifiers: Encounter type: initial encounter Qualified Code(s): S73.004A - Unspecified dislocation of right hip, initial encounter Problem Details: Recurrent, closed reduction in OR 02/04/18, 02/06/18, 02/12/18--> VAIBHAV 02/18/18 Assessment and Plan: Mr Foley was taken to the OR on 02/04/18, 02/06/18 & 02/12/18 for closed reduction of the right hip under anesthesia. 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 Continue hip precautions. Await placement. 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 Gaming Guardianship/conservator still pending, see CM notes for details. Wound consult- managing pressure ulcers on bilateral heels. Dr. Tejada managing depression. Current anti-coagulation protocol- Plavix 75mg daily. ASA 81mg. SCD's for added protection - Additional Diagnoses Atrial Fibrillation: rate controlled Diabetes: resume oral medications, other (Has been under good control.) CAD: no active chest pain Anemia: no intervention required Hospital Course Summary Disclaimer: The visit summary below is not to be considered part of the above Progress Note. 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 Psychiatric evaluation suggested that the patient is not competent to make his own medication decisions. Case management is working on obtaining a guardian for the patient for consent to do a hip revision. Patient remains at high risk for recurrent dislocation, especially if transferred to intermediate as [facility] nursing staff is well educated on precautions. Continue with current cares. Continue wedge pillow and straight leg immobilizer to minimize risk. Encourage participation in therapies to work with him on precautions and ambulation. Continue with bowel motivation. Recheck labs in AM to monitor blood counts, electrolytes and renal function. 02/16/18 [place] - Covering for Dr Lewis Clinically doing well. Forgetful about hip precautions. Plavix on hold for upcoming surgical procedure. Will start SCD for DVT prevention. Blood pressure and blood sugars stable - continue with current treatment. Encourage participation in therapies to work with him on precautions and ambulation. Patient remains at high risk for recurrent dislocation, especially if transferred to intermediate as [facility] nursing staff is well educated on precautions. Anticipate Dr Lewis's return tomorrow. 02/19/18 [place] - Covering for Dr Lewis Will decrease IVF to 50cc/hr - oral drive with decrease. Encourage nursing to give Dulcolax to help with bowel function. Urine output slow-will place Herman, start bladder retraining, and initiate Flomax. Nursing not able to place Herman as pt very resistant to that intervention. Will hold on Herman, but continue Flomax. Continue with post op pain control and therapy. Blood sugars and pressure stable with current regimen. Lab ordered for tomorrow. 02/20/18 [place] - covering for Dr Lewis Hgb down to 7.0; will type and cross for 1 unit PRBC. With weight trending up give Lasix post-transfusion. DC IVF. Oral intake starting to improve today. Start tracking I/O - if UO does not improve may need to restart IVF. Renal function is stable. Constipation - BM on 02/1802/21/[address] Lewis Hgb 7.4, s/p 1 unit PRBC transfusion yesterday (and 2 units on 02/14). Dressing is reportedly c/d/i without drainage. Check stool for occult blood. Iron level was low at 34 on on 02/11. Platelets also showing downward trend: Hold naproxen & ASA. He is hemodynamically stable. Weight continues to trend up; he is up 6 kg from date of admission. Anemia could be partly dilutional in nature. Unable to calculate I/O d/t urinary incontinence. He is maintaining saturations on room air. CXR yesterday was negative. Electrolytes/renal function stable. 02/22/18 Hgb 7.2, s/p 3 unit PRBC during hospital course and has been treated with IV iron. Oral iron initiated. Hemoccult pending. Anticipate probable need for additional blood tomorrow, type and screen in a.m. Iron level was low at 34 on on 02/11. Hold naproxen & ASA. May be hemolyzing blood previously transfused, bilirubin normal yesterday-Check haptoglobin/LDH with labs tomorrow. Weight down 3 kg from yesterday but remains positive through the hospitalization and hemoglobin down slightly despite negative fluid balance yesterday. Patient describe dysuria yesterday and urinary frequency which he indicated has been present for about 6 months, UA negative. Urine volumes improving since Flomax initiated. Constipation resolved. Limited activity with physical therapy; guardianship pending to permit placement. 02/23/18 Hgb 7.6-slightly improved today, s/p 3 unit PRBC during hospital course and (2 units preceded VAIBHAV) and has been treated with IV iron. Oral iron initiated. Hemoccult pending. Continue iron therapy; no clear evidence of hemolysis thus far. Continue to monitor hemoglobin daily until above 8. Last bowel movement at least 4-5 days ago-MiraLAX/Senokot doses increased; may require milk of magnesia or alternate stimulant. Much more interactive/appropriate responses today. Will discuss with case management tomorrow, may benefit from repeat psychiatric assessment of competency. 02/24/18 Hgb 7.4. Stool for occult blood is pending. B12 also pending. Continue iron. ASA and Naproxen are on hold. Constipation - last BM 02/21 per RN. Will give Dulcolax today if no results. Good oral intake. VSS; hemodynamically stable. 02/25/18 Hgb 7.3. Stool for occult blood is pending (had BM last night but Hemoccult was not sent). B12 low normal at 272 - methylmalonic acid level ordered; initiate oral B-12 supplementation. Haptoglobin pending. Continue iron. ASA and Naproxen are on hold. Continues on Plavix. VSS; hemodynamically stable. Largely asymptomatic in regards to persistent anemia. Weight is up 2 kg over the past 48 hours-Lasix to be given again today. 02/26/18 [place] - Covering for Dr. Lewis Hemoglobin largely stable at 7.5 this am. Pain controlled. Tolerating therapy. Blood pressure and blood sugars stable - continue treatments. Continue with supportive care, support, and therapy. Anticipate Dr Lewis's return tomorrow. 03/01/18 [place] - Covering for Dr. Lewis Medically doing well-BP, sugars, vitals stable. Emotional support for loss of spouse - very difficult transition for him. Continue with supportive care. Plan - 03/02/18: Covering for Dr. Lewis Medically doing well-BP, sugars, vitals stable. Emotional support for loss of spouse - very difficult transition for him. May consider psychiatric consult for acute grief and treatment recommendations. Continue with supportive care. Will recheck labs in AM to monitor blood counts, electrolytes and renal function. Case management assisting with discharge planning. Dr. Lewis to assume care on 03/03/18.
[2018-04-15] MEDS: QUETIAPINE 50 MG TABLET PO SCH (20:27)
[2018-04-15] MEDS: MIRTAZAPINE 15 MG TABLET PO SCH (20:27)
[2018-04-15] MEDS: RANITIDINE 150 MG TABLET PO SCH (20:27)
[2018-04-15] MEDS: SUCRALFATE 1 GM TABLET PO SCH (20:27)
[2018-04-15] MEDS: TAMSULOSIN 0.4 MG CAPSULE PO SCH (20:28)
--- NOTE | 2018-04-16 08:10 | Orthopedic Progress Note ---
Date: Date: 04/16/18 Time: 807 Subjective/Severity of Illness: Jonathan is asleep in his bed this morning, easily arousable. Denies any complaints or concerns. Exam - Constitutional Vital Signs: Temperature 96.8 F 04/16/18 07:00 Pulse Rate 60 04/16/18 07:00 Respiratory Rate 16 04/16/18 07:00 Blood Pressure 156/79 H 04/16/18 07:00 Pulse Oximetry 93 04/16/18 07:00 General: healthy appearing, no acute distress, well developed, well groomed Nutritional Appearance: well nourished Orientation: alert, oriented x3 - RUE Vascular: radial pulse within normal limits - LUE Vascular: radial pulse within normal limits - RLE Vascular: dorsalis pedis pulse within normal limits - LLE Vascular: dorsalis pedis pulse within normal limits - Respiratory Respiratory Exam: CTA bilaterally, non-labored - Cardiac Cardiovascular exam: Regular Rate/Rhythm, pedal pulses intact - Abdominal GI/Abdominal Exam: soft, normoactive BS x4 - Labs Result Diagrams: 03/21/18 10:00 03/21/18 10:00 H & H 02/04/18 02/07/18 02/11/18 Range/Units 11:33 04:16 17:57 Hgb 9.8 L 9.2 L 9.6 L (13.5-17.5) GM/DL Hct 31.2 L 29.4 L 30.6 L (41-53) % 02/14/18 02/14/18 02/14/18 Range/Units 04:09 13:13 17:37 Hgb 8.7 L 9.8 L D 10.6 L (13.5-17.5) GM/DL Hct 27.9 L 31.5 L D (41-53) % 02/14/18 02/16/18 02/18/18 Range/Units 21:43 04:34 03:56 Hgb 10.9 L 10.7 L 10.8 L (13.5-17.5) GM/DL Hct 33.3 L 33.4 L (41-53) % 02/18/18 02/19/18 02/20/18 Range/Units 21:15 04:47 04:18 Hgb 9.3 L D 8.5 L 7.0 L D (13.5-17.5) GM/DL Hct 28.4 L D 26.5 L 21.9 L D (41-53) % 02/20/18 02/21/18 02/22/18 Range/Units 12:49 04:31 04:09 Hgb 7.9 L D 7.4 L 7.2 L (13.5-17.5) GM/DL Hct 23.2 L 22.7 L (41-53) % 02/23/18 02/24/18 02/25/18 Range/Units 03:57 04:12 04:11 Hgb 7.6 L 7.4 L 7.3 L (13.5-17.5) GM/DL Hct 23.6 L 23.0 L 23.2 L (41-53) % 02/26/18 03/03/18 03/08/18 Range/Units 03:58 04:03 04:49 Hgb 7.5 L 7.8 L 9.1 L (13.5-17.5) GM/DL Hct 23.8 L 25.0 L 29.4 L (41-53) % 03/21/18 Range/Units 10:00 Hgb 9.7 L (13.5-17.5) GM/DL Hct 30.1 L (41-53) % Orthopedic Assessment and Plan (1) Hip dislocation, right Status: Acute Qualifiers: Encounter type: initial encounter Qualified Code(s): S73.004A - Unspecified dislocation of right hip, initial encounter Problem Details: Recurrent, closed reduction in OR 02/04/18, 02/06/18, 02/12/18--> VAIBHAV 02/18/18 Assessment and Plan: Mr Foley was taken to the OR on 02/04/18, 02/06/18 & 02/12/18 for closed reduction of the right hip under anesthesia. 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 Continue hip precautions. Await placement. 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 Gaming Guardianship/conservator still pending, see CM notes for details. Wound consult- managing pressure ulcers on bilateral heels. Dr. Tejada managing depression. Current anti-coagulation protocol- Plavix 75mg daily. ASA 81mg. SCD's for added protection - Additional Diagnoses Atrial Fibrillation: rate controlled Diabetes: resume oral medications, other (Has been under good control.) CAD: no active chest pain Anemia: no intervention required Hospital Course Summary Disclaimer: The visit summary below is not to be considered part of the above Progress Note. 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 Psychiatric evaluation suggested that the patient is not competent to make his own medication decisions. Case management is working on obtaining a guardian for the patient for consent to do a hip revision. Patient remains at high risk for recurrent dislocation, especially if transferred to residential as [facility] nursing staff is well educated on precautions. Continue with current cares. Continue wedge pillow and straight leg immobilizer to minimize risk. Encourage participation in therapies to work with him on precautions and ambulation. Continue with bowel motivation. Recheck labs in AM to monitor blood counts, electrolytes and renal function. 02/16/18 [place] - Covering for Dr Lewis Clinically doing well. Forgetful about hip precautions. Plavix on hold for upcoming surgical procedure. Will start SCD for DVT prevention. Blood pressure and blood sugars stable - continue with current treatment. Encourage participation in therapies to work with him on precautions and ambulation. Patient remains at high risk for recurrent dislocation, especially if transferred to residential as [facility] nursing staff is well educated on precautions. Anticipate Dr Lewis's return tomorrow. 02/19/18 [place] - Covering for Dr Lewis Will decrease IVF to 50cc/hr - oral drive with decrease. Encourage nursing to give Dulcolax to help with bowel function. Urine output slow-will place Herman, start bladder retraining, and initiate Flomax. Nursing not able to place Herman as pt very resistant to that intervention. Will hold on Herman, but continue Flomax. Continue with post op pain control and therapy. Blood sugars and pressure stable with current regimen. Lab ordered for tomorrow. 02/20/18 [place] - covering for Dr Lewis Hgb down to 7.0; will type and cross for 1 unit PRBC. With weight trending up give Lasix post-transfusion. DC IVF. Oral intake starting to improve today. Start tracking I/O - if UO does not improve may need to restart IVF. Renal function is stable. Constipation - BM on 02/1802/21/[address] Lewis Hgb 7.4, s/p 1 unit PRBC transfusion yesterday (and 2 units on 02/14). Dressing is reportedly c/d/i without drainage. Check stool for occult blood. Iron level was low at 34 on on 02/11. Platelets also showing downward trend: Hold naproxen & ASA. He is hemodynamically stable. Weight continues to trend up; he is up 6 kg from date of admission. Anemia could be partly dilutional in nature. Unable to calculate I/O d/t urinary incontinence. He is maintaining saturations on room air. CXR yesterday was negative. Electrolytes/renal function stable. 02/22/18 Hgb 7.2, s/p 3 unit PRBC during hospital course and has been treated with IV iron. Oral iron initiated. Hemoccult pending. Anticipate probable need for additional blood tomorrow, type and screen in a.m. Iron level was low at 34 on on 02/11. Hold naproxen & ASA. May be hemolyzing blood previously transfused, bilirubin normal yesterday-Check haptoglobin/LDH with labs tomorrow. Weight down 3 kg from yesterday but remains positive through the hospitalization and hemoglobin down slightly despite negative fluid balance yesterday. Patient describe dysuria yesterday and urinary frequency which he indicated has been present for about 6 months, UA negative. Urine volumes improving since Flomax initiated. Constipation resolved. Limited activity with physical therapy; guardianship pending to permit placement. 02/23/18 Hgb 7.6-slightly improved today, s/p 3 unit PRBC during hospital course and (2 units preceded VAIBHAV) and has been treated with IV iron. Oral iron initiated. Hemoccult pending. Continue iron therapy; no clear evidence of hemolysis thus far. Continue to monitor hemoglobin daily until above 8. Last bowel movement at least 4-5 days ago-MiraLAX/Senokot doses increased; may require milk of magnesia or alternate stimulant. Much more interactive/appropriate responses today. Will discuss with case management tomorrow, may benefit from repeat psychiatric assessment of competency. 02/24/18 Hgb 7.4. Stool for occult blood is pending. B12 also pending. Continue iron. ASA and Naproxen are on hold. Constipation - last BM 02/21 per RN. Will give Dulcolax today if no results. Good oral intake. VSS; hemodynamically stable. 02/25/18 Hgb 7.3. Stool for occult blood is pending (had BM last night but Hemoccult was not sent). B12 low normal at 272 - methylmalonic acid level ordered; initiate oral B-12 supplementation. Haptoglobin pending. Continue iron. ASA and Naproxen are on hold. Continues on Plavix. VSS; hemodynamically stable. Largely asymptomatic in regards to persistent anemia. Weight is up 2 kg over the past 48 hours-Lasix to be given again today. 02/26/18 [place] - Covering for Dr. Lewis Hemoglobin largely stable at 7.5 this am. Pain controlled. Tolerating therapy. Blood pressure and blood sugars stable - continue treatments. Continue with supportive care, support, and therapy. Anticipate Dr Lewis's return tomorrow. 03/01/18 [place] - Covering for Dr. Lewis Medically doing well-BP, sugars, vitals stable. Emotional support for loss of spouse - very difficult transition for him. Continue with supportive care. Plan - 03/02/18: Covering for Dr. Lewis Medically doing well-BP, sugars, vitals stable. Emotional support for loss of spouse - very difficult transition for him. May consider psychiatric consult for acute grief and treatment recommendations. Continue with supportive care. Will recheck labs in AM to monitor blood counts, electrolytes and renal function. Case management assisting with discharge planning. Dr. Lewis to assume care on 03/03/18.
[2018-04-16] MEDS: METFORMIN 1,000 MG TABLET PO SCH ×2 (09:18→18:07)
[2018-04-16] MEDS: FERROUS GLUCONATE 324 MG TABLET PO SCH (09:18)
[2018-04-16] MEDS: CLOPIDOGREL 75 MG TABLET PO SCH (09:18)
[2018-04-16] MEDS: CARVEDILOL 6.25 MG TABLET PO SCH ×2 (09:19→18:07)
[2018-04-16] MEDS: AMLODIPINE 5 MG TABLET PO SCH (09:19)
[2018-04-16] MEDS: ESCITALOPRAM 20 MG TABLET PO SCH (09:19)
[2018-04-16] MEDS: CYANOCOBALAMIN (B-12) 500mcg TABLET PO SCH (09:19)
[2018-04-16] MEDS: SUCRALFATE 1 GM TABLET PO SCH (21:24)
[2018-04-16] MEDS: TAMSULOSIN 0.4 MG CAPSULE PO SCH (21:24)
[2018-04-16] MEDS: MIRTAZAPINE 15 MG TABLET PO SCH (21:24)
[2018-04-16] MEDS: RANITIDINE 150 MG TABLET PO SCH (21:24)
[2018-04-16] MEDS: QUETIAPINE 50 MG TABLET PO SCH (21:25)
[2018-04-17] MEDS: FERROUS GLUCONATE 324 MG TABLET PO SCH (09:06)
[2018-04-17] MEDS: AMLODIPINE 5 MG TABLET PO SCH (09:06)
[2018-04-17] MEDS: METFORMIN 1,000 MG TABLET PO SCH ×2 (09:06→17:30)
[2018-04-17] MEDS: CARVEDILOL 6.25 MG TABLET PO SCH ×2 (09:06→17:31)
[2018-04-17] MEDS: ESCITALOPRAM 20 MG TABLET PO SCH (09:06)
[2018-04-17] MEDS: CLOPIDOGREL 75 MG TABLET PO SCH (09:07)
[2018-04-17] MEDS: CYANOCOBALAMIN (B-12) 500mcg TABLET PO SCH (09:07)
--- NOTE | 2018-04-17 11:52 | Orthopedic Progress Note ---
Date: Date: 04/17/18 Time: 1149 Subjective/Severity of Illness: Jonathan is sitting up in the chair this morning. Has been ambulating often, denies any concerns with his right hip. Denies CP, SOA, nausea. No concerns with urination, BMs have been regular. Exam - Constitutional Vital Signs: Temperature 97.4 F 04/17/18 09:01 Pulse Rate 63 04/17/18 09:01 Respiratory Rate 16 04/17/18 09:01 Blood Pressure 135/66 04/17/18 09:01 Pulse Oximetry 94 04/17/18 09:01 General: healthy appearing, no acute distress, well developed, well groomed Nutritional Appearance: well nourished Orientation: alert, oriented x3 - RLE Postoperative Appearance: extremity compartments are soft and nontender, neurovascullary intact to extremities Neurological: no deficits Vascular: dorsalis pedis pulse within normal limits - LLE Neurological: no deficits Vascular: dorsalis pedis pulse within normal limits - Respiratory Respiratory Exam: CTA bilaterally, non-labored - Cardiac Cardiovascular exam: Regular Rate/Rhythm, pedal pulses intact - Abdominal GI/Abdominal Exam: soft, normoactive BS x4 - Labs Result Diagrams: 03/21/18 10:00 03/21/18 10:00 H & H 02/04/18 02/07/18 02/11/18 Range/Units 11:33 04:16 17:57 Hgb 9.8 L 9.2 L 9.6 L (13.5-17.5) GM/DL Hct 31.2 L 29.4 L 30.6 L (41-53) % 02/14/18 02/14/18 02/14/18 Range/Units 04:09 13:13 17:37 Hgb 8.7 L 9.8 L D 10.6 L (13.5-17.5) GM/DL Hct 27.9 L 31.5 L D (41-53) % 02/14/18 02/16/18 02/18/18 Range/Units 21:43 04:34 03:56 Hgb 10.9 L 10.7 L 10.8 L (13.5-17.5) GM/DL Hct 33.3 L 33.4 L (41-53) % 02/18/18 02/19/18 02/20/18 Range/Units 21:15 04:47 04:18 Hgb 9.3 L D 8.5 L 7.0 L D (13.5-17.5) GM/DL Hct 28.4 L D 26.5 L 21.9 L D (41-53) % 02/20/18 02/21/18 02/22/18 Range/Units 12:49 04:31 04:09 Hgb 7.9 L D 7.4 L 7.2 L (13.5-17.5) GM/DL Hct 23.2 L 22.7 L (41-53) % 02/23/18 02/24/18 02/25/18 Range/Units 03:57 04:12 04:11 Hgb 7.6 L 7.4 L 7.3 L (13.5-17.5) GM/DL Hct 23.6 L 23.0 L 23.2 L (41-53) % 02/26/18 03/03/18 03/08/18 Range/Units 03:58 04:03 04:49 Hgb 7.5 L 7.8 L 9.1 L (13.5-17.5) GM/DL Hct 23.8 L 25.0 L 29.4 L (41-53) % 03/21/18 Range/Units 10:00 Hgb 9.7 L (13.5-17.5) GM/DL Hct 30.1 L (41-53) % Orthopedic Assessment and Plan (1) Hip dislocation, right Status: Acute Qualifiers: Encounter type: initial encounter Qualified Code(s): S73.004A - Unspecified dislocation of right hip, initial encounter Problem Details: Recurrent, closed reduction in OR 02/04/18, 02/06/18, 02/12/18--> VAIBHAV 02/18/18 Assessment and Plan: Mr Foley was taken to the OR on 02/04/18, 02/06/18 & 02/12/18 for closed reduction of the right hip under anesthesia. 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 Continue hip precautions. Await placement. 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 Gaming Guardianship/conservator still pending, see CM notes for details. Wound consult- managing pressure ulcers on bilateral heels. Dr. Tejada managing depression. Current anti-coagulation protocol- Plavix 75mg daily. ASA 81mg. SCD's for added protection - Additional Diagnoses Atrial Fibrillation: rate controlled Diabetes: resume oral medications, other (Has been under good control.) CAD: no active chest pain Anemia: no intervention required Hospital Course Summary Disclaimer: The visit summary below is not to be considered part of the above Progress Note. 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 Psychiatric evaluation suggested that the patient is not competent to make his own medication decisions. Case management is working on obtaining a guardian for the patient for consent to do a hip revision. Patient remains at high risk for recurrent dislocation, especially if transferred to care home as [facility] nursing staff is well educated on precautions. Continue with current cares. Continue wedge pillow and straight leg immobilizer to minimize risk. Encourage participation in therapies to work with him on precautions and ambulation. Continue with bowel motivation. Recheck labs in AM to monitor blood counts, electrolytes and renal function. 02/16/18 [place] - Covering for Dr Lewis Clinically doing well. Forgetful about hip precautions. Plavix on hold for upcoming surgical procedure. Will start SCD for DVT prevention. Blood pressure and blood sugars stable - continue with current treatment. Encourage participation in therapies to work with him on precautions and ambulation. Patient remains at high risk for recurrent dislocation, especially if transferred to care home as [facility] nursing staff is well educated on precautions. Anticipate Dr Lewis's return tomorrow. 02/19/18 [place] - Covering for Dr Lewis Will decrease IVF to 50cc/hr - oral drive with decrease. Encourage nursing to give Dulcolax to help with bowel function. Urine output slow-will place Herman, start bladder retraining, and initiate Flomax. Nursing not able to place Herman as pt very resistant to that intervention. Will hold on Herman, but continue Flomax. Continue with post op pain control and therapy. Blood sugars and pressure stable with current regimen. Lab ordered for tomorrow. 02/20/18 [place] - covering for Dr Lewis Hgb down to 7.0; will type and cross for 1 unit PRBC. With weight trending up give Lasix post-transfusion. DC IVF. Oral intake starting to improve today. Start tracking I/O - if UO does not improve may need to restart IVF. Renal function is stable. Constipation - BM on 02/1802/21/[address] Lewis Hgb 7.4, s/p 1 unit PRBC transfusion yesterday (and 2 units on 02/14). Dressing is reportedly c/d/i without drainage. Check stool for occult blood. Iron level was low at 34 on on 02/11. Platelets also showing downward trend: Hold naproxen & ASA. He is hemodynamically stable. Weight continues to trend up; he is up 6 kg from date of admission. Anemia could be partly dilutional in nature. Unable to calculate I/O d/t urinary incontinence. He is maintaining saturations on room air. CXR yesterday was negative. Electrolytes/renal function stable. 02/22/18 Hgb 7.2, s/p 3 unit PRBC during hospital course and has been treated with IV iron. Oral iron initiated. Hemoccult pending. Anticipate probable need for additional blood tomorrow, type and screen in a.m. Iron level was low at 34 on on 02/11. Hold naproxen & ASA. May be hemolyzing blood previously transfused, bilirubin normal yesterday-Check haptoglobin/LDH with labs tomorrow. Weight down 3 kg from yesterday but remains positive through the hospitalization and hemoglobin down slightly despite negative fluid balance yesterday. Patient describe dysuria yesterday and urinary frequency which he indicated has been present for about 6 months, UA negative. Urine volumes improving since Flomax initiated. Constipation resolved. Limited activity with physical therapy; guardianship pending to permit placement. 02/23/18 Hgb 7.6-slightly improved today, s/p 3 unit PRBC during hospital course and (2 units preceded VAIBHAV) and has been treated with IV iron. Oral iron initiated. Hemoccult pending. Continue iron therapy; no clear evidence of hemolysis thus far. Continue to monitor hemoglobin daily until above 8. Last bowel movement at least 4-5 days ago-MiraLAX/Senokot doses increased; may require milk of magnesia or alternate stimulant. Much more interactive/appropriate responses today. Will discuss with case management tomorrow, may benefit from repeat psychiatric assessment of competency. 02/24/18 Hgb 7.4. Stool for occult blood is pending. B12 also pending. Continue iron. ASA and Naproxen are on hold. Constipation - last BM 02/21 per RN. Will give Dulcolax today if no results. Good oral intake. VSS; hemodynamically stable. 02/25/18 Hgb 7.3. Stool for occult blood is pending (had BM last night but Hemoccult was not sent). B12 low normal at 272 - methylmalonic acid level ordered; initiate oral B-12 supplementation. Haptoglobin pending. Continue iron. ASA and Naproxen are on hold. Continues on Plavix. VSS; hemodynamically stable. Largely asymptomatic in regards to persistent anemia. Weight is up 2 kg over the past 48 hours-Lasix to be given again today. 02/26/18 [place] - Covering for Dr. Lewis Hemoglobin largely stable at 7.5 this am. Pain controlled. Tolerating therapy. Blood pressure and blood sugars stable - continue treatments. Continue with supportive care, support, and therapy. Anticipate Dr Lewis's return tomorrow. 03/01/18 [place] - Covering for Dr. Lewis Medically doing well-BP, sugars, vitals stable. Emotional support for loss of spouse - very difficult transition for him. Continue with supportive care. Plan - 03/02/18: Covering for Dr. Lewis Medically doing well-BP, sugars, vitals stable. Emotional support for loss of spouse - very difficult transition for him. May consider psychiatric consult for acute grief and treatment recommendations. Continue with supportive care. Will recheck labs in AM to monitor blood counts, electrolytes and renal function. Case management assisting with discharge planning. Dr. Lewis to assume care on 03/03/18.
[2018-04-17] MEDS: TAMSULOSIN 0.4 MG CAPSULE PO SCH (22:03)
[2018-04-17] MEDS: SUCRALFATE 1 GM TABLET PO SCH (22:03)
[2018-04-17] MEDS: QUETIAPINE 50 MG TABLET PO SCH (22:03)
[2018-04-17] MEDS: MIRTAZAPINE 15 MG TABLET PO SCH (22:03)
[2018-04-17] MEDS: RANITIDINE 150 MG TABLET PO SCH (22:03)
[2018-04-18] MEDS: METFORMIN 1,000 MG TABLET PO SCH ×2 (09:16→17:30)
[2018-04-18] MEDS: CYANOCOBALAMIN (B-12) 500mcg TABLET PO SCH (09:16)
[2018-04-18] MEDS: AMLODIPINE 5 MG TABLET PO SCH (09:17)
[2018-04-18] MEDS: CARVEDILOL 6.25 MG TABLET PO SCH ×2 (09:17→17:30)
[2018-04-18] MEDS: FERROUS GLUCONATE 324 MG TABLET PO SCH (09:17)
[2018-04-18] MEDS: CLOPIDOGREL 75 MG TABLET PO SCH (09:17)
[2018-04-18] MEDS: ESCITALOPRAM 20 MG TABLET PO SCH (09:17)
[2018-04-18] MEDS: TAMSULOSIN 0.4 MG CAPSULE PO SCH (21:51)
[2018-04-18] MEDS: SUCRALFATE 1 GM TABLET PO SCH (21:51)
[2018-04-18] MEDS: MIRTAZAPINE 15 MG TABLET PO SCH (21:51)
[2018-04-18] MEDS: QUETIAPINE 50 MG TABLET PO SCH (21:52)
[2018-04-18] MEDS: RANITIDINE 150 MG TABLET PO SCH (21:52)
[2018-04-19] MEDS: CLOPIDOGREL 75 MG TABLET PO SCH (08:27)
[2018-04-19] MEDS: CYANOCOBALAMIN (B-12) 500mcg TABLET PO SCH (08:27)
[2018-04-19] MEDS: METFORMIN 1,000 MG TABLET PO SCH ×2 (08:27→17:55)
[2018-04-19] MEDS: FERROUS GLUCONATE 324 MG TABLET PO SCH (08:27)
[2018-04-19] MEDS: CARVEDILOL 6.25 MG TABLET PO SCH ×2 (08:27→17:54)
[2018-04-19] MEDS: AMLODIPINE 5 MG TABLET PO SCH (08:27)
[2018-04-19] MEDS: ESCITALOPRAM 20 MG TABLET PO SCH (08:27)
[2018-04-19] MEDS: SUCRALFATE 1 GM TABLET PO SCH ×2 (19:57→22:01)
[2018-04-19] MEDS: TAMSULOSIN 0.4 MG CAPSULE PO SCH ×2 (19:57→22:01)
[2018-04-19] MEDS: RANITIDINE 150 MG TABLET PO SCH ×2 (19:57→22:01)
[2018-04-19] MEDS: QUETIAPINE 50 MG TABLET PO SCH ×2 (19:57→22:01)
[2018-04-19] MEDS: MIRTAZAPINE 15 MG TABLET PO SCH ×2 (19:57→22:01)
[2018-04-20] MEDS: CYANOCOBALAMIN (B-12) 500mcg TABLET PO SCH (11:05)
[2018-04-20] MEDS: ESCITALOPRAM 20 MG TABLET PO SCH (11:05)
[2018-04-20] MEDS: CLOPIDOGREL 75 MG TABLET PO SCH (11:06)
[2018-04-20] MEDS: CARVEDILOL 6.25 MG TABLET PO SCH ×2 (11:06→17:57)
[2018-04-20] MEDS: FERROUS GLUCONATE 324 MG TABLET PO SCH (11:06)
[2018-04-20] MEDS: METFORMIN 1,000 MG TABLET PO SCH ×2 (11:06→17:57)
[2018-04-20] MEDS: AMLODIPINE 5 MG TABLET PO SCH (11:06)
[2018-04-20] MEDS: MIRTAZAPINE 15 MG TABLET PO SCH (20:29)
[2018-04-20] MEDS: RANITIDINE 150 MG TABLET PO SCH (20:29)
[2018-04-20] MEDS: QUETIAPINE 50 MG TABLET PO SCH (20:29)
[2018-04-20] MEDS: TAMSULOSIN 0.4 MG CAPSULE PO SCH (20:30)
[2018-04-20] MEDS: SUCRALFATE 1 GM TABLET PO SCH (20:30)
[2018-04-20] MEDS ORDERED: FALL RISK - PHARMACY CONSULT MC ONE (21:38)
--- NOTE | 2018-04-21 09:16 | Orthopedic Progress Note ---
Date: Date: 04/21/18 Time: 910 Subjective/Severity of Illness: Mr. Castillo is sitting up in the chair this morning. Reports he has been more constipated over the weekend and would like to restart some prn medications for bowel motility. Otherwise doing well. Denies CP, SOA, nausea, abdominal pain. Exam - Constitutional Vital Signs: Temperature 97.6 F 04/21/18 07:11 Pulse Rate 66 04/21/18 07:11 Respiratory Rate 16 04/21/18 07:11 Blood Pressure 144/90 H 04/21/18 07:11 Pulse Oximetry 94 04/21/18 07:11 General: healthy appearing, no acute distress, well developed, well groomed Nutritional Appearance: well nourished Orientation: alert, oriented x3 - RUE Neurological: no deficits Vascular: radial pulse within normal limits - LUE Neurological: no deficits Vascular: radial pulse within normal limits - RLE Neurological: no deficits Vascular: dorsalis pedis pulse within normal limits - LLE Neurological: no deficits Vascular: dorsalis pedis pulse within normal limits - Respiratory Respiratory Exam: non-labored - Cardiac Cardiovascular exam: pedal pulses intact - Abdominal GI/Abdominal Exam: soft - Labs Result Diagrams: 03/21/18 10:00 03/21/18 10:00 H & H 02/04/18 02/07/18 02/11/18 Range/Units 11:33 04:16 17:57 Hgb 9.8 L 9.2 L 9.6 L (13.5-17.5) GM/DL Hct 31.2 L 29.4 L 30.6 L (41-53) % 02/14/18 02/14/18 02/14/18 Range/Units 04:09 13:13 17:37 Hgb 8.7 L 9.8 L D 10.6 L (13.5-17.5) GM/DL Hct 27.9 L 31.5 L D (41-53) % 02/14/18 02/16/18 02/18/18 Range/Units 21:43 04:34 03:56 Hgb 10.9 L 10.7 L 10.8 L (13.5-17.5) GM/DL Hct 33.3 L 33.4 L (41-53) % 02/18/18 02/19/18 02/20/18 Range/Units 21:15 04:47 04:18 Hgb 9.3 L D 8.5 L 7.0 L D (13.5-17.5) GM/DL Hct 28.4 L D 26.5 L 21.9 L D (41-53) % 02/20/18 02/21/18 02/22/18 Range/Units 12:49 04:31 04:09 Hgb 7.9 L D 7.4 L 7.2 L (13.5-17.5) GM/DL Hct 23.2 L 22.7 L (41-53) % 02/23/18 02/24/18 02/25/18 Range/Units 03:57 04:12 04:11 Hgb 7.6 L 7.4 L 7.3 L (13.5-17.5) GM/DL Hct 23.6 L 23.0 L 23.2 L (41-53) % 02/26/18 03/03/18 03/08/18 Range/Units 03:58 04:03 04:49 Hgb 7.5 L 7.8 L 9.1 L (13.5-17.5) GM/DL Hct 23.8 L 25.0 L 29.4 L (41-53) % 03/21/18 Range/Units 10:00 Hgb 9.7 L (13.5-17.5) GM/DL Hct 30.1 L (41-53) % Orthopedic Assessment and Plan (1) Hip dislocation, right Status: Acute Qualifiers: Encounter type: initial encounter Qualified Code(s): S73.004A - Unspecified dislocation of right hip, initial encounter Problem Details: Recurrent, closed reduction in OR 02/04/18, 02/06/18, 02/12/18--> VAIBHAV 02/18/18 Assessment and Plan: Mr Foley was taken to the OR on 02/04/18, 02/06/18 & 02/12/18 for closed reduction of the right hip under anesthesia. 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 Continue hip precautions. Await placement. 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 Gaming Guardianship/conservator still pending, see CM notes for details. Wound consult- managing pressure ulcers on bilateral heels. Dr. Tejada managing depression. Will change miralax to scheduled daily for bowel motivation, Dulcolax prn. Current anti-coagulation protocol- Plavix 75mg daily. ASA 81mg. SCD's for added protection - Additional Diagnoses Atrial Fibrillation: rate controlled Diabetes: resume oral medications, other (Has been under good control.) CAD: no active chest pain Anemia: no intervention required Hospital Course Summary Disclaimer: The visit summary below is not to be considered part of the above Progress Note. 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 Psychiatric evaluation suggested that the patient is not competent to make his own medication decisions. Case management is working on obtaining a guardian for the patient for consent to do a hip revision. Patient remains at high risk for recurrent dislocation, especially if transferred to assisted as [facility] nursing staff is well educated on precautions. Continue with current cares. Continue wedge pillow and straight leg immobilizer to minimize risk. Encourage participation in therapies to work with him on precautions and ambulation. Continue with bowel motivation. Recheck labs in AM to monitor blood counts, electrolytes and renal function. 02/16/18 [place] - Covering for Dr Lewis Clinically doing well. Forgetful about hip precautions. Plavix on hold for upcoming surgical procedure. Will start SCD for DVT prevention. Blood pressure and blood sugars stable - continue with current treatment. Encourage participation in therapies to work with him on precautions and ambulation. Patient remains at high risk for recurrent dislocation, especially if transferred to assisted as [facility] nursing staff is well educated on precautions. Anticipate Dr Lewis's return tomorrow. 02/19/18 [place] - Covering for Dr Lewis Will decrease IVF to 50cc/hr - oral drive with decrease. Encourage nursing to give Dulcolax to help with bowel function. Urine output slow-will place Herman, start bladder retraining, and initiate Flomax. Nursing not able to place Herman as pt very resistant to that intervention. Will hold on Herman, but continue Flomax. Continue with post op pain control and therapy. Blood sugars and pressure stable with current regimen. Lab ordered for tomorrow. 02/20/18 [place] - covering for Dr Lewis Hgb down to 7.0; will type and cross for 1 unit PRBC. With weight trending up give Lasix post-transfusion. DC IVF. Oral intake starting to improve today. Start tracking I/O - if UO does not improve may need to restart IVF. Renal function is stable. Constipation - BM on 02/1802/21/[address] Lewis Hgb 7.4, s/p 1 unit PRBC transfusion yesterday (and 2 units on 02/14). Dressing is reportedly c/d/i without drainage. Check stool for occult blood. Iron level was low at 34 on on 02/11. Platelets also showing downward trend: Hold naproxen & ASA. He is hemodynamically stable. Weight continues to trend up; he is up 6 kg from date of admission. Anemia could be partly dilutional in nature. Unable to calculate I/O d/t urinary incontinence. He is maintaining saturations on room air. CXR yesterday was negative. Electrolytes/renal function stable. 02/22/18 Hgb 7.2, s/p 3 unit PRBC during hospital course and has been treated with IV iron. Oral iron initiated. Hemoccult pending. Anticipate probable need for additional blood tomorrow, type and screen in a.m. Iron level was low at 34 on on 02/11. Hold naproxen & ASA. May be hemolyzing blood previously transfused, bilirubin normal yesterday-Check haptoglobin/LDH with labs tomorrow. Weight down 3 kg from yesterday but remains positive through the hospitalization and hemoglobin down slightly despite negative fluid balance yesterday. Patient describe dysuria yesterday and urinary frequency which he indicated has been present for about 6 months, UA negative. Urine volumes improving since Flomax initiated. Constipation resolved. Limited activity with physical therapy; guardianship pending to permit placement. 02/23/18 Hgb 7.6-slightly improved today, s/p 3 unit PRBC during hospital course and (2 units preceded VAIBHAV) and has been treated with IV iron. Oral iron initiated. Hemoccult pending. Continue iron therapy; no clear evidence of hemolysis thus far. Continue to monitor hemoglobin daily until above 8. Last bowel movement at least 4-5 days ago-MiraLAX/Senokot doses increased; may require milk of magnesia or alternate stimulant. Much more interactive/appropriate responses today. Will discuss with case management tomorrow, may benefit from repeat psychiatric assessment of competency. 02/24/18 Hgb 7.4. Stool for occult blood is pending. B12 also pending. Continue iron. ASA and Naproxen are on hold. Constipation - last BM 02/21 per RN. Will give Dulcolax today if no results. Good oral intake. VSS; hemodynamically stable. 02/25/18 Hgb 7.3. Stool for occult blood is pending (had BM last night but Hemoccult was not sent). B12 low normal at 272 - methylmalonic acid level ordered; initiate oral B-12 supplementation. Haptoglobin pending. Continue iron. ASA and Naproxen are on hold. Continues on Plavix. VSS; hemodynamically stable. Largely asymptomatic in regards to persistent anemia. Weight is up 2 kg over the past 48 hours-Lasix to be given again today. 02/26/18 [place] - Covering for Dr. Lewis Hemoglobin largely stable at 7.5 this am. Pain controlled. Tolerating therapy. Blood pressure and blood sugars stable - continue treatments. Continue with supportive care, support, and therapy. Anticipate Dr Lewis's return tomorrow. 03/01/18 [place] - Covering for Dr. Lewis Medically doing well-BP, sugars, vitals stable. Emotional support for loss of spouse - very difficult transition for him. Continue with supportive care. Plan - 03/02/18: Covering for Dr. Lewis Medically doing well-BP, sugars, vitals stable. Emotional support for loss of spouse - very difficult transition for him. May consider psychiatric consult for acute grief and treatment recommendations. Continue with supportive care. Will recheck labs in AM to monitor blood counts, electrolytes and renal function. Case management assisting with discharge planning. Dr. Lewis to assume care on 03/03/18.
[2018-04-21] MEDS: FERROUS GLUCONATE 324 MG TABLET PO SCH (09:26)
[2018-04-21] MEDS: CLOPIDOGREL 75 MG TABLET PO SCH (09:26)
[2018-04-21] MEDS: CARVEDILOL 6.25 MG TABLET PO SCH ×2 (09:26→17:05)
[2018-04-21] MEDS: METFORMIN 1,000 MG TABLET PO SCH ×2 (09:26→17:05)
[2018-04-21] MEDS: AMLODIPINE 5 MG TABLET PO SCH (09:26)
[2018-04-21] MEDS: ESCITALOPRAM 20 MG TABLET PO SCH (09:26)
[2018-04-21] MEDS: POLYETHYL GLYCOL 3350 17gm PACKET PO SCH (09:27)
[2018-04-21] MEDS: CYANOCOBALAMIN (B-12) 500mcg TABLET PO SCH (09:27)
[2018-04-21] MEDS: QUETIAPINE 50 MG TABLET PO SCH (20:03)
[2018-04-21] MEDS: TAMSULOSIN 0.4 MG CAPSULE PO SCH (20:03)
[2018-04-21] MEDS: RANITIDINE 150 MG TABLET PO SCH (20:03)
[2018-04-21] MEDS: SUCRALFATE 1 GM TABLET PO SCH (20:04)
[2018-04-21] MEDS: MIRTAZAPINE 15 MG TABLET PO SCH (20:59)
[2018-04-22] MEDS: METFORMIN 1,000 MG TABLET PO SCH ×2 (08:25→18:15)
[2018-04-22] MEDS: CARVEDILOL 6.25 MG TABLET PO SCH ×2 (08:25→18:15)
[2018-04-22] MEDS: CYANOCOBALAMIN (B-12) 500mcg TABLET PO SCH (08:25)
[2018-04-22] MEDS: POLYETHYL GLYCOL 3350 17gm PACKET PO SCH (08:26)
[2018-04-22] MEDS: CLOPIDOGREL 75 MG TABLET PO SCH (08:26)
[2018-04-22] MEDS: AMLODIPINE 5 MG TABLET PO SCH (08:26)
[2018-04-22] MEDS: FERROUS GLUCONATE 324 MG TABLET PO SCH (08:26)
[2018-04-22] MEDS: ESCITALOPRAM 20 MG TABLET PO SCH (08:26)
[2018-04-22] MEDS: QUETIAPINE 50 MG TABLET PO SCH (20:02)
[2018-04-22] MEDS: TAMSULOSIN 0.4 MG CAPSULE PO SCH (20:02)
[2018-04-22] MEDS: RANITIDINE 150 MG TABLET PO SCH (20:02)
[2018-04-22] MEDS: MIRTAZAPINE 15 MG TABLET PO SCH (20:02)
[2018-04-22] MEDS: SUCRALFATE 1 GM TABLET PO SCH (20:02)
--- NOTE | 2018-04-23 09:05 | Orthopedic Progress Note ---
Date: Date: 04/23/18 Time: 901 Subjective/Severity of Illness: Mr. Palafox is sitting up on the edge of the bed this morning. Reports BMs have improved with daily Miralax, reports 1 loose stool last night. No other concerns or complaints. Exam - Constitutional Vital Signs: Temperature 97.5 F 04/23/18 07:32 Pulse Rate 61 04/23/18 07:32 Respiratory Rate 10 04/23/18 07:32 Blood Pressure 128/65 04/23/18 07:32 Pulse Oximetry 95 04/23/18 07:32 General: healthy appearing, no acute distress, well developed, well groomed Nutritional Appearance: well nourished Orientation: alert, oriented x3 - RUE Vascular: radial pulse within normal limits - LUE Vascular: radial pulse within normal limits - RLE Postoperative Appearance: extremity compartments are soft and nontender, neurovascullary intact to extremities Neurological: no deficits Vascular: dorsalis pedis pulse within normal limits - LLE Neurological: no deficits Vascular: dorsalis pedis pulse within normal limits - Respiratory Respiratory Exam: CTA bilaterally, non-labored - Cardiac Cardiovascular exam: Regular Rate/Rhythm, pedal pulses intact - Abdominal GI/Abdominal Exam: soft, normoactive BS x4 - Labs Result Diagrams: 03/21/18 10:00 03/21/18 10:00 H & H 02/04/18 02/07/18 02/11/18 Range/Units 11:33 04:16 17:57 Hgb 9.8 L 9.2 L 9.6 L (13.5-17.5) GM/DL Hct 31.2 L 29.4 L 30.6 L (41-53) % 02/14/18 02/14/18 02/14/18 Range/Units 04:09 13:13 17:37 Hgb 8.7 L 9.8 L D 10.6 L (13.5-17.5) GM/DL Hct 27.9 L 31.5 L D (41-53) % 02/14/18 02/16/18 02/18/18 Range/Units 21:43 04:34 03:56 Hgb 10.9 L 10.7 L 10.8 L (13.5-17.5) GM/DL Hct 33.3 L 33.4 L (41-53) % 02/18/18 02/19/18 02/20/18 Range/Units 21:15 04:47 04:18 Hgb 9.3 L D 8.5 L 7.0 L D (13.5-17.5) GM/DL Hct 28.4 L D 26.5 L 21.9 L D (41-53) % 02/20/18 02/21/18 02/22/18 Range/Units 12:49 04:31 04:09 Hgb 7.9 L D 7.4 L 7.2 L (13.5-17.5) GM/DL Hct 23.2 L 22.7 L (41-53) % 02/23/18 02/24/18 02/25/18 Range/Units 03:57 04:12 04:11 Hgb 7.6 L 7.4 L 7.3 L (13.5-17.5) GM/DL Hct 23.6 L 23.0 L 23.2 L (41-53) % 02/26/18 03/03/18 03/08/18 Range/Units 03:58 04:03 04:49 Hgb 7.5 L 7.8 L 9.1 L (13.5-17.5) GM/DL Hct 23.8 L 25.0 L 29.4 L (41-53) % 03/21/18 Range/Units 10:00 Hgb 9.7 L (13.5-17.5) GM/DL Hct 30.1 L (41-53) % Orthopedic Assessment and Plan (1) Hip dislocation, right Status: Acute Qualifiers: Encounter type: initial encounter Qualified Code(s): S73.004A - Unspecified dislocation of right hip, initial encounter Problem Details: Recurrent, closed reduction in OR 02/04/18, 02/06/18, 02/12/18--> VAIBHAV 02/18/18 Assessment and Plan: Mr Foley was taken to the OR on 02/04/18, 02/06/18 & 02/12/18 for closed reduction of the right hip under anesthesia. 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 Continue hip precautions. Await placement. 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 Gaming Guardianship/conservator still pending, see CM notes for details. Wound consult- managing pressure ulcers on bilateral heels. Dr. Tejada managing depression. Will change miralax to prn for bowel motivation, Dulcolax prn. Current anti-coagulation protocol- Plavix 75mg daily. ASA 81mg. SCD's for added protection - Additional Diagnoses Atrial Fibrillation: rate controlled Diabetes: resume oral medications, other (Has been under good control.) CAD: no active chest pain Anemia: no intervention required Hospital Course Summary Disclaimer: The visit summary below is not to be considered part of the above Progress Note. 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 Psychiatric evaluation suggested that the patient is not competent to make his own medication decisions. Case management is working on obtaining a guardian for the patient for consent to do a hip revision. Patient remains at high risk for recurrent dislocation, especially if transferred to longterm as [facility] nursing staff is well educated on precautions. Continue with current cares. Continue wedge pillow and straight leg immobilizer to minimize risk. Encourage participation in therapies to work with him on precautions and ambulation. Continue with bowel motivation. Recheck labs in AM to monitor blood counts, electrolytes and renal function. 02/16/18 [place] - Covering for Dr Lewis Clinically doing well. Forgetful about hip precautions. Plavix on hold for upcoming surgical procedure. Will start SCD for DVT prevention. Blood pressure and blood sugars stable - continue with current treatment. Encourage participation in therapies to work with him on precautions and ambulation. Patient remains at high risk for recurrent dislocation, especially if transferred to longterm as [facility] nursing staff is well educated on precautions. Anticipate Dr Lewis's return tomorrow. 02/19/18 [place] - Covering for Dr Lewis Will decrease IVF to 50cc/hr - oral drive with decrease. Encourage nursing to give Dulcolax to help with bowel function. Urine output slow-will place Herman, start bladder retraining, and initiate Flomax. Nursing not able to place Herman as pt very resistant to that intervention. Will hold on Herman, but continue Flomax. Continue with post op pain control and therapy. Blood sugars and pressure stable with current regimen. Lab ordered for tomorrow. 02/20/18 [place] - covering for Dr Lewis Hgb down to 7.0; will type and cross for 1 unit PRBC. With weight trending up give Lasix post-transfusion. DC IVF. Oral intake starting to improve today. Start tracking I/O - if UO does not improve may need to restart IVF. Renal function is stable. Constipation - BM on 02/1802/21/[address] Lewis Hgb 7.4, s/p 1 unit PRBC transfusion yesterday (and 2 units on 02/14). Dressing is reportedly c/d/i without drainage. Check stool for occult blood. Iron level was low at 34 on on 02/11. Platelets also showing downward trend: Hold naproxen & ASA. He is hemodynamically stable. Weight continues to trend up; he is up 6 kg from date of admission. Anemia could be partly dilutional in nature. Unable to calculate I/O d/t urinary incontinence. He is maintaining saturations on room air. CXR yesterday was negative. Electrolytes/renal function stable. 02/22/18 Hgb 7.2, s/p 3 unit PRBC during hospital course and has been treated with IV iron. Oral iron initiated. Hemoccult pending. Anticipate probable need for additional blood tomorrow, type and screen in a.m. Iron level was low at 34 on on 02/11. Hold naproxen & ASA. May be hemolyzing blood previously transfused, bilirubin normal yesterday-Check haptoglobin/LDH with labs tomorrow. Weight down 3 kg from yesterday but remains positive through the hospitalization and hemoglobin down slightly despite negative fluid balance yesterday. Patient describe dysuria yesterday and urinary frequency which he indicated has been present for about 6 months, UA negative. Urine volumes improving since Flomax initiated. Constipation resolved. Limited activity with physical therapy; guardianship pending to permit placement. 02/23/18 Hgb 7.6-slightly improved today, s/p 3 unit PRBC during hospital course and (2 units preceded VAIBHAV) and has been treated with IV iron. Oral iron initiated. Hemoccult pending. Continue iron therapy; no clear evidence of hemolysis thus far. Continue to monitor hemoglobin daily until above 8. Last bowel movement at least 4-5 days ago-MiraLAX/Senokot doses increased; may require milk of magnesia or alternate stimulant. Much more interactive/appropriate responses today. Will discuss with case management tomorrow, may benefit from repeat psychiatric assessment of competency. 02/24/18 Hgb 7.4. Stool for occult blood is pending. B12 also pending. Continue iron. ASA and Naproxen are on hold. Constipation - last BM 02/21 per RN. Will give Dulcolax today if no results. Good oral intake. VSS; hemodynamically stable. 02/25/18 Hgb 7.3. Stool for occult blood is pending (had BM last night but Hemoccult was not sent). B12 low normal at 272 - methylmalonic acid level ordered; initiate oral B-12 supplementation. Haptoglobin pending. Continue iron. ASA and Naproxen are on hold. Continues on Plavix. VSS; hemodynamically stable. Largely asymptomatic in regards to persistent anemia. Weight is up 2 kg over the past 48 hours-Lasix to be given again today. 02/26/18 [place] - Covering for Dr. Lewis Hemoglobin largely stable at 7.5 this am. Pain controlled. Tolerating therapy. Blood pressure and blood sugars stable - continue treatments. Continue with supportive care, support, and therapy. Anticipate Dr Lewis's return tomorrow. 03/01/18 [place] - Covering for Dr. Lewis Medically doing well-BP, sugars, vitals stable. Emotional support for loss of spouse - very difficult transition for him. Continue with supportive care. Plan - 03/02/18: Covering for Dr. Lewis Medically doing well-BP, sugars, vitals stable. Emotional support for loss of spouse - very difficult transition for him. May consider psychiatric consult for acute grief and treatment recommendations. Continue with supportive care. Will recheck labs in AM to monitor blood counts, electrolytes and renal function. Case management assisting with discharge planning. Dr. Lewis to assume care on 03/03/18.
[2018-04-23] MEDS: CLOPIDOGREL 75 MG TABLET PO SCH (09:14)
[2018-04-23] MEDS: CYANOCOBALAMIN (B-12) 500mcg TABLET PO SCH (09:14)
[2018-04-23] MEDS: METFORMIN 1,000 MG TABLET PO SCH ×2 (09:14→17:05)
[2018-04-23] MEDS: AMLODIPINE 5 MG TABLET PO SCH (09:15)
[2018-04-23] MEDS: ESCITALOPRAM 20 MG TABLET PO SCH (09:15)
[2018-04-23] MEDS: POLYETHYL GLYCOL 3350 17gm PACKET PO SCH (09:15)
[2018-04-23] MEDS: FERROUS GLUCONATE 324 MG TABLET PO SCH (09:15)
[2018-04-23] MEDS: CARVEDILOL 6.25 MG TABLET PO SCH ×2 (09:15→17:05)
--- NOTE | 2018-04-23 18:15 | Neuropsych Progress Note ---
[facility] Subjective Date: 04/23/18 - Sujective/Severity of Illness Medications: Acetaminophen (Tylenol) 650 mg PO QID PRN PRN Reason: PAIN/FEVER Amlodipine Besylate (Norvasc) 5 mg PO DAILY [facility] Last Admin: 04/23/18 09:15 Dose: 5 mg Aspirin (Ecotrin) 81 mg PO DAILY [facility] Last Admin: 02/21/18 08:33 Dose: 81 mg Bisacodyl (Dulcolax) 10 mg RECTALLY DAILY PRN PRN Reason: Constipation Last Admin: 02/24/18 17:00 Dose: 10 mg Carvedilol (Coreg) 6.25 mg PO BIDWM [facility] Last Admin: 04/23/18 17:05 Dose: 6.25 mg Clopidogrel Bisulfate (Plavix) 75 mg PO DAILY [facility] Last Admin: 04/23/18 09:14 Dose: 75 mg Cyanocobalamin (Vit. B-12) 1,000 mcg PO DAILY [facility] Last Admin: 04/23/18 09:14 Dose: 1,000 mcg Diphenhydramine HCl (Benadryl) 25 mg PO Q6H PRN PRN Reason: Itching Diphenhydramine HCl (Benadryl) 25 mg IVP Q6HR PRN PRN Reason: Itching Escitalopram Oxalate (Lexapro) 20 mg PO DAILY [facility] Last Admin: 04/23/18 09:15 Dose: 20 mg Ferrous Gluconate (Fergon) 324 mg PO WB [facility] Last Admin: 04/23/18 09:15 Dose: 324 mg Lorazepam (Ativan) 1 mg PO HS PRN PRN Reason: See comments below Last Admin: 04/21/18 18:06 Dose: 1 mg Magnesium Hydroxide (Mom) 30 ml PO DAILY PRN PRN Reason: Constipation Metformin HCl (Glucophage) 1,000 mg PO BIDWM [facility] Last Admin: 04/23/18 17:05 Dose: 1,000 mg Mirtazapine (Remeron) 15 mg PO HS [facility] Last Admin: 04/22/18 20:02 Dose: 15 mg Naproxen (Aleve (Naproxen) 220 Mg) 220 mg PO HS [facility] Last Admin: 02/20/18 20:05 Dose: 220 mg Ondansetron HCl (Zofran) 4 mg IVP Q4H PRN PRN Reason: Nausea &/or vomiting Oxybutynin Chloride (Ditropan Xl) 10 mg PO DAILY [facility] Last Admin: 04/23/18 09:14 Dose: 10 mg Polyethylene Glycol (Miralax) 17 gm PO DAILY [facility] Last Admin: 04/23/18 09:15 Dose: Not Given Quetiapine Fumarate (Seroquel) 50 mg PO [facility] Last Admin: 04/22/18 20:02 Dose: 50 mg Quetiapine Fumarate (Seroquel) 50 mg PO Q6H PRN PRN Reason: Agitation Ranitidine HCl (Zantac) 300 mg PO [facility] Last Admin: 04/22/18 20:02 Dose: 300 mg Senna/Docusate Sodium (Senna Plus Tablet) 2 tab PO BID PRN PRN Reason: Constipation /Stool softening Last Admin: 04/01/18 21:20 Dose: 2 tab Sodium Chloride (Normal Saline) 500 ml IV PRN PRN Last Admin: 02/20/18 08:48 Dose: 500 ml Sodium Chloride (Iv Flush) 10 ml IV PRN PRN PRN Reason: Flushing Last Admin: 03/07/18 20:13 Dose: 10 ml Sucralfate (Carafate) 1 gm PO [facility] Last Admin: 04/22/18 20:02 Dose: 1 gm Tamsulosin HCl (Flomax) 0.4 mg PO [facility] Last Admin: 04/22/18 20:02 Dose: 0.4 mg Tramadol HCl (Ultram) 50 - 100 mg PO Q6H PRN PRN Reason: Pain Last Admin: 03/03/18 17:00 Dose: 50 mg Subjective: Patient seen at the request of nursing staff. Staff reports pt has been more depressed and has been making comments that he felt he was 'going to have a nervous breakdown". On face to face the pt is pleasant and cooperative. He states he does feel more depressed and anxious. He states he wants to get out of the hospital and wants to return home. he states he has been dealing with numerous stressors including his wifes and being in the hospital for such a long time. he denies any S/I. he has poor insight and believes he is returning home at discharge and is not sure why that cant happen Start Time: 18:00 Stop Time: 18:15 Mental Status Exam Vitals: Last Vital Signs Temp 97.5 F 07/25/18 07:32 Pulse 61 04/23/18 07:32 Resp 10 04/23/18 07:32 BP 128/65 04/23/18 07:32 Pulse Ox 95 04/23/18 07:32 Height: 1.88 m Weight: 16.6 kg - Mental Status Exam Muscle Strength/Tone: Normal Dressing: Casual Grooming: Fair Attitude: Cooperative Motor Activity: Retardation Eye Contact: Good Speech: Normal Volume: Normal Rhythm: Appropriate Rhythm Orientation: Oriented X4 Mood: Other ("sad") Rate of Thoughts: Appropriate Rate Thought Organization: Organized, [employer] Associations: Intact Abstract Reasoning: Poor abstract reasoning Computation: Appropriate for Education Level Thought Content: Ruminations Perception/Psychotic: Perception Normal Language: Other (Some decrease from baseline, not completely impaired) Fund of Knowledge: Other (decreased from premorbid baseline) Memory: Poor-recent Suicidal Ideation: Denies Homicidal Ideation: Denies Insight: Limited Judgement: Limited Impulse Control: Fair - Laboratory Result Diagrams: 03/21/18 10:00 03/21/18 10:00 Assessment and Plan (1) 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 Psychiatric evaluation suggested that the patient is not competent to make his own medication decisions. Case management is working on obtaining a guardian for the patient for consent to do a hip revision. Patient remains at high risk for recurrent dislocation, especially if transferred to detention as [facility] nursing staff is well educated on precautions. Continue with current cares. Continue wedge pillow and straight leg immobilizer to minimize risk. Encourage participation in therapies to work with him on precautions and ambulation. Continue with bowel motivation. Recheck labs in AM to monitor blood counts, electrolytes and renal function. 02/16/18 [place] - Covering for Dr Lewis Clinically doing well. Forgetful about hip precautions. Plavix on hold for upcoming surgical procedure. Will start SCD for DVT prevention. Blood pressure and blood sugars stable - continue with current treatment. Encourage participation in therapies to work with him on precautions and ambulation. Patient remains at high risk for recurrent dislocation, especially if transferred to detention as [facility] nursing staff is well educated on precautions. Anticipate Dr Lewis's return tomorrow. 02/19/18 [place] - Covering for Dr Lewis Will decrease IVF to 50cc/hr - oral drive with decrease. Encourage nursing to give Dulcolax to help with bowel function. Urine output slow-will place Herman, start bladder retraining, and initiate Flomax. Nursing not able to place Herman as pt very resistant to that intervention. Will hold on Herman, but continue Flomax. Continue with post op pain control and therapy. Blood sugars and pressure stable with current regimen. Lab ordered for tomorrow. 02/20/18 [place] - covering for Dr Lewis Hgb down to 7.0; will type and cross for 1 unit PRBC. With weight trending up give Lasix post-transfusion. DC IVF. Oral intake starting to improve today. Start tracking I/O - if UO does not improve may need to restart IVF. Renal function is stable. Constipation - BM on 02/1802/21/[address] Lewis Hgb 7.4, s/p 1 unit PRBC transfusion yesterday (and 2 units on 02/14). Dressing is reportedly c/d/i without drainage. Check stool for occult blood. Iron level was low at 34 on on 02/11. Platelets also showing downward trend: Hold naproxen & ASA. He is hemodynamically stable. Weight continues to trend up; he is up 6 kg from date of admission. Anemia could be partly dilutional in nature. Unable to calculate I/O d/t urinary incontinence. He is maintaining saturations on room air. CXR yesterday was negative. Electrolytes/renal function stable. 02/22/18 Hgb 7.2, s/p 3 unit PRBC during hospital course and has been treated with IV iron. Oral iron initiated. Hemoccult pending. Anticipate probable need for additional blood tomorrow, type and screen in a.m. Iron level was low at 34 on on 02/11. Hold naproxen & ASA. May be hemolyzing blood previously transfused, bilirubin normal yesterday-Check haptoglobin/LDH with labs tomorrow. Weight down 3 kg from yesterday but remains positive through the hospitalization and hemoglobin down slightly despite negative fluid balance yesterday. Patient describe dysuria yesterday and urinary frequency which he indicated has been present for about 6 months, UA negative. Urine volumes improving since Flomax initiated. Constipation resolved. Limited activity with physical therapy; guardianship pending to permit placement. 02/23/18 Hgb 7.6-slightly improved today, s/p 3 unit PRBC during hospital course and (2 units preceded VAIBHAV) and has been treated with IV iron. Oral iron initiated. Hemoccult pending. Continue iron therapy; no clear evidence of hemolysis thus far. Continue to monitor hemoglobin daily until above 8. Last bowel movement at least 4-5 days ago-MiraLAX/Senokot doses increased; may require milk of magnesia or alternate stimulant. Much more interactive/appropriate responses today. Will discuss with case management tomorrow, may benefit from repeat psychiatric assessment of competency. 02/24/18 Hgb 7.4. Stool for occult blood is pending. B12 also pending. Continue iron. ASA and Naproxen are on hold. Constipation - last BM 02/21 per RN. Will give Dulcolax today if no results. Good oral intake. VSS; hemodynamically stable. 02/25/18 Hgb 7.3. Stool for occult blood is pending (had BM last night but Hemoccult was not sent). B12 low normal at 272 - methylmalonic acid level ordered; initiate oral B-12 supplementation. Haptoglobin pending. Continue iron. ASA and Naproxen are on hold. Continues on Plavix. VSS; hemodynamically stable. Largely asymptomatic in regards to persistent anemia. Weight is up 2 kg over the past 48 hours-Lasix to be given again today. 02/26/18 [place] - Covering for Dr. Lewis Hemoglobin largely stable at 7.5 this am. Pain controlled. Tolerating therapy. Blood pressure and blood sugars stable - continue treatments. Continue with supportive care, support, and therapy. Anticipate Dr Lewis's return tomorrow. 03/01/18 [place] - Covering for Dr. Lewis Medically doing well-BP, sugars, vitals stable. Emotional support for loss of spouse - very difficult transition for him. Continue with supportive care. Plan - 03/02/18: Covering for Dr. Lewis Medically doing well-BP, sugars, vitals stable. Emotional support for loss of spouse - very difficult transition for him. May consider psychiatric consult for acute grief and treatment recommendations. Continue with supportive care. Will recheck labs in AM to monitor blood counts, electrolytes and renal function. Case management assisting with discharge planning. Dr. Lewis to assume care on 03/03/18. 04/23/18 Psych note- Would recommend increasing Remeron to 30mg at HS. Will place order
[2018-04-23] MEDS: ACETAMINOPHEN 325 MG TABLET PO PRN (19:39)
[2018-04-23] MEDS: MIRTAZAPINE 30 MG TABLET PO SCH (20:09)
[2018-04-23] MEDS: SUCRALFATE 1 GM TABLET PO SCH (20:09)
[2018-04-23] MEDS: QUETIAPINE 50 MG TABLET PO SCH (20:09)
[2018-04-23] MEDS: RANITIDINE 150 MG TABLET PO SCH (20:09)
[2018-04-23] MEDS: TAMSULOSIN 0.4 MG CAPSULE PO SCH (20:09)
--- NOTE | 2018-04-24 08:33 | Orthopedic Progress Note ---
Date: Date: 04/24/18 Time: 829 Subjective/Severity of Illness: Jonathan is feeling like he is going to have a nervous breakdown. He was seen last evening by Psych and they are going to increase his Remeron. Denies hip pain. No other concerns except for how he feels emotionally. Orthopedic Exam Vital signs: Temperature 95.9 F L 02/05/18 15:57 Pulse Rate 64 02/05/18 15:57 Respiratory Rate 18 02/05/18 15:57 Blood Pressure 149/69 H 02/05/18 15:57 Pulse Oximetry 97 02/05/18 15:57 Vital Signs Temp Pulse Resp BP Pulse Ox 02/16/18 07:34 97.2 F 61 16 165/73 H 96 02/16/18 04:00 97.4 F 59 L 16 164/72 H 92 02/16/18 00:00 97.2 F 65 16 140/71 H 94 02/15/18 20:00 96.7 F L 66 20 106/56 93 02/15/18 16:36 96.6 F L 65 16 144/67 H 95 02/15/18 12:00 96.5 F L 61 16 159/71 H 94 Intake and Output 02/15/18 02/16/18 02/16/18 22:59 06:59 14:59 Intake Total 240 / 240 Output Total 200 / 200 350 / 350 Balance -200 / -200 -350 / -350 240 / 240 Intake: Oral 240 / 240 Output: Urine 200 / 200 350 / 350 Other: Urine Appearance Clear Clear Urine Color Yellow Yellow Stool Color Brown Stool Consistency Soft Size of Bowel Movement Smear # Voids 1 Weight 229 lb 11.547 oz Patient Weight 02/17/18 06:59 Weight 229 lb 11.547 oz - Constitutional General Appearance: Present: well developed, well nourished - Respiratory Exam Present: non-labored - Cardiovascular Exam Present: pedal pulses intact - Extremities Exam Present: pulses intact - Dressing Dressing: other (No dressing. Wound is healed.) - Hip Exam right Hip Exam: Present: alignment normal - Integumentary Exam Present: pink, warm, dry - Neurological Exam Present: no deficits - Psychiatric Exam Present: alert, other (Jonathan appears somewhat withdrawn and depressed this AM. Communicates well. Knows me.) - Labs Result Diagrams: 03/21/18 10:00 06/22/18 10:00 H & H 02/04/18 02/07/18 02/11/18 Range/Units 11:33 04:16 17:57 Hgb 9.8 L 9.2 L 9.6 L (13.5-17.5) GM/DL Hct 31.2 L 29.4 L 30.6 L (41-53) % 02/14/18 02/14/18 02/14/18 Range/Units 04:09 13:13 17:37 Hgb 8.7 L 9.8 L D 10.6 L (13.5-17.5) GM/DL Hct 27.9 L 31.5 L D (41-53) % 02/14/18 02/16/18 02/18/18 Range/Units 21:43 04:34 03:56 Hgb 10.9 L 10.7 L 10.8 L (13.5-17.5) GM/DL Hct 33.3 L 33.4 L (41-53) % 02/18/18 02/19/18 02/20/18 Range/Units 21:15 04:47 04:18 Hgb 9.3 L D 8.5 L 7.0 L D (13.5-17.5) GM/DL Hct 28.4 L D 26.5 L 21.9 L D (41-53) % 02/20/18 02/21/18 02/22/18 Range/Units 12:49 04:31 04:09 Hgb 7.9 L D 7.4 L 7.2 L (13.5-17.5) GM/DL Hct 23.2 L 22.7 L (41-53) % 02/23/18 02/24/18 02/25/18 Range/Units 03:57 04:12 04:11 Hgb 7.6 L 7.4 L 7.3 L (13.5-17.5) GM/DL Hct 23.6 L 23.0 L 23.2 L (41-53) % 02/26/18 03/03/18 03/08/18 Range/Units 03:58 04:03 04:49 Hgb 7.5 L 7.8 L 9.1 L (13.5-17.5) GM/DL Hct 23.8 L 25.0 L 29.4 L (41-53) % 03/21/18 Range/Units 10:00 Hgb 9.7 L (13.5-17.5) GM/DL Hct 30.1 L (41-53) % Orthopedic Assessment and Plan (1) Hip dislocation, right Status: Acute Qualifiers: Encounter type: initial encounter Qualified Code(s): S73.004A - Unspecified dislocation of right hip, initial encounter Problem Details: Recurrent, closed reduction in OR 02/04/18, 02/06/18, 02/12/18--> VAIBHAV 02/18/18 Assessment and Plan: Mr Foley was taken to the OR on 02/04/18, 02/06/18 & 02/12/18 for closed reduction of the right hip under anesthesia. 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 Continue hip precautions. Await placement. Remeron increased by Psych. 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 Gaming Guardianship/conservator still pending, see CM notes for details. Wound consult- managing pressure ulcers on bilateral heels. Dr. Tejada managing depression. Will change miralax to prn for bowel motivation, Dulcolax prn. Current anti-coagulation protocol- Plavix 75mg daily. ASA 81mg. SCD's for added protection - Additional Diagnoses Atrial Fibrillation: rate controlled Diabetes: resume oral medications, other (Has been under good control.) CAD: no active chest pain Anemia: no intervention required Hospital Course Summary Disclaimer: The visit summary below is not to be considered part of the above Progress Note. 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 Psychiatric evaluation suggested that the patient is not competent to make his own medication decisions. Case management is working on obtaining a guardian for the patient for consent to do a hip revision. Patient remains at high risk for recurrent dislocation, especially if transferred to residential as [facility] [place] is well educated on precautions. Continue with current cares. Continue wedge pillow and straight leg immobilizer to minimize risk. Encourage participation in therapies to work with him on precautions and ambulation. Continue with bowel motivation. Recheck labs in AM to monitor blood counts, electrolytes and renal function. 02/16/18 [place] - Covering for Dr Lewis Clinically doing well. Forgetful about hip precautions. Plavix on hold for upcoming surgical procedure. Will start SCD for DVT prevention. Blood pressure and blood sugars stable - continue with current treatment. Encourage participation in therapies to work with him on precautions and ambulation. Patient remains at high risk for recurrent dislocation, especially if transferred to residential as [facility] nursing staff is well educated on precautions. Anticipate Dr Lewis's return tomorrow. 02/19/18 [place] - Covering for Dr Lewis Will decrease IVF to 50cc/hr - oral drive with decrease. Encourage nursing to give Dulcolax to help with bowel function. Urine output slow-will place Herman, start bladder retraining, and initiate Flomax. Nursing not able to place Herman as pt very resistant to that intervention. Will hold on Herman, but continue Flomax. Continue with post op pain control and therapy. Blood sugars and pressure stable with current regimen. Lab ordered for tomorrow. 02/20/18 [place] - covering for Dr Lewis Hgb down to 7.0; will type and cross for 1 unit PRBC. With weight trending up give Lasix post-transfusion. DC IVF. Oral intake starting to improve today. Start tracking I/O - if UO does not improve may need to restart IVF. Renal function is stable. Constipation - BM on 02/1802/21/[address] Lewis Hgb 7.4, s/p 1 unit PRBC transfusion yesterday (and 2 units on 02/14). Dressing is reportedly c/d/i without drainage. Check stool for occult blood. Iron level was low at 34 on on 02/11. Platelets also showing downward trend: Hold naproxen & ASA. He is hemodynamically stable. Weight continues to trend up; he is up 6 kg from date of admission. Anemia could be partly dilutional in nature. Unable to calculate I/O d/t urinary incontinence. He is maintaining saturations on room air. CXR yesterday was negative. Electrolytes/renal function stable. 02/22/18 Hgb 7.2, s/p 3 unit PRBC during hospital course and has been treated with IV iron. Oral iron initiated. Hemoccult pending. Anticipate probable need for additional blood tomorrow, type and screen in a.m. Iron level was low at 34 on on 02/11. Hold naproxen & ASA. May be hemolyzing blood previously transfused, bilirubin normal yesterday-Check haptoglobin/LDH with labs tomorrow. Weight down 3 kg from yesterday but remains positive through the hospitalization and hemoglobin down slightly despite negative fluid balance yesterday. Patient describe dysuria yesterday and urinary frequency which he indicated has been present for about 6 months, UA negative. Urine volumes improving since Flomax initiated. Constipation resolved. Limited activity with physical therapy; guardianship pending to permit placement. 02/23/18 Hgb 7.6-slightly improved today, s/p 3 unit PRBC during hospital course and (2 units preceded VAIBHAV) and has been treated with IV iron. Oral iron initiated. Hemoccult pending. Continue iron therapy; no clear evidence of hemolysis thus far. Continue to monitor hemoglobin daily until above 8. Last bowel movement at least 4-5 days ago-MiraLAX/Senokot doses increased; may require milk of magnesia or alternate stimulant. Much more interactive/appropriate responses today. Will discuss with case management tomorrow, may benefit from repeat psychiatric assessment of competency. 02/24/18 Hgb 7.4. Stool for occult blood is pending. B12 also pending. Continue iron. ASA and Naproxen are on hold. Constipation - last BM 02/21 per RN. Will give Dulcolax today if no results. Good oral intake. VSS; hemodynamically stable. 02/25/18 Hgb 7.3. Stool for occult blood is pending (had BM last night but Hemoccult was not sent). B12 low normal at 272 - methylmalonic acid level ordered; initiate oral B-12 supplementation. Haptoglobin pending. Continue iron. ASA and Naproxen are on hold. Continues on Plavix. VSS; hemodynamically stable. Largely asymptomatic in regards to persistent anemia. Weight is up 2 kg over the past 48 hours-Lasix to be given again today. 02/26/18 [place] - Covering for Dr. Lewis Hemoglobin largely stable at 7.5 this am. Pain controlled. Tolerating therapy. Blood pressure and blood sugars stable - continue treatments. Continue with supportive care, support, and therapy. Anticipate Dr Lewis's return tomorrow. 03/01/18 [place] - Covering for Dr. Lewis Medically doing well-BP, sugars, vitals stable. Emotional support for loss of spouse - very difficult transition for him. Continue with supportive care. Plan - 03/02/18: Covering for Dr. Lewis Medically doing well-BP, sugars, vitals stable. Emotional support for loss of spouse - very difficult transition for him. May consider psychiatric consult for acute grief and treatment recommendations. Continue with supportive care. Will recheck labs in AM to monitor blood counts, electrolytes and renal function. Case management assisting with discharge planning. Dr. Lewis to assume care on 03/03/18. 04/23/18 Psych note- Would recommend increasing Remeron to 30mg at HS. Will place order
[2018-04-24] MEDS: ESCITALOPRAM 20 MG TABLET PO SCH (09:30)
[2018-04-24] MEDS: FERROUS GLUCONATE 324 MG TABLET PO SCH (09:31)
[2018-04-24] MEDS: AMLODIPINE 5 MG TABLET PO SCH (09:31)
[2018-04-24] MEDS: CLOPIDOGREL 75 MG TABLET PO SCH (09:31)
[2018-04-24] MEDS: CARVEDILOL 6.25 MG TABLET PO SCH ×2 (09:31→16:55)
[2018-04-24] MEDS: METFORMIN 1,000 MG TABLET PO SCH ×2 (09:31→16:55)
[2018-04-24] MEDS: POLYETHYL GLYCOL 3350 17gm PACKET PO SCH (09:32)
[2018-04-24] MEDS: CYANOCOBALAMIN (B-12) 500mcg TABLET PO SCH (09:42)
[2018-04-24] MEDS: RANITIDINE 150 MG TABLET PO SCH (20:49)
[2018-04-24] MEDS: TAMSULOSIN 0.4 MG CAPSULE PO SCH (20:49)
[2018-04-24] MEDS: SUCRALFATE 1 GM TABLET PO SCH (20:50)
[2018-04-24] MEDS: QUETIAPINE 50 MG TABLET PO SCH (20:50)
[2018-04-24] MEDS: MIRTAZAPINE 30 MG TABLET PO SCH (20:50)
[2018-04-25] MEDS: CYANOCOBALAMIN (B-12) 500mcg TABLET PO SCH (08:01)
[2018-04-25] MEDS: AMLODIPINE 5 MG TABLET PO SCH (08:01)
[2018-04-25] MEDS: ESCITALOPRAM 20 MG TABLET PO SCH (08:01)
[2018-04-25] MEDS: FERROUS GLUCONATE 324 MG TABLET PO SCH (08:02)
[2018-04-25] MEDS: CLOPIDOGREL 75 MG TABLET PO SCH (08:02)
[2018-04-25] MEDS: CARVEDILOL 6.25 MG TABLET PO SCH ×2 (08:02→17:00)
[2018-04-25] MEDS: POLYETHYL GLYCOL 3350 17gm PACKET PO SCH (08:02)
[2018-04-25] MEDS: METFORMIN 1,000 MG TABLET PO SCH ×2 (08:02→17:00)
--- NOTE | 2018-04-25 09:51 | Orthopedic Progress Note ---
Date: Date: 04/25/18 Time: 948 Subjective/Severity of Illness: Jonathan has flat affect this morning during rounds. He is eager for placement and discharge from hospital. Denies any other concerns. Denies hip pain. Exam - Constitutional Vital Signs: Temperature 97.6 F 04/25/18 07:42 Pulse Rate 65 04/25/18 07:57 Respiratory Rate 16 04/25/18 07:42 Blood Pressure 149/76 H 04/25/18 07:57 Pulse Oximetry 97 04/25/18 07:42 General: healthy appearing, no acute distress, well developed, well groomed Nutritional Appearance: well nourished Orientation: alert, oriented x3 - RLE Postoperative Appearance: extremity compartments are soft and nontender, neurovascullary intact to extremities - Respiratory Respiratory Exam: non-labored - Cardiac Cardiovascular exam: pedal pulses intact - Abdominal GI/Abdominal Exam: soft - Labs Result Diagrams: 03/21/18 10:00 03/21/18 10:00 H & H 02/04/18 02/07/18 02/11/18 Range/Units 11:33 04:16 17:57 Hgb 9.8 L 9.2 L 9.6 L (13.5-17.5) GM/DL Hct 31.2 L 29.4 L 30.6 L (41-53) % 02/14/18 02/14/18 02/14/18 Range/Units 04:09 13:13 17:37 Hgb 8.7 L 9.8 L D 10.6 L (13.5-17.5) GM/DL Hct 27.9 L 31.5 L D (41-53) % 02/14/18 02/16/18 02/18/18 Range/Units 21:43 04:34 03:56 Hgb 10.9 L 10.7 L 10.8 L (13.5-17.5) GM/DL Hct 33.3 L 33.4 L (41-53) % 02/18/18 02/19/18 02/20/18 Range/Units 21:15 04:47 04:18 Hgb 9.3 L D 8.5 L 7.0 L D (13.5-17.5) GM/DL Hct 28.4 L D 26.5 L 21.9 L D (41-53) % 02/20/18 02/21/18 02/22/18 Range/Units 12:49 04:31 04:09 Hgb 7.9 L D 7.4 L 7.2 L (13.5-17.5) GM/DL Hct 23.2 L 22.7 L (41-53) % 02/23/18 02/24/18 02/25/18 Range/Units 03:57 04:12 04:11 Hgb 7.6 L 7.4 L 7.3 L (13.5-17.5) GM/DL Hct 23.6 L 23.0 L 23.2 L (41-53) % 02/26/18 03/03/18 03/08/18 Range/Units 03:58 04:03 04:49 Hgb 7.5 L 7.8 L 9.1 L (13.5-17.5) GM/DL Hct 23.8 L 25.0 L 29.4 L (41-53) % 03/21/18 Range/Units 10:00 Hgb 9.7 L (13.5-17.5) GM/DL Hct 30.1 L (41-53) % Orthopedic Assessment and Plan (1) Hip dislocation, right Status: Acute Qualifiers: Encounter type: initial encounter Qualified Code(s): S73.004A - Unspecified dislocation of right hip, initial encounter Problem Details: Recurrent, closed reduction in OR 02/04/18, 02/06/18, 02/12/18--> VAIBHAV 02/18/18 Assessment and Plan: Mr Foley was taken to the OR on 02/04/18, 02/06/18 & 02/12/18 for closed reduction of the right hip under anesthesia. 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 Continue hip precautions. Await placement. Remeron increased by Psych. 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 Gaming Guardianship/conservator still pending, see CM notes for details. Wound consult- managing pressure ulcers on bilateral heels. Dr. Tejada managing depression. Will change miralax to prn for bowel motivation, Dulcolax prn. Current anti-coagulation protocol- Plavix 75mg daily. ASA 81mg. SCD's for added protection - Additional Diagnoses Atrial Fibrillation: rate controlled Diabetes: resume oral medications, other (Has been under good control.) CAD: no active chest pain Anemia: no intervention required Hospital Course Summary Disclaimer: The visit summary below is not to be considered part of the above Progress Note. 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 Psychiatric evaluation suggested that the patient is not competent to make his own medication decisions. Case management is working on obtaining a guardian for the patient for consent to do a hip revision. Patient remains at high risk for recurrent dislocation, especially if transferred to long term as [facility] [place] is well educated on precautions. Continue with current cares. Continue wedge pillow and straight leg immobilizer to minimize risk. Encourage participation in therapies to work with him on precautions and ambulation. Continue with bowel motivation. Recheck labs in AM to monitor blood counts, electrolytes and renal function. 02/16/18 [place] - Covering for Dr Lewis Clinically doing well. Forgetful about hip precautions. Plavix on hold for upcoming surgical procedure. Will start SCD for DVT prevention. Blood pressure and blood sugars stable - continue with current treatment. Encourage participation in therapies to work with him on precautions and ambulation. Patient remains at high risk for recurrent dislocation, especially if transferred to long term as [facility] [place] staff is well educated on precautions. Anticipate Dr Lewis's return tomorrow. 02/19/18 [place] - Covering for Dr Lewis Will decrease IVF to 50cc/hr - oral drive with decrease. Encourage nursing to give Dulcolax to help with bowel function. Urine output slow-will place Herman, start bladder retraining, and initiate Flomax. Nursing not able to place Herman as pt very resistant to that intervention. Will hold on Herman, but continue Flomax. Continue with post op pain control and therapy. Blood sugars and pressure stable with current regimen. Lab ordered for tomorrow. 02/20/18 [place] - covering for Dr Lewis Hgb down to 7.0; will type and cross for 1 unit PRBC. With weight trending up give Lasix post-transfusion. DC IVF. Oral intake starting to improve today. Start tracking I/O - if UO does not improve may need to restart IVF. Renal function is stable. Constipation - BM on 02/1802/21/[address] Lewis Hgb 7.4, s/p 1 unit PRBC transfusion yesterday (and 2 units on 02/14). Dressing is reportedly c/d/i without drainage. Check stool for occult blood. Iron level was low at 34 on on 02/11. Platelets also showing downward trend: Hold naproxen & ASA. He is hemodynamically stable. Weight continues to trend up; he is up 6 kg from date of admission. Anemia could be partly dilutional in nature. Unable to calculate I/O d/t urinary incontinence. He is maintaining saturations on room air. CXR yesterday was negative. Electrolytes/renal function stable. 02/22/18 Hgb 7.2, s/p 3 unit PRBC during hospital course and has been treated with IV iron. Oral iron initiated. Hemoccult pending. Anticipate probable need for additional blood tomorrow, type and screen in a.m. Iron level was low at 34 on on 02/11. Hold naproxen & ASA. May be hemolyzing blood previously transfused, bilirubin normal yesterday-Check haptoglobin/LDH with labs tomorrow. Weight down 3 kg from yesterday but remains positive through the hospitalization and hemoglobin down slightly despite negative fluid balance yesterday. Patient describe dysuria yesterday and urinary frequency which he indicated has been present for about 6 months, UA negative. Urine volumes improving since Flomax initiated. Constipation resolved. Limited activity with physical therapy; guardianship pending to permit placement. 02/23/18 Hgb 7.6-slightly improved today, s/p 3 unit PRBC during hospital course and (2 units preceded VAIBHAV) and has been treated with IV iron. Oral iron initiated. Hemoccult pending. Continue iron therapy; no clear evidence of hemolysis thus far. Continue to monitor hemoglobin daily until above 8. Last bowel movement at least 4-5 days ago-MiraLAX/Senokot doses increased; may require milk of magnesia or alternate stimulant. Much more interactive/appropriate responses today. Will discuss with case management tomorrow, may benefit from repeat psychiatric assessment of competency. 02/24/18 Hgb 7.4. Stool for occult blood is pending. B12 also pending. Continue iron. ASA and Naproxen are on hold. Constipation - last BM 02/21 per RN. Will give Dulcolax today if no results. Good oral intake. VSS; hemodynamically stable. 02/25/18 Hgb 7.3. Stool for occult blood is pending (had BM last night but Hemoccult was not sent). B12 low normal at 272 - methylmalonic acid level ordered; initiate oral B-12 supplementation. Haptoglobin pending. Continue iron. ASA and Naproxen are on hold. Continues on Plavix. VSS; hemodynamically stable. Largely asymptomatic in regards to persistent anemia. Weight is up 2 kg over the past 48 hours-Lasix to be given again today. 02/26/18 [place] - Covering for Dr. Lewis Hemoglobin largely stable at 7.5 this am. Pain controlled. Tolerating therapy. Blood pressure and blood sugars stable - continue treatments. Continue with supportive care, support, and therapy. Anticipate Dr Lewis's return tomorrow. 03/01/18 [place] - Covering for Dr. Lewis Medically doing well-BP, sugars, vitals stable. Emotional support for loss of spouse - very difficult transition for him. Continue with supportive care. Plan - 03/02/18: Covering for Dr. Lewis Medically doing well-BP, sugars, vitals stable. Emotional support for loss of spouse - very difficult transition for him. May consider psychiatric consult for acute grief and treatment recommendations. Continue with supportive care. Will recheck labs in AM to monitor blood counts, electrolytes and renal function. Case management assisting with discharge planning. Dr. Lewis to assume care on 03/03/18. 04/23/18 Psych note- Would recommend increasing Remeron to 30mg at HS. Will place order
[2018-04-25] MEDS: RANITIDINE 150 MG TABLET PO SCH (20:15)
[2018-04-25] MEDS: QUETIAPINE 50 MG TABLET PO SCH (20:16)
[2018-04-25] MEDS: SUCRALFATE 1 GM TABLET PO SCH (20:16)
[2018-04-25] MEDS: MIRTAZAPINE 30 MG TABLET PO SCH (20:16)
[2018-04-25] MEDS: TAMSULOSIN 0.4 MG CAPSULE PO SCH (20:16)
[2018-04-26] MEDS: METFORMIN 1,000 MG TABLET PO SCH ×2 (08:07→17:07)
[2018-04-26] MEDS: CARVEDILOL 6.25 MG TABLET PO SCH ×2 (08:07→17:07)
[2018-04-26] MEDS: CYANOCOBALAMIN (B-12) 500mcg TABLET PO SCH (08:07)
[2018-04-26] MEDS: AMLODIPINE 5 MG TABLET PO SCH (08:08)
[2018-04-26] MEDS: FERROUS GLUCONATE 324 MG TABLET PO SCH (08:08)
[2018-04-26] MEDS: ESCITALOPRAM 20 MG TABLET PO SCH (08:08)
[2018-04-26] MEDS: CLOPIDOGREL 75 MG TABLET PO SCH (08:08)
[2018-04-26] MEDS: POLYETHYL GLYCOL 3350 17gm PACKET PO SCH (08:08)
[2018-04-26] MEDS: QUETIAPINE 50 MG TABLET PO SCH (20:35)
[2018-04-26] MEDS: MIRTAZAPINE 30 MG TABLET PO SCH (20:35)
[2018-04-26] MEDS: RANITIDINE 150 MG TABLET PO SCH (20:36)
[2018-04-26] MEDS: TAMSULOSIN 0.4 MG CAPSULE PO SCH (20:36)
[2018-04-26] MEDS: SUCRALFATE 1 GM TABLET PO SCH (20:36)
[2018-04-27] MEDS: CYANOCOBALAMIN (B-12) 500mcg TABLET PO SCH (08:34)
[2018-04-27] MEDS: METFORMIN 1,000 MG TABLET PO SCH ×2 (08:34→16:44)
[2018-04-27] MEDS: CLOPIDOGREL 75 MG TABLET PO SCH (08:34)
[2018-04-27] MEDS: CARVEDILOL 6.25 MG TABLET PO SCH ×2 (08:34→16:44)
[2018-04-27] MEDS: AMLODIPINE 5 MG TABLET PO SCH (08:35)
[2018-04-27] MEDS: FERROUS GLUCONATE 324 MG TABLET PO SCH (08:35)
[2018-04-27] MEDS: ESCITALOPRAM 20 MG TABLET PO SCH (08:35)
[2018-04-27] MEDS: POLYETHYL GLYCOL 3350 17gm PACKET PO SCH (08:35)
[2018-04-27] MEDS: SUCRALFATE 1 GM TABLET PO SCH (20:46)
[2018-04-27] MEDS: QUETIAPINE 50 MG TABLET PO SCH (20:46)
[2018-04-27] MEDS: RANITIDINE 150 MG TABLET PO SCH (20:46)
[2018-04-27] MEDS: TAMSULOSIN 0.4 MG CAPSULE PO SCH (20:46)
[2018-04-27] MEDS: MIRTAZAPINE 30 MG TABLET PO SCH (20:46)
[2018-04-28] MEDS: FERROUS GLUCONATE 324 MG TABLET PO SCH (08:45)
[2018-04-28] MEDS: AMLODIPINE 5 MG TABLET PO SCH (08:45)
[2018-04-28] MEDS: CYANOCOBALAMIN (B-12) 500mcg TABLET PO SCH (08:45)
[2018-04-28] MEDS: CLOPIDOGREL 75 MG TABLET PO SCH (08:46)
[2018-04-28] MEDS: METFORMIN 1,000 MG TABLET PO SCH ×2 (08:46→17:06)
[2018-04-28] MEDS: POLYETHYL GLYCOL 3350 17gm PACKET PO SCH (08:46)
[2018-04-28] MEDS: CARVEDILOL 6.25 MG TABLET PO SCH ×2 (08:46→17:06)
[2018-04-28] MEDS: ESCITALOPRAM 20 MG TABLET PO SCH (08:46)
[2018-04-28] MEDS: QUETIAPINE 50 MG TABLET PO SCH (20:50)
[2018-04-28] MEDS: SUCRALFATE 1 GM TABLET PO SCH (20:50)
[2018-04-28] MEDS: RANITIDINE 150 MG TABLET PO SCH (20:50)
[2018-04-28] MEDS: MIRTAZAPINE 30 MG TABLET PO SCH (20:50)
[2018-04-28] MEDS: TAMSULOSIN 0.4 MG CAPSULE PO SCH (20:50)
[2018-04-29] MEDS: CLOPIDOGREL 75 MG TABLET PO SCH (09:02)
[2018-04-29] MEDS: CYANOCOBALAMIN (B-12) 500mcg TABLET PO SCH (09:02)
[2018-04-29] MEDS: METFORMIN 1,000 MG TABLET PO SCH ×2 (09:03→18:01)
[2018-04-29] MEDS: ESCITALOPRAM 20 MG TABLET PO SCH (09:03)
[2018-04-29] MEDS: CARVEDILOL 6.25 MG TABLET PO SCH ×2 (09:03→18:00)
[2018-04-29] MEDS: FERROUS GLUCONATE 324 MG TABLET PO SCH (09:03)
[2018-04-29] MEDS: AMLODIPINE 5 MG TABLET PO SCH (09:03)
[2018-04-29] MEDS: POLYETHYL GLYCOL 3350 17gm PACKET PO SCH (09:04)
[2018-04-29] MEDS ORDERED: FALL RISK - PHARMACY CONSULT MC ONE (19:52)
[2018-04-29] MEDS: QUETIAPINE 50 MG TABLET PO SCH (20:01)
[2018-04-29] MEDS: TAMSULOSIN 0.4 MG CAPSULE PO SCH (20:01)
[2018-04-29] MEDS: MIRTAZAPINE 30 MG TABLET PO SCH (20:01)
[2018-04-29] MEDS: SUCRALFATE 1 GM TABLET PO SCH (20:01)
[2018-04-29] MEDS: RANITIDINE 150 MG TABLET PO SCH (20:02)
--- NOTE | 2018-04-29 20:13 | Neuropsych Progress Note ---
[facility] Subjective Date: 04/30/18 - Sujective/Severity of Illness Medications: Acetaminophen (Tylenol) 650 mg PO QID PRN PRN Reason: PAIN/FEVER Last Admin: 04/23/18 19:39 Dose: 650 mg Amlodipine Besylate (Norvasc) 5 mg PO DAILY [facility] Last Admin: 04/29/18 09:03 Dose: 5 mg Aspirin (Ecotrin) 81 mg PO DAILY [facility] Last Admin: 02/21/18 08:33 Dose: 81 mg Bisacodyl (Dulcolax) 10 mg RECTALLY DAILY PRN PRN Reason: Constipation Last Admin: 02/24/18 17:00 Dose: 10 mg Carvedilol (Coreg) 6.25 mg PO BIDWM [facility] Last Admin: 04/29/18 18:00 Dose: 6.25 mg Clopidogrel Bisulfate (Plavix) 75 mg PO DAILY [facility] Last Admin: 04/29/18 09:02 Dose: 75 mg Cyanocobalamin (Vit. B-12) 1,000 mcg PO DAILY [facility] Last Admin: 04/29/18 09:02 Dose: 1,000 mcg Diphenhydramine HCl (Benadryl) 25 mg PO Q6H PRN PRN Reason: Itching Diphenhydramine HCl (Benadryl) 25 mg IVP Q6HR PRN PRN Reason: Itching Escitalopram Oxalate (Lexapro) 20 mg PO DAILY [facility] Last Admin: 04/29/18 09:03 Dose: 20 mg Ferrous Gluconate (Fergon) 324 mg PO WB [facility] Last Admin: 04/29/18 09:03 Dose: 324 mg Lorazepam (Ativan) 1 mg PO HS PRN PRN Reason: See comments below Last Admin: 04/21/18 18:06 Dose: 1 mg Magnesium Hydroxide (Mom) 30 ml PO DAILY PRN PRN Reason: Constipation Metformin HCl (Glucophage) 1,000 mg PO BIDWM [facility] Last Admin: 04/29/18 18:01 Dose: 1,000 mg Mirtazapine (Remeron) 30 mg PO HS [facility] Last Admin: 04/29/18 20:01 Dose: 30 mg Naproxen (Aleve (Naproxen) 220 Mg) 220 mg PO HS [facility] Last Admin: 02/20/18 20:05 Dose: 220 mg Ondansetron HCl (Zofran) 4 mg IVP Q4H PRN PRN Reason: Nausea &/or vomiting Oxybutynin Chloride (Ditropan Xl) 10 mg PO DAILY [facility] Last Admin: 04/29/18 09:03 Dose: 10 mg Pharmacy Consult (Pharmacy Consult - Fall Risk) each ONE TIME ONE Stop: 04/29/18 19:53 Polyethylene Glycol (Miralax) 17 gm PO DAILY [facility] Last Admin: 04/29/18 09:04 Dose: Not Given Quetiapine Fumarate (Seroquel) [address] [facility] Last Admin: 04/29/18 20:01 Dose: 50 mg Quetiapine Fumarate (Seroquel) 50 mg PO Q6H PRN PRN Reason: Agitation Ranitidine HCl (Zantac) [address] [facility] Last Admin: 04/29/18 20:02 Dose: 300 mg Senna/Docusate Sodium (Senna Plus Tablet) 2 tab PO BID PRN PRN Reason: Constipation /Stool softening Last Admin: 04/01/18 21:20 Dose: 2 tab Sodium Chloride (Normal Saline) 500 ml IV PRN PRN Last Admin: 02/20/18 08:48 Dose: 500 ml Sodium Chloride (Iv Flush) 10 ml IV PRN PRN PRN Reason: Flushing Last Admin: 03/07/18 20:13 Dose: 10 ml Sucralfate (Carafate) [address] [facility] Last Admin: 04/29/18 20:01 Dose: 1 gm Tamsulosin HCl (Flomax) 0.[address] [facility] Last Admin: 04/29/18 20:01 Dose: 0.4 mg Tramadol HCl (Ultram) 50 - 100 mg PO Q6H PRN PRN Reason: Pain Last Admin: 03/03/18 17:00 Dose: 50 mg Subjective: Patient seen at the request of nursing staff after he has exhibited some hoarding tendencies (with napkins, grabbed a trash bag outside to keep). It is not clear if patient has a hx of this prior to hospitalization. On interview, patient has a brighter affect than I have seen previously and reports that his mood has improved. The main contributor to this is the possibility that he will get out of the hospital soon and move to a LTC facility while guardianship is finalized. He still does not feel that he needs a guardian but he is okay with it. He is much less ruminative and is more future-oriented than I have seen him on past visits. Patient denies any SI, HI or AVH. Patient denies any adverse side effects related to psychotropic medications. Patient denies any change in sleep or appetite. Start Time: 16:00 Stop Time: 16:20 Mental Status Exam Vitals: Last Vital Signs Temp 96.0 F L 04/29/18 09:01 Pulse 74 04/29/18 19:51 Resp 16 04/29/18 19:51 BP 146/65 H 04/29/18 19:51 Pulse Ox 97 04/29/18 19:51 Height: 1.88 m Weight: 105 kg - Mental Status Exam Muscle Strength/Tone: Normal Dressing: Casual Grooming: Fair Attitude: Cooperative Motor Activity: Retardation Eye Contact: Good Speech: Normal Volume: Normal Rhythm: Appropriate Rhythm Sensory: Alert Orientation: Oriented X4 Mood: Euthymic Affect: Relaxed Rate of Thoughts: Appropriate Rate Thought Organization: Organized, [employer]: Intact Abstract Reasoning: Poor abstract reasoning Computation: Appropriate for Education Level Thought Content: Normal Perception/Psychotic: Perception Normal Language: Other (Some decrease from baseline, not completely impaired) Fund of Knowledge: Other (decreased from premorbid baseline) Memory: Poor-recent Suicidal Ideation: Denies Homicidal Ideation: Denies Insight: Limited Judgement: Limited Impulse Control: Fair - Laboratory Result Diagrams: 03/21/18 10:00 03/21/18 10:00 Assessment and Plan (1) Major 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 Patient does not give any indication that he is suicidal or is an imminent risk to himself currently other than needing a guardian ( which is being finalized). Hospital Course Summary Disclaimer: The visit summary below is not to be considered part of the above Progress Note. 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 Psychiatric evaluation suggested that the patient is not competent to make his own medication decisions. Case management is working on obtaining a guardian for the patient for consent to do a hip revision. Patient remains at high risk for recurrent dislocation, especially if transferred to detention as [facility] nursing staff is well educated on precautions. Continue with current cares. Continue wedge pillow and straight leg immobilizer to minimize risk. Encourage participation in therapies to work with him on precautions and ambulation. Continue with bowel motivation. Recheck labs in AM to monitor blood counts, electrolytes and renal function. 02/16/18 [place] - Covering for Dr Lewis Clinically doing well. Forgetful about hip precautions. Plavix on hold for upcoming surgical procedure. Will start SCD for DVT prevention. Blood pressure and blood sugars stable - continue with current treatment. Encourage participation in therapies to work with him on precautions and ambulation. Patient remains at high risk for recurrent dislocation, especially if transferred to detention as [facility] nursing staff is well educated on precautions. Anticipate Dr Lewis's return tomorrow. 02/19/18 [place] - Covering for Dr Lewis Will decrease IVF to 50cc/hr - oral drive with decrease. Encourage nursing to give Dulcolax to help with bowel function. Urine output slow-will place Herman, start bladder retraining, and initiate Flomax. Nursing not able to place Herman as pt very resistant to that intervention. Will hold on Herman, but continue Flomax. Continue with post op pain control and therapy. Blood sugars and pressure stable with current regimen. Lab ordered for tomorrow. 02/20/18 [place] - covering for Dr Lewis Hgb down to 7.0; will type and cross for 1 unit PRBC. With weight trending up give Lasix post-transfusion. DC IVF. Oral intake starting to improve today. Start tracking I/O - if UO does not improve may need to restart IVF. Renal function is stable. Constipation - BM on 02/1802/21/[address] Lewis Hgb 7.4, s/p 1 unit PRBC transfusion yesterday (and 2 units on 02/14). Dressing is reportedly c/d/i without drainage. Check stool for occult blood. Iron level was low at 34 on on 02/11. Platelets also showing downward trend: Hold naproxen & ASA. He is hemodynamically stable. Weight continues to trend up; he is up 6 kg from date of admission. Anemia could be partly dilutional in nature. Unable to calculate I/O d/t urinary incontinence. He is maintaining saturations on room air. CXR yesterday was negative. Electrolytes/renal function stable. 02/22/18 Hgb 7.2, s/p 3 unit PRBC during hospital course and has been treated with IV iron. Oral iron initiated. Hemoccult pending. Anticipate probable need for additional blood tomorrow, type and screen in a.m. Iron level was low at 34 on on 02/11. Hold naproxen & ASA. May be hemolyzing blood previously transfused, bilirubin normal yesterday-Check haptoglobin/LDH with labs tomorrow. Weight down 3 kg from yesterday but remains positive through the hospitalization and hemoglobin down slightly despite negative fluid balance yesterday. Patient describe dysuria yesterday and urinary frequency which he indicated has been present for about 6 months, UA negative. Urine volumes improving since Flomax initiated. Constipation resolved. Limited activity with physical therapy; guardianship pending to permit placement. 02/23/18 Hgb 7.6-slightly improved today, s/p 3 unit PRBC during hospital course and (2 units preceded VAIBHAV) and has been treated with IV iron. Oral iron initiated. Hemoccult pending. Continue iron therapy; no clear evidence of hemolysis thus far. Continue to monitor hemoglobin daily until above 8. Last bowel movement at least 4-5 days ago-MiraLAX/Senokot doses increased; may require milk of magnesia or alternate stimulant. Much more interactive/appropriate responses today. Will discuss with case management tomorrow, may benefit from repeat psychiatric assessment of competency. 02/24/18 Hgb 7.4. Stool for occult blood is pending. B12 also pending. Continue iron. ASA and Naproxen are on hold. Constipation - last BM 02/21 per RN. Will give Dulcolax today if no results. Good oral intake. VSS; hemodynamically stable. 02/25/18 Hgb 7.3. Stool for occult blood is pending (had BM last night but Hemoccult was not sent). B12 low normal at 272 - methylmalonic acid level ordered; initiate oral B-12 supplementation. Haptoglobin pending. Continue iron. ASA and Naproxen are on hold. Continues on Plavix. VSS; hemodynamically stable. Largely asymptomatic in regards to persistent anemia. Weight is up 2 kg over the past 48 hours-Lasix to be given again today. 02/26/18 [place] - Covering for Dr. Lewis Hemoglobin largely stable at 7.5 this am. Pain controlled. Tolerating therapy. Blood pressure and blood sugars stable - continue treatments. Continue with supportive care, support, and therapy. Anticipate Dr Lewis's return tomorrow. 03/01/18 [place] - Covering for Dr. Lewis Medically doing well-BP, sugars, vitals stable. Emotional support for loss of spouse - very difficult transition for him. Continue with supportive care. Plan - 03/02/18: Covering for Dr. Lewis Medically doing well-BP, sugars, vitals stable. Emotional support for loss of spouse - very difficult transition for him. May consider psychiatric consult for acute grief and treatment recommendations. Continue with supportive care. Will recheck labs in AM to monitor blood counts, electrolytes and renal function. Case management assisting with discharge planning. Dr. Lewis to assume care on 03/03/18. 04/23/18 Psych note- Would recommend increasing Remeron to 30mg at HS. Will place order. 04/24/18 Psych: Continue current care. Patient does not give any indication that he is suicidal or is an imminent risk to himself currently other than needing a guardian (which is being finalized).
--- NOTE | 2018-04-30 08:05 | Orthopedic Progress Note ---
Date: Date: 04/30/18 Time: 08 Subjective/Severity of Illness: Jonathan is doing well this AM. His spirits appear a little better this AM. He is talking about getting out of here and going to [facility]. Denies any pain. No new concerns. Orthopedic Exam Vital signs: Temperature 95.9 F L 02/05/18 15:57 Pulse Rate 64 02/05/18 15:57 Respiratory Rate 18 02/05/18 15:57 Blood Pressure 149/69 H 02/05/18 15:57 Pulse Oximetry 97 02/05/18 15:57 Vital Signs Temp Pulse Resp BP Pulse Ox 02/16/18 07:34 97.2 F 61 16 165/73 H 96 02/16/18 04:00 97.4 F 59 L 16 164/72 H 92 02/16/18 00:00 97.2 F 65 16 140/71 H 94 02/15/18 20:00 96.7 F L 66 20 106/56 93 02/15/18 16:36 96.6 F L 65 16 144/67 H 95 02/15/18 12:00 96.5 F L 61 16 159/71 H 94 Intake and Output 02/15/18 02/16/18 02/16/18 22:59 06:59 14:59 Intake Total 240 / 240 Output Total 200 / 200 350 / 350 Balance -200 / -200 -350 / -350 240 / 240 Intake: Oral 240 / 240 Output: Urine 200 / 200 350 / 350 Other: Urine Appearance Clear Clear Urine Color Yellow Yellow Stool Color Brown Stool Consistency Soft Size of Bowel Movement Smear # Voids 1 Weight 229 lb 11.547 oz Patient Weight 02/17/18 06:59 Weight 229 lb 11.547 oz - Constitutional General Appearance: Present: alert, well developed, well nourished - Respiratory Exam Present: non-labored - Cardiovascular Exam Present: pedal pulses intact - Abdominal Exam Present: soft - Dressing Dressing: other (No dressing. Wound is healed.) - Hip Exam right Hip Exam: Present: alignment normal - Integumentary Exam Present: pink, warm, dry - Neurological Exam Present: no deficits - Psychiatric Exam Present: alert, other (spirits appear better today. ) - Labs Result Diagrams: 03/21/18 10:00 03/21/18 10:00 H & H 02/04/18 02/07/18 02/11/18 Range/Units 11:33 04:16 17:57 Hgb 9.8 L 9.2 L 9.6 L (13.5-17.5) GM/DL Hct 31.2 L 29.4 L 30.6 L (41-53) % 02/14/18 02/14/18 02/14/18 Range/Units 04:09 13:13 17:37 Hgb 8.7 L 9.8 L D 10.6 L (13.5-17.5) GM/DL Hct 27.9 L 31.5 L D (41-53) % 02/14/18 02/16/18 02/18/18 Range/Units 21:43 04:34 03:56 Hgb 10.9 L 10.7 L 10.8 L (13.5-17.5) GM/DL Hct 33.3 L 33.4 L (41-53) % 02/18/18 02/19/18 02/20/18 Range/Units 21:15 04:47 04:18 Hgb 9.3 L D 8.5 L 7.0 L D (13.5-17.5) GM/DL Hct 28.4 L D 26.5 L 21.9 L D (41-53) % 02/20/18 02/21/18 02/22/18 Range/Units 12:49 04:31 04:09 Hgb 7.9 L D 7.4 L 7.2 L (13.5-17.5) GM/DL Hct 23.2 L 22.7 L (41-53) % 02/23/18 02/24/18 02/25/18 Range/Units 03:57 04:12 04:11 Hgb 7.6 L 7.4 L 7.3 L (13.5-17.5) GM/DL Hct 23.6 L 23.0 L 23.2 L (41-53) % 02/26/18 03/03/18 03/08/18 Range/Units 03:58 04:03 04:49 Hgb 7.5 L 7.8 L 9.1 L (13.5-17.5) GM/DL Hct 23.8 L 25.0 L 29.4 L (41-53) % 03/21/18 Range/Units 10:00 Hgb 9.7 L (13.5-17.5) GM/DL Hct 30.1 L (41-53) % Orthopedic Assessment and Plan (1) Hip dislocation, right Status: Acute Qualifiers: Encounter type: initial encounter Qualified Code(s): S73.004A - Unspecified dislocation of right hip, initial encounter Problem Details: Recurrent, closed reduction in OR 02/04/18, 02/06/18, 02/12/18--> VAIBHAV 02/18/18 Assessment and Plan: Mr Foley was taken to the OR on 02/04/18, 02/06/18 & 02/12/18 for closed reduction of the right hip under anesthesia. 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 Continue hip precautions. Await placement. 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 Gaming Guardianship/conservator still pending, see CM notes for details. Wound consult- managing pressure ulcers on bilateral heels. Dr. Tejada managing depression. Will change miralax to prn for bowel motivation, Dulcolax prn. Current anti-coagulation protocol- Plavix 75mg daily. ASA 81mg. SCD's for added protection - Additional Diagnoses Atrial Fibrillation: rate controlled Diabetes: resume oral medications CAD: no active chest pain Anemia: no intervention required Hospital Course Summary Disclaimer: The visit summary below is not to be considered part of the above Progress Note. 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 Psychiatric evaluation suggested that the patient is not competent to make his own medication decisions. Case management is working on obtaining a guardian for the patient for consent to do a hip revision. Patient remains at high risk for recurrent dislocation, especially if transferred to detention as [facility] nursing staff is well educated on precautions. Continue with current cares. Continue wedge pillow and straight leg immobilizer to minimize risk. Encourage participation in therapies to work with him on precautions and ambulation. Continue with bowel motivation. Recheck labs in AM to monitor blood counts, electrolytes and renal function. 02/16/18 [place] - Covering for Dr Lewis Clinically doing well. Forgetful about hip precautions. Plavix on hold for upcoming surgical procedure. Will start SCD for DVT prevention. Blood pressure and blood sugars stable - continue with current treatment. Encourage participation in therapies to work with him on precautions and ambulation. Patient remains at high risk for recurrent dislocation, especially if transferred to detention as [facility] nursing staff is well educated on precautions. Anticipate Dr Lewis's return tomorrow. 02/19/18 [place] - Covering for Dr Lewis Will decrease IVF to 50cc/hr - oral drive with decrease. Encourage nursing to give Dulcolax to help with bowel function. Urine output slow-will place Herman, start bladder retraining, and initiate Flomax. Nursing not able to place Herman as pt very resistant to that intervention. Will hold on Herman, but continue Flomax. Continue with post op pain control and therapy. Blood sugars and pressure stable with current regimen. Lab ordered for tomorrow. 02/20/18 [place] - covering for Dr Lewis Hgb down to 7.0; will type and cross for 1 unit PRBC. With weight trending up give Lasix post-transfusion. DC IVF. Oral intake starting to improve today. Start tracking I/O - if UO does not improve may need to restart IVF. Renal function is stable. Constipation - BM on 02/1802/21/[address] Lewis Hgb 7.4, s/p 1 unit PRBC transfusion yesterday (and 2 units on 02/14). Dressing is reportedly c/d/i without drainage. Check stool for occult blood. Iron level was low at 34 on on 02/11. Platelets also showing downward trend: Hold naproxen & ASA. He is hemodynamically stable. Weight continues to trend up; he is up 6 kg from date of admission. Anemia could be partly dilutional in nature. Unable to calculate I/O d/t urinary incontinence. He is maintaining saturations on room air. CXR yesterday was negative. Electrolytes/renal function stable. 02/22/18 Hgb 7.2, s/p 3 unit PRBC during hospital course and has been treated with IV iron. Oral iron initiated. Hemoccult pending. Anticipate probable need for additional blood tomorrow, type and screen in a.m. Iron level was low at 34 on on 02/11. Hold naproxen & ASA. May be hemolyzing blood previously transfused, bilirubin normal yesterday-Check haptoglobin/LDH with labs tomorrow. Weight down 3 kg from yesterday but remains positive through the hospitalization and hemoglobin down slightly despite negative fluid balance yesterday. Patient describe dysuria yesterday and urinary frequency which he indicated has been present for about 6 months, UA negative. Urine volumes improving since Flomax initiated. Constipation resolved. Limited activity with physical therapy; guardianship pending to permit placement. 02/23/18 Hgb 7.6-slightly improved today, s/p 3 unit PRBC during hospital course and (2 units preceded VAIBHAV) and has been treated with IV iron. Oral iron initiated. Hemoccult pending. Continue iron therapy; no clear evidence of hemolysis thus far. Continue to monitor hemoglobin daily until above 8. Last bowel movement at least 4-5 days ago-MiraLAX/Senokot doses increased; may require milk of magnesia or alternate stimulant. Much more interactive/appropriate responses today. Will discuss with case management tomorrow, may benefit from repeat psychiatric assessment of competency. 02/24/18 Hgb 7.4. Stool for occult blood is pending. B12 also pending. Continue iron. ASA and Naproxen are on hold. Constipation - last BM 02/21 per RN. Will give Dulcolax today if no results. Good oral intake. VSS; hemodynamically stable. 02/25/18 Hgb 7.3. Stool for occult blood is pending (had BM last night but Hemoccult was not sent). B12 low normal at 272 - methylmalonic acid level ordered; initiate oral B-12 supplementation. Haptoglobin pending. Continue iron. ASA and Naproxen are on hold. Continues on Plavix. VSS; hemodynamically stable. Largely asymptomatic in regards to persistent anemia. Weight is up 2 kg over the past 48 hours-Lasix to be given again today. 02/26/18 [place] - Covering for Dr. Lewis Hemoglobin largely stable at 7.5 this am. Pain controlled. Tolerating therapy. Blood pressure and blood sugars stable - continue treatments. Continue with supportive care, support, and therapy. Anticipate Dr Lewis's return tomorrow. 03/01/18 [place] - Covering for Dr. Lewis Medically doing well-BP, sugars, vitals stable. Emotional support for loss of spouse - very difficult transition for him. Continue with supportive care. Plan - 03/02/18: Covering for Dr. Lewis Medically doing well-BP, sugars, vitals stable. Emotional support for loss of spouse - very difficult transition for him. May consider psychiatric consult for acute grief and treatment recommendations. Continue with supportive care. Will recheck labs in AM to monitor blood counts, electrolytes and renal function. Case management assisting with discharge planning. Dr. Lewis to assume care on 03/03/18. 04/23/18 Psych note- Would recommend increasing Remeron to 30mg at HS. Will place order
[2018-04-30] MEDS: ESCITALOPRAM 20 MG TABLET PO SCH (09:27)
[2018-04-30] MEDS: CYANOCOBALAMIN (B-12) 500mcg TABLET PO SCH (09:27)
[2018-04-30] MEDS: CLOPIDOGREL 75 MG TABLET PO SCH (09:27)
[2018-04-30] MEDS: METFORMIN 1,000 MG TABLET PO SCH ×2 (09:27→18:08)
[2018-04-30] MEDS: AMLODIPINE 5 MG TABLET PO SCH (09:28)
[2018-04-30] MEDS: CARVEDILOL 6.25 MG TABLET PO SCH ×2 (09:28→18:09)
[2018-04-30] MEDS: FERROUS GLUCONATE 324 MG TABLET PO SCH (09:28)
[2018-04-30] MEDS: POLYETHYL GLYCOL 3350 17gm PACKET PO SCH (09:28)
[2018-04-30] MEDS: TAMSULOSIN 0.4 MG CAPSULE PO SCH (21:20)
[2018-04-30] MEDS: RANITIDINE 150 MG TABLET PO SCH (21:20)
[2018-04-30] MEDS: SUCRALFATE 1 GM TABLET PO SCH (21:21)
[2018-04-30] MEDS: QUETIAPINE 50 MG TABLET PO SCH (21:21)
[2018-04-30] MEDS: MIRTAZAPINE 30 MG TABLET PO SCH (21:21)
[2018-05-01] MEDS: FERROUS GLUCONATE 324 MG TABLET PO SCH (08:36)
[2018-05-01] MEDS: CYANOCOBALAMIN (B-12) 500mcg TABLET PO SCH (08:36)
[2018-05-01] MEDS: POLYETHYL GLYCOL 3350 17gm PACKET PO SCH ×2 (08:36→08:41)
[2018-05-01] MEDS: CARVEDILOL 6.25 MG TABLET PO SCH ×2 (08:36→17:20)
[2018-05-01] MEDS: AMLODIPINE 5 MG TABLET PO SCH (08:36)
[2018-05-01] MEDS: ESCITALOPRAM 20 MG TABLET PO SCH (08:37)
[2018-05-01] MEDS: METFORMIN 1,000 MG TABLET PO SCH ×2 (08:37→17:20)
[2018-05-01] MEDS: CLOPIDOGREL 75 MG TABLET PO SCH (08:37)
[2018-05-01] MEDS: ACETAMINOPHEN 325 MG TABLET PO PRN (19:21)
[2018-05-01] MEDS: RANITIDINE 150 MG TABLET PO SCH (20:25)
[2018-05-01] MEDS: TAMSULOSIN 0.4 MG CAPSULE PO SCH (20:26)
[2018-05-01] MEDS: SUCRALFATE 1 GM TABLET PO SCH (20:26)
[2018-05-01] MEDS: QUETIAPINE 50 MG TABLET PO SCH (20:26)
[2018-05-01] MEDS: MIRTAZAPINE 30 MG TABLET PO SCH (20:26)
[2018-05-02] MEDS: POLYETHYL GLYCOL 3350 17gm PACKET PO SCH ×2 (09:37→09:42)
[2018-05-02] MEDS: CARVEDILOL 6.25 MG TABLET PO SCH ×2 (09:37→17:52)
[2018-05-02] MEDS: CLOPIDOGREL 75 MG TABLET PO SCH (09:38)
[2018-05-02] MEDS: FERROUS GLUCONATE 324 MG TABLET PO SCH (09:38)
[2018-05-02] MEDS: METFORMIN 1,000 MG TABLET PO SCH ×2 (09:38→17:52)
[2018-05-02] MEDS: AMLODIPINE 5 MG TABLET PO SCH (09:38)
[2018-05-02] MEDS: ESCITALOPRAM 20 MG TABLET PO SCH (09:39)
[2018-05-02] MEDS: CYANOCOBALAMIN (B-12) 500mcg TABLET PO SCH (09:39)
[2018-05-02] MEDS: QUETIAPINE 50 MG TABLET PO SCH (20:30)
[2018-05-02] MEDS: RANITIDINE 150 MG TABLET PO SCH (20:30)
[2018-05-02] MEDS: MIRTAZAPINE 30 MG TABLET PO SCH (20:30)
[2018-05-02] MEDS: TAMSULOSIN 0.4 MG CAPSULE PO SCH (20:31)
[2018-05-02] MEDS: SUCRALFATE 1 GM TABLET PO SCH (20:31)
[2018-05-02] MEDS ORDERED: FALL RISK - PHARMACY CONSULT MC ONE (20:41)
[2018-05-03] MEDS: CARVEDILOL 6.25 MG TABLET PO SCH ×2 (09:48→18:05)
[2018-05-03] MEDS: FERROUS GLUCONATE 324 MG TABLET PO SCH (09:48)
[2018-05-03] MEDS: CLOPIDOGREL 75 MG TABLET PO SCH (09:48)
[2018-05-03] MEDS: AMLODIPINE 5 MG TABLET PO SCH (09:48)
[2018-05-03] MEDS: CYANOCOBALAMIN (B-12) 500mcg TABLET PO SCH (09:49)
[2018-05-03] MEDS: POLYETHYL GLYCOL 3350 17gm PACKET PO SCH (09:49)
[2018-05-03] MEDS: METFORMIN 1,000 MG TABLET PO SCH ×2 (09:49→18:05)
[2018-05-03] MEDS: ESCITALOPRAM 20 MG TABLET PO SCH (09:49)
[2018-05-03] MEDS: LORATADINE 10 MG TABLET PO SCH (14:41)
[2018-05-03] MEDS: GUAIFENESIN LA 600 MG TABLET PO SCH ×2 (14:41→20:39)
[2018-05-03] MEDS: TAMSULOSIN 0.4 MG CAPSULE PO SCH (20:39)
[2018-05-03] MEDS: QUETIAPINE 50 MG TABLET PO SCH (20:39)
[2018-05-03] MEDS: MIRTAZAPINE 30 MG TABLET PO SCH (20:39)
[2018-05-03] MEDS: RANITIDINE 150 MG TABLET PO SCH (20:39)
[2018-05-03] MEDS: SUCRALFATE 1 GM TABLET PO SCH (20:39)
[2018-05-04] MEDS: LORATADINE 10 MG TABLET PO SCH ×2 (06:53→09:37)
[2018-05-04] MEDS: ESCITALOPRAM 20 MG TABLET PO SCH (09:35)
[2018-05-04] MEDS: CYANOCOBALAMIN (B-12) 500mcg TABLET PO SCH (09:35)
[2018-05-04] MEDS: FERROUS GLUCONATE 324 MG TABLET PO SCH (09:35)
[2018-05-04] MEDS: CLOPIDOGREL 75 MG TABLET PO SCH (09:35)
[2018-05-04] MEDS: METFORMIN 1,000 MG TABLET PO SCH ×2 (09:36→17:25)
[2018-05-04] MEDS: AMLODIPINE 5 MG TABLET PO SCH (09:36)
[2018-05-04] MEDS: CARVEDILOL 6.25 MG TABLET PO SCH ×2 (09:36→17:25)
[2018-05-04] MEDS: GUAIFENESIN LA 600 MG TABLET PO SCH ×2 (09:37→20:43)
[2018-05-04] MEDS: POLYETHYL GLYCOL 3350 17gm PACKET PO SCH (09:37)
[2018-05-04] MEDS ORDERED: FALL RISK - PHARMACY CONSULT MC ONE (19:28)
[2018-05-04] MEDS: RANITIDINE 150 MG TABLET PO SCH (20:43)
[2018-05-04] MEDS: SUCRALFATE 1 GM TABLET PO SCH (20:43)
[2018-05-04] MEDS: TAMSULOSIN 0.4 MG CAPSULE PO SCH (20:43)
[2018-05-04] MEDS: QUETIAPINE 50 MG TABLET PO SCH (20:43)
[2018-05-04] MEDS: MIRTAZAPINE 30 MG TABLET PO SCH (20:43)
[2018-05-05] MEDS: POLYETHYL GLYCOL 3350 17gm PACKET PO SCH (09:00)
[2018-05-05] MEDS: FERROUS GLUCONATE 324 MG TABLET PO SCH (09:01)
[2018-05-05] MEDS: LORATADINE 10 MG TABLET PO SCH (09:01)
[2018-05-05] MEDS: GUAIFENESIN LA 600 MG TABLET PO SCH ×2 (09:02→20:01)
[2018-05-05] MEDS: METFORMIN 1,000 MG TABLET PO SCH ×2 (09:02→17:21)
[2018-05-05] MEDS: ESCITALOPRAM 20 MG TABLET PO SCH (09:03)
[2018-05-05] MEDS: CARVEDILOL 6.25 MG TABLET PO SCH ×2 (09:03→17:21)
[2018-05-05] MEDS: CYANOCOBALAMIN (B-12) 500mcg TABLET PO SCH (09:03)
[2018-05-05] MEDS: AMLODIPINE 5 MG TABLET PO SCH (09:13)
[2018-05-05] MEDS: CLOPIDOGREL 75 MG TABLET PO SCH (09:13)
[2018-05-05] MEDS: MIRTAZAPINE 30 MG TABLET PO SCH (20:01)
[2018-05-05] MEDS: TAMSULOSIN 0.4 MG CAPSULE PO SCH (20:01)
[2018-05-05] MEDS: QUETIAPINE 50 MG TABLET PO SCH (20:01)
[2018-05-05] MEDS: RANITIDINE 150 MG TABLET PO SCH (20:01)
[2018-05-05] MEDS: SUCRALFATE 1 GM TABLET PO SCH (20:01)
[2018-05-06] MEDS: LORATADINE 10 MG TABLET PO SCH (05:53)
[2018-05-06] MEDS: AMLODIPINE 5 MG TABLET PO SCH (08:36)
[2018-05-06] MEDS: CLOPIDOGREL 75 MG TABLET PO SCH (08:36)
[2018-05-06] MEDS: METFORMIN 1,000 MG TABLET PO SCH ×2 (08:36→17:35)
[2018-05-06] MEDS: CYANOCOBALAMIN (B-12) 500mcg TABLET PO SCH (08:36)
[2018-05-06] MEDS: GUAIFENESIN LA 600 MG TABLET PO SCH ×2 (08:36→20:07)
[2018-05-06] MEDS: ESCITALOPRAM 20 MG TABLET PO SCH (08:36)
[2018-05-06] MEDS: POLYETHYL GLYCOL 3350 17gm PACKET PO SCH (08:37)
[2018-05-06] MEDS: FERROUS GLUCONATE 324 MG TABLET PO SCH (08:37)
[2018-05-06] MEDS: CARVEDILOL 6.25 MG TABLET PO SCH ×2 (08:37→17:35)
--- NOTE | 2018-05-06 18:16 | Orthopedic Progress Note ---
Date: Date: 05/06/18 Time: 1812 Subjective/Severity of Illness: Mr. Palafox is doing well. He denies any concerns or complaints. Anticipated discharge to OR in [place] tomorrow. Exam - Constitutional Vital Signs: Temperature 97.8 F 05/06/18 07:28 Pulse Rate 66 05/06/18 07:28 Respiratory Rate 16 05/06/18 07:28 Blood Pressure 144/72 H 05/06/18 07:28 Pulse Oximetry 91 05/06/18 07:28 General: healthy appearing, no acute distress, well developed, well groomed Nutritional Appearance: well nourished Orientation: alert, oriented x3 - Respiratory Respiratory Exam: non-labored - Cardiac Cardiovascular exam: pedal pulses intact - Abdominal GI/Abdominal Exam: soft - Labs Result Diagrams: 03/21/18 10:00 03/21/18 10:00 H & H 02/04/18 02/07/18 02/11/18 Range/Units 11:33 04:16 17:57 Hgb 9.8 L 9.2 L 9.6 L (13.5-17.5) GM/DL Hct 31.2 L 29.4 L 30.6 L (41-53) % 02/14/18 02/14/18 02/14/18 Range/Units 04:09 13:13 17:37 Hgb 8.7 L 9.8 L D 10.6 L (13.5-17.5) GM/DL Hct 27.9 L 31.5 L D (41-53) % 02/14/18 02/16/18 02/18/18 Range/Units 21:43 04:34 03:56 Hgb 10.9 L 10.7 L 10.8 L (13.5-17.5) GM/DL Hct 33.3 L 33.4 L (41-53) % 02/18/18 02/19/18 02/20/18 Range/Units 21:15 04:47 04:18 Hgb 9.3 L D 8.5 L 7.0 L D (13.5-17.5) GM/DL Hct 28.4 L D 26.5 L 21.9 L D (41-53) % 02/20/18 02/21/18 02/22/18 Range/Units 12:49 04:31 04:09 Hgb 7.9 L D 7.4 L 7.2 L (13.5-17.5) GM/DL Hct 23.2 L 22.7 L (41-53) % 02/23/18 02/24/18 02/25/18 Range/Units 03:57 04:12 04:11 Hgb 7.6 L 7.4 L 7.3 L (13.5-17.5) GM/DL Hct 23.6 L 23.0 L 23.2 L (41-53) % 02/26/18 03/03/18 03/08/18 Range/Units 03:58 04:03 04:49 Hgb 7.5 L 7.8 L 9.1 L (13.5-17.5) GM/DL Hct 23.8 L 25.0 L 29.4 L (41-53) % 03/21/18 Range/Units 10:00 Hgb 9.7 L (13.5-17.5) GM/DL Hct 30.1 L (41-53) % Orthopedic Assessment and Plan (1) Hip dislocation, right Status: Acute Qualifiers: Encounter type: initial encounter Qualified Code(s): S73.004A - Unspecified dislocation of right hip, initial encounter Problem Details: Recurrent, closed reduction in OR 02/04/18, 02/06/18, 02/12/18--> VAIBHAV 02/18/18 Assessment and Plan: Mr Foley was taken to the OR on 02/04/18, 02/06/18 & 02/12/18 for closed reduction of the right hip under anesthesia. 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 Continue hip precautions. 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 Gaming Guardianship/conservator, see CM notes for details. Wound consult- managing pressure ulcers on bilateral heels. Dr. Tejada managing depression. Will change miralax to prn for bowel motivation, Dulcolax prn. Current anti-coagulation protocol- Plavix 75mg daily. ASA 81mg. SCD's for added protection - Additional Diagnoses Atrial Fibrillation: rate controlled Diabetes: resume oral medications CAD: no active chest pain Anemia: no intervention required Hospital Course Summary Disclaimer: The visit summary below is not to be considered part of the above Progress Note. 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 Psychiatric evaluation suggested that the patient is not competent to make his own medication decisions. Case management is working on obtaining a guardian for the patient for consent to do a hip revision. Patient remains at high risk for recurrent dislocation, especially if transferred to senior care as [facility] nursing staff is well educated on precautions. Continue with current cares. Continue wedge pillow and straight leg immobilizer to minimize risk. Encourage participation in therapies to work with him on precautions and ambulation. Continue with bowel motivation. Recheck labs in AM to monitor blood counts, electrolytes and renal function. 02/16/18 [place] - Covering for Dr Lewis Clinically doing well. Forgetful about hip precautions. Plavix on hold for upcoming surgical procedure. Will start SCD for DVT prevention. Blood pressure and blood sugars stable - continue with current treatment. Encourage participation in therapies to work with him on precautions and ambulation. Patient remains at high risk for recurrent dislocation, especially if transferred to senior care as [facility] nursing staff is well educated on precautions. Anticipate Dr Lewis's return tomorrow. 02/19/18 [place] - Covering for Dr Lewis Will decrease IVF to 50cc/hr - oral drive with decrease. Encourage nursing to give Dulcolax to help with bowel function. Urine output slow-will place Herman, start bladder retraining, and initiate Flomax. Nursing not able to place Herman as pt very resistant to that intervention. Will hold on Herman, but continue Flomax. Continue with post op pain control and therapy. Blood sugars and pressure stable with current regimen. Lab ordered for tomorrow. 02/20/18 [place] - covering for Dr Lewis Hgb down to 7.0; will type and cross for 1 unit PRBC. With weight trending up give Lasix post-transfusion. DC IVF. Oral intake starting to improve today. Start tracking I/O - if UO does not improve may need to restart IVF. Renal function is stable. Constipation - BM on 02/1802/21/[address] Lewis Hgb 7.4, s/p 1 unit PRBC transfusion yesterday (and 2 units on 02/14). Dressing is reportedly c/d/i without drainage. Check stool for occult blood. Iron level was low at 34 on on 02/11. Platelets also showing downward trend: Hold naproxen & ASA. He is hemodynamically stable. Weight continues to trend up; he is up 6 kg from date of admission. Anemia could be partly dilutional in nature. Unable to calculate I/O d/t urinary incontinence. He is maintaining saturations on room air. CXR yesterday was negative. Electrolytes/renal function stable. 02/22/18 Hgb 7.2, s/p 3 unit PRBC during hospital course and has been treated with IV iron. Oral iron initiated. Hemoccult pending. Anticipate probable need for additional blood tomorrow, type and screen in a.m. Iron level was low at 34 on on 02/11. Hold naproxen & ASA. May be hemolyzing blood previously transfused, bilirubin normal yesterday-Check haptoglobin/LDH with labs tomorrow. Weight down 3 kg from yesterday but remains positive through the hospitalization and hemoglobin down slightly despite negative fluid balance yesterday. Patient describe dysuria yesterday and urinary frequency which he indicated has been present for about 6 months, UA negative. Urine volumes improving since Flomax initiated. Constipation resolved. Limited activity with physical therapy; guardianship pending to permit placement. 02/23/18 Hgb 7.6-slightly improved today, s/p 3 unit PRBC during hospital course and (2 units preceded VAIBHAV) and has been treated with IV iron. Oral iron initiated. Hemoccult pending. Continue iron therapy; no clear evidence of hemolysis thus far. Continue to monitor hemoglobin daily until above 8. Last bowel movement at least 4-5 days ago-MiraLAX/Senokot doses increased; may require milk of magnesia or alternate stimulant. Much more interactive/appropriate responses today. Will discuss with case management tomorrow, may benefit from repeat psychiatric assessment of competency. 02/24/18 Hgb 7.4. Stool for occult blood is pending. B12 also pending. Continue iron. ASA and Naproxen are on hold. Constipation - last BM 02/21 per RN. Will give Dulcolax today if no results. Good oral intake. VSS; hemodynamically stable. 02/25/18 Hgb 7.3. Stool for occult blood is pending (had BM last night but Hemoccult was not sent). B12 low normal at 272 - methylmalonic acid level ordered; initiate oral B-12 supplementation. Haptoglobin pending. Continue iron. ASA and Naproxen are on hold. Continues on Plavix. VSS; hemodynamically stable. Largely asymptomatic in regards to persistent anemia. Weight is up 2 kg over the past 48 hours-Lasix to be given again today. 02/26/18 [place] - Covering for Dr. Lewis Hemoglobin largely stable at 7.5 this am. Pain controlled. Tolerating therapy. Blood pressure and blood sugars stable - continue treatments. Continue with supportive care, support, and therapy. Anticipate Dr Lewis's return tomorrow. 03/01/18 [place] - Covering for Dr. Lewis Medically doing well-BP, sugars, vitals stable. Emotional support for loss of spouse - very difficult transition for him. Continue with supportive care. Plan - 03/02/18: Covering for Dr. Lewis Medically doing well-BP, sugars, vitals stable. Emotional support for loss of spouse - very difficult transition for him. May consider psychiatric consult for acute grief and treatment recommendations. Continue with supportive care. Will recheck labs in AM to monitor blood counts, electrolytes and renal function. Case management assisting with discharge planning. Dr. Lewis to assume care on 03/03/18. 04/23/18 Psych note- Would recommend increasing Remeron to 30mg at HS. Will place order. 04/24/18 Psych: Continue current care. Patient does not give any indication that he is suicidal or is an imminent risk to himself currently other than needing a guardian (which is being finalized).
[2018-05-06] MEDS: TAMSULOSIN 0.4 MG CAPSULE PO SCH (20:07)
[2018-05-06] MEDS: SUCRALFATE 1 GM TABLET PO SCH (20:08)
[2018-05-06] MEDS: QUETIAPINE 50 MG TABLET PO SCH (20:08)
[2018-05-06] MEDS: RANITIDINE 150 MG TABLET PO SCH (20:08)
[2018-05-06] MEDS: MIRTAZAPINE 30 MG TABLET PO SCH (20:08)
[2018-05-06 20:23] VITALS: RESP 18
[2018-05-07] MEDS: LORATADINE 10 MG TABLET PO SCH (05:44)
--- NOTE | 2018-05-07 07:01 | Discharge Summary ---
Orthopedic Discharge Info Date of admission: 02/13/18 11:08 Anticipated date of discharge: 05/07/18 Primary care physician: Jere Lewis DO Attending Physician: Dell Gaming MD Consults: 02/04/18 IRU Screening [Inpatient Rehab Screening] [CONS] Routine Screen requested by:: Family/Patient Comment Text:: DISLOCATED HIP, FELL AT HOME 02/06/18 12:57 Physician Consult [CONS] Routine Consulting Provider: Bernadette Tejada Reason For Exam: determine patient competency Ordering Provider has Notified Manager R D: Yes 02/11/18 10:34 Physician Consult [CONS] Routine Consulting Provider: Jere Lewis Reason For Exam: medical management Ordering Provider has Notified Manager R D: No 02/18/18 18:15 Case Management Consult [CONS] Routine Reason For Exam: Discharge Planning DME-Walker [CONS] Routine Height: 6 ft 2 in Weight: 102.7 kg Total Joint Outpatient Therapy [CONS] Routine Comment: Remove dressing in 2 weeks 02/26/18 13:36 Wound Vein Clinic Consult [CONS] Routine Reason for consultation: RIGHT HEEL BLISTER 02/28/18 09:09 Wound Vein Clinic Consult [CONS] Routine Reason for consultation: Open lesion under right armpit 03/21/18 09:11 Doctor [Physician Consult] [CONS] Routine Consulting Provider: Bernadette Tejada Reason For Exam: depression, re-assess need for guardianship Ordering Provider has Notified Manager R D: No Comment: please have dr see pt today 03/21 - Discharge Diagnosis (1) Hip dislocation, right Qualifiers: Encounter type: initial encounter Qualified Code(s): S73.004A - Unspecified dislocation of right hip, initial encounter Problem Details: Recurrent, closed reduction in OR 02/04/18, 02/06/18, 02/12/18--> VAIBHAV 02/18/18 Status: Acute (2) Status post revision of total hip Status: Acute - Procedures Procedures: Procedures Assistance with Respiratory Ventilation, Less than 24 Consecutive Hours, Continuous Positive Airway Pressure (09/30/15) Dilation of Coronary Artery, Two Sites with Drug-eluting Intraluminal Device, Percutaneous Approach (09/30/15) Fluoroscopy of Left Heart using Low Osmolar Contrast (09/30/15) Fluoroscopy of Multiple Coronary Arteries using Low Osmolar Contrast (09/30/15) Hip bearing surface, [id number] (11/16/08) Measurement of Cardiac Sampling and Pressure, Left Heart, Percutaneous Approach (09/30/15) Revision of Synthetic Substitute in Right Hip Joint, Femoral Surface, External Approach (02/13/18) Total hip replacement (11/16/08) Transfusion of Nonautologous Red Blood Cells into Peripheral Vein, Percutaneous Approach (09/30/15) - Laboratory Result Diagrams: 03/21/18 10:00 03/21/18 10:00 Laboratory: H & H 02/04/18 02/07/18 02/11/18 Range/Units 11:33 04:16 17:57 Hgb 9.8 L 9.2 L 9.6 L (13.5-17.5) GM/DL Hct 31.2 L 29.4 L 30.6 L (41-53) % 02/14/18 02/14/18 02/14/18 Range/Units 04:09 13:13 17:37 Hgb 8.7 L 9.8 L D 10.6 L (13.5-17.5) GM/DL Hct 27.9 L 31.5 L D (41-53) % 02/14/18 02/16/18 02/18/18 Range/Units 21:43 04:34 03:56 Hgb 10.9 L 10.7 L 10.8 L (13.5-17.5) GM/DL Hct 33.3 L 33.4 L (41-53) % 02/18/18 02/19/18 02/20/18 Range/Units 21:15 04:47 04:18 Hgb 9.3 L D 8.5 L 7.0 L D (13.5-17.5) GM/DL Hct 28.4 L D 26.5 L 21.9 L D (41-53) % 02/20/18 02/21/18 02/22/18 Range/Units 12:49 04:31 04:09 Hgb 7.9 L D 7.4 L 7.2 L (13.5-17.5) GM/DL Hct 23.2 L 22.7 L (41-53) % 02/23/18 02/24/18 02/25/18 Range/Units 03:57 04:12 04:11 Hgb 7.6 L 7.4 L 7.3 L (13.5-17.5) GM/DL Hct 23.6 L 23.0 L 23.2 L (41-53) % 02/26/18 03/03/18 03/08/18 Range/Units 03:58 04:03 04:49 Hgb 7.5 L 7.8 L 9.1 L (13.5-17.5) GM/DL Hct 23.8 L 25.0 L 29.4 L (41-53) % 03/21/18 Range/Units 10:00 Hgb 9.7 L (13.5-17.5) GM/DL Hct 30.1 L (41-53) % Orthopedic Discharge HPI - HPI Comments Mr. Joyner is an 82 year old male who felt his right prosthetic hip slip out of socket 02/04/18 AM while arising off of the commode. He had his hip replaced years ago by Dr. Xavier. He denies any other associated trauma with this incident including head trauma. He denies paraesthesias. He was unable to bear weight following and thus presented to [facility]. Dr. Fuentes took X-rays which revealed a left hip dislocation. He last ate 02/03/18 PM, but did take his AM meds with a sip of water. He currently denies headache, change in vision , chest pain, shortness of breath, abdominal pain, open sores, dysuria. He does take Plavix for a stent placed in 2014 and is status post a previous TIA. His pain is presently on the right lateral hip, worse with activity, better with rest. Reduction attempt was made in the ER by myself and Dr. Beckham. No sedation, pain management or muscle relaxant was on board at that time. Plans were made for closed reduction in the OR later today. Basic labs were ordered Orthopedic Hospital Course Hospital course: [facility] hospital course began as the result of a simple dislocation of his right total hip on 02/04/18. Unfortunately his discharge was delayed due to concerns for his safety being home alone. His was in the hospital down in [place] with a serious illness that eventually took her life and his kids did not want to assume care of him. On 02/06/18, he again dislocated the hip which required a second closed reduction. Mr Jonyer was placed in a brace and PT worked with him on dislocation precautions. Unfortunately, he continued to be unstable and dislocated a third time on 02/12/18. At this time it was decided that he would require a hip revision to provide stability to the hip. Surgery was planned and appropriate implants were ordered for this revision. After appropriate preoperative clearance and signing of operative consent, the patient was given IV antibiotics, according to orthopedic protocol. The patient was taken to the operating room and underwent a revision arthroplasty of the right total hip on 02/18/18. At the time of surgery, it was found that the implant was loose and allowed the stem to shift in canal which explains his severe instability. Following surgery, antibiotics were discontinued less than 24 hours according to joint protocol. Appropriate anticoagulants were initiated and SCDs added for DVT prevention. The surgical incision is well healed and no dressing are required. . Pain control was obtained via multimodal approach. Bowel motivation addressed with scheduled and PRN medications. Early mobilization was initiated through PT services. Discharge arrangements made by a collaborative effort between the patient and Case Management. Dr Lewis was consulted for medical management and the hospitalist service also assisted in this. He was evaluated for an anemia which was found to be part chronic and part iron deficiency. He developed considerable confusion/agitation and was eventually seen for neuro- psych evaluation. His medications were adjusted and his symptoms slowly improved. He has depression, moderate Alzheimer disease, hoarding tendencies and has been dealing with the loss of his which occurred during this hospitalization. He was evaluated several times and found to be unsafe to return to his own home. Since his family refused to assume legal care of him, the State was contacted and eventually took over guardianship of his care. This process took over 2 months and Mr Mahajan was in our facility this entire time. He is going to the nursing facility in [place] and will not be returning to his own home. Follow-up is scheduled in July for his hip. He can see his PCP earlier if necessary. Discharge instructions given by orthopedic providers and nursing staff at discharge. Discharge condition was good. 05/07/18 07:33 Care extended to > 2 midnight stays?: Yes Discharge Plan - Med Rec/Dispo Referrals/Follow Up: Filiberto Zarate PA [Physician Manager Filter] - 08/13/18 10:00 am Jere Lewis DO [Primary Care Provider] - [place] Instructions: Revision Total Joint Arthroplasty (DC), Blood Transfusion (GEN), [facility] General Instructions, [facility] Ortho Postop Instructions Additional Instructions: Pt to f/u with Dr Lewis for all medical issues except his hip. Notify Dr Lewis for orders related to his medical care and for all medication refills. Notify Dr Gaming's office for any concerns or questions related to his hip surgery. Pt may be WBAT on his right leg. Prescriptions: New Acetaminophen [Tylenol] 500 - 1,000 mg PO Q8H PRN #100 tab PRN Reason: Pain Acetaminophen [Tylenol] 650 mg PO QID PRN tablet PRN Reason: PAIN/FEVER Aspirin *EC* [Ecotrin] 81 mg PO DAILY tablet Clopidogrel [Plavix] 75 mg PO DAILY tablet Cyanocobalamin (B-12) [Vit. B-12] 1,000 mcg PO DAILY tablet Ferrous Gluconate [Fergon] 324 mg PO WB tablet Guaifenesin LA [Mucinex LA] 1,200 mg PO BID tablet Loratadine [Claritin] 10 mg PO ACB tablet Metformin [Glucophage] 1,000 mg PO BIDWM tablet Milk of Magnesia [Mom] 30 ml PO DAILY PRN udc PRN Reason: Constipation Mirtazapine [Remeron] 30 mg PO HS tablet PEG 3350 17gm PACKET [Miralax] 17 gm PO DAILY packet Quetiapine [Seroquel] 50 mg PO HS #14 tab Tamsulosin [Flomax] 0.4 mg PO HS capsule Amlodipine [Norvasc] 5 mg PO DAILY tablet Senna + Docusate [Senna Plus Tablet] 2 tab PO BID PRN tablet PRN Reason: Constipation /Stool Softening Continue Metformin HCl 1,000 mg PO BID #0 Carvedilol 6.25 mg PO BID #0 Aspirin *EC* [Ecotrin] 81 mg PO DAILY Escitalopram [Lexapro] 20 mg PO DAILY Sucralfate [Carafate] 1 gm PO HS Clopidogrel Bisulfate [Clopidogrel] 75 mg PO DAILY Naproxen Sodium [Aleve] 220 mg PO HS raNITIdine HCl [Ranitidine HCl] 300 mg PO HS #0 Oxybutynin Chloride [Ditropan Xl] 10 mg PO DAILY Discontinued Quetiapine [Seroquel] 50 mg PO HS #30 tab - Disposition [address] [facility] Home/Facility - Dismissal Complete Discharge Instructions are:: Complete
--- NOTE | 2018-05-07 08:16 | Orthopedic Progress Note ---
Date: Date: 05/07/18 Time: 812 Subjective/Severity of Illness: Doing well. Expecting discharge to [facility] today. Plan f/u in July for his hip. No new complaints or concerns this AM. Pt is excited to leave [facility]. Orthopedic Exam Vital signs: Temperature 95.9 F L 02/05/18 15:57 Pulse Rate 64 02/05/18 15:57 Respiratory Rate 18 02/05/18 15:57 Blood Pressure 149/69 H 02/05/18 15:57 Pulse Oximetry 97 02/05/18 15:57 Vital Signs Temp Pulse Resp BP Pulse Ox 02/16/18 07:34 97.2 F 61 16 165/73 H 96 02/16/18 04:00 97.4 F 59 L 16 164/72 H 92 02/16/18 00:00 97.2 F 65 16 140/71 H 94 02/15/18 20:00 96.7 F L 66 20 106/56 93 02/15/18 16:36 96.6 F L 65 16 144/67 H 95 02/15/18 12:00 96.5 F L 61 16 159/71 H 94 Intake and Output 02/15/18 02/16/18 02/16/18 22:59 06:59 14:59 Intake Total 240 / 240 Output Total 200 / 200 350 / 350 Balance -200 / -200 -350 / -350 240 / 240 Intake: Oral 240 / 240 Output: Urine 200 / 200 350 / 350 Other: Urine Appearance Clear Clear Urine Color Yellow Yellow Stool Color Brown Stool Consistency Soft Size of Bowel Movement Smear # Voids 1 Weight 229 lb 11.547 oz Patient Weight 02/17/18 06:59 Weight 229 lb 11.547 oz - Constitutional General Appearance: Present: alert, well developed, well nourished - Respiratory Exam Present: non-labored - Abdominal Exam Present: soft - Extremities Exam Present: pulses intact. Absent: calf tenderness - Dressing Dressing: other (No dressing. Wound is healed.) - Hip Exam right Hip Exam: Present: alignment normal - Integumentary Exam Present: pink, warm, dry - Neurological Exam Present: no deficits - Psychiatric Exam Present: alert, other (spirits appear better today. ) - Labs Result Diagrams: 03/21/18 10:00 03/21/18 10:00 H & H 02/04/18 02/07/18 02/11/18 Range/Units 11:33 04:16 17:57 Hgb 9.8 L 9.2 L 9.6 L (13.5-17.5) GM/DL Hct 31.2 L 29.4 L 30.6 L (41-53) % 02/14/18 02/14/18 02/14/18 Range/Units 04:09 13:13 17:37 Hgb 8.7 L 9.8 L D 10.6 L (13.5-17.5) GM/DL Hct 27.9 L 31.5 L D (41-53) % 02/14/18 02/16/18 02/18/18 Range/Units 21:43 04:34 03:56 Hgb 10.9 L 10.7 L 10.8 L (13.5-17.5) GM/DL Hct 33.3 L 33.4 L (41-53) % 02/18/18 02/19/18 02/20/18 Range/Units 21:15 04:47 04:18 Hgb 9.3 L D 8.5 L 7.0 L D (13.5-17.5) GM/DL Hct 28.4 L D 26.5 L 21.9 L D (41-53) % 02/20/18 02/21/18 02/22/18 Range/Units 12:49 04:31 04:09 Hgb 7.9 L D 7.4 L 7.2 L (13.5-17.5) GM/DL Hct 23.2 L 22.7 L (41-53) % 02/23/18 02/24/18 02/25/18 Range/Units 03:57 04:12 04:11 Hgb 7.6 L 7.4 L 7.3 L (13.5-17.5) GM/DL Hct 23.6 L 23.0 L 23.2 L (41-53) % 02/26/18 03/03/18 03/08/18 Range/Units 03:58 04:03 04:49 Hgb 7.5 L 7.8 L 9.1 L (13.5-17.5) GM/DL Hct 23.8 L 25.0 L 29.4 L (41-53) % 03/21/18 Range/Units 10:00 Hgb 9.7 L (13.5-17.5) GM/DL Hct 30.1 L (41-53) % Orthopedic Assessment and Plan (1) Hip dislocation, right Status: Acute Qualifiers: Encounter type: initial encounter Qualified Code(s): S73.004A - Unspecified dislocation of right hip, initial encounter Problem Details: Recurrent, closed reduction in OR 02/04/18, 02/06/18, 02/12/18--> VAIBHAV 02/18/18 (2) Status post revision of total hip Status: Acute Assessment and Plan: S/P revision of right total hip arthroplasty on 02/18/[address] Gaming Guardianship/conservator obtained by the [facility]. See paperwork Pt leaving to [facility] today. F/U with Dr Lewis for medical needs. - Additional Diagnoses Atrial Fibrillation: rate controlled Diabetes: resume oral medications CAD: no active chest pain Anemia: no intervention required Hospital Course Summary Disclaimer: The visit summary below is not to be considered part of the above Progress Note. 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 Psychiatric evaluation suggested that the patient is not competent to make his own medication decisions. Case management is working on obtaining a guardian for the patient for consent to do a hip revision. Patient remains at high risk for recurrent dislocation, especially if transferred to prison as [facility] nursing staff is well educated on precautions. Continue with current cares. Continue wedge pillow and straight leg immobilizer to minimize risk. Encourage participation in therapies to work with him on precautions and ambulation. Continue with bowel motivation. Recheck labs in AM to monitor blood counts, electrolytes and renal function. 02/16/18 [place] - Covering for Dr Lewis Clinically doing well. Forgetful about hip precautions. Plavix on hold for upcoming surgical procedure. Will start SCD for DVT prevention. Blood pressure and blood sugars stable - continue with current treatment. Encourage participation in therapies to work with him on precautions and ambulation. Patient remains at high risk for recurrent dislocation, especially if transferred to prison as [facility] nursing staff is well educated on precautions. Anticipate Dr Lewis's return tomorrow. 02/19/18 [place] - Covering for Dr Lewis Will decrease IVF to 50cc/hr - oral drive with decrease. Encourage nursing to give Dulcolax to help with bowel function. Urine output slow-will place Herman, start bladder retraining, and initiate Flomax. Nursing not able to place Herman as pt very resistant to that intervention. Will hold on Herman, but continue Flomax. Continue with post op pain control and therapy. Blood sugars and pressure stable with current regimen. Lab ordered for tomorrow. 02/20/18 [place] - covering for Dr Lewis Hgb down to 7.0; will type and cross for 1 unit PRBC. With weight trending up give Lasix post-transfusion. DC IVF. Oral intake starting to improve today. Start tracking I/O - if UO does not improve may need to restart IVF. Renal function is stable. Constipation - BM on 02/1802/21/[address] Lewis Hgb 7.4, s/p 1 unit PRBC transfusion yesterday (and 2 units on 02/14). Dressing is reportedly c/d/i without drainage. Check stool for occult blood. Iron level was low at 34 on on 02/11. Platelets also showing downward trend: Hold naproxen & ASA. He is hemodynamically stable. Weight continues to trend up; he is up 6 kg from date of admission. Anemia could be partly dilutional in nature. Unable to calculate I/O d/t urinary incontinence. He is maintaining saturations on room air. CXR yesterday was negative. Electrolytes/renal function stable. 02/22/18 Hgb 7.2, s/p 3 unit PRBC during hospital course and has been treated with IV iron. Oral iron initiated. Hemoccult pending. Anticipate probable need for additional blood tomorrow, type and screen in a.m. Iron level was low at 34 on on 02/11. Hold naproxen & ASA. May be hemolyzing blood previously transfused, bilirubin normal yesterday-Check haptoglobin/LDH with labs tomorrow. Weight down 3 kg from yesterday but remains positive through the hospitalization and hemoglobin down slightly despite negative fluid balance yesterday. Patient describe dysuria yesterday and urinary frequency which he indicated has been present for about 6 months, UA negative. Urine volumes improving since Flomax initiated. Constipation resolved. Limited activity with physical therapy; guardianship pending to permit placement. 02/23/18 Hgb 7.6-slightly improved today, s/p 3 unit PRBC during hospital course and (2 units preceded VAIBHAV) and has been treated with IV iron. Oral iron initiated. Hemoccult pending. Continue iron therapy; no clear evidence of hemolysis thus far. Continue to monitor hemoglobin daily until above 8. Last bowel movement at least 4-5 days ago-MiraLAX/Senokot doses increased; may require milk of magnesia or alternate stimulant. Much more interactive/appropriate responses today. Will discuss with case management tomorrow, may benefit from repeat psychiatric assessment of competency. 02/24/18 Hgb 7.4. Stool for occult blood is pending. B12 also pending. Continue iron. ASA and Naproxen are on hold. Constipation - last BM 02/21 per RN. Will give Dulcolax today if no results. Good oral intake. VSS; hemodynamically stable. 02/25/18 Hgb 7.3. Stool for occult blood is pending (had BM last night but Hemoccult was not sent). B12 low normal at 272 - methylmalonic acid level ordered; initiate oral B-12 supplementation. Haptoglobin pending. Continue iron. ASA and Naproxen are on hold. Continues on Plavix. VSS; hemodynamically stable. Largely asymptomatic in regards to persistent anemia. Weight is up 2 kg over the past 48 hours-Lasix to be given again today. 02/26/18 [place] - Covering for Dr. Lewis Hemoglobin largely stable at 7.5 this am. Pain controlled. Tolerating therapy. Blood pressure and blood sugars stable - continue treatments. Continue with supportive care, support, and therapy. Anticipate Dr Lewis's return tomorrow. 03/01/18 [place] - Covering for Dr. Lewis Medically doing well-BP, sugars, vitals stable. Emotional support for loss of spouse - very difficult transition for him. Continue with supportive care. Plan - 03/02/18: Covering for Dr. Lewis Medically doing well-BP, sugars, vitals stable. Emotional support for loss of spouse - very difficult transition for him. May consider psychiatric consult for acute grief and treatment recommendations. Continue with supportive care. Will recheck labs in AM to monitor blood counts, electrolytes and renal function. Case management assisting with discharge planning. Dr. Lewis to assume care on 03/03/18. 04/23/18 Psych note- Would recommend increasing Remeron to 30mg at HS. Will place order. 04/24/18 Psych: Continue current care. Patient does not give any indication that he is suicidal or is an imminent risk to himself currently other than needing a guardian (which is being finalized).
[2018-05-07] MEDS: CLOPIDOGREL 75 MG TABLET PO SCH (08:25)
[2018-05-07] MEDS: GUAIFENESIN LA 600 MG TABLET PO SCH ×2 (08:25→20:43)
[2018-05-07] MEDS: ESCITALOPRAM 20 MG TABLET PO SCH (08:25)
[2018-05-07] MEDS: POLYETHYL GLYCOL 3350 17gm PACKET PO SCH (08:26)
[2018-05-07] MEDS: FERROUS GLUCONATE 324 MG TABLET PO SCH (08:26)
[2018-05-07] MEDS: METFORMIN 1,000 MG TABLET PO SCH ×2 (08:26→17:45)
[2018-05-07] MEDS: CYANOCOBALAMIN (B-12) 500mcg TABLET PO SCH (08:26)
[2018-05-07] MEDS: CARVEDILOL 6.25 MG TABLET PO SCH ×2 (08:26→17:45)
[2018-05-07] MEDS: AMLODIPINE 5 MG TABLET PO SCH (08:26)
--- NOTE | 2018-05-07 09:13 | Extended Care Facility Orders ---
Admission Orders Admit to:: ICF Allergies/Adverse Reactions: Allergies hydrocodone Adverse Reaction (Unknown, Verified 02/04/18 11:06) Confusion oxycodone Adverse Reaction (Unknown, Verified 02/04/18 11:06) Confusion Admitting Diagnosis: Confusion Admitting Physician: Dell Gaming MD Attending Physician: Dell Gaming MD Code Status: Full Code Anticiapted Length of Stay: greater than 30 days Rehab Potential: good Rehab Prognosis: good Diet: 02/20/18 Dinner Consistent Carbohydrate Diet [DIET] Calorie Level: 1999 Fluid Consistency: REGLIQU Food Consistency: CHMEAT Other Diet Modifiers: SOFT 02/21/18 Dinner Consistent Carbohydrate Diet [DIET] Calorie Level: 1999 Fluid Consistency: REGLIQU Food Consistency: CHMEAT Other Diet Modifiers: SOFT May use Facility Protocol or Standing Orders: Yes May have flu vaccine: Yes [facility] Certification: I certify that SNF services are required to be given on an inpatient basis because of the patient's need for long-term care on a continuing basis for the condition(s) for which he/she received inpatient hospital services prior to his/her transfer to the SNF. SNF inpatient care is necessary for the following reasons: Indication for [facility]: Not Applicable - Additional Information In Event of Arrest: Start CPR,call 911,send patient to the ER Resident is Aware of Diagnosis: Yes Referrals: Filiberto Zarate PA [Physician Cuff Maker] - 08/13/18 10:00 am Jere Guerra DO [Primary Care Provider] - Additional Orders: FOR ADDITIONAL ORDERS CONTACT PATIENT'S PCP DR. GUERRA AT [facility].
[2018-05-07] MEDS: SUCRALFATE 1 GM TABLET PO SCH (20:43)
[2018-05-07] MEDS: TAMSULOSIN 0.4 MG CAPSULE PO SCH (20:43)
[2018-05-07] MEDS: RANITIDINE 150 MG TABLET PO SCH (20:43)
[2018-05-07] MEDS: QUETIAPINE 50 MG TABLET PO SCH (20:43)
[2018-05-07] MEDS: MIRTAZAPINE 30 MG TABLET PO SCH (20:43)
[2018-05-08] MEDS: LORATADINE 10 MG TABLET PO SCH (06:23)
[2018-05-08 07:51] VITALS: BP 140/67; PULSE 67; TEMP 97.2; O2SAT 94
[2018-05-08] MEDS: FERROUS GLUCONATE 324 MG TABLET PO SCH (08:50)
[2018-05-08] MEDS: CARVEDILOL 6.25 MG TABLET PO SCH (08:50)
[2018-05-08] MEDS: GUAIFENESIN LA 600 MG TABLET PO SCH (08:50)
[2018-05-08] MEDS: CLOPIDOGREL 75 MG TABLET PO SCH (08:51)
[2018-05-08] MEDS: POLYETHYL GLYCOL 3350 17gm PACKET PO SCH (08:51)
[2018-05-08] MEDS: METFORMIN 1,000 MG TABLET PO SCH (08:51)
[2018-05-08] MEDS: CYANOCOBALAMIN (B-12) 500mcg TABLET PO SCH (08:51)
[2018-05-08] MEDS: AMLODIPINE 5 MG TABLET PO SCH (08:51)
[2018-05-08] MEDS: ESCITALOPRAM 20 MG TABLET PO SCH (08:51)
--- NOTE | 2018-05-08 09:06 | Orthopedic Progress Note ---
Date: Date: 05/08/18 Time: 902 Subjective/Severity of Illness: Discharge delayed yet again due to paperwork not being signed by the [employer]. No new concerns. Orthopedic Exam Vital signs: Temperature 95.9 F L 02/05/18 15:57 Pulse Rate 64 02/05/18 15:57 Respiratory Rate 18 02/05/18 15:57 Blood Pressure 149/69 H 02/05/18 15:57 Pulse Oximetry 97 02/05/18 15:57 Vital Signs Temp Pulse Resp BP Pulse Ox 02/16/18 07:34 97.2 F 61 16 165/73 H 96 02/16/18 04:00 97.4 F 59 L 16 164/72 H 92 02/16/18 00:00 97.2 F 65 16 140/71 H 94 02/15/18 20:00 96.7 F L 66 20 106/56 93 02/15/18 16:36 96.6 F L 65 16 144/67 H 95 02/15/18 12:00 96.5 F L 61 16 159/71 H 94 Intake and Output 02/15/18 02/16/18 02/16/18 22:59 06:59 14:59 Intake Total 240 / 240 Output Total 200 / 200 350 / 350 Balance -200 / -200 -350 / -350 240 / 240 Intake: Oral 240 / 240 Output: Urine 200 / 200 350 / 350 Other: Urine Appearance Clear Clear Urine Color Yellow Yellow Stool Color Brown Stool Consistency Soft Size of Bowel Movement Smear # Voids 1 Weight 229 lb 11.547 oz Patient Weight 02/17/18 06:59 Weight 229 lb 11.547 oz - Labs Result Diagrams: 03/21/18 10:00 03/21/18 10:00 H & H 02/04/18 02/07/18 02/11/18 Range/Units 11:33 04:16 17:57 Hgb 9.8 L 9.2 L 9.6 L (13.5-17.5) GM/DL Hct 31.2 L 29.4 L 30.6 L (41-53) % 02/14/18 02/14/18 02/14/18 Range/Units 04:09 13:13 17:37 Hgb 8.7 L 9.8 L D 10.6 L (13.5-17.5) GM/DL Hct 27.9 L 31.5 L D (41-53) % 02/14/18 02/16/18 02/18/18 Range/Units 21:43 04:34 03:56 Hgb 10.9 L 10.7 L 10.8 L (13.5-17.5) GM/DL Hct 33.3 L 33.4 L (41-53) % 02/18/18 02/19/18 02/20/18 Range/Units 21:15 04:47 04:18 Hgb 9.3 L D 8.5 L 7.0 L D (13.5-17.5) GM/DL Hct 28.4 L D 26.5 L 21.9 L D (41-53) % 02/20/18 02/21/18 02/22/18 Range/Units 12:49 04:31 04:09 Hgb 7.9 L D 7.4 L 7.2 L (13.5-17.5) GM/DL Hct 23.2 L 22.7 L (41-53) % 02/23/18 02/24/18 02/25/18 Range/Units 03:57 04:12 04:11 Hgb 7.6 L 7.4 L 7.3 L (13.5-17.5) GM/DL Hct 23.6 L 23.0 L 23.2 L (41-53) % 02/26/18 03/03/18 03/08/18 Range/Units 03:58 04:03 04:49 Hgb 7.5 L 7.8 L 9.1 L (13.5-17.5) GM/DL Hct 23.8 L 25.0 L 29.4 L (41-53) % 03/21/18 Range/Units 10:00 Hgb 9.7 L (13.5-17.5) GM/DL Hct 30.1 L (41-53) % Orthopedic Assessment and Plan (1) Hip dislocation, right Status: Acute Qualifiers: Encounter type: initial encounter Qualified Code(s): S73.004A - Unspecified dislocation of right hip, initial encounter Problem Details: Recurrent, closed reduction in OR 02/04/18, 02/06/18, 02/12/18--> VAIBHAV 02/18/18 Assessment and Plan: (2) Status post revision of total hip Status: Acute Assessment and Plan: S/P revision of right total hip arthroplasty on 02/18/[address] Gaming Guardianship/conservator obtained by the [facility] but failed to be signed. See paperwork Pt leaving to [place] when paperwork is complete. F/U with Dr Lewis for medical needs. Hospital Course Summary Disclaimer: The visit summary below is not to be considered part of the above Progress Note. 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 Psychiatric evaluation suggested that the patient is not competent to make his own medication decisions. Case management is working on obtaining a guardian for the patient for consent to do a hip revision. Patient remains at high risk for recurrent dislocation, especially if transferred to shelter as [facility] nursing staff is well educated on precautions. Continue with current cares. Continue wedge pillow and straight leg immobilizer to minimize risk. Encourage participation in therapies to work with him on precautions and ambulation. Continue with bowel motivation. Recheck labs in AM to monitor blood counts, electrolytes and renal function. 02/16/18 [place] - Covering for Dr Lewis Clinically doing well. Forgetful about hip precautions. Plavix on hold for upcoming surgical procedure. Will start SCD for DVT prevention. Blood pressure and blood sugars stable - continue with current treatment. Encourage participation in therapies to work with him on precautions and ambulation. Patient remains at high risk for recurrent dislocation, especially if transferred to shelter as [facility] nursing staff is well educated on precautions. Anticipate Dr Lewis's return tomorrow. 02/19/18 [place] - Covering for Dr Lewis Will decrease IVF to 50cc/hr - oral drive with decrease. Encourage nursing to give Dulcolax to help with bowel function. Urine output slow-will place Herman, start bladder retraining, and initiate Flomax. Nursing not able to place Herman as pt very resistant to that intervention. Will hold on Herman, but continue Flomax. Continue with post op pain control and therapy. Blood sugars and pressure stable with current regimen. Lab ordered for tomorrow. 02/20/18 [place] - covering for Dr Lewis Hgb down to 7.0; will type and cross for 1 unit PRBC. With weight trending up give Lasix post-transfusion. DC IVF. Oral intake starting to improve today. Start tracking I/O - if UO does not improve may need to restart IVF. Renal function is stable. Constipation - BM on 02/1802/21/[address] Lewis Hgb 7.4, s/p 1 unit PRBC transfusion yesterday (and 2 units on 02/14). Dressing is reportedly c/d/i without drainage. Check stool for occult blood. Iron level was low at 34 on on 02/11. Platelets also showing downward trend: Hold naproxen & ASA. He is hemodynamically stable. Weight continues to trend up; he is up 6 kg from date of admission. Anemia could be partly dilutional in nature. Unable to calculate I/O d/t urinary incontinence. He is maintaining saturations on room air. CXR yesterday was negative. Electrolytes/renal function stable. 02/22/18 Hgb 7.2, s/p 3 unit PRBC during hospital course and has been treated with IV iron. Oral iron initiated. Hemoccult pending. Anticipate probable need for additional blood tomorrow, type and screen in a.m. Iron level was low at 34 on on 02/11. Hold naproxen & ASA. May be hemolyzing blood previously transfused, bilirubin normal yesterday-Check haptoglobin/LDH with labs tomorrow. Weight down 3 kg from yesterday but remains positive through the hospitalization and hemoglobin down slightly despite negative fluid balance yesterday. Patient describe dysuria yesterday and urinary frequency which he indicated has been present for about 6 months, UA negative. Urine volumes improving since Flomax initiated. Constipation resolved. Limited activity with physical therapy; guardianship pending to permit placement. 02/23/18 Hgb 7.6-slightly improved today, s/p 3 unit PRBC during hospital course and (2 units preceded VAIBHAV) and has been treated with IV iron. Oral iron initiated. Hemoccult pending. Continue iron therapy; no clear evidence of hemolysis thus far. Continue to monitor hemoglobin daily until above 8. Last bowel movement at least 4-5 days ago-MiraLAX/Senokot doses increased; may require milk of magnesia or alternate stimulant. Much more interactive/appropriate responses today. Will discuss with case management tomorrow, may benefit from repeat psychiatric assessment of competency. 02/24/18 Hgb 7.4. Stool for occult blood is pending. B12 also pending. Continue iron. ASA and Naproxen are on hold. Constipation - last BM 02/21 per RN. Will give Dulcolax today if no results. Good oral intake. VSS; hemodynamically stable. 02/25/18 Hgb 7.3. Stool for occult blood is pending (had BM last night but Hemoccult was not sent). B12 low normal at 272 - methylmalonic acid level ordered; initiate oral B-12 supplementation. Haptoglobin pending. Continue iron. ASA and Naproxen are on hold. Continues on Plavix. VSS; hemodynamically stable. Largely asymptomatic in regards to persistent anemia. Weight is up 2 kg over the past 48 hours-Lasix to be given again today. 02/26/18 [place] - Covering for Dr. Lewis Hemoglobin largely stable at 7.5 this am. Pain controlled. Tolerating therapy. Blood pressure and blood sugars stable - continue treatments. Continue with supportive care, support, and therapy. Anticipate Dr Lewis's return tomorrow. 03/01/18 [place] - Covering for Dr. Lewis Medically doing well-BP, sugars, vitals stable. Emotional support for loss of spouse - very difficult transition for him. Continue with supportive care. Plan - 03/02/18: Covering for Dr. Lewis Medically doing well-BP, sugars, vitals stable. Emotional support for loss of spouse - very difficult transition for him. May consider psychiatric consult for acute grief and treatment recommendations. Continue with supportive care. Will recheck labs in AM to monitor blood counts, electrolytes and renal function. Case management assisting with discharge planning. Dr. Lewis to assume care on 03/03/18. 04/23/18 Psych note- Would recommend increasing Remeron to 30mg at HS. Will place order. 04/24/18 Psych: Continue current care. Patient does not give any indication that he is suicidal or is an imminent risk to himself currently other than needing a guardian (which is being finalized).
--- NOTE | 2018-05-08 12:34 | Extended Care Facility Orders ---
Admission Orders Admit to:: Penitentiary Allergies/Adverse Reactions: Allergies hydrocodone Adverse Reaction (Unknown, Verified 02/04/18 11:06) Confusion oxycodone Adverse Reaction (Unknown, Verified 02/04/18 11:06) Confusion Admitting Diagnosis: Confusion Admitting Physician: Dell Gaming MD Attending Physician: Dell Gaming MD Code Status: Full Code Anticiapted Length of Stay: 30 days or less Rehab Potential: good Rehab Prognosis: good Diet: 02/20/18 Dinner Consistent Carbohydrate Diet [DIET] Calorie Level: 1999 Fluid Consistency: REGLIQU Food Consistency: CHMEAT Other Diet Modifiers: SOFT 02/21/18 Dinner Consistent Carbohydrate Diet [DIET] Calorie Level: 1999 Fluid Consistency: REGLIQU Food Consistency: CHMEAT Other Diet Modifiers: SOFT May use Facility Protocol or Standing Orders: Yes May have flu vaccine: Yes Evaluations/Treatment: PT, OT Penit[facility]iary Certification: I certify that SNF services are required to be given on an inpatient basis because of the patient's need for long term care on a continuing basis for the condition(s) for which he/she received inpatient hospital services prior to his/her transfer to the SNF. SNF inpatient care is necessary for the following reasons: Indication for [facility]iary: Postop Assessment Care - Additional Information In Event of Arrest: Start CPR,call 911,send patient to the ER Referrals: Filiberto Zarate PA [Physician Primary Grade Teacher] - 08/13/18 10:00 am Jere Lewis DO [Primary Care Provider] - Additional Orders: Please get any additional orders from PCP Dr. Lewis at [facility]. PT to instruct on hip precautions. Follow hip precautions. Diabetic diet. Check BGM's PRN.
== END 2018-05-08 15:55 | DRG 467 ==
LOC: ED 10:23 → SRG 13:04 → SUR 13:04 → SRG 02-07 10:48
PROVIDERS: ADMIT Orthopaedic Surgery; ATTEND Orthopaedic Surgery